=== PATIENT | male | born 1965 | race Caucasian/White ===

== ENCOUNTER → 2016-11-04 | Day surgery (SDC) | payer MEDICARE ==
[~2016-11-04] VITALS: Ht 165.1 cm; Wt 65.8 kg
[~2016-11-04] MED LIST: ANDROGEL TD; ASPI1TAB PO; ATIV1TAB10 PO; ATOR1TAB21 PO; BACL5TA PO; CALC600T10 PO; CELE100C PO; FLOM5CAP PO; HYDR25T PO; KETO10TAB PO; LEVO125T41 PO; LEVO150T OR; LIDOCAINE 2% INJ 100 MG/5 ML SDV (FOR ANES.) As Ordered ONE; LUNE1TAB9 PO; LevoFLOXacin 500 MG in APPROPRIATE DILUENT 1 EA IV ONE; MIDAZOLAM INJ 2 MG/2 ML VIAL (J2250) As Ordered ONE; MORP30SU RE; NEUR400C OR; PERC5TAB8 OR; PERCOCET PO; PRED10TA PO; PRED20TA OR; PROM25TA PO; VENL37.598 PO; VENL75CA PO; VITA200015 PO; ZOLO100T OR; [UNRECOGNIZED DRUG - CODE] TOP; fentaNYL 100 MCG/2 ML INJECTION (J3010) As Ordered ONE
--- NOTE | 2016-11-04 09:18 | REP ---
Clinical: Nephrolithiasis. Technique single supine view of the abdomen and pelvis. Findings: Approximately 12 mm calcification overlies the lower pole left kidney. Further evaluation of the urinary tract system is limited due to overlying bowel gas. No evidence for bowel obstruction. No organomegaly. Skeletal structures demonstrate age-related degenerative changes. Impression: Conglomerate of approximately 12 mm calcifications in the lower pole left kidney. Signed by Silvino Yadav MD 11/04/2016 09:09 A
[2016-11-04 11:35] VITALS: BP 128/86
--- NOTE | 2016-11-04 13:09 | RO ---
DATE OF PROCEDURE: 11/04/2016 PREPROCEDURE DIAGNOSIS: Left kidney stone. POSTPROCEDURE DIAGNOSIS: Left kidney stone. PROCEDURE: Left extracorporeal shock wave lithotripsy. SURGEON: Akin Gutierrez MD. MECHANICAL TEST TECHNICIAN: None. ANESTHESIA: Monitored anesthesia care (MAC). COMPLICATIONS: None. ESTIMATED BLOOD LOSS: N/A. HISTORY OF PRESENT ILLNESS: This is a 51-year-old male patient with a 10 mm stone in the left lower pole. He has consented for a left extracorporeal shock wave lithotripsy. DESCRIPTION OF PROCEDURE: With the patient under MAC anesthesia in supine position, we found the stone with ultrasound and x-ray. We gave a total of 2500 shock wave lithotripsies at a power of 1 to 20. The first 100 shock waves were done at a level of 1 to 5. The following 100 shock waves were done at a level of 5 to 10. The following 2300 shock waves were done at a level of 10 to 20. There were no complications after surgery. The patient tolerated well the procedure. We will follow the patient in 3 weeks at [facility]. We will given him Flomax and Percocet for pain. He can strain urine, increase water intake for 3 liters. There were no complications during surgery.
== END | disposition home or self-care (01) ==
LOC: M SDC 06:18
PROVIDERS: ATTEND Urology
DX: N20.0 Calculus of kidney (principal); M51.34 Other intervertebral disc degeneration, thoracic region; M50.30 Other cervical disc degeneration, unspecified cervical region; F32.9 Major depressive disorder, single episode, unspecified; N52.9 Male erectile dysfunction, unspecified; E78.00 Pure hypercholesterolemia, unspecified; E23.0 Hypopituitarism; M19.90 Unspecified osteoarthritis, unspecified site; G47.9 Sleep disorder, unspecified; F41.9 Anxiety disorder, unspecified; N40.0 Benign prostatic hyperplasia without lower urinary tract symptoms; Z79.899 Other long term (current) drug therapy; Z79.82 Long term (current) use of aspirin; Z79.52 Long term (current) use of systemic steroids; Z88.0 Allergy status to penicillin; Z88.8 Allergy status to other drugs, medicaments and biological substances
CPT/HCPCS: 36415; 50590; 74000; 86850; 86900; 86901; J1956; J2250; J3010

== ENCOUNTER → 2016-11-26 | Outpatient (CLI) | payer MEDICARE ==
[~2016-11-26] MED LIST changes: -LIDOCAINE 2% INJ 100 MG/5 ML SDV (FOR ANES.) As Ordered ONE; -LevoFLOXacin 500 MG in APPROPRIATE DILUENT 1 EA IV ONE; -MIDAZOLAM INJ 2 MG/2 ML VIAL (J2250) As Ordered ONE; -fentaNYL 100 MCG/2 ML INJECTION (J3010) As Ordered ONE
--- NOTE | 2016-11-29 14:13 | REP ---
MR LUMBAR SPINE WITHOUT CONTRAST: 11/26/2016 COMPARISON: 09/24/2009 CLINICAL HISTORY: Back pain, radiculopathy lumbar region. Osteoarthritis. TECHNIQUE: Axial and sagittal T1- and T2-sequences provided. Sagittal images show some loss of lordosis. There is disc space narrowing, greatest at the L1-2 level with discogenic endplate changes. Loss of disc water signal at all lumbar levels. There is no compression deformity. The conus terminates at upper aspect of L1. T11-12 and T12-L1 levels show no disc bulge or herniation and no spinal or foraminal stenosis. At L1-2, there is small posterior osteophytic ridge with broad-based disc bulge but no significant central canal stenosis. The foramina show adequate perineural fat without nerve root compression. At L2-3, there is only minimal disc bulge without central canal stenosis or foraminal encroachment. At L3-4, there is no significant disc bulge, central canal stenosis, or change in that appearance from previous. Some facet arthropathy is noted. The foramina show slight loss of perineural fat, left more than right, due to disc bulge but no nerve root compression. At the L4-5 level, there is a minimal disc bulge and some facet hypertrophy, but without central canal stenosis. The foramina are adequate and without nerve root compression on either side. At L5-S1, some broad-based disc bulge flattening the ventral thecal sac. Cross-sectional area of the canal intact. Hypertrophic facet changes noted. There is foraminal encroachment on the left and right side for those L5 nerve roots due to combined factors. No other findings. IMPRESSION: 1. Multilevel degenerative disc changes with bilateral foraminal encroachment at L5-S1 due to combined factors and minimal disc bulges at L4-5 and L5-S1.2. Progression of degenerative disc changes at L1-2 with broad-based disc bulge without central canal stenosis or significant foraminal encroachment. Otherwise stable. Signed by Sebastien Pickard MD 11/29/2016 02:34 P
== END ==
LOC: M RAD 13:07
PROVIDERS: ATTEND Family Medicine
DX: M47.26 Other spondylosis with radiculopathy, lumbar region (principal)

== ENCOUNTER → 2016-12-14 | Outpatient (CLI) | payer MEDICARE ==
--- NOTE | 2016-12-15 07:48 | DEXA ---
AP SPINE L1 - L4 1.395 1.3 1.7 LT FEMUR TOTAL 0.885 -1.5 -1.0 RT FEMUR TOTAL 0.917 -1.3 -0.8 TOTAL BODY TOTAL OTHER DUAL FEMUR FRAX* ASSESSMENT Risk factors: Chronic glucocorticoids, history of adult fracture, hypogonadism. 10 year probability of fracture Major osteoporotic fracture 14.1 % Hip fracture 2.1 % COMMENTS: Normal bone densitometry of the spine. There is low bone density of the hips. The increased density of the spine does represent a significant change. The increased density of the left hip does not represent a significant change. The increased density of the right hip does not represent a significant change. The density of the spine has increased 14.1% since the initial exam on 2008. The spine density has increased 7.6% since the most recent exam on 08/01/2013. The density of the left hip has decreased 5.0% since the initial exam on 2008. The density of the left hip has increased 0.1% since the most recent exam on 12/2012. The density of the right hip has decreased 4.0% since the initial exam on 2008. The density of the right hip has increased 0.0% since the most recent exam on . FOLLOW-UP: Recommendation for the next bone density exam: 2 years. EDWIN
== END ==
LOC: M WHC 11:16
PROVIDERS: ATTEND Physician Assistant Medical
DX: M85.80 Other specified disorders of bone density and structure, unspecified site (principal); E55.9 Vitamin D deficiency, unspecified; E03.9 Hypothyroidism, unspecified; E78.2 Mixed hyperlipidemia; Z79.82 Long term (current) use of aspirin; Z79.52 Long term (current) use of systemic steroids; Z79.899 Other long term (current) drug therapy

== ENCOUNTER → 2016-12-14 | Outpatient (REF) | payer MEDICARE ==
[2016-12-14 14:58] LABS: ALBUMIN 3.4 GM/DL (3.2-5.2); ALBUMIN/GLOBULIN RATIO 1.03 (1.00-1.93); ALKALINE PHOSPHATASE 135 U/L (45-117); ALT/SGPT 97 U/L (12-78); ANION GAP 8 MEQ/L (8-16); AST/SGOT 55 U/L (15-37); BILIRUBIN,TOTAL 0.5 MG/DL (0.2-1.0); BLOOD UREA NITROGEN 12 MG/DL (7-18); CALCIUM LEVEL 9.1 MG/DL (8.5-10.1); CARBON DIOXIDE LEVEL 28 MEQ/L (21-32); CHLORIDE LEVEL 105 MEQ/L (98-107); CHOLESTEROL LEVEL 174 MG/DL (<200); CREATININE FOR GFR 1.01 MG/DL (0.70-1.30); GLOMERULAR FILTRATION RATE > 60.0 (>56); GLUCOSE, FASTING 93 MG/DL (70-105); SODIUM LEVEL 141 MEQ/L (136-145); TOTAL PROTEIN 6.7 GM/DL (6.4-8.2); TRIGLYCERIDES LEVEL 179 MG/DL (<150)
== END ==
LOC: M SFHCPLAZ 10:51
PROVIDERS: ATTEND Physician Assistant Medical
DX: E55.9 Vitamin D deficiency, unspecified (principal); E03.9 Hypothyroidism, unspecified; E78.2 Mixed hyperlipidemia

== ENCOUNTER → 2017-01-13 | Outpatient (REF) | payer MEDICARE ==
[~2017-01-13] MED LIST changes: +ZOFR4TAB3 PO
[2017-01-13 12:49] LABS: BASO % 0.6 % (0.0-1.0); EOS # 0.1 K/mm3 (0.0-0.50); EOS % 1.3 % (0.0-3.0); LARGE UNSTAINED CELL # 0.1 K/mm3 (0.0-0.4); LARGE UNSTAINED CELL % 1.5 % (0.0-4.0); LYMPH % 33.2 % (24.0-44.0); MEAN CORPUSCULAR HEMOGLOBIN 33.5 pg (27.0-33.0); MEAN CORPUSCULAR HGB CONC 34.8 g/dl (32.0-36.5); MEAN CORPUSCULAR VOLUME 96.2 fl (80.0-96.0); MONO # 0.7 K/mm3 (0.0-0.8); MONO % 7.7 % (0.0-5.0); NEUTROPHILS # 4.8 K/mm3 (1.8-7.7); NEUTROPHILS % 55.7 % (36.0-66.0); PLATELET COUNT, AUTOMATED 347 k/mm3 (150-450); RED CELL DISTRIBUTION WIDTH 13.2 % (11.5-14.5); WHITE BLOOD COUNT 8.7 K/mm3 (4.0-10.0)
[2017-01-13 12:53] LABS: ALBUMIN 3.8 GM/DL (3.2-5.2); ALBUMIN/GLOBULIN RATIO 1.15 (1.00-1.93); ALKALINE PHOSPHATASE 113 U/L (45-117); ALT/SGPT 60 U/L (12-78); ANION GAP 9 MEQ/L (8-16); AST/SGOT 43 U/L (15-37); BILIRUBIN,TOTAL 0.4 MG/DL (0.2-1.0); BLOOD UREA NITROGEN 12 MG/DL (7-18); CALCIUM LEVEL 9.1 MG/DL (8.5-10.1); CARBON DIOXIDE LEVEL 27 MEQ/L (21-32); CHLORIDE LEVEL 107 MEQ/L (98-107); FREE T4 1.38 NG/DL (0.76-1.46); GLOMERULAR FILTRATION RATE > 60.0 (>56); GLUCOSE, FASTING 88 MG/DL (70-105); POTASSIUM SERUM 4.6 MEQ/L (3.5-5.1); SODIUM LEVEL 143 MEQ/L (136-145); TOTAL PROTEIN 7.1 GM/DL (6.4-8.2)
== END ==
LOC: M SFHCPLAZ 10:27
PROVIDERS: ATTEND Physician Assistant Medical
DX: E23.0 Hypopituitarism (principal); Z79.899 Other long term (current) drug therapy
CPT/HCPCS: 36415; 80053; 83970; 84439; 85025; G0463

== ENCOUNTER → 2017-01-14 | Outpatient (CLI) | payer MEDICARE ==
[~2017-01-14] MED LIST changes: -ZOFR4TAB3 PO
--- NOTE | 2017-01-14 13:34 | REP ---
KUB: Single view. History: Fecal incontinence. Comparison KUB November 04, 2016. Findings: There are mild degenerative disc changes at L1-2. No other bony abnormality is seen. Psoas margins are symmetric. Flank stripes are intact. The bowel gas pattern is unremarkable. There is no evidence of colonic distension or increased stool burden. No small bowel dilation is seen. Impression: Negative KUB. No pathologic calcification seen. The previously noted renal stone is no longer visible. Signed by Korey Rodrigues MD 01/14/2017 02:05 P
== END ==
LOC: M RAD 11:33
PROVIDERS: ATTEND Physician Assistant Medical
DX: R15.9 Full incontinence of feces (principal)

== ENCOUNTER → 2017-01-14 | Outpatient (CLI) | payer MEDICARE ==
--- NOTE | 2017-01-18 05:49 | SLEEPHOME ---
DATE OF PROCEDURE: 01/14/2017 ORDERED BY: Reuben Flores MD Diagnostic home sleep testing was performed due to concern for the obstructive sleep apnea syndrome. For testing, a NOX-T3 respiratory monitoring device was used. Continuous record was made of pulse, oxygen saturation, airflow, chest and abdominal strain, and body position. 10 hours and 59 minutes of data were reviewed. Of these, 8 hours and 41 minutes were marked as time in bed. During the interval marked time in bed, there were 203 respiratory events were identified of 10 seconds in duration or greater for a respiratory event index of 23.4. The events were primarily obstructive, not exclusive to sleep position. Baseline oxygen saturation was 89%. Lowest oxygen saturation reliably recorded 81%. Baseline pulse rate 69 beats per minute. Pulse rate ranged 50-111. IMPRESSION: Abnormal home sleep testing with repetitive respiratory events and oxygen desaturations to 81% with a respiratory event index of 23.4 is consistent with the obstructive sleep apnea syndrome. RECOMMENDATION: The patient should be referred for a formal sleep evaluation and in-laboratory pressure titration.
== END ==
LOC: M SLEEP 11:39
PROVIDERS: ATTEND Family Medicine
DX: G47.9 Sleep disorder, unspecified (principal)

== ENCOUNTER 2017-01-25 05:23 | Emergency (ER) | payer MEDICARE ==
[2017-01-25] MEDS ORDERED: NS 1,000 ML IV ONE (06:00)
[2017-01-25 06:11] LABS: ALBUMIN 3.2 GM/DL (3.2-5.2); ALKALINE PHOSPHATASE 107 U/L (45-117); ALT/SGPT 27 U/L (12-78); ANION GAP 9 MEQ/L (8-16); AST/SGOT 29 U/L (15-37); BILIRUBIN,DIRECT 0.1 MG/DL (0.0-0.2); BILIRUBIN,TOTAL 0.4 MG/DL (0.2-1.0); BLOOD UREA NITROGEN 19 MG/DL (7-18); CALCIUM LEVEL 8.6 MG/DL (8.5-10.1); CARBON DIOXIDE LEVEL 25 MEQ/L (21-32); CHLORIDE LEVEL 106 MEQ/L (98-107); CREATININE FOR GFR 1.09 MG/DL (0.70-1.30); GLOMERULAR FILTRATION RATE > 60.0 (>56); GLUCOSE, FASTING 101 MG/DL (70-105); POTASSIUM SERUM 3.5 MEQ/L (3.5-5.1); SODIUM LEVEL 140 MEQ/L (136-145); TOTAL PROTEIN 6.4 GM/DL (6.4-8.2)
[2017-01-25 06:14] LABS: MEAN CORPUSCULAR HEMOGLOBIN 33.9 pg (27.0-33.0); MEAN CORPUSCULAR HGB CONC 35.8 g/dl (32.0-36.5); MEAN CORPUSCULAR VOLUME 94.6 fl (80.0-96.0); PLATELET COUNT, AUTOMATED 369 k/mm3 (150-450); RED CELL DISTRIBUTION WIDTH 12.9 % (11.5-14.5)
[2017-01-25 07:06] LABS: EOSINOPHILS 2 % (0-5)
[2017-01-25] MEDS ORDERED: KETOROLAC 30 MG/ML VIAL (J1885) IV ONE (07:15)
[2017-01-25] MEDS ORDERED: ONDANSETRON 4MG/2ML VIAL (J2405) IV ONE (07:15)
[2017-01-25] MEDS ORDERED: ZOFR4TAB3 PO (08:01)
[2017-01-25 08:28] VITALS: BP 103/56
== END 2017-01-25 08:29 | disposition home or self-care (01) ==
LOC: EDBD 05:23 → M ED 06:21
DX: E86.0 Dehydration (principal); A08.4 Viral intestinal infection, unspecified; F32.9 Major depressive disorder, single episode, unspecified; E23.0 Hypopituitarism; Z87.442 Personal history of urinary calculi; Z88.0 Allergy status to penicillin; Z88.8 Allergy status to other drugs, medicaments and biological substances; Z79.899 Other long term (current) drug therapy; Z79.82 Long term (current) use of aspirin
CPT/HCPCS: 80048; 80076; 83690; 85025; 93041; 96361; 96374; 96375; 99284; J1885; J2405

== ENCOUNTER → 2017-03-03 | Outpatient (REF) | payer MEDICARE ==
[~2017-03-03] MED LIST changes: +ZOFR4TAB3 PO
[2017-03-03 13:20] LABS: ALBUMIN 3.6 GM/DL (3.2-5.2); ALBUMIN/GLOBULIN RATIO 1.13 (1.00-1.93); ALKALINE PHOSPHATASE 121 U/L (45-117); ALT/SGPT 37 U/L (12-78); ANION GAP 10 MEQ/L (8-16); AST/SGOT 28 U/L (15-37); BILIRUBIN,TOTAL 0.4 MG/DL (0.2-1.0); BLOOD UREA NITROGEN 16 MG/DL (7-18); CARBON DIOXIDE LEVEL 26 MEQ/L (21-32); CHLORIDE LEVEL 106 MEQ/L (98-107); CREATININE FOR GFR 0.93 MG/DL (0.70-1.30); GLOMERULAR FILTRATION RATE > 60.0 (>56); GLUCOSE, FASTING 88 MG/DL (70-105); POTASSIUM SERUM 4.3 MEQ/L (3.5-5.1); SODIUM LEVEL 142 MEQ/L (136-145); TOTAL PROTEIN 6.8 GM/DL (6.4-8.2)
[2017-03-04 11:08] LABS: ALBUMIN 3.84 GM/DL (3.29-5.55); ALBUMIN % 56.5 % (55.8-66.1); GAMMA GLOBULIN % 16.2 % (11.1-18.8)
== END ==
LOC: M SFHCPLAZ 08:54
PROVIDERS: ATTEND Family Medicine
DX: M79.1 Myalgia (principal)

== ENCOUNTER → 2017-03-24 | Outpatient (CLI) | payer MEDICARE ==
--- NOTE | 2017-03-24 11:46 | REP ---
MR BRAIN WITHOUT CONTRAST: HISTORY: Right paresthesias. COMPARISON: 05/05/2006 Scattered punctate areas of increased signal intensity on T2-weighted images are present in the periventricular and subcortical white matter. This represents small vessel ischemic disease. There is no intraparenchymal hemorrhage, infarct, mass or midline shift. The sella turcica is partially empty. The ventricular system is normal in appearance. A lyudmila cisterna magna is present. There is no extracerebral collection. Mucosal thickening is present in the maxillary sinuses. IMPRESSION: Minimal small vessel ischemic disease. Signed by Oren Erwin MD 03/24/2017 12:09 P
== END ==
LOC: M RAD 10:18
PROVIDERS: ATTEND Physician Assistant Medical
DX: R53.1 Weakness (principal); I73.9 Peripheral vascular disease, unspecified

== ENCOUNTER → 2017-03-31 | Outpatient (CLI) | payer MEDICARE ==
--- NOTE | 2017-04-11 08:05 | SLEEPCENT ---
DATE OF PROCEDURE: 03/31/2017 ORDERED BY: Nazia Jenkins Nocturnal polysomnography was performed for the titration of pressure therapy in this patient with a clinical diagnosis of obstructive sleep apnea syndrome which were supported by home testing revealing a respiratory event index of 23. For testing, the patient was fit with a [employer] Simplus full face mask of small size. 4 cm of water pressure were applied to the circuit and the lights were extinguished. 8 hours and 28 minutes of data were reviewed. There were 432 minutes of sleep identified. Sleep latency was normal at 17 minutes. REM latency was prolonged at 220 minutes. Sleep architecture improved late in the study. Overall sleep efficiency was 86%. EKG showed a sinus rhythm with an average heart rate of 56 beats per minute. Frequent ventricular ectopic beats were seen. EEG showed coarsening in background consistent with medication effect. No focal events were identified. Respiratory events were found best palliated with CPAP at a pressure of +9 with which the patient slept through REM late in the study without respiratory event or oxygen desaturation. There was some limb activity but arousals from limb events occurred 7.2 times per hour. IMPRESSION: Obstructive sleep apnea syndrome (G47.33). RECOMMENDATION: Nightly use of pressure therapy 9 cm of water.
== END ==
LOC: M SLEEP 19:19
PROVIDERS: ATTEND Nurse Practitioner Adult Health
DX: G47.33 Obstructive sleep apnea (adult) (pediatric) (principal)

== ENCOUNTER → 2017-06-20 | Outpatient (CLI) | payer MEDICARE, MEDICAID ==
[~2017-06-20] MED LIST changes: +BACL10TA5 PO; -BACL5TA PO; -CALC600T10 PO; +CALC600T31 PO; +HYDR-3291 PO; +HYDR-3363 PO; -HYDR25T PO; -LUNE1TAB9 PO; +LUNE2TAB23 PO; -PRED10TA PO; +PRED10TA2 PO; +PREG100CA PO; -VENL75CA PO; +VENL75CA2 PO
--- NOTE | 2017-07-06 00:15 | ECWPNPC ---
PATIENT NAME: JACKIE AMBROSE : 1965 GENDER: MALE VISIT DATE: 06/20/2017 DISCHARGE DATE: 06/20/17 1644 VISIT LOCKED DATE TIME: PHYSICIAN: SHARON PALMER RESOURCE: SHARON PALMER REASON FOR APPOINTMENT 1. LOW BACK PAIN HISTORY OF PRESENT ILLNESS NEW PATIENT CONSULT: WHEN DID YOUR PAIN FIRST START? . BRIEFLY DESCRIBE HOW YOUR PAIN STARTED? . HOW DOES YOUR PAIN CHANGE WITH TIME? . DOES YOUR PAIN AWAKEN YOU FROM SLEEP? . HOW MANY HOURS OF SLEEP DO YOU NORMALLY GET? . ANY DIAGNOSTIC TESTING? . FACILITY WHERE TESTS WERE DONE? ____. PAIN TREATMENT TREATMENT YES CANCER HAVE YOU EVER HAD ANY TYPE OF CANCER?NO NO. 52 YEAR OLD MALE PATIENT WITH HISTORY OF CHRONIC LOW BACK PAIN. PATIENT DESCRIBES THE PAIN ACHING, TENDER, SORE, AND THROBBING WITH A PAIN SCORE OF 6/10. PATIENT STATES HIS PAIN STARTED ROUGHLY 20 YEARS AGO WHEN HE FELL FROM A ROOF. PATIENT RECEIVED A RADIOFREQUENCY IN [place] 2 YEARS AGO AND STATES AFTER THE INTERVENTION HE STARTED TO HAD PINS AND NEEDLE SENSATION DOWN HIS LEGS. PATIENT DOES NOT WANT TO USE NARCOTICS AT THIS TIME. PATIENT STATES THAT PHYSICAL THERAPY DID NOT AID THE PATIENT IN PAIN RELIEF IN THE PAST. PATIENT DENIES UNEXPLAINABLE WEIGHT LOSS, FEVER, CHILLS, NEW CHANGES ON HIS URINARY OR BOWEL CONTROL. PAIN SCREENING: PATIENT HAS A COMPLAINT OF ACUTE OR CHRONIC PAIN :YES FALL RISK SCREENING: SCREENING :NO FALLS IN THE PAST YEAR DAVID INVENTORY: QUESTIONNAIRE ASSESSEDTBD SCORE VALUE CALCULATED TBD CURRENT MEDICATIONS TAKING LEVOTHYROXINE SODIUM 125 MCG TABLET 1 TABLET ORALLY ONCE A DAY: CLARIFICATION LOWERED DOSE FURTHER TAKING CALCIUM 600 600 MG TABLET 1 TABLET ORALLY ONCE A DAY TAKING ANDROGEL 20.25 MG/1.25GM (1.62%) GEL 1 APPLICATION TO AFFECTED AREA TRANSDERMAL ONCE A DAY TAKING LUNESTA 2 MG TABLET 1 TABLET IMMEDIATELY BEFORE BEDTIME ORALLY ONCE A DAY TAKING VENLAFAXINE HCL ER 75 MG CAPSULE EXTENDED RELEASE 24 HOUR 1 CAPSULE WITH FOOD ORALLY ONCE A DAY TAKING ATIVAN 0.5 MG TABLET 1 TABLET NEEDED ORALLY EVERY 6 HRS NEEDED FOR ANXIETY MDD = 3 TAKING VITAMIN D3 2000 UNIT CAPSULE 1 CAPSULE ORALLY ONCE A DAY TAKING ATORVASTATIN CALCIUM 20 MG TABLET 1 TABLET ORALLY ONCE A DAY TAKING HYDROCORTISONE 10 MG TABLET 1 IN AM / 2 IN MID AFTERNOON/ 2 IN PM ORALLY TID TAKING MEDICAL ID BRACELET - MISCELLANEOUS DIRECTED NECKLACE DAILY DX: E27.4 TAKING VENLAFAXINE HCL ER 75 MG CAPSULE EXTENDED RELEASE 24 HOUR 1 CAPSULE WITH FOOD ORALLY ONCE A DAY TAKING VITAMIN D3 2000 UNIT CAPSULE 1 CAPSULE ORALLY ONCE A DAY TAKING LYRICA 200 MG CAPSULE 1 CAP ORALLY THREE TIMES DAILY NOT-TAKING ASPIR-81 81 MG TABLET DELAYED RELEASE 1 TABLET ORALLY ONCE A DAY NOT-TAKING COLACE 100 MG CAPSULE 1 CAPSULE NEEDED ORALLY BID NOT-TAKING SENNA 8.6 MG TABLET 2 TABLETS AT BEDTIME NEEDED ORALLY ONCE A DAY NOT-TAKING LEVITRA 2.5 MG TABLET 1 TABLET NEEDED WITHIN 24 HOURS ORALLY ONCE A DAY NOT-TAKING CLARITIN 10 MG TABLET 1 TABLET ORALLY ONCE A DAY NOT-TAKING FLUTICASONE PROPIONATE 50 MCG/ACT SUSPENSION 1 SPRAY IN EACH NOSTRIL NASALLY ONCE A DAY NOT-TAKING SOLU-CORTEF 100 MG SOLUTION RECONSTITUTED DIRECTED INJECTION ACT-O-VIAL PRN ACUTE ADRENAL INSUFFICIENCY NOT-TAKING ANDROGEL PUMP 20.25 MG/ACT (1.62%) GEL TO UNDER ARMS TRANSDERMAL ONCE A DAY MDD 2PUMPS NOT-TAKING LEVOTHYROXINE SODIUM 125 MCG TABLET 1 TABLET ORALLY ONCE A DAY MEDICATION LIST REVIEWED AND RECONCILED WITH THE PATIENT PAST MEDICAL HISTORY 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 POZO EXCEPT FOR MEDIUM HIATAL HERNIA ERECTILE DYSFUNCTION DEPRESSION HISTORY OF PAROXYSMAL ATRIAL FIBRILLATION-AUGUST 04, 2010 PROBABLY SECONDARY TO NARCOTIC WITHDRAWAL-JULY 2010 RST WITHOUT REVERSIBILITY-DR. JEAN/AUGUST 2010 TTE NORMAL-DR. JEAN RIGHT CARPAL TUNNEL SYNDROME-SEPTEMBER 2010 NCS-MILD RIGHT MEDIAN NEUROPATHY AT THE WRIST WITHOUT RADICULOPATHY-SMITH LEUKOCYTOSIS, CHRONIC OSTEOPOROSIS LUMBAR DJD-MINIMAL BULGES L4-S1, BILATERAL L5/S1 NF NARROWING BY 10/2016 MRI JOCELYN, SEVERE-12/2016 HST GERARDO 23, SAO2 TO 81% ALLERGIES PENICILLIN (FOR ALLERGIES USE ONLY): HARD TO BREATHE, SKIN REDNESS: ALLERGY SURGICAL HISTORY NO SURGICAL HISTORY DOCUMENTED. FAMILY HISTORY MOTHER: DIAGNOSED WITH DIABETES SOCIAL HISTORY GENERAL: PAIN CLINIC PFS, CLERGY, PUBLIC HEALTH REFERRALS CLERGY REFERRAL NEEDED?NO WAS THE PROVIDER NOTIFIED OF ANY PERTINENT INFO?NO PFS REFERRAL NEEDED?NO PUBLIC HEALTH REFERRAL NEEDED?NO PATIENT: ____. HOSPITALIZATION/MAJOR DIAGNOSTIC PROCEDURE NO HOSPITALIZATION HISTORY. REVIEW OF SYSTEMS REVIEWED BY: PROVIDER: SHARON PALMER MD . CONSTITUTIONAL: ANY CHANGE IN YOUR MEDICAL CONDITION? NO . CHILLS NO . FEVER NO . INFECTION: DO YOU HAVE NEW INFECTIONS? NO . DO YOU HAVE HISTORY OF MRSA? NO . MUSCULOSKELETAL: ANY NEW PATTERNS OF PAIN OR NUMBNESS? YES RIGHT LEG INCREASING IN NUMBNESS AND IS PAINFUL-BURNING . SYTEMIC LUPUS NO . GASTROENTEROLOGY: ANY NEW CHANGE IN BOWEL CONTROL? NO . BARRETTS ESOPHAGUS NO . CIRRHOSIS NO . HEPATITIS NO . LIVER FAILURE NO . ACID REFLUX NO . UNEXPLAINED WEIGHT LOSS NO . GENITOURINARY: ANY NEW CHANGE IN BLADDER CONTROL? NO . IS THERE A CHANCE YOU COULD BE ? NO . HEMATOLOGY/LYMPH: DO YOU TAKE ANY BLOOD THINNERS? (FOR EXAMPLE- COUMADIN, PLAVIX, AGGRENOX, PLATEL, PRADAXA, OR XARELTO) NO . WHEN WAS YOUR LAST DOSE? DATE: TIME: . LOW PLATELET COUNT NO . SICKLE CELL DISEASE NO . VON WILLIEBRANDS NO . FACTOR V LEIDEN NO . THALLASEMIA NO . ANEMIA NO . EASY BRUISING NO . NEUROLOGY: HAVE YOU FALLEN IN THE PAST 6 MONTHS? NO . ANY NEW EXTREMITY NUMBNESS OR WEAKNESS? NO . HEAD INJURY NO . DEMENTIA NO . CEREBRAL PALSY NO . MULTIPLE SCLEROSIS NO . DIZZINESS NO . HEADACHE NO . STROKES NO . VERTIGO NO . CARDIOLOGY: DO YOU HAVE A PACEMAKER OR DEFIBRILLATOR? NO . ANGINA NO . HEART ATTACK NO . HEART SURGERY NO . CONGESTIVE HEART FAILURE/FLUID OVERLOAD NO . CHEST PAIN NO . HIGH BLOOD PRESSURE NO . IRREGULAR HEART BEAT NO . RESPIRATORY: HAVE YOU BEEN SICK IN THE PAST WEEK? NO . FEVER NO . FLU LIKE SYMPTOMS? NO . CPAP YES . BYPAP NO . ASTHMA NO . EMPHYSEMA NO . CHRONIC LUNG DISEASES NO . SHORTNESS OF BREATH ON EXERTION NO . DO YOU USE ANY TYPE OF TOBACCO (SMOKE, SMOKELESS, CHEW)? NO . COUGH NO . SNORING NO . INTEGUMENTARY: DO YOU HAVE ANY RASHES OR OPEN SORES? NO . ALLERGIC/IMMUNO: ARE YOU ALLERGIC TO SHELLFISH OR IV DYE? NO . ANY NEW ALLERGIES? NO . PSYCHIATRIC: DO YOU HAVE THOUGHTS OF HURTING YOURSELF OR SOMEONE ELSE? NO . ARE YOU ABUSED, NEGLECTED, OR IN AN UNSAFE ENVIRONMENT? NO . ENDOCRINOLOGY: ARE YOU DIABETIC? NO . THYROID DISORDER PANHYPOPITUTARISM . OTHER: DO YOU NEED ANY PRESCRIPTIONS? NO . IF YES, PLEASE LIST: ____ . ANY NEW PROBLEMS WITH YOUR MEDICATIONS? NO . WHEN DID YOU LAST EAT? ____ . WHEN DID YOU LAST DRINK? ____ . WHAT DID YOU LAST DRINK? ____ . NAME OF PERSON DRIVING YOU HOME? ____ . DO YOU HAVE ANY OTHER QUESTIONS OR CONCERNS NO . VITAL SIGNS WT 159.2 LBS, HT 65 IN, BMI 26.49 INDEX, BP 122/80 MM HG, HR 83 /MIN, RR 18 /MIN, TEMP 98.3 F, OXYGEN SAT % 95%, NA INITIALS SC 15:03, REVIEWED BY: KG. EXAMINATION : PATIENT IS ALERT O X 3 AND COOPERATIVE. TENDERNESS IN THE LOWER BACK AND PARASPINAL MUSCLE GROUP. LIMPING FROM THE RIGHT LEG. RIGHT LEG WEAKER THEN THE LEFT AT EXTENSION AND FLEXION. MRI DONE ON 11/26/16 OF THE LUMBAR SPINE SHOWS MULTILEVEL DISC DEGENERATION ALONG WITH DISC BULGES AT L4-L5 AND L5-S1. ASSESSMENTS INTERVERTEBRAL DISC DISORDER WITH RADICULOPATHY OF LUMBAR REGION - M51.16 (PRIMARY) INTERVERTEBRAL DISC DISORDER WITH RADICULOPATHY OF LUMBOSACRAL REGION - M51.17 TREATMENT INTERVERTEBRAL DISC DISORDER WITH RADICULOPATHY OF LUMBAR REGION NOTES: WE DISCUSSED SEVERAL ISSUES WITH MR. AMBROSE'S PAIN MANAGEMENT CASE. AT THIS TIME THE PATIENT WILL CONTINUE TO USE LYRICA FOR THE NEUROPATHIC PAIN. PATIENT WILL NOT BE PRESCRIBED ANY NEW MEDICATIONS AT TODAY'S VISIT. DUE TO THE RADICULAR PAIN AND AFTER VIEWING THE MRI I WOULD LIKE TO PROCEED WITH AN INTERLAMINA EPIDURAL. WE DISCUSSED THE RISK, BENENFITS, AND ALTNERATIVES OF THE INJECTION AND AT THIS TIME THE PATIENT WOULD LIKE TO PROCEED. INSTRUCTIONS WERE GIVEN, QUESTIONS WERE ANSWERED, PATIENT REPORTS UNDERSTANDING AND AGREES WITH THE PLAN. I, RAZA CHIRINOS, DOCUMENTED THE ABOVE INFORMATION ACTING A SCRIBE FOR DR. PALMER. I HAVE REVIEWED THE ABOVE DOCUMENT, WRITTEN BY RAZA MELTON AND I VERIFY THAT IT IS ACCURATE. PREVENTIVE MEDICINE DISCUSSED LESI AND PREPROCEDURE CARE WITH PT EXPRESSING UNDERSTANDING OF BOTH. PROCEDURE CODES G8427 DOC MEDS VERIFIED W/PT OR RE G8730 PAIN ASSESS POS TOOL F/U PLAN DOC FA211 ESTABILISHED PATIENT [facility] CHARGE DISPOSITION & COMMUNICATION FOLLOW UP 3 WEEKS ELECTRONICALLY SIGNED BY SHARON PALMER MD ON 07/05/2017 AT 03:26 PM EDT DISCLAIMER : THIS IS A VISIT SUMMARY EXTRACTED FROM THE [employer] App CHART. IT IS NOT A COPY OF THE [employer] PROGRESS NOTE. EDIWN
== END ==
LOC: M PAIN 15:30
PROVIDERS: ATTEND Anesthesiology
DX: G89.29 Other chronic pain (principal); M51.16 Intervertebral disc disorders with radiculopathy, lumbar region; M51.17 Intervertebral disc disorders with radiculopathy, lumbosacral region; M85.80 Other specified disorders of bone density and structure, unspecified site; N52.9 Male erectile dysfunction, unspecified; F32.9 Major depressive disorder, single episode, unspecified; G56.01 Carpal tunnel syndrome, right upper limb; D72.829 Elevated white blood cell count, unspecified; E29.1 Testicular hypofunction; M81.0 Age-related osteoporosis without current pathological fracture; G47.33 Obstructive sleep apnea (adult) (pediatric); Z79.899 Other long term (current) drug therapy; Z88.0 Allergy status to penicillin

== ENCOUNTER 2017-07-10 09:46 | Emergency (ER) | payer MEDICARE, MEDICAID ==
[~2017-07-10] VITALS: Ht 165.1 cm; Wt 71.8 kg
[2017-07-10 09:46] VITALS: BP 138/83
[~2017-07-10 09:46] MED LIST changes: -HYDR-3291 PO; -PREG100CA PO
[2017-07-10] MEDS ORDERED: PREG100CA PO (09:56)
[2017-07-10] MEDS ORDERED: HYDR-3291 PO (09:56)
--- NOTE | 2017-07-10 10:52 | REP ---
Clinical: Trauma . Technique: Internal rotation, external rotation, and Y view left shoulder. Comparison: 10/17/2012. Findings: No acute fracture or dislocation. Mild acromioclavicular joint separation cannot be excluded and should be correlated with point of tenderness and mechanism of injury. The glenohumeral joint is intact. No periarticular calcifications or degenerative changes are appreciated. Sub acromial space is normal. Surrounding soft tissues are unremarkable. Impression: Cannot exclude mild grade 1 AC joint separation. No acute fracture. Signed by Silvino Yadav MD 07/10/2017 10:43 A
--- NOTE | 2017-07-10 10:55 | REP ---
Clinical: Trauma. Technique: Frontal view of the chest with multiple views of the left hemithorax. Findings: Frontal view of the chest demonstrates no acute cardiopulmonary process, contusion, effusion, or pneumothorax. Multiple views of the left hemithorax demonstrates no acute rib fracture/injury or pathology. Impression: Normal left rib series. Signed by Silvino Yadav MD 07/10/2017 10:45 A
== END 2017-07-10 11:18 | disposition home or self-care (01) ==
LOC: M ED 09:46
DX: S43.52XA Sprain of left acromioclavicular joint, initial encounter (principal); S20.212A Contusion of left front wall of thorax, initial encounter; W19.XXXA Unspecified fall, initial encounter; Y92.009 Unspecified place in unspecified non-institutional (private) residence as the place of occurrence of the external cause; Y93.02 Activity, running; Y99.8 Other external cause status; G47.33 Obstructive sleep apnea (adult) (pediatric); F41.9 Anxiety disorder, unspecified; E23.0 Hypopituitarism; Z87.442 Personal history of urinary calculi; Z88.8 Allergy status to other drugs, medicaments and biological substances; Z88.0 Allergy status to penicillin; Z79.899 Other long term (current) drug therapy

== ENCOUNTER → 2017-07-19 | Outpatient (CLI) | payer MEDICARE, MEDICAID ==
[~2017-07-19] MED LIST changes: +HYDR-3291 PO; +ISOVUE-M 300 61% 15ML VIAL (Q9967) As Ordered ONE; +LIDOCAINE 1% SDV INJ 30 ML VIAL As Ordered ONE; +PREG100CA PO; +diazePAM 5 MG TAB As Ordered ONE; +methylPREDNISolone SUSP 40 MG/ML (DEPO-medrol) VIAL (J1030) As Ordered ONE; +oxyCODONE 5MG TAB As Ordered ONE
--- NOTE | 2017-07-19 15:29 | REP ---
Partial lumbar spine series: Three views . History: Injection procedure for pain. 11 seconds of fluoroscopy time is reported. Findings: A sequence of three fluoroscopically obtained last image hold procedural spot radiographs of the lumbar spine document needle position and contrast injection associated with injection procedure. Signed by Korey Rodrigues MD 07/19/2017 03:20 P
--- NOTE | 2017-07-20 00:08 | ECWPNPC ---
PATIENT NAME: JACKIE AMBROSE : 1965 GENDER: MALE VISIT DATE: 07/19/2017 DISCHARGE DATE: 07/19/171424 VISIT LOCKED DATE TIME: PHYSICIAN: SHARON PALMER RESOURCE: SHARON PALMER REASON FOR APPOINTMENT 1. LE HISTORY OF PRESENT ILLNESS HISTORY OF PRESENT ILLNESS: PAIN THE PATIENT DESCRIBES THE PAIN... FALL RISK SCREENING: SCREENING :NO FALLS IN THE PAST YEAR CURRENT MEDICATIONS TAKING LEVOTHYROXINE SODIUM 125 MCG TABLET 1 TABLET ORALLY ONCE A DAY: CLARIFICATION LOWERED DOSE FURTHER, NOTES: 07/19/17529 TAKING CALCIUM 600 600 MG TABLET 1 TABLET ORALLY ONCE A DAY, NOTES: 07/19/17529 TAKING VENLAFAXINE HCL ER 75 MG CAPSULE EXTENDED RELEASE 24 HOUR 1 CAPSULE WITH FOOD ORALLY ONCE A DAY, NOTES: 07/19/17529 TAKING VITAMIN D3 2000 UNIT CAPSULE 1 CAPSULE ORALLY ONCE A DAY, NOTES: 07/19/17529 TAKING HYDROCORTISONE 10 MG TABLET 1 IN AM / 2 IN MID AFTERNOON/ 11/01 IN PM ORALLY TID, NOTES: 07/19/17529 TAKING MEDICAL ID BRACELET - MISCELLANEOUS DIRECTED NECKLACE DAILY DX: E27.4 TAKING LUNESTA 2 MG TABLET 1 TABLET IMMEDIATELY BEFORE BEDTIME ORALLY AT BEDTIME PRN INSOMNIA, NOTES: 07/18/172099 TAKING ATIVAN 0.5 MG TABLET 1 TABLET NEEDED ORALLY EVERY 6 HRS NEEDED FOR ANXIETY MDD = 3, NOTES: 07/18/17699 TAKING ANDROGEL PUMP 20.25 MG/ACT (1.62%) GEL TO UNDER ARMS TRANSDERMAL ONCE A DAY MDD 2PUMPS, NOTES: 07/19/17699 TAKING ATORVASTATIN CALCIUM 20 MG TABLET 1 TAB ORALLY BEFORE BEDTIME, NOTES: 07/19/17529 TAKING LYRICA 200 MG CAPSULE 1 CAP ORALLY THREE TIMES DAILY, NOTES: 07/19/17529 NOT-TAKING VENLAFAXINE HCL ER 75 MG CAPSULE EXTENDED RELEASE 24 HOUR 1 CAPSULE WITH FOOD ORALLY ONCE A DAY NOT-TAKING VITAMIN D3 2000 UNIT CAPSULE 1 CAPSULE ORALLY ONCE A DAY NOT-TAKING ASPIR-81 81 MG TABLET DELAYED RELEASE 1 TABLET ORALLY ONCE A DAY NOT-TAKING COLACE 100 MG CAPSULE 1 CAPSULE NEEDED ORALLY BID NOT-TAKING SENNA 8.6 MG TABLET 2 TABLETS AT BEDTIME NEEDED ORALLY ONCE A DAY NOT-TAKING LEVITRA 2.5 MG TABLET 1 TABLET NEEDED WITHIN 24 HOURS ORALLY ONCE A DAY NOT-TAKING CLARITIN 10 MG TABLET 1 TABLET ORALLY ONCE A DAY NOT-TAKING FLUTICASONE PROPIONATE 50 MCG/ACT SUSPENSION 1 SPRAY IN EACH NOSTRIL NASALLY ONCE A DAY NOT-TAKING SOLU-CORTEF 100 MG SOLUTION RECONSTITUTED DIRECTED INJECTION ACT-O-VIAL PRN ACUTE ADRENAL INSUFFICIENCY NOT-TAKING LEVOTHYROXINE SODIUM 125 MCG TABLET 1 TABLET ORALLY ONCE A DAY MEDICATION LIST REVIEWED AND RECONCILED WITH THE PATIENT PAST MEDICAL HISTORY 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 POZO EXCEPT FOR MEDIUM HIATAL HERNIA ERECTILE DYSFUNCTION DEPRESSION HISTORY OF PAROXYSMAL ATRIAL FIBRILLATION-AUGUST 04, 2010 PROBABLY SECONDARY TO NARCOTIC WITHDRAWAL-JULY 2010 RST WITHOUT REVERSIBILITY-DR. JEAN/AUGUST 2010 TTE NORMAL-DR. JEAN RIGHT CARPAL TUNNEL SYNDROME-SEPTEMBER 2010 NCS-MILD RIGHT MEDIAN NEUROPATHY AT THE WRIST WITHOUT RADICULOPATHY-SMITH LEUKOCYTOSIS, CHRONIC OSTEOPOROSIS LUMBAR DJD-MINIMAL BULGES L4-S1, BILATERAL L5/S1 NF NARROWING BY 10/2016 MRI JOCELYN, SEVERE-12/2016 HST GERARDO 23, SAO2 TO 81% ALLERGIES PENICILLIN (FOR ALLERGIES USE ONLY): HARD TO BREATHE, SKIN REDNESS: ALLERGY SURGICAL HISTORY R CTR-ANASTACIO 12/2010 NERVES BURNED RIGHT LOWER BACK/LEFT LOWER BACK L [id number]-[id number] 11/04/16 SOCIAL HISTORY GENERAL: PAIN CLINIC PFS, CLERGY, PUBLIC HEALTH REFERRALS PFS REFERRAL NEEDED?NO CLERGY REFERRAL NEEDED?NO PUBLIC HEALTH REFERRAL NEEDED?NO WAS THE PROVIDER NOTIFIED OF ANY PERTINENT INFO?YES HAS THE PATIENT BEEN EDUCATED REGARDING HIS/HER PLAN OF CARE?YES PLEASE DOCUMENT ANY ADDTIONAL DETAILS. LUMBAR EPIDURAL STEROID INJECTION HAS THE PATIENT BEEN EDUCATED REGARDING PAIN, THE RISK FOR PAIN, THE IMPORTANCE OF EFFECTIVE PAIN MANAGEMENT, AND THE PAIN ASSESSMENT PROCESS?YES REVIEWED BY: YULIYA. PATIENT: ____. HOSPITALIZATION/MAJOR DIAGNOSTIC PROCEDURE NARCOTIC WITHDRAWAL/POSSIBLE ADRENAL CRISIS 09/30-04/15 REVIEW OF SYSTEMS REVIEWED BY: PROVIDER: . CONSTITUTIONAL: ANY CHANGE IN YOUR MEDICAL CONDITION? NO . CHILLS NO . FEVER NO . INFECTION: DO YOU HAVE NEW INFECTIONS? NO . DO YOU HAVE HISTORY OF MRSA? NO . MUSCULOSKELETAL: ANY NEW PATTERNS OF PAIN OR NUMBNESS? NO . GASTROENTEROLOGY: ANY NEW CHANGE IN BOWEL CONTROL? NO . GENITOURINARY: ANY NEW CHANGE IN BLADDER CONTROL? NO . IS THERE A CHANCE YOU COULD BE ? NO . HEMATOLOGY/LYMPH: DO YOU TAKE ANY BLOOD THINNERS? (FOR EXAMPLE- COUMADIN, PLAVIX, AGGRENOX, PLATEL, PRADAXA, OR XARELTO) NO . WHEN WAS YOUR LAST DOSE? DATE: TIME: . NEUROLOGY: HAVE YOU FALLEN IN THE PAST 6 MONTHS? YES, PT STATES HE FELL 2 WEEKS AGO FOR RIGHT LEG WEAKNESS. PT STATES HE SAW HIS PCP S/P FALL AND IS BEING TX'D WITH PHYSICAL THERAPY, PT STATES THIS IS HELPING&NBSP;. ANY NEW EXTREMITY NUMBNESS OR WEAKNESS? &NBSP;&NBSP; NO&NBSP;. CARDIOLOGY: DO YOU HAVE A PACEMAKER OR DEFIBRILLATOR? NO . RESPIRATORY: HAVE YOU BEEN SICK IN THE PAST WEEK? NO . FEVER NO . FLU LIKE SYMPTOMS? NO . COUGH NO . INTEGUMENTARY: DO YOU HAVE ANY RASHES OR OPEN SORES? NO . ALLERGIC/IMMUNO: ARE YOU ALLERGIC TO SHELLFISH OR IV DYE? NO . ANY NEW ALLERGIES? NO . PSYCHIATRIC: DO YOU HAVE THOUGHTS OF HURTING YOURSELF OR SOMEONE ELSE? NO . ARE YOU ABUSED, NEGLECTED, OR IN AN UNSAFE ENVIRONMENT? NO . ENDOCRINOLOGY: ARE YOU DIABETIC? NO . OTHER: DO YOU NEED ANY PRESCRIPTIONS? NO . IF YES, PLEASE LIST: ____ . ANY NEW PROBLEMS WITH YOUR MEDICATIONS? NO . WHEN DID YOU LAST EAT? 07/19/17 0500 . WHEN DID YOU LAST DRINK? 07/19/17 0535 . WHAT DID YOU LAST DRINK? WATER . NAME OF PERSON DRIVING YOU HOME? SHERRI SANTOYO . DO YOU HAVE ANY OTHER QUESTIONS OR CONCERNS NO . VITAL SIGNS WT 159 LBS, HT 65 IN, BMI 26.46 INDEX, BP 120/80 MM HG, HR 65 /MIN, RR 18 /MIN, TEMP 98.4 F, OXYGEN SAT % 97%, SAFE IN ENV? (Y/N) Y, NA INITIALS AW 1126, REVIEWED BY: YULIYA. ASSESSMENTS INTERVERTEBRAL DISC DISORDER WITH RADICULOPATHY OF LUMBOSACRAL REGION - M51.17 (PRIMARY) PROCEDURES PRE PROCEDURE DIAGNOSIS LUMBOSACRAL DISC DISORDER WITH RADICULOPATHY POST PROCEDURE DIAGNOSIS LUMBOSACRAL DISC DISORDER WITH RADICULOPATHY PROCEDURE LUMBAR EPIDURAL STEROID INJECTION UNDER FLUOROSCOPIC GUIDANCE SURGEON DR. SHARON PALMER COOLING TOWER OPERATOR NONE ANESTHESIA LOCAL PRE PROCEDURE NOTE THE PATIENT HAS A HISTORY OF CHRONIC LOW BACK PAIN. I EVALUATE THE PATIENT AND REVIEWED THE CHART. I WENT OVER THE RISKS, ALTERNATIVES, AND BENEFITS ASSOCIATED WITH THIS PROCEDURE. THE PATIENT WOULD LIKE TO PROCEED AND GIVE CONSENT TO PERFORMED THE PROCEDURE. THE PATIENT DENIES UNEXPLAINABLE WEIGHT LOSS, FEVER, CHILLS, OR NEW CHANGES IN URINARY OR BOWEL CONTROL. I ALSO DISCUSSED THE CASE TODAY WITH DR. KEE DESCRIPTION OF PROCEDURE THE PATIENT WAS BROUGHT TO THE PROCEDURE ROOM AND PLACED IN THE PRONE POSITION. THE LUMBOSACRAL AREA WAS CLEANED WITH BETADINE SOLUTION AND DRAPED ASEPTICALLY. THE PROCEDURE WAS DONE UNDER STERILE CONDITIONS. I CHECKED LATERALITY AND THE LEVEL WHERE THE PROCEDURE WAS GOING TO BE PERFORMED WITH THE PATIENT AND THE SUPPORTING STAFF AT THE MOMENT OF THE TIME OUT IN THE PROCEDURE ROOM. UNDER FLUOROSCOPIC GUIDANCE, THE TARGET POINT WAS SELECTED AT THE INTERLAMINAR LEVEL OF L5-S1. LIDOCAINE WAS USED TO NUMB THE SKIN AND THE SUBCUTANEOUS TISSUE BELOW IT. EPIDURAL TUOHY NEEDLE, 17-GAUGE, WAS ADVANCED UNDER FLUOROSCOPIC GUIDANCE AND FOLLOWING PATIENT FEEDBACK UNTIL THE EPIDURAL SPACE WAS REACHED, 7 CM DEEP INTO THE SKIN BY THE LOSS OF RESISTANCE TECHNIQUE. ISOVUE M DYE 30%, 0.25 ML, WAS INJECTED SHOWING ADEQUATE SPREAD OF THE DYE. THEN, A SOLUTION OF 3 ML OF NORMAL SALINE WITH DEPO-MEDROL 60 MG WAS INJECTED SLOWLY FOLLOWING PATIENT FEEDBACK. THERE WAS NO EVIDENCE OF BLOOD, PARESTHESIA OR CEREBROSPINAL FLUID DURING THE PROCEDURE. THE PATIENT WAS SENT TO THE RECOVERY ROOM. THE PATIENT WAS MOVING THE EXTREMITIES AND DOING WELL. THERE WAS NO COMPLICATION DURING THE PROCEDURE. FLUOROSCOPY TIME WAS 11 SECONDS. POST PROCEDURE NOTE THE PATIENT WILL BE SEEN IN A FOLLOW UP IN THE NEXT FEW WEEKS. INSTRUCTIONS WERE GIVEN, QUESTIONS WERE ANSWERED, AND THE PATIENT EXPRESSED UNDERSTANDING AND AGREES WITH THE PLAN. I, RAZA CHIRINOS, DOCUMENTED THE ABOVE INFORMATION ACTING A SCRIBE FOR DR. PALMER. I HAVE REVIEWED THE ABOVE DOCUMENT, WRITTEN BY RAZA SHAMPINE SCRIBE AND I VERIFY THAT IT IS ACCURATE DIAGNOSTIC IMAGING [facility] FLUORO GUIDE SPINE INJECTION (PAIN)[id number] PROCEDURE CODES 35912 LUMBAR/SACRAL W/ IMAGING 6045F RADXPS IN END [id number] PXD DISPOSITION & COMMUNICATION FOLLOW UP 3 WEEKS ELECTRONICALLY SIGNED BY SHARON PALMER MD ON 07/19/2017 AT 09:06 PM EDT DISCLAIMER : THIS IS A VISIT SUMMARY EXTRACTED FROM THE [employer] CHART. IT IS NOT A COPY OF THE [employer] PROGRESS NOTE. EDWIN
== END ==
LOC: M PAIN 11:45
PROVIDERS: ATTEND Anesthesiology
DX: G89.29 Other chronic pain (principal); M51.17 Intervertebral disc disorders with radiculopathy, lumbosacral region; G47.33 Obstructive sleep apnea (adult) (pediatric); M81.0 Age-related osteoporosis without current pathological fracture; F32.9 Major depressive disorder, single episode, unspecified; N52.9 Male erectile dysfunction, unspecified; M85.80 Other specified disorders of bone density and structure, unspecified site; E29.1 Testicular hypofunction; Z88.0 Allergy status to penicillin; Z79.899 Other long term (current) drug therapy
CPT/HCPCS: 62323; J1030; Q9967

== ENCOUNTER → 2017-09-02 | Outpatient (CLI) | payer MEDICARE ==
[~2017-09-02] MED LIST changes: -ISOVUE-M 300 61% 15ML VIAL (Q9967) As Ordered ONE; -LIDOCAINE 1% SDV INJ 30 ML VIAL As Ordered ONE; -diazePAM 5 MG TAB As Ordered ONE; -methylPREDNISolone SUSP 40 MG/ML (DEPO-medrol) VIAL (J1030) As Ordered ONE; -oxyCODONE 5MG TAB As Ordered ONE
--- NOTE | 2017-09-19 00:32 | ECWPNPC ---
PATIENT NAME: JACKIE AMBROSE : 1965 GENDER: MALE VISIT DATE: 09/02/2017 DISCHARGE DATE: 09/02/17 1102 VISIT LOCKED DATE TIME: PHYSICIAN: SHARON PALMER RESOURCE: SHARON PALMER REASON FOR APPOINTMENT 1. LOW BACK PAIN HISTORY OF PRESENT ILLNESS HISTORY OF PRESENT ILLNESS: PAIN THE PATIENT DESCRIBES THE PAIN... 52 YEAR OLD MALE PATIENT WITH HISTORY OF CHRONIC LOW BACK PAIN. PATIENT DESCRIBES THE PAIN ACHING, TENDER, SORE, AND THROBBING WITH A PAIN SCORE OF 6/10. PATIENT RECEIVED A LUMBAR EPIDURAL ON 07/19/17 AND REPORTS HAVING OVER 50% RELIEF FROM THE PAIN FOR OVER 2 WEEKS FROM THE INJECTION BUT THE PAIN RETURNED AFTER THAT. PATIENT DOES NOT WANT TO USE NARCOTICS AT THIS TIME. PATIENT STATES THAT PHYSICAL THERAPY DID NOT AID THE PATIENT IN PAIN RELIEF IN THE PAST. PATIENT DENIES UNEXPLAINABLE WEIGHT LOSS, FEVER, CHILLS, NEW CHANGES ON HIS URINARY OR BOWEL CONTROL. FALL RISK SCREENING: SCREENING :NO FALLS IN THE PAST YEAR CURRENT MEDICATIONS TAKING COLACE 100 MG CAPSULE 1 CAPSULE NEEDED ORALLY BID TAKING SENNA 8.6 MG TABLET 2 TABLETS AT BEDTIME NEEDED ORALLY ONCE A DAY TAKING LEVOTHYROXINE SODIUM 125 MCG TABLET 1 TABLET ORALLY ONCE A DAY: CLARIFICATION LOWERED DOSE FURTHER TAKING ANDROGEL 20.25 MG/1.25GM (1.62%) GEL 1 APPLICATION TO AFFECTED AREA TRANSDERMAL ONCE A DAY TAKING VENLAFAXINE HCL ER 75 MG CAPSULE EXTENDED RELEASE 24 HOUR 1 CAPSULE WITH FOOD ORALLY ONCE A DAY TAKING ATIVAN 0.5 MG TABLET 1 TABLET NEEDED ORALLY EVERY 6 HRS NEEDED FOR ANXIETY MDD = 3 TAKING LEVITRA 2.5 MG TABLET 1 TABLET NEEDED WITHIN 24 HOURS ORALLY ONCE A DAY TAKING CLARITIN 10 MG TABLET 1 TABLET ORALLY ONCE A DAY TAKING FLUTICASONE PROPIONATE 50 MCG/ACT SUSPENSION 1 SPRAY IN EACH NOSTRIL NASALLY ONCE A DAY TAKING VITAMIN D3 2000 UNIT CAPSULE 1 CAPSULE ORALLY ONCE A DAY TAKING LYRICA 200 MG CAPSULE 1 CAPSULE ORALLY TWICE A DAY TAKING ATORVASTATIN CALCIUM 20 MG TABLET 1 TABLET ORALLY ONCE A DAY TAKING LUNESTA 2 MG TABLET 1 TABLET IMMEDIATELY BEFORE BEDTIME ORALLY ONCE A DAY TAKING MEDICAL ID BRACELET - MISCELLANEOUS DIRECTED NECKLACE DAILY DX: E27.4 TAKING ATORVASTATIN CALCIUM 20 MG TABLET 1 TAB ORALLY BEFORE BEDTIME TAKING LYRICA 200 MG CAPSULE TAKE ONE CAPSULE BY MOUTH THREE TIMES A DAY MAXIMUM DAILY DOSE = 3 TAKING ANDROGEL PUMP 20.25 MG/ACT (1.62%) GEL TO UNDER ARMS TRANSDERMAL ONCE A DAY MDD 2PUMPS TAKING SOLU-CORTEF 100 MG SOLUTION RECONSTITUTED DIRECTED INJECTION ACT-O-VIAL PRN ACUTE ADRENAL INSUFFICIENCY TAKING HYDROCORTISONE 10 MG TABLET 1 IN AM / /2 IN MID AFTERNOON/ 1/2 IN PM ORALLY TID TAKING ASPIR-81 81 MG TABLET DELAYED RELEASE 1 TABLET ORALLY ONCE A DAY TAKING CELEBREX 200 MG CAPSULE 1 CAPSULE WITH FOOD ORALLY ONCE A DAY TAKING CALCIUM 600 600 MG TABLET 1 TABLET ORALLY ONCE A DAY MEDICATION LIST REVIEWED AND RECONCILED WITH THE PATIENT PAST MEDICAL HISTORY 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 POZO EXCEPT FOR MEDIUM HIATAL HERNIA ERECTILE DYSFUNCTION DEPRESSION HISTORY OF PAROXYSMAL ATRIAL FIBRILLATION-AUGUST 04, 2010 PROBABLY SECONDARY TO NARCOTIC WITHDRAWAL-JULY 2010 RST WITHOUT REVERSIBILITY-DR. JEAN/AUGUST 2010 TTE NORMAL-DR. JEAN RIGHT CARPAL TUNNEL SYNDROME-SEPTEMBER 2010 NCS-MILD RIGHT MEDIAN NEUROPATHY AT THE WRIST WITHOUT RADICULOPATHY-SMITH LEUKOCYTOSIS, CHRONIC OSTEOPOROSIS LUMBAR DJD-MINIMAL BULGES L4-S1, BILATERAL L5/S1 NF NARROWING BY 10/2016 MRI JOCELYN, SEVERE-12/2016 HST GERARDO 23, SAO2 TO 81% ALLERGIES PENICILLIN (FOR ALLERGIES USE ONLY): HARD TO BREATHE, SKIN REDNESS: ALLERGY REVIEW OF SYSTEMS REVIEWED BY: PROVIDER: SHARON PALMER MD . CONSTITUTIONAL: ANY CHANGE IN YOUR MEDICAL CONDITION? NO . CHILLS NO . FEVER NO . INFECTION: DO YOU HAVE NEW INFECTIONS? NO . DO YOU HAVE HISTORY OF MRSA? NO . MUSCULOSKELETAL: ANY NEW PATTERNS OF PAIN OR NUMBNESS? NO . GASTROENTEROLOGY: ANY NEW CHANGE IN BOWEL CONTROL? NO . GENITOURINARY: ANY NEW CHANGE IN BLADDER CONTROL? NO . IS THERE A CHANCE YOU COULD BE ? NO . HEMATOLOGY/LYMPH: DO YOU TAKE ANY BLOOD THINNERS? (FOR EXAMPLE- COUMADIN, PLAVIX, AGGRENOX, PLATEL, PRADAXA, OR XARELTO) NO . WHEN WAS YOUR LAST DOSE? DATE: TIME: . NEUROLOGY: HAVE YOU FALLEN IN THE PAST 6 MONTHS? NO . ANY NEW EXTREMITY NUMBNESS OR WEAKNESS? NO . CARDIOLOGY: DO YOU HAVE A PACEMAKER OR DEFIBRILLATOR? NO . RESPIRATORY: HAVE YOU BEEN SICK IN THE PAST WEEK? NO . FEVER NO . FLU LIKE SYMPTOMS? NO . COUGH NO . INTEGUMENTARY: DO YOU HAVE ANY RASHES OR OPEN SORES? NO . ALLERGIC/IMMUNO: ARE YOU ALLERGIC TO SHELLFISH OR IV DYE? NO . ANY NEW ALLERGIES? NO . PSYCHIATRIC: DO YOU HAVE THOUGHTS OF HURTING YOURSELF OR SOMEONE ELSE? NO . ARE YOU ABUSED, NEGLECTED, OR IN AN UNSAFE ENVIRONMENT? NO . ENDOCRINOLOGY: ARE YOU DIABETIC? NO . OTHER: DO YOU NEED ANY PRESCRIPTIONS? NO . IF YES, PLEASE LIST: ____ . ANY NEW PROBLEMS WITH YOUR MEDICATIONS? NO . WHEN DID YOU LAST EAT? ____ . WHEN DID YOU LAST DRINK? ____ . WHAT DID YOU LAST DRINK? ____ . NAME OF PERSON DRIVING YOU HOME? ____ . DO YOU HAVE ANY OTHER QUESTIONS OR CONCERNS INJECTION WORKED ALMOST 3 WEEKS, AND HAS RETURNED WORSE THAN BEFORE INJECTION. . VITAL SIGNS WT 159 LBS, HT 65 IN, BMI 26.46 INDEX, BP 134/81 MM HG, HR 76 /MIN, RR 18 /MIN, TEMP 98.7 F, OXYGEN SAT % 98%, NA INITIALS SC 10:29, REVIEWED BY: RODGER. EXAMINATION : :PATIENT IS ALERT O X 3 AND COOPERATIVE. TENDERNESS IN THE LOWER BACK AND PARASPINAL MUSCLE GROUP. LIMPING FROM THE RIGHT LEG. RIGHT LEG WEAKER THEN THE LEFT AT EXTENSION AND FLEXION. MRI DONE ON 11/26/16 OF THE LUMBAR SPINE SHOWS MULTILEVEL DISC DEGENERATION ALONG WITH DISC BULGES AT L4-L5 AND L5-S1. ASSESSMENTS INTERVERTEBRAL DISC DISORDER WITH RADICULOPATHY OF LUMBAR REGION - M51.16 (PRIMARY) INTERVERTEBRAL DISC DISORDER WITH RADICULOPATHY OF LUMBOSACRAL REGION - M51.17 TREATMENT INTERVERTEBRAL DISC DISORDER WITH RADICULOPATHY OF LUMBAR REGION NOTES: WE DISCUSSED SEVERAL ISSUES WITH MR. AMBROSE'S PAIN MANAGEMENT CASE. AT THIS TIME THE PATIENT WILL CONTINUE WITH THE SAME MEDICATION REGIME BEFORE. DUE TO THE PATIENT GETTING EXCELLENT RELIEF FOR TWO WEEKS FROM THE INTERLAMINA LUMBAR EPIDURAL I WOULD LIKE TO REPEAT THE INJECTION. WE DISCUSSED THE RISKS, BENEFITS, AND ALTNERATIVES OF THE INJECTION AND THE PATIENT WOULD LIKE TO PROCEED AT THIS TIME. INSTRUCTIONS WERE GIVEN, QUESTIONS WERE ANSWERED, PATIENT REPORTS UNDERSTANDING AND AGREES WITH THE PLAN. I, RAZA CHIRINOS, DOCUMENTED THE ABOVE INFORMATION ACTING A SCRIBE FOR DR. PALMER. I HAVE REVIEWED THE ABOVE DOCUMENT, WRITTEN BY RAZA RIVEROIBOmar AND I VERIFY THAT IT IS ACCURATE. PREVENTIVE MEDICINE LUMBAR EPIDURAL STEROID INJECTION INFORMATION REVIEWED WITH PT. PROCEDURE CODES FA211 ESTABILISHED PATIENT [facility] CHARGE DISPOSITION & COMMUNICATION FOLLOW UP 3 WEEKS AFTER [facility] ELECTRONICALLY SIGNED BY SHARON PALMER MD ON 09/18/2017 AT 08:44 PM EST DISCLAIMER : THIS IS A VISIT SUMMARY EXTRACTED FROM THE [employer] CHART. IT IS NOT A COPY OF THE [employer] PROGRESS NOTE. EDWIN
== END ==
LOC: M PAIN 10:15
PROVIDERS: ATTEND Anesthesiology
DX: G89.29 Other chronic pain (principal); M51.16 Intervertebral disc disorders with radiculopathy, lumbar region; M51.17 Intervertebral disc disorders with radiculopathy, lumbosacral region; I48.91 Unspecified atrial fibrillation; E03.9 Hypothyroidism, unspecified; F32.9 Major depressive disorder, single episode, unspecified; E78.2 Mixed hyperlipidemia; E55.9 Vitamin D deficiency, unspecified; F51.01 Primary insomnia; F41.0 Panic disorder [episodic paroxysmal anxiety]; R40.0 Somnolence; G47.33 Obstructive sleep apnea (adult) (pediatric); E23.0 Hypopituitarism; Z88.0 Allergy status to penicillin; Z79.82 Long term (current) use of aspirin; Z79.899 Other long term (current) drug therapy

== ENCOUNTER → 2017-09-06 | Outpatient (CLI) | payer MEDICARE ==
[~2017-09-06] MED LIST changes: +ISOVUE-M 300 61% 15ML VIAL (Q9967) As Ordered ONE; +LIDOCAINE 1% SDV INJ 30 ML VIAL As Ordered ONE; +diazePAM 5 MG TAB As Ordered ONE; +methylPREDNISolone SUSP 40 MG/ML (DEPO-medrol) VIAL (J1030) As Ordered ONE
--- NOTE | 2017-09-06 13:39 | REP ---
Partial lumbar spine series: Three views. . History: Injection procedure for pain. 14 seconds of fluoroscopy time is reported. Findings: A sequence of three fluoroscopically obtained last image hold procedural spot radiographs of the lumbar spine document needle position and contrast injection associated with injection procedure. Signed by Korey Rodrigues MD 09/06/2017 01:30 P
--- NOTE | 2017-09-11 23:34 | ECWPNPC ---
PATIENT NAME: JACKIE AMBROSE : 1965 GENDER: MALE VISIT DATE: 09/06/2017 DISCHARGE DATE: 09/06/17 1248 VISIT LOCKED DATE TIME: PHYSICIAN: SHARON PALMER RESOURCE: SHARON PALMER REASON FOR APPOINTMENT 1. LESI HISTORY OF PRESENT ILLNESS HISTORY OF PRESENT ILLNESS: PAIN THE PATIENT DESCRIBES THE PAIN... FALL RISK SCREENING: SCREENING :NO FALLS IN THE PAST YEAR CURRENT MEDICATIONS TAKING COLACE 100 MG CAPSULE 1 CAPSULE NEEDED ORALLY BID, NOTES: NONE RECENT TAKING SENNA 8.6 MG TABLET 2 TABLETS AT BEDTIME NEEDED ORALLY ONCE A DAY, NOTES: NONE RECENT TAKING LEVOTHYROXINE SODIUM 125 MCG TABLET 1 TABLET ORALLY ONCE A DAY: CLARIFICATION LOWERED DOSE FURTHER, NOTES: 09/06 500 TAKING ANDROGEL 20.25 MG/1.25GM (1.62%) GEL 1 APPLICATION TO AFFECTED AREA TRANSDERMAL ONCE A DAY, NOTES: 09/06 800 TAKING VENLAFAXINE HCL ER 75 MG CAPSULE EXTENDED RELEASE 24 HOUR 1 CAPSULE WITH FOOD ORALLY ONCE A DAY, NOTES: 09/06 500 TAKING ATIVAN 0.5 MG TABLET 1 TABLET NEEDED ORALLY EVERY 6 HRS NEEDED FOR ANXIETY MDD = 3, NOTES: 09/06 530 TAKING CLARITIN 10 MG TABLET 1 TABLET ORALLY ONCE A DAY, NOTES: NONE RECENT TAKING VITAMIN D3 2000 UNIT CAPSULE 1 CAPSULE ORALLY ONCE A DAY, NOTES: 09/06 500 TAKING LYRICA 200 MG CAPSULE 1 CAPSULE ORALLY TWICE A DAY, NOTES: 09/06 500 TAKING ATORVASTATIN CALCIUM 20 MG TABLET 1 TABLET ORALLY ONCE A DAY, NOTES: 09/06 500 TAKING LUNESTA 2 MG TABLET 1 TABLET IMMEDIATELY BEFORE BEDTIME ORALLY ONCE A DAY, NOTES: 09/05 2100 TAKING SOLU-CORTEF 100 MG SOLUTION RECONSTITUTED DIRECTED INJECTION ACT-O-VIAL PRN ACUTE ADRENAL INSUFFICIENCY, NOTES: NONE RECENT TAKING HYDROCORTISONE 10 MG TABLET 1 IN AM / /2 IN MID AFTERNOON/ 12 IN PM ORALLY TID, NOTES: 09/06 500 TAKING ASPIR-81 81 MG TABLET DELAYED RELEASE 1 TABLET ORALLY ONCE A DAY, NOTES: 09/06 500 TAKING CELEBREX 200 MG CAPSULE 1 CAPSULE WITH FOOD ORALLY ONCE A DAY, NOTES: 09/04 TAKING CALCIUM 600 600 MG TABLET 1 TABLET ORALLY ONCE A DAY, NOTES: 09/06 500 DISCONTINUED LEVITRA 2.5 MG TABLET 1 TABLET NEEDED WITHIN 24 HOURS ORALLY ONCE A DAY DISCONTINUED FLUTICASONE PROPIONATE 50 MCG/ACT SUSPENSION 1 SPRAY IN EACH NOSTRIL NASALLY ONCE A DAY DISCONTINUED ATORVASTATIN CALCIUM 20 MG TABLET 1 TAB ORALLY BEFORE BEDTIME DISCONTINUED LYRICA 200 MG CAPSULE TAKE ONE CAPSULE BY MOUTH THREE TIMES A DAY MAXIMUM DAILY DOSE = 3 DISCONTINUED ANDROGEL PUMP 20.25 MG/ACT (1.62%) GEL TO UNDER ARMS TRANSDERMAL ONCE A DAY MDD 2PUMPS UNKNOWN MEDICAL ID BRACELET - MISCELLANEOUS DIRECTED NECKLACE DAILY DX: E27.4 MEDICATION LIST REVIEWED AND RECONCILED WITH THE PATIENT PAST MEDICAL HISTORY 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 POZO EXCEPT FOR MEDIUM HIATAL HERNIA ERECTILE DYSFUNCTION DEPRESSION HISTORY OF PAROXYSMAL ATRIAL FIBRILLATION-AUGUST 04, 2010 PROBABLY SECONDARY TO NARCOTIC WITHDRAWAL-JULY 2010 RST WITHOUT REVERSIBILITY-DR. JEAN/AUGUST 2010 TTE NORMAL-DR. JEAN RIGHT CARPAL TUNNEL SYNDROME-SEPTEMBER 2010 NCS-MILD RIGHT MEDIAN NEUROPATHY AT THE WRIST WITHOUT RADICULOPATHY-SMITH LEUKOCYTOSIS, CHRONIC OSTEOPOROSIS LUMBAR DJD-MINIMAL BULGES L4-S1, BILATERAL L5/S1 NF NARROWING BY 10/2016 MRI JOCELYN, SEVERE-12/2016 HST GERARDO 23, SAO2 TO 81% ALLERGIES PENICILLIN (FOR ALLERGIES USE ONLY): HARD TO BREATHE, SKIN REDNESS: ALLERGY SOCIAL HISTORY GENERAL: TOBACCO USE ARE YOU A:NONSMOKER ALCOHOL SCREENING POINTS0 INTERPRETATIONNEGATIVE RECREATIONAL DRUG USE DRUG USE?NO JUDAISM [id number] NONE LANGUAGE LANGUAGES SPOKEN:WOLOF LEARNING BARRIERS / SPECIAL NEEDS BARRIERS TO LEARNING?NO HEARING IMPAIRED?NO VISION IMPAIRED?NO COGNITIVELY IMPAIRED?NO READINESS TO LEARN?YES LEARNING PREFERENCES?YES :DEMONSTRATION/VERBAL INSTRUCTION LEARNING CAPABILITIES PRESENT?YES EMOTIONAL BARRIERS?NO SPECIAL DEVICES?NO DECORATING KILN OPERATOR NEEDED?NO PAIN CLINIC PFS, CLERGY, PUBLIC HEALTH REFERRALS PFS REFERRAL NEEDED?NO CLERGY REFERRAL NEEDED?NO PUBLIC HEALTH REFERRAL NEEDED?NO WAS THE PROVIDER NOTIFIED OF ANY PERTINENT INFO?YES HAS THE PATIENT BEEN EDUCATED REGARDING HIS/HER PLAN OF CARE?YES PLEASE DOCUMENT ANY ADDTIONAL DETAILS. LUMBAR EPIDURAL STEROID INJECTION HAS THE PATIENT BEEN EDUCATED REGARDING PAIN, THE RISK FOR PAIN, THE IMPORTANCE OF EFFECTIVE PAIN MANAGEMENT, AND THE PAIN ASSESSMENT PROCESS?YES REVIEWED BY: 09/06/17 1123 AD. PATIENT: ____. ADVANCE DIRECTIVES HEALTH CARE PROXY?NO WOULD YOU LIKE MORE INFORMATION?NO DO YOU HAVE A DNR?NO WOULD YOU LIKE MORE INFORMATION?NO LIVING WILL?NO WOULD YOU LIKE MORE INFORMATION?NO POWER OF SUPERVISOR TUMBLING AND ROLLING?NO WOULD YOU LIKE MORE INFORMATION?NO DOMESTIC VIOLENCE DO YOU FEEL SAFE IN YOUR ENVIRONMENT?YES REVIEW OF SYSTEMS REVIEWED BY: PROVIDER: . CONSTITUTIONAL: ANY CHANGE IN YOUR MEDICAL CONDITION? NO . CHILLS NO . FEVER NO . INFECTION: DO YOU HAVE NEW INFECTIONS? NO . DO YOU HAVE HISTORY OF MRSA? NO . MUSCULOSKELETAL: ANY NEW PATTERNS OF PAIN OR NUMBNESS? NO . GASTROENTEROLOGY: ANY NEW CHANGE IN BOWEL CONTROL? NO . GENITOURINARY: ANY NEW CHANGE IN BLADDER CONTROL? NO . IS THERE A CHANCE YOU COULD BE ? NO . HEMATOLOGY/LYMPH: DO YOU TAKE ANY BLOOD THINNERS? (FOR EXAMPLE- COUMADIN, PLAVIX, AGGRENOX, PLATEL, PRADAXA, OR XARELTO) NO . WHEN WAS YOUR LAST DOSE? DATE: TIME: . NEUROLOGY: HAVE YOU FALLEN IN THE PAST 6 MONTHS? NO . ANY NEW EXTREMITY NUMBNESS OR WEAKNESS? NO . CARDIOLOGY: DO YOU HAVE A PACEMAKER OR DEFIBRILLATOR? NO . RESPIRATORY: HAVE YOU BEEN SICK IN THE PAST WEEK? NO . FEVER NO . FLU LIKE SYMPTOMS? NO . COUGH NO . INTEGUMENTARY: DO YOU HAVE ANY RASHES OR OPEN SORES? NO . ALLERGIC/IMMUNO: ARE YOU ALLERGIC TO SHELLFISH OR IV DYE? NO . ANY NEW ALLERGIES? NO . PSYCHIATRIC: DO YOU HAVE THOUGHTS OF HURTING YOURSELF OR SOMEONE ELSE? NO . ARE YOU ABUSED, NEGLECTED, OR IN AN UNSAFE ENVIRONMENT? NO . ENDOCRINOLOGY: ARE YOU DIABETIC? NO . OTHER: DO YOU NEED ANY PRESCRIPTIONS? NO . IF YES, PLEASE LIST: ____ . ANY NEW PROBLEMS WITH YOUR MEDICATIONS? NO . WHEN DID YOU LAST EAT? 09/05 2000 . WHEN DID YOU LAST DRINK? 09/06 0600 . WHAT DID YOU LAST DRINK? WATER . NAME OF PERSON DRIVING YOU HOME? VILMA LUCERO . DO YOU HAVE ANY OTHER QUESTIONS OR CONCERNS NO HAD FLU VACCINE 2 WEEKS AGO-- DR. PALMER AWARE . VITAL SIGNS WT 159 LBS, HT 65 IN, BMI 26.46 INDEX, BP 124/76 MM HG, HR 61 /MIN, RR 18 /MIN, TEMP 98.4 F, OXYGEN SAT % 97%, SAFE IN ENV? (Y/N) Y, NA INITIALS SC 10:59, REVIEWED BY: AD. ASSESSMENTS INTERVERTEBRAL DISC DISORDER WITH RADICULOPATHY OF LUMBAR REGION - M51.16 (PRIMARY) PROCEDURES PRE PROCEDURE DIAGNOSIS LUMBAR DISC DISORDER WITH RADICULOPATHY POST PROCEDURE DIAGNOSIS LUMBAR DISC DISORDER WITH RADICULOPATHY PROCEDURE LUMBAR EPIDURAL STEROID INJECTION UNDER FLUOROSCOPIC GUIDANCE SURGEON DR. SHARON PALMER AUTO TIRE RECAPPER NONE ANESTHESIA LOCAL PRE PROCEDURE NOTE THE PATIENT HAS A HISTORY OF CHRONIC LOW BACK PAIN. I EVALUATE THE PATIENT AND REVIEWED THE CHART. I WENT OVER THE RISKS, ALTERNATIVES, AND BENEFITS ASSOCIATED WITH THIS PROCEDURE. THE PATIENT WOULD LIKE TO PROCEED AND GIVE CONSENT TO PERFORMED THE PROCEDURE. THE PATIENT DENIES UNEXPLAINABLE WEIGHT LOSS, FEVER, CHILLS, OR NEW CHANGES IN URINARY OR BOWEL CONTROL. DESCRIPTION OF PROCEDURE THE PATIENT WAS BROUGHT TO THE PROCEDURE ROOM AND PLACED IN THE PRONE POSITION. THE LUMBOSACRAL AREA WAS CLEANED WITH BETADINE SOLUTION AND DRAPED ASEPTICALLY. THE PROCEDURE WAS DONE UNDER STERILE CONDITIONS. I CHECKED LATERALITY AND THE LEVEL WHERE THE PROCEDURE WAS GOING TO BE PERFORMED WITH THE PATIENT AND THE SUPPORTING STAFF AT THE MOMENT OF THE TIME OUT IN THE PROCEDURE ROOM. UNDER FLUOROSCOPIC GUIDANCE, THE TARGET POINT WAS SELECTED AT THE INTERLAMINAR LEVEL OF L4-L5. LIDOCAINE WAS USED TO NUMB THE SKIN AND THE SUBCUTANEOUS TISSUE BELOW IT. EPIDURAL TUOHY NEEDLE, 17-GAUGE, WAS ADVANCED UNDER FLUOROSCOPIC GUIDANCE AND FOLLOWING PATIENT FEEDBACK UNTIL THE EPIDURAL SPACE WAS REACHED, 7 CM DEEP INTO THE SKIN BY THE LOSS OF RESISTANCE TECHNIQUE. ISOVUE M DYE 30%, 0.25 ML, WAS INJECTED SHOWING ADEQUATE SPREAD OF THE DYE. THEN, A SOLUTION OF 3 ML OF NORMAL SALINE WITH DEPO-MEDROL 60 MG WAS INJECTED SLOWLY FOLLOWING PATIENT FEEDBACK. THERE WAS NO EVIDENCE OF BLOOD, PARESTHESIA OR CEREBROSPINAL FLUID DURING THE PROCEDURE. THE PATIENT WAS SENT TO THE RECOVERY ROOM. THE PATIENT WAS MOVING THE EXTREMITIES AND DOING WELL. THERE WAS NO COMPLICATION DURING THE PROCEDURE. FLUOROSCOPY TIME WAS 14 SECONDS. POST PROCEDURE NOTE THE PATIENT WILL BE SEEN IN A FOLLOW UP IN THE NEXT FEW WEEKS. INSTRUCTIONS WERE GIVEN, QUESTIONS WERE ANSWERED, AND THE PATIENT EXPRESSED UNDERSTANDING AND AGREES WITH THE PLAN. I, RAZA CHIRINOS, DOCUMENTED THE ABOVE INFORMATION ACTING A SCRIBE FOR DR. PALMER. I HAVE REVIEWED THE ABOVE DOCUMENT, WRITTEN BY RAZA MELTON AND I VERIFY THAT IT IS ACCURATE DIAGNOSTIC IMAGING [facility] FLUORO GUIDE SPINE INJECTION (PAIN)[id number] PROCEDURE CODES 06675 LUMBAR/SACRAL W/ IMAGING 6045F RADXPS IN END [id number] PXD DISPOSITION & COMMUNICATION FOLLOW UP 2 WEEKS ELECTRONICALLY SIGNED BY SHARON PALMER MD ON 09/11/2017 AT 09:15 PM EST DISCLAIMER : THIS IS A VISIT SUMMARY EXTRACTED FROM THE [employer] CHART. IT IS NOT A COPY OF THE [employer] PROGRESS NOTE. EDWIN
== END ==
LOC: M PAIN 11:15
PROVIDERS: ATTEND Anesthesiology
DX: G89.29 Other chronic pain (principal); M51.16 Intervertebral disc disorders with radiculopathy, lumbar region; I48.91 Unspecified atrial fibrillation; E03.9 Hypothyroidism, unspecified; J30.9 Allergic rhinitis, unspecified; F32.9 Major depressive disorder, single episode, unspecified; E78.2 Mixed hyperlipidemia; M85.80 Other specified disorders of bone density and structure, unspecified site; E55.9 Vitamin D deficiency, unspecified; F51.01 Primary insomnia; F41.0 Panic disorder [episodic paroxysmal anxiety]; R40.0 Somnolence; G47.33 Obstructive sleep apnea (adult) (pediatric); Z88.0 Allergy status to penicillin; Z79.82 Long term (current) use of aspirin; Z79.899 Other long term (current) drug therapy
CPT/HCPCS: 62323; J1030; Q9967

== ENCOUNTER → 2017-09-30 | Outpatient (CLI) | payer MEDICARE ==
[~2017-09-30] MED LIST changes: -ISOVUE-M 300 61% 15ML VIAL (Q9967) As Ordered ONE; -LIDOCAINE 1% SDV INJ 30 ML VIAL As Ordered ONE; -diazePAM 5 MG TAB As Ordered ONE; -methylPREDNISolone SUSP 40 MG/ML (DEPO-medrol) VIAL (J1030) As Ordered ONE
--- NOTE | 2017-10-01 00:18 | ECWPNPC ---
PATIENT NAME: JACKIE AMBROSE : 1965 GENDER: MALE VISIT DATE: 09/30/2017 DISCHARGE DATE: 09/30/17 1111 VISIT LOCKED DATE TIME: PHYSICIAN: SHER SAM RESOURCE: SHER SAM REASON FOR APPOINTMENT 1. LOW BACK POST PROCEDURE HISTORY OF PRESENT ILLNESS HISTORY OF PRESENT ILLNESS: PAIN THE PATIENT DESCRIBES THE PAIN... FALL RISK SCREENING: SCREENING :NO FALLS IN THE PAST YEAR TODAY'S VISIT: NOTES: S/P INTRALAMINAR LUMBAR EPIDURAL COMPLETED ON 09/06/17. PAIN LEVEL PRIOR WAS 6-7/10, POST WAS 0-3 /10 UNTIL 09/29/17. NOTES SOME RETURN OF NUMBNESS AND TINGLING INTO THE RIGHT FOOT. NOTES THE PAIN STABBING, SHOOTING DOWN RIGHT LEG TO LEVEL OF FOOT. STRENGTH WAS IMPROVED IN RIGHT LEG AFTER THE INJECTION. . CURRENT MEDICATIONS TAKING COLACE 100 MG CAPSULE 1 CAPSULE NEEDED ORALLY BID, NOTES: NONE RECENT TAKING SENNA 8.6 MG TABLET 2 TABLETS AT BEDTIME NEEDED ORALLY ONCE A DAY, NOTES: NONE RECENT TAKING CLARITIN 10 MG TABLET 1 TABLET ORALLY ONCE A DAY, NOTES: NONE RECENT TAKING VITAMIN D3 2000 UNIT CAPSULE 1 CAPSULE ORALLY ONCE A DAY TAKING ATORVASTATIN CALCIUM 20 MG TABLET 1 TABLET ORALLY ONCE A DAY TAKING SOLU-CORTEF 100 MG SOLUTION RECONSTITUTED DIRECTED INJECTION ACT-O-VIAL PRN ACUTE ADRENAL INSUFFICIENCY, NOTES: NONE RECENT TAKING HYDROCORTISONE 10 MG TABLET 1 IN AM / 1/2 IN MID AFTERNOON/ 1/2 IN PM ORALLY TID TAKING ASPIR-81 81 MG TABLET DELAYED RELEASE 1 TABLET ORALLY ONCE A DAY TAKING CELEBREX 200 MG CAPSULE 1 CAPSULE WITH FOOD ORALLY ONCE A DAY TAKING CALCIUM 600 600 MG TABLET 1 TABLET ORALLY ONCE A DAY TAKING ATIVAN 0.5 MG TABLET 1 TABLET NEEDED ORALLY EVERY 6 HRS NEEDED FOR ANXIETY MDD = 3 TAKING ANDROGEL 20.25 MG/1.25GM (1.62%) GEL 1 APPLICATION TO AFFECTED AREA TRANSDERMAL ONCE A DAY TAKING LEVOTHYROXINE SODIUM 125 MCG TABLET 1 TABLET ORALLY ONCE A DAY: CLARIFICATION LOWERED DOSE FURTHER TAKING VENLAFAXINE HCL ER 75 MG CAPSULE EXTENDED RELEASE 24 HOUR 1 CAPSULE WITH FOOD ORALLY ONCE A DAY TAKING LYRICA 200 MG CAPSULE 1 CAPSULE ORALLY TWICE A DAY TAKING LUNESTA 2 MG TABLET 1 TABLET IMMEDIATELY BEFORE BEDTIME ORALLY ONCE A DAY UNKNOWN MEDICAL ID BRACELET - MISCELLANEOUS DIRECTED NECKLACE DAILY DX: E27.4 MEDICATION LIST REVIEWED AND RECONCILED WITH THE PATIENT PAST MEDICAL HISTORY 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 POZO EXCEPT FOR MEDIUM HIATAL HERNIA ERECTILE DYSFUNCTION DEPRESSION HISTORY OF PAROXYSMAL ATRIAL FIBRILLATION-AUGUST 04, 2010 PROBABLY SECONDARY TO NARCOTIC WITHDRAWAL-JULY 2010 RST WITHOUT REVERSIBILITY-DR. JEAN/AUGUST 2010 TTE NORMAL-DR. JEAN RIGHT CARPAL TUNNEL SYNDROME-SEPTEMBER 2010 NCS-MILD RIGHT MEDIAN NEUROPATHY AT THE WRIST WITHOUT RADICULOPATHY-SMITH LEUKOCYTOSIS, CHRONIC OSTEOPOROSIS LUMBAR DJD-MINIMAL BULGES L4-S1, BILATERAL L5/S1 NF NARROWING BY 10/2016 MRI JOCELYN, SEVERE-12/2016 HST GERARDO 23, SAO2 TO 81% ALLERGIES PENICILLIN (FOR ALLERGIES USE ONLY): HARD TO BREATHE, SKIN REDNESS: ALLERGY REVIEW OF SYSTEMS REVIEWED BY: PROVIDER: . CONSTITUTIONAL: ANY CHANGE IN YOUR MEDICAL CONDITION? YES, PAIN STARTED COMING BACK YESTERDAY . CHILLS NO . FEVER NO . INFECTION: DO YOU HAVE NEW INFECTIONS? NO . DO YOU HAVE HISTORY OF MRSA? NO . MUSCULOSKELETAL: ANY NEW PATTERNS OF PAIN OR NUMBNESS? NO . GASTROENTEROLOGY: ANY NEW CHANGE IN BOWEL CONTROL? NO . GENITOURINARY: ANY NEW CHANGE IN BLADDER CONTROL? NO . IS THERE A CHANCE YOU COULD BE ? NO . HEMATOLOGY/LYMPH: DO YOU TAKE ANY BLOOD THINNERS? (FOR EXAMPLE- COUMADIN, PLAVIX, AGGRENOX, PLATEL, PRADAXA, OR XARELTO) NO . WHEN WAS YOUR LAST DOSE? DATE: TIME: . NEUROLOGY: HAVE YOU FALLEN IN THE PAST 6 MONTHS? NO . ANY NEW EXTREMITY NUMBNESS OR WEAKNESS? NO . CARDIOLOGY: DO YOU HAVE A PACEMAKER OR DEFIBRILLATOR? NO . RESPIRATORY: HAVE YOU BEEN SICK IN THE PAST WEEK? NO . FEVER NO . FLU LIKE SYMPTOMS? NO . COUGH NO . INTEGUMENTARY: DO YOU HAVE ANY RASHES OR OPEN SORES? NO . ALLERGIC/IMMUNO: ARE YOU ALLERGIC TO SHELLFISH OR IV DYE? NO . ANY NEW ALLERGIES? NO . PSYCHIATRIC: DO YOU HAVE THOUGHTS OF HURTING YOURSELF OR SOMEONE ELSE? NO . ARE YOU ABUSED, NEGLECTED, OR IN AN UNSAFE ENVIRONMENT? NO . ENDOCRINOLOGY: ARE YOU DIABETIC? NO . OTHER: DO YOU NEED ANY PRESCRIPTIONS? NO . IF YES, PLEASE LIST: ____ . ANY NEW PROBLEMS WITH YOUR MEDICATIONS? NO . WHEN DID YOU LAST EAT? ____ . WHEN DID YOU LAST DRINK? ____ . WHAT DID YOU LAST DRINK? ____ . NAME OF PERSON DRIVING YOU HOME? ____ . DO YOU HAVE ANY OTHER QUESTIONS OR CONCERNS NO . VITAL SIGNS WT 159 LBS, HT 65 IN, BMI 26.46 INDEX, BP 120/84 MM HG, HR 65 /MIN, RR 16 /MIN, TEMP 98.1 F, OXYGEN SAT % 96%, NA INITIALS SC 10:31. EXAMINATION GENERAL EXAMINATION: MUSCULOSKELETAL:RIGHT LEG 4/5. POINT TENDERNESS OVER LSP AND RIGHT SIJ. ASSESSMENTS INTERVERTEBRAL DISC DISORDER WITH RADICULOPATHY OF LUMBAR REGION - M51.16 (PRIMARY) TREATMENT INTERVERTEBRAL DISC DISORDER WITH RADICULOPATHY OF LUMBAR REGION TRANSFORAMINAL LUMB SHER NARAYANAN 09/30/2017 10:56:36 AM > RIGHT L4-5 AND L5-S1 CLINICAL NOTES: OPTION FOR EPIDURAL INJECTIONS WERE DISCUSSED WITH THE PATIENT. FDA CONCERNS AND WARNING WERE REVIEWED INCLUDING THE RISK OF BLEEDING, RISK OF INFECTION, RISK OF INCREASED PAIN OR NEURALGIA, AND RISK OF PARALYSIS. PATIENT'S QUESTIONS WERE ANSWERED AND HE/SHE WISHES TO MOVE FORWARD WITH EPIDURAL INJECTION. PROCEDURE CODES FA211 ESTABILISHED PATIENT [facility] FAC[facility] CHARGE G8730 PAIN ASSESS POS TOOL F/U PLAN DOC G8427 DOC MEDS VERIFIED W/PT OR RE DISPOSITION & COMMUNICATION FOLLOW UP AFTER INJECTION (REASON: CHECK AUTH TRANSFORAMINAL RIGHT L4-5 AND L5-S1) ELECTRONICALLY SIGNED BY ARUN CARPIO ON 09/30/2017 AT 02:04 PM EST DISCLAIMER : THIS IS A VISIT SUMMARY EXTRACTED FROM THE [employer] CHART. IT IS NOT A COPY OF THE [employer] PROGRESS NOTE. EDWIN
== END ==
LOC: M PAIN 10:15
PROVIDERS: ATTEND Nurse Practitioner Family
DX: G89.29 Other chronic pain (principal); M51.16 Intervertebral disc disorders with radiculopathy, lumbar region; I48.91 Unspecified atrial fibrillation; E03.9 Hypothyroidism, unspecified; J30.9 Allergic rhinitis, unspecified; F32.9 Major depressive disorder, single episode, unspecified; E78.2 Mixed hyperlipidemia; E55.9 Vitamin D deficiency, unspecified; F51.01 Primary insomnia; F41.0 Panic disorder [episodic paroxysmal anxiety]; G47.33 Obstructive sleep apnea (adult) (pediatric); Z88.0 Allergy status to penicillin; Z79.52 Long term (current) use of systemic steroids; Z79.899 Other long term (current) drug therapy

== ENCOUNTER → 2017-11-14 | Outpatient (CLI) | payer MEDICARE ==
[~2017-11-14] MED LIST changes: -ANDROGEL TD; -ASPI1TAB PO; -ATIV1TAB10 PO; -ATOR1TAB21 PO; -BACL10TA5 PO; +BUPIVACAINE HCL 0.25% 30 ML VIAL As Ordered; -CALC600T31 PO; -CELE100C PO; -FLOM5CAP PO; -HYDR-3291 PO; -HYDR-3363 PO; +ISOVUE-M 300 61% 15ML VIAL (Q9967) As Ordered; -KETO10TAB PO; -LEVO125T41 PO; -LEVO150T OR; +LIDOCAINE 1% SDV INJ 30 ML VIAL As Ordered; -LUNE2TAB23 PO; -MORP30SU RE; -NEUR400C OR; -PERC5TAB8 OR; -PERCOCET PO; -PRED10TA2 PO; -PRED20TA OR; -PREG100CA PO; -PROM25TA PO; -VENL37.598 PO; -VENL75CA2 PO; -VITA200015 PO; -ZOFR4TAB3 PO; -ZOLO100T OR; -[UNRECOGNIZED DRUG - CODE] TOP; +dexameTHASONE 10 MG/1 ML VIAL PRES.FREE (J1100) As Ordered; +diazePAM 5 MG TAB As Ordered; +oxyCODONE 5MG TAB As Ordered
== END ==
LOC: M PAIN 13:00
DX: G89.29 Other chronic pain (principal); M51.16 Intervertebral disc disorders with radiculopathy, lumbar region; E23.0 Hypopituitarism; M85.80 Other specified disorders of bone density and structure, unspecified site; F32.9 Major depressive disorder, single episode, unspecified; D72.828 Other elevated white blood cell count; G47.33 Obstructive sleep apnea (adult) (pediatric); Z88.0 Allergy status to penicillin; Z79.899 Other long term (current) drug therapy
CPT/HCPCS: J1100

== ENCOUNTER → 2017-11-28 | Outpatient (REF) | payer MEDICARE ==
[2017-11-28 11:56] LABS: BASO # 0.1 10^3/uL (0.0-0.2); BASO % 0.8 % (0.0-1.0); EOS # 0.2 10^3/uL (0.0-0.50); EOS % 2.5 % (0.0-3.0); HEMATOCRIT 50.2 % (42.0-52.0); HEMOGLOBIN 17.3 g/dl (14.0-18.0); IMMATURE GRANULOCYTE % 0.2 % (0-0); LYMPH # 2.4 10^3/uL (1.5-4.5); LYMPH % 26.2 % (24.0-44.0); MEAN CORPUSCULAR HEMOGLOBIN 32.8 pg (27.0-33.0); MEAN CORPUSCULAR HGB CONC 34.5 g/dl (32.0-36.5); MEAN CORPUSCULAR VOLUME 95.3 fl (80.0-96.0); MONO # 0.8 10^3/uL (0.0-0.8); MONO % 8.6 % (0.0-5.0); NEUTROPHILS # 5.8 10^3/uL (1.8-7.7); NEUTROPHILS % 61.7 % (36.0-66.0); PLATELET COUNT, AUTOMATED 374 10^3/uL (150-450); RED BLOOD COUNT 5.27 10^6/uL (4.30-6.10); RED CELL DISTRIBUTION WIDTH 13.2 % (11.5-14.5); WHITE BLOOD COUNT 9.3 10^3/uL (4.0-10.0)
[2017-11-28 12:27] LABS: ALBUMIN 3.7 GM/DL (3.2-5.2); ALKALINE PHOSPHATASE 143 U/L (45-117); ALT/SGPT 30 U/L (12-78); ANION GAP 8 MEQ/L (8-16); AST/SGOT 35 U/L (7-37); BILIRUBIN,TOTAL 0.5 MG/DL (0.2-1.0); BLOOD UREA NITROGEN 11 MG/DL (7-18); CALCIUM LEVEL 9.4 MG/DL (8.5-10.1); CARBON DIOXIDE LEVEL 28 MEQ/L (21-32); CHLORIDE LEVEL 105 MEQ/L (98-107); CREATININE FOR GFR 0.99 MG/DL (0.70-1.30); FREE T4 0.87 NG/DL (0.76-1.46); GLOMERULAR FILTRATION RATE > 60.0 (>56); GLUCOSE, FASTING 85 MG/DL (70-100); POTASSIUM SERUM 4.6 MEQ/L (3.5-5.1); SODIUM LEVEL 141 MEQ/L (136-145); TOTAL PROTEIN 7.4 GM/DL (6.4-8.2); URIC ACID 6.4 MG/DL (3.5-7.2)
[2017-11-28 12:29] LABS: TOTAL 25(OH) VITAMIN D 68.4 NG/ML (30.0-100.0)
[2017-11-28 12:31] LABS: PTH INTACT 15.7 PG/ML (14.0-72.0); TOTAL T3 102.6 NG/DL (60.0-181.0)
[2017-12-01 00:06] LABS: TESTOSTERONE FREE (DIRECT) 7.5 pg/mL (7.2-24.0)
== END ==
LOC: M SFHCPLAZ 09:23
DX: E29.1 Testicular hypofunction (principal); E23.0 Hypopituitarism; N40.1 Benign prostatic hyperplasia with lower urinary tract symptoms; E55.9 Vitamin D deficiency, unspecified; N20.0 Calculus of kidney
CPT/HCPCS: 84403

== ENCOUNTER → 2018-01-17 | Outpatient (CLI) | payer MEDICARE | LOC: M SMT 09:27 | DX: M19.031 Primary osteoarthritis, right wrist (principal) | CPT/HCPCS: 73130 ==

== ENCOUNTER → 2018-01-30 | Outpatient (REF) | payer MEDICARE ==
[2018-01-30 17:39] LABS: BASO # 0.1 10^3/uL (0.0-0.2); BASO % 0.9 % (0.0-1.0); EOS # 0.1 10^3/uL (0.0-0.50); EOS % 1.2 % (0.0-3.0); HEMOGLOBIN 16.1 g/dl (13.5-17.5); IMMATURE GRANULOCYTE % 0.2 % (0-3.0); LYMPH # 2.5 10^3/uL (1.5-4.5); LYMPH % 27.5 % (24.0-44.0); MEAN CORPUSCULAR HEMOGLOBIN 32.2 pg (27.0-33.0); MEAN CORPUSCULAR HGB CONC 34.3 g/dl (32.0-36.5); MONO # 0.7 10^3/uL (0.0-0.8); MONO % 7.4 % (0.0-5.0); NEUTROPHILS # 5.8 10^3/uL (1.8-7.7); NEUTROPHILS % 62.8 % (36.0-66.0); PLATELET COUNT, AUTOMATED 313 10^3/uL (150-450); RED CELL DISTRIBUTION WIDTH 12.9 % (11.5-14.5); RETIC HEMOGLOBIN EQUIVALENT 37.1 pg (24-36); RETICULOCYTE % 0.9 % (0.5-1.5); WHITE BLOOD COUNT 9.2 10^3/uL (4.0-10.0)
[2018-01-30 18:16] LABS: ALBUMIN 3.4 GM/DL (3.2-5.2); ALBUMIN/GLOBULIN RATIO 0.94 (1.00-1.93); ALKALINE PHOSPHATASE 125 U/L (45-117); ALT/SGPT 19 U/L (12-78); ANION GAP 6 MEQ/L (8-16); AST/SGOT 23 U/L (7-37); BILIRUBIN,TOTAL 0.4 MG/DL (0.2-1.0); BLOOD UREA NITROGEN 9 MG/DL (7-18); C REACTIVE PROTEIN QUANTITATIV 0.49 MG/DL (0.00-0.30); CALCIUM LEVEL 8.6 MG/DL (8.5-10.1); CARBON DIOXIDE LEVEL 28 MEQ/L (21-32); CHLORIDE LEVEL 106 MEQ/L (98-107); CHOLESTEROL LEVEL 192 MG/DL (<200); CHOLESTEROL RISK RATIO 3.368 (<5); CPK CREATINE PHOSPHOKINASE 176 U/L (39-308); CREATININE FOR GFR 1.06 MG/DL (0.70-1.30); GLOMERULAR FILTRATION RATE > 60.0 (>56); GLUCOSE, FASTING 95 MG/DL (70-100); HDL CHOLESTEROL 57 MG/DL (>40); LDL CHOLESTEROL 104.8 MG/DL (<100); NON-HDL-C 135 MG/DL; POTASSIUM SERUM 4.3 MEQ/L (3.5-5.1); PSA SCREENING 3.16 NG/ML (< 4.0); SODIUM LEVEL 140 MEQ/L (136-145); TRIGLYCERIDES LEVEL 151 MG/DL (<150)
[2018-01-30 18:22] LABS: PTH INTACT 30.2 PG/ML (18.5-88.0); TOTAL 25(OH) VITAMIN D 89.6 NG/ML (30.0-100.0); VITAMIN B12 LEVEL 425 PG/ML (247-911)
[2018-01-31 09:56] LABS: ALPHA FETOPROTEIN TUMOR QUANT 1.9 NG/ML (<8.1)
== END ==
LOC: M SFHCPLAZ 13:18
DX: E23.0 Hypopituitarism (principal); B18.2 Chronic viral hepatitis C; Z79.899 Other long term (current) drug therapy
CPT/HCPCS: 82550

== ENCOUNTER → 2018-02-10 | Outpatient (REF) | payer MEDICARE ==
[2018-02-10 13:22] LABS: C REACTIVE PROTEIN QUANTITATIV < 0.30 MG/DL (0.00-0.30)
[2018-02-10 13:37] LABS: ERYTHROCYTE SEDIMENTATION RATE 3 mm/hr (0-20)
== END ==
LOC: M SFHCPLAZ 10:53
DX: M19.049 Primary osteoarthritis, unspecified hand (principal)
CPT/HCPCS: 86140

== ENCOUNTER 2018-03-28 13:33 | Emergency (ER) | payer MEDICARE ==
[2018-03-28 14:34] LABS: VENOUS BASE EXCESS 3.9 (-2.0-2.0); VENOUS HCO3 29.4 MEQ/L (23.0-27.0); VENOUS O2 SATURATION 85.8 % (60.0-80.0); VENOUS PARTIAL PRESSURE CO2 46.4 mmHg (38.0-50.0); VENOUS PARTIAL PRESSURE O2 43.5 mmHg (30.0-50.0); VENOUS STANDARD HCO3 27.6 MEQ/L; VENOUS TOTAL CO2 30.8 MEQ/L (24.0-28.0)
[2018-03-28 14:41] LABS: BASO # 0.1 10^3/uL (0.0-0.2); BASO % 0.9 % (0.0-1.0); EOS # 0.1 10^3/uL (0.0-0.50); EOS % 1.1 % (0.0-3.0); HEMATOCRIT 48.8 % (42.0-52.0); HEMOGLOBIN 17.4 g/dl (13.5-17.5); IMMATURE GRANULOCYTE % 0.2 % (0-3.0); LYMPH % 25.3 % (24.0-44.0); MEAN CORPUSCULAR HEMOGLOBIN 32.7 pg (27.0-33.0); MEAN CORPUSCULAR HGB CONC 35.7 g/dl (32.0-36.5); MEAN CORPUSCULAR VOLUME 91.7 fl (80.0-96.0); MONO # 0.9 10^3/uL (0.0-0.8); MONO % 11.6 % (0.0-5.0); NEUTROPHILS # 4.9 10^3/uL (1.8-7.7); NEUTROPHILS % 60.9 % (36.0-66.0); PLATELET COUNT, AUTOMATED 301 10^3/uL (150-450); RED BLOOD COUNT 5.32 10^6/uL (4.30-6.10); RED CELL DISTRIBUTION WIDTH 12.8 % (11.5-14.5)
[2018-03-28 14:54] LABS: AMMONIA 33 uMOL/L (<32)
[2018-03-28 14:59] LABS: OSMOLALITY SERUM 289 MOSM/KG (275-295)
[2018-03-28 15:18] LABS: ACETAMINOPHEN LEVEL < 2.0 UG/ML (10.0-30.0); ALBUMIN 4.3 GM/DL (3.2-5.2); ALKALINE PHOSPHATASE 116 U/L (45-117); ALT/SGPT 32 U/L (12-78); ANION GAP 7 MEQ/L (8-16); AST/SGOT 30 U/L (7-37); BILIRUBIN,DIRECT 0.2 MG/DL (0.0-0.2); BILIRUBIN,TOTAL 0.7 MG/DL (0.2-1.0); BLOOD UREA NITROGEN 18 MG/DL (7-18); CALCIUM LEVEL 8.9 MG/DL (8.5-10.1); CARBON DIOXIDE LEVEL 28 MEQ/L (21-32); CHLORIDE LEVEL 104 MEQ/L (98-107); CPK CREATINE PHOSPHOKINASE 211 U/L (39-308); ETHYL ALCOHOL (ETHANOL) < 0.003 % (0.000-0.010); GLOMERULAR FILTRATION RATE > 60.0 (>56); GLUCOSE, FASTING 80 MG/DL (70-100); SODIUM LEVEL 139 MEQ/L (136-145); TROPONIN I < 0.02 NG/ML (< 0.10)
[2018-03-28 15:32] LABS: ALBUMIN/GLOBULIN RATIO 1.26 (1.00-1.93); CK-MB VALUE MASS 4.4 NG/ML (<3.6); KETONE, URINE AUTO RFX TRACE mg/dL (NEGATIVE); LEUKOCYTE ESTERASE UR AUTO RFX NEGATIVE (NEGATIVE); MB/CK RELATIVE INDEX 2.08 (< OR =4); MUCUS, URINE RFX SMALL (NEGATIVE); NITRITE, URINE AUTO RFX NEGATIVE (NEGATIVE); RBC, URINE AUTO RFX 1 /HPF (0-3); SPECIFIC GRAVITY UR AUTO RFX 1.017 (1.002-1.035); SQUAM EPITHELIAL CELL UR AURFX 0 /HPF (0-6); TOTAL PROTEIN 7.7 GM/DL (6.4-8.2); WBC, URINE AUTO RFX 2 /HPF (0-3)
[2018-03-28] MEDS: LORazepam 2 MG/ML VIAL (J2060) IV (15:38)
[2018-03-28 15:47] LABS: AMPHETAMINES LEVEL URINE NEGATIVE (NEGATIVE); BARBITURATES URINE NEGATIVE (NEGATIVE); BENZODIAZEPINES URINE NEGATIVE (NEGATIVE); CANNABINOIDS URINE NEGATIVE (NEGATIVE); COCAINE METABOLITE URINE NEGATIVE (NEGATIVE); METHADONE URINE NEGATIVE (NEGATIVE); OPIATES URINE NEGATIVE (NEGATIVE); PHENCYCLIDINE URINE NEGATIVE (NEGATIVE)
== END 2018-03-28 16:49 | disposition home or self-care (01) ==
LOC: M ED 13:33
DX: F33.9 Major depressive disorder, recurrent, unspecified (principal); E03.9 Hypothyroidism, unspecified; Z79.899 Other long term (current) drug therapy; Z88.0 Allergy status to penicillin; Z88.8 Allergy status to other drugs, medicaments and biological substances
CPT/HCPCS: J2060

== ENCOUNTER → 2018-05-19 | Outpatient (REF) | payer MEDICARE ==
[2018-05-19 15:53] LABS: BASO # 0.1 10^3/uL (0.0-0.2); BASO % 0.8 % (0.0-1.0); EOS # 0.1 10^3/uL (0.0-0.50); EOS % 0.8 % (0.0-3.0); HEMATOCRIT 48.9 % (42.0-52.0); IMMATURE GRANULOCYTE % 0.4 % (0-3.0); LYMPH # 2.3 10^3/uL (1.5-4.5); MEAN CORPUSCULAR HEMOGLOBIN 33.3 pg (27.0-33.0); MEAN CORPUSCULAR HGB CONC 34.8 g/dl (32.0-36.5); MEAN CORPUSCULAR VOLUME 95.7 fl (80.0-96.0); MONO # 0.8 10^3/uL (0.0-0.8); MONO % 10.6 % (0.0-5.0); NEUTROPHILS # 3.9 10^3/uL (1.8-7.7); NEUTROPHILS % 55.4 % (36.0-66.0); PLATELET COUNT, AUTOMATED 295 10^3/uL (150-450); RED BLOOD COUNT 5.11 10^6/uL (4.30-6.10); RED CELL DISTRIBUTION WIDTH 12.7 % (11.5-14.5); WHITE BLOOD COUNT 7.1 10^3/uL (4.0-10.0)
[2018-05-19 16:16] LABS: ALBUMIN 3.9 GM/DL (3.2-5.2); ALKALINE PHOSPHATASE 141 U/L (45-117); ALT/SGPT 40 U/L (12-78); ANION GAP 4 MEQ/L (8-16); AST/SGOT 33 U/L (7-37); BILIRUBIN,TOTAL 0.4 MG/DL (0.2-1.0); BLOOD UREA NITROGEN 19 MG/DL (7-18); CALCIUM LEVEL 8.8 MG/DL (8.5-10.1); CARBON DIOXIDE LEVEL 31 MEQ/L (21-32); CHLORIDE LEVEL 107 MEQ/L (98-107); FREE T4 0.82 NG/DL (0.76-1.46); GLOMERULAR FILTRATION RATE > 60.0 (>56); GLUCOSE, FASTING 82 MG/DL (70-100); MAGNESIUM LEVEL 1.9 MG/DL (1.8-2.4); POTASSIUM SERUM 4.6 MEQ/L (3.5-5.1); PROSTATIC SPECIFIC AG MONITOR 3.65 NG/ML (< 4.0); SODIUM LEVEL 142 MEQ/L (136-145); TOTAL PROTEIN 7.8 GM/DL (6.4-8.2)
[2018-05-19 16:20] LABS: TOTAL 25(OH) VITAMIN D 109.9 NG/ML (30.0-100.0)
[2018-05-19 16:21] LABS: PROLACTIN 8.6 NG/ML (2.1-17.7)
[2018-05-23 00:07] LABS: TESTOSTERONE FREE (DIRECT) 4.2 pg/mL (7.2-24.0)
== END ==
LOC: M SFHCPLAZ 15:01
DX: E55.9 Vitamin D deficiency, unspecified (principal); E03.9 Hypothyroidism, unspecified; D75.89 Other specified diseases of blood and blood-forming organs; F51.01 Primary insomnia; N40.1 Benign prostatic hyperplasia with lower urinary tract symptoms; Z79.899 Other long term (current) drug therapy
CPT/HCPCS: 83735

== ENCOUNTER → 2018-06-21 | Outpatient (REF) | payer MEDICARE | LOC: M SFHCPLAZ 15:40 | DX: Z20.5 Contact with and (suspected) exposure to viral hepatitis (principal); Z20.2 Contact with and (suspected) exposure to infections with a predominantly sexual mode of transmission; Z11.3 Encounter for screening for infections with a predominantly sexual mode of transmission | CPT/HCPCS: 86803 ==

== ENCOUNTER → 2018-08-23 | Outpatient (CLI) | payer MEDICARE | LOC: M RAD 14:43 | DX: M71.031 Abscess of bursa, right wrist (principal); M25.441 Effusion, right hand; M19.041 Primary osteoarthritis, right hand | CPT/HCPCS: 73218 ==

== ENCOUNTER → 2018-09-14 | Outpatient (CLI) | payer MEDICARE | LOC: M EKG 10:08 | DX: M25.531 Pain in right wrist (principal) | CPT/HCPCS: 93005 ==

== ENCOUNTER → 2018-09-28 | Outpatient (REF) | payer MEDICARE ==
[2018-09-28 15:49] LABS: BASO # 0.1 10^3/uL (0.0-0.2); BASO % 1.1 % (0.0-1.0); EOS # 0.1 10^3/uL (0.0-0.50); EOS % 1.4 % (0.0-3.0); HEMATOCRIT 48.3 % (42.0-52.0); HEMOGLOBIN 16.8 g/dl (13.5-17.5); IMMATURE GRANULOCYTE % 0.2 % (0-3.0); LYMPH # 2.7 10^3/uL (1.5-4.5); MEAN CORPUSCULAR HEMOGLOBIN 32.8 pg (27.0-33.0); MEAN CORPUSCULAR HGB CONC 34.8 g/dl (32.0-36.5); MEAN CORPUSCULAR VOLUME 94.3 fl (80.0-96.0); MONO # 0.7 10^3/uL (0.0-0.8); MONO % 10.7 % (0.0-5.0); NEUTROPHILS % 45.6 % (36.0-66.0); PLATELET COUNT, AUTOMATED 319 10^3/uL (150-450); RED BLOOD COUNT 5.12 10^6/uL (4.30-6.10); RED CELL DISTRIBUTION WIDTH 12.8 % (11.5-14.5); WHITE BLOOD COUNT 6.5 10^3/uL (4.0-10.0)
[2018-09-28 16:00] LABS: ALBUMIN/GLOBULIN RATIO 1.14 (1.00-1.93); ALKALINE PHOSPHATASE 131 U/L (45-117); ALT/SGPT 29 U/L (12-78); ANION GAP 11 MEQ/L (8-16); AST/SGOT 30 U/L (7-37); BILIRUBIN,TOTAL 0.4 MG/DL (0.2-1.0); BLOOD UREA NITROGEN 9 MG/DL (7-18); CALCIUM LEVEL 8.8 MG/DL (8.5-10.1); CARBON DIOXIDE LEVEL 25 MEQ/L (21-32); CHLORIDE LEVEL 105 MEQ/L (98-107); CREATININE FOR GFR 0.92 MG/DL (0.70-1.30); FREE T4 1.07 NG/DL (0.76-1.46); GLOMERULAR FILTRATION RATE > 60.0 (>56); GLUCOSE, FASTING 63 MG/DL (70-100); INR 0.88; POTASSIUM SERUM 3.9 MEQ/L (3.5-5.1); PROTHROMBIN TIME 12.1 SECONDS (12.1-14.4); PSA SCREENING 5.1 NG/ML (< 4.0); SODIUM LEVEL 141 MEQ/L (136-145); TOTAL PROTEIN 7.5 GM/DL (6.4-8.2)
[2018-09-28 16:01] LABS: PARTIAL THROMBOPLASTIN TIME 34.4 SECONDS (25.4-37.6)
[2018-09-28 16:07] LABS: PTH INTACT 43.4 PG/ML (18.5-88.0); TOTAL 25(OH) VITAMIN D 80.6 NG/ML (30.0-100.0); VITAMIN B12 LEVEL 754 PG/ML (247-911)
[2018-09-29 11:48] LABS: ALBUMIN 4.22 GM/DL (3.29-5.55); ALBUMIN % 56.2 % (55.8-66.1); ALPHA-1-GLOBULIN % 4.6 % (2.9-4.9); ALPHA-1-GLOBULINS 0.35 GM/DL (0.17-0.41); ALPHA-2-GLOBULINS % 10.6 % (7.1-11.8); BETA-1-GLOBULINS % 6.7 % (4.7-7.2); BETA-2-GLOBULINS 0.48 GM/DL (0.19-0.55); BETA-2-GLOBULINS % 6.4 % (3.2-6.5); GAMMA GLOBULIN % 15.5 % (11.1-18.8); GAMMA GLOBULINS 1.16 GM/DL (0.65-1.58)
[2018-10-01 00:06] LABS: TESTOSTERONE FREE (DIRECT) 20.9 pg/mL (7.2-24.0)
== END ==
LOC: M SFHCPLAZ 13:26
DX: Z01.818 Encounter for other preprocedural examination (principal); E03.9 Hypothyroidism, unspecified; D75.89 Other specified diseases of blood and blood-forming organs; E78.2 Mixed hyperlipidemia; Z12.5 Encounter for screening for malignant neoplasm of prostate; E55.9 Vitamin D deficiency, unspecified; F51.01 Primary insomnia; G89.29 Other chronic pain; Z23 Encounter for immunization
CPT/HCPCS: 84165

== ENCOUNTER → 2019-01-22 | Outpatient (REF) | payer MEDICARE ==
[~2019-01-22] MED LIST changes: +ANDROGEL TD; +ASPI81TA26 PO; +ATIV1TAB10 PO; +ATOR1TAB21 PO; +BACL10TA8 PO; -BUPIVACAINE HCL 0.25% 30 ML VIAL As Ordered; +CALC600T31 PO; +CELE100C PO; +CELE1CAP9; +FLOM0.4C39 PO; +HYDR-3363 PO; +HYDR-4513 PO; -ISOVUE-M 300 61% 15ML VIAL (Q9967) As Ordered; +KETO10TAB PO; +LEVO125T41 PO; +LEVO150T OR; -LIDOCAINE 1% SDV INJ 30 ML VIAL As Ordered; +LUNE2TAB23 PO; +MORP30SU RE; +NEUR400C OR; +PERC5TAB8 OR; +PERCOCET PO; +PRED10TA2 PO; +PRED20TA OR; +PREG100CA PO; +PROM25TA12 PO; +VENL37.598 PO; +VENL75CA2 PO; +VENL75CA47; +VITA200015 PO; +ZOFR4TAB14 PO; +ZOLO100T OR; +[UNRECOGNIZED DRUG - CODE] TOP; -dexameTHASONE 10 MG/1 ML VIAL PRES.FREE (J1100) As Ordered; -diazePAM 5 MG TAB As Ordered; -oxyCODONE 5MG TAB As Ordered
[2019-01-22 17:16] LABS: APPEARANCE, URINE CLEAR (CLEAR); BACTERIA, URINE AUTO NEGATIVE (NEGATIVE); BILIRUBIN, URINE AUTO NEGATIVE (NEGATIVE); BLOOD, URINE BLOOD NEGATIVE (NEGATIVE); COLOR, URINE YELLOW (YELLOW); GLUCOSE, URINE (UA) AUTO NEGATIVE (NEGATIVE); KETONE, URINE AUTO NEGATIVE (NEGATIVE); LEUKOCYTE ESTERASE, URINE AUTO NEGATIVE (NEGATIVE); NITRITE, URINE AUTO NEGATIVE (NEGATIVE); PROTEIN, URINE AUTO NEGATIVE (NEGATIVE); RBC, URINE AUTO 0 /HPF (0-3); SPECIFIC GRAVITY URINE AUTO 1.005 (1.002-1.035); SQUAMOUS EPITHELIAL CELL UR AU 0 /HPF (0-6); UROBILINOGEN, URINE AUTO 0.2 mg/dL (0.0-2.0); WBC, URINE AUTO 1 /HPF (0-3)
== END ==
LOC: M SFHCPLAZ 15:40
PROVIDERS: ATTEND Physician Assistant Medical
DX: R35.0 Frequency of micturition (principal)
CPT/HCPCS: 51798; 81001; 87086; G0463

== ENCOUNTER → 2019-01-24 | Outpatient (REF) | payer MEDICARE ==
[~2019-01-24] MED LIST changes: +ASPI1TAB PO; -ASPI81TA26 PO; +HYDR-3291 PO; -HYDR-4513 PO
[2019-01-24 16:27] LABS: ALBUMIN 3.9 GM/DL (3.2-5.2); ALT/SGPT 25 U/L (12-78); BILIRUBIN,TOTAL 0.4 MG/DL (0.2-1.0); BLOOD UREA NITROGEN 13 MG/DL (7-18); C REACTIVE PROTEIN QUANTITATIV 0.56 MG/DL (0.00-0.30); CALCIUM LEVEL 8.6 MG/DL (8.5-10.1); CARBON DIOXIDE LEVEL 28 MEQ/L (21-32); CHLORIDE LEVEL 104 MEQ/L (98-107); CHOLESTEROL LEVEL 167 MG/DL (<200); CPK CREATINE PHOSPHOKINASE 151 U/L (39-308); CREATININE FOR GFR 1.04 MG/DL (0.70-1.30); GLOMERULAR FILTRATION RATE > 60.0 (>56); GLUCOSE, FASTING 107 MG/DL (70-100); HDL CHOLESTEROL 66 MG/DL (>40); LDL CHOLESTEROL 68 MG/DL (<100); NON-HDL-C 101 MG/DL; POTASSIUM SERUM 4.1 MEQ/L (3.5-5.1); SODIUM LEVEL 139 MEQ/L (136-145); TOTAL PROTEIN 7.2 GM/DL (6.4-8.2); TRIGLYCERIDES LEVEL 163 MG/DL (<150)
[2019-01-24 16:33] LABS: BASO # 0.1 10^3/uL (0.0-0.2); BASO % 1.1 % (0.0-1.0); EOS % 0.5 % (0.0-3.0); HEMATOCRIT 47.2 % (42.0-52.0); HEMOGLOBIN 16.3 g/dl (13.5-17.5); LYMPH # 2.1 10^3/uL (1.5-4.5); LYMPH % 26.9 % (24.0-44.0); MEAN CORPUSCULAR HEMOGLOBIN 32.1 pg (27.0-33.0); MEAN CORPUSCULAR HGB CONC 34.5 g/dl (32.0-36.5); MEAN CORPUSCULAR VOLUME 93.1 fl (80.0-96.0); MONO # 0.7 10^3/uL (0.0-0.8); MONO % 8.9 % (0.0-5.0); NEUTROPHILS # 4.7 10^3/uL (1.8-7.7); NEUTROPHILS % 62.3 % (36.0-66.0); PLATELET COUNT, AUTOMATED 275 10^3/uL (150-450); RED BLOOD COUNT 5.07 10^6/uL (4.30-6.10); WHITE BLOOD COUNT 7.6 10^3/uL (4.0-10.0)
[2019-01-24 16:36] LABS: HEMOGLOBIN A1c 5.6 %
[2019-01-27 00:07] LABS: TESTOSTERONE FREE (DIRECT) 3.4 pg/mL (7.2-24.0)
== END ==
LOC: M SFHCPLAZ 13:16
PROVIDERS: ATTEND Physician Assistant Medical
DX: N52.9 Male erectile dysfunction, unspecified (principal); R35.0 Frequency of micturition; E23.0 Hypopituitarism; Z79.899 Other long term (current) drug therapy
CPT/HCPCS: 36415; 80053; 80061; 82550; 83036; 84402; 84403; 85025; 86140; G0103

== ENCOUNTER → 2019-01-29 | Outpatient (REF) | payer MEDICARE ==
[~2019-01-29] MED LIST changes: -ASPI1TAB PO; +ASPI81TA26 PO; -HYDR-3291 PO; +HYDR-4513 PO
[2019-02-03 00:08] LABS: URINE BUPRENORPHINE Negative ng/mL (Cutoff=10)
== END ==
LOC: M SFHCPLAZ 12:49
PROVIDERS: ATTEND Nurse Practitioner Family
DX: F11.99 Opioid use, unspecified with unspecified opioid-induced disorder (principal); F32.9 Major depressive disorder, single episode, unspecified; Z79.899 Other long term (current) drug therapy
CPT/HCPCS: 80307; G0463

== ENCOUNTER → 2019-01-30 | Outpatient (REF) | payer MEDICARE ==
[2019-02-09 08:06] LABS: URINE BUPRENORPHINE See Final Results ng/mL (Cutoff=10)
== END ==
LOC: M SFHCPLAZ 11:36
PROVIDERS: ATTEND Nurse Practitioner Family
DX: F11.99 Opioid use, unspecified with unspecified opioid-induced disorder (principal); Z79.899 Other long term (current) drug therapy
CPT/HCPCS: 80307; G0463

== ENCOUNTER → 2019-02-02 | Outpatient (REF) | payer MEDICARE ==
[2019-02-04 09:37] LABS: CREATININE, URINE 13.7 mg/dL (20.0-300.0)
== END ==
LOC: M SFHCPLAZ 11:08
PROVIDERS: ATTEND Nurse Practitioner Family
DX: F11.99 Opioid use, unspecified with unspecified opioid-induced disorder (principal)
CPT/HCPCS: 80307; G0463

== ENCOUNTER → 2019-02-07 | Outpatient (REF) | payer MEDICARE ==
[2019-02-07 13:47] LABS: HEPATITIS C VIRUS ABY INDEX 0.3 INDEX (<0.8); HIV 1&2 SCREEN CENTAUR NEGATIVE (NEGATIVE)
== END ==
LOC: M SFHCPLAZ 10:12
PROVIDERS: ATTEND Nurse Practitioner Family
DX: Z11.3 Encounter for screening for infections with a predominantly sexual mode of transmission (principal)

== ENCOUNTER → 2019-03-30 | Outpatient (REF) | payer MEDICARE ==
[2019-04-05 10:11] LABS: URINE BUPRENORPHINE See Final Results ng/mL (Cutoff=10)
== END ==
LOC: M SFHCPLAZ 09:43
PROVIDERS: ATTEND Nurse Practitioner Family
DX: F11.99 Opioid use, unspecified with unspecified opioid-induced disorder (principal)
CPT/HCPCS: 80307; G0463

== ENCOUNTER → 2019-05-07 | Outpatient (REF) | payer MEDICARE | LOC: M SFHCPLAZ 10:00 | PROVIDERS: ATTEND Nurse Practitioner Family | DX: F11.99 Opioid use, unspecified with unspecified opioid-induced disorder (principal) ==

== ENCOUNTER → 2019-06-12 | Outpatient (REF) | payer MEDICARE | LOC: M SFHCPLAZ 15:54 | PROVIDERS: ATTEND Nurse Practitioner Family | DX: F11.99 Opioid use, unspecified with unspecified opioid-induced disorder (principal) ==

== ENCOUNTER → 2019-06-20 | Outpatient (CLI) | payer MEDICARE | LOC: M OUTALCOH 08:09 | PROVIDERS: ATTEND Psychiatry & Neurology Psychiatry | DX: F11.20 Opioid dependence, uncomplicated (principal) ==

== ENCOUNTER 2019-06-28 14:59 | Outpatient (RCR) | payer MEDICARE | END 2019-06-30 | LOC: M OUTALCOH 14:59 | PROVIDERS: ATTEND Psychiatry & Neurology Psychiatry | DX: F11.20 Opioid dependence, uncomplicated (principal) ==

== ENCOUNTER 2019-07-18 09:00 | Outpatient (RCR) | payer MEDICARE | END 2019-07-30 | LOC: M OUTALCOH 09:00 | PROVIDERS: ATTEND Psychiatry & Neurology Psychiatry | DX: F11.20 Opioid dependence, uncomplicated (principal) ==

== ENCOUNTER → 2019-08-01 | Outpatient (REF) | payer MEDICARE ==
[2019-08-01 10:13] LABS: BASO # 0.1 10^3/uL (0.0-0.2); BASO % 0.8 % (0.0-1.0); EOS # 0.2 10^3/uL (0.0-0.5); EOS % 2.4 % (0.0-3.0); HEMATOCRIT 47.9 % (42.0-52.0); HEMOGLOBIN 16.7 g/dl (13.5-17.5); LYMPH # 2.6 10^3/uL (1.5-5.0); LYMPH % 39.9 % (24.0-44.0); MEAN CORPUSCULAR HEMOGLOBIN 32.4 pg (27.0-33.0); MEAN CORPUSCULAR HGB CONC 34.9 g/dl (32.0-36.5); MEAN CORPUSCULAR VOLUME 92.8 fl (80.0-96.0); MONO # 0.8 10^3/uL (0.0-0.8); MONO % 11.9 % (0.0-5.0); NEUTROPHILS # 2.9 10^3/uL (1.5-8.5); NEUTROPHILS % 44.7 % (36.0-66.0); PLATELET COUNT, AUTOMATED 252 10^3/uL (150-450); RED BLOOD COUNT 5.16 10^6/uL (4.30-6.10); WHITE BLOOD COUNT 6.6 10^3/uL (4.0-10.0)
[2019-08-01 10:40] LABS: HEMOGLOBIN A1c 5.4 %
[2019-08-01 10:44] LABS: ALBUMIN 3.6 GM/DL (3.2-5.2); ALT/SGPT 36 U/L (12-78); BILIRUBIN,TOTAL 0.7 MG/DL (0.2-1.0); BLOOD UREA NITROGEN 8 MG/DL (7-18); CALCIUM LEVEL 9.2 MG/DL (8.5-10.1); CARBON DIOXIDE LEVEL 27 MEQ/L (21-32); CHLORIDE LEVEL 105 MEQ/L (98-107); CHOLESTEROL LEVEL 147 MG/DL (<200); CREATININE FOR GFR 1.09 MG/DL (0.70-1.30); GLOMERULAR FILTRATION RATE > 60.0 (>56); GLUCOSE, FASTING 83 MG/DL (70-100); HDL CHOLESTEROL 70 MG/DL (>40); LDL CHOLESTEROL 51 MG/DL (<100); NON-HDL-C 77 MG/DL; POTASSIUM SERUM 4.3 MEQ/L (3.5-5.1); SODIUM LEVEL 140 MEQ/L (136-145); THYROID STIMULATING HORMONE 0.015 uIU/ML (0.358-3.740); TOTAL PROTEIN 7.2 GM/DL (6.4-8.2); TRIGLYCERIDES LEVEL 130 MG/DL (<150)
[2019-08-01 10:59] LABS: TOTAL 25(OH) VITAMIN D 78.4 NG/ML (30.0-100.0)
[2019-08-03 00:06] LABS: TESTOSTERONE FREE (DIRECT) 11.8 pg/mL (7.2-24.0)
== END ==
LOC: M SFHCPLAZ 08:24
PROVIDERS: ATTEND Nurse Practitioner Family
DX: D75.89 Other specified diseases of blood and blood-forming organs (principal); E78.2 Mixed hyperlipidemia; Z12.5 Encounter for screening for malignant neoplasm of prostate; E55.9 Vitamin D deficiency, unspecified
CPT/HCPCS: 36415; 80053; 80061; 82306; 83036; 84402; 84403; 84439; 84443; 85025; G0103; G0463

== ENCOUNTER → 2019-09-21 | Outpatient (REF) | payer MEDICARE | LOC: M SFHCPLAZ 15:55 | PROVIDERS: ATTEND Physician Assistant | DX: F32.9 Major depressive disorder, single episode, unspecified (principal); Z79.899 Other long term (current) drug therapy | CPT/HCPCS: 36415; G0463; G0480 ==

== ENCOUNTER → 2019-09-25 | Outpatient (REF) | payer MEDICARE ==
[2019-09-25 16:46] LABS: C REACTIVE PROTEIN QUANTITATIV < 0.30 MG/DL (0.00-0.30); CPK CREATINE PHOSPHOKINASE 236 U/L (39-308); TOTAL PROTEIN 7.4 GM/DL (6.4-8.2)
[2019-09-26 10:10] LABS: HIV 1&2 SCREEN CENTAUR NEGATIVE (NEGATIVE)
[2019-09-26 12:36] LABS: ALBUMIN % 59.1 % (55.8-66.1)
[2019-09-26 12:37] LABS: ALBUMIN 4.37 GM/DL (3.29-5.55); ALPHA-1-GLOBULIN % 3.8 % (2.9-4.9); ALPHA-1-GLOBULINS 0.28 GM/DL (0.17-0.41); ALPHA-2-GLOBULINS 0.64 GM/DL (0.42-0.99); ALPHA-2-GLOBULINS % 8.7 % (7.1-11.8); BETA-1-GLOBULINS 0.46 GM/DL (0.28-0.60); BETA-1-GLOBULINS % 6.2 % (4.7-7.2); BETA-2-GLOBULINS 0.48 GM/DL (0.19-0.55); BETA-2-GLOBULINS % 6.5 % (3.2-6.5); GAMMA GLOBULIN % 15.7 % (11.1-18.8); GAMMA GLOBULINS 1.16 GM/DL (0.65-1.58)
[2019-10-16 00:06] LABS: ACETYLCHOLINE RCPTOR BINDING A 0.03 nmol/L (0.00-0.24); ACETYLCHOLINE RCPTOR BLOCK AB 25 % (0-25); ACETYLCHOLINE RCPTOR MODULATIN <12 % (0-20); ALPHA 1 ANTITRYPSIN 141 mg/dL (101-187); ANTI-SMOOTH MUSCLE ANTIBODY 5 Units (0-19); ANTINUCLEAR ANTIBODIES DIRECT Negative (Negative); Lyme Disease IgG/IgM Antibodie <0.91 ISR (0.00-0.90); Lyme Disease IgM Ab Quantitati <0.80 index (0.00-0.79); TREPONEMA ANTIBODY IgM <0.9 I.V. (.)
== END ==
LOC: M SFHCPLAZ 13:21
PROVIDERS: ATTEND Family Medicine
DX: R53.1 Weakness (principal)
CPT/HCPCS: 36415; 82103; 82550; 83516; 83519; 84165; 85652; 86038; 86140; 86255; 86335; 86617; 86780; 87389; G0463

== ENCOUNTER 2019-11-30 14:18 | Emergency (ER) | payer MEDICARE ==
[~2019-11-30] VITALS: Ht 165.1 cm; Wt 75.5 kg
[~2019-11-30 14:18] MED LIST changes: -CELE1CAP9; +CELE1CAP9 PO; -VENL75CA47; +VENL75CA47 PO
[2019-11-30] MEDS ORDERED: HYDR-4513 PO (15:19)
[2019-11-30] MEDS ORDERED: CALCTAB89 PO (15:19)
[2019-11-30] MEDS ORDERED: FLUD0.1T PO (15:19)
[2019-11-30 15:20] LABS: INFLUENZA A AMPLIFICATION POSITIVE (NEGATIVE); INFLUENZA B AMPLIFICATION NEGATIVE (NEGATIVE)
[2019-11-30] MEDS ORDERED: NS 1,000 ML IV ONE (18:30)
[2019-11-30 19:11] LABS: BASO % 0.8 % (0.0-1.0); EOS % 0.2 % (0.0-3.0); HEMATOCRIT 45.8 % (42.0-52.0); HEMOGLOBIN 15.7 g/dl (13.5-17.5); LYMPH # 2.1 10^3/uL (1.5-5.0); LYMPH % 41.2 % (24.0-44.0); MEAN CORPUSCULAR HGB CONC 34.3 g/dl (32.0-36.5); MEAN CORPUSCULAR VOLUME 93.3 fl (80.0-96.0); MONO # 1.1 10^3/uL (0.0-0.8); MONO % 20.9 % (0.0-5.0); NEUTROPHILS # 1.9 10^3/uL (1.5-8.5); NEUTROPHILS % 36.7 % (36.0-66.0); PLATELET COUNT, AUTOMATED 192 10^3/uL (150-450); RED BLOOD COUNT 4.91 10^6/uL (4.30-6.10); WHITE BLOOD COUNT 5.2 10^3/uL (4.0-10.0)
[2019-11-30 19:39] LABS: ALBUMIN 3.6 GM/DL (3.2-5.2); ALT/SGPT 48 U/L (12-78); BILIRUBIN,DIRECT 0.2 MG/DL (0.0-0.2); BILIRUBIN,TOTAL 0.3 MG/DL (0.2-1.0); CK-MB VALUE MASS 1.9 NG/ML (<3.6); CPK CREATINE PHOSPHOKINASE 219 U/L (39-308); MB/CK RELATIVE INDEX 0.87 (< OR =4); TOTAL PROTEIN 7.2 GM/DL (6.4-8.2); TROPONIN I < 0.02 NG/ML (< 0.10)
--- NOTE | 2019-11-30 19:45 | REPVR ---
PROCEDURE INFORMATION: Exam: CT Head Without Contrast Exam date and time: 11/30/2019 6:58 PM Age: 54 years old Clinical indication: Altered mental status/memory loss; Confusion or disorientation TECHNIQUE: Imaging protocol: Computed tomography of the head without contrast. Radiation optimization: All CT scans at this facility use at least one of these dose optimization techniques: automated exposure control; mA and/or kV adjustment per patient size (includes targeted exams where dose is matched to clinical indication); or iterative reconstruction. COMPARISON: CT Head without contrast 03/28/2018 2:20 PM FINDINGS: Brain: Unremarkable. No hemorrhage. No significant white matter disease. No edema. Ventricles: Unremarkable. No ventriculomegaly. Bones/joints: Unremarkable. No acute fracture. Sinuses: Fluid levels within the right and left maxillary sinuses which may be seen with acute sinusitis. Mastoid air cells: Visualized mastoid air cells are well aerated. Soft tissues: Unremarkable. IMPRESSION: 1. No acute intracranial abnormality. 2. Fluid levels within the right and left maxillary sinuses which may be seen with acute sinusitis. Electronically signed by: Peter Blakely On 11/30/2019 19:46:44 PM
--- NOTE | 2019-11-30 19:52 | REPVR ---
PROCEDURE INFORMATION: Exam: CT Cervical Spine Without Contrast Exam date and time: 11/30/2019 6:58 PM Age: 54 years old Clinical indication: Injury or trauma; Fall; Initial encounter; Blunt trauma; Additional info: Altered mental status TECHNIQUE: Imaging protocol: Computed tomography images of the cervical spine without contrast. Radiation optimization: All CT scans at this facility use at least one of these dose optimization techniques: automated exposure control; mA and/or kV adjustment per patient size (includes targeted exams where dose is matched to clinical indication); or iterative reconstruction. COMPARISON: MRI-Spine,Cervical without con 01/16/2014 1:55 PM FINDINGS: Vertebrae: Degenerative disc disease and facet arthrosis is present throughout the cervical spine. There is minimal retrolisthesis of C3, likely degenerative. No fracture. 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 Discs/Spinal canal/Neural foramina: No severe bony spinal stenosis. Moderate severe neural foraminal bony stenosis bilaterally at C3-C4, C4-C5. Moderate neural foraminal bony stenosis on the right at C5-C6 and C6-C7. Soft tissues: Unremarkable. Sinuses: Mucosal thickening and fluid levels within the right and left maxillary sinuses which may be seen with acute sinusitis. Lungs: Lung apices are clear. IMPRESSION: 1. No acute fracture. 2. Degenerative spondylosis of the cervical spine. 3. Mucosal thickening and fluid levels within the right and left maxillary sinuses which may be seen with acute sinusitis. Electronically signed by: Peter Blakely On 11/30/2019 19:53:55 PM
[2019-11-30] MEDS ORDERED: AZIT-12 PO (21:10)
[2019-11-30] MEDS ORDERED: OSEL75CA PO (21:10)
[2019-11-30 21:24] VITALS: BP 120/81
--- NOTE | 2019-12-01 08:02 | REP ---
PA and lateral chest: Comparison is 04/03/2012. The lung nelson are clear. The cardiac size is normal. The bruna, mediastinum, and skeletal structures are unremarkable. There are bilateral cervical ribs, unchanged. Impression: Negative PA and lateral chest. There is no interval change. Electronically Signed by Brennan Krishnan MD 12/01/2019 07:54 A
--- NOTE | 2019-12-01 21:33 | ECGEPIP ---
[facility] - ED Test Date: 2019-11-30 Pat Name: JACKIE AMBROSE Department: Room: - Gender: Male Billing Collections Specialist: : [id number] Requested By: NOLAN RAVI PA-C Order Number: [id number] Reading MD: Freddy Leger Measurements Intervals [place] Rate: 57 P: VT: 0 QRS: -25 QRSD: 94 T: 10 QT: 415 QTc: 406 Interpretive Statements SINUS BRADYCARDIA WITH SHORT VT INTERVAL MODERATE INTRAVENTRICULAR CONDUCTION DELAY SIMILAR TO 09/14/18 Electronically Signed on 12-01-2019 21:32:59 EST by Freddy Leger
== END 2019-11-30 21:24 | disposition home or self-care (01) ==
LOC: M ED 14:18
DX: J32.0 Chronic maxillary sinusitis (principal); J11.89 Influenza due to unidentified influenza virus with other manifestations; I48.91 Unspecified atrial fibrillation; E78.5 Hyperlipidemia, unspecified; K21.9 Gastro-esophageal reflux disease without esophagitis; E03.9 Hypothyroidism, unspecified; F33.9 Major depressive disorder, recurrent, unspecified; F41.9 Anxiety disorder, unspecified; G47.33 Obstructive sleep apnea (adult) (pediatric); M51.9 Unspecified thoracic, thoracolumbar and lumbosacral intervertebral disc disorder; Z79.899 Other long term (current) drug therapy; Z88.0 Allergy status to penicillin; Z88.8 Allergy status to other drugs, medicaments and biological substances

== ENCOUNTER → 2020-02-15 | Outpatient (CLI) | payer MEDICARE ==
[~2020-02-15] MED LIST changes: +AZIT-12 PO; +CALCTAB89 PO; +FLUD0.1T PO; +OSEL75CA PO
[2020-02-15 12:47] LABS: BLOOD UREA NITROGEN 18 MG/DL (7-18); CALCIUM LEVEL 8.8 MG/DL (8.5-10.1); CARBON DIOXIDE LEVEL 31 MEQ/L (21-32); CHLORIDE LEVEL 105 MEQ/L (98-107); CREATININE FOR GFR 0.88 MG/DL (0.70-1.30); GLOMERULAR FILTRATION RATE > 60.0 (>56); GLUCOSE, FASTING 112 MG/DL (70-100); POTASSIUM SERUM 4.7 MEQ/L (3.5-5.1); SODIUM LEVEL 139 MEQ/L (136-145)
[2020-02-15 12:48] LABS: ALBUMIN 3.6 GM/DL (3.2-5.2); FREE T4 1.15 NG/DL (0.76-1.46); PHOSPHORUS LEVEL 3.4 MG/DL (2.5-4.9)
[2020-02-20 00:06] LABS: TESTOSTERONE FREE (DIRECT) 3.9 pg/mL (7.2-24.0)
== END ==
LOC: M LAB 11:30
PROVIDERS: ATTEND Family Medicine
DX: R53.1 Weakness (principal); E03.9 Hypothyroidism, unspecified
CPT/HCPCS: 36415; 80069; 82088; 84244; 84402; 84403; 84439; 84480; G0463

== ENCOUNTER → 2020-02-15 | Outpatient (REF) | payer MEDICARE | LOC: M SFHCPLAZ 11:02 | PROVIDERS: ATTEND Family Medicine | DX: R53.1 Weakness (principal); E03.9 Hypothyroidism, unspecified ==

== ENCOUNTER → 2020-04-15 | Outpatient (REF) | payer MEDICARE ==
[~2020-04-15] MED LIST changes: +HYDR-4468 PO; -HYDR-4513 PO
[2020-04-15 15:45] LABS: ALBUMIN 3.7 GM/DL (3.2-5.2); ALT/SGPT 50 U/L (12-78); BILIRUBIN,TOTAL 0.3 MG/DL (0.2-1.0); BLOOD UREA NITROGEN 15 MG/DL (7-18); C REACTIVE PROTEIN QUANTITATIV 0.58 MG/DL (0.00-0.30); CALCIUM LEVEL 8.8 MG/DL (8.5-10.1); CARBON DIOXIDE LEVEL 30 MEQ/L (21-32); CHLORIDE LEVEL 108 MEQ/L (98-107); CHOLESTEROL LEVEL 135 MG/DL (<200); CHOLESTEROL RISK RATIO 2.177 (<5); CPK CREATINE PHOSPHOKINASE 362 U/L (39-308); CREATININE FOR GFR 0.86 MG/DL (0.70-1.30); GLOMERULAR FILTRATION RATE > 60.0 (>56); GLUCOSE, FASTING 98 MG/DL (70-100); HDL CHOLESTEROL 62 MG/DL (>40); LDL CHOLESTEROL 62 MG/DL (<100); NON-HDL-C 73 MG/DL; POTASSIUM SERUM 4.9 MEQ/L (3.5-5.1); RHEUMATOID FACTOR QUANT < 10.0 IU/ML (<15.0); SODIUM LEVEL 143 MEQ/L (136-145); TOTAL PROTEIN 6.7 GM/DL (6.4-8.2); TRIGLYCERIDES LEVEL 54 MG/DL (<150)
[2020-04-15 15:48] LABS: PROLACTIN 11.6 NG/ML (2.1-17.7); TOTAL T3 157.7 NG/DL (60.0-181.0)
== END ==
LOC: M SFHCPLAZ 12:53
PROVIDERS: ATTEND Family Medicine
DX: R53.83 Other fatigue (principal); E23.0 Hypopituitarism; M19.049 Primary osteoarthritis, unspecified hand; E78.2 Mixed hyperlipidemia

== ENCOUNTER → 2020-04-25 | Outpatient (CLI) | payer MEDICARE ==
--- NOTE | 2020-04-29 08:45 | DEXA ---
AP SPINE L1 - L4 1.444 2.0 2.0 LT FEMUR TOTAL 0.972 -0.3 -0.5 LT NECK 0.977 -0.4 0.1 RT FEMUR TOTAL 0.977 -0.2 -0.4 RT NECK 1.017 -0.2 0.4 TOTAL BODY TOTAL OTHER COMMENTS: Normal bone densitometry of the spine and hips. The increased density of the spine does represent a significant change. The increased density of the left hip does represent a significant change. The increased density of the right hip does represent significant change. The density of the spine is increased 18.1% since the initial exam on 06/06/2009. The increased 3.5% since the most recent exam on 12/14/2016. The density of the left hip has increased 4.3% since the initial exam on 06/06/2009. The density of the left hip has increased 9.8% since the most recent exam on 12/14/2016. The density of the right hip has increased 2.3% since the initial exam on 06/06/2009. The density of the right hip has increased 6.5% since the most recent exam on 12/14/2016. FOLLOW-UP: Recommendation for the next bone density exam: 5 years. EDWIN
== END ==
LOC: M WHC 10:53
PROVIDERS: ATTEND Family Medicine
DX: M81.0 Age-related osteoporosis without current pathological fracture (principal)

== ENCOUNTER → 2020-06-20 | Outpatient (CLI) | payer MEDICARE ==
[2020-06-20 17:28] LABS: BASO # 0.1 10^3/uL (0.0-0.2); BASO % 1.2 % (0.0-1.0); EOS # 0.1 10^3/uL (0.0-0.5); EOS % 1.4 % (0.0-3.0); HEMATOCRIT 46.7 % (42.0-52.0); HEMOGLOBIN 16.3 g/dl (13.5-17.5); LYMPH # 2.5 10^3/uL (1.5-5.0); LYMPH % 42.2 % (24.0-44.0); MEAN CORPUSCULAR HEMOGLOBIN 31.9 pg (27.0-33.0); MEAN CORPUSCULAR HGB CONC 34.9 g/dl (32.0-36.5); MEAN CORPUSCULAR VOLUME 91.4 fl (80.0-96.0); MONO # 0.6 10^3/uL (0.0-0.8); MONO % 9.3 % (0.0-5.0); NEUTROPHILS # 2.7 10^3/uL (1.5-8.5); NEUTROPHILS % 45.7 % (36.0-66.0); PLATELET COUNT, AUTOMATED 261 10^3/uL (150-450); RED BLOOD COUNT 5.11 10^6/uL (4.30-6.10); WHITE BLOOD COUNT 5.9 10^3/uL (4.0-10.0)
[2020-06-20 18:05] LABS: ERYTHROCYTE SEDIMENTATION RATE 3 mm/hr (0-20)
[2020-06-20 18:22] LABS: ALBUMIN 4.1 GM/DL (3.2-5.2); ALT/SGPT 26 U/L (12-78); BILIRUBIN,TOTAL 0.7 MG/DL (0.2-1.0); BLOOD UREA NITROGEN 17 MG/DL (7-18); CALCIUM LEVEL 9.1 MG/DL (8.5-10.1); CARBON DIOXIDE LEVEL 33 MEQ/L (21-32); CHLORIDE LEVEL 106 MEQ/L (98-107); CREATININE FOR GFR 0.88 MG/DL (0.70-1.30); GLOMERULAR FILTRATION RATE > 60.0 (>56); GLUCOSE, FASTING 71 MG/DL (70-100); IRON (FE) 216 UG/DL (65-175); PERCENT SATURATION 61.7 % (19.7-50.0); POTASSIUM SERUM 4.6 MEQ/L (3.5-5.1); SODIUM LEVEL 140 MEQ/L (136-145); THYROID STIMULATING HORMONE 0.007 uIU/ML (0.358-3.740); TOTAL IRON BINDING CAPACITY 350 UG/DL (250-450); TOTAL PROTEIN 7.7 GM/DL (6.4-8.2)
[2020-06-23 18:06] LABS: EBV AB TO NUCLEAR ANTIGEN >600.0 U/mL (0.0-17.9); EBV VIRAL CAPSID AG IgG 35.1 U/mL (0.0-17.9); EBV VIRAL CAPSID AG IgM <36.0 U/mL (0.0-35.9); Lyme Disease IgG/IgM Antibodie <0.91 ISR (0.00-0.90); Lyme Disease IgM Ab Quantitati <0.80 index (0.00-0.79); VITAMIN D 1,25 DIHYDROXY 55.8 pg/mL (19.9-79.3)
== END ==
LOC: M WUC 14:12
PROVIDERS: ATTEND Nurse Practitioner Family
DX: R53.83 Other fatigue (principal); M79.10 Myalgia, unspecified site

== ENCOUNTER 2020-07-06 18:49 | Emergency (ER) | payer MEDICARE, MEDICAID ==
[~2020-07-06] VITALS: Ht 165.1 cm; Wt 73.0 kg
[2020-07-06] MEDS: GASTROGRAFIN SOLUTION 30ML PO SCH ×2 (20:57→21:00)
[2020-07-06 21:04] LABS: BASO % 0.5 % (0.0-1.0); EOS % 0.4 % (0.0-3.0); HEMATOCRIT 47.8 % (42.0-52.0); LYMPH # 2.7 10^3/uL (1.5-5.0); LYMPH % 34.9 % (24.0-44.0); MEAN CORPUSCULAR HEMOGLOBIN 32.3 pg (27.0-33.0); MEAN CORPUSCULAR HGB CONC 35.6 g/dl (32.0-36.5); MEAN CORPUSCULAR VOLUME 90.7 fl (80.0-96.0); MONO # 0.6 10^3/uL (0.0-0.8); NEUTROPHILS # 4.4 10^3/uL (1.5-8.5); NEUTROPHILS % 55.9 % (36.0-66.0); PLATELET COUNT, AUTOMATED 261 10^3/uL (150-450); RED BLOOD COUNT 5.27 10^6/uL (4.30-6.10); WHITE BLOOD COUNT 7.8 10^3/uL (4.0-10.0)
[2020-07-06 21:18] LABS: ALBUMIN 3.9 GM/DL (3.2-5.2); BILIRUBIN,DIRECT 0.1 MG/DL (0.0-0.2); BILIRUBIN,TOTAL 0.4 MG/DL (0.2-1.0); TOTAL PROTEIN 7.8 GM/DL (6.4-8.2)
[2020-07-06 21:23] LABS: THYROID STIMULATING HORMONE 0.544 uIU/ML (0.358-3.740)
[2020-07-06] MEDS ORDERED: ISOVUE-370 76% 100ML VIAL As Ordered ONE (21:48)
--- NOTE | 2020-07-06 22:22 | REPVR ---
PROCEDURE INFORMATION: Exam: CT Abdomen And Pelvis With Contrast Exam date and time: 07/06/2020 10:02 PM Age: 55 years old Clinical indication: Other: Neck pain/hx chiari malformation TECHNIQUE: Imaging protocol: Computed tomography of the abdomen and pelvis with intravenous contrast. Radiation optimization: All CT scans at this facility use at least one of these dose optimization techniques: automated exposure control; mA and/or kV adjustment per patient size (includes targeted exams where dose is matched to clinical indication); or iterative reconstruction. Contrast material: ISOVUE 370; Contrast volume: 100 ml; Contrast route: INTRAVENOUS (IV); Other contrast: Oral, gastrographin, 10ml gastro in 290ml water; COMPARISON: CT ABD PELVIS W/O CONTRAST 09/17/2016 7:25 AM FINDINGS: Lungs: Minimal bibasilar fibro-atelectatic change. Liver: The liver attenuation is 83 Hounsfield units and the spleen is 126 Hounsfield units. Gallbladder and bile ducts: Normal. No calcified stones. No ductal dilation. Pancreas: Normal. No ductal dilation. Spleen: Normal. No splenomegaly. Adrenals: Normal. No mass. Kidneys and ureters: Normal. No hydronephrosis. Stomach and bowel: Mild stool and gas throughout much of the colon. Minimal colonic diverticulosis without diverticulitis. Appendix: There are no changes of appendicitis. A normal appendix is not seen. Intraperitoneal space: Unremarkable. No free air. No significant fluid collection. Vasculature: Unremarkable. No abdominal aortic aneurysm. Lymph nodes: Unremarkable. No enlarged lymph nodes. Bladder: Unremarkable as visualized. Reproductive: Unremarkable as visualized. Bones/joints: Mild degenerative change of the lumbar spine. Soft tissues: Unremarkable. IMPRESSION: 1. A large left renal calculus is no longer seen since 09/17/2016. 2. Fatty infiltration of the liver. 3. Minimal colonic diverticulosis without diverticulitis. 4. Otherwise negative CT abdomen/pelvis. Electronically signed by: Dean Woodard On 07/06/2020 22:22:12 PM
[2020-07-06 23:25] VITALS: BP 121/82
[2020-07-08 11:47] LABS: HEPATITIS B SURFACE ANTIGEN NEGATIVE (NEGATIVE)
[2020-07-08 12:15] LABS: HEPATITIS B CORE ANTIBODY IGM NEGATIVE (NEGATIVE); HEPATITIS C VIRUS ABY INDEX 0.4 INDEX (<0.8)
[2020-07-08 12:16] LABS: HIV 1&2 SCREEN CENTAUR NEGATIVE (NEGATIVE)
[2020-07-08 12:17] LABS: HEPATITIS A ANTIBODY IGM NEGATIVE (NEGATIVE)
== END 2020-07-06 23:42 | disposition home or self-care (01) ==
LOC: M ED 18:49
DX: R10.9 Unspecified abdominal pain (principal); R53.83 Other fatigue; R06.02 Shortness of breath; K57.30 Diverticulosis of large intestine without perforation or abscess without bleeding; K57.10 Diverticulosis of small intestine without perforation or abscess without bleeding; K76.0 Fatty (change of) liver, not elsewhere classified; R63.4 Abnormal weight loss; B27.90 Infectious mononucleosis, unspecified without complication; E23.0 Hypopituitarism; M06.9 Rheumatoid arthritis, unspecified; Z88.0 Allergy status to penicillin; Z88.8 Allergy status to other drugs, medicaments and biological substances; Z79.899 Other long term (current) drug therapy
CPT/HCPCS: 36415; 74177; 80047; 80076; 81001; 83690; 84439; 84443; 85025; 86705; 86709; 86803; 87340; 87389; 99284; Q9963; Q9967

== ENCOUNTER → 2020-08-19 | Outpatient (CLI) | payer MEDICARE ==
[2020-08-19 16:27] LABS: ALBUMIN 3.9 GM/DL (3.2-5.2); ALT/SGPT 28 U/L (12-78); BILIRUBIN,TOTAL 0.4 MG/DL (0.2-1.0); BLOOD UREA NITROGEN 9 MG/DL (7-18); C REACTIVE PROTEIN QUANTITATIV 1.25 MG/DL (0.00-0.30); CARBON DIOXIDE LEVEL 28 MEQ/L (21-32); CHLORIDE LEVEL 106 MEQ/L (98-107); CREATININE FOR GFR 1.23 MG/DL (0.70-1.30); GLOMERULAR FILTRATION RATE > 60.0 (>56); GLUCOSE, FASTING 117 MG/DL (70-100); POTASSIUM SERUM 4.6 MEQ/L (3.5-5.1); RHEUMATOID FACTOR QUANT < 10.0 IU/ML (<15.0); SODIUM LEVEL 140 MEQ/L (136-145)
[2020-08-19 17:15] LABS: HIV 1&2 SCREEN CENTAUR NEGATIVE (NEGATIVE)
[2020-08-22 02:07] LABS: CYCLIC CITRULLINATED PEPTIDE 9 units (0-19); TESTOSTERONE FREE (DIRECT) 3.4 pg/mL (7.2-24.0)
== END ==
LOC: M PLALAB 12:57
PROVIDERS: ATTEND Family Medicine
DX: M47.816 Spondylosis without myelopathy or radiculopathy, lumbar region (principal)

== ENCOUNTER → 2020-10-06 | Outpatient (CLI) | payer MEDICARE | LOC: M LABSMTC 08:18 | PROVIDERS: ATTEND Pediatrics | DX: Z20.828 Contact with and (suspected) exposure to other viral communicable diseases (principal) ==

== ENCOUNTER → 2020-11-26 | Outpatient (REF) | payer MEDICARE ==
[2020-11-26 11:13] LABS: BASO # 0.1 10^3/uL (0.0-0.2); BASO % 0.8 % (0.0-1.0); EOS # 0.2 10^3/uL (0.0-0.5); EOS % 2.1 % (0.0-3.0); HEMATOCRIT 47.8 % (42.0-52.0); HEMOGLOBIN 16.6 g/dl (13.5-17.5); LYMPH # 2.5 10^3/uL (1.5-5.0); LYMPH % 29.5 % (24.0-44.0); MEAN CORPUSCULAR HEMOGLOBIN 32.8 pg (27.0-33.0); MEAN CORPUSCULAR HGB CONC 34.7 g/dl (32.0-36.5); MEAN CORPUSCULAR VOLUME 94.5 fl (80.0-96.0); MONO # 0.9 10^3/uL (0.0-0.8); MONO % 9.9 % (0.0-5.0); NEUTROPHILS % 57.4 % (36.0-66.0); PLATELET COUNT, AUTOMATED 277 10^3/uL (150-450); RED BLOOD COUNT 5.06 10^6/uL (4.30-6.10); WHITE BLOOD COUNT 8.6 10^3/uL (4.0-10.0)
[2020-11-26 11:42] LABS: ALBUMIN 3.8 GM/DL (3.2-5.2); ALT/SGPT 22 U/L (12-78); BILIRUBIN,TOTAL 0.6 MG/DL (0.2-1.0); BLOOD UREA NITROGEN 14 MG/DL (7-18); C REACTIVE PROTEIN QUANTITATIV 0.47 MG/DL (0.00-0.30); CARBON DIOXIDE LEVEL 33 MEQ/L (21-32); CHLORIDE LEVEL 104 MEQ/L (98-107); CPK CREATINE PHOSPHOKINASE 195 U/L (39-308); CREATININE FOR GFR 1.12 MG/DL (0.70-1.30); GLOMERULAR FILTRATION RATE > 60.0 (>56); GLUCOSE, FASTING 93 MG/DL (70-100); POTASSIUM SERUM 4.1 MEQ/L (3.5-5.1); SODIUM LEVEL 141 MEQ/L (136-145); TOTAL PROTEIN 7.5 GM/DL (6.4-8.2)
[2020-12-05 09:07] LABS: FREE T4 BY DIALYSIS DIRECT 1.1 ng/dL (.); TESTOSTERONE FREE (DIRECT) 13.3 pg/mL (7.2-24.0)
== END ==
LOC: M PLALAB 08:12
PROVIDERS: ATTEND Nurse Practitioner Family
DX: E03.9 Hypothyroidism, unspecified (principal); E23.0 Hypopituitarism; E29.1 Testicular hypofunction

== ENCOUNTER → 2020-12-17 | Outpatient (REF) | payer MEDICARE ==
[2020-12-17 11:37] LABS: BASO # 0.1 10^3/uL (0.0-0.2); BASO % 1.1 % (0.0-1.0); EOS # 0.2 10^3/uL (0.0-0.5); EOS % 2.8 % (0.0-3.0); HEMATOCRIT 45.6 % (42.0-52.0); HEMOGLOBIN 15.5 g/dl (13.5-17.5); LYMPH # 2.8 10^3/uL (1.5-5.0); LYMPH % 39.1 % (24.0-44.0); MEAN CORPUSCULAR HEMOGLOBIN 32.2 pg (27.0-33.0); MEAN CORPUSCULAR VOLUME 94.8 fl (80.0-96.0); MONO # 0.7 10^3/uL (0.0-0.8); MONO % 9.3 % (2.0-8.0); NEUTROPHILS # 3.4 10^3/uL (1.5-8.5); NEUTROPHILS % 47.3 % (36.0-66.0); PLATELET COUNT, AUTOMATED 278 10^3/uL (150-450); RED BLOOD COUNT 4.81 10^6/uL (4.30-6.10); WHITE BLOOD COUNT 7.2 10^3/uL (4.0-10.0)
[2020-12-17 12:12] LABS: ALBUMIN 3.6 GM/DL (3.2-5.2); ALT/SGPT 38 U/L (12-78); BILIRUBIN,TOTAL 0.4 MG/DL (0.2-1.0); BLOOD UREA NITROGEN 12 MG/DL (7-18); CALCIUM LEVEL 8.8 MG/DL (8.5-10.1); CARBON DIOXIDE LEVEL 31 MEQ/L (21-32); CHLORIDE LEVEL 103 MEQ/L (98-107); CK-MB VALUE MASS 3.9 NG/ML (<3.6); CPK CREATINE PHOSPHOKINASE 207 U/L (39-308); CREATININE FOR GFR 0.93 MG/DL (0.70-1.30); GLOMERULAR FILTRATION RATE > 60.0 (>56); GLUCOSE, FASTING 92 MG/DL (70-100); MB/CK RELATIVE INDEX 1.88 (< OR =4); POTASSIUM SERUM 4.7 MEQ/L (3.5-5.1); SODIUM LEVEL 138 MEQ/L (136-145); TOTAL PROTEIN 7.1 GM/DL (6.4-8.2); TROPONIN I < 0.02 NG/ML (< 0.10)
[2020-12-17 14:14] LABS: NT-PRO BNP 11 PG/ML (<125)
== END ==
LOC: M SFHCPLAZ 10:08
PROVIDERS: ATTEND Physician Assistant
DX: R74.8 Abnormal levels of other serum enzymes (principal); R07.9 Chest pain, unspecified

== ENCOUNTER → 2021-03-10 | Outpatient (REF) | payer MEDICARE ==
[2021-03-10 15:05] LABS: BASO # 0.1 10^3/uL (0.0-0.2); BASO % 1.2 % (0.0-1.0); EOS # 0.2 10^3/uL (0.0-0.5); EOS % 2.6 % (0.0-3.0); HEMATOCRIT 46.7 % (42.0-52.0); LYMPH # 2.3 10^3/uL (1.5-5.0); LYMPH % 34.8 % (24.0-44.0); MEAN CORPUSCULAR HEMOGLOBIN 32.8 pg (27.0-33.0); MEAN CORPUSCULAR HGB CONC 34.3 g/dl (32.0-36.5); MEAN CORPUSCULAR VOLUME 95.7 fl (80.0-96.0); MONO # 0.7 10^3/uL (0.0-0.8); MONO % 10.7 % (2.0-8.0); NEUTROPHILS # 3.4 10^3/uL (1.5-8.5); NEUTROPHILS % 50.5 % (36.0-66.0); PLATELET COUNT, AUTOMATED 294 10^3/uL (150-450); RED BLOOD COUNT 4.88 10^6/uL (4.30-6.10); WHITE BLOOD COUNT 6.6 10^3/uL (4.0-10.0)
[2021-03-10 15:39] LABS: ALBUMIN 3.8 GM/DL (3.2-5.2); ALT/SGPT 29 U/L (12-78); BILIRUBIN,TOTAL 0.5 MG/DL (0.2-1.0); BLOOD UREA NITROGEN 12 MG/DL (7-18); C REACTIVE PROTEIN QUANTITATIV 1.09 MG/DL (0.00-0.30); CALCIUM LEVEL 8.8 MG/DL (8.5-10.1); CARBON DIOXIDE LEVEL 32 MEQ/L (21-32); CHLORIDE LEVEL 105 MEQ/L (98-107); COMPLEMENT C3 119 MG/DL (90-180); COMPLEMENT C4 46 MG/DL (10-40); CREATININE FOR GFR 0.88 MG/DL (0.70-1.30); GLOMERULAR FILTRATION RATE > 60.0 (>56); GLUCOSE, FASTING 75 MG/DL (70-100); POTASSIUM SERUM 4.4 MEQ/L (3.5-5.1); SODIUM LEVEL 139 MEQ/L (136-145); TOTAL PROTEIN 7.6 GM/DL (6.4-8.2)
[2021-03-10 15:41] LABS: ERYTHROCYTE SEDIMENTATION RATE 8 mm/hr (0-20)
== END ==
LOC: M PLALAB 13:52
PROVIDERS: ATTEND Nurse Practitioner Family
DX: M19.90 Unspecified osteoarthritis, unspecified site (principal)

== ENCOUNTER → 2021-06-24 | Outpatient (REF) | payer MEDICARE ==
[~2021-06-24] MED LIST changes: +D32000CA PO; +MEDR8TAB PO; +METH10CA2 PO; +OXYC-517 PO; +PREG200C PO; +SUBO12MI SL; +TIZA10TA PO
[2021-06-24 13:43] LABS: APPEARANCE, URINE CLEAR (CLEAR); BACTERIA, URINE AUTO NEGATIVE (NEGATIVE); BILIRUBIN, URINE AUTO NEGATIVE (NEGATIVE); BLOOD, URINE BLOOD NEGATIVE (NEGATIVE); COLOR, URINE YELLOW (YELLOW); GLUCOSE, URINE (UA) AUTO NEGATIVE (NEGATIVE); KETONE, URINE AUTO TRACE mg/dL (NEGATIVE); LEUKOCYTE ESTERASE, URINE AUTO TRACE (NEGATIVE); MUCUS, URINE SMALL (NEGATIVE); NITRITE, URINE AUTO NEGATIVE (NEGATIVE); PROTEIN, URINE AUTO 1+ mg/dL (NEGATIVE); RBC, URINE AUTO 2 /HPF (0-3); SPECIFIC GRAVITY URINE AUTO 1.014 (1.002-1.035); SQUAMOUS EPITHELIAL CELL UR AU 0 /HPF (0-6); UROBILINOGEN, URINE AUTO 0.2 mg/dL (0.0-2.0); WBC, URINE AUTO 8 /HPF (0-3)
== END ==
LOC: M SFHCPLAZ 12:47
PROVIDERS: ATTEND Physician Assistant Medical
DX: J06.9 Acute upper respiratory infection, unspecified (principal); R30.0 Dysuria

== ENCOUNTER 2021-09-03 03:39 | Inpatient (IN) | payer MEDICARE ==
[~2021-09-03] VITALS: Ht 165.1 cm; Wt 73.2 kg
[~2021-09-03 03:39] MED LIST changes: -D32000CA PO; -MEDR8TAB PO; -METH10CA2 PO; -OXYC-517 PO; -PREG200C PO; -SUBO12MI SL; -TIZA10TA PO
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
--- OUTSIDE RECORDS SUMMARY | 2021-09-03 03:48 | CCD ---
Author Author [facility] Organization [facility] ems Address Unknown Phone Unavailable Care Team Providers Care Otr Refrigerated Cdl Truck Driver Name Role Phone Reuben Flores Unavailable PROBLEMS Type Condition ICD9-CM Code [id number] Code Onset Dates Condition S tatus W/U Status Risk SNOMED Code Notes Problem Atrial fibrillation I48.91 Active confirmed 43893452 Problem Hypothyroidism E03.9 Active confirmed 67620 008 Problem Allergic rhinitis J30.9 Active confirmed 61 889787 Problem Carpal tunnel syndrome G56.00 Active confirmed 91208143 Problem Androgen deficiency E29.1 Active confirmed 81959085 Problem Benign prostatic hyperplasia with lower urinary tract symptoms N40.1 Active confirmed 629977901 Problem Osteoarthritis of spine with radiculopathy, lumbar region M47.26 Active confirmed 732992884 Problem Osteoarthritis of first carpometacarpal joint, unspecified M18.9 Active confirmed 33870729 Problem 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 Active confirmed 4485 50885 Problem Degeneration of cervical intervertebral disc M50.3 0 Active confirmed 32612917 Problem Impotence of organic origin N52.9 Active confirmed 512897911 Problem Depression F32.9 Active confirmed 999697692 Problem Osteopenia M85.80 Active confirmed 760617822 Problem Nephrolithiasis N20.0 Active confirmed 9557 0007 Problem Panic disorder F41.0 Active confirmed 81227 1005 Problem 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 Active confirmed 7472 8003 Problem Recurrent sinusitis J32.9 Active confirmed 030829383 Problem Constipation, chronic K59.09 Active confirmed 253917174 Problem JOCELYN (obstructive sleep apnea) G47.33 Active confirm ed 70476499 Problem Macrocytosis D75.89 Active confirmed 5672387 00 Problem Prostate cancer screening Z12.5 Active confirmed 162996148 Problem 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 Active confirmed 3 5700084 Problem 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 Active confirmed 98503873 Problem Primary insomnia F51.01 Active confirmed 397 2004 Problem Inflammatory arthritis M19.90 Active confirmed 1832143 Problem Vitamin D deficiency E55.9 Active confirmed 17127489 Problem Mixed hyperlipidemia E78.2 Active confirmed 385631204 Problem Opioid use disorder F11.99 Active confirmed 58422339 Problem Fatigue R53.83 Active confirmed 21883691 Problem Colon cancer screening Z12.11 Active confirmed 003108120 Problem Chronic fatigue R53.82 Active confirmed 8422 9001 ALLERGIES Allergen (clinical drug ingredient) Drug/Non Drug Allergy do cumented on EMR Reaction Allergy Type Onset Date Status Penicillin (For Allergies Use Only) agitation Drug Allerg y Active ENCOUNTERS from 1965 to 2021-07-28 Encounter Location Date Provider Diagnosis [facility] [address] [facility] [phone] [place] [address] 24 Jul, 2021 Reuben Flores Osteoarthritis of spine with radiculopathy, lumbar region M47.26 and Primary insomnia F51.01 IMMUNIZATIONS Vaccine Route Administration Date Status Influenza [...] Education Language: Question Answer Notes Languages spoken: Sinhala Cheondoism: Question Answer Notes Cheondoism 33 None No baptist beliefs that would impact health care. Sexual [...] Notes Start Da te End Date Status Hydrocortisone 10 MG 1 in am / /2 in mid afterno on/ 2 in pm Orally TID for 90 day(s) Active Celecoxib 200 MG 1 cap Orally bid for 30 Days Active Aspir-81 81 MG 1 tablet Orally Once a day for 30 day(s) Active Venlafaxine HCl ER 75 MG 1 capsule with food Orally Once a day for 30 Days Active Nitrofurantoin Monohyd Macro 100 MG 1 capsule at bedti me with food Orally bid for 7 day(s) May, Active LORazepam 0.5 MG 1 tab Orally BID prn, MDD 2 Code A for 30 Days Jul, Active Calcium 600 600 MG 1 tablet Orally Once a day Active Lunesta 2 MG 1 tablet immediately before bedtime Orally Once a day for 30 day(s) Jul, Active AndroGel 40.5 MG/2.5GM (1.62%) 4 pumps Transdermal Once a day fo r 30 Days Jul, Active Lyrica 200 MG 1 capsule Orally bid for 30 Days Jul, Active Atorvastatin Calcium 20 MG 1 tablet Orally Once a day for 90 day(s) Active Voltaren 1 % apply 1 gram to affected are a of neck Transdermal Q6 hours prn for 10 days Dec, Active Solu-CORTEF 100 MG as directed Injection ACT-O -VIAL prn acute adrenal insufficiency for 99 months Acti ve Atorvastatin Calcium 20 MG 1 tablet Orally Once a day for 90 day (s) Jul, Active Viagra 50 MG 1 tablet as needed Orally Once a day, prn for 30 day(s) Apr, Active Vitamin B 12 500 MCG 1 tablet Orally Once a day for 30 day(s) Active sulfaSALAzine 500 MG 1 tablet Orally Once a day f or 7 days, then BID for 90 day(s) Jan, Active Suboxone 8-2 MG 1 film under the tongue and allow to dissolve Fernandez blingual bid Active Levothyroxine Sodium 125 MCG 1 tablet Orally Daily for 30 Days Active Methylphenidate HCl ER (CD) 10 MG 1 cap Orally every morning for 30 Days Jul, Active Fludrocortisone Acetate 0.1 MG 1 tablet Orally Daily for 30 Days Active Vitamin D3 2000 UNIT 1 capsule Orally Once a day Active PROCEDURES No Information RESULTS No Results REASON FOR VISIT refills MEDICAL (GENERAL) HISTORY Type Description Date Medical History 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 Cheung except for medium hiatal hernia Medical History erectile dysfunction Medical History chronic MDD Medical History paroxysmal atrial fibrillati on (lone, [id number] 0)-August 04, 2010 probably secondary to narcotic withdrawal-July 2010 RST without reversibility-Dr. Chairez/August 2010 TTE normal-Dr. 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-[facility] Medical History leukocytosis, chronic Medical History cervical/thoracic/lumbar spo ndylsosi-minimal bulges L4-S1, bilateral L5/S1 NF narrowing by 10/2016 MRI MRI T8-T11 HNP without compression by MRI [...] Treatment Notes Treatm ent Clinical Notes Jul, Osteoarthritis of spine with radiculopathy, lumbar region (ICD-10 - M47.26) Jul, Primary insomnia (ICD-10 - F51.01) PLAN OF TREATMENT Medication Medication Name Sig Start Date Stop Date Lyrica 200 MG 1 capsule Orally bid for 30 Days Jul, Methylphenidate HCl ER (CD) 10 MG 1 cap Orally every morning for 30 Days Jul, AndroGel 40.5 MG/2.5GM (1.62%) 4 pumps Transdermal Once a da y for 30 Days Jul, Lunesta 2 MG 1 tablet immediately before bedtime Orally Once a day for 30 day(s) Jul, LORazepam 0.5 MG 1 tab Orally BID prn, MDD 2 Code A for 30 Days Jul, Next Appt Details Provider Name:Reuben Flores, 2021-08-10 0 4:30:00 PM, [address] [facility], , [place], [address], Insurance Providers Payer Name Payer Address Payer Phone Insured Name Patient Relati onship to Insured Coverage Start Date Coverage End Date MEDICARE Part A and B [address] [facility] [phone] JACKIE AMBROSE self
--- OUTSIDE RECORDS SUMMARY | 2021-09-03 03:48 | CCD ---
Author Author [facility] Organization [facility] ems Address Unknown Phone Unavailable Care Team Providers Care Casing Runner Name Role Phone Reuben Flores Unavailable PROBLEMS Type Condition ICD9-CM Code UPU91-PM Code Onset Dates Condition S tatus W/U Status Risk SNOMED Code Notes Problem Atrial fibrillation I48.91 Active confirmed 57915417 Problem Hypothyroidism E03.9 Active confirmed 46238 008 Problem Allergic rhinitis J30.9 Active confirmed 61 856863 Problem Carpal tunnel syndrome G56.00 Active confirmed 90289206 Problem Androgen deficiency E29.1 Active confirmed 33351804 Problem Benign prostatic hyperplasia with lower urinary tract symptoms N40.1 Active confirmed 237512419 Problem Osteoarthritis of spine with radiculopathy, lumbar region M47.26 Active confirmed 336901087 Problem Osteoarthritis of first carpometacarpal joint, unspecified M18.9 Active confirmed 83691530 Problem 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 Active confirmed 4485 97984 Problem Degeneration of cervical intervertebral disc M50.3 0 Active confirmed 27499891 Problem Impotence of organic origin N52.9 Active confirmed 911638365 Problem Depression F32.9 Active confirmed 259360525 Problem Osteopenia M85.80 Active confirmed 247347146 Problem Nephrolithiasis N20.0 Active confirmed 9557 0007 Problem Panic disorder F41.0 Active confirmed 85584 1005 Problem 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90 Active confirmed 8014303 Problem Vitamin D deficiency E55.9 Active confirmed 02344458 Problem Mixed hyperlipidemia E78.2 Active confirmed 685409452 Problem Opioid use disorder F11.99 Active confirmed 77655297 Problem Fatigue R53.83 Active confirmed 94947404 Problem Colon cancer screening Z12.11 Active confirmed 455066940 Problem Chronic fatigue R53.82 Active confirmed 8422 9001 ALLERGIES Allergen (clinical drug ingredient) Drug/Non Drug Allergy do cumented on EMR Reaction Allergy Type Onset Date Status Penicillin (For Allergies Use Only) agitation Drug Allerg y Active ENCOUNTERS from 1964 to 2021-06-23 Encounter Location Date Provider Diagnosis [place] [address] [facility] [phone] [place] [address] May, Reuben Flores 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 Sexual [...] Notes Start Da te End Date Status Vitamin D3 2000 UNIT 1 capsule Orally Once a day Active sulfaSALAzine 500 MG 1 tablet Orally Once a day f or 7 days, then BID for 90 day(s) Jan, Active Aspir-81 81 MG 1 tablet Orally Once a day for 30 day(s) Active Vitamin B 12 500 MCG 1 tablet Orally Once a day for 30 day(s) Active Calcium 600 600 MG 1 tablet Orally Once a day Active LORazepam 0.5 MG 1 tab Orally BID prn, MDD 2 Code A for 30 Days May, Active Lunesta 2 MG 1 tablet immediately before bedtime Orally Once a day for 30 day(s) Active Fludrocortisone Acetate 0.1 MG 1 tablet Orally Daily for 30 Days Active Venlafaxine HCl ER 75 MG 1 capsule with food Orally Once a day for 30 Days Active Lyrica 200 MG 1 capsule Orally bid for 30 Days May, Active Methylphenidate HCl ER (CD) 10 MG 1 cap Orally every morning for 30 Days May, Active Atorvastatin Calcium 20 MG 1 tablet Orally Once a day for 90 day (s) Jul, Active Solu-CORTEF 100 MG as directed Injection ACT-O -VIAL prn acute adrenal insufficiency for 99 months Acti ve Voltaren 1 % apply 1 gram to affected are a of neck Transdermal Q6 hours prn for 10 days Dec, Active Atorvastatin Calcium 20 MG 1 tablet Orally Once a day for 90 day(s) Active AndroGel 40.5 MG/2.5GM (1.62%) 4 pumps Transdermal Once a day fo r 30 Days May, Active Viagra 50 MG 1 tablet as needed Orally Once a day, prn for 30 day(s) Apr, Active Celecoxib 200 MG 1 cap Orally bid for 30 Days Active Levothyroxine Sodium 125 MCG 1 tablet Orally Daily for 30 Days Active Hydrocortisone 10 MG 1 in am / 2 in mid afterno on/ 11/01 in pm Orally TID for 90 day(s) Active Suboxone 8-2 MG 1 film under the tongue and allow to dissolve Fernandez blingual bid Active PROCEDURES No Information RESULTS No Results REASON FOR VISIT refill - out of med MEDICAL (GENERAL) HISTORY Type Description Date Medical History 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 Cheung except for medium hiatal hernia Medical History erectile dysfunction Medical History chronic MDD Medical History paroxysmal atrial fibrillati on (lone, [id number] 0)-August 04, 2010 probably secondary to narcotic withdrawal-July 2010 RST without reversibility-Dr. Chairez/August 2010 TTE normal-Dr. 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-[facility] Medical History leukocytosis, chronic Medical History [...] Notes Treatment Notes Treatm ent Clinical Notes May, Panhypopituitarism (ICD-10 - E23.0) May, Depression (ICD-10 - F32.9) May, Osteoarthritis of spine with radiculopathy, lumbar region (ICD-10 - M47.26) May, Hypothyroidism (ICD-10 - E03.9) PLAN OF TREATMENT Medication Medication Name Sig Start Date Stop Date Lyrica 200 MG 1 capsule Orally bid for 30 Days May, Levothyroxine Sodium 125 MCG 1 tablet Orally Daily for 30 Days Venlafaxine HCl ER 75 MG 1 capsule with food Orally Once a day f or 30 Days Fludrocortisone Acetate 0.1 MG 1 tablet Orally Daily for 30 Days Viagra 50 MG 1 tablet as needed Orally Once a day, pr n for 30 day(s) Apr, Atorvastatin Calcium 20 MG 1 tablet Orally Once a day for 90 day (s) Methylphenidate HCl ER (CD) 10 MG 1 cap Orally every morning for 30 Days May, Celecoxib 200 MG 1 cap Orally bid for 30 Days Solu-CORTEF 100 MG as directed Injection ACT-O -VIAL prn acute adrenal insufficiency for 99 months LORazepam 0.5 MG 1 tab Orally BID prn, MDD 2 Code A for 30 Days May, AndroGel 40.5 MG/2.5GM (1.62%) 4 pumps Transdermal Once a da y for 30 Days May, Hydrocortisone 10 MG 1 in am / /2 in mid afterno on/ 11/01 in pm Orally TID for 90 day(s) Suboxone 8-2 MG 1 film under the tongue and allow to dissolve Fernandez blingual bid Calcium 600 600 MG 1 tablet Orally Once a day Vitamin D3 2000 UNIT 1 capsule Orally Once a day Lunesta 2 MG 1 tablet immediately before bedtime Orally Once a day for 30 day(s) Aspir-81 81 MG 1 tablet Orally Once a day for 30 day(s) Next Appt Details Provider Name:Stephanie Ibarra, 06-24 08:15:00 AM, [address] [place] [address], , [place], [address], Provider Name:Reuben Flores, 2021-07-17 0 4:30:00 PM, [address] [place] [address], , [place], [address], Insurance Providers Payer Name Payer Address Payer Phone Insured Name Patient Relati onship to Insured Coverage Start Date Coverage End Date MEDICARE Part A and B [address] [facility] [address] [phone] JACKIE AMBROSE self
--- OUTSIDE RECORDS SUMMARY | 2021-09-03 03:48 | CCD ---
Author Author [facility] ems Organization [facility] ems Address Unknown Phone Unavailable Care Team Providers Care Toxicologist Name Role Phone Reuben Flores Unavailable PROBLEMS Type Condition ICD9-CM Code [id number] Code Onset Dates Condition S tatus W/U Status Risk SNOMED Code Notes Problem Impotence of organic origin N52.9 Active confirmed 329931892 Problem Atrial fibrillation I48.91 Active confirmed 37476096 Problem Degeneration of cervical intervertebral disc M50.3 0 Active confirmed 42434944 Problem Hypothyroidism E03.9 Active confirmed 17085 008 Problem Allergic rhinitis J30.9 Active confirmed 61 582042 Problem Osteoarthritis of spine with radiculopathy, lumbar region M47.26 Active confirmed 882706811 Problem Androgen deficiency E29.1 Active confirmed 69768257 Problem 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 Active confirmed 4485 59451 Problem Constipation, chronic K59.09 Active confirmed 869178453 Problem Osteopenia M85.80 Active confirmed 104886010 Problem Mixed hyperlipidemia E78.2 Active confirmed 504584421 Problem Panic disorder F41.0 Active confirmed 75796 1005 Problem Depression F32.9 Active confirmed 913785185 Problem Recurrent sinusitis J32.9 Active confirmed 605373696 Problem Nephrolithiasis N20.0 Active confirmed 9557 0007 Problem JOCELYN (obstructive sleep apnea) G47.33 Active confirm ed 42235301 Problem 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 Active confirmed 7472 8003 Problem Macrocytosis D75.89 Active confirmed 6244144 00 Problem Prostate cancer screening Z12.5 Active confirmed 789778018 Problem 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 Active confirmed 3 6397963 Problem 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 Active confirmed 51488345 Problem Vitamin D deficiency E55.9 Active confirmed 98820764 Problem Inflammatory arthritis M19.90 Active confirmed 4736983 Problem Benign prostatic hyperplasia with lower urinary tract symptoms N40.1 Active confirmed 276525489 Problem Primary insomnia F51.01 Active confirmed 397 2004 Problem Opioid use disorder F11.99 Active confirmed 38054160 Problem Fatigue R53.83 Active confirmed 97728955 Problem Colon cancer screening Z12.11 Active confirmed 235329775 Problem Chronic fatigue R53.82 Active confirmed 8422 9001 ALLERGIES Allergen (clinical drug ingredient) Drug/Non Drug Allergy do cumented on EMR Reaction Allergy Type Onset Date Status Penicillin (For Allergies Use Only) agitation Drug Allerg y Active ENCOUNTERS from 1965 to 2021-08-18 Encounter Location Date Provider Diagnosis [address] [phone] [place] [address] Jul, Reuben Flores Depression F32.9 ; Inflammat ory arthritis M19.90 and Primary insomnia F51.01 IMMUNIZATIONS Vaccine Route [...] Education Language: Question Answer Notes Languages spoken: Tajik Mosque: Question Answer Notes Mosque 33 None No church beliefs that would impact health care. Sexual [...] Notes Start Da te End Date Status Atorvastatin Calcium 20 MG 1 tablet Orally Once a day for 90 day (s) Jul, Active Calcium 600 600 MG 1 tablet Orally Once a day Active Methylphenidate HCl ER (CD) 10 MG 1 cap Orally bid for 30 Days Jul, Active AndroGel 40.5 MG/2.5GM (1.62%) 4 pumps Transdermal Once a day for 30 Days Active Suboxone 12-3 MG 1 film under the tongue and allow to dissolve Sublingual 1 film in a m 1/2 film in evening Activ e Fludrocortisone Acetate 0.1 MG 1 tablet Orally Daily for 30 Days Active sulfaSALAzine 500 MG 1 tablet Orally bid for 90 day(s) Jan, Active Hydrocortisone 10 MG 1 in am / /2 in mid afterno on/ /2 in pm Orally TID for 90 day(s) Active Aspir-81 81 MG 1 tablet Orally Once a day for 30 day(s) Active Vitamin D3 2000 UNIT 1 capsule Orally Once a day Active Lyrica 200 MG 1 capsule Orally bid for 30 Days Active Venlafaxine HCl ER 75 MG 1 capsule with food Orally Once a day for 30 Days Active Vitamin B 12 500 MCG 1 tablet Orally Once a day for 30 day(s) Active Celecoxib 200 MG 1 cap Orally Daily for 90 day(s) Active Atorvastatin Calcium 20 MG 1 tablet Orally Once a day for 90 day(s) Active LORazepam 0.5 MG 1 tab Orally BID prn, MDD 2 Code A for 30 Days Jul, Active Solu-CORTEF 100 MG as directed Injection ACT-O -VIAL prn acute adrenal insufficiency for 99 months Acti ve Levothyroxine Sodium 125 MCG 1 tablet Orally Daily for 30 Days Active Lunesta 2 MG 1 tablet immediately before bedtime Orally Once a day for 30 day(s) Jul, Active PROCEDURES No Information RESULTS No Results REASON FOR VISIT refill-celebrex, ativan and lunesta MEDICAL (GENERAL) HISTORY Type Description Date Medical History 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 Cheung except for medium hiatal hernia Medical History erectile dysfunction Medical History chronic MDD Medical History paroxysmal atrial fibrillati on (lone, [id number] 0)-August 04, 2010 probably secondary to narcotic withdrawal-July 2010 RST without reversibility-Dr. Chairez/August 2010 TTE normal-Dr. 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-[facility] Medical History leukocytosis, chronic Medical History [...] Treatment Notes Treatm ent Clinical Notes Jul, Depression (ICD-10 - F32.9) Jul, Inflammatory arthritis (ICD-10 - M19.90) Jul, Primary insomnia (ICD-10 - F51.01) PLAN OF TREATMENT Medication Medication Name Sig Start Date Stop Date Vitamin D3 2000 UNIT 1 capsule Orally Once a day Solu-CORTEF 100 MG as directed Injection ACT-O -VIAL prn acute adrenal insufficiency for 99 months Aspir-81 81 MG 1 tablet Orally Once a day for 30 day(s) Hydrocortisone 10 MG 1 in am / /2 in mid afterno on/ /2 in pm Orally TID for 90 day(s) Lyrica 200 MG 1 capsule Orally bid for 30 Days sulfaSALAzine 500 MG 1 tablet Orally bid for 90 day(s) Jan, Venlafaxine HCl ER 75 MG 1 capsule with food Orally Once a day f or 30 Days Methylphenidate HCl ER (CD) 10 MG 1 cap Orally bid for 30 Days 1 Jul, Levothyroxine Sodium 125 MCG 1 tablet Orally Daily for 30 Days Fludrocortisone Acetate 0.1 MG 1 tablet Orally Daily for 30 Days AndroGel 40.5 MG/2.5GM (1.62%) 4 pumps Transdermal Once a day fo r 30 Days Atorvastatin Calcium 20 MG 1 tablet Orally Once a day for 90 day (s) LORazepam 0.5 MG 1 tab Orally BID prn, MDD 2 Code A for 30 Days Jul, Lunesta 2 MG 1 tablet immediately before bedtime Orally Once a day for 30 day(s) Jul, Celecoxib 200 MG 1 cap Orally Daily for 90 day(s) Suboxone 12-3 MG 1 film under the tongue and allow to dissolve Sublingual 1 film in a m 1/2 film in evening Calcium 600 600 MG 1 tablet Orally Once a day Next Appt Details Provider Name:Reuben Flores, 2021-11-03 0 1:30:00 PM, [address] [facility], , [place], [address], Insurance Providers Payer Name Payer Address Payer Phone Insured Name Patient Relati onship to Insured Coverage Start Date Coverage End Date MEDICARE Part A and B [address] [facility] [address] [phone] JACKIE AMBROSE self
--- OUTSIDE RECORDS SUMMARY | 2021-09-03 03:48 | CCD ---
Author Author [facility] ems Organization [facility] ems Address Unknown Phone Unavailable Care Team Providers Care Hanging Flags Decorator Name Role Phone Reuben Flores Unavailable PROBLEMS Type Condition ICD9-CM Code [id number] Code Onset Dates Condition S tatus W/U Status Risk SNOMED Code Notes Problem Atrial fibrillation I48.91 Active confirmed 70515311 Problem Hypothyroidism E03.9 Active confirmed 29659 008 Problem Allergic rhinitis J30.9 Active confirmed 61 055659 Problem Carpal tunnel syndrome G56.00 Active confirmed 56017232 Problem Androgen deficiency E29.1 Active confirmed 61180500 Problem Benign prostatic hyperplasia with lower urinary tract symptoms N40.1 Active confirmed 440938542 Problem Osteoarthritis of spine with radiculopathy, lumbar region M47.26 Active confirmed 049854144 Problem Osteoarthritis of first carpometacarpal joint, unspecified M18.9 Active confirmed 02344618 Problem 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 Active confirmed 4485 25402 Problem Degeneration of cervical intervertebral disc M50.3 0 Active confirmed 45830200 Problem Impotence of organic origin N52.9 Active confirmed 969107437 Problem Depression F32.9 Active confirmed 370137770 Problem Osteopenia M85.80 Active confirmed 014803907 Problem Nephrolithiasis N20.0 Active confirmed 9557 0007 Problem Panic disorder F41.0 Active confirmed 78980 1005 Problem 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90 Active confirmed 4551815 Problem Vitamin D deficiency E55.9 Active confirmed 39197693 Problem Mixed hyperlipidemia E78.2 Active confirmed 553268314 Problem Opioid use disorder F11.99 Active confirmed 04489343 Problem Fatigue R53.83 Active confirmed 76668381 Problem Colon cancer screening Z12.11 Active confirmed 209970247 Problem Chronic fatigue R53.82 Active confirmed 8422 9001 ALLERGIES Allergen (clinical drug ingredient) Drug/Non Drug Allergy do cumented on EMR Reaction Allergy Type Onset Date Status Penicillin (For Allergies Use Only) agitation Drug Allerg y Active ENCOUNTERS from 1964 to 2021-07-21 Encounter Location Date Provider Diagnosis [facility] [address] [facility] [phone] [place] [address] Jul, Reuben Flores IMMUNIZATIONS Vaccine Route Administration Date Status Influenza [...] Education Language: Question Answer Notes Languages spoken: Moroccan Rastafarian: Question Answer Notes Rastafarian 33 None No zoroastrian beliefs that would impact health care. Sexual [...] Code A for 30 Days May, Active Aspir-81 81 MG 1 tablet Orally Once a day for 30 day(s) Active Voltaren 1 % apply 1 gram to affected are a of neck Transdermal Q6 hours prn for 10 days Dec, Active Methylphenidate HCl ER (CD) 10 MG 1 cap Orally every morning for 30 Days Jul, Active Vitamin B 12 500 MCG 1 tablet Orally Once a day for 30 day(s) Active Venlafaxine HCl ER 75 MG 1 capsule with food Orally Once a day for 30 Days Active Fludrocortisone Acetate 0.1 MG 1 tablet Orally Daily for 30 Days Active Lunesta 2 MG 1 tablet immediately before bedtime Orally Once a day for 30 day(s) Active Atorvastatin Calcium 20 MG 1 tablet Orally Once a day for 90 day (s) Jul, Active Atorvastatin Calcium 20 MG 1 tablet Orally Once a day for 90 day(s) Active Vitamin D3 2000 UNIT 1 capsule Orally Once a day Active Viagra 50 MG 1 tablet as needed Orally Once a day, prn for 30 day(s) Apr, Active sulfaSALAzine 500 MG 1 tablet Orally Once a day f or 7 days, then BID for 90 day(s) Jan, Active Lyrica 200 MG 1 capsule Orally bid for 30 Days May, Active Suboxone 8-2 MG 1 film under the tongue and allow to dissolve Fernandez blingual bid Active Levothyroxine Sodium 125 MCG 1 tablet Orally Daily for 30 Days Active Solu-CORTEF 100 MG as directed Injection ACT-O -VIAL prn acute adrenal insufficiency for 99 months Acti ve AndroGel 40.5 MG/2.5GM (1.62%) 4 pumps Transdermal Once a day fo r 30 Days May, Active Celecoxib 200 MG 1 cap Orally bid for 30 Days Active PROCEDURES No Information RESULTS No Results REASON FOR VISIT No Information MEDICAL (GENERAL) HISTORY Type Description Date Medical History 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 Cheung except for medium hiatal hernia Medical History erectile dysfunction Medical History chronic MDD Medical History paroxysmal atrial fibrillati on (lone, [id number] 0)-August 04, 2010 probably secondary to narcotic withdrawal-July 2010 RST without reversibility-Dr. Chairez/August 2010 TTE normal-Dr. 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-[facility] Medical History leukocytosis, chronic Medical History cervical/thoracic/lumbar [...] No Information FUNCTIONAL STATUS No Information ASSESSMENTS No Information PLAN OF TREATMENT Medication Medication Name Sig Start Date Stop Date LORazepam 0.5 MG 1 tab Orally BID prn, MDD 2 Code A for 30 Days May, AndroGel 40.5 MG/2.5GM (1.62%) 4 pumps Transdermal Once a da y for 30 Days May, Next Appt Details Provider Name:Reuben Flores, 2021-08-10 0 4:30:00 PM, [address] [facility], , [place], [address], Insurance Providers Payer Name Payer Address Payer Phone Insured Name Patient Relati onship to Insured Coverage Start Date Coverage End Date MEDICARE Part A and B [address] [facility] [address] [phone] JACKIE AMBROSE self
--- OUTSIDE RECORDS SUMMARY | 2021-09-03 03:48 | CCD ---
Author Author [facility] em[facility] Organization [facility] ems Address Unknown Phone Unavailable Care Team Providers Care Wooden Frame Builder Name Role Phone Stephanie Ibarra Unavailable PROBLEMS Type Condition ICD9-CM Code [id number] Code Onset Dates Condition S tatus W/U Status Risk SNOMED Code Notes Problem Atrial fibrillation I48.91 Active confirmed 33340405 Problem Hypothyroidism E03.9 Active confirmed 11458 008 Problem Allergic rhinitis J30.9 Active confirmed 61 903731 Problem Carpal tunnel syndrome G56.00 Active confirmed 95308592 Problem Androgen deficiency E29.1 Active confirmed 02441740 Problem Benign prostatic hyperplasia with lower urinary tract symptoms N40.1 Active confirmed 750520868 Problem Osteoarthritis of spine with radiculopathy, lumbar region M47.26 Active confirmed 140162263 Problem Osteoarthritis of first carpometacarpal joint, unspecified M18.9 Active confirmed 35080598 Problem 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 Active confirmed 4485 25139 Problem Degeneration of cervical intervertebral disc M50.3 0 Active confirmed 88179511 Problem Impotence of organic origin N52.9 Active confirmed 290236404 Problem Depression F32.9 Active confirmed 427872870 Problem Osteopenia M85.80 Active confirmed 336370091 Problem Nephrolithiasis N20.0 Active confirmed 9557 0007 Problem Panic disorder F41.0 Active confirmed 12788 1005 Problem 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90 Active confirmed 1186512 Problem Vitamin D deficiency E55.9 Active confirmed 21775181 Problem Mixed hyperlipidemia E78.2 Active confirmed 948564082 Problem Opioid use disorder F11.99 Active confirmed 34606799 Problem Fatigue R53.83 Active confirmed 92661249 Problem Colon cancer screening Z12.11 Active confirmed 681004737 Problem Chronic fatigue R53.82 Active confirmed 8422 9001 ALLERGIES Allergen (clinical drug ingredient) Drug/Non Drug Allergy do cumented on EMR Reaction Allergy Type Onset Date Status Penicillin (For Allergies Use Only) agitation Drug Allerg y Active ENCOUNTERS from 1965 to 2021-06-26 Encounter Location Date Provider Diagnosis [place] [id number] [facility] [phone] [place] [address] May, Stephanie Ibarra Upper respiratory tract infe ction, unspecified type J06.9 and Dysuria R30.0 IMMUNIZATIONS Vaccine Route Administration Date Status Influenza [...] Education Language: Question Answer Notes Languages spoken: Amharic Mormonism: Question Answer Notes Mormonism 33 None No christian beliefs that would impact health care. Sexual [...] REASON FOR REFERRAL No Information VITAL SIGNS Weight 174 lbs May, Weight-kg 78.93 kg May, Height 65 in May, BMI 28.95 kg/m2 May, Heart Rate 84 /min May, Respiratory Rate 18 /min May, Temperature 98 degrees Fahrenheit May, MEDICATIONS Medication SIG (Take, Route, Frequency, Duration) Notes Start Da te End Date Status Celecoxib 200 MG 1 cap Orally bid for 30 Days Active Levothyroxine Sodium 125 MCG 1 tablet Orally Daily for 30 Days Active Viagra 50 MG 1 tablet as needed Orally Once a day, prn for 30 day(s) Apr, Active Atorvastatin Calcium 20 MG 1 tablet Orally Once a day for 90 day (s) Jul, Active Aspir-81 81 MG 1 tablet Orally Once a day for 30 day(s) Active Hydrocortisone 10 MG 1 in am / 2 in mid afterno on/ 2 in pm Orally TID for 90 day(s) Active Atorvastatin Calcium 20 MG 1 tablet Orally Once a day for 90 day(s) Active Methylphenidate HCl ER (CD) 10 MG 1 cap Orally every morning for 30 Days May, Active Voltaren 1 % apply 1 gram to affected are a of neck Transdermal Q6 hours prn for 10 days Dec, Active Vitamin B 12 500 MCG 1 tablet Orally Once a day for 30 day(s) Active Solu-CORTEF 100 MG as directed Injection ACT-O -VIAL prn acute adrenal insufficiency for 99 months Acti ve Venlafaxine HCl ER 75 MG 1 capsule with food Orally Once a day for 30 Days Active Nitrofurantoin Monohyd Macro 100 MG 1 capsule at bedti me with food Orally bid for 7 day(s) May, Active Vitamin D3 2000 UNIT 1 capsule Orally Once a day Active Lunesta 2 MG 1 tablet immediately before bedtime Orally Once a day for 30 day(s) Active LORazepam 0.5 MG 1 tab Orally BID prn, MDD 2 Code A for 30 Days May, Active Lyrica 200 MG 1 capsule Orally bid for 30 Days May, Active Calcium 600 600 MG 1 tablet Orally Once a day Active Suboxone 8-2 MG 1 film under the tongue and allow to dissolve Fernandez blingual bid Active AndroGel 40.5 MG/2.5GM (1.62%) 4 pumps Transdermal Once a day fo r 30 Days May, Active sulfaSALAzine 500 MG 1 tablet Orally Once a day f or 7 days, then BID for 90 day(s) Jan, Active Fludrocortisone Acetate 0.1 MG 1 tablet Orally Daily for 30 Days Active PROCEDURES No Information RESULTS Component Value Reference Range Urinalysis, no Micro Reviewed date:06/24/2021 10:02:11 Interpretation: Performing Lab:Pending Sale To [facility], ,[place] [id number] Spec gravity 1.010 1.002 - 1.035 pH 5 5.0 - 9.0 Leukocyte trace Negative - Nitrate neg Negative - Protein neg Negative - mg/dl Glucose neg Negative - mg/dl Ketones trace Negative - mg/dl Urobili neg Normal - mg/dl Bilirubin neg Negative - Blood neg Negative - Internal QC Acceptable (Y/N) yes UA URINALYSIS Reviewed date:06/24/2021 17:43:25 Interpretation: Performing Lab:Pending sale to [facility] LABORATORY [address] [facility] [address] , ,[place] [id number] RESPIRATORY PANEL Reviewed date:06/24/2021 17:42:34 Interpretation: Performing Lab:Pending Sale To [facility], [facility] [address] [facility] [address] , ,[place] [id number] RESPIRATORY PANEL This respiratory PCR panel detects Influ luis fernando A H1, H3 and RESPIRATORY PANEL 2009 H1 viruses, Influenza B virus, Respiratory Syncytial Virus, RESPIRATORY PANEL Human metapneumovirus, Parai nfluenza virus 1, 2, 3 and 4, Adenovirus, RESPIRATORY PANEL Rhinovirus/Enterovirus, Raheem navirus HKU1, NL63, OC43, 229E and RESPIRATORY PANEL SARS-CoV-2 (COVID 19), Borde tella pertussis, Bordetella parapertussis, RESPIRATORY PANEL Mycoplasma pneumoniae and Chlamydia pneu moniae. RESPIRATORY PANEL RESPIRATORY PANEL NEGATIVE by MULTIPLEXED NUCLEIC ACID PCR RESPIRATORY PANEL SARS-CoV-2 (COVID 19) NEGATIVE - SARS-CoV-2 (COVID19) RESPIRATORY PANEL [facility] COVID AG (Point of Care) Reviewed date:06/25/2021 17:50:45 Interpretation: Performing Lab:Pending Sale To [facility], [facility] INTERFACE [address] [facility] [address] , ,[place] [id number] [facility] COVID ANTIGEN NEGATIVE NEGATIVE URINE CULTURE Reviewed date:06/26/2021 07:51:43 Interpretation: Performing Lab:Pending Sale To [facility], [facility] [address] [facility] [id number] , ,[place] [id number] REASON FOR VISIT Door D- ? 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 Cheung except for medium hiatal hernia Medical History erectile dysfunction Medical History chronic MDD Medical History paroxysmal atrial fibrillati on (lone, [id number] 0)-August 04, 2010 probably secondary to narcotic [...] Treatment Notes Treatm ent Clinical Notes May, Upper respiratory tract infe ction, unspecified type (ICD-10 - J06.9) Neg. COVID Sarah Neg. REsp. panel also May, Dysuria (ICD-10 - R30.0) Urine C&S grew out 60,000 col.s E. COli sens. to above May, Other 25" chart revie w, h&p, orders/plan PLAN OF TREATMENT Medication Medication Name Sig Start Date Stop Date Nitrofurantoin Monohyd Macro 100 MG 1 capsule at bedti fl with food Orally bid for 7 day(s) May, Treatment Notes Assessment Notes Clinical Notes Upper respiratory tract infection, unspecified type Neg. COVID SophiaNeg. REsp. panel also Dysuria Urine C&S grew out 6 0,000 col.s E. COli sens. to above Next Appt Details 07/17 c RET Reason: Provider Name:Reuben Flores, 2021-07-17 0 4:30:00 PM, [address] [facility], , [place], [address], Insurance Providers Payer Name Payer Address Payer Phone Insured Name Patient Relati onship to Insured Coverage Start Date Coverage End Date MEDICARE Part A and B [address] [facility] [id number] JACKIE AMBROSE self
--- OUTSIDE RECORDS SUMMARY | 2021-09-03 03:48 | CCD ---
Author Author [facility] Organization [facility] ems Address Unknown Phone Unavailable Care Team Providers Care Ged Teacher Name Role Phone Stephanie Ibarra Unavailable PROBLEMS Type Condition ICD9-CM Code [id number] Code Onset Dates Condition S tatus W/U Status Risk SNOMED Code Notes Problem Atrial fibrillation I48.91 Active confirmed 16992468 Problem Hypothyroidism E03.9 Active confirmed 54625 008 Problem Allergic rhinitis J30.9 Active confirmed 61 160441 Problem Carpal tunnel syndrome G56.00 Active confirmed 58693681 Problem Androgen deficiency E29.1 Active confirmed 84707493 Problem Benign prostatic hyperplasia with lower urinary tract symptoms N40.1 Active confirmed 561919801 Problem Osteoarthritis of spine with radiculopathy, lumbar region M47.26 Active confirmed 174134436 Problem Osteoarthritis of first carpometacarpal joint, unspecified M18.9 Active confirmed 58782947 Problem 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 Active confirmed 4485 60430 Problem Degeneration of cervical intervertebral disc M50.3 0 Active confirmed 09881023 Problem Impotence of organic origin N52.9 Active confirmed 978139924 Problem Depression F32.9 Active confirmed 387315231 Problem Osteopenia M85.80 Active confirmed 340199153 Problem Nephrolithiasis N20.0 Active confirmed 9557 0007 Problem Panic disorder F41.0 Active confirmed 24224 1005 Problem 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90 Active confirmed 8178063 Problem Vitamin D deficiency E55.9 Active confirmed 74189832 Problem Mixed hyperlipidemia E78.2 Active confirmed 871358155 Problem Opioid use disorder F11.99 Active confirmed 57453152 Problem Fatigue R53.83 Active confirmed 96730870 Problem Colon cancer screening Z12.11 Active confirmed 480954410 Problem Chronic fatigue R53.82 Active confirmed 8422 9001 ALLERGIES Allergen (clinical drug ingredient) Drug/Non Drug Allergy do cumented on EMR Reaction Allergy Type Onset Date Status Penicillin (For Allergies Use Only) agitation Drug Allerg y Active ENCOUNTERS from 1965 to 2021-06-04 Encounter Location Date Provider Diagnosis [place] [id number] [facility] [phone] [place] [address] May, Stephanie Ibarra IMMUNIZATIONS Vaccine Route Administration Date Status Influenza [...] Education Language: Question Answer Notes Languages spoken: [place] Samaritan: Question Answer Notes Samaritan 33 None No faith beliefs that would impact health care. Sexual [...] Notes Start Da te End Date Status Calcium 600 600 MG 1 tablet Orally Once a day Active Vitamin D3 2000 UNIT 1 capsule Orally Once a day Active Lunesta 2 MG 1 tablet immediately before bedtime Orally Once a day for 30 day(s) Active Methylphenidate HCl ER (CD) 10 MG 1 cap Orally every morning for 30 Days May, Active Aspir-81 81 MG 1 tablet Orally Once a day for 30 day(s) Active LORazepam 0.5 MG 1 tab Orally BID prn, MDD 2 Code A for 30 Days Active Celecoxib 200 MG 1 cap Orally bid for 30 Days Active Fludrocortisone Acetate 0.1 MG 1 tablet Orally Daily for 30 Days Active Solu-CORTEF 100 MG as directed Injection ACT-O -VIAL prn acute adrenal insufficiency for 99 months Acti ve Hydrocortisone 10 MG 1 in am / /2 in mid afterno on/ 2 in pm Orally TID for 90 day(s) Active Voltaren 1 % apply 1 gram to affected are a of neck Transdermal Q6 hours prn for 10 days Dec, Active Viagra 50 MG 1 tablet as needed Orally Once a day, prn for 30 day(s) Apr, Active AndroGel 40.5 MG/2.5GM (1.62%) 4 pumps Transdermal Once a day fo r 30 Days May, Active Levothyroxine Sodium 125 MCG 1 tablet Orally Daily for 30 Days Active Atorvastatin Calcium 20 MG 1 tablet Orally Once a day for 90 day(s) Active Atorvastatin Calcium 20 MG 1 tablet Orally Once a day for 90 day (s) Jul, Active Suboxone 8-2 MG 1 film under the tongue and allow to dissolve Fernandez blingual bid Active Lyrica 200 MG 1 capsule Orally [...] then BID for 90 day(s) Jan, Active PROCEDURES No Information RESULTS No Results REASON FOR VISIT refills MEDICAL (GENERAL) HISTORY Type Description Date Medical History 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 Cheung except for medium hiatal hernia Medical History erectile dysfunction Medical History chronic MDD Medical History paroxysmal atrial fibrillati on (lonhodan, [id number] 0)-August 04, 2010 probably secondary to narcotic withdrawal-July 2010 RST without reversibility-Dr. Chairez/August 2010 TTE normal-Dr. 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-[facility] Medical History leukocytosis, chronic Medical History [...] Medication Name Sig Start Date Stop Date Hydrocortisone 10 MG 1 in am / /2 in mid afterno on/ 2 in pm Orally TID for 90 day(s) Venlafaxine HCl ER 75 MG 1 capsule with food Orally Once a day f or 30 Days Solu-CORTEF 100 MG as directed Injection ACT-O -VIAL prn acute adrenal insufficiency for 99 months Fludrocortisone Acetate 0.1 MG 1 tablet Orally Daily for 30 Days Levothyroxine Sodium 125 MCG 1 tablet Orally Daily for 30 Days Atorvastatin Calcium 20 MG 1 tablet Orally Once a day for 90 day (s) Suboxone 8-2 MG 1 film under the tongue and allow to dissolve Fernandez blingual bid Lyrica 200 MG 1 capsule Orally bid for 30 Days AndroGel 40.5 MG/2.5GM (1.62%) 4 pumps Transdermal Once a da y for 30 Days May, LORazepam 0.5 MG 1 tab Orally BID prn, MDD 2 Code A for 30 Days Viagra 50 MG 1 tablet as needed Orally Once a day, pr n for 30 day(s) Apr, Methylphenidate HCl ER (CD) 10 MG 1 cap Orally every morning for 30 Days May, Vitamin D3 2000 UNIT 1 capsule Orally Once a day Aspir-81 81 MG 1 tablet Orally Once a day for 30 day(s) Calcium 600 600 MG 1 tablet Orally Once a day Celecoxib 200 MG 1 cap Orally bid for 30 Days Lunesta 2 MG 1 tablet immediately before bedtime Orally Once a day for 30 day(s) Next Appt Details Provider Name:Reuben Gaoer, 2021-07-17 0 4:30:00 PM, [address] [facility], , [place], [address], Insurance Providers Payer Name Payer Address Payer Phone Insured Name Patient Relati onship to Insured Coverage Start Date Coverage End Date MEDICARE Part A and B [address] [facility] [id number] JACKIE AMBROSE self
--- OUTSIDE RECORDS SUMMARY | 2021-09-03 03:48 | CCD ---
Author Author [facility] ems Organization [facility] ems Address Unknown Phone Unavailable Care Team Providers Care Rod Finisher Name Role Phone Reuben Flores Unavailable PROBLEMS Type Condition ICD9-CM Code UIS04-MH Code Onset Dates Condition S tatus W/U Status Risk SNOMED Code Notes Problem Impotence of organic origin N52.9 Active confirmed 168710239 Problem Atrial fibrillation I48.91 Active confirmed 18999190 Problem Degeneration of cervical intervertebral disc M50.3 0 Active confirmed 16478984 Problem Hypothyroidism E03.9 Active confirmed 27302 008 Problem Allergic rhinitis J30.9 Active confirmed 61 343932 Problem Osteoarthritis of spine with radiculopathy, lumbar region M47.26 Active confirmed 030937711 Problem Androgen deficiency E29.1 Active confirmed 34207406 Problem 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 Active confirmed 4485 78275 Problem Constipation, chronic K59.09 Active confirmed 335240595 Problem Osteopenia M85.80 Active confirmed 304917197 Problem Mixed hyperlipidemia E78.2 Active confirmed 436567066 Problem Panic disorder F41.0 Active confirmed 79419 1005 Problem Depression F32.9 Active confirmed 376834136 Problem Recurrent sinusitis J32.9 Active confirmed 254152859 Problem Nephrolithiasis N20.0 Active confirmed 9557 0007 Problem JOCELYN (obstructive sleep apnea) G47.33 Active confirm ed 91484223 Problem 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 Active confirmed 7472 8003 Problem Macrocytosis D75.89 Active confirmed 5839859 00 Problem Prostate cancer screening Z12.5 Active confirmed 785273927 Problem 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 Active confirmed 3 9587240 Problem 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 Active confirmed 74565495 Problem Vitamin D deficiency E55.9 Active confirmed 75392112 Problem Inflammatory arthritis M19.90 Active confirmed 8413855 Problem Benign prostatic hyperplasia with lower urinary tract symptoms N40.1 Active confirmed 359098143 Problem Primary insomnia F51.01 Active confirmed 397 2004 Problem Opioid use disorder F11.99 Active confirmed 99864784 Problem Fatigue R53.83 Active confirmed 28650810 Problem Colon cancer screening Z12.11 Active confirmed 925002472 Problem Chronic fatigue R53.82 Active confirmed 8422 9001 ALLERGIES Allergen (clinical drug ingredient) Drug/Non Drug Allergy do cumented on EMR Reaction Allergy Type Onset Date Status Penicillin (For Allergies Use Only) agitation Drug Allerg y Active ENCOUNTERS from 1965 to 2021-08-12 Encounter Location Date Provider Diagnosis [address] [phone] [place] [address] 11 Jul, 2021 Reuben Mark Impotence of organic origin N52.9 ; Inflammatory arthritis M19.90 ; 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 ; 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 ; Fatigue R53.83 ; Depression F32.9 ; Androgen deficiency E29.1 ; Mixed hyperlipidemia E78.2 ; Opioid use disorder F11.99 ; Osteopenia M85.80 ; 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 ; Weakness R53.1 ; JOCELYN (obstructive sleep apnea) G47.33 ; Primary insomnia F51.01 ; Constipation, chronic K59.09 ; Colon cancer screening Z12.11 ; Macrocytosis D75.89 ; Prostate cancer screening Z12.5 ; Osteoarthritis of spine with radiculopathy, lumbar region M47.26 ; Recurrent sin usitis J32.9 ; Nephrolithiasis N20.0 ; Panic disorder F41.0 ; Benign prostatic hyperplasia with lower urinary tract symptoms N40.1 ; Vitamin D deficiency E55.9 ; Allergic rhinitis J30.9 ; Hypothyroidism E03.9 ; Atrial fibrillation I48.91 and Degeneration of cervical intervertebral disc M50.30 IMMUNIZATIONS Vaccine Route Administration Date Status Influenza [...] Education Language: Question Answer Notes Languages spoken: Hungarian Cheondoism: Question Answer Notes Cheondoism 33 None No zoroastrian beliefs that would [...] FOR REFERRAL No Information VITAL SIGNS Weight 170 lbs Jul, Weight-kg 77.11 kg Jul, Height 65 in Jul, BMI 28.29 kg/m2 Jul, Heart Rate 77 /min Jul, Respiratory Rate 18 /min Jul, Temperature 98.3 degrees Fahrenheit Jul, Oximetry 97% Jul, Blood pressure systolic 122 mm Hg Jul, Blood pressure diastolic 78 mm Hg Jul, MEDICATIONS Medication SIG (Take, Route, Frequency, Duration) Notes Start Da te End Date Status Atorvastatin Calcium 20 MG 1 tablet Orally Once a day for 90 day (s) Jul, Active Celecoxib 200 MG 1 cap Orally Daily for 90 day(s) Active Methylphenidate HCl ER [...] 1 capsule Orally Once a day Active LORazepam 0.5 MG 1 tab Orally BID prn, MDD 2 Code A for 30 Days Active Venlafaxine HCl ER 75 MG 1 capsule with food Orally Once a day for 30 Days Active Vitamin B 12 500 MCG 1 tablet Orally Once a day for 30 day(s) Active Lyrica 200 MG 1 capsule Orally bid for 30 Days Active Atorvastatin Calcium 20 MG 1 tablet Orally Once a day for 90 day(s) Active Lunesta 2 MG 1 tablet immediately before bedtime Orally Once a day for 30 day(s) Active Solu-CORTEF 100 MG as directed Injection ACT-O -VIAL prn acute adrenal insufficiency for 99 months Acti ve Levothyroxine Sodium 125 MCG 1 tablet Orally Daily for 30 Days Active Calcium 600 600 MG 1 tablet Orally Once a day Active PROCEDURES No Information RESULTS No Results REASON FOR VISIT follow up MEDICAL (GENERAL) HISTORY Type Description Date Medical History 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 Cheung except for medium hiatal hernia Medical History erectile dysfunction Medical History chronic MDD Medical History paroxysmal atrial fibrillati on (lone, [id number] 0)-August 04, 2010 probably secondary to narcotic withdrawal-July 2010 RST without reversibility-Dr. Chairez/August 2010 TTE normal-Dr. 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-[facility] Medical History leukocytosis, chronic Medical History [...] Treatment Notes Treatm ent Clinical Notes Jul, Impotence of organic origin (ICD-10 - N52.9) 05/05/21 silden 50 tiral Jul, Inflammatory arthritis (ICD-10 - M19.90) on SSZ 500 BID, brian 200 C: SSZ 500 BID to 1000 BID, LEF (check FS HERBERT) 08/19/20 -TB Gold / 07/06/20 hepBsAn/C Ab 08/10/21 SDAI 18 (worst B wrist) 03/10/21 CRP/ESR 1.1/8, C3/4 119/46 02/17/21 +SSZ 500 BID s benefit 04/29/20 increased test, brian 200 QD to BID and held atorva 04/15/20 since ~12/2019 increased AM stiffness of B wrists, knee, ankles lasting ~60 minutes CCP: (20-39: weak+) -03/10/21 14, 04/15/20 18 RF: Azra: -03/10/21 dsDNA: ssDNA: histone: U1 PETROLEUM [employer]PERATOR: (0-0.9) (DULCE) -03/10/21 Sm: (DULCE) ribosomal P: Ro/La: -03/10/21 saliva protein 1: (>25) -03/10/21 parotid spec prot: (>25) -03/10/21 carbonic anhydrase : (>25) -03/10/21 [place]ola-1: scl-70/lexi: -03/10/21 scl-100/PM: centromere/KI: LA: aCL IgGAM: B2GP IgGAM: DAC/haptoglobin: HLA B27: -02/10/18 myositis panel: CK: Lyme IgG/M: -02/10/18 <0.91 G6PD (SSZ/HCQ): 03/10/21 302 (127-427) 11 Jul, 2021 ADD (attention deficit disor giovanni) without hyperactivity (ICD-10 - F98.8) on MP 10 BID 08/10/21 increased 10 qAM to BID given ~5H benefit 03/13/21 improved concentration c MP 5 BID s side effect, but wearing off p 2-3H; ergo, 04/28/21 changed to ER 10 qAM 10/17/20 pregalbin 300 BID to 200 BID and awilda 0.5 TID to 0.5 BID and + MP 5 BID to improve fatigue and concentration (2 ADD) (markedely increased fatigue sx/decreased concentraion ~time of Suboxone initiation in 12/2018, but px states he CANNOT wean dose) (adequate repletion of LT4, cortisol and test) Jul, Hand arthritis (ICD-10 - M19.049) rx as per IA proximal row jhlwtystds-Cxzszam-Qotqsfk 09/28/18 + Perc 5 BID prn disp 10 ([place] was "too nauseating") 09/12/18 established, felt R SLAC wrist c advanced RS arthritis, SL widening; therefore, offered prox row caprectomy vs fusion-RS to 10/04/18 sp 10/2018 carpectomy c minimal improvement 02/09/18 progressive new onset AM stiffness/painful synovitis symmetric B wrist, MCJ, PIPJ, elbow and shoulder and ankle since ~10/2017; therefore, + celecox 200 and R RCJ 10 Kenalog s benefit and referred to Dr. Montenegro Hand [facility] 12/2017 R hand xray c moderate-advnaced RCJ OA, chondrocalcinosis Jul, Fatigue (ICD-10 - R53.83) lodvq-clwubtyru-VHB, medications, mood (some days worse then others, feels well until ~midday) as per ADD fatigue>>weakness, DS, generalized weakness, increased sleeping (12-14H QD, baseline ~6H), feels rested for ~4H (then fatigue) 10/17/19 NOCOX (c Minda's) noc ox c RDI 2.5 over 10H testing; therefore, 11/20/19 + fludro 0.1 qAM c "good" improvement 09/25/19 -AchR bi/bl/mod Ab/MUSK1/SM Ab, Lyme, trep Ab, HIV, SPEP/UPEP, A1AT, < 0.3/3, CPK 236, -Minerva 11 Jul, 2021 Depression (ICD-10 - F32.9) Stable on venla ER 75 qAM, awilda 0.5 BID prn (only using 2x qW) 10/18/19 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 Lui () 12/2016 SS increased to 150, but more fatigued; therefore, decreased back to 75 09/2016 increased to 75 and started lorazepam 0.5 TID prn (moreso for narcotic axnxiety wd) and referred to [facility] Jul, Androgen deficiency (ICD-10 - E29.1) pump bottle 88 gm is 60 pumps (this is why he gets packets instead of pump) 11/26/20 608/13 on 60.75 09/11/20 increased to 60.75 (but dispense 2 bottles) 08/19/20 317 on 40.5 04/15/20 82, 0.7 (using packets, ? getting all out); therefore, increased to 40.5 (via pump) 07/2019 797, 12 on 20.25 08/2018 1241 therefore, decreased from 40.5 back to 20.25 (charly given erythro and elevated PSA) 04/2018 424, prl 9 04/2016 451, 2.3 on AndroGel 20.25 QD hgb as per macro PSA as per prostate cancer screening Jul, Mixed hyperlipidemia (ICD-10 - E78.2) 04/15/20 62/62/54, CK 362 on atorva 20; but 04/29/20 held as per hand OA 07/2019 51/70/130 on atova 20 12/2018 68/66/163, 151, 0.6 01/2018 105/57/151, 176, 0.5 07/2017 50/61/159, 244, <0.3 on atorva 20 05/2017 restarted atorva 20 given no change of myalgia off x 3M 07/2017 normal LFTs 07/2017 A1C 5.3 Jul, Opioid use disorder (ICD-10 - F11.99) on bup/nal 10/02 1 in AM, 1/[address] Sarah h/o recurrent prescription opioid abuse, but c chronic pain syndrome (aggressive multi-joint OA) 03/2019 Dr. Sarah assumed MAT rx 01/25/19 since ~08/2018 using ascending dosages of kratom (white maeng da kratom powder) obtained on-line-now up to 2 tsp TID (~15 gm QD which would be considered at moderate-high amt) -initially started for "pain" but now having withdrawal sx if he does not take. Wants to stop, but admits OUD and would like long-term rx c bup/nal. He will bring in ALL his current supply of kratom and will have taken last dose 01/25/19 midday, start clonidine 0.1 TID prn withdrawal sx and bup/nalox on 01/29/19. Jul, Osteopenia (ICD-10 - M85.80) recheck BMD 03/202304/25/20 DXA -0.3/-0.2/2 c 08/06/% change cw 12/2016; therefore, CCR 12/2016 -1.5/-1.3/1.3 c 0.1/0/8% change c/w 07/2013; therefore, CCR 07/2013 BMD -1.5/-1.3/0.5 c -8.4/-5.1/0.3% change c/w 07/2011 11 Jul, 2021 Panhypopituitarism (ICD-10 - E23.0) No signs/symptoms of insufficiency on HC , fludro 0.1 qAM (goal PRA <5 ng/mL/H p fludro) has emergency Solu-Cortef Act-O-Vial 03/10/21 139, 4.4 04/15/20 143, 4.9 c PRA 0.8 08/01/19 140, 4.3 04/2018 142, 4.6 c stable BP on HC 02/2017 SS decreased back to 01/13/17 143, 4.6, on , but increased fatigue over last 10D, therefore, increased to s improvement of fatigue 10/2016 142, 4.6-11/02/16 switched back to HC 19/08/10 given more physiologic, doesn't require liver conversion and less likely to cause iatrogenic [place]'s syndrome) Jul, Weakness (ICD-10 - R53.1) as per fatigue Jul, JOCELYN (obstructive sleep apnea) (ICD-10 - G47.33) Continue CPAP 13 (initially 9) cm H20 via FFM 10/17/19 nocox (patricia Perla's) noc ox c RDI 2.5 over 10H testing; follows with Rech[facility] Jul, Primary insomnia (ICD-10 - F51.01) Stable on Lunesta 2 QHS Contingency: praz to 6-10, risper 0.5-2 04/2018 + prazosin 1 QHS 07/2016 changed Ambien 5 to Lunesta 2 qhs which worked better in past Jul, Constipation, chronic (ICD-10 - K59.09) Stable on high fiber diet Jul, Colon cancer screening (ICD-10 - Z12.11) 08/2019 repeat colon-W Jul, Macrocytosis (ICD-10 - D75.89) 07/2019 16.7, 93 04/2018 17.0, 96 01/2018 hgb stable at 16.1, 94, 6.6, 252K 07/2018 B12 754 09/25/19 SPEP WNL, Serjio s MCB Jul, Prostate cancer screening (ICD-10 - Z12.5) no h/o prostate bx 07/2019 3.1 08/2018 5.1 04/2018 3.7 01/2018 3.2 12/2016 1.9 04/2016 3.0 01/2016 prostatitis c PSA 22, felt 2 prostatitis and rxed c 2M abx by [place] in [place] Jul, Osteoarthritis of spine with radiculopathy, lumbar region (ICD-10 - M47.26) Stable on pregalbin 200 BID 09/2018 increased to 200 BID to 200 TID given RUE neuropathic pain from hand OA 05/2017 increased to Lyrica 100 BID to 200 BID and referred to Reanna who 07/19/17 performed L5/S1 LESI c ~30D pain free, but now back to baseline pain 04/2017 SS started nortriptyline 10 TID s benefit and felt very tired 10/11/16 Celebrex 200 BID held 2 dyspepsia and held baclofen 10 TID prn given no benefit; started Lyrica 50 BID (then to 50 TID) and repeated MRI as per , then increased to 75 TID c improvment 09/30-04/[facility] for withdrawal from [facility] 15 BID, Percocet 10 QID 08/06/16 UDS + for only morphine, not oxycodone 02/2014 last visit prior leaving for [place] was Percocet 7.5 QID c MSO4 ER 30 QD 07/2015 [facility] Jul, Recurrent sinusitis (ICD-10 - J32.9) No recurrent symptoms treatment as per AR also/PCN anaphalaxis 12/02/16 levo 14D 11/09- levo 14D c Flonase NS c only 3D clearance off medication Jul, Nephrolithiasis (ICD-10 - N20.0) Patient remains asymptomatic 10/2016 L ESWL 08/2016 11 mm L kidney NO stone for TBA ESWL per Ashley Jul, Panic disorder (ICD-10 - F41.0) treatment as per MDD Jul, Benign prostatic hyperplasia with lower urinary tract symptoms (ICD-10 - N40.1) No recurrent symptoms 02/2016 B renal US (done in [place]) c minimal L hydro 10.7 L, 9.3 R-no h/o stones Jul, Vitamin D deficiency (ICD-10 - E55.9) 07/2019 78, 9.2 08/2018 81, 8.8, 43 01/2018 90, 8.6, 30 12/2016 47, 9.1, PTH 26 on D3 2K Jul, Allergic rhinitis (ICD-10 - J30.9) Stable off FP 2 qAM, awilda 10 Jul, Hypothyroidism (ICD-10 - E03.9) 11/26/20 FT4 ED 1.1 on LT4 125 04/15/20 FT4 ED 1.6, TT3 158 07/2019 FT4 1.2 08/2018 1.1 on 125 07/2016 FT4 1.1, TT3 116 on LT4 125 04/2016 FT4 1.8; therefore, decreased LT4 150 to 125 Jul, Atrial fibrillation (ICD-10 - I48.91) Patient remains asymptomatic paroxysmal c severe stress [id number] 0; therefore, only on asa 81 no chronotropic medications needed Jul, Degeneration of cervical intervertebral disc (IC D-10 - M50.30) treatment as per lumbar DJD Jul, Other Prevention Guide lines, Men Ages 50 to 64 material was printed PLAN OF TREATMENT Medication Medication Name Sig Start Date Stop Date Vitamin D3 2000 UNIT 1 capsule Orally Once a day Solu-CORTEF 100 MG as directed Injection ACT-O -VIAL prn acute adrenal insufficiency for 99 months Aspir-81 81 MG 1 tablet Orally Once a day for 30 day(s) Hydrocortisone 10 MG 1 in am / /2 in mid afterno on11/01 in pm Orally TID for 90 day(s) LORazepam 0.5 MG 1 tab Orally BID prn, MDD 2 Code A for 30 Days sulfaSALAzine 500 MG 1 tablet Orally bid for 90 day(s) Jan, 021 Venlafaxine HCl ER 75 MG 1 capsule with food Orally Once a day f or 30 Days Methylphenidate HCl ER (CD) 10 MG 1 cap Orally bid for 30 Days Jul, Levothyroxine Sodium 125 MCG 1 tablet Orally Daily for 30 Days Fludrocortisone Acetate 0.1 MG 1 tablet Orally Daily for 30 Days AndroGel 40.5 MG/2.5GM (1.62%) 4 pumps Transdermal Once a day fo r 30 Days Atorvastatin Calcium 20 MG 1 tablet Orally Once a day for 90 day (s) Lunesta 2 MG 1 tablet immediately before bedtime Orally Once a day for 30 day(s) Calcium 600 600 MG 1 tablet Orally Once a day Lyrica 200 MG 1 capsule Orally bid for 30 Days Suboxone 12-3 MG 1 film under the tongue and allow to dissolve Sublingual 1 film in a m 1/2 film in evening Celecoxib 200 MG 1 cap Orally Daily for 90 day(s) Treatment Notes Assessment Notes Clinical Notes Primary insomnia Stable on Lunesta 2 QHSContingency: praz to 6-10, risper 0.5- + prazosin 1 QHS07/2016 changed Ambien 5 to Lunesta 2 qhs which worked better in past JOCELYN (obstructive sleep apnea) Continue C PAP 13 (initially 9) cm H20 via FFM112/18/18 nocox (patricia Perla's) noc ox c RDI 2.5 over 10H testing;follows with Rech[facility] Colon cancer screening 08/2019 repeat co [place] Constipation, chronic Stable on high fib er diet Prostate cancer screening no h/o prostat e bx07/2019 3.111/2017 5. 3. 3. 1. 3.01/2016 prostatitis c PSA 22, felt 2 prostatitis and rxed c 2M abx by Urology in [place] Macrocytosis 07/2019 16.7, 937/20 18 17.0, 964/2018 hgb stable at 16.1, 94, 6.6, 252K10/2018 B12 02566/ SPEP WNL, sIFE s MCB Recurrent sinusitis No recurrent symptom streatment as per AR also/PCN anaphalaxis12/02/16 levo 14D1/10- levo 14D c Flonase NS c only 3D clearance off medication Osteoarthritis of spine with radiculopathy, lumbar region Stable on pregalbin 200 BID09/2018 increased to 200 BID to 200 TID given RUE neuropathic pain from hand OA05/2017 increased to Lyrica 100 BID to 200 BID and referred to Reanna who 07/19/17 performed L5/S1 LESI c ~30D pain free, but now back to baseline pain04/2017 SS started nortriptyline 10 TID s benefit and felt very tired10/11/16 Celebrex 200 BID held 2 dyspepsia and held baclofen 10 TID prn given no benefit; started Lyrica 50 BID (then to 50 TID) and repeated MRI as per , then increased to 75 TID c zsdyygpmnr15/1-04/15 [facility] hospitalization for withdrawal from [facility] 15 BID, Percocet 10 QID1 UDS + for only morphine, not oxycodone02/2014 last visit prior leaving for [place] was Percocet 7.5 QID c MSO4 ER 30 QD07/2015 B RFA done [facility] s benefit Weakness as per fatigue Panhypopituitarism No signs/symptoms of insufficiency on HC , fludro 0.1 qAM (goal PRA <5 ng/mL/H p fludro)has emergency Solu-Cortef Act-O-Vial03/10/21 139, 4. 143, 4.9 c PRA 0.810/12/19 140, 4. 142, 4.6 c stable BP on HC 08/04/55 SS decreased back to 08/04/53/ 143, 4.6, on , but increased fatigue over last 10D, therefore, increased to s improvement of fatigue10/2016 142, 4.6-11/02/16 switched back to HC 19/08/10 given more physiologic, doesn't require liver conversion and less likely to cause iatrogenic Radha's syndrome) Allergic rhinitis Stable off FP 2 qAM, awilda 10 Impotence of organic origin 05/05/21 silde n 50 tiral Vitamin D deficiency 07/2019 78, 9.211/2 018 81, 8.8, 434 90, 8.6, 302/2017 47, 9.1, PTH 26 on D3 2K Inflammatory arthritis on SSZ 500 BID, c martin 200C: SSZ 500 BID to 1000 BID, LEF (check FS HERBERT)08/19/20 -TB Gold / 07/06/20 hepBsAn/C Ab08/10/21 SDAI 18 (worst B wrist)03/10/21 CRP/ESR 1.1/8, C3/4 119/464/ +SSZ 500 BID s benefit04/29/20 increased test, brian 200 QD to BID and held atorva04/15/20 since ~12/2019 increased AM stiffness of B wrists, knee, ankles lasting ~60 minutesCCP: (20-39: weak+) -03/10/21 14, 04/15/20 18RF:Azra: -03/10/21dsDNA:ssDNA:histone:U1 PETROLEUM [employer] OPERATOR: (0- 0.9) (DULCE) -03/10/21Sm: (DULCE)ribosomal P:Ro/La: -03/10/21saliva protein 1: (>25) - 03/10/21parotid spec prot: (>25) -03/10/21carbonic anhydrase : (>25) -03/10/21Jo-1:scl-70/lexi: -03/10/21scl-100/PM:centromere/KI:LA:aCL IgGAM:B2GP IgGAM:DAC/haptoglobin:HLA B27: -02/10/18myositis panel:CK:Lyme IgG/M: -02/10/18 <0.91G6PD (SSZ/HCQ): 03/10/21 302 (127-427) Atrial fibrillation Patient remains asym ptomaticparoxysmal c severe [id number] 0; therefore, only on asa 81no chronotropic medications needed ADD (attention deficit disorder) without hyperactivity on MP 10 BID08/10/21 increased 10 qAM to BID given ~5H benefit03/13/21 improved concentration c MP 5 BID s side effect, but wearing off p 2-3H; ergo, 04/28/21 changed to ER 10 qAM112/18/19 pregalbin 300 BID to 200 BID and awilda 0.5 TID to 0.5 BID and + MP 5 BID to improve fatigue and concentration (2 ADD)(markedely increased fatigue sx/decreased concentraion ~time of Suboxone initiation in 12/2018, but px states he CANNOT wean dose) (adequate repletion of LT4, cortisol and test) Hypothyroidism 11/26/20 FT4 ED 1.1 o n LT4 FT4 ED 1.6, TT3 0043507/2019 FT4 1.211/2018 1.1 on 11701 FT4 1.1, TT3 116 on LT4 1257/2015 FT4 1.8; therefore, decreased LT4 150 to 125 Hand arthritis rx as per IAproximal row pbcgscrivt-Vwkjcir-Wpvzbmq90/29/18 + Perc 5 BID prn disp 10 ([place] was "too nauseating")09/12/18 established, felt R SLAC wrist c advanced RS arthritis, SL widening; therefore, offered prox row caprectomy vs fusion-RS to 10/04/18 sp 10/2018 carpectomy c minimal improvement02/09/18 progressive new onset AM stiffness/painful synovitis symmetric B wrist, MCJ, PIPJ, elbow and shoulder and ankle since ~10/2017; therefore, + celecox 200 and R RCJ 10 Kenalog s benefit and referred to Dr. Montenegro [facility]12/2017 R hand xray c moderate-advnaced RCJ OA, chondrocalcinosis Fatigue niode-dacjomfqt-GLJ, medications, mood (some days worse then others, feels well until ~midday)as per ADDfatigue>>weakness, DS, generalized weakness, increased sleeping (12-14H QD, baseline ~6H), feels rested for ~4H (then fatigue)10/17/19 NOCOX (c Minda's) noc ox c RDI 2.5 over 10H testing; therefore, 11/20/19 + fludro 0.1 qAM c "good" citnfmceqin60/26/19 -AchR bi/bl/mod Ab/MUSK1/SM Ab, Lyme, trep Ab, HIV, SPEP/UPEP, A1AT, <0.3/3, CPK 236, -[place] Degeneration of cervical intervertebral disc treatment as per lumbar DJD Depression Stable on venla ER 7 5 qAM, awilda 0.5 BID prn (only using 2x qW)10/18/19 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 Lui (CC)12/2016 SS increased to 150, but more fatigued; therefore, decreased back to 7512/2016 increased to 75 and started lorazepam 0.5 TID prn (moreso for narcotic axnxiety wd) and referred to [facility] Androgen deficiency pump bottle 88 gm is 60 pumps (this is why he gets packets instead of pump)11/26/20 608/13 on 60. increased to 60.75 (but dispense 2 bottles)08/19/20 317 on 40.56 82, 0.7 (using packets, ? getting all out); therefore, increased to 40.5 (via pump)07/2019 797, 12 on 20. 1241 therefore, decreased from 40.5 back to 20.25 (charly given erythro and elevated PSA)04/2018 424, prl 451, 2.3 on AndroGel 20.25 QDhgb as per macroPSA as per prostate cancer screening Nephrolithiasis Patient remains asym ptomatic10/2016 L ESWL110/2015 11 mm L kidney NO stone for TBA ESWL per Ashley Benign prostatic hyperplasia with lower urinary tract sympto ms No recurrent symptoms02/2016 B renal US (done in [place]) c minimal L hydro 10.7 L, 9.3 R-no h/o stones Panic disorder treatment as per MDD Mixed hyperlipidemia 04/15/20 62/62/54, C K 362 on atorva 20; but 04/29/20 held as per hand OA07/2019 51/70/130 on atova 68/66/163, 151, 0. 105/57/151, 176, 0.510 50/61/159, 244, <0.3 on atorva restarted atorva 20 given no change of myalgia off x 3M07/2017 normal LFTs07/2017 A1C 5.3 Opioid use disorder on bup/nal 10/02 1 in AM, 1/[address] Yoo/o recurrent prescription opioid abuse, but c chronic pain syndrome (aggressive multi-joint OA)03/2019 Dr. Sarah assumed MAT rx/ since ~08/2018 using ascending dosages of kratom (white maeng da kratom powder) obtained on-line-now up to 2 tsp TID (~15 gm QD which would be considered at moderate-high amt) - initially started for "pain" but now having withdrawal sx if he does not take. Wants to stop, but admits OUD and would like long-term rx c bup/nal. He will bring in ALL his current supply of kratom and will have taken last dose 01/25/19 midday, start clonidine 0.1 TID prn withdrawal sx and bup/nalox on 01/29/19. Osteopenia recheck BMD / DXA -0.3/-0.2/2 c 08/06/4% change cw 12/2016; therefore, -1.5/-1.3/1.3 c 0.1/0/8% change c/w 07/2013; therefore, CCR07/2013 BMD -1.5/-1.3/0.5 c -8.4/-5.1/0.3% change c/w 07/2011 Treatment Notes Test Name Order Date C REACTIVE PROTEIN QUANTITATIV (At [facility]) 2021-08-10 CPK CREATINE PHOSPHOKINASE 2021-08-10 FERRITIN 2021-08-10 PSA SCREENING 2021-08-10 PTH INTACT 2021-08-10 ERYTHROCYTE SEDIMENTATION RATE 2021-08-10 TOTAL PROTEIN,RANDOM URINE 2021-08-10 LIPID PANEL (CARDIAC RISK) 2021-08-10 TESTOSTERONE FREE & TOTAL 2021-08-10 CBC with Differential 2021-08-10 VITAMIN D 25-HYDROXY 2021-08-10 CREATININE,RANDOM URINE 2021-08-10 CYCLIC CITRULLINATED PEPTIDE 2021-08-10 RHEUMATOID FACTOR QUANT 2021-08-10 DRUG EVAL SCREEN BLOOD 7 DRUGS 2021-08-10 WWNAINJ-1-SPKF DEHYDROGENASE (G6PD) 2021-08-10 Next Appt Details 3M, BW NOW Reason: Provider Name:Reuben Flores, 2021-11-03 0 1:30:00 PM, [address] [facility], , [place], [address], Insurance Providers Payer Name Payer Address Payer Phone Insured Name Patient Relati onship to Insured Coverage Start Date Coverage End Date MEDICARE Part A and B [facility] [id number] [facility] [address] [phone] JACKIE AMBROSE self
--- OUTSIDE RECORDS SUMMARY | 2021-09-03 03:48 | CCD ---
Author Author Located Within [facility] ems Organization [facility] ems Address Unknown Phone Unavailable Care Team Providers Care Hose Turner Name Role Phone Reuben Flores Unavailable PROBLEMS Type Condition ICD9-CM Code [id number] Code Onset Dates Condition S tatus W/U Status Risk SNOMED Code Notes Problem Atrial fibrillation I48.91 Active confirmed 81194765 Problem Hypothyroidism E03.9 Active confirmed 81193 008 Problem Allergic rhinitis J30.9 Active confirmed 61 261575 Problem Carpal tunnel syndrome G56.00 Active confirmed 93427714 Problem Androgen deficiency E29.1 Active confirmed 52448936 Problem Benign prostatic hyperplasia with lower urinary tract symptoms N40.1 Active confirmed 940746505 Problem Osteoarthritis of spine with radiculopathy, lumbar region M47.26 Active confirmed 455833932 Problem Osteoarthritis of first carpometacarpal joint, unspecified M18.9 Active confirmed 12949431 Problem 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 Active confirmed 4485 40159 Problem Degeneration of cervical intervertebral disc M50.3 0 Active confirmed 27186014 Problem Impotence of organic origin N52.9 Active confirmed 292435770 Problem Depression F32.9 Active confirmed 754521254 Problem Osteopenia M85.80 Active confirmed 239543641 Problem Nephrolithiasis N20.0 Active confirmed 9557 0007 Problem Panic disorder F41.0 Active confirmed 05585 1005 Problem 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90 Active confirmed 9124855 Problem Vitamin D deficiency E55.9 Active confirmed 02566933 Problem Mixed hyperlipidemia E78.2 Active confirmed 742592082 Problem Opioid use disorder F11.99 Active confirmed 30679648 Problem Fatigue R53.83 Active confirmed 52093069 Problem Colon cancer screening Z12.11 Active confirmed 635212489 Problem Chronic fatigue R53.82 Active confirmed 8422 9001 ALLERGIES Allergen (clinical drug ingredient) Drug/Non Drug Allergy do cumented on EMR Reaction Allergy Type Onset Date Status Penicillin (For Allergies Use Only) agitation Drug Allerg y Active ENCOUNTERS from 1965 to 2021-07-01 Encounter Location Date Provider Diagnosis [facility] [address] [facility] [phone] [place] [address] May, Reuben Floers IMMUNIZATIONS Vaccine Route Administration Date Status Influenza [...] Education Language: Question Answer Notes Languages spoken: Citizen Of [place] Sabianist: Question Answer Notes Sabianist 33 None No scientologist beliefs that would impact health care. 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 Cheung except for medium hiatal hernia Medical History erectile dysfunction Medical History chronic MDD Medical History paroxysmal atrial fibrillati on (lone, [id number] 0)-August 04, 2010 probably secondary to narcotic [...] food Orally bid for 7 day(s) May, Methylphenidate HCl ER (CD) 10 MG 1 cap Orally every morning for 30 Days Jul, Next Appt Details Provider Name:Reuben Flores, 2021-07-17 0 4:30:00 PM, [address] [facility], , [place], [address], Insurance Providers Payer Name Payer Address Payer Phone Insured Name Patient Relati onship to Insured Coverage Start Date Coverage End Date MEDICARE Part A and B [address] [facility] [phone] JACKIE AMBROSE self
[2021-09-03] MEDS ORDERED: SUBO12MI SL (03:49)
--- OUTSIDE RECORDS SUMMARY | 2021-09-03 03:49 | CCD ---
Author Author [facility] Organization [facility] Address Unknown Phone Unavailable Support Name Relationship Address Phone SHERRI SANTOYO Next Of Kin Unknown KHALIDA GODOY Next Of Kin [address] [place] [address] ROCÍO JERONIMO Next Of Kin [address] [place] [address] DMITRI MENDOZA Next Of Kin [address] [place] [address] L DARLINGSUSY Nelson Next Of Kin [address] [place] [address] RAYMOUR Next Of Kin [address] [place] [address] UE Next Of Kin Unknown Unavailable KHALIDA AMBROSE Next Of Kin [address] [facility] [address] [facility], [address] DISABLED Next Of Kin Unknown SUSY JERONIMO Next Of Kin [address] [place] [address] ROCÍO JERONIMO ECON [address] [place] [address] Unavailable Re-disclosure Warning The records that you are about to access may contain information from federally-assisted alcohol or drug abuse programs. If such information is present, then the following federally mandated warning applies: This information has been disclosed to you from records protected by federal confidentiality rules (42 CFR part 2). The federal rules prohibit you from making any further disclosure of this information unless further disclosure is expressly permitted by the written consent of the person to whom it pertains or as otherwise permitted by 42 CFR part 2. A general authorization for the release of medical or other information is NOT sufficient for this purpose. The Federal rules restrict any use of the information to criminally investigate or prosecute any alcohol or drug abuse patient.The records that you are about to access may contain highly sensitive health information, the redisclosure of which is protected by Article 27-F of the [place] State Public Health law. If you continue you may have access to information: Regarding HIV / AIDS; Provided by facilities licensed or operated by the [facility] Office of Mental Health; or Provided by the [facility] Office for People With Developmental Disabilities. If such information is present, then the following [facility] mandated warning applies: This information has been disclosed to you from confidential records which are protected by state law. State law prohibits you from making any further disclosure of this information without the specific written consent of the person to whom it pertains, or as otherwise permitted by law. Any unauthorized further disclosure in violation of state law may result in a fine or snf sentence or both. A general authorization for the release of medical or other information is NOT sufficient authorization for further disc losure. Encounters Encounter Providers Location Date Indications Data Source(s ) Unknown [address] [facility] [id number] 08/17/2021 12:00:00 AM EDT eCW1 ([facility] Outpatient [address] [facility] [address] 08/10/2021 12:00:00 AM EDT [facility]CW1 [facility]) Unknown [address] [facility] [address] 07/24/2021 12:00:00 AM EDT eCW1 ([facility]) Unknown [address] [facility] [address] 07/20/2021 12:00:00 AM EDT eCW1 ([facility]) Unknown [address] [facility] [id number] 07/20/2021 12:00:00 AM EDT eCW1 ([facility]) Unknown [address] [facility] [address] 06/30/2021 12:00:00 AM EDT eCW1 ([facility]) Office Visit, Est Pt., Level 3 PC [address] [place] [address] 06/24/2021 12:00:00 AM EDT eCW1 ([facility]) Unknown [address] [facility] [place] [address] 06/22/2021 12:00:00 AM EDT eCW1 ([facility]) [place] [address] [facility] [place] [address] 06/02/2021 12:00:00 AM EDT eCW1 ([facility]) Unknown [address] [facility] [place] [address] 06/01/2021 12:00:00 AM EDT eCW1 ([facility]) Unknown [address] [facility] [place] [address] 05/27/2021 12:00:00 AM EDT eCW1 ([facility]) Unknown [address] [facility] [place] [address] 05/26/2021 12:00:00 AM EDT eCW1 ([facility]) Unknown [address] [facility] [place] [address] 05/22/2021 12:00:00 AM EDT eCW1 ([facility]) Unknown [address] [facility] [place] [address] 05/05/2021 12:00:00 AM EDT eCW1 ([facility]) Unknown [address] [facility] [place] [address] 05/05/2021 12:00:00 AM EDT eCW1 ([facility]) Unknown [address] [facility] [place] [address] 04/28/2021 12:00:00 AM EDT eCW1 ([facility]) Unknown [address] [facility] [place] [address] 04/28/2021 12:00:00 AM EDT eCW1 ([facility]) Unknown [address] [facility] [place] [address] 04/24/2021 12:00:00 AM EDT eCW1 ([facility]) Unknown [address] [facility] [place] [address] 04/21/2021 12:00:00 AM EDT eCW1 ([facility]) Unknown [address] [facility] [place] [address] 04/21/2021 12:00:00 AM EDT eCW1 ([facility]) Unknown [address] [facility] [place] [address] 04/16/2021 12:00:00 AM EDT eCW1 ([facility]) Unknown [address] [facility] [place] [address] 2021 12:00:00 AM EDT eCW1 ([facility]) Unknown [address] [facility] [place] [address] 03/23/2021 12:00:00 AM EDT eCW1 ([facility]) Unknown [address] [facility] [place] [address] 03/16/2021 12:00:00 AM EDT eCW1 ([facility]) Outpatient [address] [facility] [place] [address] 03/13/2021 12:00:00 AM EDT eCW1 ([facility]) Unknown [address] [facility] [place] [address] 03/03/2021 12:00:00 AM EDT eCW1 ([facility]) Unknown [address] [facility] [place] [address] 02/24/2021 12:00:00 AM EDT eCW1 ([facility]) Unknown [address] [facility] [place] [address] 02/19/2021 12:00:00 AM EDT eCW1 ([facility]) Office Visit, Est Pt., Level 3 PC [address] [place] [address] 02/17/2021 12:00:00 AM EDT eCW1 ([facility]) Unknown [address] [facility] [place] [address] 02/17/2021 12:00:00 AM EDT eCW1 ([facility]) Unknown [address] [facility] [place] [address] 02/10/2021 12:00:00 AM EDT eCW1 ([facility]) Unknown [address] [facility] [place] [address] 02/04/2021 12:00:00 AM EDT eCW1 ([facility]) Unknown [address] [facility] [place] [address] 01/26/2021 12:00:00 AM EDT eCW1 ([facility]) Unknown [address] [facility] [place] [address] 01/21/2021 12:00:00 AM EDT eCW1 ([facility]) Unknown [address] [facility] [place] [address] 01/19/2021 12:00:00 AM EDT eCW1 ([facility]) Unknown [address] [facility] [place] [address] 01/07/2021 12:00:00 AM EST eCW1 ([facility]) Unknown [address] [facility] [place] [address] 12/31/2020 12:00:00 AM EST eCW1 ([facility]) Unknown [address] [facility] [place] [address] 12/30/2020 12:00:00 AM EST eCW1 ([facility]) Unknown [address] [facility] [place] [address] 12/23/2020 12:00:00 AM EST eCW1 ([facility]) Unknown [address] [facility] [place] [address] 12/19/2020 12:00:00 AM EST eCW1 ([facility]) Office Visit, Est Pt., Level 3 PC [address] [place] [address] 12/17/2020 12:00:00 AM EST eCW1 ([facility]) Unknown [address] [facility] [place] [address] 12/16/2020 12:00:00 AM EST eCW1 ([facility]) Unknown [address] [facility] [place] [address] 12/10/2020 12:00:00 AM EST eCW1 ([facility]) Office Visit, Est Pt., Level 3 PC [address] [place] [address] 12/02/2020 12:00:00 AM EST eCW1 ([facility]) Unknown [address] [facility] [place] [address] 11/26/2020 12:00:00 AM EST eCW1 ([facility]) [place] [address] [facility] [place] [address] 11/24/2020 12:00:00 AM EST eCW1 ([facility]) [place]patient [address] [facility] [place] [address] 11/17/2020 12:00:00 AM EST eCW1 ([facility]) [place] [address] [facility] [place] [address] 11/04/2020 12:00:00 AM EST eCW1 ([facility]) Unknown [address] [facility] [place] [address] 10/29/2020 12:00:00 AM EST eCW1 ([facility]) [place] [address] [facility] [place] [address] 10/21/2020 12:00:00 AM EST eCW1 ([facility]) [place] [address] [facility] [place] [address] 10/20/2020 12:00:00 AM EST eCW1 ([facility]) [place] [address] [facility] [place] [address] 10/17/2020 12:00:00 AM EST eCW1 ([facility]) Office Visit, Est Pt., Level 4 PC [address] [place] [address] 10/17/2020 12:00:00 AM EST eCW1 ([facility]) Unknown [address] [facility] [place] [address] 10/17/2020 12:00:00 AM EST eCW1 ([facility]) Unknown [address] [facility] [place] [address] 09/30/2020 12:00:00 AM EST eCW1 ([facility]) [place] [address] [facility] [place] [address] 09/29/2020 12:00:00 AM EST eCW1 ([facility]) Unknown [address] [facility] [place] [address] 09/22/2020 12:00:00 AM EST eCW1 ([facility]) Unknown [address] [facility] [place] [address] 09/18/2020 12:00:00 AM EST eCW1 ([facility]) Unknown [address] [facility] [place] [address] 09/16/2020 12:00:00 AM EST eCW1 ([facility]) Outpatient [address] [facility] [place] [address] 09/11/2020 12:00:00 AM EST eCW1 ([facility]) Unknown [address] [facility] [place] [address] 08/29/2020 12:00:00 AM EDT eCW1 ([facility]) Unknown [address] [facility] [place] [address] 08/07/2020 12:00:00 AM EDT eCW1 ([facility]) [place] [address] [facility] [place] [address] 08/01/2020 12:00:00 AM EDT eCW1 ([facility]) Unknown [address] [facility] [place] [address] 07/31/2020 12:00:00 AM EDT eCW1 ([facility]) Immunizations Vaccine Date Status Description Data Source(s) COVID-19 VACC,MRNA(MODERNA)/PF 03/05/2021 12:00:00 AM EDT completed [facility] COVID-19 VACCINE Moderna 03/05/2021 12:00:00 AM EDT completed [facility] Vaccine Series Complete: YESThis Data wa s Submitted to [facility]. COVID-19 VACCINE Moderna 02/05/2021 12:00:00 AM EDT completed [facility] Vaccine Series Complete: NOThis Data was Submitted to [facility]. COVID-19 VACCINE, MRNA-1273, LNP-S (MODERNA)/PF 02/05/2021 1 2:00:00 AM EDT completed [facility] FLU VACCINE QUADRIV (4 YEARS AND OLDER)CELL D ERIVED 08/12/2020 12:00:00 AM EDT completed [facility] Medications Medication Brand Name Start Date Product Form Dose Route Admi nistrative Instructions Pharmacy Instructions Status Indications Reaction Description Data Source(s) 12-3 mg 08/28/2021 12:00:00 AM EDT film [address] TWO FILMS UNDER THE TONGUE EVERY DAY MAXIMUM DAILY DOSE = 2 PLACE TWO FILMS UNDER THE TONGUE EVERY D AY MAXIMUM DAILY DOSE = 2 SOLD: 08/28/2021 [facility] 200 mg 08/27/2021 12:00:00 AM EDT capsule 60 TAKE ONE CAPSULE BY MOUTH TWICE A DAY MAXIMUM DAILY DOSE = 2 TAKE ONE CAPSULE BY MOUTH TWICE A DAY MA XIMUM DAILY DOSE = 2 SOLD: 08/28/2021 [facility] 0.5 mg 08/21/2021 12:00:00 AM EDT tablet 60 TAKE ONE TABLET BY MOUTH TWICE A DAY MAXIMUM DAILY DOSE = 2 TABLETS TAKE ONE TABLET BY MOUTH TWICE A DAY MAX IMUM DAILY DOSE = 2 TABLETS SOLD: 08/23/2021 [facility] 200 mg 08/18/2021 12:00:00 AM EDT capsule 90 TAKE ONE CAPSULE BY MOUTH EVERY DAY TAKE ONE CAPSULE BY MOUTH EVERY DAY SOLD: 08/20/2021 [facility] Eszopiclone 2 MG Oral Tablet [Lunesta] Lunesta 2 MG Lunesta 2 MG 08/17/2021 12:00:00 AM EDT 1.0 {tablet_immediately_before_bedtime} active Lunesta 2 MG eCW1 ([facility]) Lorazepam 0.5 MG Oral Tablet LORazepam 0.5 MG LORazepam 0.5 MG 08/17/2021 12:00:00 AM EDT active LORazepa m 0.5 MG eCW1 ([facility]) 10 mg 08/15/2021 12:00:00 AM EDT capsule, ER biphasic 30 -70 60 TAKE ONE CAPSULE BY MOUTH TWICE A DAY MAXIMUM DAILY DOSE = 2 CAPSULES TAKE ONE CAPSULE BY MOUTH TWICE A DAY MAXIMUM DAILY DOSE = 2 CAPSULES SOLD: 08/15/2021 [facility] Methylphenidate HCl ER (CD) 10 MG Methylphenidate HCl ER (CD ) 10 MG 08/10/2021 12:00:00 AM EDT active Methylph enidate HCl ER (CD) 10 MG eCW1 ([facility]) Methylphenidate HCl ER (CD) 10 MG Methylphenidate HCl ER (CD ) 10 MG 08/10/2021 12:00:00 AM EDT active Methylph enidate HCl ER (CD) 10 MG eCW1 ([facility]) 10 mg 08/01/2021 12:00:00 AM EDT capsule, ER biphasic 30 -70 10 TAKE ONE CAPSULE BY MOUTH EVERY MORNING MAXIMUM DAILY DOSE = 1 CAPSULE TAKE ONE CAPSULE BY MOUTH EVERY MORNING MAXIMUM DAILY DOSE = 1 CAPSULE SOLD: 08/01/2021 [facility] 10 mg 08/01/2021 12:00:00 AM EDT capsule, ER biphasic 30 -70 20 TAKE ONE CAPSULE BY MOUTH EVERY MORNING MAXIMUM DAILY DOSE = 1 CAPSULE TAKE ONE CAPSULE BY MOUTH EVERY MORNING MAXIMUM DAILY DOSE = 1 CAPSULE SOLD: 08/01/2021 [facility] 12-3 mg 07/31/2021 12:00:00 AM EDT film [address] 1 & 1/2 FILMS UNDER THE TONGUE EVERY DAY MAXIMUM DAILY DOSE = 1 & 1/[address] 1 & 1/2 FILMS UNDER THE TONGUE EVERY DAY MAXIMUM DAILY DOSE = 1 & 1/2 FILMS SOLD: 08/01/2021 [facility] pregabalin 200 MG Oral Capsule [Lyrica] Lyrica 200 MG [facility]rica 200 MG 07/28/2021 12:00:00 AM EDT 1.0 {capsule} active L yrica 200 MG eCW1 ([facility]) 200 mg 07/28/2021 12:00:00 AM EDT capsule 60 TAKE ONE CAPSULE BY MOUTH TWICE A DAY MAXIMUM DAILY DOSE = 2 TAKE ONE CAPSULE BY MOUTH TWICE A DAY MA XIMUM DAILY DOSE = 2 SOLD: 07/29/2021 [facility] Eszopiclone 2 MG Oral Tablet ESZOPICLONE 07/28/2021 12:00:00 AM EDT ta blet 30 TAKE ONE TABLET BY MOUTH AT BEDTIME MAXIMUM DAILY DOSE = 1 TABLET TAKE ONE TABLET BY MOUTH AT BEDTIME MAXIMUM DAILY DOSE = 1 TABLET SOLD: 07/29/2021 [facility] Mendez Eszopiclone 2 MG Oral Tablet [Lunesta] Lunesta 2 MG Lunesta 2 MG 07/28/2021 12:00:00 AM EDT 1.0 {tablet_immediately_before_bedtime} active Lunesta 2 MG eCW1 ([facility]) Methylphenidate HCl ER (CD) 10 MG Methylphenidate HCl ER (CD ) 10 MG 07/28/2021 12:00:00 AM EDT active Methylph enidate HCl ER (CD) 10 MG eCW1 ([facility]) 2500 MG Testosterone 0.0162 MG/MG Topica l Gel [Androgel] AndroGel 40.5 MG/2.5GM (1.62%) AndroGel 40.5 MG/2.5GM (1.62%) 07/21/2021 12:00:00 AM EDT active AndroGel 40.5 MG/2.5GM (1.62%) e CW1 ([facility]) 0.5 mg 07/21/2021 12:00:00 AM EDT tablet 60 TAKE ONE TABLET BY MOUTH TWICE A DAY NEEDED MAXIMUM DAILY DOSE = 2 TABLETS TAKE ONE TABLET BY MOUTH TWICE A DAY NEEDED MAXIMUM DAILY DOSE = 2 TABLETS SOLD: 07/23/2021 [facility] Mendez Lorazepam 0.5 MG Oral Tablet LORazepam 0.5 MG LORazepam 0.5 MG 07/21/2021 12:00:00 AM EDT active LORazepa m 0.5 MG eCW1 ([facility]) 2500 MG Testosterone 0.0162 MG/MG Topica l Gel [Androgel] AndroGel 40.5 MG/2.5GM (1.62%) AndroGel 40.5 MG/2.5GM (1.62%) 07/21/2021 12:00:00 AM EDT active AndroGel 40.5 MG/2.5GM (1.62%) e CW1 ([facility]) Lorazepam 0.5 MG Oral Tablet LORazepam 0.5 MG LORazepam 0.5 MG 07/21/2021 12:00:00 AM EDT active LORazepa m 0.5 MG eCW1 ([facility]) 20.25 mg/1.25 gram (1.62 %) 07/21/2021 12:00:00 AM EDT gel in metered-dose pump 150 APPLY 4 PUMPS TO THE SKIN ONCE D AILY MAXIMUM DAILY DOSE = 4 PUMPS APPLY 4 PUMPS TO THE SKIN ONCE DAILY MAXIMUM DAILY DOSE = 4 PUMPS SOLD: 07/23/2021 [facility] 10 mg 07/03/2021 12:00:00 AM EDT capsule, ER biphasic 30 -70 30 TAKE ONE CAPSULE BY MOUTH EVERY MORNING MAXIMUM DAILY DOSE = 1 TAKE ONE CAPSULE BY MOUTH EVERY MORNING MAXIMUM DAILY DOSE = 1 SOLD: 07/03/2021 [facility] Methylphenidate HCl ER (CD) 10 MG Methylphenidate HCl ER (CD ) 10 MG 07/01/2021 12:00:00 AM EDT active Methylph enidate HCl ER (CD) 10 MG eCW1 ([facility]) Methylphenidate HCl ER (CD) 10 MG Methylphenidate HCl ER (CD ) 10 MG 07/01/2021 12:00:00 AM EDT active Methylph enidate HCl ER (CD) 10 MG eCW1 ([facility]) Methylphenidate HCl ER (CD) 10 MG Methylphenidate HCl ER (CD ) 10 MG 07/01/2021 12:00:00 AM EDT active Methylph enidate HCl ER (CD) 10 MG eCW1 ([facility]) 200 mg 06/25/2021 12:00:00 AM EDT capsule 60 TAKE ONE CAPSULE BY MOUTH TWICE A DAY MAXIMUM DAILY DOSE = 2 TAKE ONE CAPSULE BY MOUTH TWICE A DAY NORA FABIAN DAILY DOSE = 2 SOLD: 06/26/2021 [facility] NITROFURANTOIN, MACROCRYSTALS 25 MG / Ni trofurantoin, Monohydrate 75 MG Oral Capsule Nitrofurantoin Monohyd Macro 100 MG Nitrofurantoin Monohyd Macro 100 MG 06/24/2021 12:00:00 AM EDT active Nitrofurantoin Monohyd Macro 100 MG eCW1 ([facility]) NITROFURANTOIN, MACROCRYSTALS 25 MG / Ni trofurantoin, Monohydrate 75 MG Oral Capsule Nitrofurantoin Monohyd Macro 100 MG Nitrofurantoin Monohyd Macro 100 MG 06/24/2021 12:00:00 AM EDT active Nitrofurantoin Monohyd Macro 100 MG eCW1 ([facility]) NITROFURANTOIN, MACROCRYSTALS 25 MG / Ni trofurantoin, Monohydrate 75 MG Oral Capsule 100 mg NITROFURANTOIN MONOHYD/M-CRYST 06/24/2021 12:00:00 AM EDT ca psule 14 TAKE ONE CAPSULE BY MOUTH TWICE A DAY WITH FOOD TAKE ONE CAPSULE BY MOUTH TWICE A DAY WITH FOOD SOLD: 06/24/2021 [facility] NITROFURANTOIN, MACROCRYSTALS 25 MG / Ni trofurantoin, Monohydrate 75 MG Oral Capsule Nitrofurantoin Monohyd Macro 100 MG Nitrofurantoin Monohyd Macro 100 MG 06/24/2021 12:00:00 AM EDT active Nitrofurantoin Monohyd Macro 100 MG eCW1 ([facility]) NITROFURANTOIN, MACROCRYSTALS 25 MG / Ni trofurantoin, Monohydrate 75 MG Oral Capsule Nitrofurantoin Monohyd Macro 100 MG Nitrofurantoin Monohyd Macro 100 MG 06/24/2021 12:00:00 AM EDT active Nitrofurantoin Monohyd Macro 100 MG eCW1 ([facility]) NITROFURANTOIN, MACROCRYSTALS 25 MG / Ni trofurantoin, Monohydrate 75 MG Oral Capsule Nitrofurantoin Monohyd Macro 100 MG Nitrofurantoin Monohyd Macro 100 MG 06/24/2021 12:00:00 AM EDT active Nitrofurantoin Monohyd Macro 100 MG eCW1 ([facility]) 125 mcg 06/23/2021 12:00:00 AM EDT tablet 30 TAKE ONE TABLET BY MOUTH EVERY DAY TAKE ONE TABLET BY MOUTH EVERY DAY SOLD: 06/24/2021 [facility] 75 mg 06/23/2021 12:00:00 AM EDT tablet extended release 24hr 30 TAKE ONE TABLET BY MOUTH EVERY DAY WITH FOOD TAKE ONE TABLET BY MOUTH EVERY DAY WITH FOOD SOLD: 08/01/2021 [facility] 125 mcg 06/23/2021 12:00:00 AM EDT tablet 30 TAKE ONE TABLET BY MOUTH EVERY DAY TAKE ONE TABLET BY MOUTH EVERY DAY SOLD: 08/01/2021 [facility] 10 mg 06/23/2021 12:00:00 AM EDT tablet 180 TAKE 1 TABLET BY MOUTH IN THE MORNING AND 1/2 TABLET MID-AFTERNOON AND 1/2 TABLET IN THE EVENING TAKE 1 TABLET BY MOUTH IN THE MORNING AND 1/2 TABLET MID-AFTERNOON AND 1/2 TABLET IN THE EVENING SOLD: 06/24/2021 [facility] 125 mcg 06/23/2021 12:00:00 AM EDT tablet 30 TAKE ONE TABLET BY MOUTH EVERY DAY TAKE ONE TABLET BY MOUTH EVERY DAY SOLD: 08/28/2021 [facility] 75 mg 06/23/2021 12:00:00 AM EDT tablet extended release 24hr 30 TAKE ONE TABLET BY MOUTH EVERY DAY WITH FOOD TAKE ONE TABLET BY MOUTH EVERY DAY WITH FOOD SOLD: 06/24/2021 [facility] 75 mg 06/23/2021 12:00:00 AM EDT tablet extended release 24hr 30 TAKE ONE TABLET BY MOUTH EVERY DAY WITH FOOD TAKE ONE TABLET BY MOUTH EVERY DAY WITH FOOD SOLD: 08/28/2021 [facility] Lorazepam 0.5 MG Oral Tablet LORazepam 0.5 MG LORazepam 0.5 MG 06/22/2021 12:00:00 AM EDT active LORazepa m 0.5 MG eCW1 ([facility]) Lorazepam 0.5 MG Oral Tablet LORazepam 0.5 MG LORazepam 0.5 MG 06/22/2021 12:00:00 AM EDT active LORazepa m 0.5 MG eCW1 ([facility]) pregabalin 200 MG Oral Capsule [Lyrica] Lyrica 200 MG [facility]rica 200 MG 06/22/2021 12:00:00 AM EDT 1.0 {capsule} active L yrica 200 MG eCW1 ([facility]) pregabalin 200 MG Oral Capsule [Lyrica] Lyrica 200 MG Lyrica 200 MG 06/22/2021 12:00:00 AM EDT 1.0 {capsule} active L yrica 200 MG eCW1 ([facility]) pregabalin 200 MG Oral Capsule [Lyrica] Lyrica 200 MG [facility]rica 200 MG 06/22/2021 12:00:00 AM EDT 1.0 {capsule} active L yrica 200 MG eCW1 ([facility]) pregabalin 200 MG Oral Capsule [Lyrica] Lyrica 200 MG Lyrica 200 MG 06/22/2021 12:00:00 AM EDT 1.0 {capsule} active L yrica 200 MG eCW1 ([facility]) pregabalin 200 MG Oral Capsule [Lyrica] Lyrica 200 MG [facility]rica 200 MG 06/22/2021 12:00:00 AM EDT 1.0 {capsule} active L yrica 200 MG eCW1 ([facility]) 0.5 mg 06/22/2021 12:00:00 AM EDT tablet 60 TAKE ONE TABLET BY MOUTH TWICE A DAY NEEDED MAXIMUM DAILY DOSE = 2 TAKE ONE TABLET BY MOUTH TWICE A DAY NEEDED MAXIMUM DAILY DOSE = 2 SOLD: 06/22/2021 [facility] Lorazepam 0.5 MG Oral Tablet LORazepam 0.5 MG LORazepam 0.5 MG 06/22/2021 12:00:00 AM EDT active LORazepa m 0.5 MG eCW1 ([facility]) Lorazepam 0.5 MG Oral Tablet LORazepam 0.5 MG LORazepam 0.5 MG 06/22/2021 12:00:00 AM EDT active LORazepa m 0.5 MG eCW1 ([facility]) 12-3 mg 06/19/2021 12:00:00 AM EDT film 56 PLACE ONE-HALF FILM UNDER THE TONGUE FOUR TIMES A DAY MAXIMUM DAILY DOSE = [address] ONE-HALF FILM UNDER THE TONGUE FOUR TIMES A DAY MAXIMUM DAILY DOSE = 2 FILMS SOLD: 06/21/2021 [facility] Methylphenidate HCl ER (CD) 10 MG Methylphenidate HCl ER (CD ) 10 MG 06/04/2021 12:00:00 AM EDT active Methylph enidate HCl ER (CD) 10 MG eCW1 ([facility]) Methylphenidate HCl ER (CD) 10 MG Methylphenidate HCl ER (CD ) 10 MG 06/04/2021 12:00:00 AM EDT active Methylph enidate HCl ER (CD) 10 MG eCW1 ([facility]) 10 mg 06/04/2021 12:00:00 AM EDT capsule, ER biphasic 30 -70 30 TAKE ONE CAPSULE BY MOUTH EVERY MORNING MAXIMUM DAILY DOSE = 1 CAPSULE TAKE ONE CAPSULE BY MOUTH EVERY MORNING MAXIMUM DAILY DOSE = 1 CAPSULE SOLD: 06/04/2021 [employer] Methylphenidate HCl ER (CD) 10 MG Methylphenidate HCl ER (CD ) 10 MG 06/04/2021 12:00:00 AM EDT active Methylph enidate HCl ER (CD) 10 MG eCW1 ([facility]) 20.25 mg/1.25 gram (1.62 %) 06/01/2021 12:00:00 AM EDT gel in metered-dose pump 150 APPLY 4 PUMPS TO THE SKIN ONCE D AILY MAXIMUM DAILY DOSE = 4 PUMPS APPLY 4 PUMPS TO THE SKIN ONCE DAILY MAXIMUM DAILY DOSE = 4 PUMPS SOLD: 06/02/2021 [facility] 2500 MG Testosterone 0.0162 MG/MG Topica l Gel [Androgel] AndroGel 40.5 MG/2.5GM (1.62%) AndroGel 40.5 MG/2.5GM (1.62%) 06/01/2021 12:00:00 AM EDT active AndroGel 40.5 MG/2.5GM (1.62%) e [facility] [facility] 2500 MG Testosterone 0.0162 MG/MG Topica l Gel [Androgel] AndroGel 40.5 MG/2.5GM (1.62%) AndroGel 40.5 MG/2.5GM (1.62%) 06/01/2021 12:00:00 AM EDT active AndroGel 40.5 MG/2.5GM (1.62%) e CW1 ([facility]) 2500 MG Testosterone 0.0162 MG/MG Topica l Gel [Androgel] AndroGel 40.5 MG/2.5GM (1.62%) AndroGel 40.5 MG/2.5GM (1.62%) 06/01/2021 12:00:00 AM EDT active AndroGel 40.5 MG/2.5GM (1.62%) e CW1 ([facility]) 2500 MG Testosterone 0.0162 MG/MG Topica l Gel [Androgel] AndroGel 40.5 MG/2.5GM (1.62%) AndroGel 40.5 MG/2.5GM (1.62%) 06/01/2021 12:00:00 AM EDT active eCW1 ([facility]) 2500 MG Testosterone 0.0162 MG/MG Topica l Gel [Androgel] AndroGel 40.5 MG/2.5GM (1.62%) AndroGel 40.5 MG/2.5GM (1.62%) 06/01/2021 12:00:00 AM EDT active AndroGel 40.5 MG/2.5GM (1.62%) e CW1 ([facility]) 2500 MG Testosterone 0.0162 MG/MG Topica l Gel [Androgel] AndroGel 40.5 MG/2.5GM (1.62%) AndroGel 40.5 MG/2.5GM (1.62%) 06/01/2021 12:00:00 AM EDT active AndroGel 40.5 MG/2.5GM (1.62%) e CW1 ([facility]) 200 mg 05/26/2021 12:00:00 AM EDT capsule 60 TAKE ONE CAPSULE BY MOUTH TWICE A DAY MAXIMUM DAILY DOSE = 2 TAKE ONE CAPSULE BY MOUTH TWICE A DAY MA XIMUM DAILY DOSE = 2 SOLD: 05/27/2021 [facility] Eszopiclone 2 MG Oral Tablet ESZOPICLONE 05/26/2021 12:00:00 AM EDT ta blet 30 TAKE ONE TABLET BY MOUTH EVERY DAY IMMEDIATELY BEFORE BEDTIME MAXIMUM DAILY DOSE = 1 TAKE ONE TABLET BY MOUTH EVERY DAY IMMED IATELY BEFORE BEDTIME MAXIMUM DAILY DOSE = 1 SOLD: 06/26/2021 [facility] Eszopiclone 2 MG Oral Tablet ESZOPICLONE 05/26/2021 12:00:00 AM EDT ta blet 30 TAKE ONE TABLET BY MOUTH EVERY DAY IMMEDIATELY BEFORE BEDTIME MAXIMUM DAILY DOSE = 1 TAKE ONE TABLET BY MOUTH EVERY DAY IMMED IATELY BEFORE BEDTIME MAXIMUM DAILY DOSE = 1 SOLD: 05/27/2021 [facility] atorvastatin 20 MG Oral Tablet ATORVASTATIN CALCIUM 05/26/2021 1 2:00:00 AM EDT tablet 90 TAKE ONE TABLET BY MOUTH EVERY D AY TAKE ONE TABLET BY MOUTH EVERY DAY SOLD: 08/28/2021 [facility] atorvastatin 20 MG Oral Tablet ATORVASTATIN CALCIUM 05/26/2021 1 2:00:00 AM EDT tablet 90 TAKE ONE TABLET BY MOUTH EVERY D AY TAKE ONE TABLET BY MOUTH EVERY DAY SOLD: 05/27/2021 [facility] 0.5 mg 05/23/2021 12:00:00 AM EDT tablet 60 TAKE ONE TABLET BY MOUTH TWICE A DAY NEEDED MAXIMUM DAILY DOSE = 2 TAKE ONE TABLET BY MOUTH TWICE A DAY NEEDED MAXIMUM DAILY DOSE = 2 SOLD: 05/23/2021 [facility] 12-3 mg 05/22/2021 12:00:00 AM EDT film 56 PLACE ONE-HALF FILM UNDER THE TONGUE FOUR TIMES A DAY MAXIMUM DAILY DOSE = 2 PLACE ONE-HALF FILM UNDER THE TONGUE FOUR TIMES A DAY MAXIMUM DAILY DOSE = 2 SOLD: 05/23/2021 [facility] sildenafil 50 MG Oral Tablet [Viagra] Viagra 50 MG Viagra 50 MG 05/05/2021 12:00:00 AM EDT 1.0 {tablet_as_needed} active eCW1 ([facility]) sildenafil 50 MG Oral Tablet [Viagra] Viagra 50 MG Viagra 50 MG 05/05/2021 12:00:00 AM EDT 1.0 {tablet_as_needed} active Viagra 50 MG eCW1 ([facility]) sildenafil 50 MG Oral Tablet [Viagra] Viagra 50 MG Viagra 50 MG 05/05/2021 12:00:00 AM EDT 1.0 {tablet_as_needed} active Viagra 50 MG eCW1 ([facility]) sildenafil 50 MG Oral Tablet [Viagra] Viagra 50 MG Viagra 50 MG 05/05/2021 12:00:00 AM EDT 1.0 {tablet_as_needed} active Viagra 50 MG eCW1 ([facility]) sildenafil 50 MG Oral Tablet [Viagra] Viagra 50 MG Viagra 50 MG 05/05/2021 12:00:00 AM EDT 1.0 {tablet_as_needed} active Viagra 50 MG eCW1 ([facility]) sildenafil 50 MG Oral Tablet [Viagra] Viagra 50 MG Viagra 50 MG 05/05/2021 12:00:00 AM EDT 1.0 {tablet_as_needed} active Viagra 50 MG eCW1 ([facility]) sildenafil 50 MG Oral Tablet [Viagra] Viagra 50 MG Viagra 50 MG 05/05/2021 12:00:00 AM EDT 1.0 {tablet_as_needed} active Viagra 50 MG eCW1 ([facility]) sildenafil 50 MG Oral Tablet [Viagra] Viagra 50 MG Viagra 50 MG 05/05/2021 12:00:00 AM EDT 1.0 {tablet_as_needed} active Viagra 50 MG eCW1 ([facility]) sildenafil 50 MG Oral Tablet [Viagra] Viagra 50 MG Viagra 50 MG 05/05/2021 12:00:00 AM EDT 1.0 {tablet_as_needed} active Viagra 50 MG eCW1 ([facility]) Methylphenidate HCl ER (CD) 10 MG Methylphenidate HCl ER (CD ) 10 MG 05/05/2021 12:00:00 AM EDT active Methylph enidate HCl ER (CD) 10 MG eCW1 ([facility]) Methylphenidate HCl ER (CD) 10 MG Methylphenidate HCl ER (CD ) 10 MG 05/05/2021 12:00:00 AM EDT active Methylph enidate HCl ER (CD) 10 MG eCW1 ([facility]) 10 mg 05/05/2021 12:00:00 AM EDT capsule, ER biphasic 30 -70 30 TAKE ONE CAPSULE BY MOUTH EVERY MORNING MAXIMUM DAILY DOSE = 1 TAKE ONE CAPSULE BY MOUTH EVERY MORNING MAXIMUM DAILY DOSE = 1 SOLD: 05/05/2021 [facility] sildenafil 50 MG Oral Tablet [Viagra] Viagra 50 MG Viagra 50 MG 05/05/2021 12:00:00 AM EDT 1.0 {tablet_as_needed} active Viagra 50 MG eCW1 ([facility]) Methylphenidate HCl ER (CD) 10 MG Methylphenidate HCl ER (CD ) 10 MG 05/05/2021 12:00:00 AM EDT active Methylph enidate HCl ER (CD) 10 MG eCW1 ([facility]) sildenafil 50 MG Oral Tablet [Viagra] Viagra 50 MG Viagra 50 MG 05/05/2021 12:00:00 AM EDT 1.0 {tablet_as_needed} active Viagra 50 MG eCW1 ([facility]) sildenafil 50 MG Oral Tablet [Viagra] Viagra 50 MG Viagra 50 MG 05/05/2021 12:00:00 AM EDT 1.0 {tablet_as_needed} active Viagra 50 MG eCW1 ([facility]) sildenafil 50 MG Oral Tablet [Viagra] Viagra 50 MG Viagra 50 MG 05/05/2021 12:00:00 AM EDT 1.0 {tablet_as_needed} active Viagra 50 MG eCW1 ([facility]) Methylphenidate HCl ER (CD) 10 MG Methylphenidate HCl ER (CD ) 10 MG 05/05/2021 12:00:00 AM EDT active Methylph enidate HCl ER (CD) 10 MG eCW1 ([facility]) Methylphenidate HCl ER (CD) 10 MG Methylphenidate HCl ER (CD ) 10 MG 05/05/2021 12:00:00 AM EDT active Methylph enidate HCl ER (CD) 10 MG eCW1 ([facility]) Methylphenidate HCl ER (CD) 10 MG Methylphenidate HCl ER (CD ) 10 MG 05/05/2021 12:00:00 AM EDT active e CW1 ([facility]) sildenafil 50 MG Oral Tablet [Viagra] Viagra 50 MG Viagra 50 MG 05/05/2021 12:00:00 AM EDT 1.0 {tablet_as_needed} active Viagra 50 MG eCW1 ([facility]) Methylphenidate HCl ER (CD) 10 MG Methylphenidate HCl ER (CD ) 10 MG 05/05/2021 12:00:00 AM EDT active Methylph enidate HCl ER (CD) 10 MG eCW1 ([facility]) Methylphenidate HCl ER (CD) 10 MG Methylphenidate HCl ER (CD ) 10 MG 05/05/2021 12:00:00 AM EDT active Methylph enidate HCl ER (CD) 10 MG eCW1 ([facility]) sildenafil 50 MG Oral Tablet [Viagra] Viagra 50 MG Viagra 50 MG 05/05/2021 12:00:00 AM EDT 1.0 {tablet_as_needed} active Viagra 50 MG eCW1 ([facility]) Methylphenidate HCl ER (CD) 10 MG Methylphenidate HCl ER (CD ) 10 MG 04/28/2021 12:00:00 AM EDT active Methylph enidate HCl ER (CD) 10 MG eCW1 ([facility]) 200 mg 04/24/2021 12:00:00 AM EDT capsule 60 TAKE ONE CAPSULE BY MOUTH TWICE A DAY MAXIMUM DAILY DOSE = 2 TAKE ONE CAPSULE BY MOUTH TWICE A DAY NORA FABIAN DAILY DOSE = 2 SOLD: 04/26/2021 [facility] 0.5 mg 04/23/2021 12:00:00 AM EDT tablet 60 TAKE ONE TABLET BY MOUTH TWICE A DAY NEEDED MAXIMUM DAILY DOSE = 2 TAKE ONE TABLET BY MOUTH TWICE A DAY NEEDED MAXIMUM DAILY DOSE = 2 SOLD: 04/23/2021 [facility] 12-3 mg 04/23/2021 12:00:00 AM EDT film 56 PLACE ONE-HALF FILM UNDER THE TONGUE FOUR TIMES A DAY, MAXIMUM DAILY DOSE = 2 PLACE ONE-HALF FILM UNDER THE TONGUE FOUR TIMES A DAY, MAXIMUM DAILY DOSE = 2 SOLD: 04/23/2021 [facility] 200 mg 04/22/2021 12:00:00 AM EDT capsule 60 TAKE ONE CAPSULE BY MOUTH TWICE A DAY TAKE ONE CAPSULE BY MOUTH TWICE A DAY SOLD: 06/21/2021 [facility] 200 mg 04/22/2021 12:00:00 AM EDT capsule 60 TAKE ONE CAPSULE BY MOUTH TWICE A DAY TAKE ONE CAPSULE BY MOUTH TWICE A DAY SOLD: 04/23/2021 [facility] 75 mg 04/22/2021 12:00:00 AM EDT tablet extended release 24hr 30 TAKE ONE TABLET BY MOUTH EVERY DAY WITH FOOD TAKE ONE TABLET BY MOUTH EVERY DAY WITH FOOD SOLD: 04/23/2021 [facility] 75 mg 04/22/2021 12:00:00 AM EDT tablet extended release 24hr 30 TAKE ONE TABLET BY MOUTH EVERY DAY WITH FOOD TAKE ONE TABLET BY MOUTH EVERY DAY WITH FOOD SOLD: 06/01/2021 [facility] Methylphenidate Hydrochloride 5 MG Oral Tablet Methylp henidate HCl 5 MG Methylphenidate HCl 5 MG 04/20/2021 12:00:00 AM EDT 1.0 {tablet_on_an_empty_stomach} active Met hylphenidate HCl 5 MG eCW1 ([facility]) Methylphenidate Hydrochloride 5 MG Oral Tablet Methylp henidate HCl 5 MG Methylphenidate HCl 5 MG 04/20/2021 12:00:00 AM EDT 1.0 {tablet_on_an_empty_stomach} active Met hylphenidate HCl 5 MG eCW1 ([facility]) Methylphenidate Hydrochloride 5 MG Oral Tablet Methylp henidate HCl 5 MG Methylphenidate HCl 5 MG 04/20/2021 12:00:00 AM EDT 1.0 {tablet_on_an_empty_stomach} active Met hylphenidate HCl 5 MG eCW1 ([facility]) 5 mg 04/20/2021 12:00:00 AM EDT tablet 60 TAKE ONE TABLET BY MOUTH TWICE A DAY ON AN EMPTY STOMACH MAXIMUM DAILY DOSE = 2 TAKE ONE TABLET BY MOUTH TWICE A DAY ON AN EMPTY STOMACH MAXIMUM DAILY DOSE = 2 SOLD: 04/20/2021 [facility] Eszopiclone 2 MG Oral Tablet ESZOPICLONE 04/11/2021 12:00:00 AM EDT ta blet 30 TAKE ONE TABLET BY MOUTH IMMEDIATELY BEFORE BEDTIME MAXIMUM DAILY DOSE = 1 TABLET TAKE ONE TABLET BY MOUTH IMMEDIATELY BEF ORE BEDTIME MAXIMUM DAILY DOSE = 1 TABLET SOLD: 04/17/2021 [facility] 20.25 mg/1.25 gram (1.62 %) 04/11/2021 12:00:00 AM EDT gel in metered-dose pump 150 APPLY 4 PUMPS ONCE A DAY MAXIMUM DAILY DOSE = 4 PUMPS APPLY 4 PUMPS ONCE A DAY MAXIMUM DAILY DOSE = 4 PUMPS SOLD: 04/17/2021 [facility] 0.5 mg 03/31/2021 12:00:00 AM EDT tablet 60 TAKE ONE TABLET BY MOUTH TWICE A DAY NEEDED MAXIMUM DAILY DOSE = 2 TABLETS TAKE ONE TABLET BY MOUTH TWICE A DAY NEEDED MAXIMUM DAILY DOSE = 2 TABLETS SOLD: 03/31/2021 [facility] 200 mg 2021 12:00:00 AM EDT capsule 60 TAKE ONE CAPSULE BY MOUTH TWICE A DAY MAXIMUM DAILY DOSE = 2 CAPSULES TAKE ONE CAPSULE BY MOUTH TWICE A DAY MAXIMUM DAILY DOSE = 2 CAPSULES SOLD: 2021 [facility] 12-3 mg 03/19/2021 12:00:00 AM EDT film 56 PLACE ONE-HALF FILM UNDER THE TONGUE FOUR TIMES A DAY MAXIMUM DAILY DOSE = [address] ONE-HALF FILM UNDER THE TONGUE FOUR TIMES A DAY MAXIMUM DAILY DOSE = 2 FILMS SOLD: 03/23/2021 [facility] 10 mg 03/13/2021 12:00:00 AM EDT capsule, ER biphasic 30 -70 30 TAKE ONE CAPSULE BY MOUTH EVERY MORNING MAXIMUM DAILY DOSE = 1 CAP TAKE ONE CAPSULE BY MOUTH EVERY MORNING MAXIMUM DAILY DOSE = 1 CAP SOLD: 03/13/2021 [facility] Methylphenidate HCl ER (CD) 10 MG Methylphenidate HCl ER (CD ) 10 MG 03/13/2021 12:00:00 AM EDT active Methylph enidate HCl ER (CD) 10 MG eCW1 ([facility]) Methylphenidate HCl ER (CD) 10 MG Methylphenidate HCl ER (CD ) 10 MG 03/13/2021 12:00:00 AM EDT active e CW1 ([facility]) Methylphenidate HCl ER (CD) 10 MG Methylphenidate HCl ER (CD ) 10 MG 03/13/2021 12:00:00 AM EDT active Methylph enidate HCl ER (CD) 10 MG eCW1 ([facility]) Methylphenidate HCl ER (CD) 10 MG Methylphenidate HCl ER (CD ) 10 MG 03/13/2021 12:00:00 AM EDT active Methylph enidate HCl ER (CD) 10 MG eCW1 ([facility]) 5 mg 03/06/2021 12:00:00 AM EDT tablet 60 TAKE ONE TABLET BY MOUTH TWICE A DAY ON AN EMPTY STOMACH MAXIMUM DAILY DOSE = 2 TABLETS TAKE ONE TABLET BY MOUTH TWICE A DAY ON AN EMPTY STOMACH MAXIMUM DAILY DOSE = 2 TABLETS SOLD: 03/06/2021 [facility] Methylphenidate Hydrochloride 5 MG Oral Tablet Methylp henidate HCl 5 MG Methylphenidate HCl 5 MG 03/03/2021 12:00:00 AM EDT 1.0 {tablet_on_an_empty_stomach} active Met hylphenidate HCl 5 MG eCW1 ([facility]) Eszopiclone 2 MG Oral Tablet ESZOPICLONE 02/27/2021 12:00:00 AM EDT ta blet 30 TAKE ONE TABLET BY MOUTH IMMEDIATELY BEFORE BEDTIME - MAXIMUM DAILY DOSE = 1 TABLET TAKE ONE TABLET BY MOUTH IMMEDIATELY BEF ORE BEDTIME - MAXIMUM DAILY DOSE = 1 TABLET SOLD: 03/01/2021 [facility] 20.25 mg/1.25 gram (1.62 %) 02/24/2021 12:00:00 AM EDT gel in metered-dose pump 150 APPLY 4 PUMPS TO THE SKIN ONCE D AILY MAXIMUM DAILY DOSE = 4 PUMPS APPLY 4 PUMPS TO THE SKIN ONCE DAILY MAXIMUM DAILY DOSE = 4 PUMPS SOLD: 03/01/2021 [facility] 500 mg 02/21/2021 12:00:00 AM EDT tablet,delayed release (DR/EC) 180 TAKE ONE TABLET BY MOUTH ONCE DAILY FOR 7 DAYS THEN TAKE ONE TABLET TWICE A DAY TAKE ONE TABLET BY MOUTH ONCE DAILY FOR 7 DAYS THEN TAKE ONE TABLET TWICE A DAY SOLD: 02/21/2021 [facility] 12-3 mg 02/19/2021 12:00:00 AM EDT film 56 PLACE ONE-HALF FILM UNDER THE TONGUE FOUR TIMES A DAY MAXIMUM DAILY DOSE = [address] ONE-HALF FILM UNDER THE TONGUE FOUR TIMES A DAY MAXIMUM DAILY DOSE = 2 FILMS SOLD: 02/19/2021 [facility] 75 mg 02/19/2021 12:00:00 AM EDT tablet extended release 24hr 30 TAKE ONE TABLET BY MOUTH EVERY DAY WITH FOOD TAKE ONE TABLET BY MOUTH EVERY DAY WITH FOOD SOLD: 04/01/2021 [facility] 200 mg 02/19/2021 12:00:00 AM EDT capsule 60 TAKE ONE CAPSULE BY MOUTH TWICE A DAY MAXIMUM DAILY DOSE = 2 TAKE ONE CAPSULE BY MOUTH TWICE A DAY NORA FABIAN DAILY DOSE = 2 SOLD: 02/19/[address] [facility] 75 mg 02/19/2021 12:00:00 AM EDT tablet extended release 24hr 30 TAKE ONE TABLET BY MOUTH EVERY DAY WITH FOOD TAKE ONE TABLET BY MOUTH EVERY DAY WITH FOOD SOLD: 02/21/2021 [facility] 200 mg 02/19/2021 12:00:00 AM EDT capsule 60 TAKE ONE CAPSULE BY MOUTH TWICE A DAY TAKE ONE CAPSULE BY MOUTH TWICE A DAY SOLD: 02/21/2021 [facility] atorvastatin 20 MG Oral Tablet ATORVASTATIN CALCIUM 02/19/2021 1 2:00:00 AM EDT tablet 90 TAKE ONE TABLET BY MOUTH EVERY D AY TAKE ONE TABLET BY MOUTH EVERY DAY SOLD: 02/21/2021 [facility] Sulfasalazine 500 MG Delayed Release Oral Tablet Sulfasalazi ne 500 MG 02/17/2021 12:00:00 AM EDT 1.0 {tablet} active S ulfasalazine 500 MG eCW1 ([facility]) Sulfasalazine 500 MG Delayed Release Oral Tablet Sulfasalazi ne 500 MG 02/17/2021 12:00:00 AM EDT 1.0 {tablet} active S ulfasalazine 500 MG eCW1 ([facility]) Sulfasalazine 500 MG Delayed Release Oral Tablet sulfa SALAzine 500 MG sulfaSALAzine 500 MG 02/17/2021 12:00:00 AM EDT 1.0 {tablet} active sulfaSALAzine 500 MG eCW1 ([facility]) Sulfasalazine 500 MG Delayed Release Oral Tablet sulfa SALAzine 500 MG sulfaSALAzine 500 MG 02/17/2021 12:00:00 AM EDT 1.0 {tablet} active sulfaSALAzine 500 MG eCW1 ([facility]) Sulfasalazine 500 MG Delayed Release Oral Tablet Sulfasalazi ne 500 MG 02/17/2021 12:00:00 AM EDT 1.0 {tablet} active S ulfasalazine 500 MG eCW1 ([facility]) Sulfasalazine 500 MG Delayed Release Oral Tablet sulfa SALAzine 500 MG sulfaSALAzine 500 MG 02/17/2021 12:00:00 AM EDT 1.0 {tablet} active sulfaSALAzine 500 MG eCW1 ([facility]) Sulfasalazine 500 MG Delayed Release Oral Tablet sulfa SALAzine 500 MG sulfaSALAzine 500 MG 02/17/2021 12:00:00 AM EDT 1.0 {tablet} active sulfaSALAzine 500 MG eCW1 ([facility]) Sulfasalazine 500 MG Delayed Release Oral Tablet sulfa SALAzine 500 MG sulfaSALAzine 500 MG 02/17/2021 12:00:00 AM EDT 1.0 {tablet} active sulfaSALAzine 500 MG eCW1 ([facility]) Sulfasalazine 500 MG Delayed Release Oral Tablet sulfa SALAzine 500 MG sulfaSALAzine 500 MG 02/17/2021 12:00:00 AM EDT 1.0 {tablet} active sulfaSALAzine 500 MG eCW1 ([facility]) Sulfasalazine 500 MG Delayed Release Oral Tablet sulfa SALAzine 500 MG sulfaSALAzine 500 MG 02/17/2021 12:00:00 AM EDT 1.0 {tablet} active sulfaSALAzine 500 MG eCW1 ([facility]) Sulfasalazine 500 MG Delayed Release Oral Tablet sulfa SALAzine 500 MG sulfaSALAzine 500 MG 02/17/2021 12:00:00 AM EDT 1.0 {tablet} active sulfaSALAzine 500 MG eCW1 ([facility]) Sulfasalazine 500 MG Delayed Release Oral Tablet sulfa SALAzine 500 MG sulfaSALAzine 500 MG 02/17/2021 12:00:00 AM EDT 1.0 {tablet} active eCW1 ([facility]) Sulfasalazine 500 MG Delayed Release Oral Tablet sulfa SALAzine 500 MG sulfaSALAzine 500 MG 02/17/2021 12:00:00 AM EDT 1.0 {tablet} active sulfaSALAzine 500 MG eCW1 ([facility]) Sulfasalazine 500 MG Delayed Release Oral Tablet sulfa SALAzine 500 MG sulfaSALAzine 500 MG 02/17/2021 12:00:00 AM EDT 1.0 {tablet} active sulfaSALAzine 500 MG eCW1 ([facility]) Sulfasalazine 500 MG Delayed Release Oral Tablet Sulfasalazi ne 500 MG 02/17/2021 12:00:00 AM EDT 1.0 {tablet} active S ulfasalazine 500 MG eCW1 ([facility]) Sulfasalazine 500 MG Delayed Release Oral Tablet sulfa SALAzine 500 MG sulfaSALAzine 500 MG 02/17/2021 12:00:00 AM EDT 1.0 {tablet} active sulfaSALAzine 500 MG eCW1 ([facility]) Sulfasalazine 500 MG Delayed Release Oral Tablet Sulfasalazi ne 500 MG 02/17/2021 12:00:00 AM EDT 1.0 {tablet} active eCW1 ([facility]) Sulfasalazine 500 MG Delayed Release Oral Tablet Sulfasalazi ne 500 MG 02/17/2021 12:00:00 AM EDT 1.0 {tablet} active S ulfasalazine 500 MG eCW1 ([facility]) Sulfasalazine 500 MG Delayed Release Oral Tablet sulfa SALAzine 500 MG sulfaSALAzine 500 MG 02/17/2021 12:00:00 AM EDT 1.0 {tablet} active sulfaSALAzine 500 MG eCW1 ([facility]) Sulfasalazine 500 MG Delayed Release Oral Tablet Sulfasalazi ne 500 MG 02/17/2021 12:00:00 AM EDT 1.0 {tablet} active S ulfasalazine 500 MG eCW1 ([facility]) Sulfasalazine 500 MG Delayed Release Oral Tablet sulfa SALAzine 500 MG sulfaSALAzine 500 MG 02/17/2021 12:00:00 AM EDT 1.0 {tablet} active sulfaSALAzine 500 MG eCW1 ([facility]) Sulfasalazine 500 MG Delayed Release Oral Tablet sulfa SALAzine 500 MG sulfaSALAzine 500 MG 02/17/2021 12:00:00 AM EDT 1.0 {tablet} active sulfaSALAzine 500 MG eCW1 ([facility]) Sulfasalazine 500 MG Delayed Release Oral Tablet sulfa SALAzine 500 MG sulfaSALAzine 500 MG 02/17/2021 12:00:00 AM EDT 1.0 {tablet} active sulfaSALAzine 500 MG eCW1 ([facility]) Sulfasalazine 500 MG Delayed Release Oral Tablet Sulfasalazi ne 500 MG 02/17/2021 12:00:00 AM EDT 1.0 {tablet} active S ulfasalazine 500 MG eCW1 ([facility]) Sulfasalazine 500 MG Delayed Release Oral Tablet sulfa SALAzine 500 MG sulfaSALAzine 500 MG 02/17/2021 12:00:00 AM EDT 1.0 {tablet} active sulfaSALAzine 500 MG eCW1 ([facility]) Sulfasalazine 500 MG Delayed Release Oral Tablet sulfa SALAzine 500 MG sulfaSALAzine 500 MG 02/17/2021 12:00:00 AM EDT 1.0 {tablet} active sulfaSALAzine 500 MG eCW1 ([facility]) Sulfasalazine 500 MG Delayed Release Oral Tablet sulfa SALAzine 500 MG sulfaSALAzine 500 MG 02/17/2021 12:00:00 AM EDT 1.0 {tablet} active sulfaSALAzine 500 MG eCW1 ([facility]) Sulfasalazine 500 MG Delayed Release Oral Tablet Sulfasalazi ne 500 MG 02/17/2021 12:00:00 AM EDT 1.0 {tablet} active S ulfasalazine 500 MG eCW1 ([facility]) Sulfasalazine 500 MG Delayed Release Oral Tablet sulfa SALAzine 500 MG sulfaSALAzine 500 MG 02/17/2021 12:00:00 AM EDT 1.0 {tablet} active sulfaSALAzine 500 MG eCW1 ([facility]) Sulfasalazine 500 MG Delayed Release Oral Tablet sulfa SALAzine 500 MG sulfaSALAzine 500 MG 02/17/2021 12:00:00 AM EDT 1.0 {tablet} active sulfaSALAzine 500 MG eCW1 ([facility]) Methylphenidate Hydrochloride 5 MG Oral Tablet Methylp henidate HCl 5 MG Methylphenidate HCl 5 MG 02/05/2021 12:00:00 AM EDT 1.0 {tablet_on_an_empty_stomach} active Met hylphenidate HCl 5 MG eCW1 ([facility]) Methylphenidate Hydrochloride 5 MG Oral Tablet Methylp henidate HCl 5 MG Methylphenidate HCl 5 MG 02/05/2021 12:00:00 AM EDT 1.0 {tablet_on_an_empty_stomach} active Met hylphenidate HCl 5 MG eCW1 ([facility]) Methylphenidate Hydrochloride 5 MG Oral Tablet Methylp henidate HCl 5 MG Methylphenidate HCl 5 MG 02/05/2021 12:00:00 AM EDT 1.0 {tablet_on_an_empty_stomach} active Met hylphenidate HCl 5 MG eCW1 ([facility]) 5 mg 02/05/2021 12:00:00 AM EDT tablet 60 TAKE ONE TABLET BY MOUTH TWICE A DAY ON AN EMPTY STOMACH MAXIMUM DAILY DOSE = 2 TAKE ONE TABLET BY MOUTH TWICE A DAY ON AN EMPTY STOMACH MAXIMUM DAILY DOSE = 2 SOLD: 02/05/2021 [facility] Methylphenidate Hydrochloride 5 MG Oral Tablet Methylp henidate HCl 5 MG Methylphenidate HCl 5 MG 02/05/2021 12:00:00 AM EDT 1.0 {tablet_on_an_empty_stomach} active Met hylphenidate HCl 5 MG eCW1 ([facility]) Methylphenidate Hydrochloride 5 MG Oral Tablet Methylp henidate HCl 5 MG Methylphenidate HCl 5 MG 02/05/2021 12:00:00 AM EDT 1.0 {tablet_on_an_empty_stomach} active Met hylphenidate HCl 5 MG eCW1 ([facility]) Methylphenidate Hydrochloride 5 MG Oral Tablet Methylp henidate HCl 5 MG Methylphenidate HCl 5 MG 02/05/2021 12:00:00 AM EDT 1.0 {tablet_on_an_empty_stomach} active Met hylphenidate HCl 5 MG eCW1 ([facility]) Eszopiclone 2 MG Oral Tablet ESZOPICLONE 01/28/2021 12:00:00 AM EDT ta blet 30 TAKE ONE TABLET BY MOUTH IMMEDIATELY BEFORE BEDTIME MAXIMUM DAILY DOSE = 1 TAKE ONE TABLET BY MOUTH IMMEDIATELY BEFORE BEDTIME MAXIMUM DAILY DOSE = 1 SOLD: 01/28/2021 [facility] 0.5 mg 01/26/2021 12:00:00 AM EDT tablet 60 TAKE ONE TABLET BY MOUTH TWICE A DAY NEEDED MAXIMUM DAILY DOSE = 2 TAKE ONE TABLET BY MOUTH TWICE A DAY NEEDED MAXIMUM DAILY DOSE = 2 SOLD: 01/26/2021 [facility] 125 mcg 01/23/2021 12:00:00 AM EDT tablet 30 TAKE ONE TABLET BY MOUTH EVERY DAY TAKE ONE TABLET BY MOUTH EVERY DAY SOLD: 04/01/2021 [facility] 125 mcg 01/23/2021 12:00:00 AM EDT tablet 30 TAKE ONE TABLET BY MOUTH EVERY DAY TAKE ONE TABLET BY MOUTH EVERY DAY SOLD: 01/23/2021 [facility] 125 mcg 01/23/2021 12:00:00 AM EDT tablet 30 TAKE ONE TABLET BY MOUTH EVERY DAY TAKE ONE TABLET BY MOUTH EVERY DAY SOLD: 03/01/2021 [facility] 125 mcg 01/23/2021 12:00:00 AM EDT tablet 30 TAKE ONE TABLET BY MOUTH EVERY DAY TAKE ONE TABLET BY MOUTH EVERY DAY SOLD: 05/02/2021 [facility] 200 mg 01/21/2021 12:00:00 AM EDT capsule 60 TAKE ONE CAPSULE BY MOUTH TWICE A DAY MAXIMUM DAILY DOSE = 2 CAPSULES TAKE ONE CAPSULE BY MOUTH TWICE A DAY MAXIMUM DAILY DOSE = 2 CAPSULES SOLD: 01/21/2021 [facility] 12-3 mg 01/20/2021 12:00:00 AM EDT film [address] PLACE ONE-HALF FILM UNDER THE TONGUE FOUR TIMES A DAY MAXIMUM DAILY DOSE = [address] ONE-HALF FILM UNDER THE TONGUE FOUR TIMES A DAY MAXIMUM DAILY DOSE = 2 FILMS SOLD: 01/20/2021 [facility] Methylphenidate Hydrochloride 5 MG Oral Tablet Methylp henidate HCl 5 MG Methylphenidate HCl 5 MG 01/07/2021 12:00:00 AM EST 1.0 {tablet_on_an_empty_stomach} active Met hylphenidate HCl 5 MG eCW1 ([facility]) 5 mg 01/07/2021 12:00:00 AM EST tablet 60 TAKE ONE TABLET BY MOUTH TWICE A DAY EMPTY STOMACH MAXIMUM DAILY DOSE = 2 TAKE ONE TABLET BY MOUTH TWICE A DAY EMPTY STOMACH MAXIMUM DAILY DOSE = 2 SOLD: 01/07/2021 [facility] Methylphenidate Hydrochloride 5 MG Oral Tablet Methylp henidate HCl 5 MG Methylphenidate HCl 5 MG 01/07/2021 12:00:00 AM EST 1.0 {tablet_on_an_empty_stomach} active Met hylphenidate HCl 5 MG eCW1 ([facility]) Methylphenidate Hydrochloride 5 MG Oral Tablet Methylp henidate HCl 5 MG Methylphenidate HCl 5 MG 01/07/2021 12:00:00 AM EST 1.0 {tablet_on_an_empty_stomach} active Met hylphenidate HCl 5 MG eCW1 ([facility]) Methylphenidate Hydrochloride 5 MG Oral Tablet Methylp henidate HCl 5 MG Methylphenidate HCl 5 MG 01/07/2021 12:00:00 AM EST 1.0 {tablet_on_an_empty_stomach} active Met hylphenidate HCl 5 MG eCW1 ([facility]) 125 mcg 01/01/2021 12:00:00 AM EST tablet 30 TAKE ONE TABLET BY MOUTH EVERY DAY TAKE ONE TABLET BY MOUTH EVERY DAY SOLD: 06/01/2021 [facility] 125 mcg 01/01/2021 12:00:00 AM EST tablet 30 TAKE ONE TABLET BY MOUTH EVERY DAY TAKE ONE TABLET BY MOUTH EVERY DAY SOLD: 01/02/2021 [facility] Eszopiclone 2 MG Oral Tablet ESZOPICLONE 12/30/2020 12:00:00 AM EST ta blet 30 TAKE 1 TABLET BY MOUTH IMMEDIATELY BEFORE BEDTIME MAXIMUM DAILY DOSE = 1 TAKE 1 TABLET BY MOUTH IMMEDIATELY BEFORE BEDTIME MAXIMUM DAILY DOSE = 1 SOLD: 12/31/2020 [facility] 20.25 mg/1.25 gram (1.62 %) 12/30/2020 12:00:00 AM EST gel in metered-dose pump 150 APPLY 4 PUMPS TO THE SKIN ONCE D AILY MAXIMUM DAILY DOSE = 4 PUMPS APPLY 4 PUMPS TO THE SKIN ONCE DAILY MAXIMUM DAILY DOSE = 4 PUMPS SOLD: 12/31/2020 [facility] 0.5 mg 12/27/2020 12:00:00 AM EST tablet 60 TAKE ONE TABLET BY MOUTH TWICE A DAY NEEDED MAXIMUM DAILY DOSE =2 TAKE ONE TABLET BY MOUTH TWICE A DAY NEEDED MAXIMUM DAILY DOSE =2 SOLD: 12/27/2020 [facility] 12-3 mg 12/27/2020 12:00:00 AM EST film 56 DISSOLVE 1/2 FILM UNDER THE TONGUE FOUR TIMES A DAY MAXIMUM DAILY DOSE = 2 DISSOLVE 1/2 FILM UNDER THE TONGUE FOUR TIMES A DAY MAXIMUM DAILY DOSE = 2 SOLD: 12/27/2020 [facility] 200 mg 12/20/2020 12:00:00 AM EST capsule 60 TAKE ONE CAPSULE BY MOUTH TWICE A DAY MAXIMUM DAILY DOSE = 2 TAKE ONE CAPSULE BY MOUTH TWICE A DAY MA XIMUM DAILY DOSE = 2 SOLD: 12/23/2020 [facility] Methylphenidate Hydrochloride 5 MG Oral Tablet Methylp henidate HCl 5 MG Methylphenidate HCl 5 MG 12/12/2020 12:00:00 AM EST 1.0 {tablet_on_an_empty_stomach} active Met hylphenidate HCl 5 MG eCW1 ([facility]) Methylphenidate Hydrochloride 5 MG Oral Tablet Methylp henidate HCl 5 MG Methylphenidate HCl 5 MG 12/12/2020 12:00:00 AM EST 1.0 {tablet_on_an_empty_stomach} active Met hylphenidate HCl 5 MG eCW1 ([facility]) Methylphenidate Hydrochloride 5 MG Oral Tablet Methylp henidate HCl 5 MG Methylphenidate HCl 5 MG 12/12/2020 12:00:00 AM EST 1.0 {tablet_on_an_empty_stomach} active Met hylphenidate HCl 5 MG eCW1 ([facility]) 5 mg 12/12/2020 12:00:00 AM EST tablet 60 TAKE ONE TABLET BY MOUTH TWICE A DAY ON AN EMPTY STOMACH MAXIMUM DAILY DOSE = 2 TAKE ONE TABLET BY MOUTH TWICE A DAY ON AN EMPTY STOMACH MAXIMUM DAILY DOSE = 2 SOLD: 12/13/2020 [facility] Methylphenidate Hydrochloride 5 MG Oral Tablet Methylp henidate HCl 5 MG Methylphenidate HCl 5 MG 12/12/2020 12:00:00 AM EST 1.0 {tablet_on_an_empty_stomach} active Met hylphenidate HCl 5 MG eCW1 ([facility]) Methylphenidate Hydrochloride 5 MG Oral Tablet Methylp henidate HCl 5 MG Methylphenidate HCl 5 MG 12/12/2020 12:00:00 AM EST 1.0 {tablet_on_an_empty_stomach} active Met hylphenidate HCl 5 MG eCW1 ([facility]) Methylphenidate Hydrochloride 5 MG Oral Tablet Methylp henidate HCl 5 MG Methylphenidate HCl 5 MG 12/12/2020 12:00:00 AM EST 1.0 {tablet_on_an_empty_stomach} active Met hylphenidate HCl 5 MG eCW1 ([facility]) Methylphenidate Hydrochloride 5 MG Oral Tablet Methylp henidate HCl 5 MG Methylphenidate HCl 5 MG 12/12/2020 12:00:00 AM EST 1.0 {tablet_on_an_empty_stomach} active Met hylphenidate HCl 5 MG eCW1 ([facility]) 8 mg 12/09/2020 12:00:00 AM EST tablet, sublingual 56 TAKE 1/2 TABLET UNDER THE TONGUE FOUR TIMES A DAY MAXIMUM DAILY DOSE = 2 TABLETS TAKE 1/2 TABLET UNDER THE TONGUE FOUR TIMES A DAY MAXIMUM DAILY DOSE = 2 TABLETS SOLD: 12/09/2020 [facility] Diclofenac Sodium 0.01 MG/MG Topical Gel [Voltaren] Voltaren 1 % Voltaren 1 % 12/02/2020 12:00:00 AM EST active Voltaren 1 % eCW1 ([facility]) Diclofenac Sodium 0.01 MG/MG Topical Gel [Voltaren] Voltaren 1 % Voltaren 1 % 12/02/2020 12:00:00 AM EST active Voltaren 1 % eCW1 ([facility]) Voltaren 1 % UNK 12/02/2020 12:00:00 AM EST activ e Voltaren 1 % eCW1 ([facility]) Diclofenac Sodium 0.01 MG/MG Topical Gel [Voltaren] Voltaren 1 % Voltaren 1 % 12/02/2020 12:00:00 AM EST active Voltaren 1 % eCW1 ([facility]) Diclofenac Sodium 0.01 MG/MG Topical Gel [Voltaren] Voltaren 1 % Voltaren 1 % 12/02/2020 12:00:00 AM EST active Voltaren 1 % eCW1 ([facility]) Diclofenac Sodium 0.01 MG/MG Topical Gel [Voltaren] Voltaren 1 % Voltaren 1 % 12/02/2020 12:00:00 AM EST active Voltaren 1 % eCW1 ([facility]) Diclofenac Sodium 0.01 MG/MG Topical Gel [Voltaren] Voltaren 1 % Voltaren 1 % 12/02/2020 12:00:00 AM EST active eCW1 ([facility]) Diclofenac Sodium 0.01 MG/MG Topical Gel [Voltaren] Voltaren 1 % Voltaren 1 % 12/02/2020 12:00:00 AM EST active Voltaren 1 % eCW1 ([facility]) Diclofenac Sodium 0.01 MG/MG Topical Gel [Voltaren] Voltaren 1 % Voltaren 1 % 12/02/2020 12:00:00 AM EST active Voltaren 1 % eCW1 ([facility]) Diclofenac Sodium 0.01 MG/MG Topical Gel [Voltaren] Voltaren 1 % Voltaren 1 % 12/02/2020 12:00:00 AM EST active Voltaren 1 % eCW1 ([facility]) Voltaren 1 % UNK 12/02/2020 12:00:00 AM EST activ e Voltaren 1 % eCW1 ([facility]) Diclofenac Sodium 0.01 MG/MG Topical Gel [Voltaren] Voltaren 1 % Voltaren 1 % 12/02/2020 12:00:00 AM EST active Voltaren 1 % eCW1 ([facility]) Diclofenac Sodium 0.01 MG/MG Topical Gel [Voltaren] Voltaren 1 % Voltaren 1 % 12/02/2020 12:00:00 AM EST active Voltaren 1 % eCW1 ([facility]) Diclofenac Sodium 0.01 MG/MG Topical Gel [Voltaren] Voltaren 1 % Voltaren 1 % 12/02/2020 12:00:00 AM EST active Voltaren 1 % eCW1 ([facility]) Diclofenac Sodium 0.01 MG/MG Topical Gel [Voltaren] Voltaren 1 % Voltaren 1 % 12/02/2020 12:00:00 AM EST active Voltaren 1 % eCW1 ([facility]) Voltaren 1 % UNK 12/02/2020 12:00:00 AM EST activ e Voltaren 1 % eCW1 ([facility]) Diclofenac Sodium 0.01 MG/MG Topical Gel [Voltaren] Voltaren 1 % Voltaren 1 % 12/02/2020 12:00:00 AM EST active Voltaren 1 % eCW1 ([facility]) Voltaren 1 % UNK 12/02/2020 12:00:00 AM EST activ e Voltaren 1 % eCW1 ([facility]) Diclofenac Sodium 0.01 MG/MG Topical Gel [Voltaren] Voltaren 1 % Voltaren 1 % 12/02/2020 12:00:00 AM EST active Voltaren 1 % eCW1 ([facility]) Diclofenac Sodium 0.01 MG/MG Topical Gel [Voltaren] Voltaren 1 % Voltaren 1 % 12/02/2020 12:00:00 AM EST active Voltaren 1 % eCW1 ([facility]) Voltaren 1 % UNK 12/02/2020 12:00:00 AM EST activ e Voltaren 1 % eCW1 ([facility]) Diclofenac Sodium 0.01 MG/MG Topical Gel [Voltaren] Voltaren 1 % Voltaren 1 % 12/02/2020 12:00:00 AM EST active Voltaren 1 % eCW1 ([facility]) Diclofenac Sodium 0.01 MG/MG Topical Gel [Voltaren] Voltaren 1 % Voltaren 1 % 12/02/2020 12:00:00 AM EST active eCW1 ([facility]) Voltaren 1 % UNK 12/02/2020 12:00:00 AM EST activ e Voltaren 1 % eCW1 ([facility]) 8-2 mg 12/02/2020 12:00:00 AM EST film 56 DISSOLVE 1/2 FILM UNDER THE TONGUE FOUR TIMES A DAY FOR PAIN MAXIMUM DAILY DOSE = 2 DISSOLVE 1/2 FILM UNDER THE TONGUE FOUR TIMES A DAY FOR PAIN MAXIMUM DAILY DOSE = 2 SOLD: 12/02/2020 [facility] Voltaren 1 % UNK 12/02/2020 12:00:00 AM EST activ e Voltaren 1 % eCW1 ([facility]) Diclofenac Sodium 0.01 MG/MG Topical Gel [Voltaren] Voltaren 1 % Voltaren 1 % 12/02/2020 12:00:00 AM EST active Voltaren 1 % eCW1 ([facility]) Diclofenac Sodium 0.01 MG/MG Topical Gel [Voltaren] Voltaren 1 % Voltaren 1 % 12/02/2020 12:00:00 AM EST active Voltaren 1 % eCW1 ([facility]) Diclofenac Sodium 0.01 MG/MG Topical Gel [Voltaren] Voltaren 1 % Voltaren 1 % 12/02/2020 12:00:00 AM EST active Voltaren 1 % eCW1 ([facility]) Diclofenac Sodium 0.01 MG/MG Topical Gel [Voltaren] Voltaren 1 % Voltaren 1 % 12/02/2020 12:00:00 AM EST active Voltaren 1 % eCW1 ([facility]) Diclofenac Sodium 0.01 MG/MG Topical Gel [Voltaren] Voltaren 1 % Voltaren 1 % 12/02/2020 12:00:00 AM EST active Voltaren 1 % eCW1 ([facility]) Diclofenac Sodium 0.01 MG/MG Topical Gel [Voltaren] Voltaren 1 % Voltaren 1 % 12/02/2020 12:00:00 AM EST active Voltaren 1 % eCW1 ([facility]) Diclofenac Sodium 0.01 MG/MG Topical Gel [Voltaren] Voltaren 1 % Voltaren 1 % 12/02/2020 12:00:00 AM EST active Voltaren 1 % eCW1 ([facility]) Diclofenac Sodium 0.01 MG/MG Topical Gel [Voltaren] Voltaren 1 % Voltaren 1 % 12/02/2020 12:00:00 AM EST active Voltaren 1 % eCW1 ([facility]) Diclofenac Sodium 0.01 MG/MG Topical Gel [Voltaren] Voltaren 1 % Voltaren 1 % 12/02/2020 12:00:00 AM EST active Voltaren 1 % eCW1 ([facility]) Diclofenac Sodium 0.01 MG/MG Topical Gel [Voltaren] Voltaren 1 % Voltaren 1 % 12/02/2020 12:00:00 AM EST active Voltaren 1 % eCW1 ([facility]) Diclofenac Sodium 0.01 MG/MG Topical Gel [Voltaren] Voltaren 1 % Voltaren 1 % 12/02/2020 12:00:00 AM EST active Voltaren 1 % eCW1 ([facility]) Diclofenac Sodium 0.01 MG/MG Topical Gel [Voltaren] Voltaren 1 % Voltaren 1 % 12/02/2020 12:00:00 AM EST active Voltaren 1 % eCW1 ([facility]) Diclofenac Sodium 0.01 MG/MG Topical Gel [Voltaren] Voltaren 1 % Voltaren 1 % 12/02/2020 12:00:00 AM EST active Voltaren 1 % eCW1 ([facility]) 1 % 12/02/2020 12:00:00 AM EST gel 100 APPLY 1 GRAM TO AFFECTED AREA OF NECK EVERY 6 HOURS NEEDED FOR 10 DAYS APPLY 1 GRAM TO AFFECTED AREA OF NECK EV ANALISA 6 HOURS NEEDED FOR 10 DAYS SOLD: 12/09/2020 [facility] Diclofenac Sodium 0.01 MG/MG Topical Gel [Voltaren] Voltaren 1 % Voltaren 1 % 12/02/2020 12:00:00 AM EST active Voltaren 1 % eCW1 ([facility]) Diclofenac Sodium 0.01 MG/MG Topical Gel [Voltaren] Voltaren 1 % Voltaren 1 % 12/02/2020 12:00:00 AM EST active Voltaren 1 % eCW1 ([facility]) Diclofenac Sodium 0.01 MG/MG Topical Gel [Voltaren] Voltaren 1 % Voltaren 1 % 12/02/2020 12:00:00 AM EST active Voltaren 1 % eCW1 ([facility]) Voltaren 1 % UNK 12/02/2020 12:00:00 AM EST activ e Voltaren 1 % eCW1 ([facility]) 0.5 mg 11/27/2020 12:00:00 AM EST tablet 60 TAKE ONE TABLET BY MOUTH TWICE A DAY NEEDED MAXIMUM DAILY DOSE = 2 TAKE ONE TABLET BY MOUTH TWICE A DAY NEEDED MAXIMUM DAILY DOSE = 2 SOLD: 11/28/2020 [facility] 200 mg 11/27/2020 12:00:00 AM EST capsule 60 TAKE ONE CAPSULE BY MOUTH TWICE A DAY TAKE ONE CAPSULE BY MOUTH TWICE A DAY SOLD: 11/28/2020 [facility] Eszopiclone 2 MG Oral Tablet ESZOPICLONE 11/27/2020 12:00:00 AM EST ta blet 30 TAKE ONE TABLET BY MOUTH EVERY DAY IMMEDIATELY BEFORE BEDTIME MAXIMUM DAILY DOSE = 1 TAKE ONE TABLET BY MOUTH EVERY DAY IMMED IATELY BEFORE BEDTIME MAXIMUM DAILY DOSE = 1 SOLD: 11/28/2020 [facility] 20.25 mg/1.25 gram (1.62 %) 11/05/2020 12:00:00 AM EST gel in metered-dose pump 150 APPLY 4 PUMPS ONCE DAILY MAXIMUM DAILY DOSE = 4 PUMPS APPLY 4 PUMPS ONCE DAILY MAXIMUM DAILY DOSE = 4 PUMPS SOLD: 11/11/2020 [facility] 12-3 mg 11/04/2020 12:00:00 AM EST film 56 PLACE ONE HALF FILM UNDER THE TONGUE FOUR TIMES A DAY MAXIMUM DAILY DOSE = [address] ONE HALF FILM UNDER THE TONGUE FOUR TIMES A DAY MAXIMUM DAILY DOSE = 2 FILMS SOLD: 11/04/2020 [facility] Methylphenidate Hydrochloride 10 MG Oral Tablet Methyl phenidate HCl 10 MG Methylphenidate HCl 10 MG 11/03/2020 12:00:00 AM EST 1.0 {tablet} active Methylphenidate HCl 10 MG eCW1 ( [facility]) Methylphenidate Hydrochloride 10 MG Oral Tablet Methyl phenidate HCl 10 MG Methylphenidate HCl 10 MG 11/03/2020 12:00:00 AM EST 1.0 {tablet} active Methylphenidate HCl 10 MG eCW1 ( [facility]) 10 mg 11/03/2020 12:00:00 AM EST tablet 60 TAKE ONE TABLET BY MOUTH TWICE A DAY MAXIMUM DAILY DOSE = 2 TAKE ONE TABLET BY MOUTH TWICE A DAY MAX IMUM DAILY DOSE = 2 SOLD: 11/04/2020 [facility] Eszopiclone 2 MG Oral Tablet ESZOPICLONE 10/21/2020 12:00:00 AM EST ta blet 30 TAKE 1 TABLET BY MOUTH IMMEDIATELY BEFORE BEDTIME MAXIMUM DAILY DOSE = 1 TAKE 1 TABLET BY MOUTH IMMEDIATELY BEFORE BEDTIME MAXIMUM DAILY DOSE = 1 SOLD: 10/23/2020 [facility] 0.5 mg 10/21/2020 12:00:00 AM EST tablet 60 TAKE ONE TABLET BY MOUTH TWICE A DAY NEEDED MAXIMUM DAILY DOSE = 2 TAKE ONE TABLET BY MOUTH TWICE A DAY NEEDED MAXIMUM DAILY DOSE = 2 SOLD: 10/23/2020 [facility] Methylphenidate Hydrochloride 10 MG Oral Tablet Methyl phenidate HCl 10 MG Methylphenidate HCl 10 MG 10/20/2020 12:00:00 AM EST active Methylphenidate HCl 10 MG eCW1 ([facility]) Methylphenidate Hydrochloride 10 MG Oral Tablet Methyl phenidate HCl 10 MG Methylphenidate HCl 10 MG 10/20/2020 12:00:00 AM EST active Methylphenidate HCl 10 MG eCW1 ([facility]) Methylphenidate Hydrochloride 10 MG Oral Tablet Methyl phenidate HCl 10 MG Methylphenidate HCl 10 MG 10/20/2020 12:00:00 AM EST active Methylphenidate HCl 10 MG eCW1 ([facility]) 10 mg 10/20/2020 12:00:00 AM EST tablet 30 TAKE ONE-HALF TABLET BY MOUTH TWICE A DAY ON AN EMPTY STOMACH - MAXIMUM DAILY DOSE = 2 TABLETS TAKE ONE-HALF TABLET BY MOUTH TWICE A DAY ON AN EMPTY STOMACH - MAXIMUM DAILY DOSE = 2 TABLETS SOLD: 10/21/2020 [facility] Methylphenidate Hydrochloride 10 MG Oral Tablet Methyl phenidate HCl 10 MG Methylphenidate HCl 10 MG 10/20/2020 12:00:00 AM EST active Methylphenidate HCl 10 MG eCW1 ([facility]) 18 mg 10/18/2020 12:00:00 AM EST tablet extended release 24hr 3 TAKE ONE TABLET BY MOUTH EVERY MORNING MAXIMUM DAILY DOSE = 1 TABLET TAKE ONE TABLET BY MOUTH EVERY MORNING MAXIMUM DAILY DOSE = 1 TABLET SOLD: 10/18/2020 [facility] Methylphenidate HCl ER ([place]) 10 MG Methylphenidate HCl ER ([place] ) 10 MG 10/17/2020 12:00:00 AM EST active Methylph enidate HCl ER ([place]) 10 MG eCW1 ([facility]) 12-3 mg 10/07/2020 12:00:00 AM EST film 56 PLACE ONE HALF FILM UNDER THE TONGUE FOUR TIMES A DAY MAXIMUM DAILY DOSE = [address] ONE HALF FILM UNDER THE TONGUE FOUR TIMES A DAY MAXIMUM DAILY DOSE = 2 FILMS SOLD: 10/07/2020 [facility] 5 mg 10/02/2020 12:00:00 AM EST tablet 30 TAKE 1 TABLET BY MOUTH ON AN EMPTY STOMACH EVERY MORNING MAXIMUM DAILY DOSE = 1 TAKE 1 TABLET BY MOUTH ON AN EMPTY STOMACH EVERY MORNING MAXIMUM DAILY DOSE = 1 SOLD: 10/02/2020 [facility] Methylphenidate Hydrochloride 5 MG Oral Tablet Methylp henidate HCl 5 MG Methylphenidate HCl 5 MG 10/02/2020 12:00:00 AM EST 1.0 {tablet_on_an_empty_stomach} active Met hylphenidate HCl 5 MG eCW1 ([facility]) 200 mg 09/30/2020 12:00:00 AM EST capsule 90 TAKE ONE CAPSULE BY MOUTH THREE TIMES A DAY MAXIMUM DAILY DOSE = 3 CAPSULES TAKE ONE CAPSULE BY MOUTH THREE TIMES A DAY MAXIMUM DAILY DOSE = 3 CAPSULES SOLD: 10/31/2020 [facility] 200 mg 09/30/2020 12:00:00 AM EST capsule 90 TAKE ONE CAPSULE BY MOUTH THREE TIMES A DAY MAXIMUM DAILY DOSE = 3 CAPSULES TAKE ONE CAPSULE BY MOUTH THREE TIMES A DAY MAXIMUM DAILY DOSE = 3 CAPSULES SOLD: 09/30/2020 [facility] 0.5 mg 09/26/2020 12:00:00 AM EST tablet 90 TAKE ONE TABLET BY MOUTH THREE TIMES A DAY NEEDED MAXIMUM DAILY DOSE = 3 TAKE ONE TABLET BY MOUTH THREE TIMES A DAY NEEDED MAXIMUM DAILY DOSE = 3 SOLD: 09/28/2020 [facility] Eszopiclone 2 MG Oral Tablet ESZOPICLONE 09/26/2020 12:00:00 AM EST ta blet 30 TAKE ONE TABLET BY MOUTH IMMEDIATELY BEFORE BEDTIME MAXIMUM DAILY DOSE = 1 TABLET TAKE ONE TABLET BY MOUTH IMMEDIATELY BEF ORE BEDTIME MAXIMUM DAILY DOSE = 1 TABLET SOLD: 09/28/2020 [facility] 75 mg 09/22/2020 12:00:00 AM EST tablet extended release 24hr 30 TAKE ONE TABLET BY MOUTH EVERY DAY TAKE ONE TABLET BY MOUTH EVERY DAY SOLD: 10/31/2020 [facility] 75 mg 09/22/2020 12:00:00 AM EST tablet extended release 24hr 30 TAKE ONE TABLET BY MOUTH EVERY DAY TAKE ONE TABLET BY MOUTH EVERY DAY SOLD: 09/24/2020 [facility] 20.25 mg/1.25 gram (1.62 %) 09/18/2020 12:00:00 AM EST gel in metered-dose pump 75 APPLY 4 PUMPS ONCE DAILY MAXIMUM DAILY DOSE = 4 PUMPS APPLY 4 PUMPS ONCE DAILY MAXIMUM DAILY DOSE = 4 PUMPS SOLD: 09/22/2020 [facility] 12-3 mg 09/09/2020 12:00:00 AM EST film 56 PLACE ONE-HALF FILM UNDER THE TONGUE FOUR TIMES A DAY MAXIMUM DAILY DOSE = [address] ONE-HALF FILM UNDER THE TONGUE FOUR TIMES A DAY MAXIMUM DAILY DOSE = 2 FILMS SOLD: 09/09/2020 [facility] 125 mcg 08/29/2020 12:00:00 AM EDT tablet 30 TAKE ONE TABLET BY MOUTH EVERY DAY TAKE ONE TABLET BY MOUTH EVERY DAY SOLD: 10/31/2020 [facility] 125 mcg 08/29/2020 12:00:00 AM EDT tablet 30 TAKE ONE TABLET BY MOUTH EVERY DAY TAKE ONE TABLET BY MOUTH EVERY DAY SOLD: 09/24/2020 [facility] 125 mcg 08/29/2020 12:00:00 AM EDT tablet 30 TAKE ONE TABLET BY MOUTH EVERY DAY TAKE ONE TABLET BY MOUTH EVERY DAY SOLD: 08/31/2020 [facility] 125 mcg 08/29/2020 12:00:00 AM EDT tablet 30 TAKE ONE TABLET BY MOUTH EVERY DAY TAKE ONE TABLET BY MOUTH EVERY DAY SOLD: 11/28/2020 [facility] 0.5 mg 08/26/2020 12:00:00 AM EDT tablet 90 TAKE ONE TABLET BY MOUTH THREE TIMES A DAY NEEDED, MAXIMUM DAILY DOSE = 3 TAKE ONE TABLET BY MOUTH THREE TIMES A DAY NEEDED, MAXIMUM DAILY DOSE = 3 SOLD: 08/28/2020 [facility] 12-3 mg 08/12/2020 12:00:00 AM EDT film [address] PLACE ONE HALF FILM UNDER THE TONGUE FOUR TIMES A DAY MAXIMUM DAILY DOSE = [address] ONE HALF FILM UNDER THE TONGUE FOUR TIMES A DAY MAXIMUM DAILY DOSE = 2 FILMS SOLD: 08/12/2020 [facility] 10 mg 08/11/2020 12:00:00 AM EDT tablet 41 TAKE ONE TABLET BY MOUTH TWICE A DAY TAKE ONE TABLET BY MOUTH TWICE A DAY SOLD: 10/31/2020 [facility] 10 mg 08/11/2020 12:00:00 AM EDT tablet 180 TAKE ONE TABLET BY MOUTH TWICE A DAY TAKE ONE TABLET BY MOUTH TWICE A DAY SOLD: 04/01/2021 [facility] 10 mg 08/11/2020 12:00:00 AM EDT tablet 180 TAKE ONE TABLET BY MOUTH TWICE A DAY TAKE ONE TABLET BY MOUTH TWICE A DAY SOLD: 08/11/2020 [facility] 10 mg 08/11/2020 12:00:00 AM EDT tablet 139 TAKE ONE TABLET BY MOUTH TWICE A DAY TAKE ONE TABLET BY MOUTH TWICE A DAY SOLD: 10/29/2020 [facility] 20.25 mg/1.25 gram (1.62 %) 08/08/2020 12:00:00 AM EDT gel in metered-dose pump 75 APPLY 2 PUMPS DAILY MAXIMUM SONALI Y DOSE = 2 PUMPS APPLY 2 PUMPS DAILY MAXIMUM DAILY DOSE = 2 PUMPS SOLD: 08/11/2020 [facility] atorvastatin 20 MG Oral Tablet Atorvastatin Calcium 20 MG Atorvastatin Calcium 20 MG 08/01/2020 12:00:00 AM EDT 1.0 {tablet} activ e Atorvastatin Calcium 20 MG eCW1 ([facility]) atorvastatin 20 MG Oral Tablet Atorvastatin Calcium 20 MG Atorvastatin Calcium 20 MG 08/01/2020 12:00:00 AM EDT 1.0 {tablet} activ e Atorvastatin Calcium 20 MG eCW1 ([facility]) 200 mg 08/01/2020 12:00:00 AM EDT capsule 90 TAKE ONE CAPSULE BY MOUTH THREE TIMES A DAY MAXIMUM DAILY DOSE = 3 TAKE ONE CAPSULE BY MOUTH THREE TIMES A DAY MAXIMUM DAILY DOSE = 3 SOLD: 08/02/2020 [facility] atorvastatin 20 MG Oral Tablet Atorvastatin Calcium 20 MG Atorvastatin Calcium 20 MG 08/01/2020 12:00:00 AM EDT 1.0 {tablet} activ e Atorvastatin Calcium 20 MG eCW1 ([facility]) atorvastatin 20 MG Oral Tablet Atorvastatin Calcium 20 MG Atorvastatin Calcium 20 MG 08/01/2020 12:00:00 AM EDT 1.0 {tablet} activ e Atorvastatin Calcium 20 MG eCW1 ([facility]) atorvastatin 20 MG Oral Tablet Atorvastatin Calcium 20 MG Atorvastatin Calcium 20 MG 08/01/2020 12:00:00 AM EDT 1.0 {tablet} activ e Atorvastatin Calcium 20 MG eCW1 ([facility]) atorvastatin 20 MG Oral Tablet Atorvastatin Calcium 20 MG Atorvastatin Calcium 20 MG 08/01/2020 12:00:00 AM EDT 1.0 {tablet} activ e Atorvastatin Calcium 20 MG eCW1 ([facility]) atorvastatin 20 MG Oral Tablet Atorvastatin Calcium 20 MG Atorvastatin Calcium 20 MG 08/01/2020 12:00:00 AM EDT 1.0 {tablet} active eCW1 ([facility]) atorvastatin 20 MG Oral Tablet Atorvastatin Calcium 20 MG Atorvastatin Calcium 20 MG 08/01/2020 12:00:00 AM EDT 1.0 {tablet} activ e Atorvastatin Calcium 20 MG eCW1 ([facility]) atorvastatin 20 MG Oral Tablet Atorvastatin Calcium 20 MG Atorvastatin Calcium 20 MG 08/01/2020 12:00:00 AM EDT 1.0 {tablet} activ e Atorvastatin Calcium 20 MG eCW1 ([facility]) 200 mg 08/01/2020 12:00:00 AM EDT capsule 90 TAKE ONE CAPSULE BY MOUTH THREE TIMES A DAY MAXIMUM DAILY DOSE = 3 TAKE ONE CAPSULE BY MOUTH THREE TIMES A DAY MAXIMUM DAILY DOSE = 3 SOLD: 08/31/2020 [facility] atorvastatin 20 MG Oral Tablet Atorvastatin Calcium 20 MG Atorvastatin Calcium 20 MG 08/01/2020 12:00:00 AM EDT 1.0 {tablet} activ e Atorvastatin Calcium 20 MG eCW1 ([facility]) atorvastatin 20 MG Oral Tablet Atorvastatin Calcium 20 MG Atorvastatin Calcium 20 MG 08/01/2020 12:00:00 AM EDT 1.0 {tablet} activ e Atorvastatin Calcium 20 MG eCW1 ([facility]) atorvastatin 20 MG Oral Tablet Atorvastatin Calcium 20 MG Atorvastatin Calcium 20 MG 08/01/2020 12:00:00 AM EDT 1.0 {tablet} activ e Atorvastatin Calcium 20 MG eCW1 ([facility]) atorvastatin 20 MG Oral Tablet Atorvastatin Calcium 20 MG Atorvastatin Calcium 20 MG 08/01/2020 12:00:00 AM EDT 1.0 {tablet} activ e Atorvastatin Calcium 20 MG eCW1 ([facility]) atorvastatin 20 MG Oral Tablet Atorvastatin Calcium 20 MG Atorvastatin Calcium 20 MG 08/01/2020 12:00:00 AM EDT 1.0 {tablet} activ e Atorvastatin Calcium 20 MG eCW1 ([facility]) atorvastatin 20 MG Oral Tablet Atorvastatin Calcium 20 MG Atorvastatin Calcium 20 MG 08/01/2020 12:00:00 AM EDT 1.0 {tablet} activ e Atorvastatin Calcium 20 MG eCW1 ([facility]) atorvastatin 20 MG Oral Tablet Atorvastatin Calcium 20 MG Atorvastatin Calcium 20 MG 08/01/2020 12:00:00 AM EDT 1.0 {tablet} activ e Atorvastatin Calcium 20 MG eCW1 ([facility]) atorvastatin 20 MG Oral Tablet Atorvastatin Calcium 20 MG Atorvastatin Calcium 20 MG 08/01/2020 12:00:00 AM EDT 1.0 {tablet} activ e Atorvastatin Calcium 20 MG eCW1 ([facility]) atorvastatin 20 MG Oral Tablet Atorvastatin Calcium 20 MG Atorvastatin Calcium 20 MG 08/01/2020 12:00:00 AM EDT 1.0 {tablet} activ e Atorvastatin Calcium 20 MG eCW1 ([facility]) atorvastatin 20 MG Oral Tablet Atorvastatin Calcium 20 MG Atorvastatin Calcium 20 MG 08/01/2020 12:00:00 AM EDT 1.0 {tablet} activ e Atorvastatin Calcium 20 MG eCW1 ([facility]) atorvastatin 20 MG Oral Tablet Atorvastatin Calcium 20 MG Atorvastatin Calcium 20 MG 08/01/2020 12:00:00 AM EDT 1.0 {tablet} activ e Atorvastatin Calcium 20 MG eCW1 ([facility]) atorvastatin 20 MG Oral Tablet Atorvastatin Calcium 20 MG Atorvastatin Calcium 20 MG 08/01/2020 12:00:00 AM EDT 1.0 {tablet} activ e Atorvastatin Calcium 20 MG eCW1 ([facility]) atorvastatin 20 MG Oral Tablet Atorvastatin Calcium 20 MG Atorvastatin Calcium 20 MG 08/01/2020 12:00:00 AM EDT 1.0 {tablet} activ e Atorvastatin Calcium 20 MG eCW1 ([facility]) atorvastatin 20 MG Oral Tablet Atorvastatin Calcium 20 MG Atorvastatin Calcium 20 MG 08/01/2020 12:00:00 AM EDT 1.0 {tablet} activ e Atorvastatin Calcium 20 MG eCW1 ([facility]) atorvastatin 20 MG Oral Tablet Atorvastatin Calcium 20 MG Atorvastatin Calcium 20 MG 08/01/2020 12:00:00 AM EDT 1.0 {tablet} activ e Atorvastatin Calcium 20 MG eCW1 ([facility]) atorvastatin 20 MG Oral Tablet ATORVASTATIN CALCIUM 08/01/2020 1 2:00:00 AM EDT tablet 90 TAKE ONE TABLET BY MOUTH EVERY D AY TAKE ONE TABLET BY MOUTH EVERY DAY SOLD: 10/31/2020 [facility] atorvastatin 20 MG Oral Tablet Atorvastatin Calcium 20 MG Atorvastatin Calcium 20 MG 08/01/2020 12:00:00 AM EDT 1.0 {tablet} activ e Atorvastatin Calcium 20 MG eCW1 ([facility]) atorvastatin 20 MG Oral Tablet Atorvastatin Calcium 20 MG Atorvastatin Calcium 20 MG 08/01/2020 12:00:00 AM EDT 1.0 {tablet} activ e Atorvastatin Calcium 20 MG eCW1 ([facility]) atorvastatin 20 MG Oral Tablet Atorvastatin Calcium 20 MG Atorvastatin Calcium 20 MG 08/01/2020 12:00:00 AM EDT 1.0 {tablet} activ e Atorvastatin Calcium 20 MG eCW1 ([facility]) atorvastatin 20 MG Oral Tablet Atorvastatin Calcium 20 MG Atorvastatin Calcium 20 MG 08/01/2020 12:00:00 AM EDT 1.0 {tablet} activ e Atorvastatin Calcium 20 MG eCW1 ([facility]) atorvastatin 20 MG Oral Tablet Atorvastatin Calcium 20 MG Atorvastatin Calcium 20 MG 08/01/2020 12:00:00 AM EDT 1.0 {tablet} activ e Atorvastatin Calcium 20 MG eCW1 ([facility]) atorvastatin 20 MG Oral Tablet Atorvastatin Calcium 20 MG Atorvastatin Calcium 20 MG 08/01/2020 12:00:00 AM EDT 1.0 {tablet} activ e Atorvastatin Calcium 20 MG eCW1 ([facility]) atorvastatin 20 MG Oral Tablet Atorvastatin Calcium 20 MG Atorvastatin Calcium 20 MG 08/01/2020 12:00:00 AM EDT 1.0 {tablet} activ e Atorvastatin Calcium 20 MG eCW1 ([facility]) atorvastatin 20 MG Oral Tablet Atorvastatin Calcium 20 MG Atorvastatin Calcium 20 MG 08/01/2020 12:00:00 AM EDT 1.0 {tablet} activ e Atorvastatin Calcium 20 MG eCW1 ([facility]) atorvastatin 20 MG Oral Tablet Atorvastatin Calcium 20 MG Atorvastatin Calcium 20 MG 08/01/2020 12:00:00 AM EDT 1.0 {tablet} active eCW1 ([facility]) atorvastatin 20 MG Oral Tablet Atorvastatin Calcium 20 MG Atorvastatin Calcium 20 MG 08/01/2020 12:00:00 AM EDT 1.0 {tablet} activ e Atorvastatin Calcium 20 MG eCW1 ([facility]) atorvastatin 20 MG Oral Tablet Atorvastatin Calcium 20 MG Atorvastatin Calcium 20 MG 08/01/2020 12:00:00 AM EDT 1.0 {tablet} activ e Atorvastatin Calcium 20 MG eCW1 ([facility]) atorvastatin 20 MG Oral Tablet ATORVASTATIN CALCIUM 08/01/2020 1 2:00:00 AM EDT tablet 90 TAKE ONE TABLET BY MOUTH EVERY D AY TAKE ONE TABLET BY MOUTH EVERY DAY SOLD: 08/02/[address] s atorvastatin 20 MG Oral Tablet Atorvastatin Calcium 20 MG Atorvastatin Calcium 20 MG 08/01/2020 12:00:00 AM EDT 1.0 {tablet} activ e Atorvastatin Calcium 20 MG eCW1 ([facility]) atorvastatin 20 MG Oral Tablet Atorvastatin Calcium 20 MG Atorvastatin Calcium 20 MG 08/01/2020 12:00:00 AM EDT 1.0 {tablet} activ e Atorvastatin Calcium 20 MG eCW1 ([facility]) atorvastatin 20 MG Oral Tablet Atorvastatin Calcium 20 MG Atorvastatin Calcium 20 MG 08/01/2020 12:00:00 AM EDT 1.0 {tablet} activ e Atorvastatin Calcium 20 MG eCW1 ([facility]) atorvastatin 20 MG Oral Tablet Atorvastatin Calcium 20 MG Atorvastatin Calcium 20 MG 08/01/2020 12:00:00 AM EDT 1.0 {tablet} activ e Atorvastatin Calcium 20 MG eCW1 ([facility]) atorvastatin 20 MG Oral Tablet Atorvastatin Calcium 20 MG Atorvastatin Calcium 20 MG 08/01/2020 12:00:00 AM EDT 1.0 {tablet} activ e Atorvastatin Calcium 20 MG eCW1 ([facility]) atorvastatin 20 MG Oral Tablet Atorvastatin Calcium 20 MG Atorvastatin Calcium 20 MG 08/01/2020 12:00:00 AM EDT 1.0 {tablet} activ e Atorvastatin Calcium 20 MG eCW1 ([facility]) atorvastatin 20 MG Oral Tablet Atorvastatin Calcium 20 MG Atorvastatin Calcium 20 MG 08/01/2020 12:00:00 AM EDT 1.0 {tablet} activ e Atorvastatin Calcium 20 MG eCW1 ([facility]) atorvastatin 20 MG Oral Tablet Atorvastatin Calcium 20 MG Atorvastatin Calcium 20 MG 08/01/2020 12:00:00 AM EDT 1.0 {tablet} activ e Atorvastatin Calcium 20 MG eCW1 ([facility]) atorvastatin 20 MG Oral Tablet Atorvastatin Calcium 20 MG Atorvastatin Calcium 20 MG 08/01/2020 12:00:00 AM EDT 1.0 {tablet} activ e Atorvastatin Calcium 20 MG eCW1 ([facility]) atorvastatin 20 MG Oral Tablet Atorvastatin Calcium 20 MG Atorvastatin Calcium 20 MG 08/01/2020 12:00:00 AM EDT 1.0 {tablet} activ e Atorvastatin Calcium 20 MG eCW1 ([facility]) atorvastatin 20 MG Oral Tablet Atorvastatin Calcium 20 MG Atorvastatin Calcium 20 MG 08/01/2020 12:00:00 AM EDT 1.0 {tablet} activ e Atorvastatin Calcium 20 MG eCW1 ([facility]) atorvastatin 20 MG Oral Tablet Atorvastatin Calcium 20 MG Atorvastatin Calcium 20 MG 08/01/2020 12:00:00 AM EDT 1.0 {tablet} activ e Atorvastatin Calcium 20 MG eCW1 ([facility]) atorvastatin 20 MG Oral Tablet Atorvastatin Calcium 20 MG Atorvastatin Calcium 20 MG 08/01/2020 12:00:00 AM EDT 1.0 {tablet} activ e Atorvastatin Calcium 20 MG eCW1 ([facility]) atorvastatin 20 MG Oral Tablet Atorvastatin Calcium 20 MG Atorvastatin Calcium 20 MG 08/01/2020 12:00:00 AM EDT 1.0 {tablet} activ e Atorvastatin Calcium 20 MG eCW1 ([facility]) atorvastatin 20 MG Oral Tablet Atorvastatin Calcium 20 MG Atorvastatin Calcium 20 MG 08/01/2020 12:00:00 AM EDT 1.0 {tablet} activ e Atorvastatin Calcium 20 MG eCW1 ([facility]) atorvastatin 20 MG Oral Tablet Atorvastatin Calcium 20 MG Atorvastatin Calcium 20 MG 08/01/2020 12:00:00 AM EDT 1.0 {tablet} activ e Atorvastatin Calcium 20 MG eCW1 ([facility]) atorvastatin 20 MG Oral Tablet Atorvastatin Calcium 20 MG Atorvastatin Calcium 20 MG 08/01/2020 12:00:00 AM EDT 1.0 {tablet} activ e Atorvastatin Calcium 20 MG eCW1 ([facility]) atorvastatin 20 MG Oral Tablet Atorvastatin Calcium 20 MG Atorvastatin Calcium 20 MG 08/01/2020 12:00:00 AM EDT 1.0 {tablet} activ e Atorvastatin Calcium 20 MG eCW1 ([facility]) atorvastatin 20 MG Oral Tablet Atorvastatin Calcium 20 MG Atorvastatin Calcium 20 MG 08/01/2020 12:00:00 AM EDT 1.0 {tablet} activ e Atorvastatin Calcium 20 MG eCW1 ([facility]) atorvastatin 20 MG Oral Tablet Atorvastatin Calcium 20 MG Atorvastatin Calcium 20 MG 08/01/2020 12:00:00 AM EDT 1.0 {tablet} activ e Atorvastatin Calcium 20 MG eCW1 ([facility]) atorvastatin 20 MG Oral Tablet Atorvastatin Calcium 20 MG Atorvastatin Calcium 20 MG 08/01/2020 12:00:00 AM EDT 1.0 {tablet} activ e Atorvastatin Calcium 20 MG eCW1 ([facility]) atorvastatin 20 MG Oral Tablet Atorvastatin Calcium 20 MG Atorvastatin Calcium 20 MG 08/01/2020 12:00:00 AM EDT 1.0 {tablet} activ e Atorvastatin Calcium 20 MG eCW1 ([facility]) atorvastatin 20 MG Oral Tablet Atorvastatin Calcium 20 MG Atorvastatin Calcium 20 MG 08/01/2020 12:00:00 AM EDT 1.0 {tablet} activ e Atorvastatin Calcium 20 MG eCW1 ([facility]) atorvastatin 20 MG Oral Tablet Atorvastatin Calcium 20 MG Atorvastatin Calcium 20 MG 08/01/2020 12:00:00 AM EDT 1.0 {tablet} activ e Atorvastatin Calcium 20 MG eCW1 ([facility]) atorvastatin 20 MG Oral Tablet Atorvastatin Calcium 20 MG Atorvastatin Calcium 20 MG 08/01/2020 12:00:00 AM EDT 1.0 {tablet} activ e Atorvastatin Calcium 20 MG eCW1 ([facility]) atorvastatin 20 MG Oral Tablet Atorvastatin Calcium 20 MG Atorvastatin Calcium 20 MG 08/01/2020 12:00:00 AM EDT 1.0 {tablet} activ e Atorvastatin Calcium 20 MG eCW1 ([facility]) atorvastatin 20 MG Oral Tablet Atorvastatin Calcium 20 MG Atorvastatin Calcium 20 MG 08/01/2020 12:00:00 AM EDT 1.0 {tablet} activ e Atorvastatin Calcium 20 MG eCW1 ([facility]) atorvastatin 20 MG Oral Tablet Atorvastatin Calcium 20 MG Atorvastatin Calcium 20 MG 08/01/2020 12:00:00 AM EDT 1.0 {tablet} activ e Atorvastatin Calcium 20 MG eCW1 ([facility]) atorvastatin 20 MG Oral Tablet Atorvastatin Calcium 20 MG Atorvastatin Calcium 20 MG 08/01/2020 12:00:00 AM EDT 1.0 {tablet} activ e Atorvastatin Calcium 20 MG eCW1 ([facility]) 0.5 mg 07/25/2020 12:00:00 AM EDT tablet 90 TAKE ONE TABLET BY MOUTH THREE TIMES A DAY - MAXIMUM DAILY DOSE = 3 TABLETS TAKE ONE TABLET BY MOUTH THREE TIMES A DAY - MAXIMUM DAILY DOSE = 3 TABLETS SOLD: 07/25/2020 [facility] 10 mg 07/18/2020 12:00:00 AM EDT tablet 60 TAKE 1 TABLET BY MOUTH EVERY DAY IN THE MORNING; ONE-HALF TABLET MID AFTERNOON AND ONE-HALF TABLET IN THE EVENING TAKE 1 TABLET BY MOUTH EVERY DAY IN THE MORNING; ONE-HALF TABLET MID AFTERNOON AND ONE-HALF TABLET IN THE EVENING SOLD: 07/19/2020 [facility] 12-3 mg 07/15/2020 12:00:00 AM EDT film [address] ONEHALF FILM UNDER THE TONGUE FOUR TIMES A DAY MAXIMUM DAILY DOSE = [address] ONEHALF FILM UNDER THE TONGUE FOUR TIMES A DAY MAXIMUM DAILY DOSE = 2 FILMS SOLD: 07/15/2020 [facility] 75 mg 07/01/2020 12:00:00 AM EDT capsule,extended releas e 24hr 90 TAKE ONE CAPSULE BY MOUTH EVERY MORNING TAKE ONE CAPSULE BY MOUTH EVERY MORNING SOLD: 11/28/2020 [facility] 125 mcg 05/30/2020 12:00:00 AM EDT tablet 30 TAKE ONE TABLET BY MOUTH EVERY DAY TAKE ONE TABLET BY MOUTH EVERY DAY SOLD: 07/29/2020 [facility] 2 mg 05/28/2020 12:00:00 AM EDT tablet 30 TAKE ONE TABLET BY MOUTH EVERY DAY IMMEDIATELY BEFORE BEDTIME MAXIMUM DAILY DOSE = 1 TAKE ONE TABLET BY MOUTH EVERY DAY IMMEDIATELY BEFORE BEDTIME MAXIMUM DAILY DOSE = 1 SOLD: 08/28/2020 [facility] 2 mg 05/28/2020 12:00:00 AM EDT tablet 30 TAKE ONE TABLET BY MOUTH EVERY DAY IMMEDIATELY BEFORE BEDTIME MAXIMUM DAILY DOSE = 1 TAKE ONE TABLET BY MOUTH EVERY DAY IMMEDIATELY BEFORE BEDTIME MAXIMUM DAILY DOSE = 1 SOLD: 07/25/2020 [facility] 200 mg 05/04/2020 12:00:00 AM EDT capsule 60 TAKE ONE CAPSULE BY MOUTH TWICE A DAY TAKE ONE CAPSULE BY MOUTH TWICE A DAY SOLD: 09/24/2020 [facility] 200 mg 05/04/2020 12:00:00 AM EDT capsule 60 TAKE ONE CAPSULE BY MOUTH TWICE A DAY TAKE ONE CAPSULE BY MOUTH TWICE A DAY SOLD: 07/29/2020 [facility] Insurance Providers Payer name Policy type / Coverage type Policy ID Covered constitution party ID Covered constitution party's relationship to freeman Policy Freeman Plan Information VALDO [id number] SP [id number] A [employer]() Workers Compensation [id number] Self [id number] [place]() Workers Compensation [id number] Self [id number] [facility] Workers Compensation [id number] Self [id number] MEDICARE [id number] SP [id number] MEDICARE [id number] SP [id number] A MEDICARE A [id number] Self [id number] [place] [id number] Self [id number] [place] [id number] Self [id number] [place] [id number] Self [id number] MEDICARE A [id number] Self [id number] A [facility]-Medicare Part B [id number] ANSI-Medicare Part B [id number] ANSI-Medicare Part B [id number] ANSI-Medicare Part B [id number] ANSI-Medicare Part B [id number] ANSI-Medicare Part B [id number]-[id number] ANSI-Medicare Part B [id number] ANSI-Medicare Part B [id number]-99t8-[id number] ANSI-Medicare Part B [id number]-[id number]-[id number] ANSI-Medicare Part B [id number]-[id number] ANSI-Medicare Part B [id number]-1tne-[id number] ANSI-Medicare Part B [id number]-3mjt-[id number] ANSI-Medicare Part B [id number]-[id number] [id number]-s969-5g7q-zx29-n2x8ed1i5jq0 ANSI-Medicare Part B [id number]-[id number] 8yu15134-1394-0l4u-0070-0q7aj86mivt5 ANSI-Medicare Part B [id number]-jo5j-46z4w19niv96 20xrbx37-t8w8-7702-ur1e-84a3e94wbt36 ANSI-Medicare Part B [id number] [id number]-bj3l-h61z2h069896 ANSI-Medicare Part B [id number]-4n9n-2l1u-2jff20k4x0q7 zq9803oo-bw2k-5c4k-9o8s-9zzd17r8z5i6 ANSI-Medicare Part B [id number]-2k65-89479xc9g8h9 91iju172-8q05-864t-6y21-34430uu5x2l0 ANSI-Medicare Part B [id number]-88a2-4jk7-32my3lkya8gu a635618t-4y9g-30c0-9tm0-40yk2zpje3gf ANSI-Medicare Part B [id number]-32d641b9s2r3 [id number]-t896-0u93-2u4k-91d247f8s9x2 ANSI-Medicare Part B [id number]-[id number] pj003h0l-rw63-6006-enf5-e2r138838006 ANSI-Medicare Part B [id number]-02n7-30a0-d4883478t070 [id number]-v56l-23j4-88d3-s7381094r274 ANSI-Medicare Part B [id number]-26fv-6zmn-e8t5o4y54l15 qi348430-3pzn-13vm-7znt-q4e9p3b51q18 ANSI-Medicare Part B [id number]-54sm-wia327ov5m8n 109o5h53-xg59-765b-07ix-afz999kx9r1x ANSI-Medicare Part B [id number]-0i8m-[id number] eu0r7wlx-55r7-997t-0i0r-z22n392172s6 ANSI-Medicare Part B [id number]-0661-rd1u-2759070t73w5 6u174y50-2brt-9554-lr5a-6092318t18t5 ANSI-Medicare Part B [id number]-105b186d9c6e 11o0z91s-kn44-5751-5i5l-579d478h0t8d ANSI-Medicare Part B [id number]-d3j9-754o-805e-y9u437ova8h6 16t57gfx-q8f6-805p-689p-z4y696bhh1r8 MEDICARE [id number] SP [id number] A ANSI-Medicare Part B [id number]-yqyb-bw385mig7080 o9i17b0t-o836-91n3-ycbs-hu947ihg2428 ANSI-Medicare Part B [id number]-ha3x-9m9l-0cl9-6b1dit9pn9yl 538s6yq0-ts4t-2p5y-3ud2-9d5vby5ff4fl ANSI-Medicare Part B [id number]-8m32-64431p952pkj 3i582190-pzk3-978w-1p38-12873t952svm ANSI-Medicare Part B [id number]-oj70-j65e43n137s2 3842d636-6c76-9e5o-zy70-h67f58n239m5 ANSI-Medicare Part B 7630x9mr-i8t1-2279-u82m-byt36t6o27ll 3439p3if-t0e3-7716-m63w-fns02r7k35qf ANSI-Medicare Part B [id number]-z23o-9j21dfg9qd83 178k6b68-6095-24p4-k35q-4o82znn6dh37 ANSI-Medicare Part B [id number]-95sq-1cdq-732f-960m92u7541z pd40152p-02dy-2hgc-980r-650e34c5880p ANSI-Medicare Part B omkft3db-5762-9424-u031-23427lp349t7 mevrm3rl-5446-3183-x796-33037wf092d6 ANSI-Medicare Part B g5mpx3w2-qd08-9138-ma8q-4e71jc0p9232 t1kfj5v5-nd28-1506-yl1n-5z97rd2b5990 ANSI-Medicare Part B [id number]-204b-37rg-hv3u-k196607028m2 55x9260q-832a-13ps-jl5o-f617284252p8 ANSI-Medicare Part B [id number]-b6tc-i543s022tzpd 36m28207-38w1-74cd-m1it-b451b894xfik ANSI-Medicare Part B 392t3vk7-2ahr-8js4-9eyj-zj0fwjy5t963 318o6pl6-7mtl-2lu2-6inb-po6icxl8p023 ANSI-Medicare Part B [id number]-4q31-4502-957vkdmm54r5 96547342-47cs-4o46-0795-870tjlph31l2 ANSI-Medicare Part B 46m0y0t2-2mx8-05h6-g5t6-133504wg30lf 51v3o6i6-9hs6-04d9-r4c8-180572zh65ch ANSI-Medicare Part B 775a8fr7-5570-1a4k-4p1n-d4ofp36fj958 628f7bs0-2794-7d7q-9a3l-y5znm14zm922 ANSI-Medicare Part B [id number]-u738-59hc-9307-g922c4866o3j 0d386175-c096-98at-4844-r766a8023m5y ANSI-Medicare Part B [id number]-zuc2-17x8-s163-bamg9n9b24a7 2q2366b4-wul2-53w5-m966-uzhi3f4r92k5 ANSI-Medicare Part B 24w23e15-qdc0-663o-77u3-09237g51vzs9 59y61g52-gfk7-661v-00y7-68394u37ejt4 ANSI-Medicare Part B [id number]-af3x-52y1-14m3-snule87535k6 4e9396e3-pk9j-87a2-53i3-dxuit88175r1 ANSI-Medicare Part B 599l00x2-j807-1872-3d01-lkds2aad3898 511p40k8-m830-4629-4d80-ktyt5eow6028 ANSI-Medicare Part B hyge6185-2622-799x-3vkd-94994f7t08kb pdzb9953-2355-420e-9afm-22460h4a96ng ANSI-Medicare Part B [id number]-b15y-77789p1ne4pq d880y991-2c55-7k2a-c39j-10203v2xd3ck ANSI-Medicare Part B km91c7cc-a795-696i-1449-2q6111h4505f ci49d6es-c790-000p-2734-0n7087g4028h ANSI-Medicare Part B [id number]-8d45-901i-v9u8804337q7 4622p500-0nir-2h99-992d-y5k1517599z9 ANSI-Medicare Part B zj172j29-0g72-0t08-134z-131r440n836o wd943f84-2r60-7v00-336a-122v248s541i ANSI-Medicare Part B [id number]-82z1-8f50-bmk4-54u1h23qc9r8 g5gx724t-07i5-3u44-aqh2-39v2z44cg2x8 ANSI-Medicare Part B v2977vwq-p8w8-9157-21eg-6b3nsgd3scw2 z2736zfy-e0g3-1024-39bc-9w7vwag4fsf7 MEDICARE [id number] SP [id number] A38 ANSI-Medicare Part B 7qzd34yg-8zi7-0hgt-6699-93hogxs94411 7zhx80aj-5uc6-0ooh-6506-80nsepe49818 ANSI-Medicare Part B 4494s4t4-sg66-908t-3429-459b61b7wx62 9174y4e7-wq42-402z-1460-829h15s8os56 ANSI-Medicare Part B 18381831-yoj0-5033-41u2-d08589z69vo3 99050777-xrn8-0595-68m9-y77531d16kl2 ANSI-Medicare Part B b21g7k68-356m-847a-7604-z527xkh31b17 b84u4e20-052j-191a-2763-r395dqo52v12 ANSI-Medicare Part B 4cbcu434-h813-22zt-8g3j-4453d62386r7 3qovb319-u173-37ax-1q9m-7304b19121o5 ANSI-Medicare Part B 2kl62btq-3qoa-509i-301d-855gwz0m4bd9 4zo85juf-7zax-847s-378l-364iup2z4vu7 ANSI-Medicare Part B [id number]-z008-i4b66m3o8522 c32k76l5-8718-7800-n189-d6z31m4o3701 ANSI-Medicare Part B sx802y52-1q8z-5af0-5mn1-68i6p54n4143 ha873y00-0g6z-4cc6-4dr1-45f3k75n2020 ANSI-Medicare Part B [id number]-l536-8aqw-5fy9-06g122107ix9 88581092-h066-5ofz-6hd5-05j908650fv8 ANSI-Medicare Part B pxm8be6r-9366-6154-f340-8zo2l6h3v0p5 csp4pv4b-0002-1103-e723-0rh5e3e5m4t3 ANSI-Medicare Part B 6k1sq594-277j-247b-695m-40537j729918 5p8nm984-757e-192w-995h-97141p830329 ANSI-Medicare Part B 356p5501-0g78-419m-ewo1-b7d097bqq140 335c6270-3t81-693p-wjs8-f5u985otm627 ANSI-Medicare Part B 8hc1x611-06bb-4939-4818-93t16lco6jy9 5aj1k023-99gl-0934-0289-45t15gnh3ia8 ANSI-Medicare Part B a930u750-8361-5unm-b9pk-584pxtwt7h19 p642b191-6418-7dnn-m6ba-334ixqjn7l89 ANSI-Medicare Part B 773wl9r5-w44s-1d84-y945-g83491200q95 751by4r1-n93n-5i11-z445-i43767631b18 ANSI-Medicare Part B 674r2w80-dlbg-59vw-m35n-t62v7j6203a7 604t0h73-ipwo-14ke-i53v-n34j9m8329d1 ANSI-Medicare Part B 245lih2x-6y4p-5wu7-3pv6-r99nre6e3496 031obt4d-1q9u-5zi9-5nz2-h56ejh5k6579 ANSI-Medicare Part B qh4rl1t3-41jt-20ch-uc7d-k69fv450k397 ao5wo4h9-84ja-51px-pe7n-o30ii891r989 ANSI-Medicare Part B [id number]-s3249l02h8ml 3q175753-54f8-2z81-1524-u3677p63y4jc ANSI-Medicare Part B k74zo4r7-984i-8s71-1lmp-832sr0hjbmsk a69hp8d6-779v-6d87-0kbx-131le1joezip ANSI-Medicare Part B [id number]-u657-01izz9140678 60218519-7wm7-6880-u679-49cte7547892 ANSI-Medicare Part B [id number]-k7c2-1ta0-j181-p07c6x7uf45a t92r40pa-r4t5-2ur6-f267-h76a5u6lw79i MEDICARE C [id number] S [id number] A Medicaid [place] Medigap Part B [id number]. 3545.0 Self [id number] [place] ([place]) Workers Compensation [id number] Self [id number] [employer] () Workers Compensation [id number]. 227.99.991.3545.0 Self [id number] [facility] () Workers Compensation [id number] Self [id number] [employer] () Workers Compensation [id number] 2.16.840.1.755249.3. 227.99.991.3545.0 Self [id number] [facility] () Workers Compensation [id number] Self [id number] [employer] () Workers Compensation [id number]. [id number] Self [id number] MEDICARE - [facility] [id number] S [id number] MEDICARE MEDICARE [id number] Self JACKIE AMBROSE JR MEDICARE [facility] [id number] SP [id number] SELF PAY UNAVAILABLE SP UNAVAILA BLE SELF PAY SP [id number] FIRE PREVENTION [employer]UREAU [place] SP [id number] [facility] [id number] [place]IDIAN PART B C [id number] S [id number] MEDICARE C [id number] S [id number] MEDICAID UNAVAILABLE UNAVAILA BLE ANS-Medicare Part B [id number] ANSI-Medicare Part B [id number] ANSI-Medicare Part B [id number] ANSI-Medicare Part B [id number] ANSI-Medicare Part B [id number] ANSI-Medicare Part B [id number] ANSI-Medicare Part B [id number] Problems, Conditions, and Diagnoses Code Display Name Description Problem Type Effective Dates Data Source(s) F98.8 96751507 ADD (attention deficit disorder) without hyperactivity Problem 03/13/2021 12:00:00 AM EDT eCW1 ([facility]) M19.90 4815700 Inflammatory arthritis Problem 02/17/2021 12 :00:00 AM EDT eCW1 ([facility]) R53.82 [id number] Chronic fatigue Problem 12/17/2020 12:00:00 AM EST eCW1 ([facility]) Surgeries/Procedures No Information Results ID Date Data Source [id number] 06/24/2021 08:47:00 AM EDT [facility] Name Value Range Interpretation Code Description Data Tracey rce(s) Supporting Document(s) SARS-CoV-2 (COVID 19) NEGATIVE - SARS-CoV-2 (COVID19) [facility] This lab was ordered by [facility] a nd reported by [facility]. ID Date Data Source [id number] 06/24/2021 08:29:00 AM EDT [facility] Name Value Range Interpretation Code Description Data Tracey rce(s) Supporting Document(s) SARS COVID ANTIGEN NEGATIVE [facility] a [facility] reported by [facility]. ID Date Data Source URINE CULTURE 06/24/2021 12:00:00 AM EDT eCW1 ([facility]) Name Value Range Interpretation Code Description Data Tracey rce(s) Supporting Document(s) Laboratory studies (set) URINE CULTU RE eCW1 ([facility]) ID Date Data Source [facility] COVID AG (Point of Care) 06/24/2021 12:00:00 AM EDT eC W1 ([facility]) Name Value Range Interpretation Code Description Data Tracey rce(s) Supporting Document(s) NEGATIVE NEGATIVE [facility] COVID ANTIGEN eCW1 ([facility]) ID Date Data Source RESPIRATORY PANEL 06/24/2021 12:00:00 AM EDT eCW1 ([facility]) Name Value Range Interpretation Code Description Data Tracey rce(s) Supporting Document(s) This respiratory PCR panel detects Influenza A H1, H3 and RESPIRATORY PANEL eCW1 ([facility]) ID Date Data Source UA URINALYSIS 06/24/2021 12:00:00 AM EDT eCW1 ([facility]) Name Value Range Interpretation Code Description Data Tracey rce(s) Supporting Document(s) Laboratory studies (set) UA URINALYS IS eCW1 ([facility]) ID Date Data Source ANTI-MITOCHONDRIAL ANTIBODY 12/17/2020 12:00:00 AM EST eCW1 ([facility]) Name Value Range Interpretation Code Description Data Tracey rce(s) Supporting Document(s) <20.0 0.0-20.0 ANTI-MITOCHONDRIAL ANTIBO DY eCW1 ([facility]) ID Date Data Source CARDIAC INJURY PROFILE 12/17/2020 12:00:00 AM EST eCW1 ([facility]) Name Value Range Interpretation Code Description Data Tracey rce(s) Supporting Document(s) 207 39-308 CPK CREATINE PHOSPHOKINASE eCW 1 ([facility]) 3.9 <3.6 CK-MB VALUE MASS eCW1 ([facility]) 1.88 < OR =4 MB/CK RELATIVE INDEX eCW1 ([facility]) ID Date Data Source CBC with Auto Differential 12/17/2020 12:00:00 AM EST eCW1 ( [facility]) Name Value Range Interpretation Code Description Data Tracey rce(s) Supporting Document(s) 7.2 4.0-10.0 WHITE BLOOD COUNT eCW1 ([facility]) 4.81 4.30-6.10 RED BLOOD COUNT eCW1 ([facility]) 94.8 80.0-96.0 MEAN CORPUSCULAR VOLUME e CW1 ([facility]) 15.5 13.5-17.5 HEMOGLOBIN eCW1 ([facility]) 32.2 27.0-33.0 MEAN CORPUSCULAR HEMOGLOB IN eCW1 ([facility]) 45.6 42.0-52.0 HEMATOCRIT eCW1 ([facility]) 34.0 32.0-36.5 MEAN CORPUSCULAR HGB CONC eCW1 ([facility]) 47.3 36.0-66.0 NEUTROPHILS % eCW1 ([facility]) 13.2 11.5-14.5 RED CELL DISTRIBUTION WID TH eCW1 ([facility]) 278 150-450 PLATELET COUNT, AUTOMATED eCW1 ([facility]) 9.3 2.0-8.0 MONO % eCW1 ([facility]) 2.8 0.0-3.0 EOS % eCW1 ([facility]) 1.1 0.0-1.0 BASO % eCW1 ([facility]) 39.1 24.0-44.0 LYMPH % eCW1 ([facility]) 3.4 1.5-8.5 NEUTROPHILS # eCW1 ([facility]) 0.0 0-0 NUCLEATED RED BLOOD CELL % eCW 1 ([facility]) 0.4 0-3.0 IMMATURE GRANULOCYTE % eCW1 ([facility]) 2.8 1.5-5.0 LYMPH # eCW1 ([facility]) 0.7 0.0-0.8 MONO # eCW1 ([facility]) 0.2 0.0-0.5 EOS # eCW1 ([facility]) 0.1 0.0-0.2 BASO # eCW1 ([facility]) ID Date Data Source TROPONIN I 12/17/2020 12:00:00 AM EST eCW1 ([facility]) Name Value Range Interpretation Code Description Data Tracey rce(s) Supporting Document(s) < 0.02 < 0.10 TROPONIN I eCW1 ([facility]) ID Date Data Source GAMMA GLUTAMYLTRANSPEPTIDASE 12/17/2020 12:00:00 AM EST eCW1 ([facility]) Name Value Range Interpretation Code Description Data Tracey rce(s) Supporting Document(s) 26 15-85 GAMMA GLUTAMYLTRANSPEPTIDASE e CW1 ([facility]) ID Date Data Source Comprehensive Metabolic Profile (CMP) 12/17/2020 12:00:00 AM EST eCW1 ([facility]) Name Value Range Interpretation Code Description Data Tracey rce(s) Supporting Document(s) 92 70-100 GLUCOSE, FASTING eCW1 ([facility]) 12 7-18 BLOOD UREA NITROGEN eCW1 ([facility]) 0.93 0.70-1.30 CREATININE FOR GFR eCW1 ([facility]) > 60.0 >56 GLOMERULAR FILTRATION RATE eCW 1 ([facility]) 138 136-145 SODIUM LEVEL eCW1 ([facility]) 4.7 3.5-5.1 POTASSIUM SERUM eCW1 ([facility]) 103 98-107 CHLORIDE LEVEL eCW1 ([facility]) 31 21-32 CARBON DIOXIDE LEVEL eCW1 ([facility]) 8.8 8.5-10.1 CALCIUM LEVEL eCW1 ([facility]) 37 7-37 AST/SGOT eCW1 (Formerly [facility]) 38 12-78 ALT/SGPT eCW1 ([facility]ly [facility]) 181 45-117 ALKALINE PHOSPHATASE eCW1 ([facility]) 7.1 6.4-8.2 TOTAL PROTEIN eCW1 ([facility]) 0.4 0.2-1.0 BILIRUBIN,TOTAL eCW1 ([facility]) 3.6 3.2-5.2 ALBUMIN eCW1 (Formerly [facility]) 1.0 ALBUMIN/GLOBULIN RATIO eCW1 (Formerly [facility]) ID Date Data Source NT-PRO BNP 12/17/2020 12:00:00 AM EST eCW1 (Formerly [facility]) Name Value Range Interpretation Code Description Data Tracey rce(s) Supporting Document(s) 11 <125 NT-PRO BNP eCW1 ([facility]ly [facility]) ID Date Data Source [id number] 10/06/2020 12:00:00 AM EST [facility] Name Value Range Interpretation Code Description Data Tracey rce(s) Supporting Document(s) 2019-nCoV RNA XXX ELIDA+probe-Imp [facility] This lab was ordered by [facility] and reported by [employer] Procedure Social History Code Duration Value Status Description Data Source(s ) Smoking 08/10/2021 12:00:00 AM EDT Never Smoker completed Never S moker eCW1 ([facility]) Smoking 08/10/2021 12:00:00 AM EDT Never Smoker completed Never S moker eCW1 ([facility]) Smoking 06/24/2021 12:00:00 AM EDT Never Smoker completed Never S moker eCW1 ([facility]) Smoking 06/24/2021 12:00:00 AM EDT Never Smoker completed Never S moker eCW1 ([facility]) Smoking 06/24/2021 12:00:00 AM EDT Never Smoker completed Never S moker eCW1 ([facility]) Smoking 06/24/2021 12:00:00 AM EDT Never Smoker completed Never S moker eCW1 ([facility]) Smoking 06/24/2021 12:00:00 AM EDT Never Smoker completed Never S moker eCW1 ([facility]) Smoking 03/13/2021 12:00:00 AM EDT Never Smoker completed Never S moker eCW1 ([facility]) Smoking 03/13/2021 12:00:00 AM EDT Never Smoker completed Never S moker eCW1 ([facility]) Smoking 03/13/2021 12:00:00 AM EDT Never Smoker completed Never S moker eCW1 ([facility]) Smoking 03/13/2021 12:00:00 AM EDT Never Smoker completed Never S moker eCW1 ([facility]) Smoking 03/13/2021 12:00:00 AM EDT Never Smoker completed Never S moker eCW1 ([facility]) Smoking 03/13/2021 12:00:00 AM EDT Never Smoker completed Never S moker eCW1 ([facility]) Smoking 03/13/2021 12:00:00 AM EDT Never Smoker completed Never S moker eCW1 ([facility]) Smoking 03/13/2021 12:00:00 AM EDT Never Smoker completed Never S moker eCW1 ([facility]) Smoking 03/13/2021 12:00:00 AM EDT Never Smoker completed Never S moker eCW1 ([facility]) Smoking 03/13/2021 12:00:00 AM EDT Never Smoker completed Never S moker eCW1 ([facility]) Smoking 03/13/2021 12:00:00 AM EDT Never Smoker completed Never S moker eCW1 ([facility]) Smoking 03/13/2021 12:00:00 AM EDT Never Smoker completed Never S moker eCW1 ([facility]) Smoking 03/13/2021 12:00:00 AM EDT Never Smoker completed Never S moker eCW1 ([facility]) Smoking 03/13/2021 12:00:00 AM EDT Never Smoker completed Never S moker eCW1 ([facility]) Smoking 03/13/2021 12:00:00 AM EDT Never Smoker completed Never S moker eCW1 ([facility]) Smoking 03/13/2021 12:00:00 AM EDT Never Smoker completed Never S moker eCW1 ([facility]) Smoking 03/13/2021 12:00:00 AM EDT Never Smoker completed Never S moker eCW1 ([facility]) Smoking 03/13/2021 12:00:00 AM EDT Never Smoker completed Never S moker eCW1 ([facility]) Smoking 02/17/2021 12:00:00 AM EDT Never Smoker completed Never S moker eCW1 ([facility]) Smoking 02/17/2021 12:00:00 AM EDT Never Smoker completed Never S moker eCW1 ([facility]) Smoking 02/17/2021 12:00:00 AM EDT Never Smoker completed Never S moker eCW1 ([facility]) Smoking 02/17/2021 12:00:00 AM EDT Never Smoker completed Never S moker eCW1 ([facility]) Smoking 02/17/2021 12:00:00 AM EDT Never Smoker completed Never S moker eCW1 ([facility]) Smoking 12/17/2020 12:00:00 AM EST Never Smoker completed Never S moker eCW1 ([facility]) Smoking 12/17/2020 12:00:00 AM EST Never Smoker completed Never S moker eCW1 ([facility]) Smoking 12/17/2020 12:00:00 AM EST Never Smoker completed Never S moker eCW1 ([facility]) Smoking 12/17/2020 12:00:00 AM EST Never Smoker completed Never S moker eCW1 ([facility]) Smoking 12/17/2020 12:00:00 AM EST Never Smoker completed Never S moker eCW1 ([facility]) Smoking 12/17/2020 12:00:00 AM EST Never Smoker completed Never S moker eCW1 ([facility]) Smoking 12/17/2020 12:00:00 AM EST Never Smoker completed Never S moker eCW1 ([facility]) Smoking 12/17/2020 12:00:00 AM EST Never Smoker completed Never S moker eCW1 ([facility]) Smoking 12/17/2020 12:00:00 AM EST Never Smoker completed Never S moker eCW1 ([facility]) Smoking 12/17/2020 12:00:00 AM EST Never Smoker completed Never S moker eCW1 ([facility]) Smoking 12/17/2020 12:00:00 AM EST Never Smoker completed Never S moker eCW1 ([facility]) Smoking 12/17/2020 12:00:00 AM EST Never Smoker completed Never S moker eCW1 ([facility]) Smoking 12/02/2020 12:00:00 AM EST Never Smoker completed Never S moker eCW1 ([facility]) Smoking 12/02/2020 12:00:00 AM EST Never Smoker completed Never S moker eCW1 ([facility]) Smoking 11/17/2020 12:00:00 AM EST Never Smoker completed Never S moker eCW1 ([facility]) Smoking 11/17/2020 12:00:00 AM EST Never Smoker completed Never S moker eCW1 ([facility]) Smoking 11/17/2020 12:00:00 AM EST Never Smoker completed Never S moker eCW1 ([facility]) Smoking 10/17/2020 12:00:00 AM EST Never Smoker completed Never S moker eCW1 ([facility]) Smoking 10/17/2020 12:00:00 AM EST Never Smoker completed Never S moker eCW1 ([facility]) Smoking 10/17/2020 12:00:00 AM EST Never Smoker completed Never S moker eCW1 ([facility]) Smoking 10/17/2020 12:00:00 AM EST Never Smoker completed Never S moker eCW1 ([facility]) Smoking 10/17/2020 12:00:00 AM EST Never Smoker completed Never S moker eCW1 ([facility]) Smoking 10/17/2020 12:00:00 AM EST Never Smoker completed Never S moker eCW1 ([facility]) Smoking 10/17/2020 12:00:00 AM EST Never Smoker completed Never S moker eCW1 ([facility]) Smoking 09/11/2020 12:00:00 AM EST Never Smoker completed Never S moker eCW1 ([facility]) Smoking 09/11/2020 12:00:00 AM EST Never Smoker completed Never S moker eCW1 ([facility]) Smoking 09/11/2020 12:00:00 AM EST Never Smoker completed Never S moker eCW1 ([facility]) Smoking 09/11/2020 12:00:00 AM EST Never Smoker completed Never S moker eCW1 ([facility]) Smoking 09/11/2020 12:00:00 AM EST Never Smoker completed Never S moker eCW1 ([facility]) Smoking 09/11/2020 12:00:00 AM EST Never Smoker completed Never S moker eCW1 ([facility]) Vital Signs ID Date Data Source UNK Name Value Range Interpretation Code Description Data Source(s) Body weight 170 [lb_av] 170 [lb_av] eCW1 ([facility]) Body weight 77.11 kg 77.11 kg eCW1 (Formerly [facility]) Body height 65 [in_i] 65 [in_i] eCW1 (Formerly [facility]) Heart rate 77 /min 77 /min eCW1 ([facility]) Respiratory rate 18 /min 18 /min eCW1 ([facility]) Body temperature 98.3 [degF] 98.3 [degF] eCW1 ( [facility]) Systolic blood pressure 122 mm[Hg] 122 mm[Hg] e CW1 ([facility]) Diastolic blood pressure 78 mm[Hg] 78 mm[Hg] eCW1 ([facility]) Body mass index (BMI) [Ratio] 28.29 kg/m2 28.29 kg/m2 eCW1 ([facility]) Body weight 174 [lb_av] 174 [lb_av] eCW1 ([facility]) Body weight 78.93 kg 78.93 kg eCW1 (Formerly [facility]) Body height 65 [in_i] 65 [in_i] eCW1 (Formerly [facility]) Body mass index (BMI) [Ratio] 28.95 kg/m2 28.95 kg/m2 eCW1 ([facility]) Heart rate 84 /min 84 /min eCW1 ([facility]) Respiratory rate 18 /min 18 /min eCW1 ([facility]) Body temperature 98 [degF] 98 [degF] eCW1 ([facility]) Body weight 174 [lb_av] 174 [lb_av] eCW1 ([facility]) Body height 65 [in_i] 65 [in_i] eCW1 ([facility]ly [facility]) Body mass index (BMI) [Ratio] 28.95 kg/m2 28.95 kg/m2 eCW1 ([facility]) Diastolic blood pressure 78 mm[Hg] 78 mm[Hg] eCW1 ([facility]) Heart rate 95 /min 95 /min eCW1 ([facility]) Respiratory rate 20 /min 20 /min eCW1 ([facility]) Body temperature 98.7 [degF] 98.7 [degF] eCW1 ( [facility]) Systolic blood pressure 122 mm[Hg] 122 mm[Hg] e CW1 ([facility]) Systolic blood pressure 122 mm[Hg] 122 mm[Hg] e CW1 ([facility]) Body weight 178 [lb_av] 178 [lb_av] eCW1 ([facility]) Body height 65 [in_i] 65 [in_i] eCW1 ([facility]ly [facility]) Body mass index (BMI) [Ratio] 29.62 kg/m2 29.62 kg/m2 eCW1 ([facility]) Heart rate 87 /min 87 /min eCW1 ([facility]) Respiratory rate 18 /min 18 /min eCW1 ([facility]) Body temperature 98.5 [degF] 98.5 [degF] eCW1 ( [facility]) Diastolic blood pressure 80 mm[Hg] 80 mm[Hg] eCW1 ([facility]) Body weight 182 [lb_av] 182 [lb_av] eCW1 ([facility]) Body height 65 [in_i] 65 [in_i] eCW1 (Formerly [facility]) Body mass index (BMI) [Ratio] 30.28 kg/m2 30.28 kg/m2 eCW1 ([facility]) Heart rate 79 /min 79 /min eCW1 ([facility]) Respiratory rate 18 /min 18 /min eCW1 ([facility]) Body temperature 98 [degF] 98 [degF] eCW1 ([facility]) Systolic blood pressure 124 mm[Hg] 124 mm[Hg] e CW1 ([facility]) Diastolic blood pressure 92 mm[Hg] 92 mm[Hg] eCW1 ([facility]) Body weight 173 [lb_av] 173 [lb_av] eCW1 ([facility]) Body height 65 [in_i] 65 [in_i] eCW1 (Formerly [facility]) Body mass index (BMI) [Ratio] 28.79 kg/m2 28.79 kg/m2 eCW1 ([facility]) Heart rate 97 /min 97 /min eCW1 ([facility]) Respiratory rate 18 /min 18 /min eCW1 ([facility]) Body temperature 99.1 [degF] 99.1 [degF] eCW1 ( [facility]) Systolic blood pressure 128 mm[Hg] 128 mm[Hg] e CW1 ([facility]) Diastolic blood pressure 62 mm[Hg] 62 mm[Hg] eCW1 ([facility]) Systolic blood pressure 118 mm[Hg] 118 mm[Hg] e CW1 ([facility]) Body weight 174.4 [lb_av] 174.4 [lb_av] eCW1 ([facility]ly [facility]) Body height 65 [in_i] 65 [in_i] eCW1 (Formerly [facility]) Body mass index (BMI) [Ratio] 29.02 kg/m2 29.02 kg/m2 eCW1 ([facility]) Diastolic blood pressure 78 mm[Hg] 78 mm[Hg] eCW1 ([facility]) Heart rate 95 /min 95 /min eCW1 ([facility]) Respiratory rate 20 /min 20 /min eCW1 ([facility]) Body temperature 96.3 [degF] 96.3 [degF] eCW1 ( [facility]) Body weight 177 [lb_av] 177 [lb_av] eCW1 ([facility]) Body height 65 [in_i] 65 [in_i] eCW1 (Formerly [facility]) Body mass index (BMI) [Ratio] 29.45 kg/m2 29.45 kg/m2 eCW1 ([facility]) Heart rate 69 /min 69 /min eCW1 ([facility]) Respiratory rate 16 /min 16 /min eCW1 ([facility]) Body temperature 98.8 [degF] 98.8 [degF] eCW1 ( [facility]) Systolic blood pressure 128 mm[Hg] 128 mm[Hg] e CW1 ([facility]) Diastolic blood pressure 78 mm[Hg] 78 mm[Hg] eCW1 ([facility]) Body weight 171.8 [lb_av] 171.8 [lb_av] eCW1 ([facility]) Body height 65 [in_i] 65 [in_i] eCW1 (Formerly [facility]) Body mass index (BMI) [Ratio] 28.59 kg/m2 28.59 kg/m2 eCW1 ([facility]) Heart rate 69 /min 69 /min eCW1 ([facility]) Respiratory rate 18 /min 18 /min eCW1 ([facility]) Body temperature 98.0 [degF] 98.0 [degF] eCW1 ( [facility]) Systolic blood pressure 130 mm[Hg] 130 mm[Hg] e CW1 ([facility]) Diastolic blood pressure 82 mm[Hg] 82 mm[Hg] eCW1 ([facility]) Patient Treatment Plan of Care Planned Activity Planned Date Details Description Data Source (s) Eszopiclone 2 MG Oral Tablet [Lunesta] 08/17/2021 12:00:00 AM EDT eCW1 ([facility]) Lorazepam 0.5 MG Oral Tablet 08/17/2021 12:00:00 AM EDT eCW1 ([facility]) Methylphenidate HCl ER (CD) 10 MG 08/10/2021 12:00:00 AM EDT eCW1 ([facility]) Methylphenidate HCl ER (CD) 10 MG 08/10/2021 12:00:00 AM EDT eCW1 ([facility]) Methylphenidate HCl ER (CD) 10 MG 07/28/2021 12:00:00 AM EDT eCW1 ([facility]) pregabalin 200 MG Oral Capsule [Lyrica] 07/28/2021 12:00:00 AM EDT eCW1 ([facility]) Eszopiclone 2 MG Oral Tablet [Lunesta] 07/28/2021 12:00:00 AM EDT eCW1 ([facility]) 2500 MG Testosterone 0.0162 MG/MG Topical Gel [Androge l] 07/21/2021 12:00:00 AM EDT eCW1 (Formerly [facility]) Lorazepam 0.5 MG Oral Tablet 07/21/2021 12:00:00 AM EDT eCW1 ([facility]) 2500 MG Testosterone 0.0162 MG/MG Topical Gel [Androge l] 07/21/2021 12:00:00 AM EDT eCW1 ([facility]ly [facility]) Lorazepam 0.5 MG Oral Tablet 07/21/2021 12:00:00 AM EDT eCW1 ([facility]) Methylphenidate HCl ER (CD) 10 MG 07/01/2021 12:00:00 AM EDT eCW1 ([facility]) NITROFURANTOIN, MACROCRYSTALS 25 MG / Ni trofurantoin, Monohydrate 75 MG Oral Capsule 06/24/2021 12:00:00 AM EDT eCW1 ([facility]) NITROFURANTOIN, MACROCRYSTALS 25 MG / Ni trofurantoin, Monohydrate 75 MG Oral Capsule 06/24/2021 12:00:00 AM EDT eCW1 ([facility]) Lorazepam 0.5 MG Oral Tablet 06/22/2021 12:00:00 AM EDT eCW1 ([facility]) pregabalin 200 MG Oral Capsule [Lyrica] 06/22/2021 12:00:00 AM EDT eCW1 ([facility]) Lorazepam 0.5 MG Oral Tablet 06/22/2021 12:00:00 AM EDT eCW1 ([facility]) Methylphenidate HCl ER (CD) 10 MG 06/04/2021 12:00:00 AM EDT eCW1 ([facility]) Methylphenidate HCl ER (CD) 10 MG 06/04/2021 12:00:00 AM EDT eCW1 ([facility]) 2500 MG Testosterone 0.0162 MG/MG Topical Gel [Androge l] 06/01/2021 12:00:00 AM EDT eCW1 ([facility]) 2500 MG Testosterone 0.0162 MG/MG Topical Gel [Androge l] 06/01/2021 12:00:00 AM EDT eCW1 ([facility]) 2500 MG Testosterone 0.0162 MG/MG Topical Gel [Androge l] 06/01/2021 12:00:00 AM EDT eCW1 ([facility]) 2500 MG Testosterone 0.0162 MG/MG Topical Gel [Androge l] 06/01/2021 12:00:00 AM EDT eCW1 ([facility]) sildenafil 50 MG Oral Tablet [Viagra] 05/05/2021 12:00:00 AM EDT eCW1 ([facility]) sildenafil 50 MG Oral Tablet [Viagra] 05/05/2021 12:00:00 AM EDT eCW1 ([facility]) sildenafil 50 MG Oral Tablet [Viagra] 05/05/2021 12:00:00 AM EDT eCW1 ([facility]) Methylphenidate HCl ER (CD) 10 MG 05/05/2021 12:00:00 AM EDT eCW1 ([facility]) sildenafil 50 MG Oral Tablet [Viagra] 05/05/2021 12:00:00 AM EDT eCW1 ([facility]) Methylphenidate HCl ER (CD) 10 MG 05/05/2021 12:00:00 AM EDT eCW1 ([facility]) sildenafil 50 MG Oral Tablet [Viagra] 05/05/2021 12:00:00 AM EDT eCW1 ([facility]) Methylphenidate HCl ER (CD) 10 MG 05/05/2021 12:00:00 AM EDT eCW1 ([facility]) sildenafil 50 MG Oral Tablet [Viagra] 05/05/2021 12:00:00 AM EDT eCW1 ([facility]) Methylphenidate HCl ER (CD) 10 MG 05/05/2021 12:00:00 AM EDT eCW1 ([facility]) sildenafil 50 MG Oral Tablet [Viagra] 05/05/2021 12:00:00 AM EDT eCW1 ([facility]) Methylphenidate HCl ER (CD) 10 MG 05/05/2021 12:00:00 AM EDT eCW1 ([facility]) Methylphenidate HCl ER (CD) 10 MG 05/05/2021 12:00:00 AM EDT eCW1 ([facility]) sildenafil 50 MG Oral Tablet [Viagra] 05/05/2021 12:00:00 AM EDT eCW1 ([facility]) Methylphenidate HCl ER (CD) 10 MG 05/05/2021 12:00:00 AM EDT eCW1 ([facility]) sildenafil 50 MG Oral Tablet [Viagra] 05/05/2021 12:00:00 AM EDT eCW1 ([facility]) Methylphenidate HCl ER (CD) 10 MG 05/05/2021 12:00:00 AM EDT eCW1 ([facility]) sildenafil 50 MG Oral Tablet [Viagra] 05/05/2021 12:00:00 AM EDT eCW1 ([facility]) Methylphenidate HCl ER (CD) 10 MG 04/28/2021 12:00:00 AM EDT eCW1 ([facility]) Methylphenidate Hydrochloride 5 MG Oral Tablet 04/20/2021 12:00:00 AM EDT eCW1 ([facility]) Methylphenidate Hydrochloride 5 MG Oral Tablet 04/20/2021 12:00:00 AM EDT eCW1 ([facility]) Methylphenidate Hydrochloride 5 MG Oral Tablet 04/20/2021 12:00:00 AM EDT eCW1 ([facility]) Methylphenidate HCl ER (CD) 10 MG 03/13/2021 12:00:00 AM EDT eCW1 ([facility]) Methylphenidate HCl ER (CD) 10 MG 03/13/2021 12:00:00 AM EDT eCW1 ([facility]) Methylphenidate HCl ER (CD) 10 MG 03/13/2021 12:00:00 AM EDT eCW1 ([facility]) Methylphenidate HCl ER (CD) 10 MG 03/13/2021 12:00:00 AM EDT eCW1 ([facility]) Methylphenidate Hydrochloride 5 MG Oral Tablet 03/03/2021 12:00:00 AM EDT eCW1 ([facility]) Sulfasalazine 500 MG Delayed Release Oral Tablet 02/17/2021 12:00:0 0 AM EDT eCW1 ([facility]) Sulfasalazine 500 MG Delayed Release Oral Tablet 02/17/2021 12:00:0 0 AM EDT eCW1 ([facility]) Sulfasalazine 500 MG Delayed Release Oral Tablet 02/17/2021 12:00:0 0 AM EDT eCW1 ([facility]) Sulfasalazine 500 MG Delayed Release Oral Tablet 02/17/2021 12:00:0 0 AM EDT eCW1 ([facility]) Sulfasalazine 500 MG Delayed Release Oral Tablet 02/17/2021 12:00:0 0 AM EDT eCW1 ([facility]) Sulfasalazine 500 MG Delayed Release Oral Tablet 02/17/2021 12:00:0 0 AM EDT eCW1 ([facility]) Sulfasalazine 500 MG Delayed Release Oral Tablet 02/17/2021 12:00:0 0 AM EDT eCW1 ([facility]) Methylphenidate Hydrochloride 5 MG Oral Tablet 02/05/2021 12:00:00 AM EDT eCW1 ([facility]) Methylphenidate Hydrochloride 5 MG Oral Tablet 02/05/2021 12:00:00 AM EDT eCW1 ([facility]) Methylphenidate Hydrochloride 5 MG Oral Tablet 01/07/2021 12:00:00 AM EST eCW1 ([facility]) Methylphenidate Hydrochloride 5 MG Oral Tablet 01/07/2021 12:00:00 AM EST eCW1 ([facility]) Methylphenidate Hydrochloride 5 MG Oral Tablet 01/07/2021 12:00:00 AM EST eCW1 ([facility]) Methylphenidate Hydrochloride 5 MG Oral Tablet 01/07/2021 12:00:00 AM EST eCW1 ([facility]) Methylphenidate Hydrochloride 5 MG Oral Tablet 12/12/2020 12:00:00 AM EST eCW1 ([facility]) Diclofenac Sodium 0.01 MG/MG Topical Gel [Voltaren] 12/02/19 12:00:00 AM EST eCW1 ([facility]) Diclofenac Sodium 0.01 MG/MG Topical Gel [Voltaren] 12/02/19 12:00:00 AM EST eCW1 ([facility]) Methylphenidate Hydrochloride 10 MG Oral Tablet 11/03/2020 12:00:00 AM EST eCW1 ([facility]) Methylphenidate Hydrochloride 10 MG Oral Tablet 11/03/2020 12:00:00 AM EST eCW1 ([facility]) Methylphenidate Hydrochloride 10 MG Oral Tablet 10/20/2020 12:00:00 AM EST eCW1 ([facility]) Methylphenidate Hydrochloride 10 MG Oral Tablet 10/20/2020 12:00:00 AM EST eCW1 ([facility]) Methylphenidate Hydrochloride 10 MG Oral Tablet 10/20/2020 12:00:00 AM EST eCW1 ([facility]) Methylphenidate Hydrochloride 10 MG Oral Tablet 10/20/2020 12:00:00 AM EST eCW1 ([facility]) Methylphenidate HCl ER (LA) 10 MG 10/17/2020 12:00:00 AM EST eCW1 ([facility]) Methylphenidate Hydrochloride 5 MG Oral Tablet 10/02/2020 12:00:00 AM EST eCW1 ([facility]) atorvastatin 20 MG Oral Tablet 08/01/2020 12:00:00 AM EDT eCW1 ([facility]) atorvastatin 20 MG Oral Tablet 08/01/2020 12:00:00 AM EDT eCW1 ([facility]) atorvastatin 20 MG Oral Tablet 08/01/2020 12:00:00 AM EDT eCW1 ([facility]) atorvastatin 20 MG Oral Tablet 08/01/2020 12:00:00 AM EDT eCW1 ([facility]) atorvastatin 20 MG Oral Tablet 08/01/2020 12:00:00 AM EDT eCW1 ([facility]) atorvastatin 20 MG Oral Tablet 08/01/2020 12:00:00 AM EDT eCW1 ([facility]) atorvastatin 20 MG Oral Tablet 08/01/2020 12:00:00 AM EDT eCW1 ([facility]) atorvastatin 20 MG Oral Tablet 08/01/2020 12:00:00 AM EDT eCW1 ([facility]) atorvastatin 20 MG Oral Tablet 08/01/2020 12:00:00 AM EDT eCW1 ([facility])
[2021-09-03] MEDS: LEVOTHYROXINE 125MCG TABLET (0.125MG) PO SCH (06:00)
--- NOTE | 2021-09-03 06:46 | REPVR ---
PROCEDURE INFORMATION: Exam: US Duplex Left Lower Extremity Veins, Limited Exam date and time: 09/03/2021 6:28 AM Age: 56 years old Clinical indication: Pain; Leg, lower; Left; Additional info: Cramping left calf leg TECHNIQUE: Imaging protocol: Real-time Duplex ultrasound of the Left Lower Extremity with 2-D mahan scale, color Doppler flow and spectral waveform analysis with image documentation. Limited exam focused on the left lower extremity veins. COMPARISON: RENAL US 08/24/2016 2:14 PM FINDINGS: Left deep veins: Unremarkable. The common femoral, femoral, proximal profunda femoral and popliteal veins are patent without thrombus. Normal Doppler waveforms. Normal compressibility and/or augmentation response. The left peroneal and posterior tibial veins were not visualized. No DVT seen in the contralateral common femoral vein. Left superficial veins: Unremarkable. Saphenofemoral junction is patent without thrombus. Soft tissues: Unremarkable. IMPRESSION: No evidence of left lower extremity deep vein thrombosis. Electronically signed by: Horace Grullon On 09/03/2021 06:45:48 AM
--- OUTSIDE RECORDS SUMMARY | 2021-09-03 07:14 | CCD ---
Author Author [facility] Organization [facility] Address Unknown Phone Unavailable Support Name Relationship Address Phone SHERRI SANTOYO Next Of Kin Unknown KHALIDA GODOY Next Of Kin [address] [place] [address] ROCÍO JERONIMO Next Of Kin [address] [place] [address] DMITRI MENDOZA Next Of Kin [address] [place] [address] L DARLINGSUSY Nelson Next Of Kin [address] [place] [address] RAYMOUR Next Of Kin [address] [place] [address] UE Next Of Kin Unknown Unavailable KHALIDA AMBROSE Next Of Kin [address] [facility], [address] DISABLED Next Of Kin Unknown SUSY JERONIMO Next Of Kin [address] [place] [address] ROCÍO JERONIMO ECON [address] [place] [address] Unavailable Re-disclosure Warning The records that you [...] is protected by Article 27-F of the [place] Public Health law. If you continue you may have access to information: Regarding HIV / AIDS; Provided by facilities licensed or operated by the [facility] Office of Mental Health; or Provided by the [facility] Office for People With Developmental Disabilities. If such information is present, then the following [facility] mandated warning applies: This information has [...] law may result in a fine or correction sentence or both. A general authorization for the release of medical or other information is NOT sufficient authorization for further disc losure. Encounters Encounter Providers Location Date Indications Data Source(s ) Unknown [address] [facility] [address] 08/17/2021 12:00:00 AM EDT [facility] Outpatient [address] [facility] [address] 08/10/2021 12:00:00 AM EDT [facility] Unknown [address] [facility] [address] 07/24/2021 12:00:00 AM EDT [facility] Unknown [address] [facility] [address] 07/20/2021 12:00:00 AM EDT [facility]CW[facility] Unknown [address] [facility] [address] 07/20/2021 12:00:00 AM EDT [facility]CW1 [facility]) Unknown [address] [facility] [address] 06/30/2021 12:00:00 AM EDT eCW1 [facility]) Office Visit, Est Pt., Level 3 PC [address] [place] [address] 06/24/2021 12:00:00 AM EDT eCW1 ([facility]) [place] [address] [facility] [address] 06/22/2021 12:00:00 AM EDT eCW1 ([facility]) [place] [address] [facility] [address] 06/02/2021 12:00:00 AM EDT eCW1 ([facility]) [place] [address] [facility] [address] 06/01/2021 12:00:00 AM EDT eCW1 ([facility]) [place] [address] [facility] [address] 05/27/2021 12:00:00 AM EDT eCW1 ([facility]) Unknown [address] [facility] [address] 05/26/2021 12:00:00 AM EDT eCW1 ([facility]) Unknown [address] [facility] [address] 05/22/2021 12:00:00 AM EDT [facility]CW1 [facility] [place] [address] [facility] [address] 05/05/2021 12:00:00 AM EDT eCW1 ([facility]) Unknown [address] [facility] [address] 05/05/2021 12:00:00 AM EDT eCW1 ([facility]) Unknown [address] [facility] [address] 04/28/2021 12:00:00 AM EDT eCW1 ([facility]) Unknown [address] [facility] [address] 04/28/2021 12:00:00 AM EDT eCW1 ([facility]) Unknown [address] [facility] [address] 04/24/2021 12:00:00 AM EDT eCW1 ([facility]) [place] [address] [facility] [address] 04/21/2021 12:00:00 AM EDT eCW1 ([facility]) Unknown [address] [facility] [address] 04/21/2021 12:00:00 AM EDT eCW1 ([facility]) Unknown [address] [facility] [address] 04/16/2021 12:00:00 AM EDT eCW1 ([facility]) Unknown [address] [facility] [address] 2021 12:00:00 AM EDT eCW1 ([facility]) Unknown [address] [facility] [address] 03/23/2021 12:00:00 AM EDT eCW1 ([facility]) Unknown [address] [facility] [address] 03/16/2021 12:00:00 AM EDT eCW1 ([facility]) Outpatient [address] [facility] [address] 03/13/2021 12:00:00 AM EDT eCW1 ([facility]) Unknown [address] [facility] [address] 03/03/2021 12:00:00 AM EDT eCW1 ([facility]) Unknown [address] [facility] [address] 02/24/2021 12:00:00 AM EDT eCW1 ([facility]) Unknown [address] [facility] [address] 02/19/2021 12:00:00 AM EDT eCW1 ([facility]) Office Visit, Est Pt., Level 3 PC [address] [place] [address] 02/17/2021 12:00:00 AM EDT eCW1 ([facility]) Unknown [address] [facility] [address] 02/17/2021 12:00:00 AM EDT [facility]CW1 [facility] [place] [address] [facility] [address] 02/10/2021 12:00:00 AM EDT eCW1 ([facility]) Unknown [address] [facility] [address] 02/04/2021 12:00:00 AM EDT eCW1 ([facility]) Unknown [address] [facility] [address] 01/26/2021 12:00:00 AM EDT eCW1 ([facility]) Unknown [address] [facility] [address] 01/21/2021 12:00:00 AM EDT eCW1 ([facility]) Unknown [address] [facility] [address] 01/19/2021 12:00:00 AM EDT eCW1 ([facility]) Unknown [address] [facility] [address] 01/07/2021 12:00:00 AM EST eCW1 ([facility]) Unknown [address] [facility] [address] 12/31/2020 12:00:00 AM EST eCW1 ([facility]) Unknown [address] [facility] [address] 12/30/2020 12:00:00 AM EST eCW1 ([facility]) Unknown [address] [facility] [address] 12/23/2020 12:00:00 AM EST eCW1 ([facility]) Unknown [address] [facility] [address] 12/19/2020 12:00:00 AM EST eCW1 ([facility]) Office Visit, Est Pt., Level 3 PC [address] [place] [address] 12/17/2020 12:00:00 AM EST eCW1 ([facility]) Unknown [address] [facility] [address] 12/16/2020 12:00:00 AM EST eCW1 ([facility]) Unknown [address] [facility] [place] [address] 12/10/2020 12:00:00 AM EST eCW1 ([facility]) Office Visit, Est Pt., Level 3 PC [address] [place] [address] 12/02/2020 12:00:00 AM EST [facility]CW1 [facility] [place] [address] [facility] [address] 11/26/2020 12:00:00 AM EST eCW1 ([facility]) Unknown [address] [facility] [place] [address] 11/24/2020 12:00:00 AM EST eCW1 ([facility]) Outpatient [address] [facility] [place] [address] 11/17/2020 12:00:00 AM EST eCW1 ([facility]) Unknown [address] [facility] [place] [address] 11/04/2020 12:00:00 AM EST eCW1 ([facility]) Unknown [address] [facility] [address] 10/29/2020 12:00:00 AM EST eCW1 ([facility]) Unknown [address] [facility] [place] [address] 10/21/2020 12:00:00 AM EST eCW1 ([facility]) Unknown [address] [facility] [place] [address] 10/20/2020 12:00:00 AM EST eCW1 ([facility]) Unknown [address] [facility] [place] [address] 10/17/2020 12:00:00 AM EST eCW1 ([facility]) Office Visit, Est Pt., Level 4 PC [address] [place] [address] 10/17/2020 12:00:00 AM EST eCW1 ([facility]) Unknown [address] [facility] [address] 10/17/2020 12:00:00 AM EST eCW1 ([facility]) Unknown [address] [facility] [address] 09/30/2020 12:00:00 AM EST eCW1 ([facility]) Unknown [address] [facility] [place] [address] 09/29/2020 12:00:00 AM EST eCW1 ([facility]) Unknown [address] [facility] [address] 09/22/2020 12:00:00 AM EST eCW1 ([facility]) Unknown [address] [facility] [address] 09/18/2020 12:00:00 AM EST eCW1 ([facility]) Unknown [address] [facility] [address] 09/16/2020 12:00:00 AM EST eCW1 ([facility]) Outpatient [address] [facility] [address] 09/11/2020 12:00:00 AM EST eCW1 ([facility]) Unknown [address] [facility] [address] 08/29/2020 12:00:00 AM EDT eCW1 ([facility]) Unknown [address] [facility] [address] 08/07/2020 12:00:00 AM EDT eCW1 ([facility]) Unknown [address] [facility] [place] [address] 08/01/2020 12:00:00 AM EDT eCW1 ([facility]) Unknown [address] [facility] [address] 07/31/2020 12:00:00 AM EDT eCW1 ([facility]) Immunizations Vaccine Date Status Description Data Source(s) COVID-19 VACC,MRNA(MODERNA)/PF 03/05/2021 12:00:00 AM EDT completed [facility] COVID-19 VACCINE Moderna 03/05/2021 12:00:00 AM EDT completed [facility] Vaccine Series Complete: YESThis Data wa s Submitted to [facility] [employer]. COVID-19 VACCINE Moderna 02/05/2021 12:00:00 AM EDT completed [facility] Vaccine Series Complete: NOThis Data was Submitted to [facility] [employer]. COVID-19 VACCINE, MRNA-1273, LNP-S (MODERNA)/PF 02/05/2021 1 [...] 1.0 {tablet_immediately_before_bedtime} active Lunesta 2 MG eCW1 ([facility]) Lorazepam 0.5 MG Oral Tablet LORazepam 0.5 MG LORazepam 0.5 MG 08/17/2021 12:00:00 AM EDT active LORazepa m 0.5 MG eCW1 ([facility]) 10 mg 08/15/2021 12:00:00 AM EDT capsule, ER biphasic 30 -70 60 TAKE ONE CAPSULE BY MOUTH TWICE A DAY MAXIMUM DAILY DOSE = 2 CAPSULES TAKE ONE CAPSULE BY MOUTH TWICE A DAY MAXIMUM DAILY DOSE = 2 CAPSULES SOLD: 08/15/2021 [facility] Methylphenidate HCl ER (CD) 10 MG Methylphenidate HCl ER (CD ) 10 MG 08/10/2021 12:00:00 AM EDT active Methylph enidate HCl ER (CD) 10 MG eCW1 ([facility]) Methylphenidate HCl ER (CD) 10 MG Methylphenidate HCl ER (CD ) 10 MG 08/10/2021 12:00:00 AM EDT active Methylph enidate HCl ER (CD) 10 MG eCW1 ([facility]) 10 mg 08/01/2021 12:00:00 AM EDT capsule, ER biphasic 30 -70 10 TAKE ONE CAPSULE BY MOUTH EVERY MORNING MAXIMUM DAILY DOSE = 1 CAPSULE TAKE ONE CAPSULE BY MOUTH EVERY MORNING MAXIMUM DAILY DOSE = 1 CAPSULE SOLD: 08/01/2021 [facility] 10 mg 08/01/2021 12:00:00 AM EDT capsule, ER biphasic 30 -70 20 TAKE ONE CAPSULE BY MOUTH EVERY MORNING MAXIMUM DAILY DOSE = 1 CAPSULE TAKE ONE CAPSULE BY MOUTH EVERY MORNING MAXIMUM DAILY DOSE = 1 CAPSULE SOLD: 08/01/2021 [facility] 12-3 mg 07/31/2021 12:00:00 AM EDT film [address] 1 & 1/2 FILMS UNDER THE TONGUE EVERY DAY MAXIMUM DAILY DOSE = 1 & 1/[address] 1 & 1/2 FILMS UNDER THE TONGUE EVERY DAY MAXIMUM DAILY DOSE = 1 & 1/2 FILMS SOLD: 08/01/2021 [facility] pregabalin 200 MG Oral Capsule [Lyrica] Lyrica 200 MG Lyrica 200 MG 07/28/2021 12:00:00 AM EDT 1.0 {capsule} active L yrica 200 MG eCW1 ([facility]) 200 mg 07/28/2021 12:00:00 AM EDT capsule [...] 1.0 {tablet_immediately_before_bedtime} active Lunesta 2 MG eCW1 ([facility]) Methylphenidate HCl ER (CD) 10 MG Methylphenidate HCl ER (CD ) 10 MG 07/28/2021 12:00:00 AM EDT active Methylph enidate HCl ER (CD) 10 MG eCW1 ([facility]) 2500 MG Testosterone 0.0162 MG/MG Topica l Gel [Androgel] AndroGel 40.5 MG/2.5GM (1.62%) AndroGel 40.5 MG/2.5GM (1.62%) 07/21/2021 12:00:00 AM EDT active AndroGel 40.5 MG/2.5GM (1.62%) e CW1 ([facility]) 0.5 mg 07/21/2021 12:00:00 AM EDT tablet 60 TAKE ONE TABLET BY MOUTH TWICE A DAY NEEDED MAXIMUM DAILY DOSE = 2 TABLETS TAKE ONE TABLET BY MOUTH TWICE A DAY NEEDED MAXIMUM DAILY DOSE = 2 TABLETS SOLD: 07/23/2021 [facility] Lorazepam 0.5 MG Oral Tablet LORazepam 0.5 MG LORazepam 0.5 MG 07/21/2021 12:00:00 AM EDT active LORazepa m 0.5 MG eCW1 ([facility]) 2500 MG Testosterone 0.0162 MG/MG Topica l Gel [Androgel] AndroGel 40.5 MG/2.5GM (1.62%) AndroGel 40.5 MG/2.5GM (1.62%) 07/21/2021 12:00:00 AM EDT active AndroGel 40.5 MG/2.5GM (1.62%) e CW1 ([facility]) Lorazepam 0.5 MG Oral Tablet LORazepam 0.5 MG LORazepam 0.5 MG 07/21/2021 12:00:00 AM EDT active LORazepa m 0.5 MG eCW1 ([facility]) 20.25 mg/1.25 gram (1.62 %) 07/21/2021 12:00:00 AM EDT gel in metered-dose pump 150 APPLY 4 PUMPS TO THE SKIN ONCE D AILY MAXIMUM DAILY DOSE = 4 PUMPS APPLY 4 PUMPS TO THE SKIN ONCE DAILY MAXIMUM DAILY DOSE = 4 PUMPS SOLD: 07/23/2021 [facility] 10 mg 07/03/2021 12:00:00 AM EDT [...] enidate HCl ER (CD) 10 MG eCW1 ([facility]) Methylphenidate HCl ER (CD) 10 MG Methylphenidate HCl ER (CD ) 10 MG 07/01/2021 12:00:00 AM EDT active Methylph enidate HCl ER (CD) 10 MG eCW1 ([facility]) Methylphenidate HCl ER (CD) 10 MG Methylphenidate HCl ER (CD ) 10 MG 07/01/2021 12:00:00 AM EDT active Methylph enidate HCl ER (CD) 10 MG eCW1 ([facility]) 200 mg 06/25/2021 12:00:00 AM EDT capsule [...] active Nitrofurantoin Monohyd Macro 100 MG eCW1 ([facility]) NITROFURANTOIN, MACROCRYSTALS 25 MG / Ni trofurantoin, Monohydrate 75 MG Oral Capsule Nitrofurantoin Monohyd Macro 100 MG Nitrofurantoin Monohyd Macro 100 MG 06/24/2021 12:00:00 AM EDT active Nitrofurantoin Monohyd Macro 100 MG eCW1 ([facility]) NITROFURANTOIN, MACROCRYSTALS 25 MG / Ni trofurantoin, [...] active Nitrofurantoin Monohyd Macro 100 MG eCW1 ([facility]) NITROFURANTOIN, MACROCRYSTALS 25 MG / Ni trofurantoin, Monohydrate 75 MG Oral Capsule Nitrofurantoin Monohyd Macro 100 MG Nitrofurantoin Monohyd Macro 100 MG 06/24/2021 12:00:00 AM EDT active Nitrofurantoin Monohyd Macro 100 MG eCW1 ([facility]) NITROFURANTOIN, MACROCRYSTALS 25 MG / Ni trofurantoin, Monohydrate 75 MG Oral Capsule Nitrofurantoin Monohyd Macro 100 MG Nitrofurantoin Monohyd Macro 100 MG 06/24/2021 12:00:00 AM EDT active Nitrofurantoin Monohyd Macro 100 MG eCW1 ([facility]) 125 mcg 06/23/2021 12:00:00 AM EDT tablet [...] EDT active LORazepa m 0.5 MG eCW1 ([facility]) Lorazepam 0.5 MG Oral Tablet LORazepam 0.5 MG LORazepam 0.5 MG 06/22/2021 12:00:00 AM EDT active LORazepa m 0.5 MG eCW1 ([facility]) pregabalin 200 MG Oral Capsule [Lyrica] Lyrica 200 MG Lyrica 200 MG 06/22/2021 12:00:00 AM EDT 1.0 {capsule} active L yrica 200 MG eCW1 ([facility]) pregabalin 200 MG Oral Capsule [Lyrica] Lyrica 200 MG Lyrica 200 MG 06/22/2021 12:00:00 AM EDT 1.0 {capsule} active L yrica 200 MG eCW1 ([facility]) pregabalin 200 MG Oral Capsule [Lyrica] Lyrica 200 MG Lyrica 200 MG 06/22/2021 12:00:00 AM EDT 1.0 {capsule} active L yrica 200 MG eCW1 ([facility]) pregabalin 200 MG Oral Capsule [Lyrica] Lyrica 200 MG Lyrica 200 MG 06/22/2021 12:00:00 AM EDT 1.0 {capsule} active L yrica 200 MG eCW1 ([facility]) pregabalin 200 MG Oral Capsule [Lyrica] Lyrica 200 MG Lyrica 200 MG 06/22/2021 12:00:00 AM EDT 1.0 {capsule} active L yrica 200 MG eCW1 ([facility]) 0.5 mg 06/22/2021 12:00:00 AM EDT tablet 60 TAKE ONE TABLET BY MOUTH TWICE A DAY NEEDED MAXIMUM DAILY DOSE = 2 TAKE ONE TABLET BY MOUTH TWICE A DAY NEEDED MAXIMUM DAILY DOSE = 2 SOLD: 06/22/2021 [facility] Lorazepam 0.5 MG Oral Tablet LORazepam 0.5 MG LORazepam 0.5 MG 06/22/2021 12:00:00 AM EDT active LORazepa m 0.5 MG eCW1 ([facility]) Lorazepam 0.5 MG Oral Tablet LORazepam 0.5 MG LORazepam 0.5 MG 06/22/2021 12:00:00 AM EDT active LORazepa m 0.5 MG eCW1 ([facility]) 12-3 mg 06/19/2021 12:00:00 AM EDT film 56 PLACE ONE-HALF FILM UNDER THE TONGUE FOUR TIMES A DAY MAXIMUM DAILY DOSE = [address] ONE-HALF FILM UNDER THE TONGUE FOUR TIMES A DAY MAXIMUM DAILY DOSE = 2 FILMS SOLD: 06/21/2021 [facility] Methylphenidate HCl ER (CD) 10 MG Methylphenidate HCl ER (CD ) 10 MG 06/04/2021 12:00:00 AM EDT active Methylph enidate HCl ER (CD) 10 MG eCW1 ([facility]) Methylphenidate HCl ER (CD) 10 MG Methylphenidate HCl ER (CD ) 10 MG 06/04/2021 12:00:00 AM EDT active Methylph enidate HCl ER (CD) 10 MG eCW1 ([facility]) 10 mg 06/04/2021 12:00:00 AM EDT capsule, ER biphasic 30 -70 30 TAKE ONE CAPSULE BY MOUTH EVERY MORNING MAXIMUM DAILY DOSE = 1 CAPSULE TAKE ONE CAPSULE BY MOUTH EVERY MORNING MAXIMUM DAILY DOSE = 1 CAPSULE SOLD: 06/04/2021 [facility] Methylphenidate HCl ER (CD) 10 MG Methylphenidate HCl ER (CD ) 10 MG 06/04/2021 12:00:00 AM EDT active Methylph enidate HCl ER (CD) 10 MG eCW1 ([facility]) 20.25 mg/1.25 gram (1.62 %) 06/01/2021 12:00:00 AM EDT gel in metered-dose pump 150 APPLY 4 PUMPS TO THE SKIN ONCE D AILY MAXIMUM DAILY DOSE = 4 PUMPS APPLY 4 PUMPS TO THE SKIN ONCE DAILY MAXIMUM DAILY DOSE = 4 PUMPS SOLD: 06/02/2021 [facility] 2500 MG Testosterone 0.0162 MG/MG Topica l Gel [Androgel] AndroGel 40.5 MG/2.5GM (1.62%) AndroGel 40.5 MG/2.5GM (1.62%) 06/01/2021 12:00:00 AM EDT active AndroGel 40.5 MG/2.5GM (1.62%) e CW1 ([facility]) 2500 MG Testosterone 0.0162 MG/MG Topica l Gel [Androgel] AndroGel 40.5 MG/2.5GM (1.62%) AndroGel 40.5 MG/2.5GM (1.62%) 06/01/2021 12:00:00 AM EDT active AndroGel 40.5 MG/2.5GM (1.62%) e CW1 ([facility]) 2500 MG Testosterone 0.0162 MG/MG Topica l Gel [Androgel] AndroGel 40.5 MG/2.5GM (1.62%) AndroGel 40.5 MG/2.5GM (1.62%) 06/01/2021 12:00:00 AM EDT active AndroGel 40.5 MG/2.5GM (1.62%) e CW1 ([facility]) 2500 MG Testosterone 0.0162 MG/MG Topica l Gel [Androgel] AndroGel 40.5 MG/2.5GM (1.62%) AndroGel 40.5 MG/2.5GM (1.62%) 06/01/2021 12:00:00 AM EDT active eCW1 ([facility]) 2500 MG Testosterone 0.0162 MG/MG Topica l Gel [Androgel] AndroGel 40.5 MG/2.5GM (1.62%) AndroGel 40.5 MG/2.5GM (1.62%) 06/01/2021 12:00:00 AM EDT active AndroGel 40.5 MG/2.5GM (1.62%) e CW1 ([facility]) 2500 MG Testosterone 0.0162 MG/MG Topica l Gel [Androgel] AndroGel 40.5 MG/2.5GM (1.62%) AndroGel 40.5 MG/2.5GM (1.62%) 06/01/2021 12:00:00 AM EDT active AndroGel 40.5 MG/2.5GM (1.62%) e CW1 ([facility]) 200 mg 05/26/2021 12:00:00 AM EDT capsule [...] 12:00:00 AM EDT 1.0 {tablet_as_needed} active eCW1 ([facility]) sildenafil 50 MG Oral Tablet [Viagra] Viagra 50 MG Viagra 50 MG 05/05/2021 12:00:00 AM EDT 1.0 {tablet_as_needed} active Viagra 50 MG eCW1 ([facility]) sildenafil 50 MG Oral Tablet [Viagra] Viagra 50 MG Viagra 50 MG 05/05/2021 12:00:00 AM EDT 1.0 {tablet_as_needed} active Viagra 50 MG eCW1 ([facility]) sildenafil 50 MG Oral Tablet [Viagra] Viagra 50 MG Viagra 50 MG 05/05/2021 12:00:00 AM EDT 1.0 {tablet_as_needed} active Viagra 50 MG eCW1 ([facility]) sildenafil 50 MG Oral Tablet [Viagra] Viagra 50 MG Viagra 50 MG 05/05/2021 12:00:00 AM EDT 1.0 {tablet_as_needed} active Viagra 50 MG eCW1 ([facility]) sildenafil 50 MG Oral Tablet [Viagra] Viagra 50 MG Viagra 50 MG 05/05/2021 12:00:00 AM EDT 1.0 {tablet_as_needed} active Viagra 50 MG eCW1 ([facility]) sildenafil 50 MG Oral Tablet [Viagra] Viagra 50 MG Viagra 50 MG 05/05/2021 12:00:00 AM EDT 1.0 {tablet_as_needed} active Viagra 50 MG eCW1 ([facility]) sildenafil 50 MG Oral Tablet [Viagra] Viagra 50 MG Viagra 50 MG 05/05/2021 12:00:00 AM EDT 1.0 {tablet_as_needed} active Viagra 50 MG eCW1 ([facility]) sildenafil 50 MG Oral Tablet [Viagra] Viagra 50 MG Viagra 50 MG 05/05/2021 12:00:00 AM EDT 1.0 {tablet_as_needed} active Viagra 50 MG eCW1 ([facility]) Methylphenidate HCl ER (CD) 10 MG Methylphenidate HCl ER (CD ) 10 MG 05/05/2021 12:00:00 AM EDT active Methylph enidate HCl ER (CD) 10 MG eCW1 ([facility]) Methylphenidate HCl ER (CD) 10 MG Methylphenidate HCl ER (CD ) 10 MG 05/05/2021 12:00:00 AM EDT active Methylph enidate HCl ER (CD) 10 MG eCW1 ([facility]) 10 mg 05/05/2021 12:00:00 AM EDT capsule, ER biphasic 30 -70 30 TAKE ONE CAPSULE BY MOUTH EVERY MORNING MAXIMUM DAILY DOSE = 1 TAKE ONE CAPSULE BY MOUTH EVERY MORNING MAXIMUM DAILY DOSE = 1 SOLD: 05/05/2021 [facility] sildenafil 50 MG Oral Tablet [Viagra] Viagra 50 MG Viagra 50 MG 05/05/2021 12:00:00 AM EDT 1.0 {tablet_as_needed} active Viagra 50 MG eCW1 ([facility]) Methylphenidate HCl ER (CD) 10 MG Methylphenidate HCl ER (CD ) 10 MG 05/05/2021 12:00:00 AM EDT active Methylph enidate HCl ER (CD) 10 MG eCW1 ([facility]) sildenafil 50 MG Oral Tablet [Viagra] Viagra 50 MG Viagra 50 MG 05/05/2021 12:00:00 AM EDT 1.0 {tablet_as_needed} active Viagra 50 MG eCW1 ([facility]) sildenafil 50 MG Oral Tablet [Viagra] Viagra 50 MG Viagra 50 MG 05/05/2021 12:00:00 AM EDT 1.0 {tablet_as_needed} active Viagra 50 MG eCW1 ([facility]) sildenafil 50 MG Oral Tablet [Viagra] Viagra 50 MG Viagra 50 MG 05/05/2021 12:00:00 AM EDT 1.0 {tablet_as_needed} active Viagra 50 MG eCW1 ([facility]) Methylphenidate HCl ER (CD) 10 MG Methylphenidate HCl ER (CD ) 10 MG 05/05/2021 12:00:00 AM EDT active Methylph enidate HCl ER (CD) 10 MG eCW1 ([facility]) Methylphenidate HCl ER (CD) 10 MG Methylphenidate HCl ER (CD ) 10 MG 05/05/2021 12:00:00 AM EDT active Methylph enidate HCl ER (CD) 10 MG eCW1 ([facility]) Methylphenidate HCl ER (CD) 10 MG Methylphenidate HCl ER (CD ) 10 MG 05/05/2021 12:00:00 AM EDT active e CW1 ([facility]) sildenafil 50 MG Oral Tablet [Viagra] Viagra 50 MG Viagra 50 MG 05/05/2021 12:00:00 AM EDT 1.0 {tablet_as_needed} active Viagra 50 MG eCW1 ([facility]) Methylphenidate HCl ER (CD) 10 MG Methylphenidate HCl ER (CD ) 10 MG 05/05/2021 12:00:00 AM EDT active Methylph enidate HCl ER (CD) 10 MG eCW1 ([facility]) Methylphenidate HCl ER (CD) 10 MG Methylphenidate HCl ER (CD ) 10 MG 05/05/2021 12:00:00 AM EDT active Methylph enidate HCl ER (CD) 10 MG eCW1 ([facility]) sildenafil 50 MG Oral Tablet [Viagra] Viagra 50 MG Viagra 50 MG 05/05/2021 12:00:00 AM EDT 1.0 {tablet_as_needed} active Viagra 50 MG eCW1 ([facility]) Methylphenidate HCl ER (CD) 10 MG Methylphenidate HCl ER (CD ) 10 MG 04/28/2021 12:00:00 AM EDT active Methylph enidate HCl ER (CD) 10 MG eCW1 ([facility]) 200 mg 04/24/2021 12:00:00 AM EDT capsule [...] active Met hylphenidate HCl 5 MG eCW1 ([facility]) Methylphenidate Hydrochloride 5 MG Oral Tablet Methylp henidate HCl 5 MG Methylphenidate HCl 5 MG 04/20/2021 12:00:00 AM EDT 1.0 {tablet_on_an_empty_stomach} active Met hylphenidate HCl 5 MG eCW1 ([facility]) Methylphenidate Hydrochloride 5 MG Oral Tablet Methylp henidate HCl 5 MG Methylphenidate HCl 5 MG 04/20/2021 12:00:00 AM EDT 1.0 {tablet_on_an_empty_stomach} active Met hylphenidate HCl 5 MG eCW1 ([facility]) 5 mg 04/20/2021 12:00:00 AM EDT tablet [...] DAILY DOSE = 1 TABLET SOLD: 04/17/2021 [facility] 20.25 mg/1.25 gram (1.62 %) 04/11/2021 12:00:00 AM EDT gel in metered-dose pump 150 APPLY 4 PUMPS ONCE A DAY MAXIMUM DAILY DOSE = 4 PUMPS APPLY 4 PUMPS ONCE A DAY MAXIMUM DAILY DOSE = 4 PUMPS SOLD: 04/17/2021 [facility] 0.5 mg 03/31/2021 12:00:00 AM EDT tablet 60 TAKE ONE TABLET BY MOUTH TWICE A DAY NEEDED MAXIMUM DAILY DOSE = 2 TABLETS TAKE ONE TABLET BY MOUTH TWICE A DAY NEEDED MAXIMUM DAILY DOSE = 2 TABLETS SOLD: 03/31/2021 [facility] 200 mg 2021 12:00:00 AM EDT capsule 60 TAKE ONE CAPSULE BY MOUTH TWICE A DAY MAXIMUM DAILY DOSE = 2 CAPSULES TAKE ONE CAPSULE BY MOUTH TWICE A DAY MAXIMUM DAILY DOSE = 2 CAPSULES SOLD: 2021 [facility] 12-3 mg 03/19/2021 12:00:00 AM EDT film 56 PLACE ONE-HALF FILM UNDER THE TONGUE FOUR TIMES A DAY MAXIMUM DAILY DOSE = [address] ONE-HALF FILM UNDER THE TONGUE FOUR TIMES A DAY MAXIMUM DAILY DOSE = 2 FILMS SOLD: 03/23/2021 [facility] 10 mg 03/13/2021 12:00:00 AM EDT capsule, ER biphasic 30 -70 30 TAKE ONE CAPSULE BY MOUTH EVERY MORNING MAXIMUM DAILY DOSE = 1 CAP TAKE ONE CAPSULE BY MOUTH EVERY MORNING MAXIMUM DAILY DOSE = 1 CAP SOLD: 03/13/2021 [facility] Methylphenidate HCl ER (CD) 10 MG Methylphenidate HCl ER (CD ) 10 MG 03/13/2021 12:00:00 AM EDT active Methylph enidate HCl ER (CD) 10 MG eCW1 ([facility]) Methylphenidate HCl ER (CD) 10 MG Methylphenidate HCl ER (CD ) 10 MG 03/13/2021 12:00:00 AM EDT active e CW1 ([facility]) Methylphenidate HCl ER (CD) 10 MG Methylphenidate HCl ER (CD ) 10 MG 03/13/2021 12:00:00 AM EDT active Methylph enidate HCl ER (CD) 10 MG eCW1 ([facility]) Methylphenidate HCl ER (CD) 10 MG Methylphenidate HCl ER (CD ) 10 MG 03/13/2021 12:00:00 AM EDT active Methylph enidate HCl ER (CD) 10 MG eCW1 ([facility]) 5 mg 03/06/2021 12:00:00 AM EDT tablet 60 TAKE ONE TABLET BY MOUTH TWICE A DAY ON AN EMPTY STOMACH MAXIMUM DAILY DOSE = 2 TABLETS TAKE ONE TABLET BY MOUTH TWICE A DAY ON AN EMPTY STOMACH MAXIMUM DAILY DOSE = 2 TABLETS SOLD: 03/06/2021 [facility] Methylphenidate Hydrochloride 5 MG Oral Tablet Methylp henidate HCl 5 MG Methylphenidate HCl 5 MG 03/03/2021 12:00:00 AM EDT 1.0 {tablet_on_an_empty_stomach} active Met hylphenidate HCl 5 MG eCW1 ([facility]) Eszopiclone 2 MG Oral Tablet ESZOPICLONE 02/27/2021 12:00:00 AM EDT ta blet 30 TAKE ONE TABLET BY MOUTH IMMEDIATELY BEFORE BEDTIME - MAXIMUM DAILY DOSE = 1 TABLET TAKE ONE TABLET BY MOUTH IMMEDIATELY BEF ORE BEDTIME - MAXIMUM DAILY DOSE = 1 TABLET SOLD: 03/01/2021 [facility] 20.25 mg/1.25 gram (1.62 %) 02/24/2021 12:00:00 AM EDT gel in metered-dose pump 150 APPLY 4 PUMPS TO THE SKIN ONCE D AILY MAXIMUM DAILY DOSE = 4 PUMPS APPLY 4 PUMPS TO THE SKIN ONCE DAILY MAXIMUM DAILY DOSE = 4 PUMPS SOLD: 03/01/2021 [facility] 500 mg 02/21/2021 12:00:00 AM EDT tablet,delayed release (DR/EC) 180 TAKE ONE TABLET BY MOUTH ONCE DAILY FOR 7 DAYS THEN TAKE ONE TABLET TWICE A DAY TAKE ONE TABLET BY MOUTH ONCE DAILY FOR 7 DAYS THEN TAKE ONE TABLET TWICE A DAY SOLD: 02/21/2021 [facility] 12-3 mg 02/19/2021 12:00:00 AM EDT [...] {tablet} active S ulfasalazine 500 MG eCW1 ([facility]) Sulfasalazine 500 MG Delayed Release Oral Tablet Sulfasalazi ne 500 MG 02/17/2021 12:00:00 AM EDT 1.0 {tablet} active S ulfasalazine 500 MG eCW1 ([facility]) Sulfasalazine 500 MG Delayed Release Oral Tablet sulfa SALAzine 500 MG sulfaSALAzine 500 MG 02/17/2021 12:00:00 AM EDT 1.0 {tablet} active sulfaSALAzine 500 MG eCW1 ([facility]) Sulfasalazine 500 MG Delayed Release Oral Tablet sulfa SALAzine 500 MG sulfaSALAzine 500 MG 02/17/2021 12:00:00 AM EDT 1.0 {tablet} active sulfaSALAzine 500 MG eCW1 ([facility]) Sulfasalazine 500 MG Delayed Release Oral Tablet Sulfasalazi ne 500 MG 02/17/2021 12:00:00 AM EDT 1.0 {tablet} active S ulfasalazine 500 MG eCW1 ([facility]) Sulfasalazine 500 MG Delayed Release Oral Tablet sulfa SALAzine 500 MG sulfaSALAzine 500 MG 02/17/2021 12:00:00 AM EDT 1.0 {tablet} active sulfaSALAzine 500 MG eCW1 ([facility]) Sulfasalazine 500 MG Delayed Release Oral Tablet sulfa SALAzine 500 MG sulfaSALAzine 500 MG 02/17/2021 12:00:00 AM EDT 1.0 {tablet} active sulfaSALAzine 500 MG eCW1 ([facility]) Sulfasalazine 500 MG Delayed Release Oral Tablet sulfa SALAzine 500 MG sulfaSALAzine 500 MG 02/17/2021 12:00:00 AM EDT 1.0 {tablet} active sulfaSALAzine 500 MG eCW1 ([facility]) Sulfasalazine 500 MG Delayed Release Oral Tablet sulfa SALAzine 500 MG sulfaSALAzine 500 MG 02/17/2021 12:00:00 AM EDT 1.0 {tablet} active sulfaSALAzine 500 MG eCW1 ([facility]) Sulfasalazine 500 MG Delayed Release Oral Tablet sulfa SALAzine 500 MG sulfaSALAzine 500 MG 02/17/2021 12:00:00 AM EDT 1.0 {tablet} active sulfaSALAzine 500 MG eCW1 ([facility]) Sulfasalazine 500 MG Delayed Release Oral Tablet sulfa SALAzine 500 MG sulfaSALAzine 500 MG 02/17/2021 12:00:00 AM EDT 1.0 {tablet} active sulfaSALAzine 500 MG eCW1 ([facility]) Sulfasalazine 500 MG Delayed Release Oral Tablet sulfa SALAzine 500 MG sulfaSALAzine 500 MG 02/17/2021 12:00:00 AM EDT 1.0 {tablet} active eCW1 ([facility]) Sulfasalazine 500 MG Delayed Release Oral Tablet sulfa SALAzine 500 MG sulfaSALAzine 500 MG 02/17/2021 12:00:00 AM EDT 1.0 {tablet} active sulfaSALAzine 500 MG eCW1 ([facility]) Sulfasalazine 500 MG Delayed Release Oral Tablet sulfa SALAzine 500 MG sulfaSALAzine 500 MG 02/17/2021 12:00:00 AM EDT 1.0 {tablet} active sulfaSALAzine 500 MG eCW1 ([facility]) Sulfasalazine 500 MG Delayed Release Oral Tablet Sulfasalazi ne 500 MG 02/17/2021 12:00:00 AM EDT 1.0 {tablet} active S ulfasalazine 500 MG eCW1 ([facility]) Sulfasalazine 500 MG Delayed Release Oral Tablet sulfa SALAzine 500 MG sulfaSALAzine 500 MG 02/17/2021 12:00:00 AM EDT 1.0 {tablet} active sulfaSALAzine 500 MG eCW1 ([facility]) Sulfasalazine 500 MG Delayed Release Oral Tablet Sulfasalazi ne 500 MG 02/17/2021 12:00:00 AM EDT 1.0 {tablet} active eCW1 ([facility]) Sulfasalazine 500 MG Delayed Release Oral Tablet Sulfasalazi ne 500 MG 02/17/2021 12:00:00 AM EDT 1.0 {tablet} active S ulfasalazine 500 MG eCW1 ([facility]) Sulfasalazine 500 MG Delayed Release Oral Tablet sulfa SALAzine 500 MG sulfaSALAzine 500 MG 02/17/2021 12:00:00 AM EDT 1.0 {tablet} active sulfaSALAzine 500 MG eCW1 ([facility]) Sulfasalazine 500 MG Delayed Release Oral Tablet Sulfasalazi ne 500 MG 02/17/2021 12:00:00 AM EDT 1.0 {tablet} active S ulfasalazine 500 MG eCW1 ([facility]) Sulfasalazine 500 MG Delayed Release Oral Tablet sulfa SALAzine 500 MG sulfaSALAzine 500 MG 02/17/2021 12:00:00 AM EDT 1.0 {tablet} active sulfaSALAzine 500 MG eCW1 ([facility]) Sulfasalazine 500 MG Delayed Release Oral Tablet sulfa SALAzine 500 MG sulfaSALAzine 500 MG 02/17/2021 12:00:00 AM EDT 1.0 {tablet} active sulfaSALAzine 500 MG eCW1 ([facility]) Sulfasalazine 500 MG Delayed Release Oral Tablet sulfa SALAzine 500 MG sulfaSALAzine 500 MG 02/17/2021 12:00:00 AM EDT 1.0 {tablet} active sulfaSALAzine 500 MG eCW1 ([facility]) Sulfasalazine 500 MG Delayed Release Oral Tablet Sulfasalazi ne 500 MG 02/17/2021 12:00:00 AM EDT 1.0 {tablet} active S ulfasalazine 500 MG eCW1 ([facility]) Sulfasalazine 500 MG Delayed Release Oral Tablet sulfa SALAzine 500 MG sulfaSALAzine 500 MG 02/17/2021 12:00:00 AM EDT 1.0 {tablet} active sulfaSALAzine 500 MG eCW1 ([facility]) Sulfasalazine 500 MG Delayed Release Oral Tablet sulfa SALAzine 500 MG sulfaSALAzine 500 MG 02/17/2021 12:00:00 AM EDT 1.0 {tablet} active sulfaSALAzine 500 MG eCW1 ([facility]) Sulfasalazine 500 MG Delayed Release Oral Tablet sulfa SALAzine 500 MG sulfaSALAzine 500 MG 02/17/2021 12:00:00 AM EDT 1.0 {tablet} active sulfaSALAzine 500 MG eCW1 ([facility]) Sulfasalazine 500 MG Delayed Release Oral Tablet Sulfasalazi ne 500 MG 02/17/2021 12:00:00 AM EDT 1.0 {tablet} active S ulfasalazine 500 MG eCW1 ([facility]) Sulfasalazine 500 MG Delayed Release Oral Tablet sulfa SALAzine 500 MG sulfaSALAzine 500 MG 02/17/2021 12:00:00 AM EDT 1.0 {tablet} active sulfaSALAzine 500 MG eCW1 ([facility]) Sulfasalazine 500 MG Delayed Release Oral Tablet sulfa SALAzine 500 MG sulfaSALAzine 500 MG 02/17/2021 12:00:00 AM EDT 1.0 {tablet} active sulfaSALAzine 500 MG eCW1 ([facility]) Methylphenidate Hydrochloride 5 MG Oral Tablet Methylp henidate HCl 5 MG Methylphenidate HCl 5 MG 02/05/2021 12:00:00 AM EDT 1.0 {tablet_on_an_empty_stomach} active Met hylphenidate HCl 5 MG eCW1 ([facility]) Methylphenidate Hydrochloride 5 MG Oral Tablet Methylp henidate HCl 5 MG Methylphenidate HCl 5 MG 02/05/2021 12:00:00 AM EDT 1.0 {tablet_on_an_empty_stomach} active Met hylphenidate HCl 5 MG eCW1 ([facility]) Methylphenidate Hydrochloride 5 MG Oral Tablet Methylp henidate HCl 5 MG Methylphenidate HCl 5 MG 02/05/2021 12:00:00 AM EDT 1.0 {tablet_on_an_empty_stomach} active Met hylphenidate HCl 5 MG eCW1 ([facility]) 5 mg 02/05/2021 12:00:00 AM EDT tablet 60 TAKE ONE TABLET BY MOUTH TWICE A DAY ON AN EMPTY STOMACH MAXIMUM DAILY DOSE = 2 TAKE ONE TABLET BY MOUTH TWICE A DAY ON AN EMPTY STOMACH MAXIMUM DAILY DOSE = 2 SOLD: 02/05/2021 [facility] Methylphenidate Hydrochloride 5 MG Oral Tablet Methylp henidate HCl 5 MG Methylphenidate HCl 5 MG 02/05/2021 12:00:00 AM EDT 1.0 {tablet_on_an_empty_stomach} active Met hylphenidate HCl 5 MG eCW1 ([facility]) Methylphenidate Hydrochloride 5 MG Oral Tablet Methylp henidate HCl 5 MG Methylphenidate HCl 5 MG 02/05/2021 12:00:00 AM EDT 1.0 {tablet_on_an_empty_stomach} active Met hylphenidate HCl 5 MG eCW1 ([facility]) Methylphenidate Hydrochloride 5 MG Oral Tablet Methylp henidate HCl 5 MG Methylphenidate HCl 5 MG 02/05/2021 12:00:00 AM EDT 1.0 {tablet_on_an_empty_stomach} active Met hylphenidate HCl 5 MG eCW1 ([facility]) Eszopiclone 2 MG Oral Tablet ESZOPICLONE 01/28/2021 [...] DAILY DOSE = 2 CAPSULES SOLD: 01/21/2021 [facility] 12-3 mg 01/20/2021 12:00:00 AM EDT film 56 PLACE ONE-HALF FILM UNDER THE TONGUE FOUR TIMES A DAY MAXIMUM DAILY DOSE = [address] ONE-HALF FILM UNDER THE TONGUE FOUR TIMES A DAY MAXIMUM DAILY DOSE = 2 FILMS SOLD: 01/20/2021 [facility] Methylphenidate Hydrochloride 5 MG Oral Tablet Methylp henidate HCl 5 MG Methylphenidate HCl 5 MG 01/07/2021 12:00:00 AM EST 1.0 {tablet_on_an_empty_stomach} active Met hylphenidate HCl 5 MG eCW1 ([facility]) 5 mg 01/07/2021 12:00:00 AM EST tablet 60 TAKE ONE TABLET BY MOUTH TWICE A DAY EMPTY STOMACH MAXIMUM DAILY DOSE = 2 TAKE ONE TABLET BY MOUTH TWICE A DAY EMPTY STOMACH MAXIMUM DAILY DOSE = 2 SOLD: 01/07/2021 [facility] Methylphenidate Hydrochloride 5 MG Oral Tablet Methylp henidate HCl 5 MG Methylphenidate HCl 5 MG 01/07/2021 12:00:00 AM EST 1.0 {tablet_on_an_empty_stomach} active Met hylphenidate HCl 5 MG eCW1 ([facility]) Methylphenidate Hydrochloride 5 MG Oral Tablet Methylp henidate HCl 5 MG Methylphenidate HCl 5 MG 01/07/2021 12:00:00 AM EST 1.0 {tablet_on_an_empty_stomach} active Met hylphenidate HCl 5 MG eCW1 ([facility]) Methylphenidate Hydrochloride 5 MG Oral Tablet Methylp henidate HCl 5 MG Methylphenidate HCl 5 MG 01/07/2021 12:00:00 AM EST 1.0 {tablet_on_an_empty_stomach} active Met hylphenidate HCl 5 MG eCW1 ([facility]) 125 mcg 01/01/2021 12:00:00 AM EST tablet [...] active Met hylphenidate HCl 5 MG eCW1 ([facility]) Methylphenidate Hydrochloride 5 MG Oral Tablet Methylp henidate HCl 5 MG Methylphenidate HCl 5 MG 12/12/2020 12:00:00 AM EST 1.0 {tablet_on_an_empty_stomach} active Met hylphenidate HCl 5 MG eCW1 ([facility]) Methylphenidate Hydrochloride 5 MG Oral Tablet Methylp henidate HCl 5 MG Methylphenidate HCl 5 MG 12/12/2020 12:00:00 AM EST 1.0 {tablet_on_an_empty_stomach} active Met hylphenidate HCl 5 MG eCW1 ([facility]) 5 mg 12/12/2020 12:00:00 AM EST tablet [...] active Met hylphenidate HCl 5 MG eCW1 ([facility]) Methylphenidate Hydrochloride 5 MG Oral Tablet Methylp henidate HCl 5 MG Methylphenidate HCl 5 MG 12/12/2020 12:00:00 AM EST 1.0 {tablet_on_an_empty_stomach} active Met hylphenidate HCl 5 MG eCW1 ([facility]) Methylphenidate Hydrochloride 5 MG Oral Tablet Methylp henidate HCl 5 MG Methylphenidate HCl 5 MG 12/12/2020 12:00:00 AM EST 1.0 {tablet_on_an_empty_stomach} active Met hylphenidate HCl 5 MG eCW1 ([facility]) Methylphenidate Hydrochloride 5 MG Oral Tablet Methylp henidate HCl 5 MG Methylphenidate HCl 5 MG 12/12/2020 12:00:00 AM EST 1.0 {tablet_on_an_empty_stomach} active Met hylphenidate HCl 5 MG eCW1 ([facility]) 8 mg 12/09/2020 12:00:00 AM EST tablet, [...] AM EST active Voltaren 1 % eCW1 ([facility]) Diclofenac Sodium 0.01 MG/MG Topical Gel [Voltaren] Voltaren 1 % Voltaren 1 % 12/02/2020 12:00:00 AM EST active Voltaren 1 % eCW1 ([facility]) Voltaren 1 % UNK 12/02/2020 12:00:00 AM EST activ e Voltaren 1 % eCW1 ([facility]) Diclofenac Sodium 0.01 MG/MG Topical Gel [Voltaren] Voltaren 1 % Voltaren 1 % 12/02/2020 12:00:00 AM EST active Voltaren 1 % eCW1 ([facility]) Diclofenac Sodium 0.01 MG/MG Topical Gel [Voltaren] Voltaren 1 % Voltaren 1 % 12/02/2020 12:00:00 AM EST active Voltaren 1 % eCW1 ([facility]) Diclofenac Sodium 0.01 MG/MG Topical Gel [Voltaren] Voltaren 1 % Voltaren 1 % 12/02/2020 12:00:00 AM EST active Voltaren 1 % eCW1 ([facility]) Diclofenac Sodium 0.01 MG/MG Topical Gel [Voltaren] Voltaren 1 % Voltaren 1 % 12/02/2020 12:00:00 AM EST active eCW1 ([facility]) Diclofenac Sodium 0.01 MG/MG Topical Gel [Voltaren] Voltaren 1 % Voltaren 1 % 12/02/2020 12:00:00 AM EST active Voltaren 1 % eCW1 ([facility]) Diclofenac Sodium 0.01 MG/MG Topical Gel [Voltaren] Voltaren 1 % Voltaren 1 % 12/02/2020 12:00:00 AM EST active Voltaren 1 % eCW1 ([facility]) Diclofenac Sodium 0.01 MG/MG Topical Gel [Voltaren] Voltaren 1 % Voltaren 1 % 12/02/2020 12:00:00 AM EST active Voltaren 1 % eCW1 ([facility]) Voltaren 1 % UNK 12/02/2020 12:00:00 AM EST activ e Voltaren 1 % eCW1 ([facility]) Diclofenac Sodium 0.01 MG/MG Topical Gel [Voltaren] Voltaren 1 % Voltaren 1 % 12/02/2020 12:00:00 AM EST active Voltaren 1 % eCW1 ([facility]) Diclofenac Sodium 0.01 MG/MG Topical Gel [Voltaren] Voltaren 1 % Voltaren 1 % 12/02/2020 12:00:00 AM EST active Voltaren 1 % eCW1 ([facility]) Diclofenac Sodium 0.01 MG/MG Topical Gel [Voltaren] Voltaren 1 % Voltaren 1 % 12/02/2020 12:00:00 AM EST active Voltaren 1 % eCW1 ([facility]) Diclofenac Sodium 0.01 MG/MG Topical Gel [Voltaren] Voltaren 1 % Voltaren 1 % 12/02/2020 12:00:00 AM EST active Voltaren 1 % eCW1 ([facility]) Voltaren 1 % UNK 12/02/2020 12:00:00 AM EST activ e Voltaren 1 % eCW1 ([facility]) Diclofenac Sodium 0.01 MG/MG Topical Gel [Voltaren] Voltaren 1 % Voltaren 1 % 12/02/2020 12:00:00 AM EST active Voltaren 1 % eCW1 ([facility]) Voltaren 1 % UNK 12/02/2020 12:00:00 AM EST activ e Voltaren 1 % eCW1 ([facility]) Diclofenac Sodium 0.01 MG/MG Topical Gel [Voltaren] Voltaren 1 % Voltaren 1 % 12/02/2020 12:00:00 AM EST active Voltaren 1 % eCW1 ([facility]) Diclofenac Sodium 0.01 MG/MG Topical Gel [Voltaren] Voltaren 1 % Voltaren 1 % 12/02/2020 12:00:00 AM EST active Voltaren 1 % eCW1 ([facility]) Voltaren 1 % UNK 12/02/2020 12:00:00 AM EST activ e Voltaren 1 % eCW1 ([facility]) Diclofenac Sodium 0.01 MG/MG Topical Gel [Voltaren] Voltaren 1 % Voltaren 1 % 12/02/2020 12:00:00 AM EST active Voltaren 1 % eCW1 ([facility]) Diclofenac Sodium 0.01 MG/MG Topical Gel [Voltaren] Voltaren 1 % Voltaren 1 % 12/02/2020 12:00:00 AM EST active eCW1 ([facility]) Voltaren 1 % UNK 12/02/2020 12:00:00 AM EST activ e Voltaren 1 % eCW1 ([facility]) 8-2 mg 12/02/2020 12:00:00 AM EST film 56 DISSOLVE 1/2 FILM UNDER THE TONGUE FOUR TIMES A DAY FOR PAIN MAXIMUM DAILY DOSE = 2 DISSOLVE 1/2 FILM UNDER THE TONGUE FOUR TIMES A DAY FOR PAIN MAXIMUM DAILY DOSE = 2 SOLD: 12/02/2020 [facility] Voltaren 1 % UNK 12/02/2020 12:00:00 AM EST activ e Voltaren 1 % eCW1 ([facility]) Diclofenac Sodium 0.01 MG/MG Topical Gel [Voltaren] Voltaren 1 % Voltaren 1 % 12/02/2020 12:00:00 AM EST active Voltaren 1 % eCW1 ([facility]) Diclofenac Sodium 0.01 MG/MG Topical Gel [Voltaren] Voltaren 1 % Voltaren 1 % 12/02/2020 12:00:00 AM EST active Voltaren 1 % eCW1 ([facility]) Diclofenac Sodium 0.01 MG/MG Topical Gel [Voltaren] Voltaren 1 % Voltaren 1 % 12/02/2020 12:00:00 AM EST active Voltaren 1 % eCW1 ([facility]) Diclofenac Sodium 0.01 MG/MG Topical Gel [Voltaren] Voltaren 1 % Voltaren 1 % 12/02/2020 12:00:00 AM EST active Voltaren 1 % eCW1 ([facility]) Diclofenac Sodium 0.01 MG/MG Topical Gel [Voltaren] Voltaren 1 % Voltaren 1 % 12/02/2020 12:00:00 AM EST active Voltaren 1 % eCW1 ([facility]) Diclofenac Sodium 0.01 MG/MG Topical Gel [Voltaren] Voltaren 1 % Voltaren 1 % 12/02/2020 12:00:00 AM EST active Voltaren 1 % eCW1 ([facility]) Diclofenac Sodium 0.01 MG/MG Topical Gel [Voltaren] Voltaren 1 % Voltaren 1 % 12/02/2020 12:00:00 AM EST active Voltaren 1 % eCW1 ([facility]) Diclofenac Sodium 0.01 MG/MG Topical Gel [Voltaren] Voltaren 1 % Voltaren 1 % 12/02/2020 12:00:00 AM EST active Voltaren 1 % eCW1 ([facility]) Diclofenac Sodium 0.01 MG/MG Topical Gel [Voltaren] Voltaren 1 % Voltaren 1 % 12/02/2020 12:00:00 AM EST active Voltaren 1 % eCW1 ([facility]) Diclofenac Sodium 0.01 MG/MG Topical Gel [Voltaren] Voltaren 1 % Voltaren 1 % 12/02/2020 12:00:00 AM EST active Voltaren 1 % eCW1 ([facility]) Diclofenac Sodium 0.01 MG/MG Topical Gel [Voltaren] Voltaren 1 % Voltaren 1 % 12/02/2020 12:00:00 AM EST active Voltaren 1 % eCW1 ([facility]) Diclofenac Sodium 0.01 MG/MG Topical Gel [Voltaren] Voltaren 1 % Voltaren 1 % 12/02/2020 12:00:00 AM EST active Voltaren 1 % eCW1 ([facility]) Diclofenac Sodium 0.01 MG/MG Topical Gel [Vol[facility]] Voltaren 1 % Voltaren 1 % 12/02/2020 12:00:00 AM EST active Voltaren 1 % eCW1 ([facility]) 1 % 12/02/2020 12:00:00 AM EST gel [...] AM EST active Voltaren 1 % eCW1 ([facility]) Diclofenac Sodium 0.01 MG/MG Topical Gel [Voltaren] Voltaren 1 % Voltaren 1 % 12/02/2020 12:00:00 AM EST active Voltaren 1 % eCW1 ([facility]) Diclofenac Sodium 0.01 MG/MG Topical Gel [Voltaren] Voltaren 1 % Voltaren 1 % 12/02/2020 12:00:00 AM EST active Voltaren 1 % eCW1 ([facility]) Voltaren 1 % UNK 12/02/2020 12:00:00 AM EST activ e Voltaren 1 % eCW1 ([facility]) 0.5 mg 11/27/2020 12:00:00 AM EST tablet 60 TAKE ONE TABLET BY MOUTH TWICE A DAY NEEDED MAXIMUM DAILY DOSE = 2 TAKE ONE TABLET BY MOUTH TWICE A DAY NEEDED MAXIMUM DAILY DOSE = 2 SOLD: 11/28/2020 [facility] 200 mg 11/27/2020 12:00:00 AM EST capsule 60 TAKE ONE CAPSULE BY MOUTH TWICE A DAY TAKE ONE CAPSULE BY MOUTH TWICE A DAY SOLD: 11/28/2020 [facility] Eszopiclone 2 MG Oral Tablet ESZOPICLONE 11/27/2020 12:00:00 AM EST ta blet 30 TAKE ONE TABLET BY MOUTH EVERY DAY IMMEDIATELY BEFORE BEDTIME MAXIMUM DAILY DOSE = 1 TAKE ONE TABLET BY MOUTH EVERY DAY IMMED IATELY BEFORE BEDTIME MAXIMUM DAILY DOSE = 1 SOLD: 11/28/2020 [facility] 20.25 mg/1.25 gram (1.62 %) 11/05/2020 12:00:00 AM EST gel in metered-dose pump 150 APPLY 4 PUMPS ONCE DAILY MAXIMUM DAILY DOSE = 4 PUMPS APPLY 4 PUMPS ONCE DAILY MAXIMUM DAILY DOSE = 4 PUMPS SOLD: 11/11/2020 [facility] 12-3 mg 11/04/2020 12:00:00 AM EST film 56 [address]ACE ONE HALF FILM UNDER THE TONGUE FOUR TIMES A DAY MAXIMUM DAILY DOSE = [address] ONE HALF FILM UNDER THE TONGUE FOUR TIMES A DAY MAXIMUM DAILY DOSE = 2 FILMS SOLD: 11/04/2020 [facility] Methylphenidate Hydrochloride 10 MG Oral Tablet Methyl phenidate HCl 10 MG Methylphenidate HCl 10 MG 11/03/2020 12:00:00 AM EST 1.0 {tablet} active Methylphenidate HCl 10 MG eCW1 ( [facility]) Methylphenidate Hydrochloride 10 MG Oral Tablet Methyl phenidate HCl 10 MG Methylphenidate HCl 10 MG 11/03/2020 12:00:00 AM EST 1.0 {tablet} active Methylphenidate HCl 10 MG eCW1 ( [facility]) 10 mg 11/03/2020 12:00:00 AM EST tablet 60 TAKE ONE TABLET BY MOUTH TWICE A DAY MAXIMUM DAILY DOSE = 2 TAKE ONE TABLET BY MOUTH TWICE A DAY MAX IMUM DAILY DOSE = 2 SOLD: 11/04/2020 [facility] Eszopiclone 2 MG Oral Tablet ESZOPICLONE 10/21/2020 12:00:00 AM EST ta blet 30 TAKE 1 TABLET BY MOUTH IMMEDIATELY BEFORE BEDTIME MAXIMUM DAILY DOSE = 1 TAKE 1 TABLET BY MOUTH IMMEDIATELY BEFORE BEDTIME MAXIMUM DAILY DOSE = 1 SOLD: 10/23/2020 [facility] 0.5 mg 10/21/2020 12:00:00 AM EST tablet 60 TAKE ONE TABLET BY MOUTH TWICE A DAY NEEDED MAXIMUM DAILY DOSE = 2 TAKE ONE TABLET BY MOUTH TWICE A DAY NEEDED MAXIMUM DAILY DOSE = 2 SOLD: 10/23/2020 [facility] Methylphenidate Hydrochloride 10 MG Oral Tablet Methyl phenidate HCl 10 MG Methylphenidate HCl 10 MG 10/20/2020 12:00:00 AM EST active Methylphenidate HCl 10 MG eCW1 ([facility]) Methylphenidate Hydrochloride 10 MG Oral Tablet Methyl phenidate HCl 10 MG Methylphenidate HCl 10 MG 10/20/2020 12:00:00 AM EST active Methylphenidate HCl 10 MG eCW1 ([facility]) Methylphenidate Hydrochloride 10 MG Oral Tablet Methyl phenidate HCl 10 MG Methylphenidate HCl 10 MG 10/20/2020 12:00:00 AM EST active Methylphenidate HCl 10 MG eCW1 ([facility]) 10 mg 10/20/2020 12:00:00 AM EST tablet 30 TAKE ONE-HALF TABLET BY MOUTH TWICE A DAY ON AN EMPTY STOMACH - MAXIMUM DAILY DOSE = 2 TABLETS TAKE ONE-HALF TABLET BY MOUTH TWICE A DAY ON AN EMPTY STOMACH - MAXIMUM DAILY DOSE = 2 TABLETS SOLD: 10/21/2020 [facility] Methylphenidate Hydrochloride 10 MG Oral Tablet Methyl phenidate HCl 10 MG Methylphenidate HCl 10 MG 10/20/2020 12:00:00 AM EST active Methylphenidate HCl 10 MG eCW1 ([facility]) 18 mg 10/18/2020 12:00:00 AM EST tablet extended release 24hr 3 TAKE ONE TABLET BY MOUTH EVERY MORNING MAXIMUM DAILY DOSE = 1 TABLET TAKE ONE TABLET BY MOUTH EVERY MORNING MAXIMUM DAILY DOSE = 1 TABLET SOLD: 10/18/2020 [facility] Methylphenidate HCl ER ([place]) 10 MG Methylphenidate HCl ER ([facility] ) 10 MG 10/17/2020 12:00:00 AM EST active Methylph enidate HCl ER ([place]) 10 MG eCW1 ([facility]) 12-3 mg 10/07/2020 12:00:00 AM EST film [...] active Met hylphenidate HCl 5 MG eCW1 ([facility]) 200 mg 09/30/2020 12:00:00 AM EST capsule [...] activ e Atorvastatin Calcium 20 MG eCW1 ([facility]) atorvastatin 20 MG Oral Tablet Atorvastatin Calcium 20 MG Atorvastatin Calcium 20 MG 08/01/2020 12:00:00 AM EDT 1.0 {tablet} activ e Atorvastatin Calcium 20 MG eCW1 ([facility]) 200 mg 08/01/2020 12:00:00 AM EDT capsule [...] activ e Atorvastatin Calcium 20 MG eCW1 ([facility]) atorvastatin 20 MG Oral Tablet Atorvastatin Calcium 20 MG Atorvastatin Calcium 20 MG 08/01/2020 12:00:00 AM EDT 1.0 {tablet} activ e Atorvastatin Calcium 20 MG eCW1 ([facility]) atorvastatin 20 MG Oral Tablet Atorvastatin Calcium 20 MG Atorvastatin Calcium 20 MG 08/01/2020 12:00:00 AM EDT 1.0 {tablet} activ e Atorvastatin Calcium 20 MG eCW1 ([facility]) atorvastatin 20 MG Oral Tablet Atorvastatin Calcium 20 MG Atorvastatin Calcium 20 MG 08/01/2020 12:00:00 AM EDT 1.0 {tablet} activ e Atorvastatin Calcium 20 MG eCW1 ([facility]) atorvastatin 20 MG Oral Tablet Atorvastatin Calcium 20 MG Atorvastatin Calcium 20 MG 08/01/2020 12:00:00 AM EDT 1.0 {tablet} active eCW1 ([facility]) atorvastatin 20 MG Oral Tablet Atorvastatin Calcium 20 MG Atorvastatin Calcium 20 MG 08/01/2020 12:00:00 AM EDT 1.0 {tablet} activ e Atorvastatin Calcium 20 MG eCW1 ([facility]) atorvastatin 20 MG Oral Tablet Atorvastatin Calcium 20 MG Atorvastatin Calcium 20 MG 08/01/2020 12:00:00 AM EDT 1.0 {tablet} activ e Atorvastatin Calcium 20 MG eCW1 ([facility]) 200 mg 08/01/2020 12:00:00 AM EDT capsule [...] activ e Atorvastatin Calcium 20 MG eCW1 ([facility]) atorvastatin 20 MG Oral Tablet Atorvastatin Calcium 20 MG Atorvastatin Calcium 20 MG 08/01/2020 12:00:00 AM EDT 1.0 {tablet} activ e Atorvastatin Calcium 20 MG eCW1 ([facility]) atorvastatin 20 MG Oral Tablet Atorvastatin Calcium 20 MG Atorvastatin Calcium 20 MG 08/01/2020 12:00:00 AM EDT 1.0 {tablet} activ e Atorvastatin Calcium 20 MG eCW1 ([facility]) atorvastatin 20 MG Oral Tablet Atorvastatin Calcium 20 MG Atorvastatin Calcium 20 MG 08/01/2020 12:00:00 AM EDT 1.0 {tablet} activ e Atorvastatin Calcium 20 MG eCW1 ([facility]) atorvastatin 20 MG Oral Tablet Atorvastatin Calcium 20 MG Atorvastatin Calcium 20 MG 08/01/2020 12:00:00 AM EDT 1.0 {tablet} activ e Atorvastatin Calcium 20 MG eCW1 ([facility]) atorvastatin 20 MG Oral Tablet Atorvastatin Calcium 20 MG Atorvastatin Calcium 20 MG 08/01/2020 12:00:00 AM EDT 1.0 {tablet} activ e Atorvastatin Calcium 20 MG eCW1 ([facility]) atorvastatin 20 MG Oral Tablet Atorvastatin Calcium 20 MG Atorvastatin Calcium 20 MG 08/01/2020 12:00:00 AM EDT 1.0 {tablet} activ e Atorvastatin Calcium 20 MG eCW1 ([facility]) atorvastatin 20 MG Oral Tablet Atorvastatin Calcium 20 MG Atorvastatin Calcium 20 MG 08/01/2020 12:00:00 AM EDT 1.0 {tablet} activ e Atorvastatin Calcium 20 MG eCW1 ([facility]) atorvastatin 20 MG Oral Tablet Atorvastatin Calcium 20 MG Atorvastatin Calcium 20 MG 08/01/2020 12:00:00 AM EDT 1.0 {tablet} activ e Atorvastatin Calcium 20 MG eCW1 ([facility]) atorvastatin 20 MG Oral Tablet Atorvastatin Calcium 20 MG Atorvastatin Calcium 20 MG 08/01/2020 12:00:00 AM EDT 1.0 {tablet} activ e Atorvastatin Calcium 20 MG eCW1 ([facility]) atorvastatin 20 MG Oral Tablet Atorvastatin Calcium 20 MG Atorvastatin Calcium 20 MG 08/01/2020 12:00:00 AM EDT 1.0 {tablet} activ e Atorvastatin Calcium 20 MG eCW1 ([facility]) atorvastatin 20 MG Oral Tablet Atorvastatin Calcium 20 MG Atorvastatin Calcium 20 MG 08/01/2020 12:00:00 AM EDT 1.0 {tablet} activ e Atorvastatin Calcium 20 MG eCW1 ([facility]) atorvastatin 20 MG Oral Tablet Atorvastatin Calcium 20 MG Atorvastatin Calcium 20 MG 08/01/2020 12:00:00 AM EDT 1.0 {tablet} activ e Atorvastatin Calcium 20 MG eCW1 ([facility]) atorvastatin 20 MG Oral Tablet Atorvastatin Calcium 20 MG Atorvastatin Calcium 20 MG 08/01/2020 12:00:00 AM EDT 1.0 {tablet} activ e Atorvastatin Calcium 20 MG eCW1 ([facility]) atorvastatin 20 MG Oral Tablet Atorvastatin Calcium 20 MG Atorvastatin Calcium 20 MG 08/01/2020 12:00:00 AM EDT 1.0 {tablet} activ e Atorvastatin Calcium 20 MG eCW1 ([facility]) atorvastatin 20 MG Oral Tablet ATORVASTATIN CALCIUM 08/01/2020 1 2:00:00 AM EDT tablet 90 TAKE ONE TABLET BY MOUTH EVERY D AY TAKE ONE TABLET BY MOUTH EVERY DAY SOLD: 10/31/2020 [facility] atorvastatin 20 MG Oral Tablet Atorvastatin Calcium 20 MG Atorvastatin Calcium 20 MG 08/01/2020 12:00:00 AM EDT 1.0 {tablet} activ e Atorvastatin Calcium 20 MG eCW1 ([facility]) atorvastatin 20 MG Oral Tablet Atorvastatin Calcium 20 MG Atorvastatin Calcium 20 MG 08/01/2020 12:00:00 AM EDT 1.0 {tablet} activ e Atorvastatin Calcium 20 MG eCW1 ([facility]) atorvastatin 20 MG Oral Tablet Atorvastatin Calcium 20 MG Atorvastatin Calcium 20 MG 08/01/2020 12:00:00 AM EDT 1.0 {tablet} activ e Atorvastatin Calcium 20 MG eCW1 ([facility]) atorvastatin 20 MG Oral Tablet Atorvastatin Calcium 20 MG Atorvastatin Calcium 20 MG 08/01/2020 12:00:00 AM EDT 1.0 {tablet} activ e Atorvastatin Calcium 20 MG eCW1 ([facility]) atorvastatin 20 MG Oral Tablet Atorvastatin Calcium 20 MG Atorvastatin Calcium 20 MG 08/01/2020 12:00:00 AM EDT 1.0 {tablet} activ e Atorvastatin Calcium 20 MG eCW1 ([facility]) atorvastatin 20 MG Oral Tablet Atorvastatin Calcium 20 MG Atorvastatin Calcium 20 MG 08/01/2020 12:00:00 AM EDT 1.0 {tablet} activ e Atorvastatin Calcium 20 MG eCW1 ([facility]) atorvastatin 20 MG Oral Tablet Atorvastatin Calcium 20 MG Atorvastatin Calcium 20 MG 08/01/2020 12:00:00 AM EDT 1.0 {tablet} activ e Atorvastatin Calcium 20 MG eCW1 ([facility]) atorvastatin 20 MG Oral Tablet Atorvastatin Calcium 20 MG Atorvastatin Calcium 20 MG 08/01/2020 12:00:00 AM EDT 1.0 {tablet} activ e Atorvastatin Calcium 20 MG eCW1 ([facility]) atorvastatin 20 MG Oral Tablet Atorvastatin Calcium 20 MG Atorvastatin Calcium 20 MG 08/01/2020 12:00:00 AM EDT 1.0 {tablet} active eCW1 ([facility]) atorvastatin 20 MG Oral Tablet Atorvastatin Calcium 20 MG Atorvastatin Calcium 20 MG 08/01/2020 12:00:00 AM EDT 1.0 {tablet} activ e Atorvastatin Calcium 20 MG eCW1 ([facility]) atorvastatin 20 MG Oral Tablet Atorvastatin Calcium 20 MG Atorvastatin Calcium 20 MG 08/01/2020 12:00:00 AM EDT 1.0 {tablet} activ e Atorvastatin Calcium 20 MG eCW1 ([facility]) atorvastatin 20 MG Oral Tablet ATORVASTATIN CALCIUM 08/01/2020 1 2:00:00 AM EDT tablet 90 TAKE ONE TABLET BY MOUTH EVERY D AY TAKE ONE TABLET BY MOUTH EVERY DAY SOLD: 08/02/[address] [facility] [facility] atorvastatin 20 MG Oral Tablet Atorvastatin Calcium 20 MG Atorvastatin Calcium 20 MG 08/01/2020 12:00:00 AM EDT 1.0 {tablet} activ e Atorvastatin Calcium 20 MG eCW1 ([facility]) atorvastatin 20 MG Oral Tablet Atorvastatin Calcium 20 MG Atorvastatin Calcium 20 MG 08/01/2020 12:00:00 AM EDT 1.0 {tablet} activ e Atorvastatin Calcium 20 MG eCW1 ([facility]) atorvastatin 20 MG Oral Tablet Atorvastatin Calcium 20 MG Atorvastatin Calcium 20 MG 08/01/2020 12:00:00 AM EDT 1.0 {tablet} activ e Atorvastatin Calcium 20 MG eCW1 ([facility]) atorvastatin 20 MG Oral Tablet Atorvastatin Calcium 20 MG Atorvastatin Calcium 20 MG 08/01/2020 12:00:00 AM EDT 1.0 {tablet} activ e Atorvastatin Calcium 20 MG eCW1 ([facility]) atorvastatin 20 MG Oral Tablet Atorvastatin Calcium 20 MG Atorvastatin Calcium 20 MG 08/01/2020 12:00:00 AM EDT 1.0 {tablet} activ e Atorvastatin Calcium 20 MG eCW1 ([facility]) atorvastatin 20 MG Oral Tablet Atorvastatin Calcium 20 MG Atorvastatin Calcium 20 MG 08/01/2020 12:00:00 AM EDT 1.0 {tablet} activ e Atorvastatin Calcium 20 MG eCW1 ([facility]) atorvastatin 20 MG Oral Tablet Atorvastatin Calcium 20 MG Atorvastatin Calcium 20 MG 08/01/2020 12:00:00 AM EDT 1.0 {tablet} activ e Atorvastatin Calcium 20 MG eCW1 ([facility]) atorvastatin 20 MG Oral Tablet Atorvastatin Calcium 20 MG Atorvastatin Calcium 20 MG 08/01/2020 12:00:00 AM EDT 1.0 {tablet} activ e Atorvastatin Calcium 20 MG eCW1 ([facility]) atorvastatin 20 MG Oral Tablet Atorvastatin Calcium 20 MG Atorvastatin Calcium 20 MG 08/01/2020 12:00:00 AM EDT 1.0 {tablet} activ e Atorvastatin Calcium 20 MG eCW1 ([facility]) atorvastatin 20 MG Oral Tablet Atorvastatin Calcium 20 MG Atorvastatin Calcium 20 MG 08/01/2020 12:00:00 AM EDT 1.0 {tablet} activ e Atorvastatin Calcium 20 MG eCW1 ([facility]) atorvastatin 20 MG Oral Tablet Atorvastatin Calcium 20 MG Atorvastatin Calcium 20 MG 08/01/2020 12:00:00 AM EDT 1.0 {tablet} activ e Atorvastatin Calcium 20 MG eCW1 ([facility]) atorvastatin 20 MG Oral Tablet Atorvastatin Calcium 20 MG Atorvastatin Calcium 20 MG 08/01/2020 12:00:00 AM EDT 1.0 {tablet} activ e Atorvastatin Calcium 20 MG eCW1 ([facility]) atorvastatin 20 MG Oral Tablet Atorvastatin Calcium 20 MG Atorvastatin Calcium 20 MG 08/01/2020 12:00:00 AM EDT 1.0 {tablet} activ e Atorvastatin Calcium 20 MG eCW1 ([facility]) atorvastatin 20 MG Oral Tablet Atorvastatin Calcium 20 MG Atorvastatin Calcium 20 MG 08/01/2020 12:00:00 AM EDT 1.0 {tablet} activ e Atorvastatin Calcium 20 MG eCW1 ([facility]) atorvastatin 20 MG Oral Tablet Atorvastatin Calcium 20 MG Atorvastatin Calcium 20 MG 08/01/2020 12:00:00 AM EDT 1.0 {tablet} activ e Atorvastatin Calcium 20 MG eCW1 ([facility]) atorvastatin 20 MG Oral Tablet Atorvastatin Calcium 20 MG Atorvastatin Calcium 20 MG 08/01/2020 12:00:00 AM EDT 1.0 {tablet} activ e Atorvastatin Calcium 20 MG eCW1 ([facility]) atorvastatin 20 MG Oral Tablet Atorvastatin Calcium 20 MG Atorvastatin Calcium 20 MG 08/01/2020 12:00:00 AM EDT 1.0 {tablet} activ e Atorvastatin Calcium 20 MG eCW1 ([facility]) atorvastatin 20 MG Oral Tablet Atorvastatin Calcium 20 MG Atorvastatin Calcium 20 MG 08/01/2020 12:00:00 AM EDT 1.0 {tablet} activ e Atorvastatin Calcium 20 MG eCW1 ([facility]) atorvastatin 20 MG Oral Tablet Atorvastatin Calcium 20 MG Atorvastatin Calcium 20 MG 08/01/2020 12:00:00 AM EDT 1.0 {tablet} activ e Atorvastatin Calcium 20 MG eCW1 ([facility]) atorvastatin 20 MG Oral Tablet Atorvastatin Calcium 20 MG Atorvastatin Calcium 20 MG 08/01/2020 12:00:00 AM EDT 1.0 {tablet} activ e Atorvastatin Calcium 20 MG eCW1 ([facility]) atorvastatin 20 MG Oral Tablet Atorvastatin Calcium 20 MG Atorvastatin Calcium 20 MG 08/01/2020 12:00:00 AM EDT 1.0 {tablet} activ e Atorvastatin Calcium 20 MG eCW1 ([facility]) atorvastatin 20 MG Oral Tablet Atorvastatin Calcium 20 MG Atorvastatin Calcium 20 MG 08/01/2020 12:00:00 AM EDT 1.0 {tablet} activ e Atorvastatin Calcium 20 MG eCW1 ([facility]) atorvastatin 20 MG Oral Tablet Atorvastatin Calcium 20 MG Atorvastatin Calcium 20 MG 08/01/2020 12:00:00 AM EDT 1.0 {tablet} activ e Atorvastatin Calcium 20 MG eCW1 ([facility]) atorvastatin 20 MG Oral Tablet Atorvastatin Calcium 20 MG Atorvastatin Calcium 20 MG 08/01/2020 12:00:00 AM EDT 1.0 {tablet} activ e Atorvastatin Calcium 20 MG eCW1 ([facility]) atorvastatin 20 MG Oral Tablet Atorvastatin Calcium 20 MG Atorvastatin Calcium 20 MG 08/01/2020 12:00:00 AM EDT 1.0 {tablet} activ e Atorvastatin Calcium 20 MG eCW1 ([facility]) atorvastatin 20 MG Oral Tablet Atorvastatin Calcium 20 MG Atorvastatin Calcium 20 MG 08/01/2020 12:00:00 AM EDT 1.0 {tablet} activ e Atorvastatin Calcium 20 MG eCW1 ([facility]) atorvastatin 20 MG Oral Tablet Atorvastatin Calcium 20 MG Atorvastatin Calcium 20 MG 08/01/2020 12:00:00 AM EDT 1.0 {tablet} activ e Atorvastatin Calcium 20 MG eCW1 ([facility]) atorvastatin 20 MG Oral Tablet Atorvastatin Calcium 20 MG Atorvastatin Calcium 20 MG 08/01/2020 12:00:00 AM EDT 1.0 {tablet} activ e Atorvastatin Calcium 20 MG eCW1 ([facility]) atorvastatin 20 MG Oral Tablet Atorvastatin Calcium 20 MG Atorvastatin Calcium 20 MG 08/01/2020 12:00:00 AM EDT 1.0 {tablet} activ e Atorvastatin Calcium 20 MG eCW1 ([facility]) 0.5 mg 07/25/2020 12:00:00 AM EDT tablet [...] type / Coverage type Policy ID Covered republican ID Covered republican's relationship to freeman Policy [place] Plan Information VALDO [id number] SP [id number] A [employer]() Workers Compensation [id number] Self [id number] [employer]() Workers Compensation [id number] Self [id number] [facility] Workers Compensation [id number] Self [id number] MEDICARE [id number] SP [id number] MEDICARE [id number] SP [id number] A MEDICARE A [id number] Self [id number] [place] [id number] Self [id number] [place] [id number] Self [id number] [place] [id number] Self [id number] MEDICARE A [id number] Self [id number] A [facility]-Medicare Part B [id number] ANSI-Medicare Part B [id number] ANSI-Medicare Part B [id number] ANSI-Medicare Part B [id number] ANSI-Medicare Part B [id number] ANSI-Medicare Part B [id number] ANSI-Medicare Part B [id number] ANSI-Medicare Part B [id number] ANSI-Medicare Part B [id number] ANSI-Medicare Part B [id number] ANSI-Medicare Part B [id number]-7ghh-[id number] ANSI-Medicare Part B [id number] ANSI-Medicare Part B [id number]-[id number] ANSI-Medicare Part B [id number]-[id number] ANSI-Medicare Part B [id number] [id number]-[id number] ANSI-Medicare Part B [id number]-iy3h-r39g5m967820 ANSI-Medicare Part B [id number] id6455xy-kj9p-1l3l-6f6z-1qvf24d5a4f1 ANSI-Medicare Part B [id number] [id number]-2l95-47994bv3f6s5 ANSI-Medicare Part B [id number] [id number]-0l5e-79y5-0sd3-10ar2ketr6wa ANSI-Medicare Part B [id number]-74p622c2h2s5 ANSI-Medicare Part B [id number] [id number]-rc85-7298-cra6-g4i199694733 ANSI-Medicare Part B [id number]-k33i-84a2-45r4-[id number] ANSI-Medicare Part B [id number]-[id number] ys709959-3wtv-85so-4khv-h2w7c4i48v66 ANSI-Medicare Part B [id number]-89wz-wed584ma8n6e 848u7k58-ra29-111u-10ec-bou382av3d0s ANSI-Medicare Part B [id number] xj0o5nbq-55g4-728e-4s1w-[id number] ANSI-Medicare Part B [id number]-8932-rs3c-8818317e41p9 ANSI-Medicare Part B [id number] 68c2z73z-wi31-5852-8a5i-966l282z8t7r ANSI-Medicare Part B [id number]-l0g579ovd2s6 52e37nfi-i3g5-669f-060l-r6k125tjj5q5 MEDICARE [id number] SP [id number] A ANSI-Medicare Part B [id number]-sqor-cr560hhq5831 [id number]-r159-93s8-wujz-oo739tzj8855 ANSI-Medicare Part B [id number]-bf7l-7m1h-2yv0-2a1bey5fv5uz 959s4pu0-xc9l-9z4k-2yb8-1z0dei9jn2ce ANSI-Medicare Part B [id number]-[id number]-lfs2-765h-6q40-42397s465ute ANSI-Medicare Part B [id number]-ol54-[id number] [id number]-mv80-t69s15d187f7 ANSI-Medicare Part B [id number]-s07m-nqh86z9p51wj 5211y8lq-l3z6-1316-n14l-mhl84s9y43al ANSI-Medicare Part B [id number]-k17e-6b63mda0xf50 901p3a86-8210-89y9-d99o-0n13myl7oy24 ANSI-Medicare Part B [id number]-[id number] ua57786r-26al-2zqz-293y-[id number] ANSI-Medicare Part B [id number]-7837-8102-[id number] fehql5ir-4715-7618-h191-84926jt920k9 ANSI-Medicare Part B [id number]-sv82-5214-fr0m-7v01yy3x0683 p4qnr2q2-yg04-0387-qn7r-2a63fi5n5781 ANSI-Medicare Part B [id number]-ov4w-[id number] 75i5021h-791e-66ru-uv6x-b374695370y6 ANSI-Medicare Part B [id number]-m4ii-p273t687zoot 78i97031-60v5-26aj-f3zd-a470j107lnaq ANSI-Medicare Part B [id number]-[id number] 412x5lf1-6fln-2cs2-4xdw-eg3kozs2y975 ANSI-Medicare Part B [id number] 18438330-67bl-8h19-2131-893yzwyt83w0 ANSI-Medicare Part B [id number]-[id number] 01x2k4e9-2vn5-69z4-n3x6-657688pp12rh ANSI-Medicare Part B [id number]-9o3t-s6vrv16gj493 498l7hr0-7881-5o1n-4c8a-p4cpl89vn339 ANSI-Medicare Part B [id number]-3783-[id number]-v730-93wu-9845-i345k1491u4e ANSI-Medicare Part B [id number]-b133-[id number] 6d8500z2-bdc8-96r8-c342-joau1d2r87q8 ANSI-Medicare Part B [id number]-14j8-14735u77vsv3 39a20h06-zuc7-650z-07y1-54055l01les7 ANSI-Medicare Part B [id number]-34g8-71n4-gxtma00727s5 5f0387x0-gt3l-96w3-40s3-yadfm83022o0 ANSI-Medicare Part B [id number]-n493-9496-7r53-waov7pph1087 920t71a6-k523-6314-4j06-aaqg7gpv1866 ANSI-Medicare Part B [id number]-1lhc-18221c8a28dc wepk6267-6579-530m-4fww-66967f8e38nk ANSI-Medicare Part B [id number]-q77z-[id number] e736u140-4d07-0w7x-k91b-27112x8cv3qg ANSI-Medicare Part B [id number]-h420-879g-[id number] rl02d4ve-u007-285f-4686-2x9904u1777h ANSI-Medicare Part B [id number]-7m10-281q-[id number] 1471f309-5mwi-8r97-174l-l6j8685496i0 ANSI-Medicare Part B [id number]-[id number] ky376e86-0q58-8z46-913h-096w507v540b ANSI-Medicare Part B [id number]-tbk9-08o7w03wm8e6 a0zh930y-86r6-4o39-ijd7-38n4i64jm9l0 ANSI-Medicare Part B [id number]-p6a2-2415-67kn-1d9gbxf8djg0 c0129qeo-s2l0-8066-73qx-6e0mcwj5ffh2 MEDICARE [id number] SP [id number] ANSI-Medicare Part B [id number]-4od6-4qrd-0521-48vawok09460 9hnv61oz-7nl4-0fzm-5761-79qkvxa73871 ANSI-Medicare Part B 4569v6j7-er65-772n-6666-005q85g6zq75 3165r5b7-lo23-194s-0757-224z26a7tw42 ANSI-Medicare Part B [id number] 92212324-osk6-1882-80z0-n31169c88lz4 ANSI-Medicare Part B [id number]-8477-[id number] p43u3u42-253j-498h-1205-s030puv52p54 ANSI-Medicare Part B [id number]-[id number]-[id number] 8pgob045-o581-08xb-4g3z-5895v99011p7 ANSI-Medicare Part B [id number]-6lzo-859j-803h-770rgy8c0qi4 2rz44ikh-1mip-727k-671d-599roe5f3rz5 ANSI-Medicare Part B [id number]-i701-b8f05w6r2020 r93p44r6-4966-1438-c134-d2s07e4x9832 ANSI-Medicare Part B [id number]-3ym0-9iq4-10f3w43w4382 aj301o70-3d1p-1fo4-2xr6-85z7j05r0087 ANSI-Medicare Part B [id number]-[id number] [id number]-p140-6uwf-8wd3-90s135111hg1 ANSI-Medicare Part B sty8hs2y-0115-6602-s001-3mv7q6g4h1s3 qnq7db2m-5294-7608-t819-2xj7b7m5y1c7 ANSI-Medicare Part B [id number]-710h-[id number] [id number]-548z-767f-80262g010684 ANSI-Medicare Part B [id number]-ccg5-[id number] 308u7420-2w96-970c-hug8-c3w658kdi042 ANSI-Medicare Part B [id number]-8811-1566-00y74yoj4sx0 7kw8r309-57jb-6054-1416-10n50ssv9gj1 ANSI-Medicare Part B [id number]-w2rb-220tahyq0q86 a946r035-8334-7ihw-j0ca-939xcwbs2d52 ANSI-Medicare Part B [id number]-r27d-0j50-k025-[id number] 750wa6v9-y08b-1m31-j822-d62087961h19 ANSI-Medicare Part B [id number]-33bx-j56r-[id number] 602s9t09-ppqe-95vq-v82v-p06q1t5965t4 ANSI-Medicare Part B [id number]-3k1p-7vw8-5jw3-u16rxh8p4017 256yte4l-5y4e-8xw1-3nl1-g97frt7v8055 ANSI-Medicare Part B lo1mo7a6-71tg-52ru-pj0i-h97uh463c002 xf8ss8h8-44nj-67xn-si2q-s02pr816y250 ANSI-Medicare Part B [id number] [id number]-s1082a22r6kp ANSI-Medicare Part B [id number]-4p26-3sme-393fb4aiescn t69bf0p7-836e-4b91-7frs-112ry8kvrypf ANSI-Medicare Part B [id number] ANSI-Medicare Part B [id number] MEDICARE C [id number] S [id number] A Medicaid [place] Medigap Part B [id number] ...[id number]. 3545.0 Self [id number] [place] Workers Compensation [id number]..[id number] Self [id number] Disposal Worker () Workers Compensation [id number] 2.16.840.1.991433.3. 227.99.991.3545.0 Self [id number] [facility] () Workers Compensation [id number]9.991.3545.0 Self [id number] Disposal Worker () Workers Compensation [id number] 2.16.840.1.316214.3. 227.99.991.3545.0 Self [id number] [facility] () Workers Compensation [id number]9.991.3545.0 Self [id number] Disposal Worker () Workers Compensation [id number] 2.16.840.1.110738.3. 227.99.991.3545.0 Self [id number] MEDICARE - [facility] [id number] S [id number] MEDICARE MEDICARE [id number] Self JACKIE AMBROSE JR MEDICARE [facility] [id number] SP [id number] SELF PAY UNAVAILABLE SP UNAVAILA BLE SELF PAY SP [address] [employer] [place] SP [id number] [facility] [id number] [facility] PART B C [id number] S [id number] MEDICARE C [id number] S [id number] MEDICAID UNAVAILABLE UNAVAILA BLE ANS-Medicare Part B [id number] ANSI-Medicare Part B [id number] ANSI-Medicare Part B [id number] ANSI-Medicare Part B [id number] ANSI-Medicare Part B [id number] ANSI-Medicare Part B [id number] ANSI-Medicare Part B [id number] Problems, Conditions, and Diagnoses Code Display Name Description Problem Type Effective Dates Data Source(s) F98.8 57471293 ADD (attention deficit disorder) without hyperactivity Problem 03/13/2021 12:00:00 AM EDT eCW1 ([facility]) M19.90 8853435 Inflammatory arthritis Problem 02/17/2021 12 :00:00 AM EDT eCW1 ([facility]) R53.82 35274625 Chronic fatigue Problem 12/17/2020 12:00:00 AM EST eCW1 ([facility]) Surgeries/Procedures No Information Results ID Date Data Source [id number] 06/24/2021 08:47:00 AM EDT [facility] Name Value Range Interpretation Code Description Data Tracey rce(s) Supporting Document(s) SARS-CoV-2 (COVID 19) NEGATIVE - SARS-CoV-2 (COVID19) [facility] This lab was ordered by [facility] a nd reported by [facility]. ID Date Data Source [id number] 06/24/2021 08:29:00 AM EDT [facility] Name Value Range Interpretation Code Description Data Tracey rce(s) Supporting Document(s) SARS COVID ANTIGEN NEGATIVE [facility] This lab was ordered by [facility] a nd reported by [facility]. ID Date Data Source URINE CULTURE 06/24/2021 12:00:00 AM EDT eCW1 ([facility]) Name Value Range Interpretation Code Description Data Tracey rce(s) Supporting Document(s) Laboratory studies (set) URINE CULTU RE eCW1 ([facility]) ID Date Data Source [facility] COVID AG (Point of Care) 06/24/2021 12:00:00 AM EDT eC W1 ([facility]) Name Value Range Interpretation Code Description Data Tracey rce(s) Supporting Document(s) NEGATIVE NEGATIVE [place] COVID ANTIGEN eCW1 ([facility]) ID Date Data Source RESPIRATORY PANEL 06/24/2021 12:00:00 AM EDT eCW1 ([facility]) Name Value Range Interpretation Code Description Data Tracey rce(s) Supporting Document(s) This respiratory PCR panel detects Influenza A H1, H3 and RESPIRATORY PANEL eCW1 ([facility]) ID Date Data Source UA URINALYSIS 06/24/2021 12:00:00 AM EDT eCW1 ([facility]) Name Value Range Interpretation Code Description Data Tracey rce(s) Supporting Document(s) Laboratory studies (set) UA URINALYS IS eCW1 ([facility]) ID Date Data Source ANTI-MITOCHONDRIAL ANTIBODY 12/17/2020 12:00:00 AM EST eCW1 ([facility]) Name Value Range Interpretation Code Description Data Tracey rce(s) Supporting Document(s) <20.0 0.0-20.0 ANTI-MITOCHONDRIAL ANTIBO DY eCW1 ([facility]) ID Date Data Source CARDIAC INJURY PROFILE 12/17/2020 12:00:00 AM EST eCW1 ([facility]) Name Value Range Interpretation Code Description Data Tracey rce(s) Supporting Document(s) [phone] CPK CREATINE PHOSPHOKINASE eCW 1 ([facility]) 3.9 <3.6 CK-MB VALUE MASS eCW1 ([facility]) 1.88 < OR =4 MB/CK RELATIVE INDEX eCW1 ([facility]) ID Date Data Source CBC with Auto Differential 12/17/2020 12:00:00 AM EST eCW1 ( [facility]) Name Value Range Interpretation Code Description Data Tracey rce(s) Supporting Document(s) 7.2 4.0-10.0 WHITE BLOOD COUNT eCW1 ([facility]) 4.81 4.30-6.10 RED BLOOD COUNT eCW1 ([facility]) 94.8 80.0-96.0 MEAN CORPUSCULAR VOLUME e CW1 ([facility]) 15.5 13.5-17.5 HEMOGLOBIN eCW1 ([facility]) 32.2 27.0-33.0 MEAN CORPUSCULAR HEMOGLOB IN eCW1 ([facility]) 45.6 42.0-52.0 HEMATOCRIT eCW1 ([facility]) 34.0 32.0-36.5 MEAN CORPUSCULAR HGB CONC eCW1 ([facility]) 47.3 36.0-66.0 NEUTROPHILS % eCW1 ([facility]) 13.2 11.5-14.5 RED CELL DISTRIBUTION WID TH eCW1 ([facility]) 278 150-450 PLATELET COUNT, AUTOMATED eCW1 ([facility]) 9.3 2.0-8.0 MONO % eCW1 ([facility]) 2.8 0.0-3.0 EOS % eCW1 ([facility] hospital) 1.1 0.0-1.0 BASO % eCW1 ([facility]) 39.1 24.0-44.0 LYMPH % eCW1 ([facility] hospital) 3.4 1.5-8.5 NEUTROPHILS # eCW1 ([facility]) 0.0 0-0 NUCLEATED RED BLOOD CELL % eCW 1 ([facility]) 0.4 0-3.0 IMMATURE GRANULOCYTE % eCW1 ([facility]) 2.8 1.5-5.0 LYMPH # eCW1 (Critical access hospital) 0.7 0.0-0.8 MONO # eCW1 (Critical access hospital) 0.2 0.0-0.5 EOS # eCW1 (Critical access hospital) 0.1 0.0-0.2 BASO # eCW1 (Critical access hospital) ID Date Data Source TROPONIN I 12/17/2020 12:00:00 AM EST eCW1 ([facility]) Name Value Range Interpretation Code Description Data Tracey rce(s) Supporting Document(s) < 0.02 < 0.10 TROPONIN I eCW1 ([facility]) ID Date Data Source GAMMA GLUTAMYLTRANSPEPTIDASE 12/17/2020 12:00:00 AM EST eCW1 ([facility]) Name Value Range Interpretation Code Description Data Tracey rce(s) Supporting Document(s) 26 15-85 GAMMA GLUTAMYLTRANSPEPTIDASE e CW1 ([facility]) ID Date Data Source Comprehensive Metabolic Profile (CMP) 12/17/2020 12:00:00 AM EST eCW1 ([facility]) Name Value Range Interpretation Code Description Data Tracey rce(s) Supporting Document(s) 92 70-100 GLUCOSE, FASTING eCW1 ([facility]) 12 7-18 BLOOD UREA NITROGEN eCW1 ([facility]) 0.93 0.70-1.30 CREATININE FOR GFR eCW1 ([facility]) > 60.0 >56 GLOMERULAR FILTRATION RATE eCW 1 ([facility]) 138 136-145 SODIUM LEVEL eCW1 ([facility]) 4.7 3.5-5.1 POTASSIUM SERUM eCW1 ([facility]) 103 98-107 CHLORIDE LEVEL eCW1 ([facility]) 31 21-32 CARBON DIOXIDE LEVEL eCW1 ([facility]) 8.8 8.5-10.1 CALCIUM LEVEL eCW1 ([facility]) 37 7-37 AST/SGOT eCW1 (Critical access hospital) 38 12-78 ALT/SGPT eCW1 (Critical access hospital) 181 45-117 ALKALINE PHOSPHATASE eCW1 ([facility]) 7.1 6.4-8.2 TOTAL PROTEIN eCW1 ([facility]) 0.4 0.2-1.0 BILIRUBIN,TOTAL eCW1 ([facility]) 3.6 3.2-5.2 ALBUMIN eCW1 (Critical access hospital) 1.0 ALBUMIN/GLOBULIN RATIO eCW1 ([facility]) ID Date Data Source NT-PRO BNP 12/17/2020 12:00:00 AM EST eCW1 ([facility]) Name Value Range Interpretation Code Description Data Tracey rce(s) Supporting Document(s) 11 <125 NT-PRO BNP eCW1 ([facility]) ID Date Data Source [id number] 10/06/2020 12:00:00 AM EST [facility] Name Value Range Interpretation Code Description Data Tracey rce(s) Supporting Document(s) 2019-nCoV RNA XXX ELIDA+probe-Imp [facility] This lab was ordered by [facility] and reported by [employer] Procedure Social History Code Duration Value Status Description Data Source(s ) Smoking 08/10/2021 12:00:00 AM EDT Never Smoker completed Never S moker eCW1 ([facility]) Smoking 08/10/2021 12:00:00 AM EDT Never Smoker completed Never S moker eCW1 ([facility]) Smoking 06/24/2021 12:00:00 AM EDT Never Smoker completed Never S moker eCW1 ([facility]) Smoking 06/24/2021 12:00:00 AM EDT Never Smoker completed Never S moker eCW1 ([facility]) Smoking 06/24/2021 12:00:00 AM EDT Never Smoker completed Never S moker eCW1 ([facility]) Smoking 06/24/2021 12:00:00 AM EDT Never Smoker completed Never S moker eCW1 ([facility]) Smoking 06/24/2021 12:00:00 AM EDT Never Smoker completed Never S moker eCW1 ([facility]) Smoking 03/13/2021 12:00:00 AM EDT Never Smoker completed Never S moker eCW1 ([facility]) Smoking 03/13/2021 12:00:00 AM EDT Never Smoker completed Never S moker eCW1 ([facility]) Smoking 03/13/2021 12:00:00 AM EDT Never Smoker completed Never S moker eCW1 ([facility]) Smoking 03/13/2021 12:00:00 AM EDT Never Smoker completed Never S moker eCW1 ([facility]) Smoking 03/13/2021 12:00:00 AM EDT Never Smoker completed Never S moker eCW1 ([facility]) Smoking 03/13/2021 12:00:00 AM EDT Never Smoker completed Never S moker eCW1 ([facility]) Smoking 03/13/2021 12:00:00 AM EDT Never Smoker completed Never S moker eCW1 ([facility]) Smoking 03/13/2021 12:00:00 AM EDT Never Smoker completed Never S moker eCW1 ([facility]) Smoking 03/13/2021 12:00:00 AM EDT Never Smoker completed Never S moker eCW1 ([facility]) Smoking 03/13/2021 12:00:00 AM EDT Never Smoker completed Never S moker eCW1 ([facility]) Smoking 03/13/2021 12:00:00 AM EDT Never Smoker completed Never S moker eCW1 ([facility]) Smoking 03/13/2021 12:00:00 AM EDT Never Smoker completed Never S moker eCW1 ([facility]) Smoking 03/13/2021 12:00:00 AM EDT Never Smoker completed Never S moker eCW1 ([facility]) Smoking 03/13/2021 12:00:00 AM EDT Never Smoker completed Never S moker eCW1 ([facility]) Smoking 03/13/2021 12:00:00 AM EDT Never Smoker completed Never S moker eCW1 ([facility]) Smoking 03/13/2021 12:00:00 AM EDT Never Smoker completed Never S moker eCW1 ([facility]) Smoking 03/13/2021 12:00:00 AM EDT Never Smoker completed Never S moker eCW1 ([facility]) Smoking 03/13/2021 12:00:00 AM EDT Never Smoker completed Never S moker eCW1 ([facility]) Smoking 02/17/2021 12:00:00 AM EDT Never Smoker completed Never S moker eCW1 ([facility]) Smoking 02/17/2021 12:00:00 AM EDT Never Smoker completed Never S moker eCW1 ([facility]) Smoking 02/17/2021 12:00:00 AM EDT Never Smoker completed Never S moker eCW1 ([facility]) Smoking 02/17/2021 12:00:00 AM EDT Never Smoker completed Never S moker eCW1 ([facility]) Smoking 02/17/2021 12:00:00 AM EDT Never Smoker completed Never S moker eCW1 ([facility]) Smoking 12/17/2020 12:00:00 AM EST Never Smoker completed Never S moker eCW1 ([facility]) Smoking 12/17/2020 12:00:00 AM EST Never Smoker completed Never S moker eCW1 ([facility]) Smoking 12/17/2020 12:00:00 AM EST Never Smoker completed Never S moker eCW1 ([facility]) Smoking 12/17/2020 12:00:00 AM EST Never Smoker completed Never S moker eCW1 ([facility]) Smoking 12/17/2020 12:00:00 AM EST Never Smoker completed Never S moker eCW1 ([facility]) Smoking 12/17/2020 12:00:00 AM EST Never Smoker completed Never S moker eCW1 ([facility]) Smoking 12/17/2020 12:00:00 AM EST Never Smoker completed Never S moker eCW1 ([facility]) Smoking 12/17/2020 12:00:00 AM EST Never Smoker completed Never S moker eCW1 ([facility]) Smoking 12/17/2020 12:00:00 AM EST Never Smoker completed Never S moker eCW1 ([facility]) Smoking 12/17/2020 12:00:00 AM EST Never Smoker completed Never S moker eCW1 ([facility]) Smoking 12/17/2020 12:00:00 AM EST Never Smoker completed Never S moker eCW1 ([facility]) Smoking 12/17/2020 12:00:00 AM EST Never Smoker completed Never S moker eCW1 ([facility]) Smoking 12/02/2020 12:00:00 AM EST Never Smoker completed Never S moker eCW1 ([facility]) Smoking 12/02/2020 12:00:00 AM EST Never Smoker completed Never S moker eCW1 ([facility]) Smoking 11/17/2020 12:00:00 AM EST Never Smoker completed Never S moker eCW1 ([facility]) Smoking 11/17/2020 12:00:00 AM EST Never Smoker completed Never S moker eCW1 ([facility]) Smoking 11/17/2020 12:00:00 AM EST Never Smoker completed Never S moker eCW1 ([facility]) Smoking 10/17/2020 12:00:00 AM EST Never Smoker completed Never S moker eCW1 ([facility]) Smoking 10/17/2020 12:00:00 AM EST Never Smoker completed Never S moker eCW1 ([facility]) Smoking 10/17/2020 12:00:00 AM EST Never Smoker completed Never S moker eCW1 ([facility]) Smoking 10/17/2020 12:00:00 AM EST Never Smoker completed Never S moker eCW1 ([facility]) Smoking 10/17/2020 12:00:00 AM EST Never Smoker completed Never S moker eCW1 ([facility]) Smoking 10/17/2020 12:00:00 AM EST Never Smoker completed Never S moker eCW1 ([facility]) Smoking 10/17/2020 12:00:00 AM EST Never Smoker completed Never S moker eCW1 ([facility]) Smoking 09/11/2020 12:00:00 AM EST Never Smoker completed Never S moker eCW1 ([facility]) Smoking 09/11/2020 12:00:00 AM EST Never Smoker completed Never S moker eCW1 ([facility]) Smoking 09/11/2020 12:00:00 AM EST Never Smoker completed Never S moker eCW1 ([facility]) Smoking 09/11/2020 12:00:00 AM EST Never Smoker completed Never S moker eCW1 ([facility]) Smoking 09/11/2020 12:00:00 AM EST Never Smoker completed Never S moker eCW1 ([facility]) Smoking 09/11/2020 12:00:00 AM EST Never Smoker completed Never S moker eCW1 ([facility]) Vital Signs ID Date Data Source UNK Name Value Range Interpretation Code Description Data Source(s) Body weight 170 [lb_av] 170 [lb_av] W1 ([facility]) Body mass index (BMI) [Ratio] 28.29 kg/m2 28.29 kg/m2 eCW1 ([facility]) Body temperature 98.3 [degF] 98.3 [degF] W1 ( [facility]) Systolic blood pressure 122 mm[Hg] 122 mm[Hg] e CW1 ([facility]) Diastolic blood pressure 78 mm[Hg] 78 mm[Hg] eCW1 ([facility]) Heart rate 77 /min 77 /min W1 ([facility]) Respiratory rate 18 /min 18 /min eCW1 ([facility]) Body weight 77.11 kg 77.11 kg eCW1 ([facility]) Body height 65 [in_i] 65 [in_i] eCW1 ([facility]) Body weight 174 [lb_av] 174 [lb_av] eCW1 ([facility]) Body weight 78.93 kg 78.93 kg eCW1 ([facility]) Body height 65 [in_i] 65 [in_i] eCW1 ([facility]) Body mass index (BMI) [Ratio] 28.95 kg/m2 28.95 kg/m2 eCW1 ([facility]) Heart rate 84 /min 84 /min eCW1 ([facility]) Respiratory rate 18 /min 18 /min eCW1 ([facility]) Body temperature 98 [degF] 98 [degF] eCW1 ([facility]) Body weight 174 [lb_av] 174 [lb_av] eCW1 ([facility]) Body height 65 [in_i] 65 [in_i] eCW1 ([facility]) Body mass index (BMI) [Ratio] 28.95 kg/m2 28.95 kg/m2 eCW1 ([facility]) Diastolic blood pressure 78 mm[Hg] 78 mm[Hg] eCW1 ([facility]) Heart rate 95 /min 95 /min eCW1 ([facility]) Respiratory rate 20 /min 20 /min eCW1 ([facility]) Body temperature 98.7 [degF] 98.7 [degF] eCW1 ( [facility]) Systolic blood pressure 122 mm[Hg] 122 mm[Hg] e CW1 ([facility]) Systolic blood pressure 122 mm[Hg] 122 mm[Hg] e CW1 ([facility]) Body weight 178 [lb_av] 178 [lb_av] eCW1 ([facility]) Body height 65 [in_i] 65 [in_i] eCW1 ([facility]) Body mass index (BMI) [Ratio] 29.62 kg/m2 29.62 kg/m2 eCW1 ([facility]) Heart rate 87 /min 87 /min eCW1 ([facility]) Diastolic blood pressure 80 mm[Hg] 80 mm[Hg] eCW1 ([facility]) Respiratory rate 18 /min 18 /min eCW1 ([facility]) Body temperature 98.5 [degF] 98.5 [degF] eCW1 ( [facility]) Body weight 182 [lb_av] 182 [lb_av] eCW1 ([facility]) Body height 65 [in_i] 65 [in_i] eCW1 ([facility]) Body mass index (BMI) [Ratio] 30.28 kg/m2 30.28 kg/m2 eCW1 ([facility]) Heart rate 79 /min 79 /min eCW1 ([facility]) Respiratory rate 18 /min 18 /min eCW1 ([facility]) Body temperature 98 [degF] 98 [degF] eCW1 ([facility]) Systolic blood pressure 124 mm[Hg] 124 mm[Hg] e CW1 ([facility]) Diastolic blood pressure 92 mm[Hg] 92 mm[Hg] eCW1 ([facility]) Body weight 173 [lb_av] 173 [lb_av] eCW1 ([facility]) Body height 65 [in_i] 65 [in_i] eCW1 ([facility]) Body mass index (BMI) [Ratio] 28.79 kg/m2 28.79 kg/m2 eCW1 ([facility]) Heart rate 97 /min 97 /min eCW1 ([facility]) Respiratory rate 18 /min 18 /min eCW1 ([facility]) Body temperature 99.1 [degF] 99.1 [degF] eCW1 ( [facility]) Systolic blood pressure 128 mm[Hg] 128 mm[Hg] e CW1 ([facility]) Diastolic blood pressure 62 mm[Hg] 62 mm[Hg] eCW1 ([facility]) Systolic blood pressure 118 mm[Hg] 118 mm[Hg] e CW1 ([facility]) Diastolic blood pressure 78 mm[Hg] 78 mm[Hg] eCW1 ([facility]) Body weight 174.4 [lb_av] 174.4 [lb_av] eCW1 ([facility]) Body height 65 [in_i] 65 [in_i] eCW1 ([facility]) Body mass index (BMI) [Ratio] 29.02 kg/m2 29.02 kg/m2 eCW1 ([facility]) Heart rate 95 /min 95 /min eCW1 ([facility]) Respiratory rate 20 /min 20 /min eCW1 ([facility]) Body temperature 96.3 [degF] 96.3 [degF] eCW1 ( [facility]) Body weight 177 [lb_av] 177 [lb_av] eCW1 ([facility]) Body height 65 [in_i] 65 [in_i] eCW1 ([facility]) Body mass index (BMI) [Ratio] 29.45 kg/m2 29.45 kg/m2 eCW1 ([facility]) Heart rate 69 /min 69 /min eCW1 ([facility]) Respiratory rate 16 /min 16 /min eCW1 ([facility]) Body temperature 98.8 [degF] 98.8 [degF] eCW1 ( [facility]) Systolic blood pressure 128 mm[Hg] 128 mm[Hg] e CW1 ([facility]) Diastolic blood pressure 78 mm[Hg] 78 mm[Hg] eCW1 ([facility]) Body weight 171.8 [lb_av] 171.8 [lb_av] eCW1 ([facility]) Body height 65 [in_i] 65 [in_i] eCW1 ([facility]) Body mass index (BMI) [Ratio] 28.59 kg/m2 28.59 kg/m2 eCW1 ([facility]) Heart rate 69 /min 69 /min eCW1 ([facility]) Respiratory rate 18 /min 18 /min eCW1 ([facility]) Body temperature 98.0 [degF] 98.0 [degF] eCW1 ( [facility]) Systolic blood pressure 130 mm[Hg] 130 mm[Hg] e CW1 ([facility]) Diastolic blood pressure 82 mm[Hg] 82 mm[Hg] eCW1 ([facility]) Patient Treatment Plan of Care Planned Activity Planned Date Details Description Data Source (s) Eszopiclone 2 MG Oral Tablet [Lunesta] 08/17/2021 12:00:00 AM EDT eCW1 ([facility]) Lorazepam 0.5 MG Oral Tablet 08/17/2021 12:00:00 AM EDT eCW1 ([facility]) Methylphenidate HCl ER (CD) 10 MG 08/10/2021 12:00:00 AM EDT eCW1 ([facility]) Methylphenidate HCl ER (CD) 10 MG 08/10/2021 12:00:00 AM EDT eCW1 ([facility]) Methylphenidate HCl ER (CD) 10 MG 07/28/2021 12:00:00 AM EDT eCW1 ([facility]) pregabalin 200 MG Oral Capsule [Lyrica] 07/28/2021 12:00:00 AM EDT eCW1 ([facility]) Eszopiclone 2 MG Oral Tablet [Lunesta] 07/28/2021 12:00:00 AM EDT eCW1 ([facility]) 2500 MG Testosterone 0.0162 MG/MG Topical Gel [Androge l] 07/21/2021 12:00:00 AM EDT eCW1 ([facility]) Lorazepam 0.5 MG Oral Tablet 07/21/2021 12:00:00 AM EDT eCW1 ([facility]) 2500 MG Testosterone 0.0162 MG/MG Topical Gel [Androge l] 07/21/2021 12:00:00 AM EDT eCW1 ([facility]) Lorazepam 0.5 MG Oral Tablet 07/21/2021 12:00:00 AM EDT eCW1 ([facility]) Methylphenidate HCl ER (CD) 10 MG 07/01/2021 12:00:00 AM EDT eCW1 ([facility]) NITROFURANTOIN, MACROCRYSTALS 25 MG / Ni trofurantoin, Monohydrate 75 MG Oral Capsule 06/24/2021 12:00:00 AM EDT eCW1 ([facility]) NITROFURANTOIN, MACROCRYSTALS 25 MG / Ni trofurantoin, Monohydrate 75 MG Oral Capsule 06/24/2021 12:00:00 AM EDT eCW1 ([facility]) Lorazepam 0.5 MG Oral Tablet 06/22/2021 12:00:00 AM EDT eCW1 ([facility]) pregabalin 200 MG Oral Capsule [Lyrica] 06/22/2021 12:00:00 AM EDT eCW1 ([facility]) Lorazepam 0.5 MG Oral Tablet 06/22/2021 12:00:00 AM EDT eCW1 ([facility]) Methylphenidate HCl ER (CD) 10 MG 06/04/2021 12:00:00 AM EDT eCW1 ([facility]) Methylphenidate HCl ER (CD) 10 MG 06/04/2021 12:00:00 AM EDT eCW1 ([facility]) 2500 MG Testosterone 0.0162 MG/MG Topical Gel [Androge l] 06/01/2021 12:00:00 AM EDT eCW1 ([facility]) 2500 MG Testosterone 0.0162 MG/MG Topical Gel [Androge l] 06/01/2021 12:00:00 AM EDT eCW1 ([facility]) 2500 MG Testosterone 0.0162 MG/MG Topical Gel [Androge l] 06/01/2021 12:00:00 AM EDT eCW1 ([facility]) 2500 MG Testosterone 0.0162 MG/MG Topical Gel [Androge l] 06/01/2021 12:00:00 AM EDT eCW1 ([facility]) sildenafil 50 MG Oral Tablet [Viagra] 05/05/2021 12:00:00 AM EDT eCW1 ([facility]) sildenafil 50 MG Oral Tablet [Viagra] 05/05/2021 12:00:00 AM EDT eCW1 ([facility]) sildenafil 50 MG Oral Tablet [Viagra] 05/05/2021 12:00:00 AM EDT eCW1 ([facility]) Methylphenidate HCl ER (CD) 10 MG 05/05/2021 12:00:00 AM EDT eCW1 ([facility]) sildenafil 50 MG Oral Tablet [Viagra] 05/05/2021 12:00:00 AM EDT eCW1 ([facility]) Methylphenidate HCl ER (CD) 10 MG 05/05/2021 12:00:00 AM EDT eCW1 ([facility]) sildenafil 50 MG Oral Tablet [Viagra] 05/05/2021 12:00:00 AM EDT eCW1 ([facility]) Methylphenidate HCl ER (CD) 10 MG 05/05/2021 12:00:00 AM EDT eCW1 ([facility]) sildenafil 50 MG Oral Tablet [Viagra] 05/05/2021 12:00:00 AM EDT eCW1 ([facility]) Methylphenidate HCl ER (CD) 10 MG 05/05/2021 12:00:00 AM EDT eCW1 ([facility]) sildenafil 50 MG Oral Tablet [Viagra] 05/05/2021 12:00:00 AM EDT eCW1 ([facility]) Methylphenidate HCl ER (CD) 10 MG 05/05/2021 12:00:00 AM EDT eCW1 ([facility]) Methylphenidate HCl ER (CD) 10 MG 05/05/2021 12:00:00 AM EDT eCW1 ([facility]) sildenafil 50 MG Oral Tablet [Viagra] 05/05/2021 12:00:00 AM EDT eCW1 ([facility]) Methylphenidate HCl ER (CD) 10 MG 05/05/2021 12:00:00 AM EDT eCW1 ([facility]) sildenafil 50 MG Oral Tablet [Viagra] 05/05/2021 12:00:00 AM EDT eCW1 ([facility]) Methylphenidate HCl ER (CD) 10 MG 05/05/2021 12:00:00 AM EDT eCW1 ([facility]) sildenafil 50 MG Oral Tablet [Viagra] 05/05/2021 12:00:00 AM EDT eCW1 ([facility]) Methylphenidate HCl ER (CD) 10 MG 04/28/2021 12:00:00 AM EDT eCW1 ([facility]) Methylphenidate Hydrochloride 5 MG Oral Tablet 04/20/2021 12:00:00 AM EDT eCW1 ([facility]) Methylphenidate Hydrochloride 5 MG Oral Tablet 04/20/2021 12:00:00 AM EDT eCW1 ([facility]) Methylphenidate Hydrochloride 5 MG Oral Tablet 04/20/2021 12:00:00 AM EDT eCW1 ([facility]) Methylphenidate HCl ER (CD) 10 MG 03/13/2021 12:00:00 AM EDT eCW1 ([facility]) Methylphenidate HCl ER (CD) 10 MG 03/13/2021 12:00:00 AM EDT eCW1 ([facility]) Methylphenidate HCl ER (CD) 10 MG 03/13/2021 12:00:00 AM EDT eCW1 ([facility]) Methylphenidate HCl ER (CD) 10 MG 03/13/2021 12:00:00 AM EDT eCW1 ([facility]) Methylphenidate Hydrochloride 5 MG Oral Tablet 03/03/2021 12:00:00 AM EDT eCW1 ([facility]) Sulfasalazine 500 MG Delayed Release Oral Tablet 02/17/2021 12:00:0 0 AM EDT eCW1 ([facility]) Sulfasalazine 500 MG Delayed Release Oral Tablet 02/17/2021 12:00:0 0 AM EDT eCW1 ([facility]) Sulfasalazine 500 MG Delayed Release Oral Tablet 02/17/2021 12:00:0 0 AM EDT eCW1 ([facility]) Sulfasalazine 500 MG Delayed Release Oral Tablet 02/17/2021 12:00:0 0 AM EDT eCW1 ([facility]) Sulfasalazine 500 MG Delayed Release Oral Tablet 02/17/2021 12:00:0 0 AM EDT eCW1 ([facility]) Sulfasalazine 500 MG Delayed Release Oral Tablet 02/17/2021 12:00:0 0 AM EDT eCW1 ([facility]) Sulfasalazine 500 MG Delayed Release Oral Tablet 02/17/2021 12:00:0 0 AM EDT eCW1 ([facility]) Methylphenidate Hydrochloride 5 MG Oral Tablet 02/05/2021 12:00:00 AM EDT eCW1 ([facility]) Methylphenidate Hydrochloride 5 MG Oral Tablet 02/05/2021 12:00:00 AM EDT eCW1 ([facility]) Methylphenidate Hydrochloride 5 MG Oral Tablet 01/07/2021 12:00:00 AM EST eCW1 ([facility]) Methylphenidate Hydrochloride 5 MG Oral Tablet 01/07/2021 12:00:00 AM EST eCW1 ([facility]) Methylphenidate Hydrochloride 5 MG Oral Tablet 01/07/2021 12:00:00 AM EST eCW1 ([facility]) Methylphenidate Hydrochloride 5 MG Oral Tablet 01/07/2021 12:00:00 AM EST eCW1 ([facility]) Methylphenidate Hydrochloride 5 MG Oral Tablet 12/12/2020 12:00:00 AM EST eCW1 ([facility]) Diclofenac Sodium 0.01 MG/MG Topical Gel [Voltaren] 12/02/19 12:00:00 AM EST eCW1 ([facility]) Diclofenac Sodium 0.01 MG/MG Topical Gel [Voltaren] 12/02/19 12:00:00 AM EST eCW1 ([facility]) Methylphenidate Hydrochloride 10 MG Oral Tablet 11/03/2020 12:00:00 AM EST eCW1 ([facility]) Methylphenidate Hydrochloride 10 MG Oral Tablet 11/03/2020 12:00:00 AM EST eCW1 ([facility]) Methylphenidate Hydrochloride 10 MG Oral Tablet 10/20/2020 12:00:00 AM EST eCW1 ([facility]) Methylphenidate Hydrochloride 10 MG Oral Tablet 10/20/2020 12:00:00 AM EST eCW1 ([facility]) Methylphenidate Hydrochloride 10 MG Oral Tablet 10/20/2020 12:00:00 AM EST eCW1 ([facility]) Methylphenidate Hydrochloride 10 MG Oral Tablet 10/20/2020 12:00:00 AM EST eCW1 ([facility]) Methylphenidate HCl ER (LA) 10 MG 10/17/2020 12:00:00 AM EST eCW1 ([facility]) Methylphenidate Hydrochloride 5 MG Oral Tablet 10/02/2020 12:00:00 AM EST eCW1 ([facility]) atorvastatin 20 MG Oral Tablet 08/01/2020 12:00:00 AM EDT eCW1 ([facility]) atorvastatin 20 MG Oral Tablet 08/01/2020 12:00:00 AM EDT eCW1 ([facility]) atorvastatin 20 MG Oral Tablet 08/01/2020 12:00:00 AM EDT eCW1 ([facility]) atorvastatin 20 MG Oral Tablet 08/01/2020 12:00:00 AM EDT eCW1 ([facility]) atorvastatin 20 MG Oral Tablet 08/01/2020 12:00:00 AM EDT eCW1 ([facility]) atorvastatin 20 MG Oral Tablet 08/01/2020 12:00:00 AM EDT eCW1 ([facility]) atorvastatin 20 MG Oral Tablet 08/01/2020 12:00:00 AM EDT eCW1 ([facility]) atorvastatin 20 MG Oral Tablet 08/01/2020 12:00:00 AM EDT eCW1 ([facility]) atorvastatin 20 MG Oral Tablet 08/01/2020 12:00:00 AM EDT eCW1 ([facility])
[2021-09-03] MEDS ORDERED: diazePAM 5MG TABLET PO ONE (07:45)
[2021-09-03] MEDS ORDERED: KETOROLAC 30 MG/ML 1ML VIAL IV ONE (08:00)
[2021-09-03 08:09] LABS: BASO # 0.1 10^3/uL (0.0-0.2); BASO % 0.7 % (0.0-1.0); EOS # 0.1 10^3/uL (0.0-0.5); EOS % 1.3 % (0.0-3.0); HEMATOCRIT 49.2 % (42.0-52.0); HEMOGLOBIN 16.9 g/dl (13.5-17.5); LYMPH % 36.8 % (24.0-44.0); MEAN CORPUSCULAR HEMOGLOBIN 32.1 pg (27.0-33.0); MEAN CORPUSCULAR HGB CONC 34.3 g/dl (32.0-36.5); MEAN CORPUSCULAR VOLUME 93.5 fl (80.0-96.0); MONO % 9.6 % (2.0-8.0); NEUTROPHILS # 5.5 10^3/uL (1.5-8.5); NEUTROPHILS % 51.3 % (36.0-66.0); PLATELET COUNT, AUTOMATED 310 10^3/uL (150-450); RED BLOOD COUNT 5.26 10^6/uL (4.30-6.10); WHITE BLOOD COUNT 10.8 10^3/uL (4.0-10.0)
[2021-09-03 08:28] LABS: ERYTHROCYTE SEDIMENTATION RATE 2 mm/hr (0-20)
[2021-09-03 08:32] LABS: ALBUMIN 3.8 GM/DL (3.2-5.2); ALT/SGPT 38 U/L (12-78); BILIRUBIN,DIRECT 0.1 MG/DL (0.0-0.2); BILIRUBIN,TOTAL 0.5 MG/DL (0.2-1.0); C REACTIVE PROTEIN QUANTITATIV < 0.30 MG/DL (0.00-0.30); MAGNESIUM LEVEL 2.4 MG/DL (1.8-2.4); TOTAL PROTEIN 7.8 GM/DL (6.4-8.2)
[2021-09-03] MEDS ORDERED: ONDANSETRON 4MG/2ML VIAL IV ONE (08:35)
[2021-09-03] MEDS ORDERED: MORPHINE 4 MG/ML 1ML VIAL/SYRINGE (J2270) IV ONE ×2 (08:35→22:20)
--- NOTE | 2021-09-03 09:48 | REPVR ---
PROCEDURE INFORMATION: Exam: MR Lumbar Spine Without Contrast Exam date and time: 09/03/2021 9:28 AM Age: 56 years old Clinical indication: Low back pain; Additional info: Sev L sided pain into L hip, tingling of foot TECHNIQUE: Imaging protocol: Multiplanar magnetic resonance images of the lumbar spine without intravenous contrast. COMPARISON: MRI-Spine, L.S. without con 11/26/2016 1:46 PM FINDINGS: Examination was terminated prematurely secondary to patient discomfort. Axial imaging was not completed. Vertebrae: There is no fracture or listhesis. Spinal cord: The conus medullaris terminates at T12/L1. The patient has a congenitally narrowed spinal canal. There is a thin lipoma of the filum terminalis. L1-L2: There is shallow disc bulging. There is mild facet hypertrophy. There is mild bilateral neural foraminal narrowing. L2-L3: There is diffuse disc bulging. There is moderate facet hypertrophy. There is mild left neural foraminal narrowing. There is mild canal stenosis. L3-L4: There is shallow disc bulging. There is moderate facet hypertrophy. There is mild right and moderate left neural foraminal narrowing. L4-L5: There is diffuse disc bulging. There is moderate facet hypertrophy. There is mild right and moderate left neural foraminal narrowing. L5-S1: There is diffuse disc bulging. There is moderate facet hypertrophy. There is severe bilateral neural foraminal narrowing. Soft tissues: Unremarkable. IMPRESSION: Limited examination as above. Degenerative disc disease and spondylosis. At L5/S1, changes contribute to severe bilateral neural foraminal narrowing. Electronically signed by: Roseann Hatch On 09/03/2021 09:48:35 AM
[2021-09-03] MEDS ORDERED: HYDROMORPHONE HCL 0.5 MG/ 0.5 ML SYRINGE (J1170 PER 1) IV ONE (10:35)
[2021-09-03] MEDS ORDERED: ISOVUE-370 76% 100ML VIAL As Ordered ONE (10:53)
--- NOTE | 2021-09-03 11:20 | REP ---
INDICATION: L flank, severe LLQ abd pain. COMPARISON: Multiple the latest 07/06/2020 TECHNIQUE: Standard helical technique after the intravenous administration of 100 cc Isovue 370 FINDINGS: The lung bases are clear and unchanged. The liver, gallbladder, spleen, pancreas, adrenal glands, and kidneys are again seen to be within normal limits. The abdominal aorta and para-aortic regions are again seen to be within normal limits. Respiratory motion artifact obscures multiple images particularly obscuring the cortez of multiple bowel loops. This is to such a degree that a small amount of free air could be obscured. There is no gross free air. There is no evidence of free fluid. There is no evidence of a mass or adenopathy. Grossly, the bowel loops are unremarkable. Bone window technique throughout the exam shows no significant change in appearance of the osseous structures. IMPRESSION: Findings and limitations as described above. Although there is no evidence of acute disease repeat examination with motion artifact abated should be considered. <Electronically signed by Tato Perea > 09/03/21 [id number]
[2021-09-03] MEDS ORDERED: ATIV1TAB10 PO (11:57)
[2021-09-03] MEDS ORDERED: PREG200C PO (11:57)
[2021-09-03] MEDS ORDERED: HYDR-4468 PO (11:57)
[2021-09-03] MEDS ORDERED: D32000CA PO (11:57)
[2021-09-03] MEDS ORDERED: METH10CA2 PO (11:59)
[2021-09-03] MEDS ORDERED: HOME MED LIST COMPLETE! XX SCH (12:00)
[2021-09-03] MEDS ORDERED: MAALOX 30 ML SUSP *UDC PO PRN (12:35)
[2021-09-03] MEDS ORDERED: MOM 30ML SUSPENSION UDC PO PRN (12:35)
--- OUTSIDE RECORDS SUMMARY | 2021-09-03 12:54 | CCD ---
Author Author [facility] Organization [facility] Address Unknown Phone Unavailable Support Name Relationship Address Phone SHERRI SANTOYO Next Of Kin Unknown KHALIDA GODOY Next Of Kin [address] [place] [address] ROCÍO JERONIMO Next Of Kin [address] [place] [address] DMITRI MENDOZA Next Of Kin [address] [place] [address] L DARLINGSUSY Nelson Next Of Kin [address] [place] [address] RAYMOUR Next Of Kin [address] [place] [address] UE Next Of Kin Unknown Unavailable KHALIDA AMBROSE Next Of Kin [address] [facility] [address] [address] [facility], [address] DISABLED Next Of Kin Unknown SUSY JERONIMO Next Of Kin [address] [place] [address] ROCÍO JERONIMO ECON [address] [place] [address] Unavailable Re-disclosure Warning The records that you [...] is protected by Article 27-F of the [place] Public Health law. If you continue you may have access to information: Regarding HIV / AIDS; Provided by facilities licensed or operated by the [facility] Office of Mental Health; or Provided by the [facility] Office for People With Developmental Disabilities. If such information is present, then the following [facility] mandated warning applies: This information has been [...] law may result in a fine or longterm sentence or both. A general authorization for the release of medical or other information is NOT sufficient authorization for further disc losure. Encounters Encounter Providers Location Date Indications Data Source(s ) Unknown [address] [facility] [id number] 08/17/2021 12:00:00 AM EDT [facility]CW1 ([facility]) Outpatient [address] [facility] [address] 08/10/2021 12:00:00 AM EDT [facility] Unknown [address] [facility] [address] 07/24/2021 12:00:00 AM EDT [facility]CW1 ([facility]) Unknown [address] [facility] [address] 07/20/2021 12:00:00 AM EDT eCW1 ([facility]) Unknown [address] [facility] [address] 07/20/2021 12:00:00 AM EDT eCW1 ([facility]) Unknown [address] [facility] [address] 06/30/2021 12:00:00 AM EDT eCW1 [facility]) Office Visit, Est Pt., Level 3 PC [address] [place] [address] 06/24/2021 12:00:00 AM EDT eCW1 ([facility]) [place] [address] [facility] [address] 06/22/2021 12:00:00 AM EDT eCW1 ([facility]) [place] [address] [facility] [address] 06/02/2021 12:00:00 AM EDT eCW1 ([facility]) [place] [address] [facility] [address] 06/01/2021 12:00:00 AM EDT eCW1 ([facility]) [place] [address] [facility] [address] 05/27/2021 12:00:00 AM EDT eCW1 ([facility]) [place] [address] [facility] [address] 05/26/2021 12:00:00 AM EDT eCW1 ([facility]) [place] [address] [facility] [address] 05/22/2021 12:00:00 AM EDT eCW1 ([facility]) [place] [address] [facility] [address] 05/05/2021 12:00:00 AM EDT eCW1 ([facility]) [place] [address] [facility] [address] 05/05/2021 12:00:00 AM EDT eCW1 ([facility]) [place] [address] [facility] [address] 04/28/2021 12:00:00 AM EDT eCW1 ([facility]) Unknown [address] [facility] [address] 04/28/2021 12:00:00 AM EDT eCW1 ([facility]) [place] [address] [facility] [address] 04/24/2021 12:00:00 AM EDT eCW1 ([facility]) [place] [address] [facility] [address] 04/21/2021 12:00:00 AM EDT eCW1 ([facility]) [place] [address] [facility] [address] 04/21/2021 12:00:00 AM EDT eCW1 ([facility]) [place] [address] [facility] [address] 04/16/2021 12:00:00 AM EDT eCW1 ([facility]) [place] [address] [facility] [address] 2021 12:00:00 AM EDT eCW1 ([facility]) [place] [address] [facility] [address] 03/23/2021 12:00:00 AM EDT eCW1 ([facility]) [place] [address] [facility] [address] 03/16/2021 12:00:00 AM EDT eCW1 ([facility]) Outpatient [address] [facility] [address] 03/13/2021 12:00:00 AM EDT eCW1 ([facility]) [place] [address] [facility] [address] 03/03/2021 12:00:00 AM EDT eCW1 ([facility]) Unknown [address] [facility] [address] 02/24/2021 12:00:00 AM EDT eCW1 ([facility]) Unknown [address] [facility] [address] 02/19/2021 12:00:00 AM EDT eCW1 ([facility]) Office Visit, Est Pt., Level 3 PC [address] [place] [address] 02/17/2021 12:00:00 AM EDT eCW1 ([facility]) [place] [address] [facility] [address] 02/17/2021 12:00:00 AM EDT eCW1 ([facility]) [place] [address] [facility] [address] 02/10/2021 12:00:00 AM EDT eCW1 ([facility]) [place] [address] [facility] [address] 02/04/2021 12:00:00 AM EDT eCW1 ([facility]) [place] [address] [facility] [address] 01/26/2021 12:00:00 AM EDT eCW1 ([facility]) [place] [address] [facility] [address] 01/21/2021 12:00:00 AM EDT eCW1 ([facility]) [place] [address] [facility] [address] 01/19/2021 12:00:00 AM EDT eCW1 ([facility]) [place] [address] [facility] [address] 01/07/2021 12:00:00 AM EST eCW1 ([facility]) [place] [address] [facility] [address] 12/31/2020 12:00:00 AM EST eCW1 ([facility]) [place] [address] [facility] [address] 12/30/2020 12:00:00 AM EST eCW1 ([facility]) [place] [address] [facility] [address] 12/23/2020 12:00:00 AM EST eCW1 ([facility]) [place] [address] [facility] [address] 12/19/2020 12:00:00 AM EST eCW1 ([facility]) Office Visit, Est Pt., Level 3 PC [address] [place] [address] 12/17/2020 12:00:00 AM EST eCW1 ([facility]) Unknown [address] [facility] [address] 12/16/2020 12:00:00 AM EST eCW1 ([facility]) Unknown [address] [facility] [place] [address] 12/10/2020 12:00:00 AM EST eCW1 ([facility]) Office Visit, Est Pt., Level 3 PC [address] [place] [address] 12/02/2020 12:00:00 AM EST eCW1 ([facility]) [place] [address] [facility] [address] 11/26/2020 12:00:00 AM EST eCW1 ([facility]) Unknown [address] [facility] [place] [address] 11/24/2020 12:00:00 AM EST eCW1 ([facility]) Outpatient [address] [facility] [place] [address] 11/17/2020 12:00:00 AM EST eCW1 ([facility]) Unknown [address] [facility] [place] [address] 11/04/2020 12:00:00 AM EST eCW1 ([facility]) Unknown [address] [facility] [address] 10/29/2020 12:00:00 AM EST eCW1 ([facility]) Unknown [address] [facility] [place] [address] 10/21/2020 12:00:00 AM EST eCW1 ([facility]) Unknown [address] [facility] [place] [address] 10/20/2020 12:00:00 AM EST eCW1 ([facility]) Unknown [address] [facility] [place] [address] 10/17/2020 12:00:00 AM EST eCW1 ([facility]) Office Visit, Est Pt., Level 4 PC [address] [place] [address] 10/17/2020 12:00:00 AM EST eCW1 ([facility]) Unknown [address] [facility] [address] 10/17/2020 12:00:00 AM EST eCW1 ([facility]) Unknown [address] [facility] [address] 09/30/2020 12:00:00 AM EST eCW1 ([facility]) Unknown [address] [facility] [place] [address] 09/29/2020 12:00:00 AM EST eCW1 ([facility]) Unknown [address] [facility] [address] 09/22/2020 12:00:00 AM EST eCW1 ([facility]) [place] [address] [facility] [address] 09/18/2020 12:00:00 AM EST eCW1 ([facility]) [place] [address] [facility] [address] 09/16/2020 12:00:00 AM EST eCW1 ([facility]) Outpatient [address] [facility] [address] 09/11/2020 12:00:00 AM EST eCW1 ([facility]) [place] [address] [facility] [address] 08/29/2020 12:00:00 AM EDT eCW1 ([facility]) Unknown [address] [facility] [address] 08/07/2020 12:00:00 AM EDT eCW1 ([facility]) Unknown [address] [facility] [place] [address] 08/01/2020 12:00:00 AM EDT eCW1 ([facility]) [place] [address] [facility] [address] 07/31/2020 12:00:00 AM EDT eCW1 ([facility]) Immunizations Vaccine Date Status Description Data Source(s) COVID-19 VACC,MRNA(MODERNA)/PF 03/05/2021 12:00:00 AM EDT completed [facility] COVID-19 VACCINE Moderna 03/05/2021 12:00:00 AM EDT completed [facility] Vaccine Series Complete: YESThis Data wa s Submitted to [facility] Via [employer]. COVID-19 VACCINE Moderna 02/05/2021 12:00:00 AM EDT completed [facility] Vaccine Series Complete: NOThis Data was Submitted to [facility] [employer]. COVID-19 VACCINE, MRNA-1273, LNP-S (MODERNA)/PF 02/05/2021 1 [...] 1.0 {tablet_immediately_before_bedtime} active Lunesta 2 MG eCW1 ([facility]) Lorazepam 0.5 MG Oral Tablet LORazepam 0.5 MG LORazepam 0.5 MG 08/17/2021 12:00:00 AM EDT active LORazepa m 0.5 MG eCW1 ([facility]) 10 mg 08/15/2021 12:00:00 AM EDT capsule, ER biphasic 30 -70 60 TAKE ONE CAPSULE BY MOUTH TWICE A DAY MAXIMUM DAILY DOSE = 2 CAPSULES TAKE ONE CAPSULE BY MOUTH TWICE A DAY MAXIMUM DAILY DOSE = 2 CAPSULES SOLD: 08/15/2021 [facility] Methylphenidate HCl ER (CD) 10 MG Methylphenidate HCl ER (CD ) 10 MG 08/10/2021 12:00:00 AM EDT active Methylph enidate HCl ER (CD) 10 MG eCW1 ([facility]) Methylphenidate HCl ER (CD) 10 MG Methylphenidate HCl ER (CD ) 10 MG 08/10/2021 12:00:00 AM EDT active Methylph enidate HCl ER (CD) 10 MG eCW1 ([facility]) 10 mg 08/01/2021 12:00:00 AM EDT capsule, ER biphasic 30 -70 10 TAKE ONE CAPSULE BY MOUTH EVERY MORNING MAXIMUM DAILY DOSE = 1 CAPSULE TAKE ONE CAPSULE BY MOUTH EVERY MORNING MAXIMUM DAILY DOSE = 1 CAPSULE SOLD: 08/01/2021 [facility] 10 mg 08/01/2021 12:00:00 AM EDT capsule, ER biphasic 30 -70 20 TAKE ONE CAPSULE BY MOUTH EVERY MORNING MAXIMUM DAILY DOSE = 1 CAPSULE TAKE ONE CAPSULE BY MOUTH EVERY MORNING MAXIMUM DAILY DOSE = 1 CAPSULE SOLD: 08/01/2021 [facility] 12-3 mg 07/31/2021 12:00:00 AM EDT film [address] 1 & 1/2 FILMS UNDER THE TONGUE EVERY DAY MAXIMUM DAILY DOSE = 1 & 1/[address] 1 & 1/2 FILMS UNDER THE TONGUE EVERY DAY MAXIMUM DAILY DOSE = 1 & 1/2 FILMS SOLD: 08/01/2021 [facility] pregabalin 200 MG Oral Capsule [Lyrica] Lyrica 200 MG Lyrica 200 MG 07/28/2021 12:00:00 AM EDT 1.0 {capsule} active L yrica 200 MG eCW1 ([facility]) 200 mg 07/28/2021 12:00:00 AM EDT capsule [...] 1.0 {tablet_immediately_before_bedtime} active Lunesta 2 MG eCW1 ([facility]) Methylphenidate HCl ER (CD) 10 MG Methylphenidate HCl ER (CD ) 10 MG 07/28/2021 12:00:00 AM EDT active Methylph enidate HCl ER (CD) 10 MG eCW1 ([facility]) 2500 MG Testosterone 0.0162 MG/MG Topica l Gel [Androgel] AndroGel 40.5 MG/2.5GM (1.62%) AndroGel 40.5 MG/2.5GM (1.62%) 07/21/2021 12:00:00 AM EDT active AndroGel 40.5 MG/2.5GM (1.62%) e CW1 ([facility]) 0.5 mg 07/21/2021 12:00:00 AM EDT tablet 60 TAKE ONE TABLET BY MOUTH TWICE A DAY NEEDED MAXIMUM DAILY DOSE = 2 TABLETS TAKE ONE TABLET BY MOUTH TWICE A DAY NEEDED MAXIMUM DAILY DOSE = 2 TABLETS SOLD: 07/23/2021 [facility] Lorazepam 0.5 MG Oral Tablet LORazepam 0.5 MG LORazepam 0.5 MG 07/21/2021 12:00:00 AM EDT active LORazepa m 0.5 MG eCW1 ([facility]) 2500 MG Testosterone 0.0162 MG/MG Topica l Gel [Androgel] AndroGel 40.5 MG/2.5GM (1.62%) AndroGel 40.5 MG/2.5GM (1.62%) 07/21/2021 12:00:00 AM EDT active AndroGel 40.5 MG/2.5GM (1.62%) e CW1 ([facility]) Lorazepam 0.5 MG Oral Tablet LORazepam 0.5 MG LORazepam 0.5 MG 07/21/2021 12:00:00 AM EDT active LORazepa m 0.5 MG eCW1 ([facility]) 20.25 mg/1.25 gram (1.62 %) 07/21/2021 12:00:00 AM EDT gel in metered-dose pump 150 APPLY 4 PUMPS TO THE SKIN ONCE D AILY MAXIMUM DAILY DOSE = 4 PUMPS APPLY 4 PUMPS TO THE SKIN ONCE DAILY MAXIMUM DAILY DOSE = 4 PUMPS SOLD: 07/23/2021 [facility] 10 mg 07/03/2021 12:00:00 AM EDT [...] enidate HCl ER (CD) 10 MG eCW1 ([facility]) Methylphenidate HCl ER (CD) 10 MG Methylphenidate HCl ER (CD ) 10 MG 07/01/2021 12:00:00 AM EDT active Methylph enidate HCl ER (CD) 10 MG eCW1 ([facility]) Methylphenidate HCl ER (CD) 10 MG Methylphenidate HCl ER (CD ) 10 MG 07/01/2021 12:00:00 AM EDT active Methylph enidate HCl ER (CD) 10 MG eCW1 ([facility]) 200 mg 06/25/2021 12:00:00 AM EDT capsule [...] active Nitrofurantoin Monohyd Macro 100 MG eCW1 ([facility]) NITROFURANTOIN, MACROCRYSTALS 25 MG / Ni trofurantoin, Monohydrate 75 MG Oral Capsule Nitrofurantoin Monohyd Macro 100 MG Nitrofurantoin Monohyd Macro 100 MG 06/24/2021 12:00:00 AM EDT active Nitrofurantoin Monohyd Macro 100 MG eCW1 ([facility]) NITROFURANTOIN, MACROCRYSTALS 25 MG / Ni trofurantoin, [...] active Nitrofurantoin Monohyd Macro 100 MG eCW1 ([facility]) NITROFURANTOIN, MACROCRYSTALS 25 MG / Ni trofurantoin, Monohydrate 75 MG Oral Capsule Nitrofurantoin Monohyd Macro 100 MG Nitrofurantoin Monohyd Macro 100 MG 06/24/2021 12:00:00 AM EDT active Nitrofurantoin Monohyd Macro 100 MG eCW1 ([facility]) NITROFURANTOIN, MACROCRYSTALS 25 MG / Ni trofurantoin, Monohydrate 75 MG Oral Capsule Nitrofurantoin Monohyd Macro 100 MG Nitrofurantoin Monohyd Macro 100 MG 06/24/2021 12:00:00 AM EDT active Nitrofurantoin Monohyd Macro 100 MG eCW1 ([facility]) 125 mcg 06/23/2021 12:00:00 AM EDT tablet [...] EDT active LORazepa m 0.5 MG eCW1 ([facility]) Lorazepam 0.5 MG Oral Tablet LORazepam 0.5 MG LORazepam 0.5 MG 06/22/2021 12:00:00 AM EDT active LORazepa m 0.5 MG eCW1 ([facility]) pregabalin 200 MG Oral Capsule [Lyrica] Lyrica 200 MG Lyrica 200 MG 06/22/2021 12:00:00 AM EDT 1.0 {capsule} active L yrica 200 MG eCW1 ([facility]) pregabalin 200 MG Oral Capsule [Lyrica] Lyrica 200 MG Lyrica 200 MG 06/22/2021 12:00:00 AM EDT 1.0 {capsule} active L yrica 200 MG eCW1 ([facility]) pregabalin 200 MG Oral Capsule [Lyrica] Lyrica 200 MG Lyrica 200 MG 06/22/2021 12:00:00 AM EDT 1.0 {capsule} active L yrica 200 MG eCW1 ([facility]) pregabalin 200 MG Oral Capsule [Lyrica] Lyrica 200 MG Lyrica 200 MG 06/22/2021 12:00:00 AM EDT 1.0 {capsule} active L yrica 200 MG eCW1 ([facility]) pregabalin 200 MG Oral Capsule [Lyrica] Lyrica 200 MG Lyrica 200 MG 06/22/2021 12:00:00 AM EDT 1.0 {capsule} active L yrica 200 MG eCW1 ([facility]) 0.5 mg 06/22/2021 12:00:00 AM EDT tablet 60 TAKE ONE TABLET BY MOUTH TWICE A DAY NEEDED MAXIMUM DAILY DOSE = 2 TAKE ONE TABLET BY MOUTH TWICE A DAY NEEDED MAXIMUM DAILY DOSE = 2 SOLD: 06/22/2021 [facility] Lorazepam 0.5 MG Oral Tablet LORazepam 0.5 MG LORazepam 0.5 MG 06/22/2021 12:00:00 AM EDT active LORazepa m 0.5 MG eCW1 ([facility]) Lorazepam 0.5 MG Oral Tablet LORazepam 0.5 MG LORazepam 0.5 MG 06/22/2021 12:00:00 AM EDT active LORazepa m 0.5 MG eCW1 ([facility]) 12-3 mg 06/19/2021 12:00:00 AM EDT film 56 PLACE ONE-HALF FILM UNDER THE TONGUE FOUR TIMES A DAY MAXIMUM DAILY DOSE = [address] ONE-HALF FILM UNDER THE TONGUE FOUR TIMES A DAY MAXIMUM DAILY DOSE = 2 FILMS SOLD: 06/21/2021 [facility] Methylphenidate HCl ER (CD) 10 MG Methylphenidate HCl ER (CD ) 10 MG 06/04/2021 12:00:00 AM EDT active Methylph enidate HCl ER (CD) 10 MG eCW1 ([facility]) Methylphenidate HCl ER (CD) 10 MG Methylphenidate HCl ER (CD ) 10 MG 06/04/2021 12:00:00 AM EDT active Methylph enidate HCl ER (CD) 10 MG eCW1 ([facility]) 10 mg 06/04/2021 12:00:00 AM EDT capsule, ER biphasic 30 -70 30 TAKE ONE CAPSULE BY MOUTH EVERY MORNING MAXIMUM DAILY DOSE = 1 CAPSULE TAKE ONE CAPSULE BY MOUTH EVERY MORNING MAXIMUM DAILY DOSE = 1 CAPSULE SOLD: 06/04/2021 [facility] Methylphenidate HCl ER (CD) 10 MG Methylphenidate HCl ER (CD ) 10 MG 06/04/2021 12:00:00 AM EDT active Methylph enidate HCl ER (CD) 10 MG eCW1 ([facility]) 20.25 mg/1.25 gram (1.62 %) 06/01/2021 12:00:00 AM EDT gel in metered-dose pump 150 APPLY 4 PUMPS TO THE SKIN ONCE D AILY MAXIMUM DAILY DOSE = 4 PUMPS APPLY 4 PUMPS TO THE SKIN ONCE DAILY MAXIMUM DAILY DOSE = 4 PUMPS SOLD: 06/02/2021 [facility] 2500 MG Testosterone 0.0162 MG/MG Topica l Gel [Androgel] AndroGel 40.5 MG/2.5GM (1.62%) AndroGel 40.5 MG/2.5GM (1.62%) 06/01/2021 12:00:00 AM EDT active AndroGel 40.5 MG/2.5GM (1.62%) e CW1 ([facility]) 2500 MG Testosterone 0.0162 MG/MG Topica l Gel [Androgel] AndroGel 40.5 MG/2.5GM (1.62%) AndroGel 40.5 MG/2.5GM (1.62%) 06/01/2021 12:00:00 AM EDT active AndroGel 40.5 MG/2.5GM (1.62%) e CW1 ([facility]) 2500 MG Testosterone 0.0162 MG/MG Topica l Gel [Androgel] AndroGel 40.5 MG/2.5GM (1.62%) AndroGel 40.5 MG/2.5GM (1.62%) 06/01/2021 12:00:00 AM EDT active AndroGel 40.5 MG/2.5GM (1.62%) e CW1 ([facility]) 2500 MG Testosterone 0.0162 MG/MG Topica l Gel [Androgel] AndroGel 40.5 MG/2.5GM (1.62%) AndroGel 40.5 MG/2.5GM (1.62%) 06/01/2021 12:00:00 AM EDT active eCW1 ([facility]) 2500 MG Testosterone 0.0162 MG/MG Topica l Gel [Androgel] AndroGel 40.5 MG/2.5GM (1.62%) AndroGel 40.5 MG/2.5GM (1.62%) 06/01/2021 12:00:00 AM EDT active AndroGel 40.5 MG/2.5GM (1.62%) e CW1 ([facility]) 2500 MG Testosterone 0.0162 MG/MG Topica l Gel [Androgel] AndroGel 40.5 MG/2.5GM (1.62%) AndroGel 40.5 MG/2.5GM (1.62%) 06/01/2021 12:00:00 AM EDT active AndroGel 40.5 MG/2.5GM (1.62%) e CW1 ([facility]) 200 mg 05/26/2021 12:00:00 AM EDT capsule [...] 12:00:00 AM EDT 1.0 {tablet_as_needed} active eCW1 ([facility]) sildenafil 50 MG Oral Tablet [Viagra] Viagra 50 MG Viagra 50 MG 05/05/2021 12:00:00 AM EDT 1.0 {tablet_as_needed} active Viagra 50 MG eCW1 ([facility]) sildenafil 50 MG Oral Tablet [Viagra] Viagra 50 MG Viagra 50 MG 05/05/2021 12:00:00 AM EDT 1.0 {tablet_as_needed} active Viagra 50 MG eCW1 ([facility]) sildenafil 50 MG Oral Tablet [Viagra] Viagra 50 MG Viagra 50 MG 05/05/2021 12:00:00 AM EDT 1.0 {tablet_as_needed} active Viagra 50 MG eCW1 ([facility]) sildenafil 50 MG Oral Tablet [Viagra] Viagra 50 MG Viagra 50 MG 05/05/2021 12:00:00 AM EDT 1.0 {tablet_as_needed} active Viagra 50 MG eCW1 ([facility]) sildenafil 50 MG Oral Tablet [Viagra] Viagra 50 MG Viagra 50 MG 05/05/2021 12:00:00 AM EDT 1.0 {tablet_as_needed} active Viagra 50 MG eCW1 ([facility]) sildenafil 50 MG Oral Tablet [Viagra] Viagra 50 MG Viagra 50 MG 05/05/2021 12:00:00 AM EDT 1.0 {tablet_as_needed} active Viagra 50 MG eCW1 ([facility]) sildenafil 50 MG Oral Tablet [Viagra] Viagra 50 MG Viagra 50 MG 05/05/2021 12:00:00 AM EDT 1.0 {tablet_as_needed} active Viagra 50 MG eCW1 ([facility]) sildenafil 50 MG Oral Tablet [Viagra] Viagra 50 MG Viagra 50 MG 05/05/2021 12:00:00 AM EDT 1.0 {tablet_as_needed} active Viagra 50 MG eCW1 ([facility]) Methylphenidate HCl ER (CD) 10 MG Methylphenidate HCl ER (CD ) 10 MG 05/05/2021 12:00:00 AM EDT active Methylph enidate HCl ER (CD) 10 MG eCW1 ([facility]) Methylphenidate HCl ER (CD) 10 MG Methylphenidate HCl ER (CD ) 10 MG 05/05/2021 12:00:00 AM EDT active Methylph enidate HCl ER (CD) 10 MG eCW1 ([facility]) 10 mg 05/05/2021 12:00:00 AM EDT capsule, ER biphasic 30 -70 30 TAKE ONE CAPSULE BY MOUTH EVERY MORNING MAXIMUM DAILY DOSE = 1 TAKE ONE CAPSULE BY MOUTH EVERY MORNING MAXIMUM DAILY DOSE = 1 SOLD: 05/05/2021 [facility] sildenafil 50 MG Oral Tablet [Viagra] Viagra 50 MG Viagra 50 MG 05/05/2021 12:00:00 AM EDT 1.0 {tablet_as_needed} active Viagra 50 MG eCW1 ([facility]) Methylphenidate HCl ER (CD) 10 MG Methylphenidate HCl ER (CD ) 10 MG 05/05/2021 12:00:00 AM EDT active Methylph enidate HCl ER (CD) 10 MG eCW1 ([facility]) sildenafil 50 MG Oral Tablet [Viagra] Viagra 50 MG Viagra 50 MG 05/05/2021 12:00:00 AM EDT 1.0 {tablet_as_needed} active Viagra 50 MG eCW1 ([facility]) sildenafil 50 MG Oral Tablet [Viagra] Viagra 50 MG Viagra 50 MG 05/05/2021 12:00:00 AM EDT 1.0 {tablet_as_needed} active Viagra 50 MG eCW1 ([facility]) sildenafil 50 MG Oral Tablet [Viagra] Viagra 50 MG Viagra 50 MG 05/05/2021 12:00:00 AM EDT 1.0 {tablet_as_needed} active Viagra 50 MG eCW1 ([facility]) Methylphenidate HCl ER (CD) 10 MG Methylphenidate HCl ER (CD ) 10 MG 05/05/2021 12:00:00 AM EDT active Methylph enidate HCl ER (CD) 10 MG eCW1 ([facility]) Methylphenidate HCl ER (CD) 10 MG Methylphenidate HCl ER (CD ) 10 MG 05/05/2021 12:00:00 AM EDT active Methylph enidate HCl ER (CD) 10 MG eCW1 ([facility]) Methylphenidate HCl ER (CD) 10 MG Methylphenidate HCl ER (CD ) 10 MG 05/05/2021 12:00:00 AM EDT active e CW1 ([facility]) sildenafil 50 MG Oral Tablet [Viagra] Viagra 50 MG Viagra 50 MG 05/05/2021 12:00:00 AM EDT 1.0 {tablet_as_needed} active Viagra 50 MG eCW1 ([facility]) Methylphenidate HCl ER (CD) 10 MG Methylphenidate HCl ER (CD ) 10 MG 05/05/2021 12:00:00 AM EDT active Methylph enidate HCl ER (CD) 10 MG eCW1 ([facility]) Methylphenidate HCl ER (CD) 10 MG Methylphenidate HCl ER (CD ) 10 MG 05/05/2021 12:00:00 AM EDT active Methylph enidate HCl ER (CD) 10 MG eCW1 ([facility]) sildenafil 50 MG Oral Tablet [Viagra] Viagra 50 MG Viagra 50 MG 05/05/2021 12:00:00 AM EDT 1.0 {tablet_as_needed} active Viagra 50 MG eCW1 ([facility]) Methylphenidate HCl ER (CD) 10 MG Methylphenidate HCl ER (CD ) 10 MG 04/28/2021 12:00:00 AM EDT active Methylph enidate HCl ER (CD) 10 MG eCW1 ([facility]) 200 mg 04/24/2021 12:00:00 AM EDT capsule [...] active Met hylphenidate HCl 5 MG eCW1 ([facility]) Methylphenidate Hydrochloride 5 MG Oral Tablet Methylp henidate HCl 5 MG Methylphenidate HCl 5 MG 04/20/2021 12:00:00 AM EDT 1.0 {tablet_on_an_empty_stomach} active Met hylphenidate HCl 5 MG eCW1 ([facility]) Methylphenidate Hydrochloride 5 MG Oral Tablet Methylp henidate HCl 5 MG Methylphenidate HCl 5 MG 04/20/2021 12:00:00 AM EDT 1.0 {tablet_on_an_empty_stomach} active Met hylphenidate HCl 5 MG eCW1 ([facility]) 5 mg 04/20/2021 12:00:00 AM EDT tablet [...] DAILY DOSE = 1 TABLET SOLD: 04/17/2021 [facility] 20.25 mg/1.25 gram (1.62 %) 04/11/2021 12:00:00 AM EDT gel in metered-dose pump 150 APPLY 4 PUMPS ONCE A DAY MAXIMUM DAILY DOSE = 4 PUMPS APPLY 4 PUMPS ONCE A DAY MAXIMUM DAILY DOSE = 4 PUMPS SOLD: 04/17/2021 [facility] 0.5 mg 03/31/2021 12:00:00 AM EDT tablet 60 TAKE ONE TABLET BY MOUTH TWICE A DAY NEEDED MAXIMUM DAILY DOSE = 2 TABLETS TAKE ONE TABLET BY MOUTH TWICE A DAY NEEDED MAXIMUM DAILY DOSE = 2 TABLETS SOLD: 03/31/2021 [facility] 200 mg 2021 12:00:00 AM EDT capsule 60 TAKE ONE CAPSULE BY MOUTH TWICE A DAY MAXIMUM DAILY DOSE = 2 CAPSULES TAKE ONE CAPSULE BY MOUTH TWICE A DAY MAXIMUM DAILY DOSE = 2 CAPSULES SOLD: 2021 [facility] 12-3 mg 03/19/2021 12:00:00 AM EDT film [address] ONE-HALF FILM UNDER THE TONGUE FOUR TIMES A DAY MAXIMUM DAILY DOSE = [address] ONE-HALF FILM UNDER THE TONGUE FOUR TIMES A DAY MAXIMUM DAILY DOSE = 2 FILMS SOLD: 03/23/2021 [facility] 10 mg 03/13/2021 12:00:00 AM EDT capsule, ER biphasic 30 -70 30 TAKE ONE CAPSULE BY MOUTH EVERY MORNING MAXIMUM DAILY DOSE = 1 CAP TAKE ONE CAPSULE BY MOUTH EVERY MORNING MAXIMUM DAILY DOSE = 1 CAP SOLD: 03/13/2021 [facility] Methylphenidate HCl ER (CD) 10 MG Methylphenidate HCl ER (CD ) 10 MG 03/13/2021 12:00:00 AM EDT active Methylph enidate HCl ER (CD) 10 MG eCW1 ([facility]) Methylphenidate HCl ER (CD) 10 MG Methylphenidate HCl ER (CD ) 10 MG 03/13/2021 12:00:00 AM EDT active e CW1 ([facility]) Methylphenidate HCl ER (CD) 10 MG Methylphenidate HCl ER (CD ) 10 MG 03/13/2021 12:00:00 AM EDT active Methylph enidate HCl ER (CD) 10 MG eCW1 ([facility]) Methylphenidate HCl ER (CD) 10 MG Methylphenidate HCl ER (CD ) 10 MG 03/13/2021 12:00:00 AM EDT active Methylph enidate HCl ER (CD) 10 MG eCW1 ([facility]) 5 mg 03/06/2021 12:00:00 AM EDT tablet 60 TAKE ONE TABLET BY MOUTH TWICE A DAY ON AN EMPTY STOMACH MAXIMUM DAILY DOSE = 2 TABLETS TAKE ONE TABLET BY MOUTH TWICE A DAY ON AN EMPTY STOMACH MAXIMUM DAILY DOSE = 2 TABLETS SOLD: 03/06/2021 [facility] Methylphenidate Hydrochloride 5 MG Oral Tablet Methylp henidate HCl 5 MG Methylphenidate HCl 5 MG 03/03/2021 12:00:00 AM EDT 1.0 {tablet_on_an_empty_stomach} active Met hylphenidate HCl 5 MG eCW1 ([facility]) Eszopiclone 2 MG Oral Tablet ESZOPICLONE 02/27/2021 12:00:00 AM EDT ta blet 30 TAKE ONE TABLET BY MOUTH IMMEDIATELY BEFORE BEDTIME - MAXIMUM DAILY DOSE = 1 TABLET TAKE ONE TABLET BY MOUTH IMMEDIATELY BEF ORE BEDTIME - MAXIMUM DAILY DOSE = 1 TABLET SOLD: 03/01/2021 [facility] 20.25 mg/1.25 gram (1.62 %) 02/24/2021 12:00:00 AM EDT gel in metered-dose pump 150 APPLY 4 PUMPS TO THE SKIN ONCE D AILY MAXIMUM DAILY DOSE = 4 PUMPS APPLY 4 PUMPS TO THE SKIN ONCE DAILY MAXIMUM DAILY DOSE = 4 PUMPS SOLD: 03/01/2021 [facility] 500 mg 02/21/2021 12:00:00 AM EDT tablet,delayed release (DR/EC) 180 TAKE ONE TABLET BY MOUTH ONCE DAILY FOR 7 DAYS THEN TAKE ONE TABLET TWICE A DAY TAKE ONE TABLET BY MOUTH ONCE DAILY FOR 7 DAYS THEN TAKE ONE TABLET TWICE A DAY SOLD: 02/21/2021 [facility] 12-3 mg 02/19/2021 12:00:00 AM EDT [...] {tablet} active S ulfasalazine 500 MG eCW1 ([facility]) Sulfasalazine 500 MG Delayed Release Oral Tablet Sulfasalazi ne 500 MG 02/17/2021 12:00:00 AM EDT 1.0 {tablet} active S ulfasalazine 500 MG eCW1 ([facility]) Sulfasalazine 500 MG Delayed Release Oral Tablet sulfa SALAzine 500 MG sulfaSALAzine 500 MG 02/17/2021 12:00:00 AM EDT 1.0 {tablet} active sulfaSALAzine 500 MG eCW1 ([facility]) Sulfasalazine 500 MG Delayed Release Oral Tablet sulfa SALAzine 500 MG sulfaSALAzine 500 MG 02/17/2021 12:00:00 AM EDT 1.0 {tablet} active sulfaSALAzine 500 MG eCW1 ([facility]) Sulfasalazine 500 MG Delayed Release Oral Tablet Sulfasalazi ne 500 MG 02/17/2021 12:00:00 AM EDT 1.0 {tablet} active S ulfasalazine 500 MG eCW1 ([facility]) Sulfasalazine 500 MG Delayed Release Oral Tablet sulfa SALAzine 500 MG sulfaSALAzine 500 MG 02/17/2021 12:00:00 AM EDT 1.0 {tablet} active sulfaSALAzine 500 MG eCW1 ([facility]) Sulfasalazine 500 MG Delayed Release Oral Tablet sulfa SALAzine 500 MG sulfaSALAzine 500 MG 02/17/2021 12:00:00 AM EDT 1.0 {tablet} active sulfaSALAzine 500 MG eCW1 ([facility]) Sulfasalazine 500 MG Delayed Release Oral Tablet sulfa SALAzine 500 MG sulfaSALAzine 500 MG 02/17/2021 12:00:00 AM EDT 1.0 {tablet} active sulfaSALAzine 500 MG eCW1 ([facility]) Sulfasalazine 500 MG Delayed Release Oral Tablet sulfa SALAzine 500 MG sulfaSALAzine 500 MG 02/17/2021 12:00:00 AM EDT 1.0 {tablet} active sulfaSALAzine 500 MG eCW1 ([facility]) Sulfasalazine 500 MG Delayed Release Oral Tablet sulfa SALAzine 500 MG sulfaSALAzine 500 MG 02/17/2021 12:00:00 AM EDT 1.0 {tablet} active sulfaSALAzine 500 MG eCW1 ([facility]) Sulfasalazine 500 MG Delayed Release Oral Tablet sulfa SALAzine 500 MG sulfaSALAzine 500 MG 02/17/2021 12:00:00 AM EDT 1.0 {tablet} active sulfaSALAzine 500 MG eCW1 ([facility]) Sulfasalazine 500 MG Delayed Release Oral Tablet sulfa SALAzine 500 MG sulfaSALAzine 500 MG 02/17/2021 12:00:00 AM EDT 1.0 {tablet} active eCW1 ([facility]) Sulfasalazine 500 MG Delayed Release Oral Tablet sulfa SALAzine 500 MG sulfaSALAzine 500 MG 02/17/2021 12:00:00 AM EDT 1.0 {tablet} active sulfaSALAzine 500 MG eCW1 ([facility]) Sulfasalazine 500 MG Delayed Release Oral Tablet sulfa SALAzine 500 MG sulfaSALAzine 500 MG 02/17/2021 12:00:00 AM EDT 1.0 {tablet} active sulfaSALAzine 500 MG eCW1 ([facility]) Sulfasalazine 500 MG Delayed Release Oral Tablet Sulfasalazi ne 500 MG 02/17/2021 12:00:00 AM EDT 1.0 {tablet} active S ulfasalazine 500 MG eCW1 ([facility]) Sulfasalazine 500 MG Delayed Release Oral Tablet sulfa SALAzine 500 MG sulfaSALAzine 500 MG 02/17/2021 12:00:00 AM EDT 1.0 {tablet} active sulfaSALAzine 500 MG eCW1 ([facility]) Sulfasalazine 500 MG Delayed Release Oral Tablet Sulfasalazi ne 500 MG 02/17/2021 12:00:00 AM EDT 1.0 {tablet} active eCW1 ([facility]) Sulfasalazine 500 MG Delayed Release Oral Tablet Sulfasalazi ne 500 MG 02/17/2021 12:00:00 AM EDT 1.0 {tablet} active S ulfasalazine 500 MG eCW1 ([facility]) Sulfasalazine 500 MG Delayed Release Oral Tablet sulfa SALAzine 500 MG sulfaSALAzine 500 MG 02/17/2021 12:00:00 AM EDT 1.0 {tablet} active sulfaSALAzine 500 MG eCW1 ([facility]) Sulfasalazine 500 MG Delayed Release Oral Tablet Sulfasalazi ne 500 MG 02/17/2021 12:00:00 AM EDT 1.0 {tablet} active S ulfasalazine 500 MG eCW1 ([facility]) Sulfasalazine 500 MG Delayed Release Oral Tablet sulfa SALAzine 500 MG sulfaSALAzine 500 MG 02/17/2021 12:00:00 AM EDT 1.0 {tablet} active sulfaSALAzine 500 MG eCW1 ([facility]) Sulfasalazine 500 MG Delayed Release Oral Tablet sulfa SALAzine 500 MG sulfaSALAzine 500 MG 02/17/2021 12:00:00 AM EDT 1.0 {tablet} active sulfaSALAzine 500 MG eCW1 ([facility]) Sulfasalazine 500 MG Delayed Release Oral Tablet sulfa SALAzine 500 MG sulfaSALAzine 500 MG 02/17/2021 12:00:00 AM EDT 1.0 {tablet} active sulfaSALAzine 500 MG eCW1 ([facility]) Sulfasalazine 500 MG Delayed Release Oral Tablet Sulfasalazi ne 500 MG 02/17/2021 12:00:00 AM EDT 1.0 {tablet} active S ulfasalazine 500 MG eCW1 ([facility]) Sulfasalazine 500 MG Delayed Release Oral Tablet sulfa SALAzine 500 MG sulfaSALAzine 500 MG 02/17/2021 12:00:00 AM EDT 1.0 {tablet} active sulfaSALAzine 500 MG eCW1 ([facility]) Sulfasalazine 500 MG Delayed Release Oral Tablet sulfa SALAzine 500 MG sulfaSALAzine 500 MG 02/17/2021 12:00:00 AM EDT 1.0 {tablet} active sulfaSALAzine 500 MG eCW1 ([facility]) Sulfasalazine 500 MG Delayed Release Oral Tablet sulfa SALAzine 500 MG sulfaSALAzine 500 MG 02/17/2021 12:00:00 AM EDT 1.0 {tablet} active sulfaSALAzine 500 MG eCW1 ([facility]) Sulfasalazine 500 MG Delayed Release Oral Tablet Sulfasalazi ne 500 MG 02/17/2021 12:00:00 AM EDT 1.0 {tablet} active S ulfasalazine 500 MG eCW1 ([facility]) Sulfasalazine 500 MG Delayed Release Oral Tablet sulfa SALAzine 500 MG sulfaSALAzine 500 MG 02/17/2021 12:00:00 AM EDT 1.0 {tablet} active sulfaSALAzine 500 MG eCW1 ([facility]) Sulfasalazine 500 MG Delayed Release Oral Tablet sulfa SALAzine 500 MG sulfaSALAzine 500 MG 02/17/2021 12:00:00 AM EDT 1.0 {tablet} active sulfaSALAzine 500 MG eCW1 ([facility]) Methylphenidate Hydrochloride 5 MG Oral Tablet Methylp henidate HCl 5 MG Methylphenidate HCl 5 MG 02/05/2021 12:00:00 AM EDT 1.0 {tablet_on_an_empty_stomach} active Met hylphenidate HCl 5 MG eCW1 ([facility]) Methylphenidate Hydrochloride 5 MG Oral Tablet Methylp henidate HCl 5 MG Methylphenidate HCl 5 MG 02/05/2021 12:00:00 AM EDT 1.0 {tablet_on_an_empty_stomach} active Met hylphenidate HCl 5 MG eCW1 ([facility]) Methylphenidate Hydrochloride 5 MG Oral Tablet Methylp henidate HCl 5 MG Methylphenidate HCl 5 MG 02/05/2021 12:00:00 AM EDT 1.0 {tablet_on_an_empty_stomach} active Met hylphenidate HCl 5 MG eCW1 ([facility]) 5 mg 02/05/2021 12:00:00 AM EDT tablet 60 TAKE ONE TABLET BY MOUTH TWICE A DAY ON AN EMPTY STOMACH MAXIMUM DAILY DOSE = 2 TAKE ONE TABLET BY MOUTH TWICE A DAY ON AN EMPTY STOMACH MAXIMUM DAILY DOSE = 2 SOLD: 02/05/2021 [facility] Methylphenidate Hydrochloride 5 MG Oral Tablet Methylp henidate HCl 5 MG Methylphenidate HCl 5 MG 02/05/2021 12:00:00 AM EDT 1.0 {tablet_on_an_empty_stomach} active Met hylphenidate HCl 5 MG eCW1 ([facility]) Methylphenidate Hydrochloride 5 MG Oral Tablet Methylp henidate HCl 5 MG Methylphenidate HCl 5 MG 02/05/2021 12:00:00 AM EDT 1.0 {tablet_on_an_empty_stomach} active Met hylphenidate HCl 5 MG eCW1 ([facility]) Methylphenidate Hydrochloride 5 MG Oral Tablet Methylp henidate HCl 5 MG Methylphenidate HCl 5 MG 02/05/2021 12:00:00 AM EDT 1.0 {tablet_on_an_empty_stomach} active Met hylphenidate HCl 5 MG eCW1 ([facility]) Eszopiclone 2 MG Oral Tablet ESZOPICLONE 01/28/2021 [...] DAILY DOSE = 2 CAPSULES SOLD: 01/21/2021 [facility] 12-3 mg 01/20/2021 12:00:00 AM EDT film 56 PLACE ONE-HALF FILM UNDER THE TONGUE FOUR TIMES A DAY MAXIMUM DAILY DOSE = [address] ONE-HALF FILM UNDER THE TONGUE FOUR TIMES A DAY MAXIMUM DAILY DOSE = 2 FILMS SOLD: 01/20/2021 [facility] Methylphenidate Hydrochloride 5 MG Oral Tablet Methylp henidate HCl 5 MG Methylphenidate HCl 5 MG 01/07/2021 12:00:00 AM EST 1.0 {tablet_on_an_empty_stomach} active Met hylphenidate HCl 5 MG eCW1 ([facility]) 5 mg 01/07/2021 12:00:00 AM EST tablet 60 TAKE ONE TABLET BY MOUTH TWICE A DAY EMPTY STOMACH MAXIMUM DAILY DOSE = 2 TAKE ONE TABLET BY MOUTH TWICE A DAY EMPTY STOMACH MAXIMUM DAILY DOSE = 2 SOLD: 01/07/2021 [facility] Methylphenidate Hydrochloride 5 MG Oral Tablet Methylp henidate HCl 5 MG Methylphenidate HCl 5 MG 01/07/2021 12:00:00 AM EST 1.0 {tablet_on_an_empty_stomach} active Met hylphenidate HCl 5 MG eCW1 ([facility]) Methylphenidate Hydrochloride 5 MG Oral Tablet Methylp henidate HCl 5 MG Methylphenidate HCl 5 MG 01/07/2021 12:00:00 AM EST 1.0 {tablet_on_an_empty_stomach} active Met hylphenidate HCl 5 MG eCW1 ([facility]) Methylphenidate Hydrochloride 5 MG Oral Tablet Methylp henidate HCl 5 MG Methylphenidate HCl 5 MG 01/07/2021 12:00:00 AM EST 1.0 {tablet_on_an_empty_stomach} active Met hylphenidate HCl 5 MG eCW1 ([facility]) 125 mcg 01/01/2021 12:00:00 AM EST tablet [...] active Met hylphenidate HCl 5 MG eCW1 ([facility]) Methylphenidate Hydrochloride 5 MG Oral Tablet Methylp henidate HCl 5 MG Methylphenidate HCl 5 MG 12/12/2020 12:00:00 AM EST 1.0 {tablet_on_an_empty_stomach} active Met hylphenidate HCl 5 MG eCW1 ([facility]) Methylphenidate Hydrochloride 5 MG Oral Tablet Methylp henidate HCl 5 MG Methylphenidate HCl 5 MG 12/12/2020 12:00:00 AM EST 1.0 {tablet_on_an_empty_stomach} active Met hylphenidate HCl 5 MG eCW1 ([facility]) 5 mg 12/12/2020 12:00:00 AM EST tablet [...] active Met hylphenidate HCl 5 MG eCW1 ([facility]) Methylphenidate Hydrochloride 5 MG Oral Tablet Methylp henidate HCl 5 MG Methylphenidate HCl 5 MG 12/12/2020 12:00:00 AM EST 1.0 {tablet_on_an_empty_stomach} active Met hylphenidate HCl 5 MG eCW1 ([facility]) Methylphenidate Hydrochloride 5 MG Oral Tablet Methylp henidate HCl 5 MG Methylphenidate HCl 5 MG 12/12/2020 12:00:00 AM EST 1.0 {tablet_on_an_empty_stomach} active Met hylphenidate HCl 5 MG eCW1 ([facility]) Methylphenidate Hydrochloride 5 MG Oral Tablet Methylp henidate HCl 5 MG Methylphenidate HCl 5 MG 12/12/2020 12:00:00 AM EST 1.0 {tablet_on_an_empty_stomach} active Met hylphenidate HCl 5 MG eCW1 ([facility]) 8 mg 12/09/2020 12:00:00 AM EST tablet, [...] AM EST active Voltaren 1 % eCW1 ([facility]) Diclofenac Sodium 0.01 MG/MG Topical Gel [[facility]] Voltaren 1 % Vol[facility] 1 % 12/02/2020 12:00:00 AM EST active Voltaren 1 % eCW1 ([facility]) Voltaren 1 % UNK 12/02/2020 12:00:00 AM EST activ e Voltaren 1 % eCW1 ([facility]) Diclofenac Sodium 0.01 MG/MG Topical Gel [[facility]] Voltaren 1 % Voltaren 1 % 12/02/2020 12:00:00 AM EST active Voltaren 1 % eCW1 ([facility]) Diclofenac Sodium 0.01 MG/MG Topical Gel [[facility]] Voltaren 1 % Voltaren 1 % 12/02/2020 12:00:00 AM EST active Voltaren 1 % eCW1 ([facility]) Diclofenac Sodium 0.01 MG/MG Topical Gel [[facility]] Voltaren 1 % Voltaren 1 % 12/02/2020 12:00:00 AM EST active Voltaren 1 % eCW1 ([facility]) Diclofenac Sodium 0.01 MG/MG Topical Gel [[facility]] Voltaren 1 % Voltaren 1 % 12/02/2020 12:00:00 AM EST active eCW1 ([facility]) Diclofenac Sodium 0.01 MG/MG Topical Gel [[facility]] Voltaren 1 % Voltaren 1 % 12/02/2020 12:00:00 AM EST active Voltaren 1 % eCW1 ([facility]) Diclofenac Sodium 0.01 MG/MG Topical Gel [[facility]] Voltaren 1 % Voltaren 1 % 12/02/2020 12:00:00 AM EST active Voltaren 1 % eCW1 ([facility]) Diclofenac Sodium 0.01 MG/MG Topical Gel [Vol[facility]] Voltaren 1 % Voltaren 1 % 12/02/2020 12:00:00 AM EST active Voltaren 1 % eCW1 ([facility]) Voltaren 1 % UNK 12/02/2020 12:00:00 AM EST activ e Voltaren 1 % eCW1 ([facility]) Diclofenac Sodium 0.01 MG/MG Topical Gel [[facility]] Voltaren 1 % Voltaren 1 % 12/02/2020 12:00:00 AM EST active Voltaren 1 % eCW1 ([facility]) Diclofenac Sodium 0.01 MG/MG Topical Gel [[facility]] Voltaren 1 % Voltaren 1 % 12/02/2020 12:00:00 AM EST active Voltaren 1 % eCW1 ([facility]) Diclofenac Sodium 0.01 MG/MG Topical Gel [[facility]] Voltaren 1 % Voltaren 1 % 12/02/2020 12:00:00 AM EST active Voltaren 1 % eCW1 ([facility]) Diclofenac Sodium 0.01 MG/MG Topical Gel [Vol[facility]ren] Voltaren 1 % Voltaren 1 % 12/02/2020 12:00:00 AM EST active Voltaren 1 % eCW1 ([facility]) Voltaren 1 % UNK 12/02/2020 12:00:00 AM EST activ e Voltaren 1 % eCW1 ([facility]) Diclofenac Sodium 0.01 MG/MG Topical Gel [Voltaren] Voltaren 1 % Voltaren 1 % 12/02/2020 12:00:00 AM EST active Voltaren 1 % eCW1 ([facility]) Voltaren 1 % UNK 12/02/2020 12:00:00 AM EST activ e Voltaren 1 % eCW1 ([facility]) Diclofenac Sodium 0.01 MG/MG Topical Gel [Vol[facility]ren] Voltaren 1 % Voltaren 1 % 12/02/2020 12:00:00 AM EST active Voltaren 1 % eCW1 ([facility]) Diclofenac Sodium 0.01 MG/MG Topical Gel [Vol[facility]ren] Voltaren 1 % Voltaren 1 % 12/02/2020 12:00:00 AM EST active Voltaren 1 % eCW1 ([facility]) Voltaren 1 % UNK 12/02/2020 12:00:00 AM EST activ e Voltaren 1 % eCW1 ([facility]) Diclofenac Sodium 0.01 MG/MG Topical Gel [Vol[facility]ren] Voltaren 1 % Voltaren 1 % 12/02/2020 12:00:00 AM EST active Voltaren 1 % eCW1 ([facility]) Diclofenac Sodium 0.01 MG/MG Topical Gel [Voltaren] Voltaren 1 % Voltaren 1 % 12/02/2020 12:00:00 AM EST active eCW1 ([facility]) Voltaren 1 % UNK 12/02/2020 12:00:00 AM EST activ e Voltaren 1 % eCW1 ([facility]) 8-2 mg 12/02/2020 12:00:00 AM EST film 56 DISSOLVE 1/2 FILM UNDER THE TONGUE FOUR TIMES A DAY FOR PAIN MAXIMUM DAILY DOSE = 2 DISSOLVE 1/2 FILM UNDER THE TONGUE FOUR TIMES A DAY FOR PAIN MAXIMUM DAILY DOSE = 2 SOLD: 12/02/2020 [facility] Voltaren 1 % UNK 12/02/2020 12:00:00 AM EST activ e Voltaren 1 % eCW1 ([facility]) Diclofenac Sodium 0.01 MG/MG Topical Gel [Voltaren] Voltaren 1 % Voltaren 1 % 12/02/2020 12:00:00 AM EST active Voltaren 1 % eCW1 ([facility]) Diclofenac Sodium 0.01 MG/MG Topical Gel [Vol[facility]] Voltaren 1 % Voltaren 1 % 12/02/2020 12:00:00 AM EST active Voltaren 1 % eCW1 ([facility]) Diclofenac Sodium 0.01 MG/MG Topical Gel [Vol[facility]] Voltaren 1 % Voltaren 1 % 12/02/2020 12:00:00 AM EST active Voltaren 1 % eCW1 ([facility]) Diclofenac Sodium 0.01 MG/MG Topical Gel [Vol[facility]] Voltaren 1 % Vol[facility]ren 1 % 12/02/2020 12:00:00 AM EST active Voltaren 1 % eCW1 ([facility]) Diclofenac Sodium 0.01 MG/MG Topical Gel [Vol[facility]] Voltaren 1 % Voltaren 1 % 12/02/2020 12:00:00 AM EST active Voltaren 1 % eCW1 ([facility]) Diclofenac Sodium 0.01 MG/MG Topical Gel [Vol[facility]] Voltaren 1 % Voltaren 1 % 12/02/2020 12:00:00 AM EST active Voltaren 1 % eCW1 ([facility]) Diclofenac Sodium 0.01 MG/MG Topical Gel [Vol[facility]ren] Voltaren 1 % Voltaren 1 % 12/02/2020 12:00:00 AM EST active Voltaren 1 % eCW1 ([facility]) Diclofenac Sodium 0.01 MG/MG Topical Gel [Vol[facility]] Voltaren 1 % Voltaren 1 % 12/02/2020 12:00:00 AM EST active Voltaren 1 % eCW1 ([facility]) Diclofenac Sodium 0.01 MG/MG Topical Gel [[facility]] Voltaren 1 % Voltaren 1 % 12/02/2020 12:00:00 AM EST active Voltaren 1 % eCW1 ([facility]) Diclofenac Sodium 0.01 MG/MG Topical Gel [Vol[facility]] Voltaren 1 % Voltaren 1 % 12/02/2020 12:00:00 AM EST active Voltaren 1 % eCW1 ([facility]) Diclofenac Sodium 0.01 MG/MG Topical Gel [Vol[facility]] Voltaren 1 % Voltaren 1 % 12/02/2020 12:00:00 AM EST active Voltaren 1 % eCW1 ([facility]) Diclofenac Sodium 0.01 MG/MG Topical Gel [[facility]] Voltaren 1 % Voltaren 1 % 12/02/2020 12:00:00 AM EST active Voltaren 1 % eCW1 ([facility]) Diclofenac Sodium 0.01 MG/MG Topical Gel [[facility]] Voltaren 1 % Vol[facility]ren 1 % 12/02/2020 12:00:00 AM EST active Voltaren 1 % eCW1 ([facility]) 1 % 12/02/2020 12:00:00 AM EST gel [...] AM EST active Voltaren 1 % eCW1 ([facility]) Diclofenac Sodium 0.01 MG/MG Topical Gel [[facility]] Voltaren 1 % Vol[facility]ren 1 % 12/02/2020 12:00:00 AM EST active Voltaren 1 % eCW1 ([facility]) Diclofenac Sodium 0.01 MG/MG Topical Gel [[facility]] Voltaren 1 % Voltaren 1 % 12/02/2020 12:00:00 AM EST active Voltaren 1 % eCW1 ([facility]) Voltaren 1 % UNK 12/02/2020 12:00:00 AM EST activ e Voltaren 1 % eCW1 ([facility]) 0.5 mg 11/27/2020 12:00:00 AM EST tablet 60 TAKE ONE TABLET BY MOUTH TWICE A DAY NEEDED MAXIMUM DAILY DOSE = 2 TAKE ONE TABLET BY MOUTH TWICE A DAY NEEDED MAXIMUM DAILY DOSE = 2 SOLD: 11/28/2020 [facility] 200 mg 11/27/2020 12:00:00 AM EST capsule 60 TAKE ONE CAPSULE BY MOUTH TWICE A DAY TAKE ONE CAPSULE BY MOUTH TWICE A DAY SOLD: 11/28/2020 [facility] Eszopiclone 2 MG Oral Tablet ESZOPICLONE 11/27/2020 12:00:00 AM EST ta blet 30 TAKE ONE TABLET BY MOUTH EVERY DAY IMMEDIATELY BEFORE BEDTIME MAXIMUM DAILY DOSE = 1 TAKE ONE TABLET BY MOUTH EVERY DAY IMMED IATELY BEFORE BEDTIME MAXIMUM DAILY DOSE = 1 SOLD: 11/28/2020 [facility] 20.25 mg/1.25 gram (1.62 %) 11/05/2020 12:00:00 AM EST gel in metered-dose pump 150 APPLY 4 PUMPS ONCE DAILY MAXIMUM DAILY DOSE = 4 PUMPS APPLY 4 PUMPS ONCE DAILY MAXIMUM DAILY DOSE = 4 PUMPS SOLD: 11/11/2020 [facility] 12-3 mg 11/04/2020 12:00:00 AM EST film [address]ACE ONE HALF FILM UNDER THE TONGUE FOUR TIMES A DAY MAXIMUM DAILY DOSE = [address] ONE HALF FILM UNDER THE TONGUE FOUR TIMES A DAY MAXIMUM DAILY DOSE = 2 FILMS SOLD: 11/04/2020 [facility] Methylphenidate Hydrochloride 10 MG Oral Tablet Methyl phenidate HCl 10 MG Methylphenidate HCl 10 MG 11/03/2020 12:00:00 AM EST 1.0 {tablet} active Methylphenidate HCl 10 MG eCW1 ( [facility]) Methylphenidate Hydrochloride 10 MG Oral Tablet Methyl phenidate HCl 10 MG Methylphenidate HCl 10 MG 11/03/2020 12:00:00 AM EST 1.0 {tablet} active Methylphenidate HCl 10 MG eCW1 ( [facility]) 10 mg 11/03/2020 12:00:00 AM EST tablet 60 TAKE ONE TABLET BY MOUTH TWICE A DAY MAXIMUM DAILY DOSE = 2 TAKE ONE TABLET BY MOUTH TWICE A DAY MAX IMUM DAILY DOSE = 2 SOLD: 11/04/2020 [facility] Eszopiclone 2 MG Oral Tablet ESZOPICLONE 10/21/2020 12:00:00 AM EST ta blet 30 TAKE 1 TABLET BY MOUTH IMMEDIATELY BEFORE BEDTIME MAXIMUM DAILY DOSE = 1 TAKE 1 TABLET BY MOUTH IMMEDIATELY BEFORE BEDTIME MAXIMUM DAILY DOSE = 1 SOLD: 10/23/2020 [facility] 0.5 mg 10/21/2020 12:00:00 AM EST tablet 60 TAKE ONE TABLET BY MOUTH TWICE A DAY NEEDED MAXIMUM DAILY DOSE = 2 TAKE ONE TABLET BY MOUTH TWICE A DAY NEEDED MAXIMUM DAILY DOSE = 2 SOLD: 10/23/2020 [facility] Methylphenidate Hydrochloride 10 MG Oral Tablet Methyl phenidate HCl 10 MG Methylphenidate HCl 10 MG 10/20/2020 12:00:00 AM EST active Methylphenidate HCl 10 MG eCW1 ([facility]) Methylphenidate Hydrochloride 10 MG Oral Tablet Methyl phenidate HCl 10 MG Methylphenidate HCl 10 MG 10/20/2020 12:00:00 AM EST active Methylphenidate HCl 10 MG eCW1 ([facility]) Methylphenidate Hydrochloride 10 MG Oral Tablet Methyl phenidate HCl 10 MG Methylphenidate HCl 10 MG 10/20/2020 12:00:00 AM EST active Methylphenidate HCl 10 MG eCW1 ([facility]) 10 mg 10/20/2020 12:00:00 AM EST tablet 30 TAKE ONE-HALF TABLET BY MOUTH TWICE A DAY ON AN EMPTY STOMACH - MAXIMUM DAILY DOSE = 2 TABLETS TAKE ONE-HALF TABLET BY MOUTH TWICE A DAY ON AN EMPTY STOMACH - MAXIMUM DAILY DOSE = 2 TABLETS SOLD: 10/21/2020 [facility] Methylphenidate Hydrochloride 10 MG Oral Tablet Methyl phenidate HCl 10 MG Methylphenidate HCl 10 MG 10/20/2020 12:00:00 AM EST active Methylphenidate HCl 10 MG eCW1 ([facility]) 18 mg 10/18/2020 12:00:00 AM EST tablet extended release 24hr 3 TAKE ONE TABLET BY MOUTH EVERY MORNING MAXIMUM DAILY DOSE = 1 TABLET TAKE ONE TABLET BY MOUTH EVERY MORNING MAXIMUM DAILY DOSE = 1 TABLET SOLD: 10/18/2020 [facility] Methylphenidate HCl ER ([place]) 10 MG Methylphenidate HCl ER ([facility] ) 10 MG 10/17/2020 12:00:00 AM EST active Methylph enidate HCl ER ([place]) 10 MG eCW1 ([facility]) 12-3 mg 10/07/2020 12:00:00 AM EST film [...] active Met hylphenidate HCl 5 MG eCW1 ([facility]) 200 mg 09/30/2020 12:00:00 AM EST capsule [...] activ e Atorvastatin Calcium 20 MG eCW1 ([facility]) atorvastatin 20 MG Oral Tablet Atorvastatin Calcium 20 MG Atorvastatin Calcium 20 MG 08/01/2020 12:00:00 AM EDT 1.0 {tablet} activ e Atorvastatin Calcium 20 MG eCW1 ([facility]) 200 mg 08/01/2020 12:00:00 AM EDT capsule [...] activ e Atorvastatin Calcium 20 MG eCW1 ([facility]) atorvastatin 20 MG Oral Tablet Atorvastatin Calcium 20 MG Atorvastatin Calcium 20 MG 08/01/2020 12:00:00 AM EDT 1.0 {tablet} activ e Atorvastatin Calcium 20 MG eCW1 ([facility]) atorvastatin 20 MG Oral Tablet Atorvastatin Calcium 20 MG Atorvastatin Calcium 20 MG 08/01/2020 12:00:00 AM EDT 1.0 {tablet} activ e Atorvastatin Calcium 20 MG eCW1 ([facility]) atorvastatin 20 MG Oral Tablet Atorvastatin Calcium 20 MG Atorvastatin Calcium 20 MG 08/01/2020 12:00:00 AM EDT 1.0 {tablet} activ e Atorvastatin Calcium 20 MG eCW1 ([facility]) atorvastatin 20 MG Oral Tablet Atorvastatin Calcium 20 MG Atorvastatin Calcium 20 MG 08/01/2020 12:00:00 AM EDT 1.0 {tablet} active eCW1 ([facility]) atorvastatin 20 MG Oral Tablet Atorvastatin Calcium 20 MG Atorvastatin Calcium 20 MG 08/01/2020 12:00:00 AM EDT 1.0 {tablet} activ e Atorvastatin Calcium 20 MG eCW1 ([facility]) atorvastatin 20 MG Oral Tablet Atorvastatin Calcium 20 MG Atorvastatin Calcium 20 MG 08/01/2020 12:00:00 AM EDT 1.0 {tablet} activ e Atorvastatin Calcium 20 MG eCW1 ([facility]) 200 mg 08/01/2020 12:00:00 AM EDT capsule [...] activ e Atorvastatin Calcium 20 MG eCW1 ([facility]) atorvastatin 20 MG Oral Tablet Atorvastatin Calcium 20 MG Atorvastatin Calcium 20 MG 08/01/2020 12:00:00 AM EDT 1.0 {tablet} activ e Atorvastatin Calcium 20 MG eCW1 ([facility]) atorvastatin 20 MG Oral Tablet Atorvastatin Calcium 20 MG Atorvastatin Calcium 20 MG 08/01/2020 12:00:00 AM EDT 1.0 {tablet} activ e Atorvastatin Calcium 20 MG eCW1 ([facility]) atorvastatin 20 MG Oral Tablet Atorvastatin Calcium 20 MG Atorvastatin Calcium 20 MG 08/01/2020 12:00:00 AM EDT 1.0 {tablet} activ e Atorvastatin Calcium 20 MG eCW1 ([facility]) atorvastatin 20 MG Oral Tablet Atorvastatin Calcium 20 MG Atorvastatin Calcium 20 MG 08/01/2020 12:00:00 AM EDT 1.0 {tablet} activ e Atorvastatin Calcium 20 MG eCW1 ([facility]) atorvastatin 20 MG Oral Tablet Atorvastatin Calcium 20 MG Atorvastatin Calcium 20 MG 08/01/2020 12:00:00 AM EDT 1.0 {tablet} activ e Atorvastatin Calcium 20 MG eCW1 ([facility]) atorvastatin 20 MG Oral Tablet Atorvastatin Calcium 20 MG Atorvastatin Calcium 20 MG 08/01/2020 12:00:00 AM EDT 1.0 {tablet} activ e Atorvastatin Calcium 20 MG eCW1 ([facility]) atorvastatin 20 MG Oral Tablet Atorvastatin Calcium 20 MG Atorvastatin Calcium 20 MG 08/01/2020 12:00:00 AM EDT 1.0 {tablet} activ e Atorvastatin Calcium 20 MG eCW1 ([facility]) atorvastatin 20 MG Oral Tablet Atorvastatin Calcium 20 MG Atorvastatin Calcium 20 MG 08/01/2020 12:00:00 AM EDT 1.0 {tablet} activ e Atorvastatin Calcium 20 MG eCW1 ([facility]) atorvastatin 20 MG Oral Tablet Atorvastatin Calcium 20 MG Atorvastatin Calcium 20 MG 08/01/2020 12:00:00 AM EDT 1.0 {tablet} activ e Atorvastatin Calcium 20 MG eCW1 ([facility]) atorvastatin 20 MG Oral Tablet Atorvastatin Calcium 20 MG Atorvastatin Calcium 20 MG 08/01/2020 12:00:00 AM EDT 1.0 {tablet} activ e Atorvastatin Calcium 20 MG eCW1 ([facility]) atorvastatin 20 MG Oral Tablet Atorvastatin Calcium 20 MG Atorvastatin Calcium 20 MG 08/01/2020 12:00:00 AM EDT 1.0 {tablet} activ e Atorvastatin Calcium 20 MG eCW1 ([facility]) atorvastatin 20 MG Oral Tablet Atorvastatin Calcium 20 MG Atorvastatin Calcium 20 MG 08/01/2020 12:00:00 AM EDT 1.0 {tablet} activ e Atorvastatin Calcium 20 MG eCW1 ([facility]) atorvastatin 20 MG Oral Tablet Atorvastatin Calcium 20 MG Atorvastatin Calcium 20 MG 08/01/2020 12:00:00 AM EDT 1.0 {tablet} activ e Atorvastatin Calcium 20 MG eCW1 ([facility]) atorvastatin 20 MG Oral Tablet Atorvastatin Calcium 20 MG Atorvastatin Calcium 20 MG 08/01/2020 12:00:00 AM EDT 1.0 {tablet} activ e Atorvastatin Calcium 20 MG eCW1 ([facility]) atorvastatin 20 MG Oral Tablet ATORVASTATIN CALCIUM 08/01/2020 1 2:00:00 AM EDT tablet 90 TAKE ONE TABLET BY MOUTH EVERY D AY TAKE ONE TABLET BY MOUTH EVERY DAY SOLD: 10/31/2020 [facility] atorvastatin 20 MG Oral Tablet Atorvastatin Calcium 20 MG Atorvastatin Calcium 20 MG 08/01/2020 12:00:00 AM EDT 1.0 {tablet} activ e Atorvastatin Calcium 20 MG eCW1 ([facility]) atorvastatin 20 MG Oral Tablet Atorvastatin Calcium 20 MG Atorvastatin Calcium 20 MG 08/01/2020 12:00:00 AM EDT 1.0 {tablet} activ e Atorvastatin Calcium 20 MG eCW1 ([facility]) atorvastatin 20 MG Oral Tablet Atorvastatin Calcium 20 MG Atorvastatin Calcium 20 MG 08/01/2020 12:00:00 AM EDT 1.0 {tablet} activ e Atorvastatin Calcium 20 MG eCW1 ([facility]) atorvastatin 20 MG Oral Tablet Atorvastatin Calcium 20 MG Atorvastatin Calcium 20 MG 08/01/2020 12:00:00 AM EDT 1.0 {tablet} activ e Atorvastatin Calcium 20 MG eCW1 ([facility]) atorvastatin 20 MG Oral Tablet Atorvastatin Calcium 20 MG Atorvastatin Calcium 20 MG 08/01/2020 12:00:00 AM EDT 1.0 {tablet} activ e Atorvastatin Calcium 20 MG eCW1 ([facility]) atorvastatin 20 MG Oral Tablet Atorvastatin Calcium 20 MG Atorvastatin Calcium 20 MG 08/01/2020 12:00:00 AM EDT 1.0 {tablet} activ e Atorvastatin Calcium 20 MG eCW1 ([facility]) atorvastatin 20 MG Oral Tablet Atorvastatin Calcium 20 MG Atorvastatin Calcium 20 MG 08/01/2020 12:00:00 AM EDT 1.0 {tablet} activ e Atorvastatin Calcium 20 MG eCW1 ([facility]) atorvastatin 20 MG Oral Tablet Atorvastatin Calcium 20 MG Atorvastatin Calcium 20 MG 08/01/2020 12:00:00 AM EDT 1.0 {tablet} activ e Atorvastatin Calcium 20 MG eCW1 ([facility]) atorvastatin 20 MG Oral Tablet Atorvastatin Calcium 20 MG Atorvastatin Calcium 20 MG 08/01/2020 12:00:00 AM EDT 1.0 {tablet} active eCW1 ([facility]) atorvastatin 20 MG Oral Tablet Atorvastatin Calcium 20 MG Atorvastatin Calcium 20 MG 08/01/2020 12:00:00 AM EDT 1.0 {tablet} activ e Atorvastatin Calcium 20 MG eCW1 ([facility]) atorvastatin 20 MG Oral Tablet Atorvastatin Calcium 20 MG Atorvastatin Calcium 20 MG 08/01/2020 12:00:00 AM EDT 1.0 {tablet} activ e Atorvastatin Calcium 20 MG eCW1 ([facility]) atorvastatin 20 MG Oral Tablet ATORVASTATIN CALCIUM 08/01/2020 1 2:00:00 AM EDT tablet 90 TAKE ONE TABLET BY MOUTH EVERY D AY TAKE ONE TABLET BY MOUTH EVERY DAY SOLD: 08/02/[address] [facility] [address] [facility] atorvastatin 20 MG Oral Tablet Atorvastatin Calcium 20 MG Atorvastatin Calcium 20 MG 08/01/2020 12:00:00 AM EDT 1.0 {tablet} activ e Atorvastatin Calcium 20 MG eCW1 ([facility]) atorvastatin 20 MG Oral Tablet Atorvastatin Calcium 20 MG Atorvastatin Calcium 20 MG 08/01/2020 12:00:00 AM EDT 1.0 {tablet} activ e Atorvastatin Calcium 20 MG eCW1 ([facility]) atorvastatin 20 MG Oral Tablet Atorvastatin Calcium 20 MG Atorvastatin Calcium 20 MG 08/01/2020 12:00:00 AM EDT 1.0 {tablet} activ e Atorvastatin Calcium 20 MG eCW1 ([facility]) atorvastatin 20 MG Oral Tablet Atorvastatin Calcium 20 MG Atorvastatin Calcium 20 MG 08/01/2020 12:00:00 AM EDT 1.0 {tablet} activ e Atorvastatin Calcium 20 MG eCW1 ([facility]) atorvastatin 20 MG Oral Tablet Atorvastatin Calcium 20 MG Atorvastatin Calcium 20 MG 08/01/2020 12:00:00 AM EDT 1.0 {tablet} activ e Atorvastatin Calcium 20 MG eCW1 ([facility]) atorvastatin 20 MG Oral Tablet Atorvastatin Calcium 20 MG Atorvastatin Calcium 20 MG 08/01/2020 12:00:00 AM EDT 1.0 {tablet} activ e Atorvastatin Calcium 20 MG eCW1 ([facility]) atorvastatin 20 MG Oral Tablet Atorvastatin Calcium 20 MG Atorvastatin Calcium 20 MG 08/01/2020 12:00:00 AM EDT 1.0 {tablet} activ e Atorvastatin Calcium 20 MG eCW1 ([facility]) atorvastatin 20 MG Oral Tablet Atorvastatin Calcium 20 MG Atorvastatin Calcium 20 MG 08/01/2020 12:00:00 AM EDT 1.0 {tablet} activ e Atorvastatin Calcium 20 MG eCW1 ([facility]) atorvastatin 20 MG Oral Tablet Atorvastatin Calcium 20 MG Atorvastatin Calcium 20 MG 08/01/2020 12:00:00 AM EDT 1.0 {tablet} activ e Atorvastatin Calcium 20 MG eCW1 ([facility]) atorvastatin 20 MG Oral Tablet Atorvastatin Calcium 20 MG Atorvastatin Calcium 20 MG 08/01/2020 12:00:00 AM EDT 1.0 {tablet} activ e Atorvastatin Calcium 20 MG eCW1 ([facility]) atorvastatin 20 MG Oral Tablet Atorvastatin Calcium 20 MG Atorvastatin Calcium 20 MG 08/01/2020 12:00:00 AM EDT 1.0 {tablet} activ e Atorvastatin Calcium 20 MG eCW1 ([facility]) atorvastatin 20 MG Oral Tablet Atorvastatin Calcium 20 MG Atorvastatin Calcium 20 MG 08/01/2020 12:00:00 AM EDT 1.0 {tablet} activ e Atorvastatin Calcium 20 MG eCW1 ([facility]) atorvastatin 20 MG Oral Tablet Atorvastatin Calcium 20 MG Atorvastatin Calcium 20 MG 08/01/2020 12:00:00 AM EDT 1.0 {tablet} activ e Atorvastatin Calcium 20 MG eCW1 ([facility]) atorvastatin 20 MG Oral Tablet Atorvastatin Calcium 20 MG Atorvastatin Calcium 20 MG 08/01/2020 12:00:00 AM EDT 1.0 {tablet} activ e Atorvastatin Calcium 20 MG eCW1 ([facility]) atorvastatin 20 MG Oral Tablet Atorvastatin Calcium 20 MG Atorvastatin Calcium 20 MG 08/01/2020 12:00:00 AM EDT 1.0 {tablet} activ e Atorvastatin Calcium 20 MG eCW1 ([facility]) atorvastatin 20 MG Oral Tablet Atorvastatin Calcium 20 MG Atorvastatin Calcium 20 MG 08/01/2020 12:00:00 AM EDT 1.0 {tablet} activ e Atorvastatin Calcium 20 MG eCW1 ([facility]) atorvastatin 20 MG Oral Tablet Atorvastatin Calcium 20 MG Atorvastatin Calcium 20 MG 08/01/2020 12:00:00 AM EDT 1.0 {tablet} activ e Atorvastatin Calcium 20 MG eCW1 ([facility]) atorvastatin 20 MG Oral Tablet Atorvastatin Calcium 20 MG Atorvastatin Calcium 20 MG 08/01/2020 12:00:00 AM EDT 1.0 {tablet} activ e Atorvastatin Calcium 20 MG eCW1 ([facility]) atorvastatin 20 MG Oral Tablet Atorvastatin Calcium 20 MG Atorvastatin Calcium 20 MG 08/01/2020 12:00:00 AM EDT 1.0 {tablet} activ e Atorvastatin Calcium 20 MG eCW1 ([facility]) atorvastatin 20 MG Oral Tablet Atorvastatin Calcium 20 MG Atorvastatin Calcium 20 MG 08/01/2020 12:00:00 AM EDT 1.0 {tablet} activ e Atorvastatin Calcium 20 MG eCW1 ([facility]) atorvastatin 20 MG Oral Tablet Atorvastatin Calcium 20 MG Atorvastatin Calcium 20 MG 08/01/2020 12:00:00 AM EDT 1.0 {tablet} activ e Atorvastatin Calcium 20 MG eCW1 ([facility]) atorvastatin 20 MG Oral Tablet Atorvastatin Calcium 20 MG Atorvastatin Calcium 20 MG 08/01/2020 12:00:00 AM EDT 1.0 {tablet} activ e Atorvastatin Calcium 20 MG eCW1 ([facility]) atorvastatin 20 MG Oral Tablet Atorvastatin Calcium 20 MG Atorvastatin Calcium 20 MG 08/01/2020 12:00:00 AM EDT 1.0 {tablet} activ e Atorvastatin Calcium 20 MG eCW1 ([facility]) atorvastatin 20 MG Oral Tablet Atorvastatin Calcium 20 MG Atorvastatin Calcium 20 MG 08/01/2020 12:00:00 AM EDT 1.0 {tablet} activ e Atorvastatin Calcium 20 MG eCW1 ([facility]) atorvastatin 20 MG Oral Tablet Atorvastatin Calcium 20 MG Atorvastatin Calcium 20 MG 08/01/2020 12:00:00 AM EDT 1.0 {tablet} activ e Atorvastatin Calcium 20 MG eCW1 ([facility]) atorvastatin 20 MG Oral Tablet Atorvastatin Calcium 20 MG Atorvastatin Calcium 20 MG 08/01/2020 12:00:00 AM EDT 1.0 {tablet} activ e Atorvastatin Calcium 20 MG eCW1 ([facility]) atorvastatin 20 MG Oral Tablet Atorvastatin Calcium 20 MG Atorvastatin Calcium 20 MG 08/01/2020 12:00:00 AM EDT 1.0 {tablet} activ e Atorvastatin Calcium 20 MG eCW1 ([facility]) atorvastatin 20 MG Oral Tablet Atorvastatin Calcium 20 MG Atorvastatin Calcium 20 MG 08/01/2020 12:00:00 AM EDT 1.0 {tablet} activ e Atorvastatin Calcium 20 MG eCW1 ([facility]) atorvastatin 20 MG Oral Tablet Atorvastatin Calcium 20 MG Atorvastatin Calcium 20 MG 08/01/2020 12:00:00 AM EDT 1.0 {tablet} activ e Atorvastatin Calcium 20 MG eCW1 ([facility]) 0.5 mg 07/25/2020 12:00:00 AM EDT tablet [...] type / Coverage type Policy ID Covered green party ID Covered green party's relationship to freeman Policy [place] Plan Information VALDO [id number] SP [id number] A [employer]() Workers Compensation [id number] Self [id number] [place]() Workers Compensation [id number] Self [id number] [facility] Workers Compensation [id number]- [id number] Self [id number] MEDICARE [id number] SP [id number] MEDICARE [id number] SP [id number] A MEDICARE A [id number] Self [id number] [place] [id number] Self [id number] [place] [id number] Self [id number] [place] [id number] Self [id number] MEDICARE A [id number] Self [id number] A [facility]-Medicare Part B [id number] ANSI-Medicare Part B [id number] ANSI-Medicare Part B [id number] ANSI-Medicare Part B [id number] ANSI-Medicare Part B [id number] ANSI-Medicare Part B [id number] [id number] ANSI-Medicare Part B [id number] ANSI-Medicare Part B [id number]-[id number] ANSI-Medicare Part B [id number] ANSI-Medicare Part B [id number] 3gc2gg34-[id number] ANSI-Medicare Part B [id number]-[id number] [id number]-2juj-[id number] ANSI-Medicare Part B [id number] pm767774-0774-6w5q-2too-crz13e3141h9 ANSI-Medicare Part B [id number] [id number]-uq19-s5f9zh5e1od5 ANSI-Medicare Part B [id number]-[id number] 3kw60075-9049-2s2j-3840-2v9rj66gcjt9 ANSI-Medicare Part B [id number]-zt2z-61e2x88ldq33 86ddwr75-o4o3-5110-og1t-54o5i64eup88 ANSI-Medicare Part B [id number]-qv9j-t26w2l671934 ANSI-Medicare Part B [id number]-3l1u-6d2i-1wqz88r6n7a0 ci4570oc-rm1v-1e7x-1c9z-3ufa41s8h6o3 ANSI-Medicare Part B [id number]-3f56-56842uw1m5g9 35tfw230-4e77-786e-7u26-83082hi7b6p7 ANSI-Medicare Part B [id number] u602722t-1b4l-55c0-9vn5-66wa5lpxo3ug ANSI-Medicare Part B [id number]-55u213p4t4i3 [id number]-40o482a3k5x7 ANSI-Medicare Part B [id number]-[id number] zw456m1j-to12-8112-fre2-z3l361294791 ANSI-Medicare Part B [id number]-98z5-75r6-[id number] [id number]-j25w-78r9-26c8-n8122054k713 ANSI-Medicare Part B [id number]-5heg-j2g8o8p05g10 cf026383-4wlt-32kl-9fxi-z7a4g7j27b72 ANSI-Medicare Part B 801g9b15-jg92-038v-65hp-hhx625iu6l6i 192k4m86-de13-544n-78ng-kdm282ys5x5d ANSI-Medicare Part B [id number]-33x1-735k-7n6j-[id number] im4l2fcf-28p6-845t-8m0j-t33n863208d0 ANSI-Medicare Part B [id number]-2272-ts7i-4180144g46s4 7p359o86-5ivl-7460-ph7q-7998363r71k9 ANSI-Medicare Part B [id number]-ws43-1725-6s9d-630z917f5e5d 04v8n99c-gp64-3629-8v3h-139u377e0j6v ANSI-Medicare Part B 96w91rix-i7u0-842n-041a-e4w807exw3o1 31v73wcx-m9f9-873v-069z-u8q937zne2a6 MEDICARE [id number] SP [id number] A ANSI-Medicare Part B [id number]-mtmp-ns481oot9647 l8h91u7r-y963-50r8-cdca-ow103tkq3018 ANSI-Medicare Part B 391r4mz1-up1z-6o2b-3fq1-2g3rcm9sb3db 428q6cz1-vm6n-8v3f-9yh2-7i8uzz7vd7qu ANSI-Medicare Part B [id number]-6z20-88063i629cdo 3q565799-yws9-191m-1a11-78316q734vnk ANSI-Medicare Part B [id number]-yz40-e34u48m129e8 8654b054-7b31-7f7l-fr21-b07s85i425j2 ANSI-Medicare Part B [id number]-x9i6-4658-g43k-dcw23s1l26ab 7335h2tl-n7s7-6988-v00k-etv12d6l62eo ANSI-Medicare Part B 050s1h34-8256-15f4-m02p-8s79qtj1cw94 580f4h94-4813-59c8-t48d-5n30xes7zi94 ANSI-Medicare Part B ic75000j-76dd-2cyl-656f-515v54r7893a ae24747m-80ph-6lsd-955g-717f02d3530h ANSI-Medicare Part B ipbfc1lq-6575-2821-n014-26242jq140e7 ruamf7zw-6880-7214-e820-66207vf682y3 ANSI-Medicare Part B p3byt4v8-ms51-6332-aa8e-9k64zq8w7288 b7czx8o7-id52-1526-se3p-8h43bk9h7124 ANSI-Medicare Part B [id number]-70ev-dq7e-[id number] 32u9893u-563k-81ij-ct0x-d546076525m2 ANSI-Medicare Part B [id number]-m6wl-v047q324tpes 87c97127-22k6-79yk-o9kr-d781c139adrh ANSI-Medicare Part B 137c4sr1-2ole-3ec2-8xto-et1sgya7t887 533o3xq3-4mzn-3fd6-3bkd-gf8meku3p514 ANSI-Medicare Part B [id number]-1n85-4503-172unzaf22x6 40242198-39yr-3p90-7120-505dxbvk46i2 ANSI-Medicare Part B 76r6a3v4-3sx7-15q1-k4s0-349415fe96sd 78h9t1v9-7ve7-09q2-o8f2-139000pt82pw ANSI-Medicare Part B 697k6qi9-9784-3e9j-8z6z-l6vsa65im436 216t3xb8-6297-3p1g-6s0b-m3qyf86gi150 ANSI-Medicare Part B [id number]-w067-40lu-1367-q865a6089w3e 1e843704-p968-70ry-2919-a867c4071d9y ANSI-Medicare Part B [id number]-ebm3-98b1-y581-xyuw1k0g55m3 4q6016j2-oyg6-43c9-m562-wnyi6y6q33i5 ANSI-Medicare Part B 86j23z64-tib1-491q-69c0-44620s79qld8 17f07m72-tct1-228h-10c4-06085d18ece2 ANSI-Medicare Part B [id number]-ww0b-83b2-18h6-vhchh92753k4 2z5452x7-bz6m-89n2-34p1-mpmhh62596w5 ANSI-Medicare Part B 288s58b2-f372-2884-7u43-owso1rfc8342 737h44a7-n364-4076-3h42-nkjf3dqq7588 ANSI-Medicare Part B flfq6663-1237-221n-0nti-38743m7h88de gdww4067-4398-680z-3iuk-26889j4x16qj ANSI-Medicare Part B f284b739-6y58-6j6q-n88f-71339q4vm6do z354t137-0t88-2n2d-p94h-49958y7rx1yk ANSI-Medicare Part B wr55i9da-i091-564i-2804-2q9930d3146o jg59t3vf-o055-445d-2122-8p3968b5788p ANSI-Medicare Part B [id number]-6m89-058s-r7x4609148l9 0301a630-7jqa-5b03-368e-q6m4469457r1 ANSI-Medicare Part B pt309r13-4k66-6f19-752r-748p169r115z cy286n10-3q91-8z30-666j-478a881t802w ANSI-Medicare Part B [id number]-21k9-9g59-fbe1-89q7u04iw8r4 i0fh849q-72w9-7l26-wtu8-39e6t72hj1l0 ANSI-Medicare Part B [id number]-u0b7-5706-15yl-2y8gsco3frw8 w9392kdr-o6i9-1644-17vp-9y2hyjy4gye7 MEDICARE [id number] SP [id number] A38 ANSI-Medicare Part B 8mzo86zt-8gb0-5zbs-2590-71igpdo65911 3oym40as-4fy7-9vlu-5472-50yvocb85762 ANSI-Medicare Part B 8999i6q8-yj69-853v-5897-321d31k6pb96 4807n5h9-ih93-115z-7051-593y13t5py83 ANSI-Medicare Part B 77882099-pwk2-3245-71p3-w57399k49rw5 86797319-kzb7-3366-96g2-l44913n25la2 ANSI-Medicare Part B d20v2w20-794s-219d-2679-v923igd70e57 w62f5k72-024w-626z-5517-a975xih49v99 ANSI-Medicare Part B [id number]-o369-07ki-2w3g-8573j54350l8 4rmnm934-v132-22or-3f6f-5413l66690s9 ANSI-Medicare Part B 1yf55lbi-7knh-978i-501u-646eea5m3gu7 7mj66kep-3ehp-740w-296y-527nzg3r2fq6 ANSI-Medicare Part B [id number]-m225-i9k67t2h5448 v34p19e2-5172-2932-y640-e7s39x2p1650 ANSI-Medicare Part B le533k19-9y9r-4me7-5nr2-86e0x41p2384 uu357t05-0w0h-9qp4-4br5-85b5x57z2590 ANSI-Medicare Part B [id number]-g347-1cvk-5hf7-39e086064da5 73761925-i129-3xly-2ca7-41k133756do0 ANSI-Medicare Part B jhu4oz2a-0267-9962-p521-4an7d7i7q3h2 cen0hx6m-7961-8273-v987-0mw1x2y6d2m9 ANSI-Medicare Part B [id number]-494t-815h-04744u629562 7x8ec331-061j-300y-601x-23605d561829 ANSI-Medicare Part B [id number]-ieg9-b2c553fhv781 459a2403-5z97-043d-wfn1-n5t996igq582 ANSI-Medicare Part B 3tr3p558-85vo-4491-4416-55g35wdy6kr1 1mo2r033-82ko-5622-7374-63d06fyt9um2 ANSI-Medicare Part B [id number]-b8us-252qavup3u30 m172m878-8880-5bvb-y0ep-821uhrfo0b68 ANSI-Medicare Part B 551pg6e0-u29h-7u90-r438-q00279010w65 688kp7m4-h78i-7l68-f457-f93885317j80 ANSI-Medicare Part B [id number]-52vx-t49b-d19i5m5929n3 924u1s67-bsyi-63rj-j20b-b78u3w6355q7 ANSI-Medicare Part B 497qgs7z-7e0z-1lz6-4ew8-i56gjn5t5681 058oeg7m-9k0h-9lg1-0qj9-i64qhf1f4775 ANSI-Medicare Part B fv3gl7f1-82pl-31ng-ky5n-m20bn745l906 fy9ld1y5-26uw-58ln-bg9j-e36gi688t952 ANSI-Medicare Part B [id number]-w4989o00t0og 9z262924-93f2-9i31-8734-f8914z31t5fu ANSI-Medicare Part B n83wj2m7-192r-9e27-8hry-507hf9mcjtsm i26gi5i6-286d-4r47-3crm-387ob8ssnxlr ANSI-Medicare Part B [id number]-k969-95slk7327733 68244796-6bb6-0654-q344-46pwz3799292 ANSI-Medicare Part B [id number]-h4s6-0oq1-u032-z41o1f0bc32a x24f26km-o8j9-7xv5-o581-m12b4c9xc99d MEDICARE C [id number] S [id number] A Medicaid [place] Medigap Part B [id number] Self [id number] [place] Workers Compensation [id number] Self [id number] [employer] () Workers Compensation [id number]. [id number] Self [id number] [facility] () Workers Compensation [id number] Self [id number] [employer] () Workers Compensation [id number]. [id number] Self [id number] [facility] () Workers Compensation [id number] Self [id number] [employer] () Workers Compensation [id number]. [id number] Self [id number] MEDICARE - [place] [facility] [id number] S [id number] MEDICARE MEDICARE [id number] Self JACKIE AMBROSE JR MEDICARE [facility] [id number] SP [id number] SELF PAY UNAVAILABLE SP UNAVAILA BLE SELF PAY SP [id number] [facility] SP [id number] [facility] LIMAMedicare Part B [id number] [facility] PART B C [id number] S [id number] MEDICARE C [id number] S [id number] MEDICAID UNAVAILABLE UNAVAILA BLE ANS-Medicare Part B [id number] ANSI-Medicare Part B [id number] ANSI-Medicare Part B [id number] ANSI-Medicare Part B [id number] ANSI-Medicare Part B [id number] ANSI-Medicare Part B [id number] ANSI-Medicare Part B [id number] Problems, Conditions, and Diagnoses Code Display Name Description Problem Type Effective Dates Data Source(s) F98.8 60651811 ADD (attention deficit disorder) without hyperactivity Problem 03/13/2021 12:00:00 AM EDT eCW1 ([facility]) M19.90 0859620 Inflammatory arthritis Problem 02/17/2021 12 :00:00 AM EDT eCW1 ([facility]) R53.82 97122551 Chronic fatigue Problem 12/17/2020 12:00:00 AM EST eCW1 ([facility]) Surgeries/Procedures No Information Results ID Date Data Source [id number] 06/24/2021 08:47:00 AM EDT [facility] Name Value Range Interpretation Code Description Data Tracey rce(s) Supporting Document(s) SARS-CoV-2 (COVID 19) NEGATIVE - SARS-CoV-2 (COVID19) [place] This lab was ordered by [facility] a nd reported by [facility]. ID Date Data Source [id number] 06/24/2021 08:29:00 AM EDT [facility] Name Value Range Interpretation Code Description Data Tracey rce(s) Supporting Document(s) SARS COVID ANTIGEN NEGATIVE [facility] This lab was ordered by [facility] a nd reported by [facility]. ID Date Data Source URINE CULTURE 06/24/2021 12:00:00 AM EDT eCW1 ([facility]) Name Value Range Interpretation Code Description Data Tracey rce(s) Supporting Document(s) Laboratory studies (set) URINE CULTU RE eCW1 ([facility]) ID Date Data Source [facility] COVID AG (Point of Care) 06/24/2021 12:00:00 AM EDT eC W1 ([facility]) Name Value Range Interpretation Code Description Data Tracey rce(s) Supporting Document(s) NEGATIVE NEGATIVE [place] COVID ANTIGEN eCW1 ([facility]) ID Date Data Source RESPIRATORY PANEL 06/24/2021 12:00:00 AM EDT eCW1 ([facility]) Name Value Range Interpretation Code Description Data Tracey rce(s) Supporting Document(s) This respiratory PCR panel detects Influenza A H1, H3 and RESPIRATORY PANEL eCW1 ([facility]) ID Date Data Source UA URINALYSIS 06/24/2021 12:00:00 AM EDT eCW1 ([facility]) Name Value Range Interpretation Code Description Data Tracey rce(s) Supporting Document(s) Laboratory studies (set) UA URINALYS IS eCW1 ([facility]) ID Date Data Source ANTI-MITOCHONDRIAL ANTIBODY 12/17/2020 12:00:00 AM EST eCW1 ([facility]) Name Value Range Interpretation Code Description Data Tracey rce(s) Supporting Document(s) <20.0 0.0-20.0 ANTI-MITOCHONDRIAL ANTIBO DY eCW1 ([facility]) ID Date Data Source CARDIAC INJURY PROFILE 12/17/2020 12:00:00 AM EST eCW1 ([facility]) Name Value Range Interpretation Code Description Data Tracey rce(s) Supporting Document(s) 207 39-308 CPK CREATINE PHOSPHOKINASE eCW 1 ([facility]) 3.9 <3.6 CK-MB VALUE MASS eCW1 ([facility]) 1.88 < OR =4 MB/CK RELATIVE INDEX eCW1 ([facility]) ID Date Data Source CBC with Auto Differential 12/17/2020 12:00:00 AM EST eCW1 ( [facility]) Name Value Range Interpretation Code Description Data Tracey rce(s) Supporting Document(s) 7.2 4.0-10.0 WHITE BLOOD COUNT eCW1 [facility] 4.81 4.30-6.10 RED BLOOD COUNT eCW1 ([facility]) 94.8 80.0-96.0 MEAN CORPUSCULAR VOLUME e CW1 ([facility]) 15.5 13.5-17.5 HEMOGLOBIN eCW1 ([facility]) 32.2 27.0-33.0 MEAN CORPUSCULAR HEMOGLOB IN eCW1 ([facility]) 45.6 42.0-52.0 HEMATOCRIT eCW1 ([facility]) 34.0 32.0-36.5 MEAN CORPUSCULAR HGB CONC eCW1 ([facility]) 47.3 36.0-66.0 NEUTROPHILS % eCW1 ([facility]) 13.2 11.5-14.5 RED CELL DISTRIBUTION WID TH eCW1 ([facility]) 278 150-450 PLATELET COUNT, AUTOMATED eCW1 ([facility]) 9.3 2.0-8.0 MONO % eCW1 ([facility]) 2.8 0.0-3.0 EOS % eCW1 ([facility]) 1.1 0.0-1.0 BASO % eCW1 ([facility], [facility]) 39.1 24.0-44.0 LYMPH % eCW1 ([facility], [facility]) 3.4 1.5-8.5 NEUTROPHILS # eCW1 ([facility]) 0.0 0-0 NUCLEATED RED BLOOD CELL % eCW 1 ([facility]) 0.4 0-3.0 IMMATURE GRANULOCYTE % eCW1 ([facility]) 2.8 1.5-5.0 LYMPH # eCW1 ([facility], [facility]) 0.7 0.0-0.8 MONO # eCW1 ([facility]) 0.2 0.0-0.5 EOS # eCW1 ([facility]) 0.1 0.0-0.2 BASO # eCW1 ([facility]) ID Date Data Source TROPONIN I 12/17/2020 12:00:00 AM EST eCW1 ([facility]) Name Value Range Interpretation Code Description Data Tracey rce(s) Supporting Document(s) < 0.02 < 0.10 TROPONIN I eCW1 ([facility]) ID Date Data Source GAMMA GLUTAMYLTRANSPEPTIDASE 12/17/2020 12:00:00 AM EST eCW1 ([facility]) Name Value Range Interpretation Code Description Data Tracey rce(s) Supporting Document(s) 26 15-85 GAMMA GLUTAMYLTRANSPEPTIDASE e CW1 ([facility]) ID Date Data Source Comprehensive Metabolic Profile (CMP) 12/17/2020 12:00:00 AM EST eCW1 ([facility]) Name Value Range Interpretation Code Description Data Tracey rce(s) Supporting Document(s) 92 70-100 GLUCOSE, FASTING eCW1 ([facility]) 12 7-18 BLOOD UREA NITROGEN eCW1 ([facility]) 0.93 0.70-1.30 CREATININE FOR GFR eCW1 ([facility]) > 60.0 >56 GLOMERULAR FILTRATION RATE eCW 1 ([facility]) 138 136-145 SODIUM LEVEL eCW1 ([facility]) 4.7 3.5-5.1 POTASSIUM SERUM eCW1 ([facility]) 103 98-107 CHLORIDE LEVEL eCW1 ([facility]) 31 21-32 CARBON DIOXIDE LEVEL eCW1 ([facility]) 8.8 8.5-10.1 CALCIUM LEVEL eCW1 ([facility]) 37 7-37 AST/SGOT eCW1 ([facility]) 38 12-78 ALT/SGPT eCW1 ([facility]) 181 45-117 ALKALINE PHOSPHATASE eCW1 ([facility]) 7.1 6.4-8.2 TOTAL PROTEIN eCW1 ([facility]) 0.4 0.2-1.0 BILIRUBIN,TOTAL eCW1 ([facility]) 3.6 3.2-5.2 ALBUMIN eCW1 ([facility]) 1.0 ALBUMIN/GLOBULIN RATIO eCW1 ([facility]) ID Date Data Source NT-PRO BNP 12/17/2020 12:00:00 AM EST eCW1 ([facility]) Name Value Range Interpretation Code Description Data Tracey rce(s) Supporting Document(s) 11 <125 NT-PRO BNP eCW1 ([facility]) ID Date Data Source [id number] 10/06/2020 12:00:00 AM EST [facility] Name Value Range Interpretation Code Description Data Tracey rce(s) Supporting Document(s) 2019-nCoV RNA XXX ELIDA+probe-Imp [facility] This lab was ordered by [facility] and reported by [employer] Procedure Social History Code Duration Value Status Description Data Source(s ) Smoking 08/10/2021 12:00:00 AM EDT Never Smoker completed Never S moker eCW1 ([facility]) Smoking 08/10/2021 12:00:00 AM EDT Never Smoker completed Never S moker eCW1 ([facility]) Smoking 06/24/2021 12:00:00 AM EDT Never Smoker completed Never S moker eCW1 ([facility]) Smoking 06/24/2021 12:00:00 AM EDT Never Smoker completed Never S moker eCW1 ([facility]) Smoking 06/24/2021 12:00:00 AM EDT Never Smoker completed Never S moker eCW1 ([facility]) Smoking 06/24/2021 12:00:00 AM EDT Never Smoker completed Never S moker eCW1 ([facility]) Smoking 06/24/2021 12:00:00 AM EDT Never Smoker completed Never S moker eCW1 ([facility]) Smoking 03/13/2021 12:00:00 AM EDT Never Smoker completed Never S moker eCW1 ([facility]) Smoking 03/13/2021 12:00:00 AM EDT Never Smoker completed Never S moker eCW1 ([facility]) Smoking 03/13/2021 12:00:00 AM EDT Never Smoker completed Never S moker eCW1 ([facility]) Smoking 03/13/2021 12:00:00 AM EDT Never Smoker completed Never S moker eCW1 ([facility]) Smoking 03/13/2021 12:00:00 AM EDT Never Smoker completed Never S moker eCW1 ([facility]) Smoking 03/13/2021 12:00:00 AM EDT Never Smoker completed Never S moker eCW1 ([facility]) Smoking 03/13/2021 12:00:00 AM EDT Never Smoker completed Never S moker eCW1 ([facility]) Smoking 03/13/2021 12:00:00 AM EDT Never Smoker completed Never S moker eCW1 ([facility]) Smoking 03/13/2021 12:00:00 AM EDT Never Smoker completed Never S moker eCW1 ([facility]) Smoking 03/13/2021 12:00:00 AM EDT Never Smoker completed Never S moker eCW1 ([facility]) Smoking 03/13/2021 12:00:00 AM EDT Never Smoker completed Never S moker eCW1 ([facility]) Smoking 03/13/2021 12:00:00 AM EDT Never Smoker completed Never S moker eCW1 ([facility]) Smoking 03/13/2021 12:00:00 AM EDT Never Smoker completed Never S moker eCW1 ([facility]) Smoking 03/13/2021 12:00:00 AM EDT Never Smoker completed Never S moker eCW1 ([facility]) Smoking 03/13/2021 12:00:00 AM EDT Never Smoker completed Never S moker eCW1 ([facility]) Smoking 03/13/2021 12:00:00 AM EDT Never Smoker completed Never S moker eCW1 ([facility]) Smoking 03/13/2021 12:00:00 AM EDT Never Smoker completed Never S moker eCW1 ([facility]) Smoking 03/13/2021 12:00:00 AM EDT Never Smoker completed Never S moker eCW1 ([facility]) Smoking 02/17/2021 12:00:00 AM EDT Never Smoker completed Never S moker eCW1 ([facility]) Smoking 02/17/2021 12:00:00 AM EDT Never Smoker completed Never S moker eCW1 ([facility]) Smoking 02/17/2021 12:00:00 AM EDT Never Smoker completed Never S moker eCW1 ([facility]) Smoking 02/17/2021 12:00:00 AM EDT Never Smoker completed Never S moker eCW1 ([facility]) Smoking 02/17/2021 12:00:00 AM EDT Never Smoker completed Never S moker eCW1 ([facility]) Smoking 12/17/2020 12:00:00 AM EST Never Smoker completed Never S moker eCW1 ([facility]) Smoking 12/17/2020 12:00:00 AM EST Never Smoker completed Never S moker eCW1 ([facility]) Smoking 12/17/2020 12:00:00 AM EST Never Smoker completed Never S moker eCW1 ([facility]) Smoking 12/17/2020 12:00:00 AM EST Never Smoker completed Never S moker eCW1 ([facility]) Smoking 12/17/2020 12:00:00 AM EST Never Smoker completed Never S moker eCW1 ([facility]) Smoking 12/17/2020 12:00:00 AM EST Never Smoker completed Never S moker eCW1 ([facility]) Smoking 12/17/2020 12:00:00 AM EST Never Smoker completed Never S moker eCW1 ([facility]) Smoking 12/17/2020 12:00:00 AM EST Never Smoker completed Never S moker eCW1 ([facility]) Smoking 12/17/2020 12:00:00 AM EST Never Smoker completed Never S moker eCW1 ([facility]) Smoking 12/17/2020 12:00:00 AM EST Never Smoker completed Never S moker eCW1 ([facility]) Smoking 12/17/2020 12:00:00 AM EST Never Smoker completed Never S moker eCW1 ([facility]) Smoking 12/17/2020 12:00:00 AM EST Never Smoker completed Never S moker eCW1 ([facility]) Smoking 12/02/2020 12:00:00 AM EST Never Smoker completed Never S moker eCW1 ([facility]) Smoking 12/02/2020 12:00:00 AM EST Never Smoker completed Never S moker eCW1 ([facility]) Smoking 11/17/2020 12:00:00 AM EST Never Smoker completed Never S moker eCW1 ([facility]) Smoking 11/17/2020 12:00:00 AM EST Never Smoker completed Never S moker eCW1 ([facility]) Smoking 11/17/2020 12:00:00 AM EST Never Smoker completed Never S moker eCW1 ([facility]) Smoking 10/17/2020 12:00:00 AM EST Never Smoker completed Never S moker eCW1 ([facility]) Smoking 10/17/2020 12:00:00 AM EST Never Smoker completed Never S moker eCW1 ([facility]) Smoking 10/17/2020 12:00:00 AM EST Never Smoker completed Never S moker eCW1 ([facility]) Smoking 10/17/2020 12:00:00 AM EST Never Smoker completed Never S moker eCW1 ([facility]) Smoking 10/17/2020 12:00:00 AM EST Never Smoker completed Never S moker eCW1 ([facility]) Smoking 10/17/2020 12:00:00 AM EST Never Smoker completed Never S moker eCW1 ([facility]) Smoking 10/17/2020 12:00:00 AM EST Never Smoker completed Never S moker eCW1 ([facility]) Smoking 09/11/2020 12:00:00 AM EST Never Smoker completed Never S moker eCW1 ([facility]) Smoking 09/11/2020 12:00:00 AM EST Never Smoker completed Never S moker eCW1 ([facility]) Smoking 09/11/2020 12:00:00 AM EST Never Smoker completed Never S moker eCW1 ([facility]) Smoking 09/11/2020 12:00:00 AM EST Never Smoker completed Never S moker eCW1 ([facility]) Smoking 09/11/2020 12:00:00 AM EST Never Smoker completed Never S moker eCW1 ([facility]) Smoking 09/11/2020 12:00:00 AM EST Never Smoker completed Never S moker eCW1 ([facility]) Vital Signs ID Date Data Source UNK Name Value Range Interpretation Code Description Data Source(s) Body weight 170 [lb_av] 170 [lb_av] eCW1 ([facility]) Body weight 77.11 kg 77.11 kg eCW1 ([facility]) Body height 65 [in_i] 65 [in_i] eCW1 ([facility]) Body mass index (BMI) [Ratio] 28.29 kg/m2 28.29 kg/m2 eCW1 ([facility]) Heart rate 77 /min 77 /min eCW1 ([facility]) Respiratory rate 18 /min 18 /min eCW1 ([facility]) Body temperature 98.3 [degF] 98.3 [degF] eCW1 ( [facility]) Systolic blood pressure 122 mm[Hg] 122 mm[Hg] e CW1 ([facility]) Diastolic blood pressure 78 mm[Hg] 78 mm[Hg] eCW1 ([facility]) Body weight 174 [lb_av] 174 [lb_av] eCW1 ([facility]) Body weight 78.93 kg 78.93 kg eCW1 ([facility]) Body height 65 [in_i] 65 [in_i] eCW1 ([facility]) Body mass index (BMI) [Ratio] 28.95 kg/m2 28.95 kg/m2 eCW1 ([facility]) Heart rate 84 /min 84 /min eCW1 ([facility]) Respiratory rate 18 /min 18 /min eCW1 ([facility]) Body temperature 98 [degF] 98 [degF] eCW1 ([facility]) Body weight 174 [lb_av] 174 [lb_av] eCW1 ([facility]) Body height 65 [in_i] 65 [in_i] eCW1 ([facility]) Body mass index (BMI) [Ratio] 28.95 kg/m2 28.95 kg/m2 eCW1 ([facility]) Heart rate 95 /min 95 /min eCW1 ([facility]) Respiratory rate 20 /min 20 /min eCW1 ([facility]) Body temperature 98.7 [degF] 98.7 [degF] eCW1 ( [facility]) Systolic blood pressure 122 mm[Hg] 122 mm[Hg] e CW1 ([facility]) Diastolic blood pressure 78 mm[Hg] 78 mm[Hg] eCW1 ([facility]) Body weight 178 [lb_av] 178 [lb_av] eCW1 ([facility]) Body height 65 [in_i] 65 [in_i] eCW1 ([facility]) Body mass index (BMI) [Ratio] 29.62 kg/m2 29.62 kg/m2 eCW1 ([facility]) Heart rate 87 /min 87 /min eCW1 ([facility]) Respiratory rate 18 /min 18 /min eCW1 ([facility]) Body temperature 98.5 [degF] 98.5 [degF] eCW1 ( [facility]) Systolic blood pressure 122 mm[Hg] 122 mm[Hg] e CW1 ([facility]) Diastolic blood pressure 80 mm[Hg] 80 mm[Hg] eCW1 ([facility]) Body weight 182 [lb_av] 182 [lb_av] eCW1 ([facility]) Body height 65 [in_i] 65 [in_i] eCW1 ([facility]) Body mass index (BMI) [Ratio] 30.28 kg/m2 30.28 kg/m2 eCW1 ([facility]) Heart rate 79 /min 79 /min eCW1 ([facility]) Respiratory rate 18 /min 18 /min eCW1 ([facility]) Body temperature 98 [degF] 98 [degF] eCW1 ([facility]) Systolic blood pressure 124 mm[Hg] 124 mm[Hg] e CW1 ([facility]) Diastolic blood pressure 92 mm[Hg] 92 mm[Hg] eCW1 ([facility]) Body weight 173 [lb_av] 173 [lb_av] eCW1 ([facility]) Body height 65 [in_i] 65 [in_i] eCW1 ([facility]) Body mass index (BMI) [Ratio] 28.79 kg/m2 28.79 kg/m2 eCW1 ([facility]) Heart rate 97 /min 97 /min eCW1 ([facility]) Respiratory rate 18 /min 18 /min eCW1 ([facility]) Body temperature 99.1 [degF] 99.1 [degF] eCW1 ( [facility]) Systolic blood pressure 128 mm[Hg] 128 mm[Hg] e CW1 ([facility]) Diastolic blood pressure 62 mm[Hg] 62 mm[Hg] eCW1 ([facility]) Body weight 174.4 [lb_av] 174.4 [lb_av] eCW1 ([facility]) Body height 65 [in_i] 65 [in_i] eCW1 ([facility]) Body mass index (BMI) [Ratio] 29.02 kg/m2 29.02 kg/m2 eCW1 ([facility]) Heart rate 95 /min 95 /min eCW1 ([facility]) Respiratory rate 20 /min 20 /min eCW1 ([facility]) Body temperature 96.3 [degF] 96.3 [degF] eCW1 ( [facility]) Systolic blood pressure 118 mm[Hg] 118 mm[Hg] e CW1 ([facility]) Diastolic blood pressure 78 mm[Hg] 78 mm[Hg] eCW1 ([facility]) Body weight 177 [lb_av] 177 [lb_av] eCW1 ([facility]) Body height 65 [in_i] 65 [in_i] eCW1 ([facility]) Body mass index (BMI) [Ratio] 29.45 kg/m2 29.45 kg/m2 eCW1 ([facility]) Heart rate 69 /min 69 /min eCW1 ([facility]) Respiratory rate 16 /min 16 /min eCW1 ([facility]) Body temperature 98.8 [degF] 98.8 [degF] eCW1 ( [facility]) Systolic blood pressure 128 mm[Hg] 128 mm[Hg] e CW1 ([facility]) Diastolic blood pressure 78 mm[Hg] 78 mm[Hg] eCW1 ([facility]) Body weight 171.8 [lb_av] 171.8 [lb_av] eCW1 ([facility]) Body height 65 [in_i] 65 [in_i] eCW1 ([facility]) Body mass index (BMI) [Ratio] 28.59 kg/m2 28.59 kg/m2 eCW1 ([facility]) Heart rate 69 /min 69 /min eCW1 ([facility]) Respiratory rate 18 /min 18 /min eCW1 ([facility]) Body temperature 98.0 [degF] 98.0 [degF] eCW1 ( [facility]) Systolic blood pressure 130 mm[Hg] 130 mm[Hg] e CW1 ([facility]) Diastolic blood pressure 82 mm[Hg] 82 mm[Hg] eCW1 ([facility]) Patient Treatment Plan of Care Planned Activity Planned Date Details Description Data Source (s) Eszopiclone 2 MG Oral Tablet [Lunesta] 08/17/2021 12:00:00 AM EDT eCW1 ([facility]) Lorazepam 0.5 MG Oral Tablet 08/17/2021 12:00:00 AM EDT eCW1 ([facility]) Methylphenidate HCl ER (CD) 10 MG 08/10/2021 12:00:00 AM EDT eCW1 ([facility]) Methylphenidate HCl ER (CD) 10 MG 08/10/2021 12:00:00 AM EDT eCW1 ([facility]) Methylphenidate HCl ER (CD) 10 MG 07/28/2021 12:00:00 AM EDT eCW1 ([facility]) pregabalin 200 MG Oral Capsule [Lyrica] 07/28/2021 12:00:00 AM EDT eCW1 ([facility]) Eszopiclone 2 MG Oral Tablet [Lunesta] 07/28/2021 12:00:00 AM EDT eCW1 ([facility]) 2500 MG Testosterone 0.0162 MG/MG Topical Gel [Androge l] 07/21/2021 12:00:00 AM EDT eCW1 ([facility]) Lorazepam 0.5 MG Oral Tablet 07/21/2021 12:00:00 AM EDT eCW1 ([facility]) 2500 MG Testosterone 0.0162 MG/MG Topical Gel [Androge l] 07/21/2021 12:00:00 AM EDT eCW1 ([facility]) Lorazepam 0.5 MG Oral Tablet 07/21/2021 12:00:00 AM EDT eCW1 ([facility]) Methylphenidate HCl ER (CD) 10 MG 07/01/2021 12:00:00 AM EDT eCW1 ([facility]) NITROFURANTOIN, MACROCRYSTALS 25 MG / Ni trofurantoin, Monohydrate 75 MG Oral Capsule 06/24/2021 12:00:00 AM EDT eCW1 ([facility]) NITROFURANTOIN, MACROCRYSTALS 25 MG / Ni trofurantoin, Monohydrate 75 MG Oral Capsule 06/24/2021 12:00:00 AM EDT eCW1 ([facility]) Lorazepam 0.5 MG Oral Tablet 06/22/2021 12:00:00 AM EDT eCW1 ([facility]) pregabalin 200 MG Oral Capsule [Lyrica] 06/22/2021 12:00:00 AM EDT eCW1 ([facility]) Lorazepam 0.5 MG Oral Tablet 06/22/2021 12:00:00 AM EDT eCW1 ([facility]) Methylphenidate HCl ER (CD) 10 MG 06/04/2021 12:00:00 AM EDT eCW1 ([facility]) Methylphenidate HCl ER (CD) 10 MG 06/04/2021 12:00:00 AM EDT eCW1 ([facility]) 2500 MG Testosterone 0.0162 MG/MG Topical Gel [Androge l] 06/01/2021 12:00:00 AM EDT eCW1 ([facility]) 2500 MG Testosterone 0.0162 MG/MG Topical Gel [Androge l] 06/01/2021 12:00:00 AM EDT eCW1 ([facility]) 2500 MG Testosterone 0.0162 MG/MG Topical Gel [Androge l] 06/01/2021 12:00:00 AM EDT eCW1 ([facility]) 2500 MG Testosterone 0.0162 MG/MG Topical Gel [Androge l] 06/01/2021 12:00:00 AM EDT eCW1 ([facility]) sildenafil 50 MG Oral Tablet [Viagra] 05/05/2021 12:00:00 AM EDT eCW1 ([facility]) sildenafil 50 MG Oral Tablet [Viagra] 05/05/2021 12:00:00 AM EDT eCW1 ([facility]) sildenafil 50 MG Oral Tablet [Viagra] 05/05/2021 12:00:00 AM EDT eCW1 ([facility]) Methylphenidate HCl ER (CD) 10 MG 05/05/2021 12:00:00 AM EDT eCW1 ([facility]) sildenafil 50 MG Oral Tablet [Viagra] 05/05/2021 12:00:00 AM EDT eCW1 ([facility]) Methylphenidate HCl ER (CD) 10 MG 05/05/2021 12:00:00 AM EDT eCW1 ([facility]) sildenafil 50 MG Oral Tablet [Viagra] 05/05/2021 12:00:00 AM EDT eCW1 ([facility]) Methylphenidate HCl ER (CD) 10 MG 05/05/2021 12:00:00 AM EDT eCW1 ([facility]) sildenafil 50 MG Oral Tablet [Viagra] 05/05/2021 12:00:00 AM EDT eCW1 ([facility]) Methylphenidate HCl ER (CD) 10 MG 05/05/2021 12:00:00 AM EDT eCW1 ([facility]) sildenafil 50 MG Oral Tablet [Viagra] 05/05/2021 12:00:00 AM EDT eCW1 ([facility]) Methylphenidate HCl ER (CD) 10 MG 05/05/2021 12:00:00 AM EDT eCW1 ([facility]) Methylphenidate HCl ER (CD) 10 MG 05/05/2021 12:00:00 AM EDT eCW1 ([facility]) sildenafil 50 MG Oral Tablet [Viagra] 05/05/2021 12:00:00 AM EDT eCW1 ([facility]) Methylphenidate HCl ER (CD) 10 MG 05/05/2021 12:00:00 AM EDT eCW1 ([facility]) sildenafil 50 MG Oral Tablet [Viagra] 05/05/2021 12:00:00 AM EDT eCW1 ([facility]) Methylphenidate HCl ER (CD) 10 MG 05/05/2021 12:00:00 AM EDT eCW1 ([facility]) sildenafil 50 MG Oral Tablet [Viagra] 05/05/2021 12:00:00 AM EDT eCW1 ([facility]) Methylphenidate HCl ER (CD) 10 MG 04/28/2021 12:00:00 AM EDT eCW1 ([facility]) Methylphenidate Hydrochloride 5 MG Oral Tablet 04/20/2021 12:00:00 AM EDT eCW1 ([facility]) Methylphenidate Hydrochloride 5 MG Oral Tablet 04/20/2021 12:00:00 AM EDT eCW1 ([facility]) Methylphenidate Hydrochloride 5 MG Oral Tablet 04/20/2021 12:00:00 AM EDT eCW1 ([facility]) Methylphenidate HCl ER (CD) 10 MG 03/13/2021 12:00:00 AM EDT eCW1 ([facility]) Methylphenidate HCl ER (CD) 10 MG 03/13/2021 12:00:00 AM EDT eCW1 ([facility]) Methylphenidate HCl ER (CD) 10 MG 03/13/2021 12:00:00 AM EDT eCW1 ([facility]) Methylphenidate HCl ER (CD) 10 MG 03/13/2021 12:00:00 AM EDT eCW1 ([facility]) Methylphenidate Hydrochloride 5 MG Oral Tablet 03/03/2021 12:00:00 AM EDT eCW1 ([facility]) Sulfasalazine 500 MG Delayed Release Oral Tablet 02/17/2021 12:00:0 0 AM EDT eCW1 ([facility]) Sulfasalazine 500 MG Delayed Release Oral Tablet 02/17/2021 12:00:0 0 AM EDT eCW1 ([facility]) Sulfasalazine 500 MG Delayed Release Oral Tablet 02/17/2021 12:00:0 0 AM EDT eCW1 ([facility]) Sulfasalazine 500 MG Delayed Release Oral Tablet 02/17/2021 12:00:0 0 AM EDT eCW1 ([facility]) Sulfasalazine 500 MG Delayed Release Oral Tablet 02/17/2021 12:00:0 0 AM EDT eCW1 ([facility]) Sulfasalazine 500 MG Delayed Release Oral Tablet 02/17/2021 12:00:0 0 AM EDT eCW1 ([facility]) Sulfasalazine 500 MG Delayed Release Oral Tablet 02/17/2021 12:00:0 0 AM EDT eCW1 ([facility]) Methylphenidate Hydrochloride 5 MG Oral Tablet 02/05/2021 12:00:00 AM EDT eCW1 ([facility]) Methylphenidate Hydrochloride 5 MG Oral Tablet 02/05/2021 12:00:00 AM EDT eCW1 ([facility]) Methylphenidate Hydrochloride 5 MG Oral Tablet 01/07/2021 12:00:00 AM EST eCW1 ([facility]) Methylphenidate Hydrochloride 5 MG Oral Tablet 01/07/2021 12:00:00 AM EST eCW1 ([facility]) Methylphenidate Hydrochloride 5 MG Oral Tablet 01/07/2021 12:00:00 AM EST eCW1 ([facility]) Methylphenidate Hydrochloride 5 MG Oral Tablet 01/07/2021 12:00:00 AM EST eCW1 ([facility]) Methylphenidate Hydrochloride 5 MG Oral Tablet 12/12/2020 12:00:00 AM EST eCW1 ([facility]) Diclofenac Sodium 0.01 MG/MG Topical Gel [Voltaren] 12/02/19 12:00:00 AM EST eCW1 ([facility]) Diclofenac Sodium 0.01 MG/MG Topical Gel [Voltaren] 12/02/19 12:00:00 AM EST eCW1 ([facility]) Methylphenidate Hydrochloride 10 MG Oral Tablet 11/03/2020 12:00:00 AM EST eCW1 ([facility]) Methylphenidate Hydrochloride 10 MG Oral Tablet 11/03/2020 12:00:00 AM EST eCW1 ([facility]) Methylphenidate Hydrochloride 10 MG Oral Tablet 10/20/2020 12:00:00 AM EST eCW1 ([facility]) Methylphenidate Hydrochloride 10 MG Oral Tablet 10/20/2020 12:00:00 AM EST eCW1 ([facility]) Methylphenidate Hydrochloride 10 MG Oral Tablet 10/20/2020 12:00:00 AM EST eCW1 ([facility]) Methylphenidate Hydrochloride 10 MG Oral Tablet 10/20/2020 12:00:00 AM EST eCW1 ([facility]) Methylphenidate HCl ER ([place]) 10 MG 10/17/2020 12:00:00 AM EST eCW1 ([facility]) Methylphenidate Hydrochloride 5 MG Oral Tablet 10/02/2020 12:00:00 AM EST eCW1 ([facility]) atorvastatin 20 MG Oral Tablet 08/01/2020 12:00:00 AM EDT eCW1 ([facility]) atorvastatin 20 MG Oral Tablet 08/01/2020 12:00:00 AM EDT eCW1 ([facility]) atorvastatin 20 MG Oral Tablet 08/01/2020 12:00:00 AM EDT eCW1 ([facility]) atorvastatin 20 MG Oral Tablet 08/01/2020 12:00:00 AM EDT eCW1 ([facility]) atorvastatin 20 MG Oral Tablet 08/01/2020 12:00:00 AM EDT eCW1 ([facility]) atorvastatin 20 MG Oral Tablet 08/01/2020 12:00:00 AM EDT eCW1 ([facility]) atorvastatin 20 MG Oral Tablet 08/01/2020 12:00:00 AM EDT eCW1 ([facility]) atorvastatin 20 MG Oral Tablet 08/01/2020 12:00:00 AM EDT eCW1 ([facility]) atorvastatin 20 MG Oral Tablet 08/01/2020 12:00:00 AM EDT eCW1 ([facility])
[2021-09-03] MEDS ORDERED: AZITHROMYCIN 250MG TABLET PO ONE (13:05)
[2021-09-03] MEDS ORDERED: HYDROMORPHONE HCL 0.5 MG/ 0.5 ML SYRINGE (J1170 PER 1) IV PRN (13:20)
--- NOTE | 2021-09-03 13:51 | REP ---
INDICATION: RULE OUT NEPHROLITHIASIS. COMPARISON: 08/24/2016 TECHNIQUE: Real-time sonographic evaluation of the kidneys with Doppler FINDINGS: Multiple ultrasonographic images of the right kidney show the right kidney to measure 10.3 x 4.8 x 5.1 cm. The renal cortical echotexture is unremarkable. There are no masses. There is good corticomedullary differentiation. There is no hydronephrosis. There are no perinephric fluid collections. Multiple ultrasonographic images of the left kidney show the left kidney to measure 10 x 4.8 x 5.6 cm. The renal cortical echotexture is unremarkable. There are no masses. There is good corticomedullary differentiation. There is no hydronephrosis. There are no perinephric fluid collections. In the superior pole region of the left kidney there is a 4 mm sized echogenic focus. In the inferior pole region of the left kidney there is a 3 mm sized echogenic focus. IMPRESSION: Non-obstructing left nephroliths are suspected as described above. The examination is otherwise unremarkable <Electronically signed by Tato Perea > 09/03/21 [id number]
--- NOTE | 2021-09-03 13:54 | REP ---
INDICATION: LEFT SIDED SCROTAL PAIN. COMPARISON: None. TECHNIQUE: Real-time sonographic evaluation of the testicles FINDINGS: The right testicle measures 3.3 x 1.5 x 2.1 cm and the left testicle measures 3.7 x 1.3 x 2.2 cm. The testicular parenchymal echo pattern and vascular pattern is within normal limits bilaterally. The right testicular RI is 0.59 and the left is 0.56. There is no hydrocele, varicocele, or spermatocele. IMPRESSION: Within normal limits <Electronically signed by Tato Perea > 09/03/21 [id number]
--- NOTE | 2021-09-03 14:13 | HPEPDOC ---
General Date of Admission Sep 03, 2021 at 12:34 Date of Service: Sep 03, 2021 Attending Physician: JOSE EDUARDO SAUNDERS MD Chief Complaint The patient is a 56-year-old male admitted with a reason for visit of Groin Pain, Intractable Low Back Pain. History of Present Illness History of present illness: Mr. Irby is a 56 year old male who presented to the emergency department for severe left sided back pain with radiation into his left leg and groin. He reports experiencing the left sided back pain last night around 10pm while he was walking and states that it was so severe that it "brought him to his knees". The pain radiates to his left hip and down his left leg both laterally and medially into his left testicle. He rates the pain as a 10/10 and finds it more comfortable to be in a seated position. He denies numbness of his genitals or loss of bowel or bladder. He reports pain with urination for the last day and pain/burning with ejaculation for the last 6 months. He is sexually active with one male partner and states that he uses protection consistently. He has sex once every few months because he has decreased libido and difficulty maintaining an erection but has noticed it is painful when he ejaculates. He denies a history of sexually transmitted infections and states his partner had syphilis and was treated for it successfully. He denies fevers, chills, night sweats, fatigue, changes in weight, muscle weakness, or acute numbness/tingling. In the ED he was found to have imaging exhibiting degenerative disc disease and spondylosis. At L5/S1, changes contributing to severe bilateral neural foraminal narrowing. He was given valium, toradol, morphine, and dilaudid and continued to have 10/10 pain. He was admitted for intractable pain. Past medical history: Hypogonadotrophic hypogonadism Osteopenia Dyspepsia Erectile dysfunction Depression Paroxysmal atrial [id number]-[id number]: 0 Cervical spondylosis Thoracic spondylosis Lumbar spondylosis Obstructive sleep apnea Hyperlipidemia Hypothyroidism Past surgical history: Right carpal tunnel release Lithotripsy (ESWL) Social history: Patient denies tobacco or illicit drug use Patient drinks alcohol occasionally Patient has a history of opioid and morphine abuse- currently on suboxone Family history: reviewed and non-contributory Allergies: see below Review of systems: General: denies fevers, chills, night sweats, fatigue, changes in weight HEENT: denies changes in vision, difficulty swallowing, swollen glands Cardiovascular: denies chest pain or palpitations Pulmonary: denies shortness of breath, cough, pain with inspiration, wheezing Abdomen: denies nausea, vomiting, diarrhea, blood in urine or stool : admits to burning with urination and ejaculation, denies blood in ejaculate, admits to pain in left testicle. Denies numbness of genitals, loss of bowel or bladder Back: admits to left lower back pain that radiates into left hip, groin, and leg. Extremities: admits to occasional numbness of feet, denies muscle weakness or current numbness/tingling of extremities. Skin: denies rashes Physical examination: General: A male appearing his stated age sitting in chair who appears to be uncomfortable and anxious HEENT: PERRLA, EOMI, mucous membranes moist and pink, no lymphadenopathy, neck is supple Cardiovascular: Bradycardic rate and regular rhythm, no murmurs, rubs, or gallops noted. Pulmonary: clear to auscultation bilaterally, equal air intake bilaterally, no wheezes, rhonchi, or rales. Abdomen: soft, mild tenderness to deep palpation in left lower quadrant, no organomegaly, positive bowel sounds Back: no CVA tenderness, mild tenderness to lower back along SI joint on left side. : tenderness to palpation of left testicle, testicle does not appear edematous or erythematous. Extremities: negative straight leg test, strength 5/5 with full sensation throug hout, no edema, capillary refill <2 seconds. Skin: tattoos noted. Skin is dry and warm Imaging: Vascular u/s: No evidence of left lower extremity deep vein thrombosis. Lumbar spine MRI: Degenerative disc disease and spondylosis. At L5/S1, changes contribute to severe bilateral neural foraminal narrowing. Abdomen/pelvis CT:The liver, gallbladder, spleen, pancreas, adrenal glands, and kidneys are again seen to be within normal limits. The abdominal aorta and para-aortic regions are again seen to be within normal limits. Respiratory motion artifact obscures multiple images particularly obscuring the cortez of multiple bowel loops. This is to such a degree that a small amount of free air could be obscured. There is no gross free air. There is no evidence of free fluid. There is no evidence of a mass or adenopathy. Grossly, the bowel loops are unremarkable. Renal u/s:Non-obstructing left nephroliths are suspected as described above. The examination is otherwise unremarkable scrotum u/s: The right testicle measures 3.3 x 1.5 x 2.1 cm and the left testicle measures 3.7 x 1.3 x 2.2 cm. The testicular parenchymal echo pattern and vascular pattern is within normal limits bilatera lly. The right testicular RI is 0.59 and the left is 0.56. There is no hydrocele, varicocele, or spermatocele. Assessment:Mr. Irby is a 56 year old male with past medical history of Hypogonadotrophic hypogonadism, Osteopenia, Dyspepsia, hypothyroidism, hyperlipidemia, Erectile dysfunction, Depression, anxiety, paroxysmal atrial [id number]-[id number]: 0, Cervical spondylosis, Thoracic spondylosis, Lumbar spondylosis, and Obstructive sleep apnea who presented to the emergency department for severe left sided back pain with radiation into his left leg and groin. In the ED he was found to have intractible pain and admitted for pain management as well as further workup for testicular pain. Plan: Left hip pain -patienet has history of Lumbar spondylosis with mild bulging discs -with radiation into left leg and groin -Likely secondary to severe bilateral neural foraminal narrowing at L5/S1 -patient states pain is improved in a seated position -negative straight leg test -continue with dilaudid 0.5mg q 3 hours for severe pain -Full strength and sensation of bilateral lower extremities on physical exam -continue pregabalin Left testicular pain: epididymitis vs orchitis vs nephrolithiasis -renal u/s negative for obstructing nephrolithiasis -scrotal u/s negative for hydrocele, varicocele, or spermatocele with normal vascular patterns seen -started patient on levofloxacin as he is over 35 and sexually active with one partner/uses consistent protection -Gave 1 dose of azithromycin 1gm -syphilis and HIV are negative -Chlamydia/GC amplification pending -Patient admits to having dysuria and pain with ejaculation. -PSA pending. -Mild leukocytosis of 10.8 Hypogonadotrophic hypogonadism -Continue home medications -monitor vitals Erectile dysfunction -holding home androgel as pharmacy does not stock this product Depression/anxiety -continue home medications Hypothyroidism -continue home medication Hyperlipidemia -continue home medication Paroxysmal atrial [id number]-[id number]-FHWN: 0 -patient is currently in sinus rhythm at rate of 58 Obstructive sleep apnea DVT prophylaxis: -continue heparin Disposition: Patient is currently stable. Will continue to manage his pain. Chlamydia/GC amplification and PSA pending. Home Medications Scheduled Atorvastatin Calcium (Atorvastatin Calcium) 20 Mg Tab, 20 MG PO DAILY, (Reported) Buprenorphine HCl/Naloxone HCl (Suboxone 12 mg-3 mg Sl Film) 1 Each Film, 2 STRIP SL DAILY, (Reported) PT ONLY BEEN TAKING 1 FILM Calcium Carbonate (Calcium) 600 Mg Tablet, 1 TAB PO DAILY, (Reported) Cholecalciferol (Vitamin D3) (Vitamin D3) 50 Mcg Capsule, 50 MCG PO DAILY, (Reported) Hydrocortisone (Hydrocortisone) 10 Mg Tablet, 20 MG PO DAILY, (Reported) 10MG IN AM, 1/2 IN AFTERNOON, 1/2 AT NIGHT Levothyroxine Sodium (Levoxyl) 125 Mcg Tab, 125 MCG PO DAILY, (Reported) Lorazepam (Ativan) 0.5 Mg Tablet, 0.5 MG PO BID, (Reported) Methylphenidate Hcl (Methylphenidate HCl Cd) 10 Mg Cpbp.30.70, 10 MG PO BID, (Reported) Methylprednisolone (Medrol) 8 Mg Tablet, 8 MG PO ASDIRECTED 4 tabs x 2days then 3tabs x 2days then 2tabsx 2 days then 1tab x2days then stop Pregabalin (Pregabalin) 200 Mg Capsule, 200 MG PO BID, (Reported) Testosterone (Androgel) 40.5 Mg/2.5 Gm Gel, 1 PKT TOP DAILY, (Reported) APPLY TO STOMACH Venlafaxine HCl (Venlafaxine HCl ER) 75 Mg Capcr, 75 MG PO DAILY, (Reported) Scheduled PRN Eszopiclone (Lunesta) 2 Mg Tab, 2 MG PO QHS PRN for SLEEP, (Reported) Ketorolac Tromethamine (Ketorolac Tromethamine) 10 Mg Tablet, 10 MG PO TIDP PRN for PAIN LEVEL 5-10 Oxycodone HCl (Oxycodone HCl) 5 Mg Tablet, 1-2 TAB PO Q6HP PRN for PAIN LEVEL 5- 10 Tizanidine HCl (Tizanidine HCl) 4 Mg Tablet, 2 MG PO TIDP PRN for MUSCLE SPASMS Allergies Coded Allergies: Penicillins (Verified Allergy, Unknown, 11/30/19) swelling cyclobenzaprine (Verified Adverse Reaction, Unknown, 11/30/19) A-FIB/CHADSVASC A-FIB History Current/History of A-Fib/PAF?: Yes Current PO Anticoag Therapy: No Vital Signs Vital Signs Date Time Temp Pulse Resp B/P (MAP) Pulse Ox O2 Delivery O2 Flow Rate FiO2 09/03/21 13:39 16 09/03/21 11:13 97.2 51 134/73 (93) 100 Room Air Laboratory Data Labs 24H Laboratory Tests 2 09/03/21 07:42: Urine Color YELLOW, Urine Appearance CLEAR, Urine pH 5.0, Urine Specific [place] 1.025, Urine Protein NEGATIVE, Urine Glucose (UA) NEGATIVE, Urine Ketones NEGATIVE, Urine Blood NEGATIVE, Urine Nitrite NEGATIVE, Urine Bilirubin NEGATIVE, Urine Urobilinogen 0.2, Urine Leukocyte Esterase NEGATIVE, Urine WBC (Auto) 1, Urine RBC (Auto) 0, Urine Hyaline Casts (Auto) 0, Urine Bacteria (Auto) NEGATIVE, Urine Squamous Epithelial Cells 0, Urine Mucus (Auto) SMALL, Urine Sperm (Auto) 09/03/21 07:44: 09/03/21 07:50: Immature Granulocyte % (Auto) 0.3, Neutrophils (%) (Auto) 51.3, Lymphocytes (%) (Auto) 36.8, Monocytes (%) (Auto) 9.6H, Eosinophils (%) (Auto) 1.3, Basophils (%) (Auto) 0.7, Neutrophils # (Auto) 5.5, Lymphocytes # (Auto) 4.0, Monocytes # (Auto) 1.0H, Eosinophils # (Auto) 0.1, Basophils # (Auto) 0.1, Nucleated Red Blood Cells % (auto) 0.0, Erythrocyte Sedimentation Rate 2, Magnesium Level 2.4, Total Bilirubin 0.5, Direct Bilirubin 0.1, Aspartate Amino Transf (AST/SGOT) 41H, Alanine Aminotransferase (ALT/SGPT) 38, Alkaline Phosphatase 127H, C- Reactive Protein, Quantitative < 0.30, Total Protein 7.8, Albumin 3.8, Albumin/Globulin Ratio 1.0 09/03/21 07:52: POC Glucose (Misc Panel) 96, POC Sodium (Misc Panel) 140, POC Potassium (Misc Panel) 3.8, POC Chloride (Misc Panel) 99, POC Total CO2 (Misc Panel) 28.0H, POC Blood Urea Nitrogen (Misc Panel 16, POC Ionized Calcium (Misc Panel) 4.6, POC Creatinine (Misc Panel) 0.9, POC Hematocrit (Misc Panel) 51.0 09/03/21 13:41: 09/03/21 13:47: CBC/BMP Laboratory Tests 09/03/21 07:50 Plan / VTE VTE Prophylaxis Ordered?: Yes GME ATTESTATION GME ATTESTATION My faculty preceptor for this patient encounter was physically present during the encounter and was fully available. All aspects of the patient interview, examination, medical decision making process, and medical care plan development were reviewed and approved by the faculty preceptor. The faculty preceptor is aware and concurs with the plan as stated in the body of this note and will attest to such by his/her cosignature. ATTENDING NOTE I, Jose Eduardo Saunders MD, have independently examined this patient and performed my own physical exam with the medical students and residents in the room with me, as well as reviewed the documentation and edited where necessary. I have discussed in detail with the resident and student the findings and plan of treatment as documented and edited their note. I agree with their findings and treatment plan and have edited their documentation. RICKY STEWART DO Sep 03, 2021 14:13 JOSE EDUARDO SAUNDERS MD Sep 11, 2021 14:54
[2021-09-03 14:21] LABS: HIV 1&2 SCREEN CENTAUR NEGATIVE (NEGATIVE)
[2021-09-03 14:55] LABS: RSV AMPLIFICATION NEGATIVE (NEGATIVE)
[2021-09-03] MEDS ORDERED: HYDROCORTISONE 5MG TABLET PO SCH (16:00)
[2021-09-03] MEDS: LevoFLOXacin 500 MG TABLET PO SCH (16:05)
[2021-09-03] MEDS: HYDROMORPHONE HCL 0.5 MG/ 0.5 ML SYRINGE (J1170 PER 1) IV PRN ×2 (16:46→20:48)
[2021-09-03] MEDS: ATORVASTATIN 20 MG TAB PO SCH (18:03)
[2021-09-03] MEDS: DOCUSATE SODIUM 100MG CAPSULE PO SCH ×2 (18:03→20:46)
[2021-09-03] MEDS: VENLAFAXINE **XR** 75MG CAPSULE PO SCH (18:04)
[2021-09-03 18:45] VITALS: BP 143/91
[2021-09-03] MEDS: PREGABALIN 100 MG CAP (LYRICA) PO SCH (20:46)
[2021-09-03] MEDS: LORazepam 0.5 MG TAB PO SCH (20:47)
[2021-09-03] MEDS: ACETAMINOPHEN TAB 650MG DOSE (2X325MG) PO PRN (20:47)
[2021-09-03] MEDS ORDERED: HYDROCORTISONE 10 MG TAB PO SCH (20:58)
[2021-09-03] MEDS ORDERED: LORazepam 0.5 MG TAB PO SCH (21:00)
[2021-09-03] MEDS ORDERED: PILL CUTTER 1 EACH XX PRN (21:00)
[2021-09-03] MEDS: HEPARIN SOD (PORCINE) 5000UNITS/ML 1ML VIAL/SYRINGE SC SCH (21:57)
[2021-09-03] MEDS: HYDROCORTISONE 10 MG TAB PO SCH (21:58)
[2021-09-03 22:00] VITALS: BP 121/86
[2021-09-03] MEDS ORDERED: MORPHINE 2 MG/ML 1ML VIAL (J2270) IV PRN (22:20)
[2021-09-04] MEDS ORDERED: ANALGESIC BALM CRM 3OZ TOP PRN (04:00)
[2021-09-04] MEDS ORDERED: MORPHINE 4 MG/ML 1ML VIAL/SYRINGE (J2270) IV PRN (04:05)
[2021-09-04] MEDS ORDERED: MORPHINE 4 MG/ML 1ML VIAL/SYRINGE (J2270) IV ONE ×2 (04:05→18:35)
--- NOTE | 2021-09-04 04:08 | IPNPDOC ---
Text Note Date of Service Significant event NOTE Notified by nurse patient had improvement from morphine over Dilaudid and requesting switch. Ordered morphine as needed. Later in shift patient reported uncontrolled pain. Upon further history review, patient with a substance use in past and on Suboxone with naloxone. 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 Discussed with pharmacy regarding use of morphine concomitantly given the recent Suboxone dosing and increased morphine dosing with parameters. Possible later today as the Suboxone/ naloxone wears off he would have improved response to lower dosing. Monitor patient response and encourage nonopioid adjunct treatments as able. VS,Fishbone, I+O VS, Fishbone, I+O Laboratory Tests 09/03/21 07:50 Vital Signs Date Time Temp Pulse Resp B/P (MAP) Pulse Ox O2 Delivery O2 Flow Rate FiO2 09/04/21 02:06 16 09/03/21 22:00 98.7 66 121/86 (98) 98 Room Air I&O- Last 24 Hours up to 6 AM 09/04/21 06:00 Intake Total 850 ml Balance 850 ml MIREYA PEREZ NP Sep 04, 2021 04:08
[2021-09-04 06:00] VITALS: BP 120/83
[2021-09-04 06:25] LABS: HEMATOCRIT 46.8 % (42.0-52.0); HEMOGLOBIN 16.4 g/dl (13.5-17.5); MEAN CORPUSCULAR HEMOGLOBIN 32.8 pg (27.0-33.0); MEAN CORPUSCULAR VOLUME 93.6 fl (80.0-96.0); PLATELET COUNT, AUTOMATED 269 10^3/uL (150-450); WHITE BLOOD COUNT 8.1 10^3/uL (4.0-10.0)
[2021-09-04] MEDS: carisoprodoL 350 MG TAB PO PRN ×3 (06:42→20:57)
[2021-09-04] MEDS: HEPARIN SOD (PORCINE) 5000UNITS/ML 1ML VIAL/SYRINGE SC SCH ×3 (06:43→20:57)
[2021-09-04] MEDS: KETOROLAC TROMETHAMINE 10 MG TAB PO PRN ×3 (06:43→20:57)
[2021-09-04] MEDS: LEVOTHYROXINE 125MCG TABLET (0.125MG) PO SCH (06:43)
[2021-09-04 07:06] LABS: ALBUMIN 3.6 GM/DL (3.2-5.2); ALT/SGPT 35 U/L (12-78); BILIRUBIN,TOTAL 0.4 MG/DL (0.2-1.0); BLOOD UREA NITROGEN 14 MG/DL (7-18); CARBON DIOXIDE LEVEL 29 MEQ/L (21-32); CHLORIDE LEVEL 105 MEQ/L (98-107); CREATININE FOR GFR 0.92 MG/DL (0.70-1.30); GLOMERULAR FILTRATION RATE > 60.0 (>56); GLUCOSE, FASTING 95 MG/DL (70-100); POTASSIUM SERUM 4.5 MEQ/L (3.5-5.1); SODIUM LEVEL 140 MEQ/L (136-145); TOTAL PROTEIN 7.1 GM/DL (6.4-8.2)
[2021-09-04] MEDS: LevoFLOXacin 500 MG TABLET PO SCH (08:27)
[2021-09-04] MEDS: PREGABALIN 100 MG CAP (LYRICA) PO SCH ×2 (08:27→20:57)
[2021-09-04] MEDS: ATORVASTATIN 20 MG TAB PO SCH (08:27)
[2021-09-04] MEDS: DOCUSATE SODIUM 100MG CAPSULE PO SCH ×2 (08:27→20:57)
[2021-09-04] MEDS: LORazepam 0.5 MG TAB PO SCH ×2 (08:27→15:34)
[2021-09-04] MEDS: HYDROCORTISONE 10 MG TAB PO SCH ×3 (08:27→20:57)
[2021-09-04] MEDS: VENLAFAXINE **XR** 75MG CAPSULE PO SCH (08:27)
[2021-09-04] MEDS: ACETAMINOPHEN TAB 650MG DOSE (2X325MG) PO PRN (08:31)
--- NOTE | 2021-09-04 10:58 | REP ---
INDICATION: left hip pain. COMPARISON: CT 09/03/2021 TECHNIQUE: AP pelvis and two view hip FINDINGS: Slight joint space narrowing superiorly. Sclerosis acetabular roof and round the margin of the acetabulum inferiorly. Small subchondral cysts in the acetabular roof peripherally. There is no AVN or fracture. There is a rim osteophyte on the femoral head. Femoral head neck intertrochanteric region and subtrochanteric femur without fracture. The AP pelvis shows the pelvic ring intact. SI joints sacral ala and foramina unremarkable. Facet arthropathy at L5-S1. There is hip arthritis on both sides with sclerosis of the acetabulum and subchondral cysts as well as femoral head osteophytes in a symmetric fashion. IMPRESSION: 1. Bilateral hip osteoarthritis with subchondral sclerosis and cystic change acetabular roof and rim osteophytes femoral head. No AVN fracture or other acute bony finding of the hip. 2. Pelvic ring intact. SI joints and sacrum unremarkable. 3. Facet arthropathy lower lumbar spine. <Electronically signed by Sebastien Pickard > 09/04/21 [id number]
--- NOTE | 2021-09-04 11:00 | REP ---
INDICATION: left hip pain. COMPARISON: Pelvis and left hip x-ray 09/04/2021, CT pelvis 09/03/2021. TECHNIQUE: Oblique and pelvic inlet views. FINDINGS: SI joints symmetric and normal with without erosion or sclerosis on either side of the joint. Sacral ala and foramina symmetric and normal. There is some facet arthropathy at L4-5 and greater at L5-S1. Pelvic ring intact on the oblique views. That portion of iliac wing observed was unremarkable. IMPRESSION: 1. Normal SI joints without erosions, sclerosis or narrowing. 2. Facet arthropathy at L4-5 and greater at L5-S1. <Electronically signed by Sebastien Pickard > 09/04/21 [id number]
--- NOTE | 2021-09-04 11:28 | IPNPDOC ---
Text Note Date of Service The patient was seen on 09/04/21. NOTE Subjective: Patient was examined at bedside. He reports his pain is now localized to his left lower extremity and is located deep to his quadriceps muscle. The pain is described as a "pressure" and is minimally relieved by massaging the area. 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 He states that his pain was so bad last night that it made him cry. He denies muscle weakness, numbness, tingling, loss of bowel or bladder, or genital numbness. He admits to minimal pain in left hip and left testicle. His vital signs are stable today. Objective: Vitals: See below General: Mr. Irby is sitting in a chair rubbing his left thigh, he appears uncomfortable HEENT: PERRLA, EOMI, mucous membranes moist and pink, no lymphadenopathy, neck is supple Cardiovascular: Bradycardic rate and regular rhythm, no murmurs, rubs, or gallops noted. Pulmonary: clear to auscultation bilaterally, equal air intake bilaterally, no wheezes, rhonchi, or rales. Abdomen: soft, mild tenderness to deep palpation in left lower quadrant, no organomegaly, positive bowel sounds Back: no CVA tenderness, no tenderness to lower back along SI joints bilaterally Extremities: No edema or cyanosis, patient has full range of motion at hip, knee, and ankle joint of left lower extremity, strength 5/5 with full sensation throughout, capillary refill <2 seconds. Patellar and achilles reflexes are 2+. There is mild tenderness to deep palpation of the left quadriceps muscle. Skin: tattoos noted. Skin is dry and warm. The skin overlying left lower extremity does not appear erythematous. Assessment: Mr. Irby is a 56 year old male with past medical history of Hypogonadotrophic hypogonadism, Osteopenia, Dyspepsia, hypothyroidism, hyperlipidemia, Erectile dysfunction, Depression, anxiety, paroxysmal atrial [id number]-[id number]: 0, Cervical spondylosis, Thoracic spondylosis, Lumbar spondylosis, and Obstructive sleep apnea who presented to the emergency department for severe left sided back pain with radiation into his left leg and groin. In the ED he was found to have intractible pain and admitted for pain management as well as further workup for testicular pain. In the ED he was found to have imaging exhibiting degenerative disc disease and spondylosis. At L5/S1, changes contributing to severe bilateral neural foraminal narrowing. He was given valium, toradol, morphine, and dilaudid and continued to have 10/10 pain. He was admitted for intractable pain. Plan: Intractable pain of left thigh -patient reports the pain has migrated deep to his left quadriceps -MRI of lumbar spine exhibits severe bilateral neural forminal narrowing at L5/S1, this would not explain patient's thigh pain. -patient reports minimal left hip and testicular pain today. -renal u/s and scrotal u/s negative for acute pathology -Hip x-ray exhibited: Bilateral hip osteoarthritis with subchondral sclerosis and cystic changes of acetabular roof and rim osteophytes of femoral head. -pain is minimally improved by sitting and deep massage to area. -Full strength, range of motion, and sensation of bilateral lower extremities on physical exam. L4 and S1 reflexes 2+. -stopped morphine and dilaudid. Patient states he rates his pain as a 10/10 despite the pain medications -started norco 5/325 q 4 hours for severe pain and toradol IV for mild pain. -Will continue soma, Bengay, and heating pad. -Patient chronically takes hydrocortisone and has history of osteopenia, ordered MRI of femur to r/o fracture. -A1C: 5.2 to rule out diabetic muscle infarction -Creatinine Kinase WNL -PSA pending -ESR/CRP Left testicular pain: likely secondary to referred pain from lumbar spine -patient reports a decrease in left testicular pain today. -renal u/s negative for obstructing nephrolithiasis -scrotal u/s negative for hydrocele, varicocele, or spermatocele with normal vascular patterns seen -discontinued levofloxacin as its no longer indicated with negative imaging -Gave 1 dose of azithromycin 1gm -syphilis, chlamydia, GC, and HIV are negative -Patient admits to having pain with ejaculation. -PSA pending. -WBC 8.1 Hypogonadotrophic hypogonadism -Continue home medications -monitor vitals Erectile dysfunction -holding home androgel as pharmacy does not stock this product Depression/anxiety -continue home medications Hypothyroidism -continue home medication Hyperlipidemia -continue home medication Paroxysmal atrial xiaqwphojitr-[id number]-MYHC: 0 -patient is currently in sinus rhythm at rate of 58 Obstructive sleep apnea DVT prophylaxis: -continue heparin Disposition: Patient continues to report 10/10 pain. We changed his pain medication and will monitor him. Waiting on results of MRI of left femur to rule out fracture or infection. VS,Fishbone, I+O VS, Fishbone, I+O Laboratory Tests 09/04/21 06:12 Vital Signs Date Time Temp Pulse Resp B/P (MAP) Pulse Ox O2 Delivery O2 Flow Rate FiO2 09/04/21 06:00 97.8 69 20 120/83 (95) 97 Room Air I&O- Last 24 Hours up to 6 AM 09/04/21 06:00 Intake Total 1150 ml Balance 1150 ml GME ATTESTATION GME ATTESTATION My faculty preceptor for this patient encounter was physically present during the encounter and was fully available. All aspects of the patient interview, examination, medical decision making process, and medical care plan development were reviewed and approved by the faculty preceptor. The faculty preceptor is aware and concurs with the plan as stated in the body of this note and will attest to such by his/her cosignature. ATTENDING NOTE I, Tori Freire MD, have independently examined this patient and performed my own physical exam with the medical students and residents in the room with me, as well as reviewed the documentation and edited where necessary. I have discussed in detail with the resident and student the findings and plan of treatment as documented and edited their note. I agree with their findings and treatment plan and have edited their documentation. RICKY STEWART DO Sep 04, 2021 11:28 TORI FREIRE MD Sep 11, 2021 14:57
[2021-09-04] MEDS: NORCO, ANEXSIA 5/325MG TABLET (HYDROcodone/ACETAMINOPHEN) PO PRN ×3 (11:30→19:46)
[2021-09-04 13:54] LABS: HEMOGLOBIN A1c 5.2 %
[2021-09-04 14:00] VITALS: BP 119/77
[2021-09-04 14:36] LABS: GC DNA AMPLIFICATION NEGATIVE (NEGATIVE)
[2021-09-04] MEDS: LIDOCAINE 5% (LIDODERM) PATCH TOP SCH (18:56)
[2021-09-04] MEDS: RAMELTEON 8 MG TAB (ROZEREM) PO PRN (20:57)
[2021-09-04] MEDS: **NOTE PATIENT COMMENT** MISC XX SCH (21:00)
[2021-09-04] MEDS ORDERED: LORazepam 2 MG/ML VIAL IV STA (21:29)
[2021-09-04] MEDS ORDERED: PROHANCE 279.3MG/ML 15ML VIAL As Ordered ONE (21:36)
[2021-09-04 22:00] VITALS: BP 128/74
[2021-09-04 23:12] LABS: PSA % FREE 9.8 % (.); PSA FREE 0.46 ng/mL; PSA TOTAL 4.7 ng/mL (0.0-4.0)
[2021-09-05] MEDS: HEPARIN SOD (PORCINE) 5000UNITS/ML 1ML VIAL/SYRINGE SC SCH ×3 (04:24→21:25)
[2021-09-05] MEDS: carisoprodoL 350 MG TAB PO PRN ×3 (04:24→17:27)
[2021-09-05] MEDS: NORCO, ANEXSIA 5/325MG TABLET (HYDROcodone/ACETAMINOPHEN) PO PRN ×5 (04:25→20:17)
[2021-09-05] MEDS: LEVOTHYROXINE 125MCG TABLET (0.125MG) PO SCH (04:26)
[2021-09-05 06:00] VITALS: BP 145/72
[2021-09-05 06:46] LABS: HEMATOCRIT 46.7 % (42.0-52.0); HEMOGLOBIN 16.3 g/dl (13.5-17.5); MEAN CORPUSCULAR HEMOGLOBIN 32.4 pg (27.0-33.0); MEAN CORPUSCULAR HGB CONC 34.9 g/dl (32.0-36.5); MEAN CORPUSCULAR VOLUME 92.8 fl (80.0-96.0); PLATELET COUNT, AUTOMATED 258 10^3/uL (150-450); RED BLOOD COUNT 5.03 10^6/uL (4.30-6.10); WHITE BLOOD COUNT 7.2 10^3/uL (4.0-10.0)
[2021-09-05] MEDS ORDERED: MORPHINE 4 MG/ML 1ML VIAL/SYRINGE (J2270) IV ONE (06:50)
[2021-09-05 07:14] LABS: ALBUMIN 3.6 GM/DL (3.2-5.2); ALT/SGPT 35 U/L (12-78); BILIRUBIN,TOTAL 0.4 MG/DL (0.2-1.0); BLOOD UREA NITROGEN 19 MG/DL (7-18); CALCIUM LEVEL 9.3 MG/DL (8.5-10.1); CARBON DIOXIDE LEVEL 27 MEQ/L (21-32); CHLORIDE LEVEL 106 MEQ/L (98-107); GLOMERULAR FILTRATION RATE > 60.0 (>56); GLUCOSE, FASTING 102 MG/DL (70-100); POTASSIUM SERUM 4.2 MEQ/L (3.5-5.1); SODIUM LEVEL 141 MEQ/L (136-145); TOTAL PROTEIN 7.2 GM/DL (6.4-8.2)
[2021-09-05] MEDS: LIDOCAINE 5% (LIDODERM) PATCH TOP SCH (08:18)
[2021-09-05] MEDS: VENLAFAXINE **XR** 75MG CAPSULE PO SCH (08:20)
[2021-09-05] MEDS: PREGABALIN 100 MG CAP (LYRICA) PO SCH ×2 (08:20→20:16)
[2021-09-05] MEDS: ATORVASTATIN 20 MG TAB PO SCH (08:22)
[2021-09-05] MEDS: MELOXICAM (MOBIC) 7.5 MG TAB PO SCH (08:22)
[2021-09-05] MEDS: HYDROCORTISONE 10 MG TAB PO SCH ×3 (08:22→20:16)
[2021-09-05] MEDS: DOCUSATE SODIUM 100MG CAPSULE PO SCH ×2 (08:23→20:15)
[2021-09-05] MEDS: LORazepam 0.5 MG TAB PO SCH ×2 (08:23→14:43)
[2021-09-05] MEDS ORDERED: LIDOCAINE 5% (LIDODERM) PATCH TOP SCH (09:00)
--- NOTE | 2021-09-05 09:19 | IPNPDOC ---
Text Note Date of Service The patient was seen on 09/05/21. NOTE SUBJECTIVE: Patient was seen and examined this morning at bedside. He states he continues to have severe pain in the left thigh. He states it feels like a balloon is blown up too much within his thigh. He reports that overnight he did have some relief from the pain medication he was given. He states he meds twice the most relief he has had since admission. Prior to change of shift, we had increased his Rentz from 1 tab every 4 hours as needed to 2 tabs every 4 hours as needed. He appears to have gotten this twice overnight along with his Soma which she had already been receiving. I also asked patient if he has any intake of raw or undercooked meat and he denies this. OBJECTIVE: VITAL SIGNS: See below GENERAL: Alert, sitting up in a chair, holding left thigh, appears uncomfortable. In no acute respiratory distress. HEENT: Normocephalic, atraumatic, sclera anicteric, moist mucous membranes NECK: Supple, trachea midline, no lymphadenopathy CARDIOVASCULAR: Regular rate and rhythm, normal S1 and S2. No murmurs, rubs, or gallops RESPIRATORY: Clear to auscultation bilaterally with equal air entry bilaterally. No wheezing, rhonchi, or rales. ABDOMEN: Soft, nontender, nondistended, bowel sounds present. No CVA tenderness. EXTREMITIES: No cyanosis or edema. Pulses 2/4 in bilateral upper and lower extremities. Capillary refill is less than 2 seconds in bilateral feet and hands. SKIN: [place], warm, dry MSK: No tenderness along the spinous processes of the spine. No SI joint tenderness. There is some tenderness along the muscle body of the quadriceps mu scles in the left thigh. No tenderness in the right thigh. NEUROLOGIC: Alert and oriented x3 to person, place and time. No focal deficits appreciated. Patellar and Achilles DTRs are 2+ bilaterally. Strength 5 out of 5 in bilateral lower extremities. Sensation intact in bilateral lower extremities. ASSESSMENT/PLAN: 56-year-old male with a past medical history of hypogonadotrophic hypogonadism, osteopenia, hypothyroidism, hyperlipidemia, paroxysmal atrial fibrillation, chronic back pain 2/2 spondylosis, hx of substance abuse, depression/anxiety/ADHD/insomnia, erectile dysfunction, and JOCELYN who presented with severe left-sided back pain radiating to his left hip, leg, and groin who was admitted for intractable pain and continues to have severe pain of the left thigh. #Intractable left thigh pain Imaging including MRI lumbar spine, hip XR, pelvic XR have been unrevealing Left lower extremity duplex ultrasound negative for DVT Patient is chronically on hydrocortisone and has a history of osteopenia, MRI femur ordered but patient could not tolerate. Will order for CT scan femur to rule out fracture CPK not elevated, muscle infarction unlikely CRP and ESR within normal limits, no evidence for inflammatory cause We will continue to try to control his pain with Rentz 10/650 every 4 hours as needed and Soma 350 every 4 hours as needed Continue daily lidocaine patch, daily meloxicam 15 mg, heating pad, compression, and additional supportive care if relieving pain Discussed with patient he will likely have some level of pain which may continue to improve as his Suboxone continues to clear out of his system patient has needed some additional doses of IV morphine for breakthrough pain. #Left testicular pain, resolved Suspect this is a referred pain due to etiology of above left thigh pain Renal ultrasound negative for obstruction Scrotal ultrasound negative for hydrocele, varicocele, spermatocele with normal vascular pattern No clear source of infection, status post levofloxacin for 1 day STD/STI testing including chlamydia, gonorrhea, syphilis, and HIV are negative PSA slightly elevated at 4.7, trending up from last measure of 3.8 in 2018. Outpatient follow-up for further management #Chronic back pain 2/2 spondylosis Continue home pregabalin Hold home Celebrex while patient is on other forms of NSAIDs for acute pain #History of substance abuse Hold home Suboxone while treating acute pain with opiate medications Patient would not be a good candidate for opiate medication prescription on discharge #Hypogonadotrophic hypogonadism Continue home hydrocortisone #Paroxysmal atrial fibrillation Currently in sinus rhythm, not requiring any rate or rhythm control CHADs-VASC: 0, does not require anticoagulation at this time #Hypothyroidism Continue home levothyroxine #Hyperlipidemia Continue home Lipitor #Depression/anxiety/ADHD Continue home venlafaxine and Ativan Hold home methylphenidate #Insomnia Hold home Lunesta as it is not on hospital formulary Patient can take ramelteon as needed for insomnia while inpatient #Erectile dysfunction Home AndroGel on hold DVT prophylaxis: Continue SC heparin Disposition: Pending clinical improvement and further work-up with MRI to evaluate for cause of pain VS,Radhae, I+O VS, Fishbone, I+O Laboratory Tests 09/05/21 06:17 Vital Signs Date Time Temp Pulse Resp B/P (MAP) Pulse Ox O2 Delivery O2 Flow Rate FiO2 09/05/21 08:21 16 09/05/21 06:00 98.2 84 145/72 (96) 94 Room Air I&O- Last 24 Hours up to 6 AM 09/05/21 06:00 Intake Total 1900 ml Output Total 0 ml Balance 1900 ml GME ATTESTATION GME ATTESTATION My faculty preceptor for this patient encounter was physically present during the encounter and was fully available. All aspects of the patient interview, examination, medical decision making process, and medical care plan development were reviewed and approved by the faculty preceptor. The faculty preceptor is aware and concurs with the plan as stated in the body of this note and will attest to such by his/her cosignature. ATTENDING NOTE I saw and evaluated the patient. I agree with the finding and the plan of care as documented in the resident's note. In addition, patient was not able to tolerate the MRI of the left leg. Instead we obtained CT of the left leg. ANA PARKER D.O. Sep 05, 2021 09:19 SHANNON FOX DO Sep 05, 2021 18:41
[2021-09-05] MEDS ORDERED: LORazepam 2 MG/ML VIAL IV ONE (12:40)
[2021-09-05] MEDS ORDERED: MORPHINE 2 MG/ML 1ML VIAL (J2270) IV ONE (12:40)
[2021-09-05 14:34] VITALS: BP 126/82
[2021-09-05] MEDS ORDERED: ISOVUE-370 76% 100ML VIAL As Ordered ONE (15:03)
--- NOTE | 2021-09-05 17:51 | REP ---
INDICATION: thigh pain, pt unable to tolerate MRI. COMPARISON: X-ray hip 09/04/2021, CT abdomen pelvis 09/03/2021, 07/06/2020, 09/17/2016. TECHNIQUE: Axial soft tissue and bone window images from just above the acetabular roof through tibial plateau. FINDINGS: Minor sclerosis iliac margin of SI joint, age-appropriate rim osteophyte of the acetabular roof with slight narrowing superiorly. There is a very deep fovea capitis in the femoral head and I would note that on CT scans of the pelvis recently and dating back to 2015 in that fovea with symmetric in deep. However there are now marginal osteophytes at the fovea superiorly and inferiorly. Rim osteophytes on the femoral head are noted as well as at the acetabulum the nose no evidence of AVN or fracture. The intertrochanteric femur was unremarkable femoral shaft shows no fracture or focal lesion. Likewise the femoral condyles are without fracture. There are some degenerative changes of the knee with spurs from the tibial spines, medial and lateral joint margins. Slight narrowing of the medial compared to lateral joint compartment. Proximal tibiofibular articulation intact. No abnormal soft tissue calcifications along the femur. Small amount of capsular calcification is noted at the hip superiorly. Pubic rami and symphysis pubis are intact. A few tiny acetabular roof cysts are noted peripherally. Soft tissues of the thigh show anterior/posterior compartment musculature grossly unremarkable. No abnormal fluid collections or masses. IMPRESSION: 1. Some steoarthritis with rim osteophytes acetabulum and femoral head ring osteophyte formation. However a deep fovea capitis is seen which is symmetric to the other side and there are marginal osteophytes at the fovea both superiorly and inferiorly. This deep fovea is symmetric and has been present in this fashion for many years but not with spurring. 2. Minor degenerative changes at the knee. Do not see other significant or acute finding <Electronically signed by Sebastien Pickard > 09/05/21 [id number]
[2021-09-05] MEDS: RAMELTEON 8 MG TAB (ROZEREM) PO PRN (20:15)
[2021-09-05] MEDS: **NOTE PATIENT COMMENT** MISC XX SCH (20:17)
[2021-09-05 21:36] VITALS: BP 125/82
[2021-09-05] MEDS ORDERED: tiZANidine 4 MG TAB PO ONE (22:05)
[2021-09-06] MEDS: carisoprodoL 350 MG TAB PO PRN ×2 (00:18→07:05)
[2021-09-06] MEDS: NORCO, ANEXSIA 5/325MG TABLET (HYDROcodone/ACETAMINOPHEN) PO PRN ×6 (00:19→20:35)
[2021-09-06] MEDS: LEVOTHYROXINE 125MCG TABLET (0.125MG) PO SCH (05:36)
[2021-09-06] MEDS: HEPARIN SOD (PORCINE) 5000UNITS/ML 1ML VIAL/SYRINGE SC SCH ×3 (05:36→20:34)
[2021-09-06 06:00] VITALS: BP 137/78
[2021-09-06 07:57] LABS: HEMATOCRIT 45.6 % (42.0-52.0); HEMOGLOBIN 15.6 g/dl (13.5-17.5); MEAN CORPUSCULAR HEMOGLOBIN 32.1 pg (27.0-33.0); MEAN CORPUSCULAR HGB CONC 34.2 g/dl (32.0-36.5); MEAN CORPUSCULAR VOLUME 93.8 fl (80.0-96.0); PLATELET COUNT, AUTOMATED 252 10^3/uL (150-450); RED BLOOD COUNT 4.86 10^6/uL (4.30-6.10); WHITE BLOOD COUNT 6.9 10^3/uL (4.0-10.0)
[2021-09-06 08:24] LABS: ALBUMIN 3.5 GM/DL (3.2-5.2); ALT/SGPT 31 U/L (12-78); BILIRUBIN,TOTAL 0.3 MG/DL (0.2-1.0); BLOOD UREA NITROGEN 13 MG/DL (7-18); CALCIUM LEVEL 8.5 MG/DL (8.5-10.1); CARBON DIOXIDE LEVEL 29 MEQ/L (21-32); CHLORIDE LEVEL 107 MEQ/L (98-107); CREATININE FOR GFR 0.89 MG/DL (0.70-1.30); GLOMERULAR FILTRATION RATE > 60.0 (>56); GLUCOSE, FASTING 96 MG/DL (70-100); POTASSIUM SERUM 4.3 MEQ/L (3.5-5.1); SODIUM LEVEL 139 MEQ/L (136-145); TOTAL PROTEIN 6.9 GM/DL (6.4-8.2)
[2021-09-06] MEDS: LORazepam 0.5 MG TAB PO SCH ×2 (08:35→14:37)
[2021-09-06] MEDS: HYDROCORTISONE 10 MG TAB PO SCH ×3 (08:35→20:35)
[2021-09-06] MEDS: MELOXICAM (MOBIC) 7.5 MG TAB PO SCH (08:36)
[2021-09-06] MEDS: ATORVASTATIN 20 MG TAB PO SCH (08:37)
[2021-09-06] MEDS: DOCUSATE SODIUM 100MG CAPSULE PO SCH ×2 (08:37→20:34)
[2021-09-06] MEDS: PREGABALIN 100 MG CAP (LYRICA) PO SCH ×2 (08:37→20:35)
[2021-09-06] MEDS: VENLAFAXINE **XR** 75MG CAPSULE PO SCH (08:37)
[2021-09-06] MEDS: LIDOCAINE 5% (LIDODERM) PATCH TOP SCH (08:38)
--- NOTE | 2021-09-06 12:07 | IPNPDOC ---
Subjective Date Seen The patient was seen on 09/06/21. Subjective Chief Complaint/HPI Mr. Irby is a 56 year old male with hypogonadotrophic hypogonadism and hypothyroidism who presents with intractable left thigh pain. Last night, he was not able to lie down for the MRI of the left leg, but was able to do the CT with contrast of left leg. Did not find any acute findings. Otherwise, he had a half tablet of the tizanidine and felt that this medication gave him some relief. I asked him if he wanted to continue with the carisoprodol or start the tizanidine. He said he wanted to try the tizanidine. Otherwise, his pain remains unchanged. I will discontinue atorvastatin in case this is statin medicated. I told the patient that when he is discharged, he will need to follow up with pain management to continue his pain medications. Objective Physical Examination General Exam: Positive: Alert, Cooperative Eye Exam: Positive: EOMI; Negative: Sclera icteric ENT Exam: Positive: Atraumatic Neck Exam: Positive: Supple Chest Exam: Positive: Clear to auscultation; Negative: Rales, Rhonchi, Wheezing Heart Exam: Positive: Rate Normal, Regular Rhythm Abdomen Exam: Positive: Normal bowel sounds, Soft; Negative: Tenderness Extremity Exam: Negative: Edema Neuro Exam: Positive: Normal Speech Psych Exam: Positive: Mental status NL, Mood NL Assessment /Plan Assessment Mr. Irby is a 56 year old male with hypogonadotrophic hypogonadism and hy pothyroidism who presents with intractable left thigh pain. MRI of the LS spine, XR of hip adn sacroiliac joint, and CT with contrast of the left thigh has not revealed any acute cause to the pain. US of the scrotum is also negative as well. No obvious cause for the intractable pain. Will discontinue atorvastatin in case if this is statin medicated myalgia. There is no signs of myositis (normal AST, ALT, and CPK) Otherwise, he is on Percocet, meloxicam, pregabalin, and Lidocaine patch for the pain. Switched carisoprodol for tizanidine. Plan/VTE VTE Prophylaxis Ordered?: Yes Plan 1. Intractable left thigh pain -MRI LS spine, Hip and sacroiliac XR, and CT with contrast left thigh have been unrevealing. -ESR and CRP within normal. No signs of inflammation -AST, ALT, and CPK are within normal. No signs of myositis -No obvious cause to the pain. Will work on pain control. Patient will need to follow up with pain management outpatient for continuation of pain regimen -Continue Percocet, Meloxicam, pregabalin, and Lidocaine pain. Patient would like to try Tizanidine over carisoprodol. -Discontinue atorvastatin incase this is statin induced myalgia 2. Left testicular pain -Resolved -Imaging negative -STD/STI testing negative 3. Chronic back pain Continue pregabalin and meloxicam 4. History of substance abuse -Holding Suboxone as treating acute pain with opiates 5. Hypogonadotrophic hypogonadism -Continue hydrocortisone 6. Paroxysmal atrial fibrillation -Currently in sinus rhythm. Has not required rate or rhythm control -CHADs-VASC score of 0, no anticoagulation indicated at this time. 7. Hypothyroidism -Continue levothyroxine 8. Hyperlipidemia -Statin possibly inducing myalgia. Discontinue statin 9. Depression/anxiety/ADHD -Continue venlafaxine and Ativan -Hold methylphenidate 10. Insomnia -Continue ramelteon 11. DVT ppx -Heparin Disposition: Pending improvement in pain VS, I&O, 24H, Fishbone Vital Signs/I&O Vital Signs Date Time Temp Pulse Resp B/P (MAP) Pulse Ox O2 Delivery O2 Flow Rate FiO2 09/06/21 09:10 16 09/06/21 06:00 98.1 66 137/78 (97) 97 Room Air I&O- Last 24 Hours up to 6 AM 09/06/21 06:00 Intake Total 1560 ml Output Total 0 ml Balance 1560 ml Laboratory Data 24H LABS Laboratory Tests 2 09/06/21 07:44: Nucleated Red Blood Cells % (auto) 0.0, Anion Gap 3L, Glomerular Filtration Rate > 60.0, Calcium Level 8.5, Total Bilirubin 0.3, Aspartate Amino Transf (AST/SGOT) 28, Alanine Aminotransferase (ALT/SGPT) 31, Alkaline Phosphatase 134H, Total Protein 6.9, Albumin 3.5, Albumin/Globulin Ratio 1.0 CBC/BMP Laboratory Tests 09/06/21 07:44 SHANNON FOX DO Sep 06, 2021 12:07
[2021-09-06] MEDS: tiZANidine 4 MG TAB PO PRN ×2 (12:09→18:07)
[2021-09-06 14:00] VITALS: BP 117/70
[2021-09-06] MEDS: RAMELTEON 8 MG TAB (ROZEREM) PO PRN (20:34)
[2021-09-06] MEDS: **NOTE PATIENT COMMENT** MISC XX SCH (20:36)
[2021-09-06 22:02] VITALS: BP 121/71
[2021-09-06 22:03] VITALS: BP 121/71
[2021-09-07] MEDS: tiZANidine 4 MG TAB PO PRN ×3 (00:30→21:46)
[2021-09-07] MEDS: NORCO, ANEXSIA 5/325MG TABLET (HYDROcodone/ACETAMINOPHEN) PO PRN ×2 (00:33→04:34)
[2021-09-07] MEDS: HEPARIN SOD (PORCINE) 5000UNITS/ML 1ML VIAL/SYRINGE SC SCH ×3 (05:35→21:46)
[2021-09-07] MEDS: LEVOTHYROXINE 125MCG TABLET (0.125MG) PO SCH (05:35)
[2021-09-07 06:00] VITALS: BP 124/73
[2021-09-07 06:26] LABS: HEMATOCRIT 44.8 % (42.0-52.0); HEMOGLOBIN 15.5 g/dl (13.5-17.5); MEAN CORPUSCULAR HEMOGLOBIN 32.6 pg (27.0-33.0); MEAN CORPUSCULAR HGB CONC 34.6 g/dl (32.0-36.5); MEAN CORPUSCULAR VOLUME 94.3 fl (80.0-96.0); PLATELET COUNT, AUTOMATED 259 10^3/uL (150-450); RED BLOOD COUNT 4.75 10^6/uL (4.30-6.10); WHITE BLOOD COUNT 6.6 10^3/uL (4.0-10.0)
[2021-09-07 06:57] LABS: ALBUMIN 3.3 GM/DL (3.2-5.2); ALT/SGPT 31 U/L (12-78); BILIRUBIN,TOTAL 0.4 MG/DL (0.2-1.0); BLOOD UREA NITROGEN 16 MG/DL (7-18); CALCIUM LEVEL 8.7 MG/DL (8.5-10.1); CARBON DIOXIDE LEVEL 30 MEQ/L (21-32); CHLORIDE LEVEL 108 MEQ/L (98-107); CREATININE FOR GFR 0.89 MG/DL (0.70-1.30); FREE T4 0.87 NG/DL (0.76-1.46); GLOMERULAR FILTRATION RATE > 60.0 (>56); GLUCOSE, FASTING 93 MG/DL (70-100); POTASSIUM SERUM 4.3 MEQ/L (3.5-5.1); SODIUM LEVEL 141 MEQ/L (136-145); TOTAL PROTEIN 6.7 GM/DL (6.4-8.2)
[2021-09-07] MEDS: PERCOCET 5MG/325MG TAB PO PRN ×4 (09:02→21:46)
[2021-09-07] MEDS: MELOXICAM (MOBIC) 7.5 MG TAB PO SCH (09:03)
[2021-09-07] MEDS: LORazepam 0.5 MG TAB PO SCH ×2 (09:03→15:41)
[2021-09-07] MEDS: VENLAFAXINE **XR** 75MG CAPSULE PO SCH (09:03)
[2021-09-07] MEDS: HYDROCORTISONE 10 MG TAB PO SCH ×3 (09:03→20:32)
[2021-09-07] MEDS: PREGABALIN 100 MG CAP (LYRICA) PO SCH ×2 (09:03→20:32)
[2021-09-07] MEDS: LIDOCAINE 5% (LIDODERM) PATCH TOP SCH (09:03)
[2021-09-07] MEDS: DOCUSATE SODIUM 100MG CAPSULE PO SCH ×2 (09:03→20:32)
--- NOTE | 2021-09-07 10:54 | IPNPDOC ---
Subjective Date Seen The patient was seen on 09/07/21. Subjective Chief Complaint/HPI Mr. Irby is a 56 year old male with hypogonadotrophic hypogonadism and hypothyroidism who presents with intractable left thigh pain. He tells me he had a bad night. He couldn't tell if the tizanidine worked better than carisoprodol. Only the Vicodin has helped with the pain. He feels that the pain is worse today. Will order a musculoskeletal US of the left leg and thigh today. Increase pain medication from Vicodin to Percocet Objective Physical Examination General Exam: Positive: Alert, Cooperative Eye Exam: Positive: EOMI; Negative: Sclera icteric ENT Exam: Positive: Atraumatic Neck Exam: Positive: Supple Chest Exam: Positive: Clear to auscultation; Negative: Rales, Rhonchi, Wheezing Heart Exam: Positive: Rate Normal, Regular Rhythm Abdomen Exam: Positive: Normal bowel sounds, Soft; Negative: Tenderness Extremity Exam: Negative: Edema Neuro Exam: Positive: Normal Speech Psych Exam: Positive: Mental status NL, Anxiety Assessment /Plan Assessment Mr. Irby is a 56 year old male with hypogonadotrophic hypogonadism and hypothyroidism who presents with intractable left thigh pain. MRI of the LS spine, XR of hip adn sacroiliac joint, and CT with contrast of the left thigh has not revealed any acute cause to the pain. US of the scrotum is also negative as well. No obvious cause for the intractable pain. Will discontinue atorvastatin in case if this is statin medicated myalgia. There is no signs of myositis (normal AST, ALT, and CPK) Otherwise, he is on meloxicam, pregabalin, and Lidocaine patch for the pain. Switched carisoprodol for tizanidine. Switched Vicodin to Percocet Plan/VTE VTE Prophylaxis Ordered?: Yes Plan 1. Intractable left thigh pain -MRI LS spine, Hip and sacroiliac XR, and CT with contrast left thigh have been unrevealing. -ESR and CRP within normal. No signs of inflammation -AST, ALT, and CPK are within normal. No signs of myositis -No obvious cause to the pain. Will work on pain control. Patient will need to follow up with pain management outpatient for continuation of pain regimen -Continue Percocet, Meloxicam, pregabalin, and Lidocaine pain. Patient would like to try Tizanidine over carisoprodol. -Discontinue atorvastatin incase this is statin induced myalgia -Ordered for musculoskeletal US of left leg (thigh and calf) 2. Left testicular pain -Resolved -Imaging negative -STD/STI testing negative 3. Chronic back pain Continue pregabalin and meloxicam 4. History of substance abuse -Holding Suboxone as treating acute pain with opiates 5. Hypogonadotrophic hypogonadism -Continue hydrocortisone 6. Paroxysmal atrial fibrillation -Currently in sinus rhythm. Has not required rate or rhythm control -CHADs-VASC score of 0, no anticoagulation indicated at this time. 7. Hypothyroidism -Continue levothyroxine 8. Hyperlipidemia -Statin possibly inducing myalgia. Discontinue statin 9. Depression/anxiety/ADHD -Continue venlafaxine and Ativan -Hold methylphenidate 10. Insomnia -Continue ramelteon 11. DVT ppx -Heparin Disposition: Pending improvement in pain VS, I&O, 24H, Fishbone Vital Signs/I&O Vital Signs Date Time Temp Pulse Resp B/P (MAP) Pulse Ox O2 Delivery O2 Flow Rate FiO2 09/07/21 09:32 18 09/07/21 06:00 98.2 54 124/73 (90) 95 Room Air I&O- Last 24 Hours up to 6 AM 09/07/21 06:00 Intake Total 1550 ml Balance 1550 ml Laboratory Data 24H LABS Laboratory Tests 2 09/07/21 06:06: Nucleated Red Blood Cells % (auto) 0.0, Anion Gap 3L, Glomerular Filtration Rate > 60.0, Calcium Level 8.7, Total Bilirubin 0.4, Aspartate Amino Transf (AST/SGOT) 30, Alanine Aminotransferase (ALT/SGPT) 31, Alkaline Phosphatase 117, Total Protein 6.7, Albumin 3.3, Albumin/Globulin Ratio 1.0, Thyroid Stimulating Hormone (TSH) 2.320, Free Thyroxine 0.87, Total Triiodothyronine 90.0 CBC/BMP Laboratory Tests 09/07/21 06:06 SHANNON FOX DO Sep 07, 2021 10:53
[2021-09-07 14:00] VITALS: BP 132/74
[2021-09-07] MEDS: diazePAM 2 MG TAB PO SCH ×2 (14:55→20:32)
--- NOTE | 2021-09-07 16:37 | REP ---
INDICATION: Left leg pain. Please look at left thigh and left calf. COMPARISON: None. TECHNIQUE: Real-time sonographic evaluation of left thigh and calf soft tissues performed. FINDINGS: No cystic or solid mass is seen. No fluid collection is seen. IMPRESSION: No sonographic abnormality is identified in the left thigh or calf soft tissues. <Electronically signed by Brennan Gleason > 09/07/21 0650
[2021-09-07 19:47] VITALS: BP 135/77
[2021-09-07] MEDS: **NOTE PATIENT COMMENT** MISC XX SCH (20:32)
[2021-09-07] MEDS: RAMELTEON 8 MG TAB (ROZEREM) PO PRN (20:32)
[2021-09-08] MEDS: PERCOCET 5MG/325MG TAB PO PRN ×4 (01:45→17:46)
--- NOTE | 2021-09-08 03:27 | IPNPDOC ---
Text Note Date of Service The patient was seen on 09/08/21. NOTE Notified patient with continued severe pain unrelieved by current methods. Patient seen at bedside sitting in chair actively crying. He is polite and not demanding. He verbalizes that his left groin area is with continued pain. No new symptoms pain 10 out of 10 he reports that he cannot sleep and he is actively moving in chair as he reports he is unable to relax. He does endorse some anxiety. He also endorses numbness to the left foot but relieved when he moves/repositions his leg. No notable edema or swelling. Pedal pulses intact. Patient has notably been rubbing his thigh and has removed hair because of the frequency. He denies back pain, he denies bubble with bladder or bowel. Given patient unrelieved and maxed on Percocet and adjunct pain management; Will offer morphine IV for breakthrough. Will defer to attending regarding orthopedic consult or further imaging related to left groin. VS,Fishbone, I+O VS, Fishbone, I+O Laboratory Tests 09/07/21 06:06 Vital Signs Date Time Temp Pulse Resp B/P (MAP) Pulse Ox O2 Delivery O2 Flow Rate FiO2 09/08/21 02:15 18 Room Air 09/07/21 19:47 96.3 53 135/77 (96) 93 I&O- Last 24 Hours up to 6 AM 09/08/21 06:00 Intake Total 1650 ml Output Total 0 ml Balance 1650 ml MIREYA PEREZ NP Sep 08, 2021 03:26
[2021-09-08] MEDS: MORPHINE 2 MG/ML 1ML VIAL (J2270) IV PRN ×2 (03:34→05:50)
[2021-09-08] MEDS: tiZANidine 4 MG TAB PO PRN (04:43)
[2021-09-08 05:49] VITALS: BP 139/77
[2021-09-08] MEDS: HEPARIN SOD (PORCINE) 5000UNITS/ML 1ML VIAL/SYRINGE SC SCH ×3 (05:49→21:14)
[2021-09-08] MEDS: LEVOTHYROXINE 125MCG TABLET (0.125MG) PO SCH (05:49)
[2021-09-08 06:46] LABS: HEMATOCRIT 42.9 % (42.0-52.0); HEMOGLOBIN 14.8 g/dl (13.5-17.5); MEAN CORPUSCULAR HEMOGLOBIN 32.3 pg (27.0-33.0); MEAN CORPUSCULAR HGB CONC 34.5 g/dl (32.0-36.5); MEAN CORPUSCULAR VOLUME 93.7 fl (80.0-96.0); PLATELET COUNT, AUTOMATED 245 10^3/uL (150-450); RED BLOOD COUNT 4.58 10^6/uL (4.30-6.10); WHITE BLOOD COUNT 6.8 10^3/uL (4.0-10.0)
[2021-09-08 06:59] LABS: ALBUMIN 3.2 GM/DL (3.2-5.2); ALT/SGPT 44 U/L (12-78); BILIRUBIN,TOTAL 0.5 MG/DL (0.2-1.0); BLOOD UREA NITROGEN 16 MG/DL (7-18); CALCIUM LEVEL 8.7 MG/DL (8.5-10.1); CARBON DIOXIDE LEVEL 29 MEQ/L (21-32); CHLORIDE LEVEL 107 MEQ/L (98-107); CREATININE FOR GFR 0.82 MG/DL (0.70-1.30); GLOMERULAR FILTRATION RATE > 60.0 (>56); GLUCOSE, FASTING 93 MG/DL (70-100); POTASSIUM SERUM 4.2 MEQ/L (3.5-5.1); SODIUM LEVEL 141 MEQ/L (136-145); TOTAL PROTEIN 6.9 GM/DL (6.4-8.2)
[2021-09-08] MEDS: diazePAM 2 MG TAB PO SCH ×2 (08:59→21:14)
[2021-09-08] MEDS: VENLAFAXINE **XR** 75MG CAPSULE PO SCH (08:59)
[2021-09-08] MEDS: PREGABALIN 100 MG CAP (LYRICA) PO SCH ×2 (08:59→21:14)
[2021-09-08] MEDS: LORazepam 0.5 MG TAB PO SCH ×2 (08:59→16:00)
[2021-09-08] MEDS: HYDROCORTISONE 10 MG TAB PO SCH (09:00)
[2021-09-08] MEDS: DOCUSATE SODIUM 100MG CAPSULE PO SCH ×2 (09:00→21:14)
[2021-09-08] MEDS ORDERED: methylPREDNISolone 40MG 1ML VIAL IV SCH (09:00)
[2021-09-08] MEDS: LIDOCAINE 5% (LIDODERM) PATCH TOP SCH (09:00)
[2021-09-08] MEDS: KETOROLAC 30 MG/ML 1ML VIAL IV SCH ×2 (09:52→17:07)
[2021-09-08] MEDS: methylPREDNISolone 40MG 1ML VIAL IV SCH ×2 (09:52→21:14)
[2021-09-08] MEDS ORDERED: MOM 30ML SUSPENSION UDC PO ONE (12:15)
--- NOTE | 2021-09-08 12:15 | IPNPDOC ---
Subjective Date Seen The patient was seen on 09/08/21. Subjective Chief Complaint/HPI Patient tells me that his pain started in the back of left thigh and left calf like a severe muscle spasm "charley horse "which went on for 6 to 8 hours and he could not tolerate it anymore so came to the emergency room. He had tried heat cold different positions pain meds at home nothing was helping . At present he is pain has localized and left thigh numbness and pain which is causing him problem with ambulation. He reports that heating pad is helping little bit. However the oxycodone is not helping. Objective Physical Examination General Exam: Positive: Alert, Cooperative Eye Exam: Positive: PERRLA, EOMI; Negative: Sclera icteric ENT Exam: Positive: Atraumatic Neck Exam: Positive: Supple Chest Exam: Positive: Clear to auscultation, Normal air movement; Negative: Rales, Rhonchi, Wheezing Heart Exam: Positive: Rate Normal, Regular Rhythm, Normal S1, Normal S2; Negative: Murmurs, Rubs Abdomen Exam: Positive: Normal bowel sounds, Soft; Negative: Tenderness, Hepatospenomegaly Extremity Exam: Positive: Normal pulses, Tenderness (In the left front thigh and left knee extending up to the groin); Negative: Clubbing, Cyanosis, Edema, Swelling, Other Neuro Exam: Positive: Normal Speech Psych Exam: Positive: Memory Intact, Oriented x 3 Assessment /Plan Assessment Mr. Irby is a 56 year old male with hypopituitarism, hypogonadotrophic hy pogonadism, hypothyroidism, paroxysmal atrial fibrillation, chronic low back pain after a work-related injury 15 years ago on disability, history of opiate abuse now on Suboxone, anxiety, depression, ADHD, presented to the hospital with intractable left thigh pain. MRI of the lumbosacral spine showed severe bilateral L5-S1 neural foraminal narrowing with facet hypertrophy, moderate left-sided L4-L5 neural foraminal narrowing with facet hypertrophy Lumbar radiculopathy The left thigh pain is most likely due to acute lumbar radiculopathy Patient has diffuse disc bulges as well as facet hypertrophy and foraminal stenosis moderate to severe more on the left as well as a congenitally narrow spinal canal. 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 Will be referred to pain management as an outpatient. Patient did say he received injections in the back before with some relief Chronic low back pain Has congenitally narrow spinal canal as well as facet hypertrophy seen bilateral foraminal narrowings Continue pregabalin and other pain meds as above History of substance abuse -Holding Suboxone as treating acute pain with opiates Hypopituitarism Patient is on hydrocortisone replacement at home we will hold for now as I have started the patient on methylprednisone Hypogonadotrophic hypogonadism We will continue home meds after discharge Paroxysmal atrial fibrillation Currently in sinus rhythm. Has not required rate or rhythm control Hypothyroidism Continue levothyroxine Hyperlipidemia We will resume statin on discharge Depression/anxiety/ADHD Continue venlafaxine and Ativan Hold methylphenidate Insomnia Continue ramelteon Plan/VTE VTE Prophylaxis Ordered?: Yes VS, I&O, 24H, Fishbone Vital Signs/I&O Vital Signs Date Time Temp Pulse Resp B/P (MAP) Pulse Ox O2 Delivery O2 Flow Rate FiO2 09/08/21 09:30 16 09/08/21 06:06 Room Air 09/08/21 05:49 97.6 50 139/77 (97) 96 I&O- Last 24 Hours up to 6 AM 09/08/21 06:00 Intake Total 2250 ml Output Total 0 ml Balance 2250 ml Laboratory Data 24H LABS Laboratory Tests 2 09/08/21 06:25: Nucleated Red Blood Cells % (auto) 0.0, Anion Gap 5L, Glomerular Filtration Rate > 60.0, Calcium Level 8.7, Total Bilirubin 0.5, Aspartate Amino Transf (AST/SGOT) 44H, Alanine Aminotransferase (ALT/SGPT) 44, Alkaline Phosphatase 104, Total Protein 6.9, Albumin 3.2, Albumin/Globulin Ratio 0.9 CBC/BMP Laboratory Tests 09/08/21 06:25 Debi Lowe MD Sep 08, 2021 12:15
[2021-09-08] MEDS: tiZANidine 4 MG TAB PO SCH ×2 (16:00→21:14)
[2021-09-08] MEDS: **NOTE PATIENT COMMENT** MISC XX SCH (21:00)
[2021-09-08] MEDS: RAMELTEON 8 MG TAB (ROZEREM) PO PRN (21:14)
[2021-09-08 22:00] VITALS: BP 108/60
[2021-09-09] MEDS: KETOROLAC 30 MG/ML 1ML VIAL IV SCH ×3 (02:33→17:30)
[2021-09-09 06:00] VITALS: BP 121/68
[2021-09-09] MEDS: LEVOTHYROXINE 125MCG TABLET (0.125MG) PO SCH (06:33)
[2021-09-09] MEDS: HEPARIN SOD (PORCINE) 5000UNITS/ML 1ML VIAL/SYRINGE SC SCH ×3 (06:33→21:29)
[2021-09-09 07:17] LABS: ALBUMIN 3.1 GM/DL (3.2-5.2); ALT/SGPT 85 U/L (12-78); BILIRUBIN,TOTAL 0.5 MG/DL (0.2-1.0); BLOOD UREA NITROGEN 24 MG/DL (7-18); CALCIUM LEVEL 8.6 MG/DL (8.5-10.1); CARBON DIOXIDE LEVEL 24 MEQ/L (21-32); CHLORIDE LEVEL 109 MEQ/L (98-107); CREATININE FOR GFR 0.99 MG/DL (0.70-1.30); GLOMERULAR FILTRATION RATE > 60.0 (>56); GLUCOSE, FASTING 120 MG/DL (70-100); POTASSIUM SERUM 4.5 MEQ/L (3.5-5.1); SODIUM LEVEL 142 MEQ/L (136-145); TOTAL PROTEIN 6.4 GM/DL (6.4-8.2)
[2021-09-09 07:20] LABS: HEMATOCRIT 41.9 % (42.0-52.0); HEMOGLOBIN 14.4 g/dl (13.5-17.5); MEAN CORPUSCULAR HEMOGLOBIN 32.1 pg (27.0-33.0); MEAN CORPUSCULAR HGB CONC 34.4 g/dl (32.0-36.5); MEAN CORPUSCULAR VOLUME 93.5 fl (80.0-96.0); PLATELET COUNT, AUTOMATED 260 10^3/uL (150-450); RED BLOOD COUNT 4.48 10^6/uL (4.30-6.10); WHITE BLOOD COUNT 8.7 10^3/uL (4.0-10.0)
[2021-09-09] MEDS: DOCUSATE SODIUM 100MG CAPSULE PO SCH ×2 (08:26→21:28)
[2021-09-09] MEDS: tiZANidine 4 MG TAB PO SCH ×3 (08:26→21:28)
[2021-09-09] MEDS: VENLAFAXINE **XR** 75MG CAPSULE PO SCH (08:26)
[2021-09-09] MEDS: MOM 30ML SUSPENSION UDC PO SCH (08:26)
[2021-09-09] MEDS: diazePAM 2 MG TAB PO SCH (08:26)
[2021-09-09] MEDS: LORazepam 0.5 MG TAB PO SCH ×2 (08:26→15:23)
[2021-09-09] MEDS: PREGABALIN 100 MG CAP (LYRICA) PO SCH ×2 (08:26→21:28)
[2021-09-09] MEDS: PERCOCET 5MG/325MG TAB PO PRN ×2 (08:30→14:30)
[2021-09-09] MEDS: LIDOCAINE 5% (LIDODERM) PATCH TOP SCH (08:47)
[2021-09-09] MEDS ORDERED: KETOROLAC TROMETHAMINE 10 MG TAB PO SCH (09:00)
[2021-09-09] MEDS: methylPREDNISolone 40MG 1ML VIAL IV SCH ×2 (10:34→21:28)
--- NOTE | 2021-09-09 10:40 | IPNPDOC ---
Subjective Date Seen The patient was seen on 09/09/21. Subjective Chief Complaint/HPI Patient reports that he slept better and he feels that the heat pad is now working. He describes the sensation of the left thigh is pain and numbness. He has been able to work with PT yesterday. Objective Physical Examination General Exam: Positive: Alert, Cooperative Eye Exam: Positive: PERRLA, EOMI; Negative: Sclera icteric ENT Exam: Positive: Atraumatic Neck Exam: Positive: Supple Chest Exam: Positive: Clear to auscultation, Normal air movement; Negative: Rales, Rhonchi, Wheezing Heart Exam: Positive: Rate Normal, Regular Rhythm, Normal S1, Normal S2; Negative: Murmurs, Rubs Abdomen Exam: Positive: Normal bowel sounds, Soft; Negative: Tenderness, Hepatospenomegaly Extremity Exam: Positive: Normal pulses, Tenderness (In the left front thigh and left knee extending up to the groin); Negative: Clubbing, Cyanosis, Edema, Swelling, Other Neuro Exam: Positive: Normal Speech, Reflexes 2+ (Bilateral knee jerks symmetrical 2+.), Other (Decreased power of dorsiflexion and plantarflexion of left first toe as well as the other toes) Psych Exam: Positive: Memory Intact, Oriented x 3 Assessment /Plan Assessment Mr. Irby is a 56 year old male with hypopituitarism, hypogonadotrophic hypogonadism, hypothyroidism, paroxysmal atrial fibrillation, chronic low back pain after a work-related injury 15 years ago on disability, history of opiate abuse now on Suboxone, anxiety, depression, ADHD, presented to the hospital with intractable left thigh pain. MRI of the lumbosacral spine showed severe bilateral L5-S1 neural foraminal narrowing with facet hypertrophy, moderate left-sided L4-L5 neural foraminal narrowing with facet hypertrophy Lumbar radiculopathy The left thigh pain is most likely due to acute lumbar radiculopathy Patient has diffuse disc bulges as well as facet hypertrophy and foraminal stenosis moderate to severe more on the left as well as a congenitally narrow spinal canal. 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 Continue methylprednisone, Toradol, tizanidine, diazepam and Lyrica CRP and ESR normal, vascular ultrasound negative, CT of the left femur and ultrasound of the thigh negative PT. Will be referred to pain management as an outpatient. Patient did say he received injections in the back before with some relief Chronic low back pain Has congenitally narrow spinal canal as well as facet hypertrophy seen bilateral foraminal narrowings Continue pregabalin and other pain meds as above History of substance abuse -Holding Suboxone as treating acute pain with opiates Hypopituitarism Patient is on hydrocortisone replacement at home we will hold for now as I have started the patient on methylprednisone Hypogonadotrophic hypogonadism We will continue home meds after discharge Paroxysmal atrial fibrillation Currently in sinus rhythm. Has not required rate or rhythm control Hypothyroidism Continue levothyroxine Hyperlipidemia We will resume statin on discharge Depression/anxiety/ADHD Continue venlafaxine and Ativan Hold methylphenidate Insomnia Continue ramelteon Plan/VTE VTE Prophylaxis Ordered?: Yes VS, I&O, 24H, Fishbone Vital Signs/I&O Vital Signs Date Time Temp Pulse Resp B/P (MAP) Pulse Ox O2 Delivery O2 Flow Rate FiO2 09/09/21 09:46 18 09/09/21 06:00 97.7 60 121/68 (85) 99 Room Air I&O- Last 24 Hours up to 6 AM 09/09/21 06:00 Intake Total 2760 ml Output Total 0 ml Balance 2760 ml Laboratory Data 24H LABS Laboratory Tests 2 09/09/21 06:31: Nucleated Red Blood Cells % (auto) 0.0, Anion Gap 9, Glomerular Filtration Rate > 60.0, Calcium Level 8.6, Total Bilirubin 0.5, Aspartate Amino Transf (AST/SGOT) 74H, Alanine Aminotransferase (ALT/SGPT) 85H, Alkaline Phosphatase 94, Total Protein 6.4, Albumin 3.1L, Albumin/Globulin Ratio 0.9 CBC/BMP Laboratory Tests 09/09/21 06:31 Debi Lowe MD Sep 09, 2021 10:40
[2021-09-09 14:00] VITALS: BP 107/69
--- NOTE | 2021-09-09 16:03 | REP ---
INDICATION: left thigh pain COMPARISON: None. TECHNIQUE: Real-time sonographic evaluation of the bilateral lower extremity arteries with Doppler FINDINGS: All numeric values represent peak systolic velocities in cm/SEC On the right: The ankle brachial index is 1.0. SPA CONCIERGE: 76.1 triphasic Profunda: 63.5 triphasic SFA proximal: 64.5 triphasic SFA Mid: 105.8 triphasic SFA distal: 76.0 triphasic Popliteal: 81.8 triphasic Tibioperoneal trunk: 80.2 triphasic TOOL CRIB CLERK proximal: 47.1 triphasic TOOL CRIB CLERK distal: 40.5 triphasic Peroneal proximal: 59.7 triphasic Peroneal distal: 81.8 triphasic NICOLE proximal: 37.0 triphasic NICOLE distal: 39.3 triphasic On the left: The ankle brachial index is 1.0. SPA CONCIERGE: 76.6 triphasic Profunda: 69.9 triphasic SFA proximal: 75.0 triphasic SFA Mid: 105.5 triphasic SFA distal: 99.0 triphasic Popliteal: 66.6 triphasic Tibioperoneal trunk: 71.3 triphasic TOOL CRIB CLERK proximal: 29.9 triphasic TOOL CRIB CLERK distal: 32.2 triphasic Peroneal proximal: 49.9 triphasic Peroneal distal: 75.9 triphasic NICOLE proximal: 53.2 triphasic NICOLE distal: 55.4 triphasic A mild to moderate amount of plaque was seen bilaterally without evidence of a stenosis IMPRESSION: As above <Electronically signed by Tato Perea > 09/09/21 [id number]
[2021-09-09] MEDS ORDERED: diazePAM 2 MG TAB PO PRN (18:20)
[2021-09-09] MEDS: **NOTE PATIENT COMMENT** MISC XX SCH (21:00)
[2021-09-09 22:00] VITALS: BP 110/54
[2021-09-10 06:00] VITALS: BP 117/57
[2021-09-10] MEDS: HEPARIN SOD (PORCINE) 5000UNITS/ML 1ML VIAL/SYRINGE SC SCH (06:04)
[2021-09-10] MEDS: LEVOTHYROXINE 125MCG TABLET (0.125MG) PO SCH (06:05)
[2021-09-10] MEDS: PERCOCET 5MG/325MG TAB PO PRN ×2 (06:05→11:32)
[2021-09-10 06:28] LABS: HEMOGLOBIN 14.5 g/dl (13.5-17.5); MEAN CORPUSCULAR HEMOGLOBIN 32.7 pg (27.0-33.0); MEAN CORPUSCULAR HGB CONC 34.5 g/dl (32.0-36.5); MEAN CORPUSCULAR VOLUME 94.8 fl (80.0-96.0); PLATELET COUNT, AUTOMATED 256 10^3/uL (150-450); RED BLOOD COUNT 4.43 10^6/uL (4.30-6.10); WHITE BLOOD COUNT 9.9 10^3/uL (4.0-10.0)
[2021-09-10 06:57] LABS: ALBUMIN 3.3 GM/DL (3.2-5.2); ALT/SGPT 111 U/L (12-78); BILIRUBIN,TOTAL 0.5 MG/DL (0.2-1.0); BLOOD UREA NITROGEN 30 MG/DL (7-18); CALCIUM LEVEL 8.8 MG/DL (8.5-10.1); CARBON DIOXIDE LEVEL 27 MEQ/L (21-32); CHLORIDE LEVEL 108 MEQ/L (98-107); CREATININE FOR GFR 0.97 MG/DL (0.70-1.30); GLOMERULAR FILTRATION RATE > 60.0 (>56); GLUCOSE, FASTING 103 MG/DL (70-100); POTASSIUM SERUM 4.7 MEQ/L (3.5-5.1); SODIUM LEVEL 140 MEQ/L (136-145); TOTAL PROTEIN 6.6 GM/DL (6.4-8.2)
[2021-09-10] MEDS ORDERED: MEDR8TAB PO (08:13)
[2021-09-10] MEDS ORDERED: KETO10TAB PO (08:13)
[2021-09-10] MEDS ORDERED: TIZA4TAB4 PO (08:13)
[2021-09-10] MEDS: DOCUSATE SODIUM 100MG CAPSULE PO SCH (08:31)
[2021-09-10] MEDS: PREGABALIN 100 MG CAP (LYRICA) PO SCH (08:31)
[2021-09-10] MEDS: LORazepam 0.5 MG TAB PO SCH (08:31)
[2021-09-10] MEDS: VENLAFAXINE **XR** 75MG CAPSULE PO SCH (08:31)
[2021-09-10] MEDS: LIDOCAINE 5% (LIDODERM) PATCH TOP SCH (08:33)
[2021-09-10] MEDS: MOM 30ML SUSPENSION UDC PO SCH (08:33)
[2021-09-10] MEDS: methylPREDNISolone 40MG 1ML VIAL IV SCH (08:34)
[2021-09-10] MEDS ORDERED: KETOROLAC TROMETHAMINE 10 MG TAB PO SCH (09:00)
[2021-09-10] MEDS ORDERED: tiZANidine 4 MG TAB PO SCH (09:00)
[2021-09-10] MEDS ORDERED: OXYC-517 PO (10:42)
--- NOTE | 2021-09-10 10:55 | DS.PDOC ---
Discharge Summary General Date of Admission Sep 03, 2021 at 12:34 Date of Discharge 09/10/21 Discharge Summary PROCEDURES PERFORMED DURING STAY: [None]. DISCHARGE DIAGNOSES: Acute Lumber radiculopathy on the left Spinal canal stenosis Bilateral neural foraminal stenosis Left > right most severe at L3-L5. Thin Lipoma of filum terminale SECONDARY DIAGNOSIS: Hypopituitarism, hypogonadotrophic hypogonadism, hypothyroidism, paroxysmal atrial fibrillation, chronic low back pain after a work-related injury 15 years ago on disability, history of opiate abuse now on Suboxone, anxiety, depression, ADHD, COMPLICATIONS/CHIEF COMPLAINT: Groin Pain, Intractable Low Back Pain. HOSPITAL COURSE: Mr. Irby is a 56 year old male with hypopituitarism, hypogonadotrophic hypogonadism, hypothyroidism, paroxysmal atrial fibrillation, chronic low back pain after a work-related injury 15 years ago on disability, h istory of opiate abuse now on Suboxone, anxiety, depression, ADHD, presented to the hospital with intractable left thigh pain. MRI of the lumbosacral spine showed severe bilateral L5-S1 neural foraminal narrowing with facet hypertrophy, moderate left-sided L4-L5 neural foraminal narrowing with facet hypertrophy Acute Lumbar radiculopathy The left thigh pain is most likely due to acute lumbar radiculopathy Patient has diffuse disc bulges as well as facet hypertrophy and foraminal stenosis moderate to severe more on the left as well as a congenitally narrow spinal canal. 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 Continue methylprednisone, Toradol, tizanidine, Lyrica and oxycodone CRP and ESR normal, vascular ultrasound negative, Arterial US of the left leg negative. CT of the left femur and ultrasound of the Leftthigh negative PT. Will be referred to pain management as an outpatient. Patient did say he received injections in the back before with some relief Chronic low back pain Has congenitally narrow spinal canal as well as facet hypertrophy seen bilateral foraminal narrowings Continue pregabalin and other pain meds as above History of substance abuse -Holding Suboxone as treating acute pain with opiates Hypopituitarism Patient is on hydrocortisone replacement at home we will hold for now as I have started the patient on methylprednisone Hypogonadotrophic hypogonadism We will continue home meds after discharge Paroxysmal atrial fibrillation Currently in sinus rhythm. Has not required rate or rhythm control Hypothyroidism Continue levothyroxine Hyperlipidemia We will resume statin on discharge Depression/anxiety/ADHD Continue venlafaxine and Ativan Hold methylphenidate Insomnia Continue ramelteon DISCHARGE MEDICATIONS: Please see below. ALLERGIES: Please see below. PHYSICAL EXAMINATION ON DISCHARGE: VITAL SIGNS: Please see below. General Exam: Positive: Alert, Cooperative Eye Exam: Positive: PERRLA, EOMI; Negative: Sclera icteric ENT Exam: Positive: Atraumatic Neck Exam: Positive: Supple Chest Exam: Positive: Clear to auscultation, Normal air movement; Negative: Rales, Rhonchi, Wheezing Heart Exam: Positive: Rate Normal, Regular Rhythm, Normal S1, Normal S2; Negative: Murmurs, Rubs Abdomen Exam: Positive: Normal bowel sounds, Soft; Negative: Tenderness, Hepatospenomegaly Extremity Exam: Positive: Normal pulses, Tenderness (In the left front thigh and left knee extending up to the groin); Negative: Clubbing, Cyanosis, Edema, Swelling, Other Neuro Exam: Positive: Normal Speech, Reflexes 2+ (Bilateral knee jerks s ymmetrical 2+.), Other (Decreased power of dorsiflexion and plantarflexion of left first toe as well as the other toes) Psych Exam: Positive: Memory Intact, Oriented x 3 LABORATORY DATA: Please see below. IMAGING: MRI LS spine: FINDINGS: Examination was terminated prematurely secondary to patient discomfort. Axial imaging was not completed. Vertebrae: There is no fracture or listhesis. Spinal cord: The conus medullaris terminates at T12/L1. The patient has a congenitally narrowed spinal canal. There is a thin lipoma of the filum terminalis. L1-L2: There is shallow disc bulging. There is mild facet hypertrophy. There is mild bilateral neural foraminal narrowing. L2-L3: There is diffuse disc bulging. There is moderate facet hypertrophy. There is mild left neural foraminal narrowing. There is mild canal stenosis. L3-L4: There is shallow disc bulging. There is moderate facet hypertrophy. There is mild right and moderate left neural foraminal narrowing. L4-L5: There is diffuse disc bulging. There is moderate facet hypertrophy. There is mild right and moderate left neural foraminal narrowing. L5-S1: There is diffuse disc bulging. There is moderate facet hypertrophy. There is severe bilateral neural foraminal narrowing. Soft tissues: Unremarkable. ACTIVITY: [As tolerated]. DIET: Regular DISCHARGE PLAN: Home DISCHARGE INSTRUCTIONS: PMD in 1 week Pain managemetn in 1 to [address] Abilio holly for evaluation of spinal stenosis and radiculopathy DISCHARGE CONDITION: [Stable]. TIME SPENT ON DISCHARGE: 35 minutes. Vital Signs/I&Os Vital Signs Date Time Temp Pulse Resp B/P (MAP) Pulse Ox O2 Delivery O2 Flow Rate FiO2 09/10/21 06:35 18 Room Air 09/10/21 06:00 98.3 72 117/57 (77) 97 I&O- Last 24 Hours up to 6 AM 09/10/21 06:00 Intake Total 840 ml Output Total 0 ml Balance 840 ml Laboratory Data Labs 24H Laboratory Tests 2 09/10/21 06:15: Nucleated Red Blood Cells % (auto) 0.0, Anion Gap 5L, Glomerular Filtration Rate > 60.0, Calcium Level 8.8, Total Bilirubin 0.5, Aspartate Amino Transf (AST/SGOT) 76H, Alanine Aminotransferase (ALT/SGPT) 111H, Alkaline Phosphatase 104, Total Protein 6.6, Albumin 3.3, Albumin/Globulin Ratio 1.0 CBC/BMP Laboratory Tests 09/10/21 06:15 Discharge Medications Scheduled Atorvastatin Calcium (Atorvastatin Calcium) 20 Mg Tab, 20 MG PO DAILY, (Reported) Buprenorphine HCl/Naloxone HCl (Suboxone 12 mg-3 mg Sl Film) 1 Each Film, 2 STRIP SL DAILY, (Reported) PT ONLY BEEN TAKING 1 FILM Calcium Carbonate (Calcium) 600 Mg Tablet, 1 TAB PO DAILY, (Reported) Cholecalciferol (Vitamin D3) (Vitamin D3) 50 Mcg Capsule, 50 MCG PO DAILY, (Reported) Hydrocortisone (Hydrocortisone) 10 Mg Tablet, 20 MG PO DAILY, (Reported) 10MG IN AM, 1/2 IN AFTERNOON, 1/2 AT NIGHT Levothyroxine Sodium (Levoxyl) 125 Mcg Tab, 125 MCG PO DAILY, (Reported) Lorazepam (Ativan) 0.5 Mg Tablet, 0.5 MG PO BID, (Reported) Methylphenidate Hcl (Methylphenidate HCl Cd) 10 Mg Cpbp.30.70, 10 MG PO BID, (Reported) Methylprednisolone (Medrol) 8 Mg Tablet, 8 MG PO ASDIRECTED 4 tabs x 2days then 3tabs x 2days then 2tabsx 2 days then 1tab x2days then stop Pregabalin (Pregabalin) 200 Mg Capsule, 200 MG PO BID, (Reported) Testosterone (Androgel) 40.5 Mg/2.5 Gm Gel, 1 PKT TOP DAILY, (Reported) APPLY TO STOMACH Venlafaxine HCl (Venlafaxine HCl ER) 75 Mg Capcr, 75 MG PO DAILY, (Reported) Scheduled PRN Eszopiclone (Lunesta) 2 Mg Tab, 2 MG PO QHS PRN for SLEEP, (Reported) Ketorolac Tromethamine (Ketorolac Tromethamine) 10 Mg Tablet, 10 MG PO TIDP PRN for PAIN LEVEL 5-10 Oxycodone HCl (Oxycodone HCl) 5 Mg Tablet, 1-2 TAB PO Q6HP PRN for PAIN LEVEL 5- 10 Tizanidine HCl (Tizanidine HCl) 4 Mg Tablet, 2 MG PO TIDP PRN for MUSCLE SPASMS Allergies Coded Allergies: Penicillins (Verified Allergy, Unknown, 11/30/19) swelling cyclobenzaprine (Verified Adverse Reaction, Unknown, 11/30/19) Debi Lowe MD Sep 10, 2021 10:55
== END 2021-09-10 11:40 | disposition home or self-care (01) | DRG 552 ==
LOC: M ED 03:39 → M ED INP 12:34 → M MS5PR 18:40
PROVIDERS: ADMIT Internal Medicine; ATTEND Internal Medicine Nephrology
DX: M51.16 Intervertebral disc disorders with radiculopathy, lumbar region (principal); E23.0 Hypopituitarism; M99.73 Connective tissue and disc stenosis of intervertebral foramina of lumbar region; N50.812 Left testicular pain; F32.A Depression, unspecified; M47.814 Spondylosis without myelopathy or radiculopathy, thoracic region; G47.33 Obstructive sleep apnea (adult) (pediatric); E78.5 Hyperlipidemia, unspecified; M47.812 Spondylosis without myelopathy or radiculopathy, cervical region; E03.9 Hypothyroidism, unspecified; F41.9 Anxiety disorder, unspecified; I48.0 Paroxysmal atrial fibrillation; Z79.899 Other long term (current) drug therapy; Z87.442 Personal history of urinary calculi; Z88.0 Allergy status to penicillin; Z88.8 Allergy status to other drugs, medicaments and biological substances

== ENCOUNTER → 2021-11-04 | Outpatient (REF) | payer OTHER ==
[~2021-11-04] MED LIST changes: +D32000CA PO; +MEDR8TAB PO; +METH10CA2 PO; +OXYC-517 PO; +PREG200C PO; +SUBO12MI SL; +TIZA4TAB4 PO
== END ==
LOC: M SFHCPLAZ 13:07
PROVIDERS: ATTEND Physician Assistant
DX: R50.9 Fever, unspecified (principal)

== ENCOUNTER → 2021-12-29 | Outpatient (CLI) | payer MEDICARE, OTHER ==
[~2021-12-29] MED LIST changes: +TIZA10TA PO; -TIZA4TAB4 PO
[2021-12-29 12:45] LABS: BASO # 0.1 10^3/uL (0.0-0.2); BASO % 1.2 % (0.0-1.0); EOS # 0.3 10^3/uL (0.0-0.5); EOS % 4.4 % (0.0-3.0); HEMATOCRIT 47.4 % (42.0-52.0); HEMOGLOBIN 16.6 g/dl (13.5-17.5); LYMPH # 3.3 10^3/uL (1.5-5.0); LYMPH % 43.3 % (24.0-44.0); MEAN CORPUSCULAR HEMOGLOBIN 32.7 pg (27.0-33.0); MEAN CORPUSCULAR VOLUME 93.3 fl (80.0-96.0); MONO # 0.9 10^3/uL (0.0-0.8); MONO % 12.5 % (2.0-8.0); NEUTROPHILS # 2.9 10^3/uL (1.5-8.5); NEUTROPHILS % 38.3 % (36.0-66.0); PLATELET COUNT, AUTOMATED 250 10^3/uL (150-450); RED BLOOD COUNT 5.08 10^6/uL (4.30-6.10); WHITE BLOOD COUNT 7.5 10^3/uL (4.0-10.0)
[2021-12-29 13:21] LABS: ERYTHROCYTE SEDIMENTATION RATE 3 mm/hr (0-20)
[2021-12-29 13:42] LABS: C REACTIVE PROTEIN QUANTITATIV < 0.30 MG/DL (0.00-0.30); CHOLESTEROL LEVEL 163 MG/DL (<200); CHOLESTEROL RISK RATIO 1.987 (<5); FERRITIN 66 NG/ML (26-388); HDL CHOLESTEROL 82 MG/DL (>40); LDL CHOLESTEROL 65 MG/DL (<100); NON-HDL-C 81 MG/DL; RHEUMATOID FACTOR QUANT < 10.0 IU/ML (<15.0); TOTAL PROTEIN,RANDOM URINE 19.6 MG/DL (0.0-12.0); TRIGLYCERIDES LEVEL 80 MG/DL (<150)
[2021-12-29 14:09] LABS: TOTAL 25(OH) VITAMIN D 44.8 NG/ML (30.0-100.0)
[2021-12-29 14:10] LABS: PTH INTACT 39.9 PG/ML (18.5-88.0)
[2021-12-30 23:07] LABS: CYCLIC CITRULLINATED PEPTIDE 19 units (0-19); G6PD2 5.18 x10E6/uL (4.14-5.80); TESTOSTERONE FREE (DIRECT) 10.2 pg/mL (7.2-24.0)
== END ==
LOC: M LAB 12:02
PROVIDERS: ATTEND Family Medicine
DX: M19.90 Unspecified osteoarthritis, unspecified site (principal); E78.5 Hyperlipidemia, unspecified; E29.1 Testicular hypofunction; E55.9 Vitamin D deficiency, unspecified; E78.2 Mixed hyperlipidemia
CPT/HCPCS: 36415; 80061; 80307; 82306; 82550; 82570; 82728; 82955; 83970; 84156; 84402; 84403; 85025; 85652; 86140; 86200; 86431; G0103

== ENCOUNTER 2022-04-08 11:57 | Inpatient (IN) | payer MEDICARE, OTHER ==
[~2022-04-08] VITALS: Ht 165.1 cm; Wt 74.3 kg
[2022-04-08 14:37] LABS: BASO # 0.1 10^3/uL (0.0-0.2); BASO % 1.1 % (0.0-1.0); EOS # 0.1 10^3/uL (0.0-0.5); EOS % 1.4 % (0.0-3.0); HEMATOCRIT 27.6 % (42.0-52.0); HEMOGLOBIN 9.5 g/dl (13.5-17.5); LYMPH # 2.3 10^3/uL (1.5-5.0); MEAN CORPUSCULAR HEMOGLOBIN 32.3 pg (27.0-33.0); MEAN CORPUSCULAR HGB CONC 34.4 g/dl (32.0-36.5); MEAN CORPUSCULAR VOLUME 93.9 fl (80.0-96.0); MONO # 0.7 10^3/uL (0.0-0.8); MONO % 9.3 % (2.0-8.0); NEUTROPHILS % 55.9 % (36.0-66.0); PLATELET COUNT, AUTOMATED 267 10^3/uL (150-450); RED BLOOD COUNT 2.94 10^6/uL (4.30-6.10); WHITE BLOOD COUNT 7.2 10^3/uL (4.0-10.0)
[2022-04-08 14:48] LABS: INR 0.91; PROTHROMBIN TIME 12.7 SECONDS (12.7-14.5)
[2022-04-08] MEDS ORDERED: PANTOPRAZOLE 40MG VIAL IV ONE (15:05)
[2022-04-08 15:21] LABS: ALT/SGPT 35 U/L (12-78); BILIRUBIN,DIRECT < 0.1 MG/DL (0.0-0.2); BILIRUBIN,TOTAL 0.3 MG/DL (0.2-1.0); BLOOD UREA NITROGEN 10 MG/DL (7-18); CALCIUM LEVEL 8.8 MG/DL (8.5-10.1); CARBON DIOXIDE LEVEL 26 MEQ/L (21-32); CHLORIDE LEVEL 110 MEQ/L (98-107); CREATININE FOR GFR 0.93 MG/DL (0.70-1.30); GLOMERULAR FILTRATION RATE > 60.0 (>56); GLUCOSE, FASTING 88 MG/DL (70-100); LIPASE 68 U/L (73-393); POTASSIUM SERUM 4.3 MEQ/L (3.5-5.1); SODIUM LEVEL 140 MEQ/L (136-145); TOTAL PROTEIN 5.8 GM/DL (6.4-8.2)
[2022-04-08] MEDS ORDERED: ISOVUE-370 76% 100ML VIAL As Ordered ONE (15:31)
[2022-04-08] MEDS ORDERED: MOM 30ML SUSPENSION UDC PO PRN (16:30)
[2022-04-08 17:14] LABS: RSV AMPLIFICATION NEGATIVE (NEGATIVE)
[2022-04-08] MEDS: SUCRALFATE 1 GM TAB PO SCH (18:05)
[2022-04-08] MEDS ORDERED: CELE1CAP9 PO (18:23)
[2022-04-08] MEDS ORDERED: HOME MED LIST COMPLETE! XX SCH (18:25)
[2022-04-08] MEDS ORDERED: CALCIUM CARBONATE 500 MG CHEW U/D PO PRN (19:55)
[2022-04-08] MEDS ORDERED: LUNESTA 2 MG PO PRN (19:55)
[2022-04-08 20:15] VITALS: BP 125/74
[2022-04-08] MEDS ORDERED: RITA10TA PO (20:15)
[2022-04-08] MEDS: PANTOPRAZOLE 40MG VIAL IV SCH (20:41)
[2022-04-08] MEDS: PREGABALIN 100 MG CAP (LYRICA) PO SCH (20:41)
[2022-04-08] MEDS: HYDROCORTISONE 5MG TABLET PO SCH (20:41)
[2022-04-08] MEDS: METHYLPHENIDATE 5 MG TAB PO SCH ×2 (20:42→21:00)
[2022-04-08] MEDS: BUPRENORPHINE/NALOXONE 8-2MG SUBLINGUAL TABLET(SUBOXONE) SL SCH ×2 (20:42→21:00)
[2022-04-08] MEDS: ACETAMINOPHEN TAB 650MG DOSE (2X325MG) PO PRN (20:43)
[2022-04-08] MEDS: LORazepam 0.5 MG TAB PO SCH (20:44)
[2022-04-08 22:00] VITALS: BP 125/74
[2022-04-08] MEDS ORDERED: zolPIDEM TARTRATE 5 MG TAB PO ONE (22:55)
[2022-04-09 06:00] VITALS: BP 111/64
[2022-04-09] MEDS ORDERED: LEVOTHYROXINE 125MCG TABLET (0.125MG) PO SCH (06:00)
[2022-04-09 06:26] LABS: HEMATOCRIT 28.8 % (42.0-52.0); HEMOGLOBIN 9.8 g/dl (13.5-17.5); MEAN CORPUSCULAR HEMOGLOBIN 32.2 pg (27.0-33.0); MEAN CORPUSCULAR VOLUME 94.7 fl (80.0-96.0); PLATELET COUNT, AUTOMATED 260 10^3/uL (150-450); RED BLOOD COUNT 3.04 10^6/uL (4.30-6.10); WHITE BLOOD COUNT 7.1 10^3/uL (4.0-10.0)
[2022-04-09 07:02] LABS: BLOOD UREA NITROGEN 8 MG/DL (7-18); CALCIUM LEVEL 7.8 MG/DL (8.5-10.1); CARBON DIOXIDE LEVEL 29 MEQ/L (21-32); CHLORIDE LEVEL 107 MEQ/L (98-107); CREATININE FOR GFR 0.97 MG/DL (0.70-1.30); GLOMERULAR FILTRATION RATE > 60.0 (>56); GLUCOSE, FASTING 76 MG/DL (70-100); MAGNESIUM LEVEL 2.2 MG/DL (1.8-2.4); POTASSIUM SERUM 4.2 MEQ/L (3.5-5.1); SODIUM LEVEL 139 MEQ/L (136-145)
[2022-04-09 07:05] LABS: PERCENT SATURATION 4.7 % (19.7-50.0)
[2022-04-09] MEDS ORDERED: IRON SUCROSE 100MG 5ML VIAL (J1756 PER 1MG) IV ONE (07:40)
[2022-04-09] MEDS ORDERED: FERR325T3 PO (07:58)
[2022-04-09] MEDS ORDERED: PANT40TA29 PO (07:58)
[2022-04-09] MEDS ORDERED: SUCR1TA PO (07:58)
[2022-04-09] MEDS ORDERED: VENLAFAXINE **XR** 75MG CAPSULE PO SCH (09:00)
[2022-04-09] MEDS ORDERED: FLUBLOK(EGG FREE)(QUAD)INFLUENZA VACC 0.5ML SYRINGE 18YRS & OLDER IM.IMMUN ONE (09:00)
[2022-04-09] MEDS ORDERED: VITAMIN D 1,000 INTERNATIONAL UNITS TABLET PO SCH (09:00)
[2022-04-09] MEDS ORDERED: ATORVASTATIN 20 MG TAB PO SCH (09:00)
[2022-04-09] MEDS: METHYLPHENIDATE 5 MG TAB PO SCH (09:15)
[2022-04-09] MEDS: HYDROCORTISONE 10 MG TAB PO SCH ×2 (09:15→11:45)
[2022-04-09] MEDS: BUPRENORPHINE/NALOXONE 8-2MG SUBLINGUAL TABLET(SUBOXONE) SL SCH (09:15)
[2022-04-09] MEDS: PREGABALIN 100 MG CAP (LYRICA) PO SCH (09:15)
[2022-04-09] MEDS: SUCRALFATE 1 GM TAB PO SCH ×2 (09:15→11:45)
[2022-04-09] MEDS: PANTOPRAZOLE 40MG VIAL IV SCH (09:15)
[2022-04-09] MEDS: LORazepam 0.5 MG TAB PO SCH (09:15)
[2022-04-09 10:00] VITALS: BP 127/73
[2022-04-09] MEDS ORDERED: IRON SUCROSE 100 MG in NS 100 ML OVER 1 HR IV ONE (10:00)
[2022-04-09] MEDS: HYDROCORTISONE 5MG TABLET PO SCH (11:45)
[2022-04-09] MEDS: ACETAMINOPHEN TAB 650MG DOSE (2X325MG) PO PRN (13:56)
== END 2022-04-09 14:28 | disposition home or self-care (01) | DRG 378 ==
LOC: M ED 11:57 → M ED INP 16:27 → ENRESERV 18:26 → M MSPAV 20:06
PROVIDERS: ADMIT Internal Medicine; ATTEND Internal Medicine
DX: K92.2 Gastrointestinal hemorrhage, unspecified (principal); D62 Acute posthemorrhagic anemia; E23.0 Hypopituitarism; F41.9 Anxiety disorder, unspecified; F32.A Depression, unspecified; E03.9 Hypothyroidism, unspecified; E78.5 Hyperlipidemia, unspecified; I48.0 Paroxysmal atrial fibrillation; M85.80 Other specified disorders of bone density and structure, unspecified site; D50.9 Iron deficiency anemia, unspecified; R10.13 Epigastric pain; N52.9 Male erectile dysfunction, unspecified; M47.812 Spondylosis without myelopathy or radiculopathy, cervical region; M47.814 Spondylosis without myelopathy or radiculopathy, thoracic region; M47.816 Spondylosis without myelopathy or radiculopathy, lumbar region; G47.33 Obstructive sleep apnea (adult) (pediatric); Z79.899 Other long term (current) drug therapy; Z88.0 Allergy status to penicillin; Z88.8 Allergy status to other drugs, medicaments and biological substances

== ENCOUNTER → 2022-04-12 | Outpatient (CLI) | payer MEDICARE ==
[~2022-04-12] MED LIST changes: +FERR325T3 PO; +PANT40TA29 PO; +RITA10TA PO; +SUCR1TA PO
[2022-04-12 14:42] LABS: BASO # 0.1 10^3/uL (0.0-0.2); BASO % 0.9 % (0.0-1.0); EOS # 0.1 10^3/uL (0.0-0.5); EOS % 0.8 % (0.0-3.0); HEMATOCRIT 28.4 % (42.0-52.0); HEMOGLOBIN 9.8 g/dl (13.5-17.5); LYMPH % 26.1 % (24.0-44.0); MEAN CORPUSCULAR HEMOGLOBIN 32.9 pg (27.0-33.0); MEAN CORPUSCULAR HGB CONC 34.5 g/dl (32.0-36.5); MEAN CORPUSCULAR VOLUME 95.3 fl (80.0-96.0); MONO # 0.7 10^3/uL (0.0-0.8); MONO % 9.2 % (2.0-8.0); NEUTROPHILS # 4.9 10^3/uL (1.5-8.5); NEUTROPHILS % 62.5 % (36.0-66.0); PLATELET COUNT, AUTOMATED 360 10^3/uL (150-450); RED BLOOD COUNT 2.98 10^6/uL (4.30-6.10); WHITE BLOOD COUNT 7.8 10^3/uL (4.0-10.0)
[2022-04-12 15:03] LABS: ERYTHROCYTE SEDIMENTATION RATE 15 mm/hr (0-20)
[2022-04-12 15:14] LABS: ALBUMIN 3.4 GM/DL (3.2-5.2); ALT/SGPT 37 U/L (12-78); BILIRUBIN,TOTAL 0.2 MG/DL (0.2-1.0); BLOOD UREA NITROGEN 10 MG/DL (7-18); CALCIUM LEVEL 8.2 MG/DL (8.5-10.1); CARBON DIOXIDE LEVEL 29 MEQ/L (21-32); CHLORIDE LEVEL 108 MEQ/L (98-107); FREE T4 0.89 NG/DL (0.76-1.46); GLOMERULAR FILTRATION RATE > 60.0 (>56); GLUCOSE, FASTING 94 MG/DL (70-100); POTASSIUM SERUM 4.4 MEQ/L (3.5-5.1); SODIUM LEVEL 141 MEQ/L (136-145); TOTAL PROTEIN 6.5 GM/DL (6.4-8.2)
== END ==
LOC: M LAB 13:26
PROVIDERS: ATTEND Family Medicine
DX: Z12.5 Encounter for screening for malignant neoplasm of prostate (principal); M19.90 Unspecified osteoarthritis, unspecified site; E23.0 Hypopituitarism; E29.1 Testicular hypofunction; F11.99 Opioid use, unspecified with unspecified opioid-induced disorder
CPT/HCPCS: 36415; 80053; 80307; 84154; 84402; 84403; 84439; 85025; 85652; 86140; G0480

== ENCOUNTER 2022-04-16 12:00 | Outpatient (CLI) | payer MEDICARE, OTHER ==
[~2022-04-16] VITALS: Ht 165.1 cm; Wt 74.3 kg
[~2022-04-16 12:00] MED LIST changes: +ALBUTEROL SULFATE 2.5 MG/0.5 ML INH NEB SOLN INH PRN; +EPINEPHrine INJ 1 MG/ML 1ML AMP IM PRN; +diphenhydrAMINE 50MG/ML VIAL (J1200) IV PRN; +methylPREDNISolone 125MG 2ML VIAL IV PRN
[2022-04-16 12:15] VITALS: BP 135/75
[2022-04-16] MEDS ORDERED: FERRIC CARBOXYMALTOSE INJ 750 MG in NS 250 ML (>50kg) IV ONE ×6 (12:35→12:40)
[2022-04-16] MEDS ORDERED: NS 1,000 ML IV SCH (12:40)
[2022-04-16 14:30] VITALS: BP_SYST 115; BP_SYST 136; BP_DIAS 65; BP_DIAS 81
== END 2022-04-16 14:30 | disposition home or self-care (01) ==
LOC: M INFU 12:00
PROVIDERS: ATTEND Family Medicine
DX: D50.9 Iron deficiency anemia, unspecified (principal); Z88.0 Allergy status to penicillin; Z88.8 Allergy status to other drugs, medicaments and biological substances
CPT/HCPCS: 96365; 96366; J1439

== ENCOUNTER → 2022-09-28 | Outpatient (CLI) | payer MEDICARE ==
[~2022-09-28] MED LIST changes: -ALBUTEROL SULFATE 2.5 MG/0.5 ML INH NEB SOLN INH PRN; -EPINEPHrine INJ 1 MG/ML 1ML AMP IM PRN; -diphenhydrAMINE 50MG/ML VIAL (J1200) IV PRN; -methylPREDNISolone 125MG 2ML VIAL IV PRN
[2022-09-28 17:51] LABS: BASO # 0.1 10^3/uL (0.0-0.2); EOS # 0.3 10^3/uL (0.0-0.5); EOS % 3.4 % (0.0-3.0); HEMATOCRIT 45.3 % (42.0-52.0); HEMOGLOBIN 15.5 g/dl (13.5-17.5); LYMPH # 2.3 10^3/uL (1.5-5.0); LYMPH % 28.6 % (24.0-44.0); MEAN CORPUSCULAR HEMOGLOBIN 31.5 pg (27.0-33.0); MEAN CORPUSCULAR HGB CONC 34.2 g/dl (32.0-36.5); MEAN CORPUSCULAR VOLUME 92.1 fl (80.0-96.0); MONO # 0.9 10^3/uL (0.0-0.8); MONO % 10.7 % (2.0-8.0); NEUTROPHILS # 4.5 10^3/uL (1.5-8.5); PLATELET COUNT, AUTOMATED 287 10^3/uL (150-450); RED BLOOD COUNT 4.92 10^6/uL (4.30-6.10)
[2022-09-28 18:20] LABS: CHLORIDE LEVEL 104 MMOL/L (98-107); POTASSIUM SERUM 4.5 MMOL/L (3.5-5.1); SODIUM LEVEL 141 MMOL/L (136-145)
[2022-09-28 18:22] LABS: ALBUMIN 3.8 G/DL (3.2-5.2); CARBON DIOXIDE LEVEL 27 MMOL/L (20-31); FERRITIN 48.6 NG/ML (10.5-307.3)
[2022-09-28 18:26] LABS: BLOOD UREA NITROGEN 14 MG/DL (9-23)
[2022-09-28 18:27] LABS: CALCIUM LEVEL 9.2 MG/DL (8.5-10.1); GLUCOSE, FASTING 83 MG/DL (60-100)
[2022-09-28 18:28] LABS: BILIRUBIN,TOTAL 0.6 MG/DL (0.3-1.2); TOTAL PROTEIN 6.7 G/DL (5.7-8.2)
[2022-09-28 18:29] LABS: ALT/SGPT 44 U/L (7.0-40); CREATININE FOR GFR 0.86 MG/DL (0.70-1.30); GLOMERULAR FILTRATION RATE > 60.0 (>56)
== END ==
LOC: M LAB 15:57
PROVIDERS: ATTEND Family Medicine
DX: D50.0 Iron deficiency anemia secondary to blood loss (chronic) (principal)

== ENCOUNTER → 2022-11-24 | Outpatient (CLI) | payer MEDICARE ==
[2022-11-24 17:34] LABS: HEMATOCRIT 48.4 % (42.0-52.0); HEMOGLOBIN 16.7 g/dl (13.5-17.5); MEAN CORPUSCULAR HEMOGLOBIN 32.2 pg (27.0-33.0); MEAN CORPUSCULAR HGB CONC 34.5 g/dl (32.0-36.5); MEAN CORPUSCULAR VOLUME 93.3 fl (80.0-96.0); PLATELET COUNT, AUTOMATED 272 10^3/uL (150-450); RED BLOOD COUNT 5.19 10^6/uL (4.30-6.10); WHITE BLOOD COUNT 7.9 10^3/uL (4.0-10.0)
[2022-11-24 18:01] LABS: ALBUMIN 3.6 G/DL (3.2-5.2); ALKALINE PHOSPHATASE 126 U/L (46-116); ALT/SGPT 43 U/L (7.0-40); AST/SGOT 61 U/L (<34); BILIRUBIN,TOTAL 0.4 MG/DL (0.3-1.2); BLOOD UREA NITROGEN 14 MG/DL (9-23); CALCIUM LEVEL 8.9 MG/DL (8.5-10.1); CARBON DIOXIDE LEVEL 30 MMOL/L (20-31); CHLORIDE LEVEL 103 MMOL/L (98-107); CREATININE FOR GFR 0.95 MG/DL (0.70-1.30); GLOMERULAR FILTRATION RATE > 60.0 (>56); GLUCOSE, FASTING 100 MG/DL (60-100); IRON (FE) 154 UG/DL (65-175); PERCENT SATURATION 45.2 % (19.7-50.0); POTASSIUM SERUM 4.7 MMOL/L (3.5-5.1); SODIUM LEVEL 138 MMOL/L (136-145); TOTAL IRON BINDING CAPACITY 341 UG/DL (250-425); TOTAL PROTEIN 6.9 G/DL (5.7-8.2)
[2022-11-24 18:02] LABS: FERRITIN 58.2 NG/ML (10.5-307.3); THYROID STIMULATING HORMONE 0.164 uIU/ML (0.55-4.78)
[2022-11-24 19:56] LABS: HEMOGLOBIN A1c 5.3 % (4.0-6.0)
== END ==
LOC: M PLALAB 16:46
PROVIDERS: ATTEND Nurse Practitioner Adult Health
DX: H53.8 Other visual disturbances (principal); D50.9 Iron deficiency anemia, unspecified; E07.9 Disorder of thyroid, unspecified

== ENCOUNTER → 2022-12-05 | Outpatient (CLI) | payer MEDICARE | LOC: M LABSMTC 10:30 | PROVIDERS: ATTEND Anesthesiology | DX: Z01.812 Encounter for preprocedural laboratory examination (principal) ==

== ENCOUNTER 2022-12-06 10:32 | Day surgery (SDC) | payer MEDICARE ==
[~2022-12-06] VITALS: Ht 165.1 cm; Wt 71.1 kg
[~2022-12-06 10:32] MED LIST changes: +NS 1,000 ML IV ONE
[2022-12-06 12:54] VITALS: BP 114/73
== END 2022-12-06 13:05 | disposition home or self-care (01) ==
LOC: M OPP 10:32
PROVIDERS: ATTEND Internal Medicine Gastroenterology
DX: K57.30 Diverticulosis of large intestine without perforation or abscess without bleeding (principal); K64.8 Other hemorrhoids; D50.9 Iron deficiency anemia, unspecified; Z79.02 Long term (current) use of antithrombotics/antiplatelets; Z79.52 Long term (current) use of systemic steroids; Z79.890 Hormone replacement therapy; Z79.891 Long term (current) use of opiate analgesic; Z79.899 Other long term (current) drug therapy; Z88.0 Allergy status to penicillin; Z88.8 Allergy status to other drugs, medicaments and biological substances; Z99.89 Dependence on other enabling machines and devices; G47.33 Obstructive sleep apnea (adult) (pediatric); E03.9 Hypothyroidism, unspecified; I10 Essential (primary) hypertension; F41.9 Anxiety disorder, unspecified; N40.0 Benign prostatic hyperplasia without lower urinary tract symptoms

== ENCOUNTER → 2023-09-09 | Outpatient (CLI) | payer MEDICARE ==
[~2023-09-09] MED LIST changes: +CELE0.09 PO; -CELE1CAP9 PO; -LUNE2TAB23 PO; +LUNE2TAB28 PO; -NS 1,000 ML IV ONE; -PREG200C PO; +PREG200C2 PO
[2023-09-09 15:13] LABS: BASO # 0.1 10^3/uL (0.0-0.2); BASO % 1.4 % (0.0-1.0); EOS # 0.1 10^3/uL (0.0-0.5); EOS % 2.2 % (0.0-3.0); HEMATOCRIT 46.4 % (42.0-52.0); HEMOGLOBIN 15.8 g/dl (13.5-17.5); LYMPH # 1.5 10^3/uL (1.5-5.0); LYMPH % 23.6 % (24.0-44.0); MEAN CORPUSCULAR HEMOGLOBIN 32.1 pg (27.0-33.0); MEAN CORPUSCULAR HGB CONC 34.1 g/dl (32.0-36.5); MEAN CORPUSCULAR VOLUME 94.3 fl (80.0-96.0); MONO # 0.6 10^3/uL (0.0-0.8); NEUTROPHILS % 63.5 % (36.0-66.0); PLATELET COUNT, AUTOMATED 321 10^3/uL (150-450); RED BLOOD COUNT 4.92 10^6/uL (4.30-6.10); WHITE BLOOD COUNT 6.4 10^3/uL (4.0-10.0)
[2023-09-09 15:22] LABS: CHOLESTEROL LEVEL 103 MG/DL (<200); CHOLESTEROL RISK RATIO 1.92 (<5); HDL CHOLESTEROL 53.4 MG/DL (>40); LDL CHOLESTEROL 40.2 MG/DL (<100); NON-HDL-C 49.6 MG/DL; TRIGLYCERIDES LEVEL 47 MG/DL (<150)
[2023-09-09 15:23] LABS: PTH INTACT 22.6 PG/ML (18.5-88.0)
[2023-09-09 15:24] LABS: THYROID STIMULATING HORMONE 0.049 uIU/ML (0.55-4.78); TOTAL 25(OH) VITAMIN D 61.9 NG/ML (20.0-100.0); VITAMIN B12 LEVEL 671 PG/ML (211-911)
[2023-09-09 15:56] LABS: HEPATITIS C VIRUS ABY INDEX 0.15 INDEX (<0.8)
== END ==
LOC: M LAB 13:55
PROVIDERS: ATTEND Family Medicine
DX: D50.9 Iron deficiency anemia, unspecified (principal); E07.9 Disorder of thyroid, unspecified; E78.00 Pure hypercholesterolemia, unspecified; Z12.5 Encounter for screening for malignant neoplasm of prostate
CPT/HCPCS: 36415; 80061; 82105; 82172; 82306; 82607; 83010; 83883; 83970; 84402; 84403; 84443; 85025; 86364; 86803; 87340; G0103

== ENCOUNTER → 2023-09-15 | Outpatient (CLI) | payer MEDICAID, MEDICARE | LOC: M WHC 09:54 | PROVIDERS: ATTEND Family Medicine | DX: M81.0 Age-related osteoporosis without current pathological fracture (principal) ==

== ENCOUNTER → 2023-11-22 | Outpatient (REF) | payer MEDICARE | LOC: M SFHCPLAZ 10:51 | PROVIDERS: ATTEND Family Medicine | DX: D50.9 Iron deficiency anemia, unspecified (principal); E03.9 Hypothyroidism, unspecified; E23.0 Hypopituitarism; E55.9 Vitamin D deficiency, unspecified; N40.1 Benign prostatic hyperplasia with lower urinary tract symptoms ==

== ENCOUNTER → 2023-11-22 | Outpatient (CLI) | payer MEDICARE ==
[2023-11-22 13:58] LABS: ALBUMIN 3.9 G/DL (3.2-5.2); ALKALINE PHOSPHATASE 126 U/L (46-116); ALT/SGPT 51 U/L (7.0-40); AST/SGOT 41 U/L (<34); BILIRUBIN,TOTAL 0.5 MG/DL (0.3-1.2); BLOOD UREA NITROGEN 19 MG/DL (9-23); CALCIUM LEVEL 9.5 MG/DL (8.5-10.1); CARBON DIOXIDE LEVEL 31 MMOL/L (20-31); CHLORIDE LEVEL 100 MMOL/L (98-107); CREATININE FOR GFR 0.98 MG/DL (0.70-1.30); FERRITIN 67.1 NG/ML (10.5-307.3); FREE T4 0.93 NG/DL (0.89-1.76); GLOMERULAR FILTRATION RATE > 60.0 (>56); GLUCOSE, FASTING 92 MG/DL (60-100); POTASSIUM SERUM 4.5 MMOL/L (3.5-5.1); PTH INTACT 34.5 PG/ML (18.5-88.0); SODIUM LEVEL 135 MMOL/L (136-145); THYROID STIMULATING HORMONE 1.409 uIU/ML (0.55-4.78); TOTAL PROTEIN 7.7 G/DL (5.7-8.2)
[2023-11-22 14:01] LABS: TOTAL 25(OH) VITAMIN D 61.5 NG/ML (20.0-100.0)
[2023-11-22 14:02] LABS: BASO # 0.1 10^3/uL (0.0-0.2); BASO % 0.9 % (0.0-1.0); EOS % 0.3 % (0.0-3.0); LYMPH # 1.5 10^3/uL (1.5-5.0); LYMPH % 15.9 % (24.0-44.0); MEAN CORPUSCULAR HEMOGLOBIN 32.9 pg (27.0-33.0); MEAN CORPUSCULAR HGB CONC 34.5 g/dl (32.0-36.5); MEAN CORPUSCULAR VOLUME 95.5 fl (80.0-96.0); MONO # 0.8 10^3/uL (0.0-0.8); NEUTROPHILS # 7.1 10^3/uL (1.5-8.5); NEUTROPHILS % 74.5 % (36.0-66.0); PLATELET COUNT, AUTOMATED 404 10^3/uL (150-450); WHITE BLOOD COUNT 9.5 10^3/uL (4.0-10.0)
[2023-11-22 14:04] LABS: HEMATOCRIT 53.1 % (42.0-52.0); HEMOGLOBIN 18.3 g/dl (13.5-17.5); RED BLOOD COUNT 5.56 10^6/uL (4.30-6.10)
[2023-11-23 19:08] LABS: PSA FREE 0.67 ng/mL; PSA TOTAL 5.6 ng/mL (0.0-4.0); TESTOSTERONE FREE (DIRECT) 29.7 pg/mL (7.2-24.0); TESTOSTERONE TOTAL FOR T&D > 1500.0 ng/dL (264-916)
== END ==
LOC: M PLAIMG 11:18
PROVIDERS: ATTEND Family Medicine
DX: M25.812 Other specified joint disorders, left shoulder (principal); D50.9 Iron deficiency anemia, unspecified; E23.0 Hypopituitarism; E55.9 Vitamin D deficiency, unspecified; N40.1 Benign prostatic hyperplasia with lower urinary tract symptoms; Z12.5 Encounter for screening for malignant neoplasm of prostate; R97.20 Elevated prostate specific antigen [PSA]

== ENCOUNTER → 2023-12-01 | Outpatient (CLI) | payer MEDICARE | LOC: M RAD 14:50 | PROVIDERS: ATTEND Family Medicine | DX: L72.9 Follicular cyst of the skin and subcutaneous tissue, unspecified (principal); N50.82 Scrotal pain ==

== ENCOUNTER → 2023-12-26 | Outpatient (CLI) | payer MEDICARE ==
[2023-12-26 15:57] LABS: BASO # 0.1 10^3/uL (0.0-0.2); BASO % 0.9 % (0.0-1.0); EOS # 0.3 10^3/uL (0.0-0.5); EOS % 2.9 % (0.0-3.0); HEMATOCRIT 45.5 % (42.0-52.0); LYMPH # 2.9 10^3/uL (1.5-5.0); LYMPH % 30.2 % (24.0-44.0); MEAN CORPUSCULAR HEMOGLOBIN 33.2 pg (27.0-33.0); MEAN CORPUSCULAR HGB CONC 35.2 g/dl (32.0-36.5); MEAN CORPUSCULAR VOLUME 94.4 fl (80.0-96.0); MONO % 10.3 % (2.0-8.0); NEUTROPHILS # 5.3 10^3/uL (1.5-8.5); NEUTROPHILS % 55.3 % (36.0-66.0); PLATELET COUNT, AUTOMATED 336 10^3/uL (150-450); RED BLOOD COUNT 4.82 10^6/uL (4.30-6.10); WHITE BLOOD COUNT 9.5 10^3/uL (4.0-10.0)
== END ==
LOC: M LAB 15:09
PROVIDERS: ATTEND Family Medicine
DX: E29.1 Testicular hypofunction (principal)

== ENCOUNTER → 2024-01-23 | Outpatient (CLI) | payer MEDICARE ==
[2024-01-23 15:44] LABS: BASO # 0.1 10^3/uL (0.0-0.2); BASO % 1.2 % (0.0-1.0); EOS # 0.3 10^3/uL (0.0-0.5); HEMATOCRIT 42.9 % (42.0-52.0); LYMPH # 2.5 10^3/uL (1.5-5.0); LYMPH % 37.6 % (24.0-44.0); MEAN CORPUSCULAR HEMOGLOBIN 32.8 pg (27.0-33.0); MEAN CORPUSCULAR VOLUME 93.7 fl (80.0-96.0); MONO # 0.8 10^3/uL (0.0-0.8); MONO % 11.7 % (2.0-8.0); NEUTROPHILS % 45.3 % (36.0-66.0); PLATELET COUNT, AUTOMATED 306 10^3/uL (150-450); RED BLOOD COUNT 4.58 10^6/uL (4.30-6.10); WHITE BLOOD COUNT 6.5 10^3/uL (4.0-10.0)
[2024-01-23 16:08] LABS: ALBUMIN 3.5 G/DL (3.2-5.2); ALKALINE PHOSPHATASE 124 U/L (46-116); ALT/SGPT 32 U/L (7.0-40); AST/SGOT 41 U/L (<34); BILIRUBIN,TOTAL 0.3 MG/DL (0.3-1.2); BLOOD UREA NITROGEN 21 MG/DL (9-23); CALCIUM LEVEL 8.9 MG/DL (8.5-10.1); CARBON DIOXIDE LEVEL 30 MMOL/L (20-31); CHLORIDE LEVEL 105 MMOL/L (98-107); GLOMERULAR FILTRATION RATE > 60.0 (>56); GLUCOSE, FASTING 87 MG/DL (60-100); POTASSIUM SERUM 4.1 MMOL/L (3.5-5.1); PSA SCREENING 5.12 NG/ML (< 4.00); PTH INTACT 25.5 PG/ML (18.5-88.0); SODIUM LEVEL 138 MMOL/L (136-145); TOTAL PROTEIN 6.4 G/DL (5.7-8.2)
[2024-01-23 16:10] LABS: FERRITIN 92.1 NG/ML (10.5-307.3)
== END ==
LOC: M PLALAB 14:12
PROVIDERS: ATTEND Family Medicine
DX: F11.99 Opioid use, unspecified with unspecified opioid-induced disorder (principal); D50.9 Iron deficiency anemia, unspecified; Z12.5 Encounter for screening for malignant neoplasm of prostate
CPT/HCPCS: 36415; 80053; 82306; 82728; 83520; 83970; 84402; 84403; 85025; G0103

== ENCOUNTER → 2024-02-21 | Outpatient (CLI) | payer MEDICARE ==
[2024-02-21 14:24] LABS: TOTAL T3 101.5 NG/DL (60.0-181.0)
[2024-02-21 14:25] LABS: C REACTIVE PROTEIN QUANTITATIV 0.5 MG/DL (<1.0)
[2024-02-21 14:26] LABS: ESTRADIOL 47.4 PG/ML (<39.8)
== END ==
LOC: M PLALAB 11:32
PROVIDERS: ATTEND Family Medicine
DX: E03.9 Hypothyroidism, unspecified (principal)

== ENCOUNTER → 2024-03-13 | Outpatient (CLI) | payer OTHER | LOC: M PLALAB 12:35 | PROVIDERS: ATTEND Family Medicine | DX: F32.9 Major depressive disorder, single episode, unspecified (principal) ==

== ENCOUNTER → 2024-03-16 | Outpatient (REF) | payer MEDICARE | LOC: M SFHCPLAZ 11:27 | PROVIDERS: ATTEND Family Medicine | DX: E29.1 Testicular hypofunction (principal); E03.9 Hypothyroidism, unspecified ==

== ENCOUNTER → 2024-03-29 | Outpatient (REF) | payer MEDICARE, OTHER | LOC: M SFHCPLAZ 10:11 | PROVIDERS: ATTEND Physician Assistant Medical | DX: J01.90 Acute sinusitis, unspecified (principal) ==

== ENCOUNTER → 2024-04-05 | Outpatient (CLI) | payer OTHER ==
[~2024-04-05] MED LIST changes: +PROHANCE 279.3MG/ML 15ML VIAL As Ordered ONE
== END ==
LOC: M RAD 07:45
PROVIDERS: ATTEND Family Medicine
DX: R97.20 Elevated prostate specific antigen [PSA] (principal)
CPT/HCPCS: 72197; A9576

== ENCOUNTER → 2024-05-08 | Outpatient (REF) | payer MEDICARE, OTHER, MEDICAID ==
[~2024-05-08] MED LIST changes: -PROHANCE 279.3MG/ML 15ML VIAL As Ordered ONE
[2024-05-08 13:08] LABS: APPEARANCE, URINE CLEAR (CLEAR); BACTERIA, URINE AUTO NEGATIVE (NEGATIVE); BILIRUBIN, URINE AUTO NEGATIVE (NEGATIVE); BLOOD, URINE BLOOD NEGATIVE (NEGATIVE); COLOR, URINE YELLOW (YELLOW); GLUCOSE, URINE (UA) AUTO NEGATIVE (NEGATIVE); KETONE, URINE AUTO NEGATIVE (NEGATIVE); LEUKOCYTE ESTERASE, URINE AUTO NEGATIVE (NEGATIVE); MUCUS, URINE SMALL (NEGATIVE); NITRITE, URINE AUTO NEGATIVE (NEGATIVE); PROTEIN, URINE AUTO NEGATIVE (NEGATIVE); RBC, URINE AUTO 1 /HPF (0-3); SPECIFIC GRAVITY URINE AUTO 1.024 (1.002-1.035); SQUAMOUS EPITHELIAL CELL UR AU 0 /HPF (0-6); UROBILINOGEN, URINE AUTO 0.2 mg/dL (0.0-2.0); WBC, URINE AUTO 0 /HPF (0-3)
== END ==
LOC: M SMT 12:31
PROVIDERS: ATTEND Urology
DX: R97.20 Elevated prostate specific antigen [PSA] (principal); N40.1 Benign prostatic hyperplasia with lower urinary tract symptoms

== ENCOUNTER → 2024-06-05 | Outpatient (REF) | payer MEDICARE, OTHER, MEDICAID | LOC: M SMT PRO 12:34 | PROVIDERS: ATTEND Urology | DX: C61 Malignant neoplasm of prostate (principal); R97.20 Elevated prostate specific antigen [PSA]; Z79.82 Long term (current) use of aspirin; Z79.899 Other long term (current) drug therapy; Z88.0 Allergy status to penicillin ==

== ENCOUNTER → 2024-07-12 | Outpatient (REF) | payer OTHER, MEDICAID ==
[2024-07-12 13:12] LABS: APPEARANCE, URINE HAZY (CLEAR); BACTERIA, URINE AUTO NEGATIVE (NEGATIVE); BILIRUBIN, URINE AUTO NEGATIVE (NEGATIVE); BLOOD, URINE BLOOD NEGATIVE (NEGATIVE); CALCIUM OXALATE CRYSTALS SMALL; COLOR, URINE AMBER (YELLOW); GLUCOSE, URINE (UA) AUTO NEGATIVE (NEGATIVE); KETONE, URINE AUTO TRACE mg/dL (NEGATIVE); LEUKOCYTE ESTERASE, URINE AUTO NEGATIVE (NEGATIVE); MUCUS, URINE SMALL (NEGATIVE); NITRITE, URINE AUTO NEGATIVE (NEGATIVE); PROTEIN, URINE AUTO 1+ mg/dL (NEGATIVE); RBC, URINE AUTO 1 /HPF (0-3); SPECIFIC GRAVITY URINE AUTO 1.033 (1.002-1.035); SQUAMOUS EPITHELIAL CELL UR AU 0 /HPF (0-6); UROBILINOGEN, URINE AUTO 0.2 mg/dL (0.0-2.0); WBC, URINE AUTO 1 /HPF (0-3)
== END ==
LOC: M SMT 12:35
PROVIDERS: ATTEND Urology
DX: N39.0 Urinary tract infection, site not specified (principal)

== ENCOUNTER → 2024-08-24 | Outpatient (CLI) | payer OTHER, MEDICAID ==
[2024-08-24 14:53] LABS: APPEARANCE, URINE HAZY (CLEAR); BACTERIA, URINE AUTO NEGATIVE (NEGATIVE); BILIRUBIN, URINE AUTO NEGATIVE (NEGATIVE); BLOOD, URINE BLOOD NEGATIVE (NEGATIVE); CALCIUM OXALATE CRYSTALS SMALL; COLOR, URINE YELLOW (YELLOW); GLUCOSE, URINE (UA) AUTO NEGATIVE (NEGATIVE); KETONE, URINE AUTO NEGATIVE (NEGATIVE); LEUKOCYTE ESTERASE, URINE AUTO NEGATIVE (NEGATIVE); MUCUS, URINE SMALL (NEGATIVE); NITRITE, URINE AUTO NEGATIVE (NEGATIVE); PROTEIN, URINE AUTO 1+ mg/dL (NEGATIVE); RBC, URINE AUTO 2 /HPF (0-3); SPECIFIC GRAVITY URINE AUTO 1.035 (1.002-1.035); SQUAMOUS EPITHELIAL CELL UR AU 0 /HPF (0-6); UROBILINOGEN, URINE AUTO 0.2 mg/dL (0.0-2.0); WBC, URINE AUTO 5 /HPF (0-3)
[2024-08-24 14:57] LABS: BASO # 0.1 10^3/uL (0.0-0.2); BASO % 0.9 % (0.0-1.0); EOS # 0.2 10^3/uL (0.0-0.5); EOS % 1.9 % (0.0-3.0); HEMATOCRIT 36.7 % (42.0-52.0); HEMOGLOBIN 12.8 g/dl (13.5-17.5); LYMPH # 2.4 10^3/uL (1.5-5.0); LYMPH % 26.9 % (24.0-44.0); MEAN CORPUSCULAR HEMOGLOBIN 31.6 pg (27.0-33.0); MEAN CORPUSCULAR HGB CONC 34.9 g/dl (32.0-36.5); MEAN CORPUSCULAR VOLUME 90.6 fl (80.0-96.0); MONO # 0.9 10^3/uL (0.0-0.8); MONO % 10.5 % (2.0-8.0); NEUTROPHILS # 5.2 10^3/uL (1.5-8.5); NEUTROPHILS % 59.5 % (36.0-66.0); PLATELET COUNT, AUTOMATED 381 10^3/uL (150-450); RED BLOOD COUNT 4.05 10^6/uL (4.30-6.10); WHITE BLOOD COUNT 8.7 10^3/uL (4.0-10.0)
[2024-08-24 15:13] LABS: ALBUMIN 3.1 G/DL (3.2-5.2); ALKALINE PHOSPHATASE 150 U/L (40-129); ALT/SGPT 30 U/L (7.0-40); AST/SGOT 44 U/L (<34); BILIRUBIN,TOTAL 0.4 MG/DL (0.3-1.2); BLOOD UREA NITROGEN 16 MG/DL (9-23); CALCIUM LEVEL 9.1 MG/DL (8.3-10.6); CARBON DIOXIDE LEVEL 27 MMOL/L (20-31); CHLORIDE LEVEL 109 MMOL/L (98-107); CHOLESTEROL LEVEL 117 MG/DL (<200); CHOLESTEROL RISK RATIO 2.13 (<5); CREATININE FOR GFR 0.78 MG/DL (0.70-1.30); GLOMERULAR FILTRATION RATE > 60.0 (>49); GLUCOSE, FASTING 97 MG/DL (74-106); HDL CHOLESTEROL 54.7 MG/DL (>40); INR 0.96; LDL CHOLESTEROL 48.9 MG/DL (<100); NON-HDL-C 62.3 MG/DL; PARTIAL THROMBOPLASTIN TIME 34.1 SECONDS (24.8-34.2); POTASSIUM SERUM 4.3 MMOL/L (3.5-5.1); PROTHROMBIN TIME 13.1 SECONDS (12.5-14.5); SODIUM LEVEL 139 MMOL/L (136-145); TOTAL PROTEIN 7.2 G/DL (5.7-8.2); TRIGLYCERIDES LEVEL 67 MG/DL (<150)
[2024-08-24 15:15] LABS: FERRITIN 178.7 NG/ML (10.5-307.3)
[2024-08-28 16:03] LABS: SOLUBLE TRANSFERRIN RECEPTOR 0.9 mg/L (0.76-1.76)
[2024-08-28 23:04] LABS: TESTOSTERONE FREE (DIRECT) 13.9 pg/mL (35.0-155.0)
== END ==
LOC: M RAD 13:03
PROVIDERS: ATTEND Family Medicine
DX: E29.1 Testicular hypofunction (principal); C61 Malignant neoplasm of prostate; E78.00 Pure hypercholesterolemia, unspecified; Z79.01 Long term (current) use of anticoagulants

== ENCOUNTER 2024-09-17 11:27 | Day surgery (SDC) | payer OTHER, MEDICAID ==
[~2024-09-17] VITALS: Ht 165.1 cm; Wt 71.7 kg
[~2024-09-17 11:27] MED LIST changes: +METH10CA PO; -METH10CA2 PO; +METH20TA29 PO; +NAPR220C14 PO
[2024-09-17] MEDS: LR 1,000 ML IV SCH (11:50)
[2024-09-17] MEDS ORDERED: fentaNYL 250 MCG/5 ML INJECTION As Ordered ONE (13:00)
[2024-09-17] MEDS ORDERED: MIDAZOLAM INJ 2MG/2ML VIAL As Ordered ONE (13:00)
[2024-09-17] MEDS ORDERED: LIDOCAINE 2% 100MG/5ML SDV (FOR ANES.) As Ordered ONE (13:00)
[2024-09-17] MEDS ORDERED: ONDANSETRON 4MG 2ML VIAL IV PRN ×3 (13:00→17:40)
[2024-09-17] MEDS: LIDOCAINE 1% SDV 5ML VIAL PN ONE (13:00)
[2024-09-17] MEDS: ROPIvacaine 0.5% 30ML VIAL PN ONE (13:00)
[2024-09-17] MEDS ORDERED: propofoL 200 MG/20 ML VIAL As Ordered ONE (13:00)
[2024-09-17] MEDS ORDERED: ROCURONIUM BROMIDE 50MG/5ML VIAL As Ordered ONE (13:00)
[2024-09-17] MEDS: MIDAZOLAM INJ 2MG/2ML VIAL IV PRN (13:10)
[2024-09-17] MEDS ORDERED: GLYCOPYRROLATE INJ 0.2 MG/ML 2 ML VIAL As Ordered ONE (13:38)
[2024-09-17] MEDS: ceFAZolin SOD 2 GM in IV 1 EA IV ONE (13:45)
[2024-09-17] MEDS: HEPARIN SOD (PORCINE) 5000UNITS/ML 1ML VIAL/SYRINGE SQ ONE (13:55)
[2024-09-17] MEDS ORDERED: KETOROLAC 60MG 2ML VIAL As Ordered ONE (15:34)
[2024-09-17] MEDS ORDERED: ONDANSETRON 4MG 2ML VIAL As Ordered ONE (15:34)
[2024-09-17] MEDS ORDERED: MEPERIDINE 25 MG/ML 1ML VIAL IV PRN (17:30)
[2024-09-17] MEDS ORDERED: oxyCODONE 5MG TAB PO PRN (17:30)
[2024-09-17] MEDS ORDERED: fentaNYL 100 MCG/2 ML INJECTION IV PRN (17:30)
[2024-09-17] MEDS ORDERED: METOCLOPRAMIDE INJ 10MG/2ML VIAL IV PRN (17:40)
[2024-09-17] MEDS ORDERED: NALOXONE INJ 0.4MG/1ML VIAL IV PRN (17:40)
[2024-09-17] MEDS ORDERED: NALBUPHINE HCL 10 MG/ML 1ML AMP IV PRN (17:40)
[2024-09-17] MEDS ORDERED: diphenhydrAMINE 50MG/ML VIAL IV PRN (17:40)
[2024-09-17] MEDS ORDERED: BUPIVACAINE HCL 0.5% 62.5 ML in NS 187.5 ML EPIDURAL SCH (17:40)
[2024-09-17] MEDS: LIDOCAINE 1% SDV 30ML VIAL As Ordered ONE (17:40)
[2024-09-17] MEDS ORDERED: EPIDURAL/PCA KEYS XX PRN (17:40)
[2024-09-17 18:22] LABS: HEMATOCRIT 39.6 % (42.0-52.0); HEMOGLOBIN 13.5 g/dl (13.5-17.5); MEAN CORPUSCULAR HEMOGLOBIN 32.1 pg (27.0-33.0); MEAN CORPUSCULAR HGB CONC 34.1 g/dl (32.0-36.5); MEAN CORPUSCULAR VOLUME 94.1 fl (80.0-96.0); PLATELET COUNT, AUTOMATED 316 10^3/uL (150-450); RED BLOOD COUNT 4.21 10^6/uL (4.30-6.10); WHITE BLOOD COUNT 17.2 10^3/uL (4.0-10.0)
[2024-09-17 18:42] LABS: BLOOD UREA NITROGEN 18 MG/DL (9-23); CALCIUM LEVEL 8.4 MG/DL (8.3-10.6); CARBON DIOXIDE LEVEL 26 MMOL/L (20-31); CHLORIDE LEVEL 106 MMOL/L (98-107); CREATININE FOR GFR 0.87 MG/DL (0.70-1.30); GLOMERULAR FILTRATION RATE > 60.0 (>49); GLUCOSE, FASTING 124 MG/DL (74-106); POTASSIUM SERUM 4.7 MMOL/L (3.5-5.1); SODIUM LEVEL 139 MMOL/L (136-145)
[2024-09-17] MEDS: fentaNYL CITRATE 500 MCG, BUPIVACAINE HCL 0.5% 31.25 ML in NS 208.75 ML EPIDURAL SCH (18:47)
[2024-09-17 19:00] VITALS: BP 94/64; TEMP 97.9; O2SAT 99
[2024-09-17 19:30] VITALS: BP 110/67; TEMP 97.8; O2SAT 98
[2024-09-17 20:20] VITALS: BP 115/68; TEMP 97.9; O2SAT 96
[2024-09-17] MEDS: ceFAZolin SOD 1 GM in DEXTROSE 5% (D5W) ADV/MINI-BAG 50 ML IV SCH (21:14)
[2024-09-17] MEDS: DOCUSATE SODIUM 100MG CAPSULE PO SCH (21:14)
[2024-09-17] MEDS: NS 500 ML IV SCH (21:16)
[2024-09-17 21:20] VITALS: BP 110/61; TEMP 97.6; O2SAT 93
[2024-09-17] MEDS ORDERED: LEVO112T2 PO (21:38)
[2024-09-17] MEDS ORDERED: HYDR-4468 PO (21:38)
[2024-09-17] MEDS ORDERED: HOME MED LIST COMPLETE! XX SCH (21:40)
[2024-09-17] MEDS: ACETAMINOPHEN 325 MG TAB PO PRN (21:57)
[2024-09-17 22:20] VITALS: BP 116/55; TEMP 97.8; O2SAT 94
[2024-09-17] MEDS: PREGABALIN 100 MG CAP (LYRICA) PO SCH (22:57)
[2024-09-17] MEDS: HYDROCORTISONE 5MG TABLET PO SCH (22:58)
[2024-09-17 23:21] VITALS: BP 113/57; TEMP 97.9; O2SAT 95
[2024-09-18 00:21] VITALS: BP 102/59; TEMP 97.6; O2SAT 93
[2024-09-18 01:21] VITALS: BP 106/60; TEMP 97.2; O2SAT 94
[2024-09-18 02:22] VITALS: BP 105/64; TEMP 97.3; O2SAT 95
[2024-09-18 03:22] VITALS: BP 114/66; TEMP 97.5; O2SAT 94
[2024-09-18 04:14] VITALS: BP 117/66; TEMP 97.9; O2SAT 96
[2024-09-18] MEDS: HEPARIN SOD (PORCINE) 5000UNITS/ML 1ML VIAL/SYRINGE SC SCH (05:44)
[2024-09-18] MEDS: LEVOTHYROXINE 112MCG TABLET (0.112MG) PO SCH (05:45)
[2024-09-18] MEDS ORDERED: LEVOTHYROXINE 125MCG TABLET (0.125MG) PO SCH (06:00)
[2024-09-18 06:26] LABS: HEMATOCRIT 39.2 % (42.0-52.0); HEMOGLOBIN 13.2 g/dl (13.5-17.5); MEAN CORPUSCULAR HGB CONC 33.7 g/dl (32.0-36.5); MEAN CORPUSCULAR VOLUME 95.1 fl (80.0-96.0); PLATELET COUNT, AUTOMATED 309 10^3/uL (150-450); RED BLOOD COUNT 4.12 10^6/uL (4.30-6.10); WHITE BLOOD COUNT 11.5 10^3/uL (4.0-10.0)
[2024-09-18 07:01] LABS: BLOOD UREA NITROGEN 19 MG/DL (9-23); CALCIUM LEVEL 8.6 MG/DL (8.3-10.6); CARBON DIOXIDE LEVEL 27 MMOL/L (20-31); CHLORIDE LEVEL 103 MMOL/L (98-107); CREATININE FOR GFR 0.87 MG/DL (0.70-1.30); GLOMERULAR FILTRATION RATE > 60.0 (>49); GLUCOSE, FASTING 133 MG/DL (74-106); POTASSIUM SERUM 4.9 MMOL/L (3.5-5.1); SODIUM LEVEL 137 MMOL/L (136-145)
[2024-09-18 08:00] VITALS: BP 119/73; TEMP 97.5; O2SAT 97
[2024-09-18] MEDS: LORazepam 0.5 MG TAB PO PRN (08:23)
[2024-09-18] MEDS: METHYLPHENIDATE 5 MG TAB PO SCH (08:24)
[2024-09-18] MEDS: HYDROCORTISONE 5MG TABLET PO SCH (08:24)
[2024-09-18] MEDS: ATORVASTATIN 20 MG TAB PO SCH (08:24)
[2024-09-18] MEDS: KETOROLAC 30 MG/ML 1ML VIAL IV PRN (11:54)
[2024-09-18] MEDS ORDERED: OXYC1TAB23 PO (13:13)
[2024-09-18] MEDS ORDERED: COLA100C5 PO (13:13)
[2024-09-18] MEDS ORDERED: CIPR-249 PO (13:13)
[2024-09-18] MEDS ORDERED: HYDROCORTISONE 5MG TABLET PO SCH (14:00)
== END 2024-09-18 14:55 | disposition home or self-care (01) ==
LOC: M SDC 11:27 → M MS5PR 19:00 → M SDC 09-18 14:55
PROVIDERS: ATTEND Urology
DX: C61 Malignant neoplasm of prostate (principal); I48.91 Unspecified atrial fibrillation; G47.30 Sleep apnea, unspecified; F11.21 Opioid dependence, in remission; Z88.0 Allergy status to penicillin; Z88.8 Allergy status to other drugs, medicaments and biological substances; Z79.899 Other long term (current) drug therapy
CPT/HCPCS: 36415; 38571; 55866; 80048; 85027; 86850; 86900; 86901; 88309; 96374; 96375; 96376; J0665; J0690; J1100; J1596; J1885; J2250; J2405; J3010; S2900

== ENCOUNTER → 2024-11-19 | Outpatient (CLI) | payer OTHER, MEDICAID ==
[~2024-11-19] MED LIST changes: +CIPR-249 PO; +COLA100C5 PO; +LEVO112T2 PO; +OXYC1TAB23 PO
== END ==
LOC: M LAB 16:14
PROVIDERS: ATTEND Family Medicine
DX: C61 Malignant neoplasm of prostate (principal)

== ENCOUNTER → 2024-11-27 | Outpatient (REF) | payer OTHER, MEDICAID ==
[2024-11-27 13:58] LABS: APPEARANCE, URINE HAZY (CLEAR); BACTERIA, URINE AUTO NEGATIVE (NEGATIVE); BILIRUBIN, URINE AUTO NEGATIVE (NEGATIVE); BLOOD, URINE BLOOD 2+ (NEGATIVE); COLOR, URINE YELLOW (YELLOW); GLUCOSE, URINE (UA) AUTO NEGATIVE (NEGATIVE); KETONE, URINE AUTO NEGATIVE (NEGATIVE); LEUKOCYTE ESTERASE, URINE AUTO 3+ (NEGATIVE); MUCUS, URINE SMALL (NEGATIVE); NITRITE, URINE AUTO NEGATIVE (NEGATIVE); PROTEIN, URINE AUTO 1+ mg/dL (NEGATIVE); RBC, URINE AUTO 87 /HPF (0-3); SPECIFIC GRAVITY URINE AUTO 1.023 (1.002-1.035); SQUAMOUS EPITHELIAL CELL UR AU 0 /HPF (0-6); UROBILINOGEN, URINE AUTO 0.2 mg/dL (0.0-2.0); WBC, URINE AUTO 94 /HPF (0-3)
== END ==
LOC: M SMT 12:53
PROVIDERS: ATTEND Urology
DX: N39.0 Urinary tract infection, site not specified (principal)

== ENCOUNTER → 2025-01-29 | Outpatient (CLI) | payer OTHER, MEDICAID ==
[2025-01-29 09:31] LABS: BASO # 0.1 10^3/uL (0.0-0.2); BASO % 0.9 % (0.0-1.0); EOS # 0.2 10^3/uL (0.0-0.5); HEMATOCRIT 38.6 % (42.0-52.0); HEMOGLOBIN 13.3 g/dl (13.5-17.5); LYMPH # 1.9 10^3/uL (1.5-5.0); LYMPH % 33.3 % (24.0-44.0); MEAN CORPUSCULAR HEMOGLOBIN 31.2 pg (27.0-33.0); MEAN CORPUSCULAR HGB CONC 34.5 g/dl (32.0-36.5); MEAN CORPUSCULAR VOLUME 90.6 fl (80.0-96.0); MONO # 0.6 10^3/uL (0.0-0.8); MONO % 11.5 % (2.0-8.0); NEUTROPHILS # 2.8 10^3/uL (1.5-8.5); NEUTROPHILS % 50.1 % (36.0-66.0); PLATELET COUNT, AUTOMATED 355 10^3/uL (150-450); RED BLOOD COUNT 4.26 10^6/uL (4.30-6.10); WHITE BLOOD COUNT 5.6 10^3/uL (4.0-10.0)
[2025-01-29 09:58] LABS: PSA SCREENING 0.04 NG/ML (< 4.00)
[2025-01-29 10:02] LABS: ALBUMIN 3.3 G/DL (3.2-5.2); ALKALINE PHOSPHATASE 160 U/L (40-129); ALT/SGPT 35 U/L (7.0-40); AST/SGOT 55 U/L (<34); BILIRUBIN,TOTAL 0.4 MG/DL (0.3-1.2); BLOOD UREA NITROGEN 11 MG/DL (9-23); CALCIUM LEVEL 9.1 MG/DL (8.3-10.6); CARBON DIOXIDE LEVEL 27 MMOL/L (20-31); CHLORIDE LEVEL 106 MMOL/L (98-107); CHOLESTEROL LEVEL 124 MG/DL (<200); CHOLESTEROL RISK RATIO 1.82 (<5); CREATININE FOR GFR 0.76 MG/DL (0.70-1.30); GLOMERULAR FILTRATION RATE > 60.0 (>49); GLUCOSE, FASTING 103 MG/DL (74-106); HDL CHOLESTEROL 68.1 MG/DL (>40); IRON (FE) 48 UG/DL (65-175); LDL CHOLESTEROL 40.3 MG/DL (<100); NON-HDL-C 55.9 MG/DL; PERCENT SATURATION 14.6 % (19.7-50.0); POTASSIUM SERUM 4.4 MMOL/L (3.5-5.1); PTH INTACT 41.1 PG/ML (18.5-88.0); SODIUM LEVEL 140 MMOL/L (136-145); TOTAL 25(OH) VITAMIN D 38.3 NG/ML (20.0-100.0); TOTAL IRON BINDING CAPACITY 329 UG/DL (250-425); TOTAL PROTEIN 7.1 G/DL (5.7-8.2); TRIGLYCERIDES LEVEL 78 MG/DL (<150)
[2025-01-29 10:03] LABS: FERRITIN 103.7 NG/ML (10.5-307.3); FREE T4 1.25 NG/DL (0.89-1.76)
== END ==
LOC: M LAB 08:52
PROVIDERS: ATTEND Family Medicine
DX: E29.1 Testicular hypofunction (principal); Z12.5 Encounter for screening for malignant neoplasm of prostate; E78.00 Pure hypercholesterolemia, unspecified
CPT/HCPCS: 36415; 80053; 80061; 82306; 82728; 83550; 83880; 83970; 84402; 84403; 84439; 85025; G0103

== ENCOUNTER → 2025-05-06 | Outpatient (CLI) | payer OTHER, MEDICAID ==
[~2025-05-06] MED LIST changes: -FLOM0.4C39 PO; +PREG-35 PO; -PREG100CA PO; +TAMS-18 PO
[2025-05-06 14:32] LABS: BASO # 0.1 10^3/uL (0.0-0.2); BASO % 0.8 % (0.0-1.0); EOS # 0.3 10^3/uL (0.0-0.5); EOS % 3.3 % (0.0-3.0); LYMPH # 2.7 10^3/uL (1.5-5.0); LYMPH % 34.4 % (24.0-44.0); MONO # 0.7 10^3/uL (0.0-0.8); MONO % 9.4 % (2.0-8.0); NEUTROPHILS # 4.1 10^3/uL (1.5-8.5); NEUTROPHILS % 52.0 % (36.0-66.0); PLATELET COUNT, AUTOMATED 281 10^3/uL (150-450)
[2025-05-06 15:01] LABS: PSA SCREENING 0.04 NG/ML (< 4.00)
[2025-05-06 15:02] LABS: IRON (FE) 85 UG/DL (65-175)
[2025-05-06 15:03] LABS: ALT/SGPT 24 U/L (7.0-40); AST/SGOT 33 U/L (<34); CALCIUM LEVEL 9.3 MG/DL (8.3-10.6); CARBON DIOXIDE LEVEL 30 MMOL/L (20-31); CHLORIDE LEVEL 105 MMOL/L (98-107); CHOLESTEROL LEVEL 124 MG/DL (<200); CHOLESTEROL RISK RATIO 2.06 (<5); CREATININE FOR GFR 0.80 MG/DL (0.70-1.30); GLOMERULAR FILTRATION RATE > 90.0 (>49); LDL CHOLESTEROL 40.1 MG/DL (<100); NON-HDL-C 63.9 MG/DL; PERCENT SATURATION 24.0 % (19.7-50.0); POTASSIUM SERUM 4.6 MMOL/L (3.5-5.1); PTH INTACT 28.6 PG/ML (18.5-88.0); SODIUM LEVEL 144 MMOL/L (136-145); TRIGLYCERIDES LEVEL 119 MG/DL (<150)
[2025-05-06 15:04] LABS: FREE T4 1.11 NG/DL (0.89-1.76); TOTAL 25(OH) VITAMIN D 75.1 NG/ML (20.0-100.0)
[2025-05-10 14:06] LABS: TESTOSTERONE FREE (DIRECT) 212.2 pg/mL (35.0-155.0); TESTOSTERONE TOTAL FOR T&D 1020.0 ng/dL (250-1100)
== END ==
LOC: M LAB 13:53
PROVIDERS: ATTEND Family Medicine
DX: E29.1 Testicular hypofunction (principal); D50.9 Iron deficiency anemia, unspecified; E03.9 Hypothyroidism, unspecified; E78.2 Mixed hyperlipidemia; C61 Malignant neoplasm of prostate; E55.9 Vitamin D deficiency, unspecified; Z12.5 Encounter for screening for malignant neoplasm of prostate
CPT/HCPCS: 36415; 80053; 80061; 82306; 82728; 83550; 83880; 83970; 84402; 84403; 84439; 85025; G0103

== ENCOUNTER 2025-05-31 10:06 | Outpatient (CLI) | payer OTHER, MEDICAID ==
[~2025-05-31] VITALS: Ht 165.1 cm; Wt 72.7 kg
[~2025-05-31 10:06] MED LIST changes: +ALBUTEROL SULFATE 2.5 MG/0.5 ML INH CONCENTRATE NEB SOLN INH PRN; +EPINEPHrine INJ 1 MG/ML 1ML AMP IM PRN; +diphenhydrAMINE 50 MG/ML VIAL IV PRN
[2025-05-31 10:15] VITALS: BP 149/75; O2SAT 98
[2025-05-31] MEDS: IRON SUCROSE 500 MG in NS 250 ML OVER 4 HRS IV ONE (10:55)
[2025-05-31 12:00] VITALS: BP 122/75; O2SAT 100
[2025-05-31 13:00] VITALS: BP 129/80; O2SAT 97
[2025-05-31 14:00] VITALS: BP 127/84; O2SAT 98
== END 2025-05-31 15:18 | disposition home or self-care (01) ==
LOC: M INFU 10:06
PROVIDERS: ATTEND Family Medicine
DX: D50.9 Iron deficiency anemia, unspecified (principal); Z88.0 Allergy status to penicillin; Z88.8 Allergy status to other drugs, medicaments and biological substances
CPT/HCPCS: 96365; 96366; J1756

== ENCOUNTER → 2025-06-10 | Outpatient (CLI) | payer OTHER, MEDICAID ==
[~2025-06-10] MED LIST changes: -ALBUTEROL SULFATE 2.5 MG/0.5 ML INH CONCENTRATE NEB SOLN INH PRN; -EPINEPHrine INJ 1 MG/ML 1ML AMP IM PRN; -diphenhydrAMINE 50 MG/ML VIAL IV PRN
[2025-06-10 14:18] LABS: BASO # 0.1 10^3/uL (0.0-0.2); BASO % 1.0 % (0.0-1.0); EOS # 0.3 10^3/uL (0.0-0.5); EOS % 4.0 % (0.0-3.0); LYMPH # 2.6 10^3/uL (1.5-5.0); LYMPH % 39.3 % (24.0-44.0); MONO # 0.8 10^3/uL (0.0-0.8); MONO % 11.5 % (2.0-8.0); NEUTROPHILS # 2.9 10^3/uL (1.5-8.5); NEUTROPHILS % 43.9 % (36.0-66.0); PLATELET COUNT, AUTOMATED 314 10^3/uL (150-450)
[2025-06-10 14:39] LABS: PSA SCREENING 0.04 NG/ML (< 4.00)
[2025-06-10 14:42] LABS: IRON (FE) 121 UG/DL (65-175)
[2025-06-10 14:43] LABS: ALT/SGPT 46 U/L (7.0-40); AST/SGOT 72 U/L (<34); CALCIUM LEVEL 8.5 MG/DL (8.3-10.6); CARBON DIOXIDE LEVEL 26 MMOL/L (20-31); CHLORIDE LEVEL 109 MMOL/L (98-107); CHOLESTEROL LEVEL 123 MG/DL (<200); CHOLESTEROL RISK RATIO 2.09 (<5); CREATININE FOR GFR 0.79 MG/DL (0.70-1.30); FREE T4 1.33 NG/DL (0.89-1.76); GLOMERULAR FILTRATION RATE > 90.0 (>49); LDL CHOLESTEROL 35.9 MG/DL (<100); NON-HDL-C 64.3 MG/DL; PERCENT SATURATION 38.4 % (19.7-50.0); POTASSIUM SERUM 4.7 MMOL/L (3.5-5.1); SODIUM LEVEL 144 MMOL/L (136-145); TRIGLYCERIDES LEVEL 142 MG/DL (<150)
[2025-06-10 14:44] LABS: TOTAL 25(OH) VITAMIN D 85.1 NG/ML (20.0-100.0)
[2025-06-10 15:26] LABS: PTH INTACT 41.5 PG/ML (18.5-88.0)
== END ==
LOC: M LAB 13:41
PROVIDERS: ATTEND Family Medicine
DX: E29.1 Testicular hypofunction (principal); D50.9 Iron deficiency anemia, unspecified; E78.00 Pure hypercholesterolemia, unspecified; Z12.5 Encounter for screening for malignant neoplasm of prostate
CPT/HCPCS: 36415; 80053; 80061; 82306; 82728; 83550; 83880; 83970; 84305; 84402; 84403; 84439; 85025; G0103

== ENCOUNTER 2025-06-26 08:24 | Outpatient (CLI) | payer OTHER, MEDICAID ==
[~2025-06-26 08:24] MED LIST changes: +ALBUTEROL SULFATE 2.5 MG/0.5 ML INH CONCENTRATE NEB SOLN INH PRN; +EPINEPHrine INJ 1 MG/ML 1ML AMP IM PRN; +IRON SUCROSE 400 MG in NS 250 ML OVER 2.5 HRS IV ONE; +NS (Normal Saline) 0.9% 1,000 ML IV SCH; +diphenhydrAMINE 50 MG/ML VIAL IV PRN
[2025-06-26 08:55] VITALS: BP 144/75; O2SAT 98
[2025-06-26] MEDS: IRON SUCROSE 500 MG in NS 250 ML OVER 4 HRS IV ONE (09:18)
[2025-06-26 10:30] VITALS: BP 140/70; O2SAT 99
[2025-06-26 11:30] VITALS: BP 130/74; O2SAT 98
[2025-06-26 12:30] VITALS: BP 139/86; O2SAT 98
[2025-06-26 13:15] VITALS: BP 149/75; O2SAT 100
== END 2025-06-26 13:15 ==
LOC: M INFU 08:24
PROVIDERS: ATTEND Family Medicine
DX: D50.9 Iron deficiency anemia, unspecified (principal); Z88.0 Allergy status to penicillin; Z88.1 Allergy status to other antibiotic agents
CPT/HCPCS: 96365; 96366; J1756

== ENCOUNTER 2025-08-13 20:05 | Emergency (ER) | payer OTHER, MEDICAID ==
[~2025-08-13] VITALS: Ht 165.1 cm; Wt 74.7 kg
[~2025-08-13 20:05] MED LIST changes: -ALBUTEROL SULFATE 2.5 MG/0.5 ML INH CONCENTRATE NEB SOLN INH PRN; -EPINEPHrine INJ 1 MG/ML 1ML AMP IM PRN; -IRON SUCROSE 400 MG in NS 250 ML OVER 2.5 HRS IV ONE; -NS (Normal Saline) 0.9% 1,000 ML IV SCH; -diphenhydrAMINE 50 MG/ML VIAL IV PRN
[2025-08-13 20:10] VITALS: BP 151/77; TEMP 97.3; O2SAT 97
[2025-08-13] MEDS ORDERED: BUPR1FIL3 PO (20:35)
[2025-08-13] MEDS ORDERED: TEST200I14 INJ (20:35)
== END 2025-08-13 22:40 | disposition left against medical advice (07) ==
LOC: M ED 20:05
DX: Z53.21 Procedure and treatment not carried out due to patient leaving prior to being seen by health care provider (principal)

== ENCOUNTER → 2025-10-01 | Outpatient (CLI) | payer OTHER, MEDICAID ==
[~2025-10-01] MED LIST changes: +BUPR1FIL3 PO; +TEST200I14 INJ
[2025-10-01 14:33] LABS: BASO # 0.1 10^3/uL (0.0-0.2); BASO % 1.1 % (0.0-1.0); EOS # 0.3 10^3/uL (0.0-0.5); EOS % 4.5 % (0.0-3.0); LYMPH # 2.0 10^3/uL (1.5-5.0); LYMPH % 37.1 % (24.0-44.0); MONO # 0.7 10^3/uL (0.0-0.8); MONO % 12.0 % (2.0-8.0); NEUTROPHILS # 2.5 10^3/uL (1.5-8.5); NEUTROPHILS % 44.9 % (36.0-66.0); PLATELET COUNT, AUTOMATED 301 10^3/uL (150-450)
[2025-10-01 14:45] LABS: ALT/SGPT 22 U/L (7.0-40); AST/SGOT 35 U/L (<34); CALCIUM LEVEL 8.7 MG/DL (8.3-10.6); CARBON DIOXIDE LEVEL 27 MMOL/L (20-31); CHLORIDE LEVEL 103 MMOL/L (98-107); CHOLESTEROL LEVEL 108 MG/DL (<200); CHOLESTEROL RISK RATIO 2.06 (<5); CREATININE FOR GFR 0.77 MG/DL (0.70-1.30); GLOMERULAR FILTRATION RATE > 90.0 (>49); LDL CHOLESTEROL 38.6 MG/DL (<100); NON-HDL-C 55.6 MG/DL; POTASSIUM SERUM 4.6 MMOL/L (3.5-5.1); PROSTATIC SPECIFIC AG MONITOR 0.04 NG/ML (< 4.00); PTH INTACT 40.5 PG/ML (18.5-88.0); SODIUM LEVEL 139 MMOL/L (136-145); TRIGLYCERIDES LEVEL 85 MG/DL (<150)
[2025-10-01 14:47] LABS: FREE T4 1.32 NG/DL (0.89-1.76); TOTAL 25(OH) VITAMIN D 81.7 NG/ML (20.0-100.0)
== END ==
LOC: M LAB 13:03
PROVIDERS: ATTEND Family Medicine
DX: E29.1 Testicular hypofunction (principal); D50.9 Iron deficiency anemia, unspecified; E03.9 Hypothyroidism, unspecified; E55.9 Vitamin D deficiency, unspecified; K76.0 Fatty (change of) liver, not elsewhere classified; E78.2 Mixed hyperlipidemia; C61 Malignant neoplasm of prostate

== ENCOUNTER → 2025-10-18 | Outpatient (CLI) | payer OTHER, MEDICAID ==
[2025-10-18 16:56] LABS: HIV 1&2 SCREEN NEGATIVE (NEGATIVE)
[2025-10-18 17:05] LABS: HEPATITIS C VIRUS ABY INDEX 0.15 INDEX (<0.8)
[2025-10-28 01:48] LABS: ALPHA 2-MACROGLOBULINS,QN 159 mg/dL (106-279); ALT (SGPT) P5P 14 U/L (9-46); APOLIPOPROTEIN A-1 170 mg/dL (94-176); FIBROSIS SCORE 0.10; FIBROSIS STAGE NO FIBROSIS (F0); GGT 17 U/L (3-70); HAPTOGLOBIN 156 mg/dL (43-212); NECROINFLAM ACT GRADE NO ACTIVITY (A0); NECROINFLAM ACT SCORE 0.03
== END ==
LOC: M PLALAB 11:58
PROVIDERS: ATTEND Family Medicine
DX: K74.00 Hepatic fibrosis, unspecified (principal)